=== PATIENT | female | born 1970 | race Caucasian/White ===

== ENCOUNTER 2019-08-06 18:53 | Emergency (ER) | payer OTHER ==
--- NOTE | 2019-08-06 20:01 | ER ---
Nurse's Notes [facility] Name: Ailin Dickson Age: 49 yrs Sex: Female : 1970 Arrival Date: 08/06/2019 Time: 18:55 Bed 10 Private MD: Diagnosis: Fall due to bumping against object;Pain in right leg-hamstring pull Presentation: 08/06 19:13 Presenting complaint: Patient states: I slipped on a freshly waxed floor on the fourth la1 floor and hyperextended my right leg and hit my left knee. Transition of care: patient was not received from another setting of care. Onset of symptoms was August 06, 2019. Risk Assessment: Do you want to hurt yourself or someone else? Patient reports no desire to harm self or others. Initial Sepsis Screen: Does the patient meet any 2 criteria? No. Patient's initial sepsis screen is negative. Does the patient have a suspected source of infection? No. Patient's initial sepsis screen is negative. Care prior to arrival: None. 19:13 Method Of Arrival: Wheelchair la1 19:13 Acuity: MADDI 4 la1 Triage Assessment: 20:11 General: Appears in no apparent distress. Behavior is calm, cooperative. ak1 Musculoskeletal: pt left with steady gait. Historical: - Allergies: 19:14 No Known Allergies; la1 - PMHx: 19:14 None; la1 - Immunization history:: Adult Immunizations up to date. - Social history:: Smoking status: Patient/guardian denies using tobacco. - Ebola Screening: : No symptoms or risks identified at this time. - Family history:: not pertinent. Screenin:12 Abuse screen: Denies threats or abuse. Denies injuries from another. Nutritional ak1 screening: No deficits noted. Tuberculosis screening: No symptoms or risk factors identified. Fall Risk None identified. Vital Signs: 19:14 BP 110 / 84; Pulse 81; Resp 16; Temp 97.5; Pulse Ox 100% on R/A; Weight 111.13 kg; la1 Height 5 ft. 6 in. (167.64 cm); 19:14 Body Mass Index 39.54 (111.13 kg, 167.64 cm) la1 ED Course: 18:55 Patient arrived in ED. as 19:14 Triage completed. la1 19:14 Arm band placed on right wrist. la1 19:34 Jean-Paul Reyes MD is Attending Physician. vijay 20:11 Shirley Joseph, RN is Primary Nurse. ak1 20:12 Patient has correct armband on for positive identification. ak1 20:12 No provider procedures requiring assistance completed. Patient did not have IV access ak1 during this emergency room visit. Administered Medications: No medications were administered Outcome: 20:00 Discharge ordered by . vijay 20:12 Discharged to home ambulatory. ak1 20:12 Condition: stable 20:12 Discharge instructions given to patient, Instructed on discharge instructions, follow up and referral plans. Demonstrated understanding of instructions, follow-up care. 20:13 Patient left the ED. ak1 Signatures: Jean-Paul Reyes MD MD cha Martinez, Amelia as Attema, Lee, RN RN la1 Shirley Joseph, MIREILLE RN ak1
--- NOTE | 2019-08-06 20:01 | EDPHYS ---
Physician Documentation [facility] Name: Ailin Dickson Age: 49 yrs Sex: Female : 1970 Arrival Date: 08/06/2019 Time: 18:55 Bed 10 Private MD: ED Physician Jean-Paul Reyes HPI: 08/06 19:56 This 49 yrs old Female presents to ER via Wheelchair with complaints of Fall vijay Injury, Leg Pain. 19:56 Details of fall: The patient fell from an upright position, while walking. Onset: The vijay symptoms/episode began/occurred just prior to arrival, today. Associated injuries: The patient sustained right hamstring, decreased range of motion, painful injury. Severity of symptoms: At their worst the symptoms were moderate, in the emergency department the symptoms are unchanged. The patient has not experienced similar symptoms in the past. Historical: - Allergies: 19:14 No Known Allergies; la1 - PMHx: 19:14 None; la1 - Immunization history:: Adult Immunizations up to date. - Social history:: Smoking status: Patient/guardian denies using tobacco. - Ebola Screening: : No symptoms or risks identified at this time. - Family history:: not pertinent. ROS: 19:56 Constitutional: Negative for fever, chills, and weight loss, Eyes: Negative for injury, vijay pain, redness, and discharge, ENT: Negative for injury, pain, and discharge, Neck: Negative for injury, pain, and swelling, Cardiovascular: Negative for chest pain, palpitations, and edema, Respiratory: Negative for shortness of breath, cough, wheezing, and pleuritic chest pain, Abdomen/GI: Negative for abdominal pain, nausea, vomiting, diarrhea, and constipation, Back: Negative for injury and pain, : Negative for injury, bleeding, discharge, and swelling, Skin: Negative for injury, rash, and discoloration, Neuro: Negative for headache, weakness, numbness, tingling, and seizure, Psych: Negative for depression, anxiety, suicide ideation, homicidal ideation, and hallucinations, Allergy/Immunology: Negative for hives, rash, and allergies, Endocrine: Negative for neck swelling, polydipsia, polyuria, polyphagia, and marked weight changes, Hematologic/Lymphatic: Negative for swollen nodes, abnormal bleeding, and unusual bruising. 19:56 MS/extremity: Positive for decreased range of motion, pain, of the left hamstring. Exam: 19:56 Constitutional: This is a well developed, well nourished patient who is awake, alert, vijay and in no acute distress. Head/Face: Normocephalic, atraumatic. Eyes: Pupils equal round and reactive to light, extra-ocular motions intact. Lids and lashes normal. Conjunctiva and sclera are non-icteric and not injected. Cornea within normal limits. Periorbital areas with no swelling, redness, or edema. ENT: Nares patent. No nasal discharge, no septal abnormalities noted. Tympanic membranes are normal and external auditory canals are clear. Oropharynx with no redness, swelling, or masses, exudates, or evidence of obstruction, uvula midline. Mucous membranes moist. Neck: Trachea midline, no thyromegaly or masses palpated, and no cervical lymphadenopathy. Supple, full range of motion without nuchal rigidity, or vertebral point tenderness. No Meningismus. Chest/axilla: Normal chest wall appearance and motion. Nontender with no deformity. No lesions are appreciated. Cardiovascular: Regular rate and rhythm with a normal S1 and S2. No gallops, murmurs, or rubs. Normal PMI, no JVD. No pulse deficits. Respiratory: Lungs have equal breath sounds bilaterally, clear to auscultation and percussion. No rales, rhonchi or wheezes noted. No increased work of breathing, no retractions or nasal flaring. Abdomen/GI: Soft, non-tender, with normal bowel sounds. No distension or tympany. No guarding or rebound. No evidence of tenderness throughout. Back: No spinal tenderness. No costovertebral tenderness. Full range of motion. Skin: Warm, dry with normal turgor. Normal color with no rashes, no lesions, and no evidence of cellulitis. Neuro: Awake and alert, GCS 15, oriented to person, place, time, and situation. Cranial nerves II-XII grossly intact. Motor strength 5/5 in all extremities. Sensory grossly intact. Cerebellar exam normal. Normal gait. Psych: Awake, alert, with orientation to person, place and time. Behavior, mood, and affect are within normal limits. 19:56 Musculoskeletal/extremity: Extremities: noted in the right hamstring: decreased ROM, pain, tenderness. Vital Signs: 19:14 BP 110 / 84; Pulse 81; Resp 16; Temp 97.5; Pulse Ox 100% on R/A; Weight 111.13 kg; la1 Height 5 ft. 6 in. (167.64 cm); 19:14 Body Mass Index 39.54 (111.13 kg, 167.64 cm) la1 MDM: 19:34 Patient medically screened. [facility] 19:59 Data reviewed: vital signs, nurses notes. [facility] Administered Medications: No medications were administered Disposition: 08/06/19 20:00 Discharged to Home. Impression: Fall due to bumping against object, Pain in right leg - hamstring pull. - Condition is Stable. - Discharge Instructions: Musculoskeletal Pain, RICE for Routine Care of Injuries, RICE for Routine Care of Injuries, [id number], Fall Prevention in the Home, [id number]-[id number], Heat Therapy, Heat Therapy, [id number]. - Medication Reconciliation Form, Thank You Letter, Antibiotic Education, Prescription Opioid Use form. - Follow up: Emergency Department; When: 2 - 3 days; Reason: Recheck today's complaints, Continuance of care, Re-evaluation by your physician. - Problem is new. - Symptoms have improved. Signatures: Jean-Paul Reyes MD MD cha Attema, Lee RN RN la1 Shirley Joseph RN RN ak1 Corrections: (The following items were deleted from the chart) 20:13 20:00 08/06/2019 20:00 Discharged to Home. Impression: Fall due to bumping against ak1 object; Pain in right leg - hamstring pull. Condition is Stable. Forms are Medication Reconciliation Form, Thank You Letter, Antibiotic Education, Prescription Opioid Use. Follow up: Emergency Department; When: 2 - 3 days; Reason: Recheck today's complaints, Continuance of care, Re-evaluation by your physician. Problem is new. Symptoms have improved. [facility]
[2019-08-06 21:48] VITALS: BP 110/84; TEMP 97.5; O2SAT 100
== END 2019-08-06 20:13 | disposition home or self-care (01) ==
LOC: ER 18:53
DX: M79.604 Pain in right leg (principal); W18.00XA Striking against unspecified object with subsequent fall, initial encounter; Y93.89 Activity, other specified; Y92.9 Unspecified place or not applicable; Y99.9 Unspecified external cause status
CPT/HCPCS: 99281

== ENCOUNTER 2020-02-21 08:20 | Emergency (ER) | payer OTHER, SELFPAY ==
--- NOTE | 2020-02-21 08:44 | EDPHYS ---
Physician Documentation [facility] Name: Ailin Dickson Age: 49 yrs Sex: Female : 1970 Arrival Date: 02/21/2020 Time: 08:23 Bed 13 Private MD: ED Physician Scotty Marcelino HPI: 02/20 08:35 This 49 yrs old Female presents to ER via Unassigned with complaints of Back ps1 Pain. 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 Large ps1 patient and now having lower back pain localized to right lower back and sacrum. Did not fall or injure back traumatically. Pain rated as moderate to severe with movement. No vertebral point tenderness, FND, urinary complaints, or anesthesia. . Historical: - Allergies: 08:44 No Known Allergies; jb4 - Immunization history:: Adult Immunizations up to date. - Social history:: Smoking status: Patient denies any tobacco usage or history of. ROS: 08:35 Constitutional: Negative for fever, chills, and weight loss, Eyes: Negative for injury, ps1 pain, redness, and discharge, ENT: Negative for injury, pain, and discharge, Cardiovascular: Negative for chest pain, palpitations, and edema, Respiratory: Negative for shortness of breath, cough, wheezing, and pleuritic chest pain, Abdomen/GI: Negative for abdominal pain, nausea, vomiting, diarrhea, and constipation, MS/Extremity: Negative for injury and deformity, Skin: Negative for injury, rash, and discoloration, Neuro: Negative for headache, weakness, numbness, tingling, and seizure. 08:35 Back: Positive for pain with movement. Exam: 08:35 Constitutional: This is a well developed, well nourished patient who is awake, alert, ps1 and in no acute distress. Head/Face: Normocephalic, atraumatic. Eyes: Pupils equal round and reactive to light, extra-ocular motions intact. Lids and lashes normal. Conjunctiva and sclera are non-icteric and not injected. 08:35 Chest/axilla: Inspection: normal. 08:35 Cardiovascular: Rate: normal. 08:35 Respiratory: the patient does not display signs of respiratory distress, Respirations: normal. 08:35 Back: pain, that is moderate, of the sacrum, right mid back and right low back, muscle spasm, is appreciated in the right mid back and right low back. Vital Signs: 08:37 BP 110 / 74; Pulse 96; Resp 16; Temp 97.9(O); Pulse Ox 99% ; Weight 113.4 kg; Height 5 jb4 ft. 6 in. (167.64 cm); Pain 6/10; 08:37 Body Mass Index 40.35 (113.40 kg, 167.64 cm) jb4 Procedures: 08:35 Performed Osteopathic Manipulation. Patient examined in prone and seated position. ps1 Styles screen performed. Paraspinal spasm and right sacroiliac pain. No vertebral point tenderness. HVLA performed to SI joint and mid thoracic area. Improved ROM. Still has expected pain. Improved paraspinal spasm and alignment. . MDM: 08:35 Data reviewed: vital signs, nurses notes. Counseling: I had a detailed discussion with ps1 the patient and/or guardian regarding: the historical points, exam findings, and any diagnostic results supporting the discharge/admit diagnosis, to return to the emergency department if symptoms worsen or persist or if there are any questions or concerns that arise at home. 08:43 Patient medically screened. ps1 Administered Medications: No medications were administered Disposition: 02/21/20 08:43 Discharged to Home. Impression: Muscle spasm of back. - Condition is Stable. - Discharge Instructions: Muscle Cramps and Spasms. - Prescriptions for Robaxin 500 mg Oral Tablet - take 2 tablet by ORAL route every 6 hours As needed; 40 tablet. - Work release form, Medication Reconciliation Form, Thank You Letter, Antibiotic Education, Prescription Opioid Use form. - Follow up: Emergency Department; When: As needed; Reason: Trouble breathing, Worsening of condition, weakness in leg, urinary complaints, incontinence. . - Problem is new. - Symptoms have improved. Signatures: An Casas RN RN ss Augustin Cavazos RN RN jb4 Scotty Marcelino MD MD ps1 Corrections: (The following items were deleted from the chart) 08:55 08:43 02/21/2020 08:43 Discharged to Home. Impression: Muscle spasm of back. Condition ss is Stable. Forms are Medication Reconciliation Form, Thank You Letter, Antibiotic Education, Prescription Opioid Use. Follow up: Emergency Department; When: As needed; Reason: Trouble breathing, Worsening of condition, weakness in leg, urinary complaints, incontinence. . Problem is new. Symptoms have improved. ps1
--- NOTE | 2020-02-21 08:44 | ER ---
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 Coronavirus screen: Proceed with normal triage. Patient denies a cough. Patient denies shortness of breath or difficulty breathing. Patient denies measured and/or subjective temperature greater than 100.4F prior to today's visit. Patient denies travel on a cruise ship or to a country the [facility] currently lists as an affected area. Patient denies contact with known and/or suspected case of COVID-19. Ebola Screen: Patient denies exposure to infectious person. Patient denies travel to an Ebola-affected area in the 21 days before illness onset. Initial Sepsis Screen: Does the patient meet any 2 criteria? No. Patient's initial sepsis screen is negative. Does the patient have a suspected source of infection? No. Patient's initial sepsis screen is negative. Risk Assessment: Do you want to hurt yourself or someone else? Patient reports no desire to harm self or others. Onset of symptoms was February 21, 2020. 08:37 Acuity: MADDI 4 jb4 08:37 Method Of Arrival: Ambulatory jb4 Historical: - Allergies: 08:44 No Known Allergies; jb4 - Immunization history:: Adult Immunizations up to date. - Social history:: Smoking status: Patient denies any tobacco usage or history of. Screenin:49 Abuse screen: Denies threats or abuse. Denies injuries from another. Nutritional ss screening: No deficits noted. Tuberculosis screening: Never had TB. Fall Risk None identified. Assessment: 08:30 General: Appears uncomfortable, Behavior is calm, cooperative, Denies fever, feeling ss ill, fatigue, chills. Pain: Complains of pain in back and right low back and right mid back and sacrum Pain currently is 7 out of 10 on a pain scale. Quality of pain is described as aching, tender, Is continuous. Neuro: Level of Consciousness is awake, alert, obeys commands, Oriented to person, place, time, situation. Cardiovascular: Capillary refill < 3 seconds is brisk in bilateral fingers. Respiratory: Airway is patent Respiratory effort is even, unlabored, Respiratory pattern is regular, symmetrical. GI: No signs and/or symptoms were reported involving the gastrointestinal system. EENT: Oral mucosa is moist. Derm: Skin is intact, is healthy with good turgor, Skin is pink, warm \T\ dry. normal. Musculoskeletal: Circulation, motion, and sensation intact. Range of motion: intact in all extremities. Vital Signs: 08:37 BP 110 / 74; Pulse 96; Resp 16; Temp 97.9(O); Pulse Ox 99% ; Weight 113.4 kg; Height 5 jb4 ft. 6 in. (167.64 cm); Pain 6/10; 08:37 Body Mass Index 40.35 (113.40 kg, 167.64 cm) jb4 ED Course: 08:23 Patient arrived in ED. am2 08:24 Scotty Marcelino MD is Attending Physician. ps1 08:25 Nadya Boone RN is Primary Nurse. ph 08:42 Triage completed. jb4 08:44 Arm band placed on right wrist. jb4 08:49 Patient has correct armband on for positive identification. Bed in low position. Call light in reach. 08:53 No provider procedures requiring assistance completed. Patient did not have IV access ph during this emergency room visit. Administered Medications: No medications were administered Outcome: 08:43 Discharge ordered by . ps1 08:53 Discharged to home ambulatory. ph 08:53 Condition: good 08:53 Discharge instructions given to patient, Instructed on discharge instructions, follow up and referral plans. medication usage, Demonstrated understanding of instructions, follow-up care, medications, Prescriptions given X 1. 08:55 Patient left the ED. Signatures: An Casas RN RN Nadya Boone RN RN Augustin Cavazos RN RN 4 Arlen Rosario am2 Scotty Marcelino MD MD ps1
[2020-02-21 09:00] VITALS: BP 110/74; TEMP 97.9; O2SAT 99
== END 2020-02-21 08:55 | disposition home or self-care (01) ==
LOC: ER 08:20
PROC: 7W0 Osteopathic, Anatomical Regions, Treatment (ICD-10-PCS; principal; 2020-02-21)
PROC: 7W02X3Z Osteopathic Treatment of Thoracic Region using High Velocity-Low Amplitude Forces (ICD-10-PCS; 2020-02-21)
DX: M62.830 Muscle spasm of back (principal)
CPT/HCPCS: 99282

== ENCOUNTER 2020-05-12 03:52 | Emergency (ER) | payer OTHER ==
[2020-05-12] MEDS ORDERED: ACETAMINOPHEN 500 MG TAB ONE (04:45)
[2020-05-12] MEDS ORDERED: dexAMETHasone 4 MG TAB ONE (04:45)
--- NOTE | 2020-05-12 05:32 | ER ---
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 Pt wh states feeling feverish at beginning of the shift and rechecked temp now at 102. Pt also C/O cough, a little SOB and body aches that all started tonight. Coronavirus screen: Surgical mask placed on patient. Patient moved to private room, placed in contact and droplet isolation with eye protection until further assessment. Patient reports a cough. Patient reports shortness of breath or difficulty breathing. Patient reports a measured and/or subjective temperature greater than 100.4F. Patient denies travel on a cruise ship or to a country the [facility] currently lists as an affected area. Patient reports contact with known and/or suspected case of COVID-19. Ebola Screen: Patient negative for fever greater than or equal to 101.5 degrees Fahrenheit, and additional compatible Ebola Virus Disease symptoms Patient denies exposure to infectious person. Initial Sepsis Screen: Does the patient meet any 2 criteria? Temp <36.0*C (96.8*F)) or > 38.3*C (100.9*F). HR > 90 bpm. Does the patient have a suspected source of infection? Yes: Productive cough/pneumonia If YES to both, name of provider notified: Jhon Low MD. Risk Assessment: Do you want to hurt yourself or someone else? Patient reports no desire to harm self or others. Onset of symptoms was May 12, 2020. 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 - Social history:: Smoking status: Patient reports the use of cigarette tobacco products, Patient uses [employer], Patient/guardian denies using. - Family history:: not pertinent. - Hospitalizations: : No recent hospitalization is reported. Screenin:45 Abuse screen: Denies threats or abuse. Denies injuries from another. Nutritional screening: No deficits noted. Tuberculosis screening: No symptoms or risk factors identified. Fall Risk None identified. Assessment: 04:15 Reassessment: Pt flagging for Sepsis, MD notified. 04:20 General: Appears in no apparent distress. Behavior is calm, cooperative, appropriate wh for age. Pain: Denies pain. Neuro: Level of Consciousness is awake, alert, obeys commands, Oriented to person, place, time, situation, Appropriate for age. Cardiovascular: Heart tones S1 S2. Respiratory: Reports shortness of breath cough that is Airway is patent Respiratory effort is even, unlabored, Respiratory pattern is regular, symmetrical, Breath sounds are clear bilaterally. GI: Abdomen is flat, non-distended. : No signs and/or symptoms were reported regarding the genitourinary system. EENT: Throat is pink. Derm: Skin is intact, is healthy with good turgor, Skin is pink, warm \T\ dry. normal. Musculoskeletal: Circulation, motion, and sensation intact. 05:48 Reassessment: Patient appears in no apparent distress at this time. No changes from previously documented assessment. Patient and/or family updated on plan of care and expected duration. Pain level reassessed. Patient is alert, oriented x 3, equal unlabored respirations, skin warm/dry/pink. Patient states feeling better. Patient states symptoms have improved. Vital Signs: 04:05 BP 131 / 95; Pulse 98; Resp 18; Temp 102; Pulse Ox 99% ; Weight 116.12 kg; Height 5 ft. 6 in. (167.64 cm); 04:47 BP 122 / 79; Pulse 98; Resp 18; Pulse Ox 98% on R/A; 05:48 BP 109 / 82; Pulse 94; Resp 18; Temp 99; Pulse Ox 98% on R/A; 04:05 Body Mass Index 41.32 (116.12 kg, 167.64 cm) ED Course: 04:01 Patient arrived in ED. ag3 04:01 Lucero Ham is Primary Nurse. 04:02 Jhon Low MD is Attending Physician. rn 04:45 Triage completed. 04:47 Arm band placed on right wrist. 04:47 Patient has correct armband on for positive identification. Bed in low position. Call light in reach. Side rails up X 1. Pulse ox on. NIBP on. 04:53 CXR XRAY In Process Unspecified. EDMS 05:49 No provider procedures requiring assistance completed. Patient did not have IV access during this emergency room visit. Administered Medications: 04:41 Drug: Tylenol 1000 mg Route: PO; 05:49 Follow up: Response: No adverse reaction; Temperature is decreased 04:41 Drug: Decadron 10 mg Route: PO; 05:49 Follow up: Response: No adverse reaction Outcome: 05:32 Discharge ordered by . rn 05:49 Discharged to home ambulatory. 05:49 Condition: stable 05:49 Discharge instructions given to patient, Instructed on discharge instructions, follow up and referral plans. POC Demonstrated understanding of instructions, follow-up care, POC 05:50 Patient left the ED. Signatures: Dispatcher [employer] EDMS Jhon Low MD MD rn [place], Lucero Siri Carmen ag3
--- NOTE | 2020-05-12 05:33 | EDPHYS ---
Physician Documentation [facility] Name: Ailin Dickson Age: 49 yrs Sex: Female : 1970 Arrival Date: 05/12/2020 Time: 04:01 Bed 8 Private MD: ED Physician Jhon Low HPI: 05/12 04:35 This 49 yrs old Female presents to ER via Unassigned with complaints of Fever.rn 04:35 The patient reports fever, that was measured at 102 degrees Fahrenheit. Onset: The rn symptoms/episode began/occurred this morning. Modifying factors: The patient has had contact with sick at the hospital. Associated signs and symptoms: Pertinent positives: headache, myalgias. Severity of symptoms: At their worst the symptoms were mild in the emergency department the symptoms are unchanged. The patient has not experienced similar symptoms in the past. 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 + vapes, no chronic medical problems. . 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 - Social history:: Smoking status: Patient reports the use of cigarette tobacco products, Patient uses [employer], Patient/guardian denies using. - Family history:: not pertinent. - Hospitalizations: : No recent hospitalization is reported. ROS: 04:35 Constitutional: + fever Eyes: Negative for injury, pain, redness, and discharge, ENT: rn Negative for injury, pain, and discharge, Neck: Negative for injury, pain, and swelling, Cardiovascular: Negative for chest pain, palpitations, and edema, Respiratory: Negative for shortness of breath, cough, wheezing, and pleuritic chest pain, Abdomen/GI: Negative for abdominal pain, nausea, vomiting, diarrhea, and constipation, MS/Extremity: Negative for injury and deformity, Skin: Negative for injury, rash, and discoloration, Neuro: Negative for numbness, tingling, and seizure. Exam: 04:35 Constitutional: This is a well developed, well nourished patient who is awake, alert, rn and in no acute distress. Head/Face: Normocephalic, atraumatic. Eyes: Conjunctiva wnl. Periorbital areas with no swelling, redness, or edema. Neck: Trachea midline, no masses palpated, and no cervical lymphadenopathy. Supple, full range of motion without nuchal rigidity. No Meningismus. Cardiovascular: Tachycardic, regular. No pulse deficits. Respiratory: Speaking full sentences. No increased work of breathing, no retractions or nasal flaring. Abdomen/GI: soft, non-tender Skin: Warm, dry MS/ Extremity: Pulses equal, no cyanosis. Neuro: Awake and alert, GCS 15 Vital Signs: 04:05 BP 131 / 95; Pulse 98; Resp 18; Temp 102; Pulse Ox 99% ; Weight 116.12 kg; Height 5 ft. wh 6 in. (167.64 cm); 04:47 BP 122 / 79; Pulse 98; Resp 18; Pulse Ox 98% on R/A; wh 05:48 BP 109 / 82; Pulse 94; Resp 18; Temp 99; Pulse Ox 98% on R/A; wh 04:05 Body Mass Index 41.32 (116.12 kg, 167.64 cm) MDM: 04:02 Patient medically screened. rn 05:30 Differential diagnosis: viral Infection, bacterial infection, URI. Data reviewed: vital rn signs, nurses notes, lab test result(s), radiologic studies, plain films, and as a result, I will discharge patient. Test interpretation: by ED physician or midlevel provider: plain radiologic studies, CXR neg for acute infiltrate. Counseling: I had a detailed discussion with the patient and/or guardian regarding: the historical points, exam findings, and any diagnostic results supporting the discharge/admit diagnosis, lab results, radiology results, the need for outpatient follow up, to return to the emergency department if symptoms worsen or persist or if there are any questions or concerns that arise at home. Special discussion: I discussed with the patient/guardian in detail that at this point there is no indication for admission to the hospital. It is understood, however, that if the symptoms persist or worsen the patient needs to return immediately for re-evaluation. 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 . 05/12 04:07 Order name: Flu; Complete Time: 05:10 ss 05/12 04:07 Order name: Strep; Complete Time: 05:10 ss 05/12 04:07 Order name: CXR XRAY 05/12 04:07 Order name: COVID-19 05/12 05:08 Order name: Throat Culture EDNV 05/12 04:07 Order name: Document PUI#; Complete Time: 04:41 ss 05/12 04:07 Order name: Droplet/Contact Precautions; Complete Time: 04:41 ss 05/12 04:07 Order name: Labs collected and sent; Complete Time: 04:41 ss 05/12 04:07 Order name: Notify Health Dept [phone]/ ; Complete Time: 04:41 ss 05/12 04:07 Order name: O2 Per Protocol; Complete Time: 04:42 ss Administered Medications: 04:41 Drug: Tylenol 1000 mg Route: PO; 05:49 Follow up: Response: No adverse reaction; Temperature is decreased 04:41 Drug: Decadron 10 mg Route: PO; 05:49 Follow up: Response: No adverse reaction Disposition: 05/12/20 05:32 Discharged to Home. Impression: Fever, unspecified, Viral Syndrome. - Condition is Stable. - Discharge Instructions: Fever, Adult, COVID-19. - Medication Reconciliation Form, Thank You Letter, Antibiotic Education, Prescription Opioid Use form. - Follow up: Private Physician; When: As needed; Reason: Recheck today's complaints, Re-evaluation by your physician. - Problem is new. - Symptoms are unchanged. Signatures: Dispatcher [employer] Jhon Sequeira MD MD rn Smirch, Shelby, RN RN ss Habalo, Winsy Corrections: (The following items were deleted from the chart) 05:50 05:32 05/12/2020 05:32 Discharged to Home. Impression: Fever, unspecified; Viral wh Syndrome. Condition is Stable. Forms are Medication Reconciliation Form, Thank You Letter, Antibiotic Education, Prescription Opioid Use. Follow up: Private Physician; When: As needed; Reason: Recheck today's complaints, Re-evaluation by your physician. Problem is new. Symptoms are unchanged. rn
[2020-05-12 06:08] VITALS: TEMP 102
[2020-05-12 07:13] VITALS: BP 122/79; O2SAT 98
--- NOTE | 2020-05-12 12:15 | RAD REPORT ---
EXAM DESCRIPTION: XR Chest, 1 View CLINICAL HISTORY: The patient is 49 years old and is Female; PUI;Cough TECHNIQUE: Frontal view of the chest. COMPARISON: No relevant prior studies available. FINDINGS: LUNGS: There are slightly low lung volumes. No consolidation. PLEURAL SPACE: Unremarkable. No pneumothorax. HEART: Unremarkable. No cardiomegaly. MEDIASTINUM: Unremarkable. BONES/JOINTS: Unremarkable. IMPRESSION: No acute cardiopulmonary process. Electronically signed by: Lexie Aldana MD 05/12/2020 5:19 AM CDT Due to temporary technical issues with the PACS/Fluency reporting system, reports are being signed by the in house radiologist without review as a courtesy to ensure prompt reporting. The interpreting r adiologist is fully responsible for the content of the report.
== END 2020-05-12 05:50 | disposition home or self-care (01) ==
LOC: ER 03:52
DX: U07.1 COVID-19 (principal); B34.9 Viral infection, unspecified; F17.290 Nicotine dependence, other tobacco product, uncomplicated
CPT/HCPCS: 87070; 87081; 87804 ×2; 71045; 99283; U0002; J8540

== ENCOUNTER 2020-08-20 19:38 | Emergency (ER) | payer OTHER ==
--- OUTSIDE RECORDS SUMMARY | 2020-08-20 19:39 | XMS REPORT ---
:1970 Author Organization [employer] Care Team Providers Name Role Phone Marco Antonio Lopez Provider Role Unavailable Allergies, Adverse Reactions, Alerts Substance Reaction Event Type N.K.D.A. Info Not Available Non Drug Allergy Problems Problem Type Condition Code Onset Dates Condition Statu s Assessment Elevated LFTs R79.89 Active Assessment Type 2 diabetes mellitus with E11.65 Active hyperglycemia, without long-term current use of insulin Assessment Mixed hyperlipidemia E78.2 Active Problem Type 2 diabetes mellitus with E11.65 Active hyperglycemia, without long-term current use of insulin Problem Current moderate episode of major F32.1 Active depressive disorder without prior episode Problem Mixed hyperlipidemia E78.2 Active Problem Body mass index (BMI) 40.0-44.9, Z68.41 Active adult Problem Nicotine dependence, uncomplicated, F17.200 Active unspecified nicotine product type Problem Morbid (severe) obesity due to E66.01 Active excess calories Assessment Nicotine dependence, uncomplicated, F17.200 Active unspecified nicotine product type Assessment Elevated BP without diagnosis of R03.0 Active hypertension Assessment History of 2019 novel coronavirus Z86.19 Active disease (COVID-19) Assessment Body mass index (BMI) 40.0-44.9, Z68.41 Active adult Assessment Current moderate episode of major F32.1 Active depressive disorder without prior episode Assessment Morbid (severe) obesity due to E66.01 Active excess calories Assessment Equivocal immunity to COVID-19 Z78.9 Active virus Medications Medication Code Code Instructions Start End Status Dosage System Date Date Atorvastatin ND 00618926844 10 MG Orally Jul 15, Active 1 tablet Calcium Once a day 2019 Xigduo XR ND 08865476274 5-1000 MG Orally Jul 15, Oct 12, Active 1 tablet Once a day 2019 2019 Zoloft ND 62752184830 50 MG Orally Jul 15, Active Take 1 /2 Once a day 2019 tab QD x 1 week then take 1 tab QD Results No Known Results Summary Purpose [employer] Submission
--- OUTSIDE RECORDS SUMMARY | 2020-08-20 19:39 | XMS REPORT ---
:1970 Author Organization [facility] Address [address] [place] [address] Care Team Providers Name Role Phone Marco Antonio Lopez Unavailable [phone] PROBLEMS Type Condition ICD9-CM MWV61-UE Onset Condition SNOMED Code Notes Code Code Dates Status Problem Type 2 diabetes E11.65 Active 47605665 mellitus with hyperglycemia, without long-term current use of insulin Problem Mixed E78.2 Active 064619874 hyperlipidemia Problem Body mass index Z68.41 Active 885024448 (BMI) 40.0-44.9, adult Problem Morbid (severe) E66.01 Active 65444725716692 obesity due to excess calories Problem Nicotine F17.200 Active 42434283 dependence, uncomplicated, unspecified nicotine product type Problem Current moderate F32.1 Active 28694364 episode of major depressive disorder without prior episode ALLERGIES No Known Allergies ENCOUNTERS from 1970 to 2020-08-12 Encounter Location Date Provider Diagnosis [facility] [address], Marco Antonio John Type [address], [place] [address] hyperglycemia, without long-term curre nt use of insulin E11. 65 ; Current moderat e episode of donte r depressive diso rder without prior e pisode F32.1 ; Mixed hyperlipidemia E78.2 ; Elevated LFTs R 79.89 ; Equivocal immun ity to COVID-19 virus Z78.9 ; History of 2019 novel coronavirus dis ease (COVID-19) Z86. 19 ; Elevated BP wit hout diagnosis of hypertension R0 3.0 ; Morbid (severe) obesity due to excess c alories E66.01 ; Body m ass index (BMI) 40. 0-44.9, adult Z68.41 an d Nicotine depend ence, uncomplicated, unspecified garret otine product type F1 7.200 IMMUNIZATIONS Vaccine Route Administration Date Status PNEUMAVAX 23 IM Intramuscular Jun 24, 2020 Administered Hepatitis A (adult) Unknown April 07, 2016 Administered Afluria Unknown Sep 12, 2019 Administered Adacel (Tdap) Unknown Jun 08, 2016 Administered SOCIAL HISTORY Tobacco Use: Social History Observation Description Date Details (start date - stop date) Never Smoker Sex Assigned At : Social History Observation Description Sex Assigned At Unknown PHQ9 Question Answer Notes Little interest or pleasure in doing things Nearly every day Feeling down, depressed, or hopeless Nearly every day Trouble falling or staying asleep or sleeping too much More than half the days Feeling tired or having little energy Nearly every day Poor appetite or overeating More than half the days Feeling bad about yourself, or that you are a failure, Sever al days or have let yourself or your family down Trouble concentrating on things, such as reading the Not at all newspaper or watching television Moving or speaking so slowly that other people could Not at all have noticed; or the opposite, being so fidgety or restless that you have been moving around a lot more than usual Total Score 14 Interpretation Moderate Depression Thoughts that you would be better off or of Not at all hurting yourself in some way Alcohol Screen Question Answer Notes Did you have a drink containing alcohol in the past Yes year? Points 1 Interpretation Negative How often did you have a drink containing alcohol in Monthly or less (1 point) the past year? Tobacco Use/Smoking Question Answer Notes Are you a never smoker REASON FOR REFERRAL No Information VITAL SIGNS Height 67 in Aug, Weight 266 lbs Aug, Temperature 97.9 degrees Fahrenheit Aug, BMI 41.66 kg/m2 Aug, Blood pressure systolic 130 mm Hg Aug, Blood pressure diastolic 74 mm Hg Aug, MEDICATIONS Medication SIG (Take, Route, Frequency, Start Date End Date Status Duration) Atorvastatin Calcium 10 MG 1 tablet Orally Once a day for Active 30 day(s) Zoloft 100 MG 1 tablet Orally Once a day for Active 30 day(s) Xigduo XR 5-1000 MG 1 tablet Orally Once a day for Active 30 day(s) PROCEDURES No Information RESULTS No Results REASON FOR VISIT 4 wk f/u MEDICAL (GENERAL) HISTORY Type Description Date Surgical History Appendectomy 2006 Surgical History Colectomy-gall stones 2009 Goals Section No Information Health Concerns No Information MEDICAL EQUIPMENT No Information MENTAL STATUS No Information FUNCTIONAL STATUS No Information ASSESSMENTS Encounter Date Diagnosis Notes Aug, Mixed hyperlipidemia (ICD-10 - E78.2) Aug, Morbid (severe) obesity due to excess ca lories (ICD-10 - E66.01) Aug, Current moderate episode of major depres sive disorder without prior episode (ICD-10 - F32.1) Aug, Elevated BP without diagnosis of hyperte nsion (ICD-10 - R03.0) Aug, Nicotine dependence, uncomplicated, unsp ecified nicotine product type (ICD-10 - F17.200) Aug, Elevated LFTs (ICD-10 - R79.89) Aug, Body mass index (BMI) 40.0-44.9, adult ( ICD-10 - Z68.41) Aug, Type 2 diabetes mellitus with hyperglyce myrna, without long-term current use of insulin (ICD-10 - E11.65) Aug, History of 2019 novel coronavirus diseas e (COVID-19) (ICD-10 - Z86.19) Aug, Equivocal immunity to COVID-19 virus (IC D-10 - Z78.9) PLAN OF TREATMENT Medication Medication Name Sig Start Date Stop Date Atorvastatin Calcium 10 MG 1 tablet Orally Once a day for 30 day(s) Xigduo XR 5-1000 MG 1 tablet Orally Once a day for 30 day(s) Zoloft 100 MG 1 tablet Orally Once a day for 30 day(s) Treatment Notes Assessment Notes Clinical Notes Type 2 diabetes mellitus with NEW Dx. Education given. Roseline nue hyperglycemia, without long-term Xigdueo Xr 03/1000 mg QD and titrate current use of insulin as tolerated. Samples given. Side effect discussed. Diabetes EducationDiabetes is a disorder that disrupts the way your body uses glucose (sugar). It is a chronic medication condition that requires regular monitoring and treatment throughout your life. Treatment includes: lifestyle modification, self-care measures, and medication. Fortunately, these treatments can keep the blood sugar levels close to normal and minimize the risk of developing complications. The primary blood test to measure the progress of diabetes is the Hemoglobin A1c. Normal levels is less than 7.0 but less than 6.5 is considered excellent control. Fasting blood sugars should be in the range of 80-120 while random blood sugars should range below 200 especially after meals. Carbohydrate (sugar) intake for diabetics should be below 45 grams per meal and 15 grams per snack. Diabetic preventive care is vital to prevent complications, so it is important to have yearly diabetic eye and foot exams with specialists. If your diabetes is not controlled, then contact your doctor to further address.Medication may need to be adjusted and/or added. Current moderate episode of major Actively listented. Suppor t given. depressive disorder without prior Discussed treatment option s. episode Medication + Counseling/Therapy. Infomation provided for psychologist for therapy options, encouraged to call to make an appt. increase Zoloft 100 mg and titrate as tolerated. Instructions and side effects discussed. Close f/u in 4 week., -- Depression Education: Depression is a brain disease that makes you sad, but it is different than normal sadness. Depressed people feel down most of the time for at least 2 weeks. They also have at least one of these 2 symptoms: 1. They no longer enjoy or care about doing the things they used to like to do. 2. They feel sad, down, hopeless, or cranky most of the day, almost every day. It can also make you: lose or gain weight; sleep too much or too little; fell tired or like you have no energy; feel guilty or like you are worth nothing; forget things or feel confused; and think about or suicide. Medication and/or seeing a counselor (such as a psychiatrist, psychologist, nurse or aids social worker) may be necessary to treat depression. Both treatments take time to work. If you ever feel like you might hurt yourself or some else, then call your doctor or call 911 or go to the ER. Mixed hyperlipidemia Reduced to Lipitor 10-->5 mg mg and titrate as tolerated. Side effect discussed. Add vitamin D and co-Q10. Then titrate as tolerated. Hyperlipidemia Education: Hyperlipidemia refers to increased levels of lipids(fats) in the blood, including cholesterol and triglycerides. This can significantly increase your risk of developing coronary artery disease and peripheral artery disease. This can cause chest pain, heart attack, stroke, and fatigue. Treatment is recommended to decrease your risk. Treatment includes: lifestyle modification, low salt/low fat diet, exercise, tobacco cessation, low alcohol intake and sometimes medication. Blood tests (TC,TG, HDL, LDL) are utilized to determine treatment regimens. TC(Total cholesterol) should be below 200. TG(Total Triglycerides) should be below 150. HDL(Good cholesterol) should be above 40. LDL(Bad Cholesterol) should be below 130(if you have one risk factor) or less than 100( if you have more than one risk factor or have DM/CAD/PVD). Compliance with medication and treatment is vital. If you have questions, talk to your doctor. Elevated LFTs Discussed DDX. Education given. Asymptomatic. Elevated BP without diagnosis of DASH Diet discussed. Instru cted to hypertension measure BP at home and bring in log to f/u appt. Instructions and logs given. Education given. Morbid (severe) obesity due to Counseling given. Education g alan. excess calories Utilized the 5-A''s approach to increase patient motivation and behavioral change. ASK: Patient expressed desire/readiness to change and premission was obtained to discuss. ASSESS: BMI class discussed. In addition, patient''s barrier to weight loss and identified drivers and complications. ADVISE: Discussed benefits of modest weight loss and long-term strategy as well. Educated on risks and complications of obesity on health. Treatment options were discussed including but not limited to non-surgical (medications, gym, diet/exercise) and surgical options. AGREE: Realistic weight-loss goal discussed. Behavioral goals done. Patient agreed with treatment plan. ASSIST: Provided education and resources. Plan made to address drivers and barriers. Close follow-up arranged. START: Walking daily, reducing soda and increased hydration with water of at least 64 ounces. Body mass index (BMI) 40.0-44.9, Patient planning on having gastric adult sleeve. Nicotine dependence, Strongly encourged on cessation. uncomplicated, unspecified Education given. Counseling given . nicotine product type Pick a quit date. , Education, counseling done at this visit, offered web sites and medicine to help. We did discussed not only the CAD risk also the risk for multiples cancers, peripheral neuropathy, etc. www.quit[facility] gives you tip[s and tricks, quit smoking chelist, download my quit giovana and read quit smoking benefits too. More than 3 minutes were spent with patient. Will follow-up as well. Treatment Notes Test Name Order Date Lipid Panel With LDL/HDL Ratio 2020-08-12 Microalbumin/Creat Ratio, Random Ur 2020-08-12 Hemoglobin A1c 2020-08-12 Comp. Metabolic Panel (14) (CMP) 2020-08-12 CBC With Differential/Platelet 2020-08-12 Next Appt Details as scheduled in 10/2020 Reason: Provider Name:Marco Antonio Lopez, 2020-10-13 0 8:40:00 AM, [address], [place], [address], Insurance Providers Payer Name Payer Address Payer Insured Patient Coverage Cover age End Phone Name Relationship to Start Date Conrado e Insured [employer] [address] [phone] Moises Dickson self [address] [phone]
--- OUTSIDE RECORDS SUMMARY | 2020-08-20 19:39 | XMS REPORT ---
:1970 Author Organization [facility] Address [address] [place] [address] Care Team Providers Name Role Phone Marco Antonio Lopez Unavailable [phone] PROBLEMS Type Condition ICD9-CM NYQ58-SA Onset Condition SNOMED Code Notes Code Code Dates Status Problem Type 2 diabetes E11.65 Active 45157977 mellitus with hyperglycemia, without long-term current use of insulin Problem Mixed E78.2 Active 704932018 hyperlipidemia Problem Body mass index Z68.41 Active 724584531 (BMI) 40.0-44.9, adult Problem Morbid (severe) E66.01 Active 21219369259507 obesity due to excess calories Problem Nicotine F17.200 Active 29508483 dependence, uncomplicated, unspecified nicotine product type Problem Current moderate F32.1 Active 31895373 episode of major depressive disorder without prior episode ALLERGIES No Known Allergies ENCOUNTERS from 1970 to 2020-08-13 Encounter Location Date Provider Diagnosis [facility] [address], [place] [address] IMMUNIZATIONS Vaccine Route Administration Date Status PNEUMAVAX [...] REASON FOR REFERRAL No Information VITAL SIGNS No information MEDICATIONS Medication SIG (Take, Route, Frequency, Start Date End Date Status Duration) Atorvastatin Calcium 10 MG 1 tablet Orally Once a day for Active 30 day(s) Zoloft 100 MG 1 tablet Orally Once a day for Active 30 day(s) Xigduo XR 5-1000 MG 1 tablet Orally Once a day for Active 30 day(s) PROCEDURES No Information RESULTS No Results REASON FOR VISIT Rx DM supply. atorvastatin s/e MEDICAL (GENERAL) HISTORY Type Description Date Surgical History Appendectomy 2006 Surgical History Colectomy-gall stones 2010 Goals Section No Information Health Concerns No Information MEDICAL EQUIPMENT No Information MENTAL STATUS No Information FUNCTIONAL STATUS No Information ASSESSMENTS No Information PLAN OF TREATMENT Medication Medication Name Sig Start Date Stop Date Atorvastatin Calcium 10 MG 1 tablet Orally Once a day for 30 day(s) Xigduo XR 5-1000 MG 1 tablet Orally Once a day for 30 day(s) Zoloft 100 MG 1 tablet Orally Once a day for 30 day(s) Next Appt Details Provider Name:Marco Antonio Lopez, 2020-10-13 0 8:40:00 AM, [address], [place], [address], Insurance Providers Payer Name Payer Address Payer Insured Patient Coverage Cover age End Phone Name Relationship to Start Date Conrado e Insured [employer] [address] [phone] Moises Dickson self [address] [phone]
--- OUTSIDE RECORDS SUMMARY | 2020-08-20 19:39 | XMS REPORT ---
:1970 Author Organization [employer] Care Team Providers Name Role Phone LopezMarco Antonio Provider Role Unavailable Allergies No Known Allergies Problems Problem Type Condition Code Onset Dates Condition Statu s Problem Type 2 diabetes mellitus with E11.65 Active hyperglycemia, without long-term current use of insulin Problem Current moderate episode of major F32.1 Active depressive disorder without prior episode Problem Mixed hyperlipidemia E78.2 Active Problem Body mass index (BMI) 40.0-44.9, Z68.41 Active adult Problem Nicotine dependence, uncomplicated, F17.200 Active unspecified nicotine product type Problem Morbid (severe) obesity due to E66.01 Active excess calories Medications No Known Medications Results No Known Results Summary Purpose eClinicalWorks Submission
--- OUTSIDE RECORDS SUMMARY | 2020-08-20 19:39 | XMS REPORT | Continuity of Care Document ---
:1970 Author Organization [facility] t Address [address] [place] [address] Care Team Providers Name Role Phone Unavailable Unavailable Unavailable Problems This patient has no known problems. Allergies, Adverse Reactions, Alerts This patient has no known allergies or adverse reactions. Medications Ordered Filled Start Stop Current Ordering Indication Dosage Frequency Signature Comments Components Source Medication Medication Date Date Medication? Clinician (SIG) Name Name Atorvastati Atorvastati Yes Marco Antonio [address] [facility] Calcium 07-15 [facility] - [facility]: [facility] Zoloft Zoloft Yes Marco Antonio Take 1/[address] [facility] 08 [facility] tab QD x 1 [facility] - 00:[facility]: week then [facility] 00 take 1 tab l [facility] Xigduo XR Xigduo XR 2019- Yes Marco Antonio [address] [facility] 07[facility]15 [facility] - [facility]: [facility] Immunizations Ordered Filled Immunization Date Status Comments Sourc e Immunization Name Name PNEUMAVAX 23 PNEUMAVAX 23 2020-06-[address] [facility] [facility] - 00[facility]00 [facility] Procedures This patient has no known procedures. Encounters Start End Encounter Admission Attending Care Care Encounter Source Date/Time Date/Time Type Type Clinicians Facility Department ID 2020-08-12 2020-08-[address] [facility] [id number] [facility] 2020-08-08 2020-08-[address] [facility] [id number] [facility] Clinics 2020-07-15 2020-07-15 [facility] [id number] 08[facility]30[facility] 08:30:[address] [facility] [employer] [facility] 2020-07-10 2020-07-10 [facility] [id number] 08:52:00 08:52:[address] [facility] 2020-06-24 2020-06-24 [facility] [id number] 15:30[facility]00 15:30:00 [facility] ent Clinics Results This patient has no known results.
--- OUTSIDE RECORDS SUMMARY | 2020-08-20 19:39 | XMS REPORT ---
:1970 Author Organization [employer] Care Team Providers Name Role Phone John Marco Antonio Provider Role Unavailable Allergies, Adverse Reactions, Alerts Substance Reaction Event Type N.K.D.A. Info Not Available Non Drug Allergy Problems Problem Type Condition Code Onset Dates Condition Statu s Assessment Morbid (severe) obesity due to E66.01 Active excess calories Assessment Need for pneumococcal vaccination Z23 Active Assessment Elevated BP without diagnosis of R03.0 Active hypertension Assessment Nicotine dependence, uncomplicated, F17.200 Active unspecified nicotine product type Assessment Body mass index (BMI) 40.0-44.9, Z68.41 Active adult Problem Body mass index (BMI) 40.0-44.9, Z68.41 Active adult Problem Nicotine dependence, uncomplicated, F17.200 Active unspecified nicotine product type Problem Morbid (severe) obesity due to E66.01 Active excess calories Assessment Screening mammogram, encounter for Z12.31 Active Assessment History of 2019 novel coronavirus Z86.19 Active disease (COVID-19) Assessment Encounter for wellness examination Z00.00 Active in adult Medications No Known Medications Results No Known Results Immunizations Vaccine Administration Date PNEUMAVAX Jun 24, 2020 Summary Purpose eClinicalWorks Submission
--- NOTE | 2020-08-20 20:48 | EDPHYS ---
Physician Documentation [facility] Name: Ailin Dickson Age: 50 yrs Sex: Female : 1970 Arrival Date: 08/20/2020 Time: 19:39 Bed 25 Private MD: ED Physician Lul Mendoza HPI: 08/20 20:25 This 50 yrs old Female presents to ER via Ambulatory with complaints of cp Laceration To Finger. 20:25 The patient has a laceration related to: cooking, from a knife, occurred at home, The cp injury was accidental. 20:25 The laceration(s) is(are) located on the medial side of right little finger. Onset: The cp symptoms/episode began/occurred just prior to arrival. Associated signs and symptoms: Pertinent positives: heavy bleeding, Pertinent negatives: deformity, suspected foreign body. 20:25 Patient reports tetanus UTD. cp Historical: - Allergies: 19:49 No Known Allergies; sg - PMHx: 19:55 None; sg - PSHx: 19:49 Cholecystectomy; Appendectomy; ; sg - Immunization history:: Last tetanus immunization: November 07, 2014. - Social history:: Smoking status: Patient denies any tobacco usage or history of. ROS: 20:30 Skin: Positive for avulsion, laceration(s), of the right little finger. cp 20:30 Constitutional: Negative for fever. cp 20:30 MS/extremity: Negative for decreased range of motion, deformity, paresthesias. 20:30 All other systems are negative. Exam: 20:35 Constitutional: The patient appears in no acute distress, alert, awake, well developed, cp well nourished. 20:35 Head/Face: Normocephalic, atraumatic. cp 20:35 Cardiovascular: Rate: normal. 20:35 Respiratory: the patient does not display signs of respiratory distress, Respirations: normal. 20:35 Musculoskeletal/extremity: Extremities: noted in the right small finger: skin avulsion, ROM: full active range of motion, in the right small finger, Perfusion: the extremity is normally perfused throughout, Sensation intact. Tendon exam: specific tendon testing normal through active and passive range of motion no signs of nail damage of right small finger, moderate bleeding from wound. Vital Signs: 19:49 BP 118 / 79; Pulse 76; Resp 18; Temp 97.7; Pulse Ox 100% on R/A; sg MDM: 20:09 Patient medically screened. cp 20:20 Differential diagnosis: superficial laceration, tendon injury, vascular injury, skin cp avulsion, open fracture. 20:45 Data reviewed: vital signs, nurses notes. cp 20:45 Counseling: I had a detailed discussion with the patient and/or guardian regarding: the cp historical points, exam findings, and any diagnostic results supporting the discharge/admit diagnosis, the need for outpatient follow up, a family practitioner, to return to the emergency department if symptoms worsen or persist or if there are any questions or concerns that arise at home. Response to treatment: the patient's symptoms have markedly improved after treatment, Wound cleaned. Surgiseal and pressure dressing applied to control bleeding. Will discharge to home for continued monitoring. 08/20 20:20 Order name: Wound Care: please clean and dress wound with surgiseal, pressure dressing; cp Complete Time: 21:02 Administered Medications: No medications were administered Disposition: 21:10 Chart complete. cp Disposition: 08/20/20 20:47 Discharged to Home. Impression: Laceration without foreign body of right little finger without damage to nail. - Condition is Stable. - Discharge Instructions: Nonsutured Laceration Care. - Prescriptions for Keflex 500 mg Oral Capsule - take 1 capsule by ORAL route every 8 hours for 10 days; 30 capsule. - Medication Reconciliation Form, Thank You Letter, Antibiotic Education, Prescription Opioid Use form. - Follow up: Private Physician; When: 48 Hours; Reason: Wound Recheck. - Problem is new. - Symptoms have improved. Signatures: Julián Lomeli RN RN sg Jean-Paul Velarde PA PA cp Corrections: (The following items were deleted from the chart) 21:07 20:47 08/20/2020 20:47 Discharged to Home. Impression: Laceration without foreign body sg of right little finger without damage to nail. Condition is Stable. Forms are Medication Reconciliation Form, Thank You Letter, Antibiotic Education, Prescription Opioid Use. Follow up: Private Physician; When: 48 Hours; Reason: Wound Recheck. Problem is new. Symptoms have improved. cp
--- NOTE | 2020-08-20 20:48 | ER ---
Nurse's Notes [facility] Name: Ailin Dickson Age: 50 yrs Sex: Female : 1970 Arrival Date: 08/20/2020 Time: 19:39 Bed 25 Private MD: Diagnosis: Laceration without foreign body of right little finger without damage to nail Presentation: 08/20 19:49 Chief complaint: Patient states: Laceration to the Left pinky finger sustained by a sg knife while cutting. Coronavirus screen: Client denies travel out of the [place] in the last 14 days. At this time, the client does not indicate any symptoms associated with coronavirus-19. Ebola Screen: Patient negative for fever greater than or equal to 101.5 degrees Fahrenheit, and additional compatible Ebola Virus Disease symptoms Patient denies exposure to infectious person. Patient denies travel to an Ebola-affected area in the 21 days before illness onset. No symptoms or risks identified at this time. Initial Sepsis Screen: Does the patient meet any 2 criteria? No. Patient's initial sepsis screen is negative. Does the patient have a suspected source of infection? No. Patient's initial sepsis screen is negative. Risk Assessment: Do you want to hurt yourself or someone else? Patient reports no desire to harm self or others. Onset of symptoms was August 20, 2020. Care prior to arrival: None. Mechanism of Injury: Laceration sustained at home, while cooking, from knife, Injury was accidental. Transition of care: patient was not received from another setting of care. 19:49 Acuity: MADDI 4 sg 19:49 Method Of Arrival: Ambulatory sg Historical: - Allergies: 19:49 No Known Allergies; sg - PMHx: 19:55 None; sg - PSHx: 19:49 Cholecystectomy; Appendectomy; ; sg - Immunization history:: Last tetanus immunization: November 07, 2014. - Social history:: Smoking status: Patient denies any tobacco usage or history of. Screenin:00 Abuse screen: Denies threats or abuse. Denies injuries from another. Nutritional sg screening: No deficits noted. Tuberculosis screening: No symptoms or risk factors identified. Never had TB. Fall Risk None identified. Assessment: 19:49 General: Appears in no apparent distress. well groomed, well developed, well nourished, sg Behavior is calm, cooperative, appropriate for age. Pain: Complains of pain in left hand Quality of pain is described as throbbing. Neuro: Level of Consciousness is awake, alert, obeys commands, Oriented to person, place, time, situation, Gait is steady, Speech is normal, Facial symmetry appears normal. Cardiovascular: Patient's skin is warm and dry. Respiratory: Airway is patent Respiratory effort is even, unlabored, Respiratory pattern is regular, symmetrical. GI: No signs and/or symptoms were reported involving the gastrointestinal system. : No signs and/or symptoms were reported regarding the genitourinary system. EENT: No signs and/or symptoms were reported regarding the EENT system. Derm: Skin is pink, warm \T\ dry. Musculoskeletal: Circulation, motion, and sensation intact. Range of motion: intact in all extremities. Injury Description: Avulsion sustained to dorsal aspect of middle phalanx of left little finger and palmar aspect of middle phalanx of left little finger. Vital Signs: 19:49 BP 118 / 79; Pulse 76; Resp 18; Temp 97.7; Pulse Ox 100% on R/A; sg ED Course: 18:15 Dressings: Kerlix X 1; right little finger non-adherent dressing x 1 right little sg finger SURGICELL X1. Wound care: to avulsion located on dorsal aspect of middle phalanx of right little finger and palmar aspect of middle phalanx of right little finger was cleaned with with NS, CHLOROHEXIDINE, Patient tolerated well. 19:39 Patient arrived in ED. cl3 19:48 Julián Lomeli, MIREILLE is Primary Nurse. sg 19:53 Jean-Paul Velarde PA is PHCP. cp 19:53 Lul Mendoza MD is Attending Physician. cp 19:56 Triage completed. sg 19:56 Arm band placed on. sg 20:00 Patient has correct armband on for positive identification. Bed in low position. Call sg light in reach. Side rails up X2. Pulse ox on. NIBP on. 20:00 Warm blanket given. Head of bed elevated. sg 21:00 No provider procedures requiring assistance completed. Patient did not have IV access sg during this emergency room visit. Administered Medications: No medications were administered Outcome: 20:47 Discharge ordered by . cp 21:00 Discharged to home ambulatory, with family. sg 21:00 Condition: good 21:00 Discharge instructions given to patient, Instructed on discharge instructions, follow up and referral plans. medication usage, safety practices, wound care, Demonstrated understanding of instructions, follow-up care, wound care, Prescriptions given X 1. 21:07 Patient left the ED. sg Signatures: Julián Lomeli, RN RN sg Jean-Paul Velarde PA PA cp Lewis, Charde cl3 Corrections: (The following items were deleted from the chart) 08/21 03:08 08/20 21:00 BP 120 / 77; Pulse 72bpm; Resp 18bpm; Pulse Ox 100% RA; sg sg
== END 2020-08-20 21:07 | disposition home or self-care (01) ==
LOC: ER 19:38
DX: S61.216A Laceration without foreign body of right little finger without damage to nail, initial encounter (principal); W26.0XXA Contact with knife, initial encounter; Y93.G3 Activity, cooking and baking; Y92.009 Unspecified place in unspecified non-institutional (private) residence as the place of occurrence of the external cause
CPT/HCPCS: 99283

== ENCOUNTER 2020-10-31 01:21 | Emergency (ER) | payer OTHER ==
--- OUTSIDE RECORDS SUMMARY | 2020-10-31 01:24 | XMS REPORT | Clinical Summary ---
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 after 10/31/2019 Results SARS-CoV2/RT-PCR ([facility]) (05/12/2020 8:01 AM CDT) SARS-COV2/RT-PCR Positive (AA) Not Detected, [facility] Negative [facility] SARS-COV-2 [facility] PERFORMING LAB [facility] Specimen Other - Nasopharyngeal wall structure (b sonia structure) Narrative Performed At Results are for the detection of SARS-CoV-2 [facility] RNA. The SARS-CoV-2 RNA is generally detectable in nasopharyngeal swab specimens during the acute phase of infection. Positive results are indicative of active infection with SARS-CoV-2 and the patient is presumed to be contagious. Laboratory test results should always be considered in the clinical correlation with patient history and other epidemiological and diagnostic information that is necessary to determine patient infection status. Patient management decisions should follow current CDC guidelines. Positive results do not rule out bacterial infection or co-infection with other viruses. The agent detected may not be the definite cause of disease. The limit of detection for this assay is 800 copies/mL. This SARS CoV-2 test is a real-time RT-PCR test intended for the qualitative detection of nucleic acid from SARS-CoV-2 in a nasopharyngeal swab specimen collected from individuals suspected of COVID-19 by their healthcare provider. This test has not been Food and Drug Administration (FDA) cleared or approved. This is a modified version of an approved Emergency Use Authorization (EUA) and is in the process of review by the FDA. Once authorized by the FDA, the issued EUA will be effective until the declaration that circumstances exist justifying the authorization of the emergency use of in vitro diagnostic tests for detection and/or diagnosis of COVID-19 is terminated under Section 564(b)(2) of the Act or the EUA is revoked under Section 564(g) of the Act. Fact Sheet for Healthcare Providers: https://www.[employer]/sites/default/files/pr oduct/documents/Fact_Sheet_HC_Providers_Lyra_ SARS-CoV-2.pdf Fact Sheet for Healthcare Patients: https://www.[employer]/sites/default/files/pr oduct/documents/Fact_Sheet_Patients_Lyra_SARS -CoV-2.pdf Performing Laboratory: [place] [address] Performing Organization Address City/State/Zipcode Phone Number [address] [address] CENTER after 10/31/2019 Insurance Payer Benefit Plan / Subscriber ID Effective Dates Phone Addre ss Type Group CIGNA - MGD CIGNA [id number] 2018-Present HMO/POS CARE HMO/POS/OPEN ACCESS
--- OUTSIDE RECORDS SUMMARY | 2020-10-31 01:24 | XMS REPORT | Continuity of Care Document ---
:1970 Author Organization [facility] t Address [address] [place] [address] Care Team Providers Name Role Phone Lisbeth STEVENS, ALPA, M Attending Clinician Unavailable Ngozi Tamez MD Attending Clinician Payers Payer Name Policy Type Policy Number Effective Date Expiration Date Asha haley CIGNA - MGD [id number] 2018 [facility] CARECIGNA 00:00:00 - Medical HMO/POS/OPEN Center [id number] 2019-Presen tHMO/POS Problems This patient has no known problems. Allergies, Adverse Reactions, Alerts This patient has no known allergies or adverse reactions. Social History Social Habit Start Date Stop Date Quantity Comments Source Sex Assigned At [facility] Medications Ordered Filled Start Stop Current Ordering Indication Dosage Frequency Signature Comments Components Source Medication Medication Date Date Medication? Clinician (SIG) Name Name Atorvastati Atorvastati Yes Marco Antonio [address] [facility] Calcium n Calcium 07-15 [facility] - [facility]: [facility] Zoloft Zoloft Yes Marco Antonio Take 1/[address] 07-15 [facility] tab QD x 1 [facility] - 00:[facility]: week then [facility] 00 take 1 tab l [facility]D [facility] Xigduo XR Xigduo XR 2020- No Marco Antonio [address] [facility] 9-08 12-06 [facility] Immunizations Ordered Filled Immunization Date Status Comments Sour e Immunization Name Name PNEUMAVAX 23 PNEUMAVAX 23 2020-06-24 Completed [facility]ck es - 00:00:00 [facility] Procedures Procedure Date / Time Performed Performing Clinician Sourc e SARS-COV2/RT-PCR ([facility] 2020-05-12 08:01:00 [facility] Encounters Start End Encounter Admission Attending Care Care Encounter Source Date/Time Date/Time Type Type Clinicians Facility Department ID 2020-10-22 2020-10-22 Outpatient [facility] [id number] [facility] 2020-10-22 2020-10-22 Outpatient [facility] [id number] [facility] 2020-10-13 2020-10-13 Outpatient [facility] [id number] [facility] 2020-10-13 2020-10-13 Outpatient [facility] [id number] [facility] 2020-10-09 2020-10-09 Office BRODY Tamez [id number] 08:04:19 09:04:19 Visit Samer Gamil AMBULATOR [id number] 2020-10-08 2020-10-08 Outpatient [facility] [id number] [facility] 2020-08-12 2020-08-12 Outpatient [facility] [id number] [facility] 2020-08-08 2020-08-08 Outpatient [facility] [id number] [facility] 2020-07-15 2020-07-15 Outpatient Tay[facility] Herring [id number] 08:30:00 08:30:00 [facility] 2020-07-10 2020-07-10 Outpatient Tayler Herring [id number] 08:52:00 08:52:00 [facility] 2020-06-24 2020-06-24 Outpatient Tayler Herring [id number] 15:30:00 15:30:00 [facility] Results Test Description Test Time Test Comments Results Result Comments Source SARS-CoV2/RT-PCR ([facility]) 2020-05-12 19:10:00 Test Item Value Reference Range Interpretation Comme nts SARS-COV2/RT-PCR (test code = Positive Not Detected, Negative A A 97646-7) SARS-COV-2 PERFORMING LAB [facility] (test code = 56638-4) SHREYA (test code = SHREYA) Results are for the detection of SARS-CoV-2 RNA. The SARS-CoV-2 RNA is generally detectable [...] of the Act. Fact Sheet for Healthcare Providers:https://www.[employer]/sites/default/files/pro duct/documents/Fact_Sheet_HC _Ezmwbxqnu_Tbbu_RCZZ-JwS-5.p df Fact Sheet for Healthcare Patients:https://www.[employer]/sites/default/files/prod uct/documents/Fact_Sheet_Pat gpedk_Cyzv_HFOY-CnE-5.pdf Performing Laboratory:[facility] [place] [address] Lab Interpretation (test code Abnormal = 22831-9) [facility])2020-05-12 19:10:00 Test Item Value Reference Range Interpretation Comments SARS-COV2/RT-PCR (test code = Positive Not Detected, Negative A A [id number]) SARS-COV-2 PERFORMING LAB [facility] (test code = 2829570) Results are for the detection of SARS-CoV-2 RNA. The SARS-CoV-2 RNA is generally detectable [...] do not rule out bacterial infection or co- infection with other viruses. The agent detected may not be the definite cause of disease.The limit of detection for this assay is 800 copies/mL.This SARS CoV- 2 test is a real-time RT-PCR test intended for the qualitative detection of nucleic acid from SARS-CoV-2 in a nasopharyngeal swab specimen collected from individuals suspected of COVID-19 by their healthcare provider.This test has not been Food and Drug [...] is revoked under Section 564(g) of the Act.Fact Sheet for Healthcare Providers:https://www.[employer]/sites/default/files/product/d ocuments/Vehy_Htigj_MB_Dkmhxvuvt_Tcbe_LQJU-QyG-5.pdfFact Sheet for Healthcare Patients:https://www.[employer]/sites/default/files/product/documents/Fact_Sheet_Patients_Lyra_SARS-CoV -2.pdfPerforming Laboratory:[facility] [place] [address]
[2020-10-31] MEDS ORDERED: ACETAMINOPHEN 500 MG TAB ONE (02:01)
--- NOTE | 2020-10-31 03:15 | ER ---
Nurse's Notes [facility] Name: Ailin Dickson Age: 50 yrs Sex: Female : 1970 Arrival Date: 10/31/2020 Time: : Bed 5 Private MD: Diagnosis: Fever, unspecified-Post COVID Vaccination Presentation: 10/31 01:25 Chief complaint: Patient states: Recently received the COVID 19 vaccine, reports having sg body aches, fever and chills. states feels worse than when diagnosed postive with COVID, no other symptoms reported for triage at this time. Coronavirus screen: chills, fever, muscle pain, Client presents with at least one sign or symptom that may indicate coronavirus-19. Standard/surgical mask placed on the client. Provider contacted for isolation considerations. Staff notified of need for isolation. Ebola Screen: Patient negative for fever greater than or equal to 101.5 degrees Fahrenheit, and additional compatible Ebola Virus Disease symptoms Patient denies exposure to infectious person. Patient denies travel to an Ebola-affected area in the 21 days before illness onset. No symptoms or risks identified at this time. Risk Assessment: Do you want to hurt yourself or someone else? Patient reports no desire to harm self or others. Onset of symptoms was October 31, 2020. Care prior to arrival: None. Transition of care: patient was not received from another setting of care. 01:25 Acuity: MADDI 3 sg 01:25 Method Of Arrival: Ambulatory sg 01:30 Note Vaccine administered Tuesday10/29/2020 at 1730, reports fever onset 10/30/2020. sg 01:33 Initial Sepsis Screen: Does the patient meet any 2 criteria? HR > 90 bpm. Does the patient have a suspected source of infection? Yes: Other: fever. AMMONIA DISTILLER: 01:35 LMP 08/2020 Historical: - Allergies: 01:27 No Known Allergies; sg - PMHx: 01:37 None; sg - PSHx: 01:27 Cholecystectomy; Appendectomy; ; sg - Immunization history:: Adult Immunizations up to date. - Social history:: Smoking status: Patient denies any tobacco usage or history of. - Coronavirus screen:: The patient has NOT traveled to [place] in the past 14 days. Screenin:34 Abuse screen: Denies threats or abuse. Denies injuries from another. Nutritional screening: No deficits noted. Tuberculosis screening: No symptoms or risk factors identified. Fall Risk None identified. Assessment: 01:36 General: Appears in no apparent distress. Behavior is calm, cooperative, appropriate wh for age. Pain: Denies pain. Neuro: Level of Consciousness is awake, alert, obeys commands, Oriented to person, place, time, situation, Appropriate for age. Neuro: Reports general malaise and body aches. Cardiovascular: Capillary refill < 3 seconds. Respiratory: Airway is patent Respiratory effort is even, unlabored, Respiratory pattern is regular, symmetrical. GI: Abdomen is non-distended. : No signs and/or symptoms were reported regarding the genitourinary system. EENT: No signs and/or symptoms were reported regarding the EENT system. Derm: Skin is intact, is healthy with good turgor, Skin is pink, warm \T\ dry. normal. Musculoskeletal: Circulation, motion, and sensation intact. 03:00 Reassessment: Patient appears in no apparent distress at this time. No changes from previously documented assessment. Patient and/or family updated on plan of care and expected duration. Pain level reassessed. Patient is alert, oriented x 3, equal unlabored respirations, skin warm/dry/pink. Vital Signs: 01:33 BP 128 / 77; Pulse 99; Resp 18; Temp 100.4; wh 01:36 Weight 113.4 kg; Height 5 ft. 6 in. (167.64 cm); wh 03:00 BP 118 / 81; Pulse 95; Resp 18; Temp 99.1; Pulse Ox 99% on R/A; wh 01:36 Body Mass Index 40.35 (113.40 kg, 167.64 cm) ED Course: 01:23 Patient arrived in ED. cl3 01:26 Lul Mendoza MD is Attending Physician. mh7 01:26 Triage completed. sg 01:27 Arm band placed on. sg 01:33 Lucero Ham is Primary Nurse. wh 01:37 Patient has correct armband on for positive identification. Placed in gown. Bed in low wh position. Call light in reach. Side rails up X 1. Pulse ox on. NIBP on. 03:32 No provider procedures requiring assistance completed. Patient did not have IV access wh during this emergency room visit. Administered Medications: 01:52 Drug: Tylenol 1000 mg Route: PO; 03:33 Follow up: Response: No adverse reaction; Temperature is decreased Outcome: 03:15 Discharge ordered by mh7 03:32 Discharged to home ambulatory. 03:32 Condition: stable 03:32 Discharge instructions given to patient, Instructed on discharge instructions, follow up and referral plans. POC Demonstrated understanding of instructions, follow-up care, POC 03:33 Patient left the ED. Signatures: Julián Lomeli RN RN sg Habalo, Winsy Christiana Hein cl3 Lul Mendoza MD MD mh7
--- NOTE | 2020-10-31 03:16 | EDPHYS ---
Physician Documentation [facility] Name: Ailin Dickson Age: 50 yrs Sex: Female : 1970 Arrival Date: 10/31/2020 Time: :23 Bed 5 Private MD: ED Physician Lul Mendoza HPI: 10/31 01:42 This 50 yrs old Female presents to ER via Ambulatory with complaints of mh7 Fever, Chills. 01:42 The patient reports fever, that was measured at 101.6 degrees Fahrenheit. Onset: The mh7 symptoms/episode began/occurred yesterday. Modifying factors: Recent medications: Other Covid vaccine. Associated signs and symptoms: Pertinent positives: Pertinent negatives: abdominal pain, altered mental status, arthralgias, backache, chest pain, cough, diarrhea, earache, nausea, night sweats, runny nose, sinus congestion, sinus drainage, skin rash, shortness of breath, sore throat, swelling, vomiting. 01:44 Associated signs and symptoms: Pertinent positives: chills, myalgias. Severity of mh7 symptoms: At their worst the symptoms were moderate yesterday, in the emergency department the symptoms are unchanged. 01:50 Patient received Covid vaccination 2 days ago then started having intermittent fever, mh7 body aches approximately 12 hours later.. TOP SCREW: 01:35 LMP 08/2020 wh Historical: - Allergies: 01:27 No Known Allergies; sg - PMHx: 01:37 None; sg - PSHx: 01:27 Cholecystectomy; Appendectomy; ; sg - Immunization history:: Adult Immunizations up to date. - Social history:: Smoking status: Patient denies any tobacco usage or history of. - Coronavirus screen:: The patient has NOT traveled to [place] in the past 14 days. ROS: 01:44 Eyes: Negative for injury, pain, redness, and discharge, ENT: Negative for injury, mh7 pain, and discharge, Neck: Negative for injury, pain, and swelling, Cardiovascular: Negative for chest pain, palpitations, and edema, Respiratory: Negative for shortness of breath, cough, wheezing, and pleuritic chest pain, Abdomen/GI: Negative for abdominal pain, nausea, vomiting, diarrhea, and constipation, Back: Negative for injury and pain, : Negative for injury, bleeding, discharge, and swelling, MS/Extremity: Negative for injury and deformity, Skin: Negative for injury, rash, and discoloration, Neuro: Negative for headache, weakness, numbness, tingling, and seizure, Psych: Negative for depression, anxiety, suicide ideation, homicidal ideation, and hallucinations, Allergy/Immunology: Negative for hives, rash, and allergies, Endocrine: Negative for neck swelling, polydipsia, polyuria, polyphagia, and marked weight changes, Hematologic/Lymphatic: Negative for swollen nodes, abnormal bleeding, and unusual bruising. Exam: 01:44 Constitutional: This is a well developed, well nourished patient who is awake, alert, mh7 and in no acute distress. Head/Face: Normocephalic, atraumatic. Eyes: Pupils equal round and reactive to light, extra-ocular motions intact. Lids and lashes normal. Conjunctiva and sclera are non-icteric and not injected. Cornea within normal limits. Periorbital areas with no swelling, redness, or edema. Neck: Trachea midline, no thyromegaly or masses palpated, and no cervical lymphadenopathy. Supple, full range of motion without nuchal rigidity, or vertebral point tenderness. No Meningismus. Chest/axilla: Normal chest wall appearance and motion. Nontender with no deformity. No lesions are appreciated. Cardiovascular: Regular rate and rhythm with a normal S1 and S2. No gallops, murmurs, or rubs. Normal PMI, no JVD. No pulse deficits. Respiratory: Lungs have equal breath sounds bilaterally, clear to auscultation and percussion. No rales, rhonchi or wheezes noted. No increased work of breathing, no retractions or nasal flaring. Abdomen/GI: Soft, non-tender, with normal bowel sounds. No distension or tympany. No guarding or rebound. No evidence of tenderness throughout. Back: No spinal tenderness. No costovertebral tenderness. Full range of motion. Skin: Warm, dry with normal turgor. Normal color with no rashes, no lesions, and no evidence of cellulitis. MS/ Extremity: Pulses equal, no cyanosis. Neurovascular intact. Full, normal range of motion. Neuro: Awake and alert, GCS 15, oriented to person, place, time, and situation. Cranial nerves II-XII grossly intact. Motor strength 5/5 in all extremities. Sensory grossly intact. Cerebellar exam normal. Normal gait. Psych: Awake, alert, with orientation to person, place and time. Behavior, mood, and affect are within normal limits. Vital Signs: 01:33 BP 128 / 77; Pulse 99; Resp 18; Temp 100.4; 01:36 Weight 113.4 kg; Height 5 ft. 6 in. (167.64 cm); 03:00 BP 118 / 81; Pulse 95; Resp 18; Temp 99.1; Pulse Ox 99% on R/A; 01:36 Body Mass Index 40.35 (113.40 kg, 167.64 cm) MDM: 03:12 Differential diagnosis: viral Infection, bacterial infection, Post vaccination [facility] reaction. Data reviewed: vital signs, nurses notes, lab test result(s), Flu: negative COVID-Negative. Counseling: I had a detailed discussion with the patient and/or guardian regarding: the historical points, exam findings, and any diagnostic results supporting the discharge/admit diagnosis, lab results, the need for outpatient follow up, to return to the emergency department if symptoms worsen or persist or if there are any questions or concerns that arise at home. Response to treatment: the patient's symptoms have markedly improved after treatment. 03:15 Patient medically screened. [facility] 10/31 01:49 Order name: Flu; Complete Time: 02:52 10/31 03:07 Order name: SARS-COV-2 RT PCR; Complete Time: 03:11 EDDE Administered Medications: 01:52 Drug: Tylenol 1000 mg Route: PO; 03:33 Follow up: Response: No adverse reaction; Temperature is decreased Disposition: 10/31/20 03:15 Discharged to Home. Impression: Fever, unspecified - Post COVID Vaccination. - Condition is Stable. - Discharge Instructions: Fever, Adult, [id number]. - Medication Reconciliation Form, Thank You Letter, Antibiotic Education, Prescription Opioid Use form. - Follow up: Private Physician; When: 1 - 2 days; Reason: Worsening of condition, Recheck today's complaints, Continuance of care, Re-evaluation by your physician. - Problem is new. - Symptoms have improved. Signatures: Dispatcher [employer] EDMS Julián Lomeli RN RN sg Habalo, Winsy Lul Mendoza MD MD [facility] Corrections: (The following items were deleted from the chart) 02:19 01:41 CORONAVIRUS+MR.LAB.BRZ ordered. EDMS EDMS 03:33 03:15 10/31/2020 03:15 Discharged to Home. Impression: Fever, unspecified - Post COVID wh Vaccination. Condition is Stable. Forms are Medication Reconciliation Form, Thank You Letter, Antibiotic Education, Prescription Opioid Use. Follow up: Private Physician; When: 1 - 2 days; Reason: Worsening of condition, Recheck today's complaints, Continuance of care, Re-evaluation by your physician. Problem is new. Symptoms have improved. mh7
[2020-10-31 04:07] VITALS: BP 118/81; TEMP 99.1; O2SAT 99
== END 2020-10-31 03:33 | disposition home or self-care (01) ==
LOC: ER 01:21
DX: R50.83 Postvaccination fever (principal); T50.Z95A Adverse effect of other vaccines and biological substances, initial encounter; Z20.828 Contact with and (suspected) exposure to other viral communicable diseases
CPT/HCPCS: 87804 ×2; 99283; U0003

== ENCOUNTER 2021-09-02 07:36 | Day surgery (SDC) | payer OTHER ==
[2021-09-02 08:10] LABS: Specific Gravity 1.015 (1.005-1.030)
[2021-09-02] MEDS ORDERED: Ringers Lactate 1,000 ML IV ONE (08:49)
[2021-09-02] MEDS ORDERED: NALOXONE 0.4 MG/ML VIAL ONE (08:58)
[2021-09-02] MEDS ORDERED: MIDAZOLAM HCL 2 MG/2 ML INJ ONE (08:58)
[2021-09-02] MEDS ORDERED: FENTANYL CITR 100 MCG/2 ML ONE (08:59)
[2021-09-02 09:50] VITALS: BMI 37.8
--- NOTE | 2021-09-02 10:04 | RAD REPORT ---
EXAM DESCRIPTION: US - Liver Biopsy Procedure - 09/02/2021 9:38 am CLINICAL HISTORY: N COMPARISON: No comparisons FINDINGS: Preoperative diagnosis: Liver masses. Post operative diagnosis: Same. Conscious Sedation: 4 milligram Versed, 50 microgram fentanyl Fluoroscopy time: None Contrast used: None Estimated blood loss: Minimal Specimens:2 x 18 gauge core samples The right upper abdomen was prepped and draped in the usual sterile fashion. 1% lidocaine was infiltr ated into the subcutaneous tissues for local anesthesia. Real time ultrasound scanning of the liver d emonstrated the suspicious liver masses in the right hepatic lobe. Under ultrasound guidance, using a 18-gauge, 2 cm throw core biopsy gun, 2 specimens were obtained of this lesion and sent to pathology for evaluation. There were no complications. IMPRESSION: Technically successful ultrasound-guided core biopsy of a suspicious mass in the right h epatic lobe. No immediate complications.
[2021-09-02 13:52] VITALS: BP 106/59; TEMP 97.6; O2SAT 100
== END 2021-09-02 12:40 | disposition home or self-care (01) ==
LOC: DS 07:36
PROVIDERS: ATTEND Internal Medicine Medical Oncology
DX: C78.7 Secondary malignant neoplasm of liver and intrahepatic bile duct (principal)
CPT/HCPCS: 81025; 88307; 47000; J2250; J3010; J7120; J2310

== ENCOUNTER 2021-09-21 08:28 | Day surgery (SDC) | payer OTHER ==
[2021-09-21 08:43] LABS: Absolute Lymphocytes (CBC) 2.1 K/uL (0.7-4.9); Basophils % 0.7 % (0-1.3); Hematocrit 31.9 % (36.0-45.0); Lymphocytes % 19.5 % (15.3-44.8); MPV 6.5 fL (7.6-11.3); RBC Red Blood Cell Count 4.17 M/uL (3.86-4.86)
[2021-09-21] MEDS ORDERED: CEFAZOLIN/NS 1gm 1 GM/50 ML BAG ONE (09:06)
[2021-09-21] MEDS ORDERED: NA CHLORIDE 0.9% 1,000 ML ONE ×2 (09:06→11:46)
[2021-09-21] MEDS ORDERED: NS 0.9% VIAL 20 ML ONE (10:09)
[2021-09-21] MEDS ORDERED: CELECOXIB 100 MG CAPSULE ONE (10:16)
[2021-09-21] MEDS ORDERED: ACETAMINOPHEN 500 MG TAB ONE (10:17)
[2021-09-21] MEDS ORDERED: propofoL 200 MG/20 ML VIAL IV ONE (10:20)
[2021-09-21] MEDS ORDERED: KETOROLAC 30 MG/ML INJ ONE (10:20)
[2021-09-21] MEDS ORDERED: MIDAZOLAM HCL 2 MG/2 ML INJ ONE (10:20)
[2021-09-21] MEDS ORDERED: FENTANYL CITR 100 MCG/2 ML ONE (10:20)
[2021-09-21] MEDS ORDERED: ONDANSETRON 4 MG/2 ML VIAL ONE (10:20)
[2021-09-21] MEDS ORDERED: dexAMETHasone 10 MG/ML VIAL ONE (10:20)
[2021-09-21] MEDS ORDERED: LIDOCAINE 1% MPF 30 ML VIAL ONE (10:21)
[2021-09-21] MEDS: LIDOCAINE 1% MPF 30 ML VIAL ONE ×2 (10:25→10:56)
[2021-09-21] MEDS: HEPARIN 5000 UNIT/ML 1 ML VIAL ONE ×4 (10:28→11:13)
[2021-09-21] MEDS ORDERED: Mastisol Adhesive Liq ONE (11:15)
--- NOTE | 2021-09-21 11:59 | RAD REPORT ---
EXAM DESCRIPTION: RAD - Chest Single View - 09/21/2021 11:52 am CLINICAL HISTORY: S/P PORT A CATH PLACEMENT COMPARISON: Chest Single View dated 05/12/2020; CHEST PA AND LAT 2 VIEW dated 05/27/2012; CHEST SINGLE VIEW dated 08/18/2010 FINDINGS: Lines: Right IJ approach Port-A-Cath with tip overlying the distal right brachiocephalic v ein. Lungs: No evidence of edema or pneumonia. Pleural: No significant pleural effusions or pneumothorax. Cardiac: The heart size is within normal limits. Bones: No acute fractures. Other: IMPRESSION: Interval placement of a right IJ approach Port-A-Cath. No pneumothorax or acute findings identified.
--- NOTE | 2021-09-21 12:22 | OP ---
Date of Procedure: 09/21/2021 Surgeon: Tee Bojorquez MD [employer] Merchandising Associate: None. Preoperative Diagnosis: Rectal cancer. Postoperative Diagnosis: Rectal cancer. Procedure: Placement of right IJ Port-A-Cath and interpretation of intraoperative fluoroscopy. Estimated Blood Loss: Minimal. Specimen: None. Findings: Normal anatomy. Anesthesia: General. Complications: None. Disposition: The patient tolerated the procedure in stable condition and taken to Recovery in good g eneral condition. Procedure In Detail: The patient was brought to the OR and placed in supine position. General anest hesia begun. The patient was prepped and draped in the usual sterile fashion. Lidocaine 1% with bic arb was infiltrated locally. An 18-gauge needle was used to access the right IJ vein. Guidewire was passed. Position was confirmed with fluoroscopy and then a 3 cm counter incision was made on the [facility] anterior chest with pocket created and then tunneling device was used to tunnel the catheter betw een the 2 wounds and Seldinger technique used. Tip of the catheter placed in the SVC under fluorosco py. Catheter flushed with heparin and packed with heparin with good blood flow and attached to the P ort-A-Cath device. Port-A-Cath device attached to the subcutaneous tissue with 3-0 Vicryl. Port-A-C ath device flushed with heparin and packed with heparin with good blood flow and then 3-0 chromic use d to approximate the subcutaneous tissue and close the skin. Sterile dressing applied. The patient was awakened and taken to Recovery in good general condition. Chest x-ray has been ordered. If nega tive, the patient will be discharged to home. Disposition: Home. Condition: Stable. Discharge Instructions: Resume home medications and diet. Activity as tolerated. No heavy lifting. Remove outer dressing in 2 days. Shower. Keep wound clean and dry. Keep Steri-Strips on at all t imes. Follow up in cancer center later this week. Follow up in my office in 2 weeks. Call for appo intment sooner. /MODL Voice ID: [id number] Report ID: [id number]
[2021-09-21] MEDS ORDERED: CODEINE 30MG/APAP 300MG TAB ONE (12:23)
[2021-09-21 13:03] VITALS: BP 98/50; TEMP 97.5; O2SAT 96
--- NOTE | 2021-09-22 10:15 | RAD REPORT ---
EXAM DESCRIPTION: RAD - Fluoroscopy <1 Hour - 09/21/2021 11:22 am CLINICAL HISTORY: PORT A CATH PLACEMENT COMPARISON: No comparisons FINDINGS/IMPRESSION: Five intraoperative fluoroscopic images submitted demonstrating placement of a Port-A-Cath. The tip is difficult to visualize on the last image due to motion. It likely overlies th e SVC. Fluoro time: 0.3 minute
== END 2021-09-21 13:01 | disposition home or self-care (01) ==
LOC: OR 08:28
PROVIDERS: ATTEND Surgery
PROC: 05HM33Z Insertion of Infusion Device into Right Internal Jugular Vein, Percutaneous Approach (ICD-10-PCS; principal; 2021-09-21 10:45)
DX: C20 Malignant neoplasm of rectum (principal); Z20.822 Contact with and (suspected) exposure to COVID-19
CPT/HCPCS: 85025; 36415; 84703; 82947 ×2; 71045; 76000; 36561; U0003; J2704; J1644 ×2; J2250; J3010; J1100; J0690; J7030 ×2; J2405; C1788

== ENCOUNTER 2021-09-23 12:18 | Emergency (ER) | payer OTHER ==
--- OUTSIDE RECORDS SUMMARY | 2021-09-23 12:23 | XMS REPORT | Continuity of Care Document ---
:1970 Author Organization [facility] t Address [address] [place] [address] [address] [place] [address] Care Team Providers Name Role Phone NGOZI TAMEZ Attending Clinician Unavailable NGOZI TAMEZ Attending Clinician Unavailable Ngozi Tamez MD Attending Clinician Kiley PALENCIA Attending Clinician KILEY Attending Clinician Unavailable NGOZI TAMEZ Admitting Clinician Unavailable Payers Payer Name Policy Type Policy Number Effective Date Expiration Date Asha haley NAOMIE [id number] 2018 00:00:00 HMO/POS/OPEN ACCESS OPEN ACCESS [id number] HMO/POS/EPO/PPO - AETNA [facility] OPEN [id number] ACCESS - CIGNA CVCP-AETNA [id number] AETNA [facility] [id number] 2020 00:00:00 ACCESS Problems This patient has no known problems. Allergies, Adverse Reactions, Alerts Allergy Allergy Status Severity Reaction(s) Onset Inactive Treating Comm ents Source Name Type Date Date Clinician NO KNOWN Allergy Active [facility] ALLERGIE S Social History Social Habit Start Date Stop Date Quantity Comments Source History [facility] ge Alcohol Frequency of Medi cine History [facility] ge Alcohol Std Drinks of Med icine History [facility] ge Alcohol Binge of Medicine Exposure to Yes [facility] Kyler e SARS-CoV-2 (event) of Med icine Alcohol intake 2021-08-17 2021-08-17 Current drinker [facility] 00:00:00 00:00:00 of alcohol of Medicine (finding) Alcohol Comment 2020-10-09 2020-10-[address] [facility] [employer] 00:00:00 00:00:00 of Medicine Tobacco use and 2020-10-09 2020-10-[address] [facility] [employer] exposure 00:00:00 00:00:00 of Medicine Sex Assigned At 1970 [address] [facility] 00:00:00 00:00:00 of Medicine Smoking Status Start Date Stop Date Source Never smoker [facility] o f Medicine Medications Ordered Filled Start Stop Current Ordering Indication Dosage Frequency Signature Comments Components Source Medication Medication Date Date Medication? Clinician (SIG) Name Name Vitamin D, 2020-11 Yes 1{capsu Take 1 [facility] 0-11 le} capsule by Julien moses, 1.25 15:23: mouth of MG (06878 06 every 7 Medicin UT) CAPS days. e pantoprazol 2020- Yes 20mg Take 1 [place] song e 07-30 Tablet by Momeyer (PROTONIX) 00:00: 05:59 mouth of 20 MG 00 :00 daily for Medicin tablet 90 days. e Take everyday for 3 months pantoprazol 2020- Yes 20mg Take 1 [place] song e 07-30 Tablet by Momeyer (PROTONIX) 00:00: 05:59 mouth of 20 MG 00 :00 daily for Medicin tablet 90 days. e Take everyday for 3 months pantoprazol 2020- Yes 20mg Take 1 [place] song e 07-30 Tablet by Momeyer (PROTONIX) 00:00: 05:59 mouth of 20 MG 00 :00 daily for Medicin tablet 90 days. e Take everyday for 3 months tramadol 2020- Yes 1{tbl} Take 1 [facility] (ULTRAM) 50 07-30 Tablet by Co claudette MG tablet 00:00: 04:59 mouth of 00 :00 every 8 Medicin hours as e needed for Pain for up to 7 days. Take after surgery as needed for pain ondansetron 2020- Yes 4mg Take 1 [place] song (ZOFRAN-ODT 07-30 Tablet by Co llege ) 4 mg 00:00: 04:59 mouth of disintegrat 00 :00 every 8 Medic in ing tablet hours as e needed for Nausea for up to 7 days. Take after surgery as needed for nausea tramadol 2020- Yes 1{tbl} Take 1 [facility] (ULTRAM) 50 07-30 Tablet by Co llege MG tablet 00:00: 04:59 mouth of 00 :00 every 8 Medicin hours as e needed for Pain for up to 7 days. Take after surgery as needed for pain ondansetron 2020- Yes 4mg Take 1 [place] song (ZOFRAN-ODT 07-30 Tablet by Co llege ) 4 mg 00:00: 04:59 mouth of disintegrat 00 :00 every 8 Medic in ing tablet hours as e needed for Nausea for up to 7 days. Take after surgery as needed for nausea aprepitant 2020- Yes 40mg Take 1 [facility] (EMEND) 40 07-30 capsule by Co llege MG capsule 00:00: 04:59 mouth once of 00 :00 for 1 Medicin dose. Take e 2 hours before surgery Scopolamine 2020- Yes 1{patch Place [address] [facility] 1 MG/3DAYS 07-30 } Patch onto Co llege [id number] 00:00: 04:59 the skin of 00 :00 once for 1 Medicin dose. e Apply behind ear. Remove after 3 days- take as needed for nausea aprepitant 2020- Yes 40mg Take 1 [facility] (EMEND) 40 07-30 capsule by Co llege MG capsule 00:00: 04:59 mouth once of 00 :00 for 1 Medicin dose. Take e 2 hours before surgery Scopolamine 2020- Yes 1{patch Place 1 [facility] 1 MG/3DAYS 07-30 } Patch onto Co llege PT72 00:00: 04:59 the skin of 00 :00 once for 1 Medicin dose. e Apply behind ear. Remove after 3 days- take as needed for nausea Vitamin D, Yes [id number] TAKE 1 [facility] 6-03 CAPSULE BY Co claudette moses, 1.25 00:00: MOUTH of MG (75484 00 EVERY 7 Medicin UT) CAPS DAYS e Vitamin D, Yes [id number] TAKE [address] [facility] Ergocalcife 6-03 CAPSULE BY Co claudette moses, 1.25 00:00: MOUTH of MG (47755 00 EVERY 7 Medicin UT) CAPS DAYS e Vitamin D, Yes [id number] TAKE [address] [facility] Ergocalcife 6-03 CAPSULE BY Co llege rol, 1.25 00:00: MOUTH of MG (69161 00 EVERY 7 Medicin UT) CAPS DAYS e Vitamin D, 2020- No [id number] TAKE 1 [facility] Ergocalcife 6-03 10-11 CAPSULE BY Alfonso moses, 1.25 00:00: 00:00 MOUTH of MG (09508 00 :00 EVERY 7 Medicin UT) CAPS DAYS e atorvastati 2019-11 Yes 1{tbl} Take 1 [facility] (LIPITOR) 1-10 Tablet by Col lege 10 MG 00:00: mouth of tablet 00 daily. Medicin e XIGDUO XR 2019-11 Yes 1{tbl} Take 1 [facility] 5-1000 MG 1-10 Tablet by Colle ge TB24 00:00: mouth of 00 daily. Medicin e atorvastati 2019-11 Yes 1{tbl} Take 1 [facility] (LIPITOR) 1-10 Tablet by Col lege 10 MG 00:00: mouth of tablet 00 daily. Medicin e XIGDUO XR 2019-11 Yes 1{tbl} Take 1 [facility] 5-1000 MG 1-10 Tablet by Colle ge TB24 00:00: mouth of 00 daily. Medicin e atorvastati 2019-11 Yes 1{tbl} Take 1 [facility] (LIPITOR) 1-10 Tablet by Col lege 10 MG 00:00: mouth of tablet 00 daily. Medicin e XIGDUO XR 2019-11 Yes 1{tbl} Take 1 [facility] 5-1000 MG 1-10 Tablet by Colle ge TB24 00:00: mouth of 00 daily. Medicin e atorvastati 2019-11 Yes 1{tbl} Take 1 [facility] (LIPITOR) 1-10 Tablet by Col lege 10 MG 00:00: mouth of tablet 00 daily. Medicin e XIGDUO XR 2019-11 Yes 1{tbl} Take 1 [facility] 5-1000 MG 1-10 Tablet by Colle ge TB24 00:00: mouth of 00 daily. Medicin e atorvastati 2019-11 Yes 1{tbl} Take 1 [facility] (LIPITOR) 1-10 Tablet by Col lege 10 MG 00:00: mouth of tablet 00 daily. Medicin e XIGDUO XR 2019-11 Yes 1{tbl} Take 1 [facility] 5-1000 MG 1-10 Tablet by Colle ge TB24 00:00: mouth of 00 daily. Medicin e sertraline 2019-11 Yes 1{tbl} Take 1 [place] song (ZOLOFT) 1-09 Tablet by Colleg e 100 MG 00:00: mouth of tablet 00 daily. Medicin e sertraline 2019-11 Yes 1{tbl} Take 1 [place] song (ZOLOFT) 1-09 Tablet by Colleg e 100 MG 00:00: mouth of tablet 00 daily. Medicin e sertraline 2019-11 Yes 1{tbl} Take 1 [place] song (ZOLOFT) 1-09 Tablet by Colleg e 100 MG 00:00: mouth of tablet 00 daily. Medicin e sertraline 2019-11 Yes 1{tbl} Take 1 [place] song (ZOLOFT) 1-09 Tablet by Colleg e 100 MG 00:00: mouth of tablet 00 daily. Medicin e sertraline 2019-11 Yes 1{tbl} Take 1 [place] song (ZOLOFT) 1-09 Tablet by Colleg e 100 MG 00:00: mouth of tablet 00 daily. Medicin e Continuous 2019-11 Yes 1{strip 1 Strip [facility] Blood Gluc 0-12 } See Admin Eze ege Sensor 00:00: Instructio of (FREESTYLE 00 ns. Medicin CAROL 2 e SENSOR SYSTM) MISC Continuous 2019-11 Yes 1{strip 1 Strip [facility] Blood Gluc 0-12 } See Admin Eze ege Sensor 00:00: Instructio of (FREESTYLE 00 ns. Medicin CAROL 2 e SENSOR SYSTM) MISC Continuous 2019-11- No 1{strip [address] [facility] Blood Gluc 07-30 } See Admin Col lege Sensor 00:00: 00:00 Instructio of (FREESTYLE 00 :00 ns. Medicin CAROL 2 e SENSOR SYSTM) [facility] [place] 2019-11- No 1{strip [address] [facility] Blood Gluc 07-30 } See Admin Col lege Sensor 00:00: 00:00 Instructio of (FREESTYLE 00 :00 ns. Medicin CAROL 2 e SENSOR SYSTM) [facility] [place] Atorvastati Atorvastati Yes Marco Antonio [address] [facility] Calcium n Calcium 07-15 Lopez [facility] - 00:00: [facility] 00 [facility] Zoloft Zoloft Yes Marco Antonio Take 1/[address] 07-15 Lopez tab QD x 1 [facility] - 00:00: week then Memoria 00 take 1 tab l QD [facility] Xigduo XR Xigduo XR 2019- Marco Antonio [address] [facility] [facility] 908 12- Lopez [facility] - 00:00: 00:00 [facility] 00 :[facility] Immunizations Ordered Filled Immunization Date Status Comments [facility] e Immunization Name Name PNEUMAVAX 23 PNEUMAVAX 23 2020-06-[address] Joanna es - 00:00:00 [facility] Vital Signs Vital Name Observation Time Observation Value Comments Source HEIGHT 2021-08-04 06:30:00 167.6 cm WEIGHT 2021-08-04 06:30:00 114.76 kg HEIGHT 2021-08-03 08:40:00 167 cm WEIGHT 2021-08-03 08:40:00 102 kg Systolic blood 2021-08-17 20:11:00 115 mm[Hg] [facility] pressure Medicine Diastolic blood 2021-08-17 20:11:00 75 mm[Hg] [facility] pressure Medicine Heart rate 2021-08-17 20:11:00 65 /min [facility] Body temperature 2021-08-17 20:11:00 36.83 [facility] Body height 2021-08-17 20:11:00 167.6 cm [facility] Body weight 2021-08-17 20:11:[address] [facility] C ollege of Medicine BMI 2021-08-17 20:11:00 38.58 kg/m2 [facility] C ollege of Medicine HEIGHT 2021-08-04 06:30:00 167.6 cm WEIGHT 2021-08-04 06:30:00 114.76 kg HEIGHT 2021-08-03 08:40:00 167 cm WEIGHT 2021-08-03 08:40:00 102 kg Systolic blood 2021 17:49:00 116 mm[Hg] [facility] of pressure Medicine Diastolic blood 2021 17:49:00 79 mm[Hg] [facility] Medicine Heart rate 2021 17:49:00 82 /min [facility] ollege of [facility] Body temperature 2021 17:49:00 36.56 [facility] Body height 2021 17:49:[address] [facility] C ollege of Medicine Body weight 2021 17:49:00 114.76 kg [facility] ollege of Medicine BMI 2021 17:49:00 40.84 kg/m2 [facility] ollege of Medicine Systolic blood 2020-10-09 14:14:00 117 mm[Hg] [facility] pressure Medicine Diastolic blood 2020-10-09 14:14:00 77 mm[Hg] [facility] Medicine Heart rate 2020-10-09 14:14:00 98 /min [facility] ollege of Medicine Body temperature 2020-10-09 14:14:00 36.83 [facility] Body height 2020-10-09 14:14:[address] [facility] C ollege of Medicine Body weight 2020-10-09 14:14:[address] [facility] C ollege of Medicine BMI 2020-10-09 14:14:00 38.64 kg/m2 [facility] C ollege of Medicine Systolic blood 2020-10-09 14:14:00 117 mm[Hg] [facility] of pressure Medicine Diastolic blood 2020-10-09 14:14:00 77 mm[Hg] [facility] pressure Medicine Heart rate 2020-10-09 14:14:00 98 /min [facility] Body temperature 2020-10-09 14:14:00 36.83 [facility] Body height 2020-10-09 14:14:00 167.6 cm [facility] Body weight 2020-10-09 14:14:00 108.591 kg [facility] BMI 2020-10-09 14:14:00 38.64 kg/m2 [facility] Procedures This patient has no known procedures. Plan of Care Planned Activity Planned Date Details Comments Source Future Scheduled 2021-08-17 BMI FOLLOW UP PLAN [facility] Test 15:15:29 [code = BMI FOLLOW UP of Med icine PLAN] Future Scheduled 2021-08-17 Screening for malignant [facility] Test 15:13:47 neoplasm of colon of Medicin e (procedure) [code = 916001686] Future Scheduled 2021-08-17 Screening for malignant [facility] Test 15:13:47 neoplasm of breast of Medici ne (procedure) [code = 713182311] Future Scheduled 2021-08-17 TETANUS SHOT (ADULT) [facility] Test 15:13:47 [code = TETANUS SHOT of Medi cine (ADULT)] Future Scheduled 2021-08-17 Hepatitis C screening [facility] Test 15:13:47 (procedure) [code = of Medic ine 552131859] Future Scheduled 2021-08-17 Human immunodeficiency [facility] Test 15:13:47 virus screening of Medicine (procedure) [code = 938506727] Future Scheduled 2021-08-17 Screening for malignant [facility] Test 15:13:47 neoplasm of cervix of Medici ne (procedure) [code = 839522614] Future Scheduled 2021-08-17 FLU VACCINE > 6 MONTHS B [facility] Test 15:13:47 [code = FLU VACCINE > 6 of M edicine MONTHS] Future Scheduled 2021-08-17 ZOSTER VACCINE (1 of 2) [facility] Test 15:13:47 [code = ZOSTER VACCINE of Me dicine (1 of 2)] Future Scheduled 2021 BMI FOLLOW UP PLAN [facility] Test 12:51:47 [code = BMI FOLLOW UP of Med icine PLAN] Future Scheduled 2021 BMI FOLLOW UP PLAN [employer] Test 12:51:47 [code = BMI FOLLOW UP of Med icine PLAN] Future Scheduled 2021 Screening for malignant [facility] [employer] Test 12:49:38 neoplasm of colon of Medicin e (procedure) [code = 556660007] Future Scheduled 2021 Screening for malignant [facility] [employer] Test 12:49:38 neoplasm of breast of Medici ne (procedure) [code = 290625302] Future Scheduled 2021 TETANUS SHOT (ADULT) [place] [facility] [employer] Test 12:49:38 [code = TETANUS SHOT of Medi cine (ADULT)] Future Scheduled 2021 Hepatitis C screening [facility] [employer] Test 12:49:38 (procedure) [code = of Medic ine 181998775] Future Scheduled 2021 Human immunodeficiency [facility] [employer] Test 12:49:38 virus screening of Medicine (procedure) [code = 915317524] Future Scheduled 2021 Screening for malignant [facility] [employer] Test 12:49:38 neoplasm of cervix of Medici ne (procedure) [code = 159783186] Future Scheduled 2021 FLU VACCINE > 6 MONTHS [facility] [employer] Test 12:49:38 [code = FLU VACCINE > 6 of M edicine MONTHS] Future Scheduled 2021 ZOSTER VACCINE (1 of 2) [employer] Test 12:49:38 [code = ZOSTER VACCINE of Me dicine (1 of 2)] Future Scheduled 2021 Screening for malignant [facility] [employer] Test 12:49:38 neoplasm of colon of Medicin e (procedure) [code = 471210866] Future Scheduled 2021 Screening for malignant [facility] Test 12:49:38 neoplasm of breast of Medici ne (procedure) [code = 071980752] Future Scheduled 2021 TETANUS SHOT (ADULT) [place] [facility] [employer] Test 12:49:38 [code = TETANUS SHOT of Medi cine (ADULT)] Future Scheduled 2021 Hepatitis C screening [facility] [employer] Test 12:49:38 (procedure) [code = of Medic ine 003595903] Future Scheduled 2021 Human immunodeficiency [facility] [employer] Test 12:49:38 virus screening of Medicine (procedure) [code = 677158181] Future Scheduled 2021 Screening for malignant [facility] Test 12:49:38 neoplasm of cervix of Medici ne (procedure) [code = 596212948] Future Scheduled 2021 FLU VACCINE > 6 MONTHS [facility] [employer] Test 12:49:38 [code = FLU VACCINE > 6 of M edicine MONTHS] Future Scheduled 2021 ZOSTER VACCINE (1 of 2) [employer] Test 12:49:38 [code = ZOSTER VACCINE of Me dicine (1 of 2)] Future Scheduled 2021-07-17 Screening for malignant [facility] Test 10:50:40 neoplasm of colon of Medicin e (procedure) [code = 079792774] Future Scheduled 2021-07-17 Screening for malignant [facility] Test 10:50:40 neoplasm of breast of Medici ne (procedure) [code = 281636053] Future Scheduled 2021-07-17 TETANUS SHOT (ADULT) [place] [facility] [employer] Test 10:50:40 [code = TETANUS SHOT of Medi cine (ADULT)] Future Scheduled 2021-07-17 Hepatitis C screening [employer] [facility] [employer] Test 10:50:40 (procedure) [code = of Medic ine 151588664] Future Scheduled 2021-07-17 [facility] 10:50:40 virus screening of Medicine (procedure) [code = 850714896] Future Scheduled 2021-07-17 Screening for malignant [facility] Test 10:50:40 neoplasm of cervix of Medici ne (procedure) [code = 996654421] Future Scheduled 2021-07-17 FLU VACCINE > 6 MONTHS [facility] [employer] Test 10:50:40 [code = FLU VACCINE > 6 of M edicine MONTHS] Future Scheduled 2021-07-17 BMI FOLLOW UP PLAN [employer] Test 10:50:40 [code = BMI FOLLOW UP of Med icine PLAN] Future Scheduled PT INSTR GIVEN - Ordered: [facility] Test TOBACCO [code = NOCPT] 10/09/2020 of Me dicine Future Scheduled MAMMOGRAM ANNUAL [code [facility] = MAMMOGRAM ANNUAL] of Medic ine Future Scheduled TETANUS SHOT (ADULT) [place] [facility] Test [code = TETANUS SHOT of Medi cine (ADULT)] Future Scheduled HEPATITIS C SCREENING [employer] Test [code = HEPATITIS C of Medic ine SCREENING] Future Scheduled HIV SCREENING [code = [employer] Test HIV SCREENING] of Medicine Future Scheduled CERVICAL CANCER [facility] Test SCREENING 3 YEAR FOLLOW of M edicine UP [code = CERVICAL CANCER SCREENING 3 YEAR FOLLOW UP] Future Scheduled FLU VACCINE > 6 MONTHS [facility] Test [code = FLU VACCINE > 6 of M edicine MONTHS] Encounters Start End Encounter Admission Attending Care Care Encounter Source Date/Time Date/Time Type Type Clinicians Facility Department ID 2021-08-16 Inpatient [facility] Surgery [id number] [facility] 06:30:09 SAMER 2021-09-14 2021-09-14 [id number] 2021-09-09 2021-09-09 [facility] [id number] 2021-09-02 2021-09-02 [facility] [id number] [facility] 2021-09-01 2021-09-01 [facility] [id number] [facility] 2021-08-28 2021-08-28 [facility] [id number] [facility] 2021-08-20 2021-08-20 [facility] [id number] 2021-08-17 2021-08-17 Office JOI [facility] [id number] [facility] 14:47:06 15:14:31 Visit SAMER AMBULATOR [id number] College Y [id number] [facility] 805 e 2021-08-10 2021-08-10 [facility] [id number] [facility] 2021-08-10 2021-08-10 [facility] [id number] [facility] 2021-08-03 2021-08-03 Outpatient [facility] [id number] [facility] 00:00:00 00:00:00 2021-07-31 2021-07-31 [facility] [id number] [facility] 2021 2021 Outpatient [facility] [id number] [place] [address] 00:00:00 23:59:00 Tierrag e of Medicin e 2021 2021 Office BRODY Tamez [id number] [place] [address] 12:34:26 13:04:26 Visit Samer Gamil AMBULATOR [id number] College Y [id number] of [id number] [facility] 805 e 2021 2021 Outpatient [facility] [id number] [facility] 00:00:00 00:00:00 2021 2021 Outpatient [facility] [id number] [facility] 00:00:00 00:00:00 2021 2021 Outpatient [facility] [id number] [facility] 00:00:00 00:00:00 2021-07-17 2021-07-17 Office BRODY Webb [id number] [place] [address] 11:00:00 12:00:00 Visit Jolene AMBULATOR 350.1.13.21 College Y 0.2.7.2.686 of [id number] [facility] 810 e 2021-05-01 2021-05-01 [facility] [id number] [facility] 2021-04-13 2021-04-13 [facility] [id number] [facility] 2021-03-27 2021-03-27 Out[facility] [id number] [facility] 2021-03-04 2021-03-04 Outpatient KILEY Ghulam [facility] [id number] [facility] 09:27:48 09:43:02 JOLENE Colleg e of Medicin e 2021-02-16 2021-02-16 Outpatient KILEY [facility] [id number] [facility] 09:30:25 09:54:09 JOLENE Colleg e of Medicin e 2021-02-04 2021-02-04 Outpatient KILEY [facility] [id number] [facility] 14:40:19 14:57:28 JOLENE Colleg e of Medicin e 2021-01-27 2021-01-27 Outpatient [facility] [id number] [facility] St 00:00[facility]00 00[facility]00[facility]00 [facility] 2021-01-27 2021-01-27 Out[facility] [id number] [facility] 2021-01-24 2021-01-24 [facility] [id number] [facility] 2021-01-09 2021-01-09 [facility] [id number] [facility] 2021-01-07 2021-01-07 Outpatient KILEY [facility] [id number] [facility] 09:28:50 09:55:15 JOLENE Colleg e of Medicin e 2020-12-10 2020-12-10 Outpatient KILEY [facility] [id number] [facility] 14:28:59 14:55:01 JOLENE Colleg e of Medicin e 2020-11-13 2020-11-13 Outpatient [facility] [id number] [facility] 2020-10-22 2020-10-22 [facility] [id number] [facility] 2020-10-22 2020-10-22 [facility] [id number] [facility] 2020-10-13 2020-10-13 [facility] [id number] [facility] 2020-10-13 2020-10-13 [facility] [id number] [facility] 2020-10-09 2020-10-09 Office Joi, [place] [id number] [facility] 08:04:19 09:04:19 Visit Samer Gamil AMBULATOR [id number] College Y [id number] [facility] 800 e 2020-10-09 2020-10-09 Office Joi, [facility] [id number] 08:04:19 09:04:19 Visit Samer Gamil AMBULATOR 350.1.13.21 Y [id number] 2020-10-08 2020-10-08 [facility] [id number] [facility] 2020-08-12 2020-08-12 [facility] [id number] [facility] 2020-08-08 2020-08-08 [facility] [id number] [facility] 2020-07-15 2020-07-15 [facility] [id number] 08:30:00 08:30:00 [facility] Outpat[facility] ent Clinics 2020-07-10 2020-07-10 [id number] [facility] [address] 08:52:00 08:52:00 [facility] 2020-06-24 2020-06-24 Outpatient Tayler Lestert [id number] 15:30:00 15:30:00 [facility] Results Test Test Test Results Result Source Description Time Comments Comments TISSUE EXAM 2021-08- Surgical Pathology Report 04 Case: [id number] 17:14:04 Authorizing Provider: Alyssa Tamez MD Collected: 08/04/2021 08:32 AM Ordering Location: [facility] Received: 08/04/2021 10:02 AM SERVICES Pathologist: Lana Hui MD Specimen: Stomach, PARTIAL GASTRECTOMY STOMACH, PARTIAL GASTRECTOMY: - A PORTION OF GASTRIC BODY WITH NO SPECIFIC PATHOLOGIC CHANGES Signing Pathologist Direct Phone Line: [phone] signed by Lana Hui MD on 08/10/2021 at 5:14 PMMorbid obesity, Body mass index 40.0-44.9, adult, Low back pain, HyperlipidemiaStomachReceived in formalin labeled the patient's name, accession number and " partial gastrectomy" is a 22.5 x 4.0 x 2.5 cm unoriented portion of stomach with a 22.5 cm linear staple line. The serosa is abbott-pink, smooth and hyperemic. The specimen is opened to reveal a abbott-pink, focally erythematous mucosa that displays normal rugal folds. No discrete lesions are identified. Safety Security Officer sections are submitted in A1-A2.SARINA Ochoa, HT (ASCP) POCT-GLUCOSE METER 2021-08-05 08:05:23 Test Item Value Reference Range Interpretation Comme nts POC-GLUCOSE METER (BEAKER) 106 mg/dL 70-110 : TESTED AT [facility] [address] [facility] (test code = 1538) MORGAN Sosa, [id number]: Sock Lining Stitcher/Techni bryan ID = [id number] for JESSICA SALDANA Rc POCT-GLUCOSE [id number] 21:44:33 Test Item Value Reference Range Interpretation Comments POC-GLUCOSE METER 113 mg/dL 70-110 H : [facility] (BE[facility]ER[facility] (test code = [facility], 1538) [id number]: Sock Lining Stitcher/Techni bryan ID = [id number] for SHAHLA MCPHERSON POCT-GLUCOSE [id number] 16:59:35 Test Item Value Reference Range Interpretation Comments POC-GLUCOSE METER 151 mg/dL 70-110 H : TESTED A T [facility] 67[address] (BEAKER) (test code = [facility], 1538) [id number]: Sock Lining Stitcher/Techni bryan ID = [id number] for An toine, Peggy POCT-GLUCOSE [id number] 13:26:55 Test Item Value Reference Range Interpretation Comments POC-GLUCOSE METER 169 mg/dL 70-110 H : TESTED A T [facility] [address] (BEAKER) (test code = [facility], 1538) [id number]: Sock Lining Stitcher/Techni bryan ID = [id number] for An toine, Peggy POCT-GLUCOSE [id number] 12:17:26 Test Item Value Reference Range Interpretation Comments POC-GLUCOSE METER 161 mg/dL 70-110 H : TESTED A T [facility] [address] (BEAKER) (test code = [facility], 1538) [id number]: Sock Lining Stitcher/Techni bryan ID = [id number] for SUNG MARIE URINALYSIS W/ REFLEX URINE [id number] 08:05:03 Test Item Value Reference Range Interpretation Comments COLOR (BEAKER) (test code = 470) Yellow CLARITY (BEAKER) (test code = 469) Clear SPECIFIC GRAVITY UA (BEAKER) (test 1.022 1.001-1.035 code = 468) PH UA (BEAKER) (test code = 467) 5.5 5.0-8.0 PROTEIN UA (BEAKER) (test code = Negative Negative 464) GLUCOSE UA (BEAKER) (test code = Negative Negative 365) KETONES UA (BEAKER) (test code = 10 mg/dL Negative A 371) BILIRUBIN UA (BEAKER) (test code = Negative Negative 462) BLOOD UA (BEAKER) (test code = 461) Trace Negative A NITRITE UA (BEAKER) (test code = Negative Negative 465) LEUKOCYTE ESTERASE UA (BEAKER) Negative Negative (test code = 466) UROBILINOGEN UA (BEAKER) (test code 0.2 mg/dL 0.2-1.0 = 463) RBC UA (BEAKER) (test code = 519) < /HPF WBC UA (BEAKER) (test code = 520) 1 /HPF BACTERIA (BEAKER) (test code = 517) Rare MUCUS (BEAKER) (test code = 1574) Rare SQUAMOUS EPITHELIAL (BEAKER) (test 2 /HPF code = 516) CRYSTALS, URINE (BEAKER) (test code Rare = 1521) SOURCE(BEAKER) (test code = 2795) Sock Lining Stitcher ID - [auto]Sock Lining Stitcher ID - techSARS-COV2/RT-PCR ([facility]) 2021 23:45:05 Test Item Value Reference Range Interpretation Comments SARS-COV2/RT-PCR (test code = Negative Negative [id number]) Negative result for this test determines that SARS-CoV-2 RNA was not present in the specimen above the Limit of Detection (LOD). However, Negative results do not preclude SARS-CoV-2 infection and should not be used as the sole basis for treatment or patient management decisions. Negative results must be combined with clinical observations, patient history, and epidemiological information. A false negative result may occur if a specimen is improperly collected, transported, or handled. A false negative result should be considered if patient's recent exposures or clinical presentation indicate that COVID-19 (SARS-CoV-2) is likely and diagnostic tests for other causes of illness are negative. Re-testing should be considered in cases of suspected false negatives.The limit of detection for this assay is 100 copies/mL.This SARS-CoV-2 test is a real-time RT_PCR test intended for the qualitative detection of [...] is revoked under Section 564(g) of the Act.Testing was performedusing the Parks SARS-CoV-2 assay.Fact Sheet for Healthcare Providers:https://www.[employer].homedeco2u/kaylee/RT SARS-CoV-2 HCP Fact Sheet 51- 757516.pdfFact Sheet for Healthcare Patients:https://www.[employer].homedeco2u/kaylee/RT SARS-CoV-2 Patient Fact Sheet EN 51-380811U7.jkxDCMKHZHYWZ8144-12-40 12:32:40 Test Item Value Reference Range Interpretation Comments CREATININE (BEAKER) 0.61 mg/dL 0.57-1.25 (test code = 358) EGFR (BEAKER) (test 104 mL/min/1.73 ESTIM ATED GFR IS code = 1092) sq m NOT ACCURATE CREATININE CLEARANCE IN PREDICTING GLOMERULAR FILTRATION RATE . ESTIMATED GFR I S NOT APPLICABLE FOR DIALYSIS PATIEN TS. Sock Lining Stitcher ID - TYLOR [id number] 12:32:40 Test Item Value Reference Range Interpretation Comments GLUCOSE RANDOM (BEAKER) (test code 147 mg/dL 70-105 H = 652) Sock Lining Stitcher ID - TYLOR [id number] 12:32:39 Test Item Value Reference Range Interpretation Comments BLOOD UREA NITROGEN (BEAKER) (test 11 mg/dL 7-21 code = 354) Sock Lining Stitcher ID - TYLOR [id number] 12:32:39 Test Item Value Reference Range Interpretation Comments SODIUM (BEAKER) (test code = 381) 142 meq/L 136-145 POTASSIUM (BEAKER) (test code = 4.0 meq/L 3.5-5.1 379) CHLORIDE (BEAKER) (test code = 382) 106 meq/L 98-107 CO2 (BEAKER) (test code = 355) 27 meq/L 22-29 Sock Lining Stitcher ID - TYLOR [id number] 12:13:22 Test Item Value Reference Range Interpretation Comments HEMOGLOBIN (BEAKER) (test code = 11.8 GM/DL 11.2-15.7 410) Sock Lining Stitcher ID - [id number]-COV2/RT-PCR ([facility])2020-05-12 19:10:00 Test Item Value Reference Range Interpretation Comments SARS-COV2/RT-PCR (test code = Positive Not Detected, Negative A A [id number]) SARS-COV-2 PERFORMING LAB [facility] (test code = 9995292) Results are for the detection of SARS-CoV-2 [...] 564(g) of the Act.Fact Sheet for Healthcare Providers:https://www.quidel.com/sites/default/files/product/d ocuments/Jgtm_Kbetu_SA_Hasnznjjo_Vzlk_PBWV-DaF-8.pdfFact Sheet for Healthcare Patients:https://www.[employer] idel.com/sites/default/files/product/documents/Fact_Sheet_Patients_Lyra_SARS-CoV -2.pdfPerforming Laboratory:[facility] [place] [address]
[2021-09-23] MEDS ORDERED: ONDANSETRON 4 MG/2 ML VIAL ONE ×2 (12:55→15:22)
[2021-09-23] MEDS ORDERED: MORPHINE 4 MG/ML SYR ONE ×2 (12:55→15:22)
[2021-09-23 13:03] LABS: Absolute Lymphocytes (CBC) 2.8 K/uL (0.7-4.9); Basophils % 0.7 % (0-1.3); Hematocrit 36.3 % (36.0-45.0); Lymphocytes % 21.2 % (15.3-44.8); MPV 6.3 fL (7.6-11.3); RBC Red Blood Cell Count 4.73 M/uL (3.86-4.86)
[2021-09-23 13:19] LABS: ALT/SGPT 38 U/L (12-78); AST/SGOT 29 U/L (15-37); Albumin 2.9 g/dL (3.4-5.0); Alkaline Phosphatase 90 U/L (45-117); BUN Blood Urea Nitrogen 9 mg/dL (7-18); Bicarbonate 29 mmol/L (21-32); Bilirubin Direct 0.2 mg/dL (0-0.2); Bilirubin Total 0.6 mg/dL (0.2-1.0); Glucose Level 102 mg/dL (74-106); Lipase 66 U/L (73-393); Potassium 3.6 mmol/L (3.5-5.1); Protein, Total 8.6 g/dL (6.4-8.2); Sodium Level 141 mmol/L (136-145)
--- NOTE | 2021-09-23 15:54 | RAD REPORT ---
EXAM DESCRIPTION: CT - Abdomen Pelvis W Contrast - 09/23/2021 3:42 pm CLINICAL HISTORY: ABD PAIN COMPARISON: Abdomen Pelvis W Contrast dated 08/27/2021, generalized abdominal pain with history of liver cancer, appendectomy, cholecystectomy and gastric bypass TECHNIQUE: Biphasic, helical CT imaging of the abdomen and pelvis was performed following 100 ml non -ionic IV contrast. No oral contrast administered. All CT scans are performed using dose optimization technique as appropriate and may include automated exposure control or mA/KV adjustment according to patient size. FINDINGS: No suspicious findings in the lung bases. Liver is abnormal. Prior imaging showed an approximately 4 x 4 centimeter mass in the upper central r ight lobe segment IV/ II 8 region. That mass is substantially enlarged over short interval now measur ing 6.0 cm AP x 7.2 cm TR. Satellite lesion along the right lateral margin measures 2.1 cm in diamete r compared to 1.6 cm August 27. Additional subcapsular right lobe masses are seen laterally. These are new or enlarged. No portal vein abnormality. No hemorrhage within many of the metastatic or prim jesusita liver lesions. Spleen and pancreas show no significant finding. Gallbladder is absent. Biliary tree within normal li mits. Symmetric renal function is seen with no hydronephrosis or suspicious renal mass. No pyelonephritis o r acute parenchymal process. No bladder abnormalities. No adrenal abnormalities. Uterus and ovaries s how no suspicious findings. No dilated bowel loops or bowel wall thickening. Gastric surgical changes are present with no acute c omponent. No free air, free fluid or inflammatory stranding. No hernia, mass or bulky lymphadenopath y. No omental thickening. No suspicious bony findings. IMPRESSION: No bowel obstruction, free air or surgically emergent finding identifiable. Since the short interval August 27 study there has been substantial progression in the size of the p rimary liver mass and adjacent satellite lesions.
[2021-09-23] MEDS ORDERED: NA CHLORIDE 0.9% 1,000 ML ONE (16:10)
--- NOTE | 2021-09-23 16:15 | ER ---
Nurse's Notes [facility] Name: Ailin Dickson Age: 51 yrs Sex: Female : 1970 Arrival Date: 09/23/2021 Time: 12:23 Bed 20 Private MD: Marco Antonio Lopez Diagnosis: Malignant neoplasm of colon, unspecified-With metastases to liver Presentation: 09/23 12:23 Chief complaint: Patient states: cramping started last night. but this morning it is tw2 worse in my intestines. i am nauseous. +D. Stage 4 adenocarcinoma of the colon. recent port placed, not accessed yet. Coronavirus screen: At this time, the client does not indicate any symptoms associated with coronavirus-19. Ebola Screen: Patient denies travel to an Ebola-affected area in the 21 days before illness onset. Initial Sepsis Screen: Does the patient meet any 2 criteria? No. Patient's initial sepsis screen is negative. Does the patient have a suspected source of infection? No. Patient's initial sepsis screen is negative. Risk Assessment: Do you want to hurt yourself or someone else? Patient reports no desire to harm self or others. Onset of symptoms was September 23, 2021. 12:23 Method Of Arrival: Ambulatory tw2 12:23 Acuity: MADDI 3 tw2 Triage Assessment: 12:26 General: Appears uncomfortable, Behavior is calm, cooperative, appropriate for age. tw2 Pain: Complains of pain in abdomen. GI: Reports diarrhea, nausea. 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 - Social history:: Smoking status: Reported history of juuling and/or vaping. Patient uses alcohol, occasionally. - Family history:: not pertinent. - Hospitalizations: : No recent hospitalization is reported. Screenin:30 Abuse screen: Denies threats or abuse. Nutritional screening: No deficits noted. tw2 Tuberculosis screening: No symptoms or risk factors identified. Fall Risk None identified. Assessment: 15:28 Reassessment: Pt C/O ABD pain. Notified ERP. See MAR for orders. ld1 15:33 Reassessment: Notified ERP of low BP. See MAR for orders. ld1 Vital Signs: 12:23 BP 111 / 72; Pulse 85; Resp 17; Temp 99.4(TE); Pulse Ox 99% on R/A; Weight 99.79 kg tw2 (R); Pain 5/10; 13:00 BP 113 / 72; Pulse 80; Resp 18; Temp 99.4; Pulse Ox 95% on R/A; sl2 13:15 BP 103 / 74; Pulse 80; Resp 18; Pulse Ox 96% on R/A; sl2 15:28 BP 93 / 58; Pulse 81; Resp 18; Pulse Ox 96% on R/A; ld1 16:00 BP 102 / 64; Pulse 80; Resp 18; Temp 98.9; Pulse Ox 100% on R/A; sl2 17:00 BP 110 / 63; Pulse 88; Resp 18; Temp 98.8; Pulse Ox 99% ; sl2 ED Course: 12:23 Patient arrived in ED. am2 12:23 Marco Antonio Lopez DO is Private Physician. am2 12:24 [facility]-C [facility] kb 12:24 Jhon Low MD is Attending Physician. kb 12:25 Triage completed. tw2 12:26 Arm band placed on. tw2 12:27 Warm blanket given. tw2 12:31 Bed in low position. Call light in reach. Adult w/ patient. tw2 12:54 Nancy Child, MIREILLE is Primary Nurse. sl2 13:55 No provider procedures requiring assistance completed. Inserted saline lock: 20 gauge sl2 in left antecubital area, using aseptic technique. Blood collected. 15:42 CT Abd/Pelvis - PO and IV Contrast In Process Unspecified. EDMS 17:33 IV discontinued, intact, bleeding controlled, No redness/swelling at site. Pressure sl2 dressing applied. Administered Medications: 13:04 Drug: Zofran (Ondansetron) 4 mg Route: IVP; Site: left antecubital; kd3 17:00 Follow up: Response: No adverse reaction sl2 13:04 Drug: morphine 4 mg Route: IVP; Site: left antecubital; kd3 17:00 Follow up: Response: No adverse reaction sl2 15:28 Drug: Zofran (Ondansetron) 4 mg Route: IVP; Site: left antecubital; ld1 15:28 Follow up: Response: No adverse reaction ld1 15:28 Drug: morphine 4 mg Route: IVP; Site: left antecubital; ld1 15:28 Follow up: Response: No adverse reaction ld1 16:13 Drug: NS 0.9% 1000 ml Route: IV; Rate: 1000 ml; Site: left antecubital; ld1 17:30 Follow up: IV Status: Completed infusion; IV Intake: 1000ml sl2 17:42 Follow up: Response: No adverse reaction sl2 Intake: 17:30 IV: 1000ml; Total: 1000ml. sl2 Outcome: 16:14 Discharge ordered by . rn 17:32 Discharged to home with family. sl2 17:32 Condition: stable 17:32 Discharge instructions given to patient, family, Instructed on discharge instructions, follow up and referral plans. Demonstrated understanding of instructions, follow-up care. 17:40 Patient left the ED. sl2 Signatures: Dispatcher [employer] EDMS Wendy Stewart, PLASTIC STRAIGHTENING ROLL OPERATOR-C PLASTIC STRAIGHTENING ROLL OPERATOR-Ckb Jhon Low MD MD rn Wise, Tara, RN RN tw2 Arlen Rosario amDilma Mayers RN RN ld1 Nancy Child RN RN sl2 Maribel Salazar RN RN kd3 Corrections: (The following items were deleted from the chart) 12:30 12:23 Chief complaint: Patient states: cramping started last night. but this morning it tw2 is worse in my intestines. i am nauseous. +D. Stage 4 tw2
--- NOTE | 2021-09-23 16:15 | EDPHYS ---
Physician Documentation [facility] Name: Ailin Dickson Age: 51 yrs Sex: Female : 1970 Arrival Date: 09/23/2021 Time: 12:23 Bed 20 Private MD: Marco Antonio Lopez ED Physician Jhon Low HPI: 09/23 12:46 This 51 yrs old Female presents to ER via Ambulatory with complaints of rn Abdominal Pain. 12:46 The patient presents with abdominal pain in the upper abdomen. Onset: The rn symptoms/episode began/occurred yesterday. The symptoms do not radiate. Associated signs and symptoms: Pertinent positives: anorexia, nausea, Pertinent negatives: blood in stools, fever, shortness of breath. The symptoms are described as crampy, intermittent. Modifying factors: The symptoms are alleviated by nothing, the symptoms are aggravated by nothing. Severity of pain: At its worst the pain was moderate in the emergency department the pain is unchanged. The patient has not experienced similar symptoms in the past. The patient has been recently seen by a physician:. SocialPatient with recent diagnosis of colon cancer with metastases to the liver. Sees Dr. Dr. Patino is initiating chemotherapy but has not started yet. Last night began with upper abdominal pain. With nausea. Pain is intermittent and comes every 30 to 45 minutes. No fever/cough/shortness of breath. States has bowel movements every few days but when does is loose but no blood.. 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 - Social history:: Smoking status: Reported history of juuling and/or vaping. Patient uses alcohol, occasionally. - Family history:: not pertinent. - Hospitalizations: : No recent hospitalization is reported. ROS: 12:46 Constitutional: Negative for fever, chills, and weight loss, Eyes: Negative for injury, rn pain, redness, and discharge, Cardiovascular: Negative for chest pain, palpitations, and edema, Respiratory: Negative for shortness of breath, cough, wheezing, and pleuritic chest pain, Abdomen/GI: Negative for vomiting Back: Negative for injury and pain, MS/Extremity: Negative for injury and deformity, Skin: Negative for injury, rash, and discoloration, Neuro: Negative for headache, weakness, numbness, tingling, and seizure. 12:46 All other systems are negative. Exam: 12:46 Constitutional: This is a well developed, well nourished patient who is awake, alert, rn and in no acute distress. Head/Face: Normocephalic, atraumatic. Eyes: Periorbital areas with no swelling, redness, or edema. Cardiovascular: Regular rate and rhythm. No pulse deficits. Respiratory: No increased work of breathing, no retractions or nasal flaring. Abdomen/GI: Soft, mild epigastric and periumbilical tenderness. No rebound. No distention. Skin: Warm, dry MS/ Extremity: Pulses equal, no cyanosis. Neuro: Awake and alert, GCS 15 Vital Signs: 12:23 BP 111 / 72; Pulse 85; Resp 17; Temp 99.4(TE); Pulse Ox 99% on R/A; Weight 99.79 kg tw2 (R); Pain 5/10; 13:00 BP 113 / 72; Pulse 80; Resp 18; Temp 99.4; Pulse Ox 95% on R/A; sl2 13:15 BP 103 / 74; Pulse 80; Resp 18; Pulse Ox 96% on R/A; sl2 15:28 BP 93 / 58; Pulse 81; Resp 18; Pulse Ox 96% on R/A; ld1 16:00 BP 102 / 64; Pulse 80; Resp 18; Temp 98.9; Pulse Ox 100% on R/A; sl2 17:00 BP 110 / 63; Pulse 88; Resp 18; Temp 98.8; Pulse Ox 99% ; sl2 MDM: 12:28 Patient medically screened. kb 16:09 Differential diagnosis: bowel obstruction, non-specific abd pain, pancreatitis, rn worsening cancer, lymphadenopathy, enteritis. Data reviewed: vital signs, nurses notes, lab test result(s), radiologic studies, CT scan, and as a result, I will discharge patient. Counseling: I had a detailed discussion with the patient and/or guardian regarding: the historical points, exam findings, and any diagnostic results supporting the discharge/admit diagnosis, lab results, radiology results, the need for outpatient follow up, to return to the emergency department if symptoms worsen or persist or if there are any questions or concerns that arise at home. Response to treatment: the patient's symptoms have markedly improved after treatment, and as a result, I will discharge patient. Special discussion: I discussed with the patient/guardian in detail that at this point there is no indication for admission to the hospital. It is understood, however, that if the symptoms persist or worsen the patient needs to return immediately for re-evaluation. Based on the history and exam findings, there is no indication for further emergent testing or inpatient evaluation. I discussed with the patient/guardian the need to see the medicare contact specialist/oncologist for further evaluation of the symptoms. ED course: CT without any acute findings. Actually shows progression of known masses and lymphadenopathy even from 3 weeks ago. Patient just had her port placed for chemo and has chemo scheduled this week. She is going to talk to her oncologist as soon as she is discharged today. Pain controlled and feels much better.. 09/23 12:38 Order name: Basic Metabolic Panel; Complete Time: 13:32 rn 09/23 12:38 Order name: CBC with Diff; Complete Time: 13:32 rn 09/23 12:38 Order name: Hepatic Function; Complete Time: 13:32 rn 09/23 12:38 Order name: Lipase; Complete Time: 13:32 rn 09/23 12:38 Order name: CT Abd/Pelvis - PO and IV Contrast; Complete Time: 15:57 rn 09/23 12:38 Order name: IV Saline Lock; Complete Time: 13:04 rn 09/23 12:38 Order name: Labs collected and sent; Complete Time: 13:04 rn Administered Medications: 13:04 Drug: Zofran (Ondansetron) 4 mg Route: IVP; Site: left antecubital; kd3 17:00 Follow up: Response: No adverse reaction sl2 13:04 Drug: morphine 4 mg Route: IVP; Site: left antecubital; kd3 17:00 Follow up: Response: No adverse reaction sl2 15:28 Drug: Zofran (Ondansetron) 4 mg Route: IVP; Site: left antecubital; ld1 15:28 Follow up: Response: No adverse reaction ld1 15:28 Drug: morphine 4 mg Route: IVP; Site: left antecubital; ld1 15:28 Follow up: Response: No adverse reaction ld1 16:13 Drug: NS 0.9% 1000 ml Route: IV; Rate: 1000 ml; Site: left antecubital; ld1 17:30 Follow up: IV Status: Completed infusion; IV Intake: 1000ml sl2 17:42 Follow up: Response: No adverse reaction sl2 Disposition Summary: 09/23/21 16:14 Discharge Ordered Location: Home rn Problem: an ongoing problem rn Symptoms: have worsened rn Condition: Stable rn Diagnosis - Malignant neoplasm of colon, unspecified - With metastases to liver rn Followup: rn - With: Private Physician - When: 1 - 2 days - Reason: Recheck today's complaints, Re-evaluation by your physician Discharge Instructions: - Discharge Summary Sheet rn - Chemotherapy rn - Colorectal Cancer rn Forms: - Medication Reconciliation Form rn - Thank You Letter rn - Antibiotic internal security manager - Prescription Opioid Use rn Signatures: Dispatcher [employer] EDWendy Choudhary, SOCIAL MEDIA MARKETING ANALYST-C SOCIAL MEDIA MARKETING ANALYST-Ckb Jhon Low MD MD rn Wise, Tara, RN RN tw2 Dilma Prince RN RN ld1 Maribel Salazar RN RN kd3 Nancy Child RN sl2
[2021-09-23 18:35] VITALS: BP 110/63; TEMP 98.8; O2SAT 99
== END 2021-09-23 17:40 | disposition home or self-care (01) ==
LOC: ER 12:18
DX: C18.9 Malignant neoplasm of colon, unspecified (principal); C78.7 Secondary malignant neoplasm of liver and intrahepatic bile duct; E11.9 Type 2 diabetes mellitus without complications
CPT/HCPCS: 85025; 80048; 36415; 80076; 83690; 74177; Q9967; J7030; J2405 ×2

== ENCOUNTER 2021-09-24 17:09 | Emergency (ER) | payer OTHER ==
--- OUTSIDE RECORDS SUMMARY | 2021-09-24 17:13 | XMS REPORT | Continuity of Care Document ---
:1970 Author Organization [facility] t Address [address] Jean Baptiste. [address] [place] [address] Care Team Providers Name Role Phone NGOZI TAMEZ Attending Clinician Unavailable LEFDESIREE Attending Clinician Unavailable NGOZI TAMEZ Attending Clinician Unavailable Ngozi Tamez MD Attending Clinician Kiley PALENCIA Attending Clinician KILEY Attending Clinician Unavailable NGOZI TAMEZ Admitting Clinician Unavailable Payers Payer Name Policy Type Policy Number Effective Date Expiration Date Asha haley NAOMIE [id number] 2018 00:00:00 HMO/POS/OPEN ACCESS OPEN ACCESS [id number] HMO/POS/EPO/PPO - AETNA NETWORK OPEN [id number] ACCESS - CIGNA CVCP-AETNA [id number] AETNA [facility] [id number] 2020 00:00:00 ACCESS Problems This patient has no known problems. Allergies, Adverse Reactions, Alerts Allergy Allergy Status Severity Reaction(s) Onset Inactive Treating Comm ents Source Name Type Date Date Clinician NO KNOWN Allergy Active [facility] Social History Social Habit Start Date Stop Date Quantity Comments Source History [facility] ge Alcohol Frequency of Medi cine History [facility] ge Alcohol Std Drinks of Med icine History [facility] ge Alcohol Binge of Medicine Exposure to Yes [facility] Kyler e SARS-CoV-2 (event) of Med icine Alcohol intake 2021-08-17 2021-08-17 Current drinker [facility] 00:00:00 00:00:00 of alcohol of Medicine (finding) Alcohol Comment 2020-10-09 2020-10-09 social [facility] [employer] 00:00:00 00:00:00 of Medicine Tobacco use and 2020-10-09 2020-10-09 Never used [facility] [employer] exposure 00:00:00 00:00:00 of Medicine Sex Ass[birth year] At [birth year] [facility] [employer] 00:00:00 00:00:00 of Medicine Smoking Status Start Date Stop Date Source Never smoker [facility] f Medicine Medications Ordered Filled Start Stop Current Ordering Indication Dosage Frequency Signature Comments Components Source Medication Medication Date Date Medication? Clinician (SIG) Name Name Vitamin D, 2020-11 Yes 1{capsu Take 1 [facility] 0-11 le} capsule by Julien moses, 1.25 15:23: mouth of MG (03059 06 every 7 Medicin UT) CAPS days. e pantoprazol 2020- Yes 20mg Take 1 [place] [facility] e 07-30 Tablet by [facility] (PROTONIX) 00:00: 05:59 mouth of 20 MG 00 :00 daily for Medicin tablet 90 days. e Take everyday for 3 months pantoprazol 2020- Yes 20mg Take 1 [place] [facility] e 07-30 Tablet by [facility] (PROTONIX) 00:00: 05:59 mouth of 20 MG 00 :00 daily for Medicin tablet 90 days. e Take everyday for 3 months pantoprazol 2020- Yes 20mg Take 1 [place] [facility] e 07-30 Tablet by [facility] (PROTONIX) 00:00: 05:59 mouth of 20 MG 00 :00 daily for Medicin tablet 90 days. e Take everyday for 3 months tramadol 2020- Yes 1{tbl} Take 1 [facility] (ULTRAM) 50 07-30 10- Tablet by Co claudette MG tablet 00:00: 04:59 mouth of 00 :00 every 8 Medicin hours as e needed for Pain for up to 7 days. Take after surgery as needed for pain ondansetron 2020- Yes 4mg Take 1 [place] [facility] (ZOFRAN-ODT 07-30 Tablet by Co llege [...] pain ondansetron 2020- Yes 4mg Take 1 [place] [facility] (ZOFRAN-ODT 07-30 Tablet by Co llege [...] as needed for nausea Vitamin D, Yes [id number] TAKE 1 [facility] 6-03 CAPSULE BY Co claudette moses, 1.25 00:00: MOUTH of MG (58724 00 EVERY 7 Medicin UT) CAPS DAYS e Vitamin D, Yes [id number] TAKE 1 [facility] Ergocalcife 6-03 CAPSULE BY Co michelee rol, 1.25 00:00: MOUTH of MG (41439 00 EVERY 7 Medicin UT) CAPS DAYS e Vitamin D, Yes [id number] TAKE 1 [facility] Ergocalcife 6-03 CAPSULE BY Co llege rol, 1.25 00:00: MOUTH of MG (97558 00 EVERY 7 Medicin UT) CAPS DAYS e Vitamin D, 2020- No [id number] TAKE 1 [facility] 6-03 10-11 CAPSULE BY Alfonso moses, 1.25 00:00: 00:00 MOUTH of MG (25736 00 :00 EVERY 7 Medicin UT) CAPS [...] e sertraline 2019-11 Yes 1{tbl} Take 1 [place] [facility] (ZOLOFT) 1-09 Tablet by Colleg e 100 MG 00:00: mouth of tablet 00 daily. Medicin e sertraline 2019-11 Yes 1{tbl} Take 1 [place] [facility] (ZOLOFT) 1-09 Tablet by Colleg e 100 MG 00:00: mouth of tablet 00 daily. Medicin e sertraline 2019-11 Yes 1{tbl} Take 1 [place] [facility] (ZOLOFT) 1-09 Tablet by Colleg e 100 MG 00:00: mouth of tablet 00 daily. Medicin e sertraline 2019-11 Yes 1{tbl} Take 1 [place] [facility] (ZOLOFT) 1-09 Tablet by Colleg e 100 MG 00:00: mouth of tablet 00 daily. Medicin e sertraline 2019-11 Yes 1{tbl} Take 1 [place] [facility] (ZOLOFT) 1-09 Tablet by Colleg e 100 MG 00:00: mouth of tablet 00 daily. Medicin e Continuous 2019-11 Yes 1{strip 1 Strip [facility] Blood Gluc 0-12 } See Admin Eze ege Sensor 00:00: Instructio of (FREESTYLE 00 ns. Medicin CAROL 2 e SENSOR SYSTM) MIS Continuous 2019-11 Yes 1{strip 1 Strip [facility] Blood Gluc 0-12 } See Admin Eze ege Sensor 00:00: Instructio of (FREESTYLE 00 ns. Medicin CAROL 2 e SENSOR SYSTM) MISC Continuous 2019-11- No 1{strip 1 Strip [facility] Blood Gluc 07-30 } See Admin Col lege Sensor 00:00: 00:00 Instructio of (FREESTYLE 00 :00 ns. Medicin CAROL 2 e SENSOR SYSTM) [facility] [place] 2019-11- No 1{strip 1 Strip [facility] Blood Gluc 07-30 } See Admin Col lege Sensor 00:00: 00:00 Instructio of (FREESTYLE 00 :00 ns. Medicin CAROL 2 e SENSOR SYSTM) [facility] Atorvastati Atorvastati Yes Marco Antonio [address] [facility] Calcium n Calcium 07-15 [facility] - 00:00: [facility] 00 [facility] Zoloft Zoloft Yes Marco Antonio Take 1/[address] [facility] 07-15 Lopez tab QD x 1 [facility] - 00:00: week then Memoria 00 take 1 tab l QD [facility] Xigduo XR Xigduo XR 2019- Marco Antonio [address] [facility] [facility] - 12- Lopez [facility] - 00:00: 00:00 [facility] 00 :00 [facility] Immunizations Ordered Filled Immunization Date Status Comments [facility] e Immunization Name Name PNEUMAVAX 23 PNEUMAVAX 23 2020-06-[address] [facility] es - 00:00:00 [facility] Vital Signs Vital Name Observation Time Observation Value Comments Source HEIGHT 2021-08-04 06:30:00 167.6 cm WEIGHT 2021-08-04 06:30:00 114.76 kg HEIGHT 2021-08-03 08:40:00 167 cm WEIGHT 2021-08-03 08:40:00 102 kg Systolic blood 2021-08-17 20:11:00 115 mm[Hg] [facility] pressure Medicine Diastolic blood 2021-08-17 20:11:00 75 mm[Hg] [facility] pressure Medicine Heart rate 2021-08-17 20:11:00 65 /min [facility] Body temperature 2021-08-17 20:11:00 36.83 [facility] Body height 2021-08-17 20:11:00 167.6 cm [facility] Body weight 2021-08-17 20:11:00 108.41 kg [facility] BMI 2021-08-17 20:11:00 38.58 kg/m2 [facility] HEIGHT 2021-08-04 06:30:00 167.6 cm WEIGHT 2021-08-04 06:30:00 114.76 kg HEIGHT 2021-08-03 08:40:00 167 cm WEIGHT 2021-08-03 08:40:00 102 kg Systolic blood 2021 17:49:00 116 mm[Hg] [facility] pressure Medicine Diastolic blood 2021 17:49:00 79 mm[Hg] [facility] Medicine Heart rate 2021 17:49:00 82 /min [facility] ollege of [facility] Body temperature 2021 17:49:00 36.56 [facility] Body height 2021 17:49:00 167.6 cm [facility] Body weight 2021 17:49:00 114.76 kg [facility] BMI 2021 17:49:00 40.84 kg/m2 [facility] ollege of Medicine Systolic blood 2020-10-09 14:14:00 117 mm[Hg] [facility] pressure Medicine Diastolic blood 2020-10-09 14:14:00 77 mm[Hg] [facility] Medicine Heart rate 2020-10-09 14:14:00 98 /min [facility] ollege of Medicine Body temperature 2020-10-09 14:14:00 36.83 [facility] Body height 2020-10-09 14:14:00 167.6 cm [facility] Body weight 2020-10-09 14:14:00 108.591 kg [facility] BMI 2020-10-09 14:14:00 38.64 kg/m2 [facility] Systolic blood 2020-10-09 14:14:00 117 mm[Hg] [facility] pressure Medicine Diastolic blood 2020-10-09 14:14:00 77 mm[Hg] [facility] pressure Medicine Heart rate 2020-10-09 14:14:00 98 /min [facility] Body temperature 2020-10-09 14:14:00 36.83 [facility] Body height 2020-10-09 14:14:00 167.6 cm [facility] Body weight 2020-10-09 14:14:00 108.591 kg [facility] BMI 2020-10-09 14:14:00 38.64 kg/m2 [facility] Procedures This patient has no known procedures. Plan of Care Planned Activity Planned Date Details Comments Source Future Scheduled 2021-08-17 BMI FOLLOW UP PLAN [facility] Test 15:15:29 [code = BMI FOLLOW UP of Med icine PLAN] Future Scheduled 2021-08-17 Screening for malignant [facility] Test 15:13:47 neoplasm of colon of Medicin e (procedure) [code = 013631797] Future Scheduled 2021-08-17 Screening for malignant [facility] Test 15:13:47 neoplasm of breast of Medici ne (procedure) [code = 057350642] Future Scheduled 2021-08-17 TETANUS SHOT (ADULT) [facility] Test 15:13:47 [code = TETANUS SHOT of Medi cine (ADULT)] Future Scheduled 2021-08-17 Hepatitis C screening [facility] Test 15:13:47 (procedure) [code = of Medic ine 617371000] Future Scheduled 2021-08-17 Human immunodeficiency B [facility] Test 15:13:47 virus screening of Medicine (procedure) [code = 299979119] Future Scheduled 2021-08-17 Screening for malignant [facility] Test 15:13:47 neoplasm of cervix of Medici ne (procedure) [code = 639076788] Future Scheduled 2021-08-17 FLU VACCINE > 6 MONTHS B [facility] Test 15:13:47 [code = FLU VACCINE > 6 of M edicine MONTHS] Future Scheduled 2021-08-17 ZOSTER VACCINE (1 of 2) [facility] Test 15:13:47 [code = ZOSTER VACCINE of Me dicine (1 of 2)] Future Scheduled 2021 BMI FOLLOW UP PLAN [facility] Test 12:51:47 [code = BMI FOLLOW UP of Med icine PLAN] Future Scheduled 2021 BMI FOLLOW UP PLAN [employer] Test 12:51:47 [code = BMI FOLLOW UP of Med icine PLAN] Future Scheduled 2021 Screening for malignant [facility] [employer] Test 12:49:38 neoplasm of colon of Medicin e (procedure) [code = 561428463] Future Scheduled 2021 Screening for malignant [facility] Test 12:49:38 neoplasm of breast of Medici ne (procedure) [code = 761181970] Future Scheduled 2021 TETANUS SHOT (ADULT) [place] [facility] Test 12:49:38 [code = TETANUS SHOT of Medi cine (ADULT)] Future Scheduled 2021 Hepatitis C screening [employer] [facility] [employer] Test 12:49:38 (procedure) [code = of Medic ine 956912576] Future Scheduled 2021 Human immunodeficiency [facility] [employer] Test 12:49:38 virus screening of Medicine (procedure) [code = 007269595] Future Scheduled 2021 Screening for malignant [facility] [employer] Test 12:49:38 neoplasm of cervix of Medici ne (procedure) [code = 860660693] Future Scheduled 2021 FLU VACCINE > 6 MONTHS [facility] [employer] Test 12:49:38 [code = FLU VACCINE > 6 of M edicine MONTHS] Future Scheduled 2021 ZOSTER VACCINE (1 of 2) [employer] Test 12:49:38 [code = ZOSTER VACCINE of Me dicine (1 of 2)] Future Scheduled 2021 Screening for malignant [facility] [employer] Test 12:49:38 neoplasm of colon of Medicin e (procedure) [code = 945511669] Future Scheduled 2021 Screening for malignant [employer] Test 12:49:38 neoplasm of breast of Medici ne (procedure) [code = 924285485] Future Scheduled 2021 TETANUS SHOT (ADULT) [place] [facility] [employer] Test 12:49:38 [code = TETANUS SHOT of Medi cine (ADULT)] Future Scheduled 2021 Hepatitis C screening [employer] [facility] [employer] Test 12:49:38 (procedure) [code = of Medic ine 998599265] Future Scheduled 2021 Human immunodeficiency [facility] [employer] Test 12:49:38 virus screening of Medicine (procedure) [code = 130403486] Future Scheduled 2021 Screening for malignant [facility] [employer] Test 12:49:38 neoplasm of cervix of Medici ne (procedure) [code = 447475539] Future Scheduled 2021 FLU VACCINE > 6 MONTHS [facility] [employer] Test 12:49:38 [code = FLU VACCINE > 6 of M edicine MONTHS] Future Scheduled 2021 ZOSTER VACCINE (1 of 2) [facility] [employer] Test 12:49:38 [code = ZOSTER VACCINE of Me dicine (1 of 2)] Future Scheduled 2021-07-17 Screening for malignant [facility] [employer] Test 10:50:40 neoplasm of colon of Medicin e (procedure) [code = 748883123] Future Scheduled 2021-07-17 Screening for malignant [facility] [employer] Test 10:50:40 neoplasm of breast of Medici ne (procedure) [code = 402377407] Future Scheduled 2021-07-17 TETANUS SHOT (ADULT) [place] [facility] [employer] Test 10:50:40 [code = TETANUS SHOT of Medi cine (ADULT)] Future Scheduled 2021-07-17 Hepatitis C screening [employer] Test 10:50:40 (procedure) [code = of Medic ine 119137401] Future Scheduled 2021-07-17 Human immunodeficiency [facility] Test 10:50:40 virus screening of Medicine (procedure) [code = 267249735] Future Scheduled 2021-07-17 Screening for malignant [facility] [employer] Test 10:50:40 neoplasm of cervix of Medici ne (procedure) [code = 063779431] Future Scheduled 2021-07-17 FLU VACCINE > 6 MONTHS [facility] [employer] Test 10:50:40 [code = FLU VACCINE > 6 of M edicine MONTHS] Future Scheduled 2021-07-17 BMI FOLLOW UP PLAN [employer] Test 10:50:40 [code = BMI FOLLOW UP of Med icine PLAN] Future Scheduled PT INSTR GIVEN - Ordered: [facility] [employer] Test TOBACCO [code = NOCPT] 10/09/2020 of Me dicine Future Scheduled MAMMOGRAM ANNUAL [code [facility] = MAMMOGRAM ANNUAL] of Medic ine Future Scheduled TETANUS SHOT (ADULT) [place] [facility] [employer] Test [code = TETANUS SHOT of Medi cine (ADULT)] Future Scheduled HEPATITIS C SCREENING [employer] Test [code = HEPATITIS C of Medic ine SCREENING] Future Scheduled HIV SCREENING [code = [employer] [facility] [employer] [facility] HIV SCREENING] of Medicine Future Sched[facility] 3 YE[facility] FOLLOW of M edicine UP [code = CERVICAL CANCER SCREENING 3 YEAR FOLLOW UP] Future Scheduled FLU VACCINE > 6 MONTHS [facility] [employer] Test [code = FLU VACCINE > 6 of M edicine MONTHS] Encounters Start End Encounter Admission Attending Care Care Encounter Source Date/Time Date/Time Type Type Clinicians Facility Department ID 2021-08-16 Inpatient [facility] Surgery [id number] [facility] 06:30:09 SAMER 2021-09-23 2021-09-23 [facility] [id number] [place] 00:00:00 00:00:00 MAVIS [address] 2021-09-23 2021-09-23 [facility] [id number] [address] [place] [address] 00:00:00 00:00:00 MAVIS [address] 2021-09-14 2021-09-14 ambulatory [facility] [id number] 2021-09-09 2021-09-09 ambulatory [facility] [id number] [facility] 2021-09-02 2021-09-02 Outpatient [facility] [id number] [facility] 2021-09-01 2021-09-01 Outpatient [facility] [id number] [facility] 2021-08-28 2021-08-28 Outpatient [facility] [id number] [facility] 2021-08-20 2021-08-20 Outpatient [facility] [id number] [facility] 2021-08-17 2021-08-17 Office BRODY TAMEZ [id number] [facility] 14:47:06 15:14:31 Visit SAMER AMBULATOR 350.1.13.21 College Y 0.2.7.2.686 of [id number] [facility] sang 805 e 2021-08-10 2021-08-10 Outpatient [facility] [id number] [facility]00 [facility] 2021-08-10 2021-08-10 Outpatient [facility] [id number] [facility] 00[facility]00 [facility] 2021-08-03 2021-08-03 Outpatient [facility] [id number] [facility] 00:00:00 00:00:00 2021-07-31 2021-07-31 Outpatient [facility] [id number] [facility] 00[facility]00 [facility] 2021 2021 Outpatient [facility] [id number] [facility] 00:00:00 23:59:00 Kyler roman of Medicin e 2021 2021 Office BRODY Tamez [id number] [facility] 12:34:26 13:04:26 Visit Samer Gamil AMBULATOR 350.1.13.21 College Y 0.2.7.2.686 of [id number] [facility] sang 805 e 2021 2021 Outpatient [facility] [id number] [facility] 00:00:00 00:00:00 2021 2021 Outpatient [facility] [id number] [facility] 00:00:00 00:00:00 2021 2021 Outpatient [facility] [id number] [facility] 00:00:00 00:00:00 2021-07-17 2021-07-17 Office BRODY Webb [id number] [place] [address] 11:00:00 12:00:00 Visit Jolene AMBULATOR 350.1.13.21 College Y 0.2.7.2.686 of [id number] [facility] sang 810 e 2021-05-01 2021-05-01 Outpatient [facility] [id number] [facility] 2021-04-13 2021-04-13 Out[facility] [id number] [facility] 2021-03-27 2021-03-27 [facility] [id number] [facility] 2021-03-04 2021-03-04 Outpatient KILEY, [facility] [id number] [facility] 09:27:48 09:43:02 JOLENE Colleg e of Medicin e 2021-02-16 2021-02-16 Outpatient XUAN [facility] [id number] [facility] 09:30:25 09:54:09 JOLENE Colleg e of Medicin e 2021-02-04 2021-02-04 Outpatient XUAN [facility] [id number] [facility] 14:40:19 14:57:28 JOLENE Colleg e of Medicin e 2021-01-27 2021-01-27 Outpatient [facility] [id number] [facility] 00[facility]00[facility] 00[facility]00[facility]00 [facility] 2021-01-27 2021-01-27 Out[facility] [id number] [facility] 2021-01-24 2021-01-24 Outpatient [facility] [id number] [facility] 2021-01-09 2021-01-09 Out[facility] [id number] [facility] 2021-01-07 2021-01-07 Outpatient KILEY [facility] [id number] [facility] 09:28:50 09:55:15 JOLENE Colleg e of Medicin e 2020-12-10 2020-12-10 Outpatient KILEY [facility] [id number] [facility] 14:28:59 14:55:01 JOLENE roman of Medicin e 2020-11-13 2020-11-13 Outpatient [facility] [id number] [facility] 2020-10-22 2020-10-22 Outpatient [facility] [id number] [facility] 2020-10-22 2020-10-22 Outpatient [facility] [id number] [facility] 2020-10-13 2020-10-13 Outpatient [facility] [id number] [facility] 2020-10-13 2020-10-13 Outpatient [facility] [id number] [facility] 2020-10-09 2020-10-09 Office [facility] [id number] [facility] 08:04:19 09:04:19 Visit Samer Gamil AMBULATOR 350.1.13.21 College Y 0.2.7.2.686 of [id number] [facility] sang 800 e 2020-10-09 2020-10-09 Office Mattar, [facility] [id number] 08:04:19 09:04:19 Visit Samer Gamil AMBULATOR 350.1.13.21 Y 0.2.7.2.686 [id number] 2020-10-08 2020-10-08 Outpatient [facility] [id number] [facility] 2020-08-12 2020-08-12 Outpatient [facility] [id number] [facility] 2020-08-08 2020-08-08 Outpatient [facility] [id number] [facility] 00[facility]00 [facility] 2020-07-15 2020-07-15 [place] [facility] [id number] 08:30:00 08:30:00 [facility] 2020-07-10 2020-07-10 [place] [facility] [facility] [id number] 08:52:00 08:52:00 [facility] 2020-06-24 2020-06-24 [place] [facility] [id number] 15:30:00 15:30:00 [facility] Results Test Test Test Results Result Source Description Time Comments Comments TISSUE EXAM 2021-08- Surgical Pathology Report 04 Case: [id number] 17:14:04 Authorizing Provider: Alyssa Tamez MD Collected: 08/04/2021 08:32 AM Ordering Location: [facility] PERIOPERATIVE Received: 08/04/2021 10:02 AM SERVICES Pathologist: Lana Hui MD Specimen: Stomach, PARTIAL GASTRECTOMY STOMACH, PARTIAL GASTRECTOMY: - A PORTION OF GASTRIC BODY WITH NO SPECIFIC PATHOLOGIC CHANGES Signing Pathologist Direct Phone Line: [phone] signed by Lana Hui MD on 08/10/2021 [...] rugal folds. No discrete lesions are identified. Bleach Boiler Packer sections are submitted in A1-A2.SARINA Ochoa, HT ([facility]) POCT-GLUCOSE METER 2021-08-05 08:05:23 Test Item Value Reference Range Interpretation Comme nts POC-GLUCOSE METER (BEAKER) 106 mg/dL 70-110 : [facility] (test code = 1538) [facility] X, [address]68: Vest Baster/Techni bryan ID = [id number] for JESSICA SALDANA A POCT-GLUCOSE [id number] 21:44:33 Test Item Value Reference Range Interpretation Comments POC-GLUCOSE METER 113 mg/dL 70-110 H : [facility] (BEAKER) (test code = [facility], 1538) 57183: Vest Baster/Techni bryan ID = [id number] for SHAHLA MCPHERSON POCT-GLUCOSE [id number] 16:59:35 Test Item Value Reference Range Interpretation Comments POC-GLUCOSE METER 151 mg/dL 70-110 H : [facility] (BEAKER[facility] (test code = [facility], 153) 11285: Vest Baster/Techni bryan ID = [id number] for An toine, Peggy POCT-GLUCOSE [id number] 13:26:55 Test Item Value Reference Range Interpretation Comments POC-GLUCOSE METER 169 mg/dL 70-110 H : [facility] (BEAKER) (test code = [facility], 153) 85162: Vest Baster/Techni bryan ID = [id number] for An toine, Peggy POCT-GLUCOSE [id number] 12:17:26 Test Item Value Reference Range Interpretation Comments POC-GLUCOSE METER 161 mg/dL 70-110 H : [facility] (BEAKER) (test code = [facility], 153) 48283: Vest Baster/Techni bryan ID = [id number] for SUNG MARIE URINALYSIS W/ REFLEX URINE [id number] 08:05:03 Test Item Value Reference Range Interpretation [...] = 1521) SOURCE(BEAKER) (test code = 2795) Vest Baster ID - [auto]Vest Baster ID - [email or web address]/RT-PCR ([facility]) 2021 23:45:05 Test Item Value Reference Range Interpretation Comments SARS-COV2/RT-PCR (test code = Negative Negative [id number]) Negative result for this test determines that [...] the Parks SARS-CoV-2 assay.Fact Sheet for Healthcare Providers:https://www.ScaleBase.parks/kaylee/RT SARS-CoV-2 HCP Fact Sheet 51- 705416.pdfFact Sheet for Healthcare Patients:https://www.ScaleBase.Identify/kaylee/RT SARS-CoV-2 Patient Fact Sheet EN [id number].[id number] 12:32:40 Test Item Value Reference Range Interpretation Comments CREATININE (BEAKER) 0.61 mg/dL 0.57-1.25 (test code = 358) EGFR (BEAKER) (test 104 mL/min/1.73 ESTIM ATED GFR IS code = 1092) sq m NOT ACCURATE CREATININE CLEARANCE IN PREDICTING GLOMERULAR FILTRATION RATE . ESTIMATED GFR I S NOT APPLICABLE FOR DIALYSIS PATIEN TS. Vest Baster ID - TYLOR [id number] 12:32:40 Test Item Value Reference Range Interpretation Comments GLUCOSE RANDOM (BEAKER) (test code 147 mg/dL 70-105 H = 652) Vest Baster ID - TYLOR [id number] 12:32:39 Test Item Value Reference Range Interpretation Comments BLOOD UREA NITROGEN (BEAKER) (test 11 mg/dL 7-21 code = 354) Vest Baster ID - TYLOR [id number] 12:32:39 Test Item Value Reference Range Interpretation Comments SODIUM (BEAKER) (test code = 381) 142 meq/L 136-145 POTASSIUM (BEAKER) (test code = 4.0 meq/L 3.5-5.1 379) CHLORIDE (BEAKER) (test code = 382) 106 meq/L 98-107 CO2 (BEAKER) (test code = 355) 27 meq/L 22-29 Vest Baster ID - DOMINICOBDULIA [id number] 12:13:22 Test Item Value Reference Range Interpretation Comments HEMOGLOBIN (OSIEL) (test code = 11.8 GM/DL 11.2-15.7 410) Vest Baster ID - [id number]-PCR ([facility])2020-05-12 19:10:00 Test Item Value Reference Range Interpretation Comments SARS-COV2/RT-PCR (test code = Positive Not Detected, Negative A A [id number]) SARS-COV-[address] [facility] (test code = 7293277) Results are for the detection of SARS-CoV-2 [...] 564(g) of the Act.Fact Sheet for Healthcare Providers:https://www.[employer].com/sites/default/files/product/d ocuments/Wuuj_Qjloc_NW_Vtslwnnfe_Agnn_CSAX-UgY-2.pdfFact Sheet for Healthcare Patients:https://www.[employer].com/sites/default/files/product/documents/Fact_Sheet_Patients_Lyra_SARS-CoV -2.pdfPerforming Laboratory:[facility] [place] [address]
--- NOTE | 2021-09-24 18:10 | RAD REPORT ---
EXAM DESCRIPTION: RAD - Chest Single View - 09/24/2021 6:00 pm CLINICAL HISTORY: FEVER COMPARISON: <Comparisons> FINDINGS: Lines: Right IJ approach Port-A-Cath with tip overlying the right distal brachiocephalic v ein versus proximal SVC. Lungs: No evidence of edema or pneumonia. Pleural: No significant pleural effusions or pneumothorax. Cardiac: The heart size is within normal limits. Bones: No acute fractures. Other: IMPRESSION: No acute cardiopulmonary disease.
[2021-09-24 18:18] LABS: Absolute Lymphocytes (CBC) 2.3 K/uL (0.7-4.9); Basophils % 1.1 % (0-1.3); Hematocrit 31.9 % (36.0-45.0); Lymphocytes % 19.8 % (15.3-44.8); MPV 6.6 fL (7.6-11.3); RBC Red Blood Cell Count 4.22 M/uL (3.86-4.86)
[2021-09-24 18:23] LABS: ALT/SGPT 47 U/L (12-78); AST/SGOT 44 U/L (15-37); Albumin 2.5 g/dL (3.4-5.0); Alkaline Phosphatase 112 U/L (45-117); BUN Blood Urea Nitrogen 8 mg/dL (7-18); Bicarbonate 29 mmol/L (21-32); Bilirubin Direct 0.2 mg/dL (0-0.2); Bilirubin Total 0.7 mg/dL (0.2-1.0); Glucose Level 105 mg/dL (74-106); Lipase 75 U/L (73-393); Potassium 3.4 mmol/L (3.5-5.1); Protein, Total 7.9 g/dL (6.4-8.2); Sodium Level 141 mmol/L (136-145); Troponin (Emerg Dept Use Only) < 0.02 ng/mL (0.0-0.045)
[2021-09-24 18:36] LABS: Protime INR 1.21
[2021-09-24 18:55] LABS: SARS-COV-2 RT PCR NEGATIVE (NEGATIVE)
[2021-09-24 18:59] LABS: Urine Blood 3+ (Negative); Urine Glucose Negative (Negative); Urine Protein Negative (Negative); Urine Specific Gravity 1.015 (1.005-1.030)
[2021-09-24 19:23] LABS: Urine Bacteria <20 /HPF (<20); Urine RBC <5 /HPF (NONE SEEN)
[2021-09-24] MEDS ORDERED: POTASSIUM 25 MEQ EFFERV TAB ONE (20:30)
[2021-09-24] MEDS ORDERED: levoFLOXacin 500 MG TAB ONE (20:30)
[2021-09-24] MEDS ORDERED: POTASSIUM CL SA 10 MEQ TAB PO ONE (20:34)
[2021-09-24] MEDS ORDERED: MORPHINE 4 MG/ML SYR ONE (20:41)
[2021-09-24] MEDS ORDERED: ONDANSETRON 4 MG/2 ML VIAL ONE (20:42)
--- NOTE | 2021-09-24 20:54 | ER ---
Nurse's Notes [facility] Name: Ailin Dickson Age: 51 yrs Sex: Female : 1970 Arrival Date: 09/24/2021 Time: 17:10 Bed 7 Private MD: Diagnosis: Malignant neoplasm of colon, unspecified;Other specified fever Presentation: 09/24 17:14 Chief complaint: Patient states: Fever that began this morning. Pt had a port o cath ss placed on Tuesday and her doctor wants to make sure that it is not infected or that she has sepsis. Recently diagnosed with Cancer and starts chemo soon. Coronavirus screen: Client denies travel out of the [place] in the last 14 days. Ebola Screen: Patient denies exposure to infectious person. Patient denies travel to an Ebola-affected area in the 21 days before illness onset. Initial Sepsis Screen: Does the patient meet any 2 criteria? No. Patient's initial sepsis screen is negative. Does the patient have a suspected source of infection? No. Patient's initial sepsis screen is negative. Risk Assessment: Do you want to hurt yourself or someone else? Patient reports no desire to harm self or others. Onset of symptoms was September 24, 2021. 17:14 Method Of Arrival: Ambulatory ss 17:14 Acuity: MADDI 3 ss Historical: - Allergies: 17:15 No Known Allergies; ss - PMHx: 17:15 diabetes mellitus; Stage 4, adenocarcinoma of colon; ss - PSHx: 17:15 Appendectomy; section; Cholecystectomy; gastric sleeve; ss - Immunization history:: Client reports receiving the 2nd dose of the Covid vaccine. - Social history:: Smoking status: Patient denies any tobacco usage or history of. Screenin:07 Abuse screen: Denies threats or abuse. Nutritional screening: No deficits noted. ll3 Tuberculosis screening: No symptoms or risk factors identified. Fall Risk No fall in past 12 months (0 pts). IV access (20 points). Gait- Normal/Bed Rest/Wheelchair (0 pts) Mental Status- Oriented to own ability (0 pts). Assessment: 19:07 General: Appears in no apparent distress. uncomfortable, Behavior is calm, cooperative, ll3 Reports fever for 12-24 hours. Pain: Denies pain. Neuro: Level of Consciousness is awake, alert, obeys commands, Oriented to person, place, time, situation, Gait is steady, Speech is normal, Facial symmetry appears normal. Cardiovascular: Patient's skin is warm and dry. Respiratory: Airway is patent Trachea midline Respiratory effort is even, unlabored, Respiratory pattern is regular, symmetrical. GI: Abdomen is round. : Urine is clear. Derm: Skin is pink, warm \T\ dry. Musculoskeletal: No deficits noted. Vital Signs: 17:14 BP 108 / 75; Pulse 55; Resp 16; Temp 97.8(TE); Pulse Ox 97% on R/A; Weight 99.79 kg; ss Height 5 ft. 6 in. (167.64 cm); Pain 0/10; 19:15 BP 106 / 53; Pulse 87; Resp 28; Pulse Ox 98% ; ll3 20:50 BP 115 / 74; Pulse 85; Resp 18; Temp 97.8(O); Pulse Ox 98% on R/A; df1 17:14 Body Mass Index 35.51 (99.79 kg, 167.64 cm) ED Course: 17:10 Patient arrived in ED. as 17:15 Triage completed. ss 17:15 Gus Reynolds, MIREILLE is Primary Nurse. jl7 17:15 Arm band placed on right wrist. ss 17:16 Jean-Paul Velarde PA is PHCP. cp 17:16 Edid Isaac MD is Attending Physician. cp 18:00 Inserted saline lock: 22 gauge in right forearm, using aseptic technique. Blood ll3 collected. 18:01 Chest Single View XRAY In Process Unspecified. EDMS 18:07 Kiera Phelps, MIREILLE is Primary Nurse. ll3 18:07 COVID-19/FLU A+B Sent. ll3 18:07 Basic Metabolic Panel Sent. ll3 18:07 Blood Culture Adult (2) Sent. ll3 18:07 CBC with Diff Sent. ll3 18:07 LFT's Sent. ll3 18:07 Lactate Sent. ll3 18:07 Lipase Sent. ll3 19:01 Urine Culture Sent. ll3 19:07 Patient has correct armband on for positive identification. Placed in gown. Bed in low ll3 position. Call light in reach. 21:07 No provider procedures requiring assistance completed. IV discontinued, intact, ld1 bleeding controlled, No redness/swelling at site. Administered Medications: 20:34 CANCELLED (Physician Discretion): Potassium Effervescent Tablet 50 mEq PO once; cp dissolve in 4 ounces of water or juice 20:49 Drug: LevaQUIN (levofloxacin) 500 mg Route: PO; df1 20:49 Drug: Zofran (Ondansetron) 4 mg Route: IVP; Site: right antecubital; df1 20:49 Drug: Potassium Chloride Liquid 40 mEq Route: PO; df1 20:49 Not Given (Patient Refused): morphine 4 mg IVP once; RASS on ADMIN: Combtv4, Very df1 Agttd3, Agttd2, Rstlss1, AlertClm0, Drwsy-1, Lt Sdtn-2, Mod Sdtn-3, Dp Sdtn-4, UnArsble-5 Point of Care Testing: Urine : 19:07 hCG Reading: Negative; Control Reading: Negative; ll3 Outcome: 20:54 Discharge ordered by MD. cp 21:07 Discharged to home ambulatory. ld1 21:07 Condition: stable 21:07 Discharge instructions given to patient, Instructed on discharge instructions, follow up and referral plans. Demonstrated understanding of instructions, follow-up care. 21:08 Patient left the ED. ld1 Signatures: Dispatcher [employer] Camila Thakur Shelby, RN RN Jean-Paul Kramer, SARINA PA cp Gus Reynolds RN RN jl7 Dilma Prince RN RN ld1 Rachel Triana df1 Kiera Phelps RN RN ll3 Corrections: (The following items were deleted from the chart) 19:12 19:07 Inserted saline lock: 22 gauge in right forearm, using aseptic technique. Blood ll3 collected. ll3
--- NOTE | 2021-09-24 20:54 | EDPHYS ---
Physician Documentation [facility] Name: Aiiln Dickson Age: 51 yrs Sex: Female : 1970 Arrival Date: 09/24/2021 Time: 17:10 Bed 7 Private MD: ED Physician Eddi Isaac HPI: 09/24 17:38 This 51 yrs old Female presents to ER via Ambulatory with complaints of Fever, r/o cp sepsis. 17:38 The patient reports fever, that was measured at 101.6 degrees Fahrenheit. cp 17:38 Onset: The symptoms/episode began/occurred this morning. cp 17:38 Associated signs and symptoms: Pertinent positives: abdominal pain, Pertinent cp negatives: cough, diarrhea, headache, shortness of breath, vomiting. 17:38 Patient reports taking tylenol 500 mg today at around 1600 for fever. Patient recently cp diagnosed with stage 4 colon cancer and is scheduled to start chemo next week. Oncologist is DR Hallman and patient reports having subclavian port placed by DR Bojorquez this past Tuesday. Historical: - Allergies: 17:15 No Known Allergies; ss - PMHx: 17:15 diabetes mellitus; Stage 4, adenocarcinoma of colon; ss - PSHx: 17:15 Appendectomy; section; Cholecystectomy; gastric sleeve; ss - Immunization history:: Client reports receiving the 2nd dose of the Covid vaccine. - Social history:: Smoking status: Patient denies any tobacco usage or history of. ROS: 18:00 Constitutional: Positive for fever, Negative for body aches, chills, poor PO intake. cp 18:00 Eyes: Negative for injury, pain, redness, and discharge. cp 18:00 ENT: Negative for ear pain, sore throat, difficulty swallowing, difficulty handling secretions. 18:00 Cardiovascular: Negative for chest pain, edema, palpitations. 18:00 Respiratory: Negative for cough, shortness of breath, wheezing. 18:00 Abdomen/GI: Positive for abdominal pain, nausea, Negative for vomiting, diarrhea, constipation. 18:00 Back: Negative for pain at rest, pain with movement. 18:00 : Negative for urinary symptoms. 18:00 Skin: Negative for cellulitis, rash. 18:00 Neuro: Negative for altered mental status, headache, syncope, weakness. 18:00 All other systems are negative. Exam: 18:05 Constitutional: The patient appears in no acute distress, alert, awake, non-toxic, well cp developed, well nourished. 18:05 Head/Face: Normocephalic, atraumatic. cp 18:05 Eyes: Periorbital structures: appear normal, Conjunctiva: normal, no exudate, no injection, Sclera: no appreciated abnormality, Lids and lashes: appear normal, bilaterally. 18:05 ENT: External ear(s): are unremarkable, Nose: is normal, Mouth: Lips: moist, Oral mucosa: pink and intact, moist, Posterior pharynx: Airway: no evidence of obstruction, patent, erythema, is not appreciated, exudate, is not appreciated. 18:05 Neck: ROM/movement: is normal, is supple, without pain, no range of motions limitations, no meningismus. 18:05 Chest/axilla: Inspection: normal, Palpation: crepitus, is not appreciated, tenderness, that is moderate, of the anterior aspect of right upper chest. 18:05 Cardiovascular: Rate: bradycardic, Rhythm: regular, Edema: is not appreciated, JVD: is not appreciated. 18:05 Respiratory: the patient does not display signs of respiratory distress, Respirations: normal, no use of accessory muscles, no retractions, labored breathing, is not present, Breath sounds: are clear throughout, no decreased breath sounds, no stridor, no wheezing. 18:05 Abdomen/GI: Inspection: abdomen appears normal, Bowel sounds: active, all quadrants, Palpation: soft, in all quadrants, mild abdominal tenderness, in all quadrants, rebound tenderness, is not appreciated, involuntary guarding, is not appreciated. 18:05 Back: CVA tenderness, is absent. 18:05 Skin: cellulitis, is not appreciated, no rash present. 18:05 Neuro: Orientation: to person, place \T\ time. Mentation: is normal, Motor: moves all fours, strength is normal, Sensation: is normal. 18:53 ECG was reviewed by the Attending Physician. cp Vital Signs: 17:14 BP 108 / 75; Pulse 55; Resp 16; Temp 97.8(TE); Pulse Ox 97% on R/A; Weight 99.79 kg; ss Height 5 ft. 6 in. (167.64 cm); Pain 0/10; 19:15 BP 106 / 53; Pulse 87; Resp 28; Pulse Ox 98% ; ll3 20:50 BP 115 / 74; Pulse 85; Resp 18; Temp 97.8(O); Pulse Ox 98% on R/A; df1 17:14 Body Mass Index 35.51 (99.79 kg, 167.64 cm) ss MDM: 17:26 Patient medically screened. cp 18:00 Differential diagnosis: viral Infection, bacterial infection, pneumonia UTI, cp meningitis, sepsis. 20:13 Data reviewed: vital signs, nurses notes, lab test result(s), EKG, radiologic studies, cp plain films. Physician consultation: Rosita Sierra MD was called at 20:14, was contacted at 20:14, regarding consult, patient's condition, wants patient started on Levaquin 500 mg daily for 7 days and f/u next week as scheduled. Continue OTC tylenol as directed for fever. 09/24 17:31 Order name: Urine Culture cp 09/24 17:31 Order name: Basic Metabolic Panel cp 09/24 17:31 Order name: Blood Culture Adult (2) cp 09/24 17:31 Order name: CBC with Diff cp 09/24 17:31 Order name: LFT's cp 09/24 17:31 Order name: Lactate cp 09/24 17:31 Order name: Lipase cp 09/24 17:31 Order name: Procalcitonin; Complete Time: 18:47 cp 09/24 17:31 Order name: Protime (+inr); Complete Time: 18:47 cp 09/24 17:31 Order name: Ptt, Activated; Complete Time: 18:47 cp 09/24 17:31 Order name: Troponin (emerg Dept Use Only); Complete Time: 18:47 cp 09/24 17:31 Order name: Urine Microscopic Only; Complete Time: 19:54 cp 09/24 17:31 Order name: Urine Dipstick-Ancillary (obtain specimen); Complete Time: 19:01 cp 09/24 17:31 Order name: Chest Single View XRAY; Complete Time: 18:47 cp 09/24 17:31 Order name: Urine Culture EDMS 09/24 17:31 Order name: Basic Metabolic Panel; Complete Time: 18:47 EDMS 09/24 18:47 Interpretation: Normal except: K 3.4; CRE 0.53. 09/24 17:31 Order name: Blood Culture EDMS 09/24 17:31 Order name: CBC with Automated Diff; Complete Time: 18:47 EDMS 09/24 18:47 Interpretation: Normal except: WBC 11.70; HGB 10.3; HCT 31.9; MCV 75.6; MCH 24.3; PLT cp 646; RDW 15.4; MPV 6.6; NEUT A 8.3. 09/24 17:32 Order name: Liver (Hepatic) Function; Complete Time: 18:47 EDMS 09/24 18:48 Interpretation: Normal except: AST 44; ALB 2.5; GLOB 5.4; A/G 0.5. 09/24 17:32 Order name: Lactate; Complete Time: 18:47 EDMS 09/24 17:32 Order name: Lipase; Complete Time: 18:47 EDMS 09/24 18:06 Order name: COVID-19/FLU A+B; Complete Time: 19:02 EDSD 09/24 18:59 Order name: Urine Dipstick-Ancillary; Complete Time: 19:02 EDMS 09/24 19:02 Interpretation: Normal except: UBLD 3+; UESTR Trace. 09/24 17:31 Order name: Urine Test (obtain specimen); Complete Time: 19:01 09/24 17:31 Order name: Accucheck; Complete Time: 18:00 09/24 17:31 Order name: Cardiac monitoring; Complete Time: 19:06 09/24 17:31 Order name: EKG - Nurse/Tech; Complete Time: 19:01 09/24 17:31 Order name: IV Saline Lock - Large Bore; Complete Time: 18:00 cp 09/24 17:31 Order name: Labs collected and sent; Complete Time: 18:00 09/24 17:31 Order name: O2 Per Protocol; Complete Time: 18:00 09/24 17:31 Order name: O2 Sat Monitoring; Complete Time: 18:00 09/24 20:01 Order name: Vital Signs: please recheck to include temp; Complete Time: 20:50 cp EC:53 Rate is 79 beats/min. Rhythm is regular. SC interval is normal. QRS interval is normal. cp QT interval is normal. T waves are Inverted in lead aVR. Interpreted by me. Reviewed by me. Administered Medications: 20:34 CANCELLED (Physician Discretion): Potassium Effervescent Tablet 50 mEq PO once; cp dissolve in 4 ounces of water or juice 20:49 Drug: LevaQUIN (levofloxacin) 500 mg Route: PO; df1 20:49 Drug: Zofran (Ondansetron) 4 mg Route: IVP; Site: right antecubital; df1 20:49 Drug: Potassium Chloride Liquid 40 mEq Route: PO; df1 20:49 Not Given (Patient Refused): morphine 4 mg IVP once; RASS on ADMIN: Combtv4, Very df1 Agttd3, Agttd2, Rstlss1, AlertClm0, Drwsy-1, Lt Sdtn-2, Mod Sdtn-3, Dp Sdtn-4, UnArsble-5 Point of Care Testing: Urine : 19:07 hCG Reading: Negative; Control Reading: Negative; ll3 Disposition: 09/25 07:16 Co-signature as Attending Physician, Eddi Isaac MD I agree with the assessment and kdr plan of care. Disposition Summary: 09/24/21 20:54 Discharge Ordered Location: Home cp Problem: new cp Symptoms: have improved cp Condition: Stable cp Diagnosis - Malignant neoplasm of colon, unspecified cp - Other specified fever cp Followup: cp - With: Private Physician - When: 2 - 3 days - Reason: Recheck today's complaints Discharge Instructions: - Discharge Summary Sheet cp - Fever, Adult cp Forms: - Medication Reconciliation Form cp - Thank You Letter cp - Antibiotic Education cp - Prescription Opioid Use cp Signatures: Dispatcher [employer] EDMS Eddi Isaac MD MD [facility] An Casas RN RN ss Jean-Paul Velarde PA PA cp Rachel Triana df1 Corrections: (The following items were deleted from the chart) 09/24 18:04 17:32 Influenza Screen (A \T\ B)+BA.LAB.BRZ ordered. EDMS EDMS 18:06 17:32 CORONAVIRUS+MR.LAB.BRZ ordered. EDMS EDMS 20:34 19:55 Potassium Effervescent Tablet 50 mEq PO once; dissolve in 4 ounces of water or cp juice ordered. cp 09/25 20:14 09/24 17:38 Patient reports taking tylenol 500 mg today at around 1600 for fever. cp Patient recently diagnosed with stage 4 colon cancer and is scheduled to start chemo next week. Oncologist is DR Hallman. cp
[2021-09-24 22:09] VITALS: TEMP 97.8
[2021-09-24 22:10] VITALS: O2SAT 98
[2021-09-24 22:16] VITALS: BP 115/74
--- NOTE | 2021-09-25 13:19 | EKG ---
Test Date: 2021-09-24 Test Time: 18:51:00 [employer] Drawer Hand: TRACI MEASUREMENT RESULTS: Intervals: Rate: 79 AL: 156 QRSD: 92 QT: 376 QTc: 431 [place]: P: 15 AL: 156 QRS: -16 T: 17 INTERPRETIVE STATEMENTS: Normal sinus rhythm Normal ECG Compared to ECG 08/18/2010 14:49:49 No significant changes Electronically Signed On 09-25-21 13:16:24 SUPPLY AIDE by Joe Wilkins
== END 2021-09-24 21:08 | disposition home or self-care (01) ==
LOC: ER 17:09
DX: C18.9 Malignant neoplasm of colon, unspecified (principal); E11.9 Type 2 diabetes mellitus without complications; Z20.822 Contact with and (suspected) exposure to COVID-19
CPT/HCPCS: 93005; 87040 ×2; 87088; 85025; 87086; 80048; 36415; 85610; 80076; 83605; 85730; 87077; 87186; 84484; 83690; 84145; 0240U; 71045; 96374; 99284; J2405; 81003; 81015

== ENCOUNTER 2021-11-02 17:11 | Inpatient (IN) | payer OTHER ==
--- OUTSIDE RECORDS SUMMARY | 2021-11-02 17:22 | XMS REPORT | Continuity of Care Document ---
:1970 Author Organization [facility] t Address [address] [place] [address] [address] [place] [address] Care Team Providers Name Role Phone NGOZI TAMEZ Attending Clinician Unavailable JORGE Attending Clinician Unavailable NGOZI TAMEZ Attending Clinician Unavailable Ngozi Tamez MD Attending Clinician Kiley PALENCIA Attending Clinician KILEY Attending Clinician Unavailable NGOZI TAMEZ Admitting Clinician Unavailable Payers Payer Name Policy Type Policy Number Effective Date Expiration Date Asha haley [employer] [id number] 2018 00:00:00 HMO/POS/OPEN ACCESS OPEN ACCESS [id number] HMO/POS/EPO/PPO - AETNA NETWORK OPEN [id number] ACCESS - CIGNA CVCP-AETNA [id number] AETNA [facility] [id number] 2020 00:00:00 ACCESS Problems This patient has no known problems. Allergies, Adverse Reactions, Alerts Allergy Allergy Status Severity Reaction(s) Onset Inactive Treating Comm ents Source Name Type Date Date Clinician NO KNOWN Allergy Active [facility] S Social History Social Habit Start Date Stop Date Quantity Comments Source History [facility] ge Alcohol Frequency of Medi cine History [facility] ge Alcohol Std Drinks of Med [facility] Binge of Medicine Exposure to Yes [facility] Kyler e SARS-CoV-2 (event) of Med icine Alcohol intake 2021-08-17 2021-08-17 Current drinker [facility] 00:00:00 00:00:00 of alcohol of Medicine (finding) Alcohol Comment 2020-10-09 2020-10-09 social [facility] 00:00:00 00:00:00 of Medicine Tobacco use and 2020-10-09 2020-10-09 Never used [facility] exposure 00:00:00 00:00:00 of Medicine Sex [birth year] At [birth year] [facility] 00:00:00 00:00:00 of Medicine Smoking Status Start Date Stop Date Source Never smoker [facility] o f Medicine Medications Ordered Filled Start Stop Current Ordering Indication Dosage Frequency Signature Comments Components Source Medication Medication Date Date Medication? Clinician (SIG) Name Name Vitamin D, 2020-11 Yes 1{capsu Take 1 [facility] 0-11 le} capsule by Co claudette moses, 1.25 15:23: mouth of MG (54040 06 every 7 Medicin [place]) CAPS days. e pantoprazol 2020- No 20mg Take 1 [place] [facility] e 07-30 Tablet by [facility] (PROTONIX) 00:00: 05:59 mouth of 20 MG 00 :00 daily for Medicin tablet 90 days. e Take everyday for 3 months pantoprazol 2020- No 20mg Take 1 [place] [facility] e 07-30 Tablet by [facility] (PROTONIX) 00:00: 05:59 mouth of 20 MG 00 :00 daily for Medicin tablet 90 days. e Take everyday for 3 months pantoprazol 2020- No 20mg Take 1 [place] [facility] e 07-30- Tablet by [facility] (PROTONIX) 00:00: 05:59 mouth of 20 MG 00 :00 daily for Medicin tablet 90 days. e Take everyday for 3 months tramadol 2020- No 1{tbl} Take 1 [facility] (ULTRAM) 50 07-30 10- Tablet by Co claudette MG tablet 00:00: 04:59 mouth of 00 :00 every 8 Medicin hours as e needed for Pain for up to 7 days. Take after surgery as needed for pain ondansetron 2020- No 4mg Take 1 [place] [facility] (ZOFRAN-ODT 07-30 Tablet by Co llege ) 4 mg 00:00: 04:59 mouth of disintegrat 00 :00 every 8 Medic in ing tablet hours as e needed for Nausea for up to 7 days. Take after surgery as needed for nausea tramadol 2020- No 1{tbl} Take 1 [facility] (ULTRAM) 50 07-30 Tablet by Co llege MG tablet 00:00: 04:59 mouth of 00 :00 every 8 Medicin hours as e needed for Pain for up to 7 days. Take after surgery as needed for pain ondansetron 2020- No 4mg Take 1 [place] [facility] (ZOFRAN-ODT 07-30 Tablet by Co llege ) 4 mg 00:00: 04:59 mouth of disintegrat 00 :00 every 8 Medic in ing tablet hours as e needed for Nausea for up to 7 days. Take after surgery as needed for nausea aprepitant 2020- No 40mg Take 1 [facility] (EMEND) 40 07-30 capsule by Co llege MG capsule 00:00: 04:59 mouth once of 00 :00 for 1 Medicin dose. Take e 2 hours before surgery Scopolamine 2020- No 1{patch Place 1 [facility] 1 MG/3DAYS 07-30 } Patch onto Co llege [id number] 00:00: 04:59 the skin of 00 :00 once for 1 Medicin dose. e Apply behind ear. Remove after 3 days- take as needed for nausea aprepitant 2020- No 40mg Take 1 [facility] (EMEND) 40 07-30 capsule by Co llege MG capsule 00:00: 04:59 mouth once of 00 :00 for 1 Medicin dose. Take e 2 hours before surgery Scopolamine 2020- No 1{patch Place 1 [facility] 1 MG/3DAYS 07-30 } Patch onto Co llege [id number] 00:00: 04:59 the skin of 00 :00 once for 1 Medicin dose. e Apply behind ear. Remove after 3 days- take as needed for nausea Vitamin D, Yes [id number] TAKE 1 [facility] 6-03 CAPSULE BY Co claudette moses, 1.25 00:00: MOUTH of MG (43009 00 EVERY 7 Medicin UT) CAPS DAYS e Vitamin D, Yes [id number] TAKE 1 [facility] 6-03 CAPSULE BY Co claudette moses, 1.25 00:00: MOUTH of MG (09815 00 EVERY 7 Medicin [place]) CAPS DAYS e Vitamin D, Yes [id number] TAKE 1 [facility] 6-03 CAPSULE BY Co claudette moses, 1.25 00:00: MOUTH of MG (70174 EVERY 7 Medicin [place]) CAPS DAYS e Vitamin D, 2020- No [id number] TAKE 1 [facility] Ergocalcife 6-03 10-11 CAPSULE BY Alfonso moses, 1.25 00:00: 00:00 MOUTH of MG (23982 00 :00 EVERY 7 Medicin [place]) CAPS DAYS e XIGDUO XR 2019-11 Yes 1{tbl} Take [...] e sertraline 2019-11 Yes 1{tbl} Take 1 [place] [facility] (ZOLOFT) 1-09 Tablet by Colleg e 100 MG 00:00: mouth of tablet 00 daily. Medicin e sertraline 2019-11 Yes 1{tbl} Take 1 [place] [facility] (ZOLOFT) 1-09 Tablet by Colleg e 100 MG 00:00: mouth of tablet 00 daily. Medicin e sertraline 2019-11 Yes 1{tbl} Take 1 [place] [facility] (ZOLOFT) 1-09 Tablet by Colleg e 100 MG 00:00: mouth of tablet 00 daily. Medicin e sertraline 2019-11 Yes 1{tbl} Take 1 [place] [facility] (ZOLOFT) 1-09 Tablet by Colleg e 100 MG 00:00: mouth of tablet 00 daily. Medicin e sertraline 2019-11 Yes 1{tbl} Take 1 [place] [facility] (ZOLOFT) 1-09 Tablet by Colleg e [...] ns. Medicin CAROL 2 e SENSOR SYSTM[place] [facility] [place] 2019-11- No 1{strip 1 Strip [facility] Blood Gluc 07-30 } See Admin Col lege Sensor 00:00: 00:00 Instructio of (FREESTYLE 00 :00 ns. Medicin CAROL 2 e SENSOR SYSTM) [facility] [place] 2019-11- No 1{strip 1 Strip [facility] Blood Gluc 07-30 } See Admin Col lege Sensor 00:00: 00:00 Instructio of (FREESTYLE 00 :00 ns. Medicin CAROL 2 e SENSOR SYSTM) [facility] [place] Atorvastati Atorvastati Yes Marco Antonio [address] [facility] Calcium n Calcium 07-15 [facility] - 00:[facility]: [facility] l [facility]pat[facility] Clinics Zoloft Zoloft Yes Marco Antonio Take 1/[address] [facility] [facility] 07-15 [facility] tab QD x 1 [facility] - 00:[facility]: week then [facility] 00 take 1 [facility] Xigduo XR Xigduo XR 2019- No Marco Antonio [address] [facility] [facility] 07-15 12- [facility] - 00[facility]00 [facility] 00 [facility] l [facility]pat[facility] ent Clinics Immunizations Ordered Filled Immunization Date Status Comments [facility] e Immunization Name Name PNEUMAVAX 23 PNEUMAVAX 23 2020-06-[address] [facility] - 00:00:00 [facility] Vital Signs Vital Name Observation Time Observation Value Comments Source HEIGHT 2021-08-04 06:30:00 167.6 cm WEIGHT 2021-08-04 06:30:00 114.76 kg HEIGHT 2021-08-03 08:40:00 167 cm WEIGHT 2021-08-03 08:40:00 102 kg Systolic blood 2021-08-17 20:11:00 115 mm[Hg] [facility] pressure Medicine Diastolic blood 2021-08-17 20:11:00 75 mm[Hg] [facility] pressure Medicine Heart rate 2021-08-17 20:11:00 65 /min [facility] Body temperature 2021-08-17 20:11:[address] [facility] Body height 2021-08-17 20:11:00 167.6 cm [facility] Body weight 2021-08-17 20:11:00 108.41 kg [facility] BMI 2021-08-17 20:11:00 38.58 kg/m2 [facility] HEIGHT 2021-08-04 06:30:00 167.6 cm WEIGHT 2021-08-04 06:30:00 114.76 kg HEIGHT 2021-08-03 08:40:00 167 cm WEIGHT 2021-08-03 08:40:00 102 kg Systolic blood 2021 17:49:00 116 mm[Hg] [facility] pressure Medicine Diastolic blood 2021 17:49:00 79 mm[Hg] [facility] Medicine Heart rate 2021 17:49:00 82 /min [facility] Body temperature 2021 17:49:[address] [facility] Body height 2021 17:49:00 167.6 cm [facility] Body weight 2021 17:49:00 114.76 kg [facility] BMI 2021 17:49:00 40.84 kg/m2 [facility] Systolic blood 2020-10-09 14:14:00 117 mm[Hg] [facility] pressure Medicine Diastolic blood 2020-10-09 14:14:00 77 mm[Hg] [facility] Medicine Heart rate 2020-10-09 14:14:00 98 /min [facility] Body temperature 2020-10-09 14:14:[address] [facility] Body height 2020-10-09 14:14:00 167.6 cm [facility] Body weight 2020-10-09 14:14:00 108.591 kg [facility] BMI 2020-10-09 14:14:00 38.64 kg/m2 [facility] Systolic blood 2020-10-09 14:14:00 117 mm[Hg] [facility] of pressure Medicine Diastolic blood 2020-10-09 14:14:00 77 mm[Hg] [facility] Heart rate 2020-10-09 14:14:00 98 /min [facility] Body temperature 2020-10-09 14:14:[address] [facility] Body height 2020-10-09 14:14:[address] [facility] Body weight 2020-10-09 14:14:[address] [facility] BMI 2020-10-09 14:14:00 38.64 kg/m2 [facility] Procedures This patient has no known procedures. Plan of Care Planned Activity Planned Date Details Comments Source Future Scheduled 2021-08-17 BMI FOLLOW UP PLAN [facility] Test 15:15:29 [code = BMI FOLLOW UP of Med icine PLAN] Future Scheduled 2021-08-17 Screening for malignant [facility] Test 15:13:47 neoplasm of colon of Medicin e (procedure) [code = 898744949] Future Scheduled 2021-08-17 Screening for malignant [facility] Test 15:13:47 neoplasm of breast of Medici ne (procedure) [code = 834243609] Future Scheduled 2021-08-17 TETANUS SHOT (ADULT) [facility] Test 15:13:47 [code = TETANUS SHOT of Medi cine (ADULT)] Future Scheduled 2021-08-17 Hepatitis C screening [facility] Test 15:13:47 (procedure) [code = of Medic ine 183855335] Future Scheduled 2021-08-17 Human immunodeficiency [facility] Test 15:13:47 virus screening of Medicine (procedure) [code = 986314678] Future Scheduled 2021-08-17 Screening for malignant [facility] Test 15:13:47 neoplasm of cervix of Medici ne (procedure) [code = 874233070] Future Scheduled 2021-08-17 FLU VACCINE > 6 MONTHS [facility] Test 15:13:47 [code = FLU VACCINE > 6 of M edicine MONTHS] Future Scheduled 2021-08-17 ZOSTER VACCINE (1 of 2) [facility] Test 15:13:47 [code = ZOSTER VACCINE of Me dicine (1 of 2)] Future Scheduled 2021 BMI FOLLOW UP PLAN [facility] Test 12:51:47 [code = BMI FOLLOW UP of Med icine PLAN] Future Scheduled 2021 BMI FOLLOW UP PLAN [employer] Test 12:51:47 [code = BMI FOLLOW UP of Med icine PLAN] Future Scheduled 2021 Screening for malignant [employer] Test 12:49:38 neoplasm of colon of Medicin e (procedure) [code = 199320612] Future Scheduled 2021 Screening for malignant [facility] [employer] Test 12:49:38 neoplasm of breast of Medici ne (procedure) [code = 116756711] Future Scheduled 2021 TETANUS SHOT (ADULT) [facility] [employer] Test 12:49:38 [code = TETANUS SHOT of Medi cine (ADULT)] Future Scheduled 2021 Hepatitis C screening [employer] Test 12:49:38 (procedure) [code = of Medic ine 982890992] Future Scheduled 2021 Human immunodeficiency [facility] [employer] Test 12:49:38 virus screening of Medicine (procedure) [code = 995537635] Future Scheduled 2021 Screening for malignant [facility] Test 12:49:38 neoplasm of cervix of Medici ne (procedure) [code = 246408597] Future Scheduled 2021 FLU VACCINE > 6 MONTHS [facility] [employer] Test 12:49:38 [code = FLU VACCINE > 6 of M edicine MONTHS] Future Scheduled 2021 ZOSTER VACCINE (1 of 2) [facility] Test 12:49:38 [code = ZOSTER VACCINE of Me dicine (1 of 2)] Future Scheduled 2021 Screening for malignant [facility] Test 12:49:38 neoplasm of colon of Medicin e (procedure) [code = 484146283] Future Scheduled 2021 Screening for malignant [facility] Test 12:49:38 neoplasm of breast of Medici ne (procedure) [code = 667378499] Future Scheduled 2021 TETANUS SHOT (ADULT) [employer] [facility] [employer] Test 12:49:38 [code = TETANUS SHOT of Medi cine (ADULT)] Future Scheduled 2021 Hepatitis C screening [employer] Test 12:49:38 (procedure) [code = of Medic ine 146154587] Future Scheduled 2021 Human immunodeficiency [facility] [employer] Test 12:49:38 virus screening of Medicine (procedure) [code = 325792140] Future Scheduled 2021 Screening for malignant [facility] Test 12:49:38 neoplasm of cervix of Medici ne (procedure) [code = 604463070] Future Scheduled 2021 FLU VACCINE > 6 MONTHS [facility] [employer] Test 12:49:38 [code = FLU VACCINE > 6 of M edicine MONTHS] Future Scheduled 2021 ZOSTER VACCINE (1 of 2) [facility] Test 12:49:38 [code = ZOSTER VACCINE of Me dicine (1 of 2)] Future Scheduled 2021-07-17 Screening for malignant [employer] Test 10:50:40 neoplasm of colon of Medicin e (procedure) [code = 628762632] Future Scheduled 2021-07-17 Screening for malignant [employer] Test 10:50:40 neoplasm of breast of Medici ne (procedure) [code = 495344185] Future Scheduled 2021-07-17 TETANUS SHOT (ADULT) [facility] [facility] [employer] Test 10:50:40 [code = TETANUS SHOT of Medi cine (ADULT)] Future Scheduled 2021-07-17 Hepatitis C screening [employer] Test 10:50:40 (procedure) [code = of Medic ine 188907507] Future Scheduled 2021-07-17 Human immunodeficiency [facility] Test 10:50:40 virus screening of Medicine (procedure) [code = 866943561] Future Scheduled 2021-07-17 Screening for malignant [facility] Test 10:50:40 neoplasm of cervix of Medici ne (procedure) [code = 724660605] Future Scheduled 2021-07-17 FLU VACCINE > 6 MONTHS [facility] [employer] Test 10:50:40 [code = FLU VACCINE > 6 of M edicine MONTHS] Future Scheduled 2021-07-17 BMI FOLLOW UP PLAN [employer] Test 10:50:40 [code = BMI FOLLOW UP of Med icine PLAN] Future Scheduled PT INSTR GIVEN - Ordered: [facility] Test TOBACCO [code = NOCPT] 10/09/2020 of Me dicine Future Scheduled MAMMOGRAM ANNUAL [code [facility] Test = MAMMOGRAM ANNUAL] of Medic ine Future Scheduled TETANUS SHOT (ADULT) [employer] [facility] [employer] Test [code = TETANUS SHOT of Medi cine (ADULT)] Future Scheduled HEPATITIS C SCREENING [employer] Test [code = HEPATITIS C of Medic ine SCREENING] Future Scheduled HIV SCREENING [code = [employer] Test HIV SCREENING] of Medicine Future Scheduled CERVICAL CANCER [facility] Alfonso ledezma Test SCREENING 3 YEAR FOLLOW of M edicine UP [code = CERVICAL CANCER SCREENING 3 YEAR FOLLOW UP] Future Scheduled FLU VACCINE > 6 MONTHS [facility] Test [code = FLU VACCINE > 6 of M edicine MONTHS] Encounters Start End Encounter Admission Attending Care Care Encounter Source Date/Time Date/Time Type Type Clinicians Facility Department ID 2021-08-[address] [facility] Surgery [id number] [facility] 06:30:09 SAMER 2021-09-23 2021-09-23 [facility] [id number] [place] 00:00:00 00:00:00 MAV[facility] [address] 2021-09-23 2021-09-23 [facility] [id number] [address] [place] [address] 00:00:00 00:00:00 MAVIS [address] 2021-09-14 2021-09-14 ambulatory [facility] [id number] [facility] 2021-09-09 2021-09-09 ambulatory [facility] [id number] [facility] 2021-09-02 2021-09-02 Out[facility] [id number] [facility] 2021-09-01 2021-09-01 Out[facility] [id number] [facility] 2021-08-28 2021-08-28 Out[facility] [id number] [facility] 2021-08-20 2021-08-20 Out[facility] [id number] [facility] 2021-08-17 2021-08-17 Office BRODY TAMEZ [id number] [place] [address] 14:47:06 15:14:31 Visit SAMER AMBULATOR 350.1.13.21 College Y 0.2.7.2.686 of [id number] [facility] sang 805 e 2021-08-10 2021-08-10 Outpatient [facility] [id number] [facility]00 [facility] 2021-08-10 2021-08-10 Outpatient [facility] [id number] [facility] 00[facility]00 [facility] 2021-08-03 2021-08-03 Outpatient [facility] [id number] [facility] 00:00:00 00:00:00 2021-07-31 2021-07-31 Outpatient [facility] [id number] [facility] 00[facility]00 [facility] Clin[facility] 2021 2021 Outpatient [facility] [id number] [facility] 00:00:00 23:59:00 Miguel Medicin e 2021 2021 Office BRODY Tamez [id number] [facility] 12:34:26 13:04:26 Visit Samer Gamil AMBULATOR 350.1.13.21 College Y 0.2.7.2.686 of [id number] [facility] sang 805 e 2021 2021 Outpatient [facility] [id number] [facility] 00:00:00 00:00:00 2021 2021 Outpatient [facility] [id number] [facility] 00:00:00 00:00:00 2021 2021 Outpatient [facility] [id number] [facility] 00:00:00 00:00:00 2021-07-17 2021-07-17 Office BRODY Cao [id number] [facility] 11:00:00 12:00:00 Visit Jolene AMBULATOR 350.1.13.21 College Y 0.2.7.2.686 of [id number] [facility] sang 810 e 2021-05-01 2021-05-01 Outpatient [facility] [id number] [facility] 2021-04-13 2021-04-13 Outpatient [facility] [id number] [facility] 2021-03-27 2021-03-27 Outpatient [facility] [id number] [facility] 2021-03-04 2021-03-04 Outpatient XUAN, [facility] [id number] [facility] 09:27:48 09:43:02 JOLENE [facility] of Medicin e 2021-02-16 2021-02-16 Outpatient XUAN, [facility] [id number] [facility] 09:30:25 09:54:09 JOLENE [facility] Medicin e 2021-02-04 2021-02-04 Outpatient XUAN, [facility] [id number] [facility] 14:40:19 14:57:28 JOLENE Colleg [facility] Medicin e 2021-01-27 2021-01-27 Outpatient [facility] [id number] [facility] 2021-01-27 2021-01-27 Out[facility] [id number] [facility] 2021-01-24 2021-01-24 Outpatient [facility] [id number] [facility] 2021-01-09 2021-01-09 Outpatient [facility] [id number] [facility] 2021-01-07 2021-01-07 Outpatient XUAN, [facility] [id number] [facility] 09:28:50 09:55:15 JOLENE [facility] Medicin e 2020-12-10 2020-12-10 Outpatient BRODY CAO [facility] [id number] [facility] 14:28:59 14:55:01 JOLENE roman of Medicin e 2020-11-13 2020-11-13 Outpatient [facility] [id number] [facility] 2020-10-22 2020-10-22 Outpatient [facility] [id number] [facility] 2020-10-22 2020-10-22 Outpatient [facility] [id number] [facility] 2020-10-13 2020-10-13 Outpatient [facility] [id number] [facility] 2020-10-13 2020-10-13 Outpatient [facility] [id number] [facility] 2020-10-09 2020-10-09 Office Mattar, [facility] [id number] 08:04:19 09:04:19 Visit Samer Gamil AMBULATOR 350.1.13.21 Y 0.2.7.2.686 [id number] 2020-10-09 2020-10-09 Office Rudolphtar, [facility] [id number] [place] [address] 08:04:19 09:04:19 Visit Samer Gamil AMBULATOR 350.1.13.21 College Y 0.2.7.2.686 of [id number] Medi sang 800 e 2020-10-08 2020-10-08 Outpatient [facility] [id number] [facility] 2020-08-12 2020-08-12 Outpatient [facility] [id number] [facility] 2020-08-08 2020-08-08 Outpatient [facility] [id number] [facility] 00[facility]:00 [facility] 2020-07-15 2020-07-15 Outpatient Tayler Lestert [id number] 08:30:00 08:30:00 [facility] 2020-07-10 2020-07-10 [place] [facility] [id number] 08:52:00 08:52:00 [facility] 2020-06-24 2020-06-24 [place] [facility] [id number] 15:30:00 15:30:00 [employer] [facility] [employer] [facility] Results Test Test Test Results Result Source Description Time Comments Comments TISSUE EXAM 2021-08- Surgical Pathology Report 04 Case: [id number] 17:14:04 Authorizing Provider: Alyssa Tamez MD Collected: 08/04/2021 08:32 AM Ordering Location: [facility] PERI[facility] Received: 08/04/2021 10:02 AM SERVICES Pathologist: Lana Hui MD Specimen: Stomach, PARTIAL GASTRECTOMY STOMACH, PARTIAL GASTRECTOMY: - A PORTION OF GASTRIC BODY WITH NO SPECIFIC PATHOLOGIC CHANGES Signing Pathologist Direct Phone Line: [phone] signed by Lana Hui MD on 08/10/2021 [...] rugal folds. No discrete lesions are identified. Steel Grinder sections are submitted in A1-A2.SARINA Ochoa, HT ([facility]) POCT-GLUCOSE METER 2021-08-05 08:05:23 Test Item Value Reference Range Interpretation Comme nts POC-GLUCOSE METER (BEAKER) 106 mg/dL 70-110 : [facility] [address] [facility] (test code = 1538) [facility] X, [address]: Restaurant Cashier/Techni bryan ID = [id number] for JESSICA SALDANA POCT-GLUCOSE [id number] 21:44:33 Test Item Value Reference Range Interpretation Comments POC-GLUCOSE METER 113 mg/dL 70-110 H : TESTED A T [facility] [address] (BEAKER) (test code = [facility], 1538) [address]: Restaurant Cashier/Techni bryan ID = [id number] for SHAHLA MCPHERSON POCT-GLUCOSE [id number] 16:59:35 Test Item Value Reference Range Interpretation Comments POC-GLUCOSE METER 151 mg/dL 70-110 H : TESTED A T [facility] (BEAKER) (test code = [facility], 153) [address]: Restaurant Cashier/Techni bryan ID = [id number] for An toine, Peggy POCT-GLUCOSE [id number] 13:26:55 Test Item Value Reference Range Interpretation Comments POC-GLUCOSE METER 169 mg/dL 70-110 H : [facility] (BEAKER) (test code = [facility], 153) [id number]: Restaurant Cashier/Techni bryan ID = [id number] for An toine, Peggy POCT-GLUCOSE [id number] 12:17:26 Test Item Value Reference Range Interpretation Comments POC-GLUCOSE METER 161 mg/dL 70-110 H : TESTED A T [facility] (BEAKER) (test code = [facility], 153) [id number]: Restaurant Cashier/Techni bryan ID = [id number] for SUNG MARIE URINALYSIS W/ REFLEX URINE [id number] 08:05:03 Test Item Value Reference Range Interpretation [...] = 1521) SOURCE(BEAKER) (test code = 2795) Restaurant Cashier ID - [auto]Restaurant Cashier ID - techSARS-COV2/RT-PCR ([facility]) 2021 23:45:05 Test Item Value Reference Range Interpretation Comments SARS-COV2/RT-PCR (test code = Negative Negative 7261060) Negative result for this test determines that [...] the Parks SARS-CoV-2 assay.Fact Sheet for Healthcare Providers:https://www.Wireless Tech.parks/kaylee/RT SARS-CoV-2 HCP Fact Sheet 51- 799117.pdfFact Sheet for Healthcare Patients:https://www.Wireless [employer].Juice[employer]/kaylee/RT SARS-CoV-2 Patient Fact Sheet EN 51-353524A7.kjpKAXWUXILTO2781-91-10 12:32:40 Test Item Value Reference Range Interpretation Comments CREATININE (BEAKER) 0.61 mg/dL 0.57-1.25 (test code = 358) EGFR (BEAKER) (test 104 mL/min/1.73 ESTIM ATED GFR IS code = 1092) sq m NOT ACCURATE CREATININE CLEARANCE IN PREDICTING GLOMERULAR FILTRATION RATE . ESTIMATED GFR I S NOT APPLICABLE FOR DIALYSIS PATIEN TS. Restaurant Cashier ID - DOMINICOBDULIA [id number] 12:32:40 Test Item Value Reference Range Interpretation Comments GLUCOSE RANDOM (BEAKER) (test code 147 mg/dL 70-105 H = 652) Restaurant Cashier ID - TYLOR [id number] 12:32:39 Test Item Value Reference Range Interpretation Comments BLOOD UREA NITROGEN (BEAKER) (test 11 mg/dL 7-21 code = 354) Restaurant Cashier ID - DOMINICOBDULIA [id number] 12:32:39 Test Item Value Reference Range Interpretation Comments SODIUM (BEAKER) (test code = 381) 142 meq/L 136-145 POTASSIUM (BEAKER) (test code = 4.0 meq/L 3.5-5.1 379) CHLORIDE (BEAKER) (test code = 382) 106 meq/L 98-107 CO2 (BEAKER) (test code = 355) 27 meq/L 22-29 Restaurant Cashier ID - TYLOR [id number] 12:13:22 Test Item Value Reference Range Interpretation Comments HEMOGLOBIN (OSIEL) (test code = 11.8 GM/DL 11.2-15.7 410) Restaurant Cashier ID - [id number]-COV2/RT-PCR ([facility])2020-05-12 19:10:00 Test Item Value Reference Range Interpretation Comments SARS-COV2/RT-PCR (test code = Positive Not Detected, Negative A A [id number]) SARS-COV-2 PERFORMING LAB [facility] (test code = 4120118) Results are for the detection of SARS-CoV-2 [...] 564(g) of the Act.Fact Sheet for Healthcare Providers:https://www.Adeptence.Resort Gems/sites/default/files/product/d ocuments/Rylo_Ipofk_RH_Qfoxytnag_Iszy_PPJY-QlG-3.pdfFact Sheet for Healthcare Patients:https://www.Tastemade.[employer]/sites/default/files/product/documents/Fact_Sheet_Patients_Lyra_SARS-CoV -2.pdfPerforming Laboratory:[facility] [place] [address]
--- NOTE | 2021-11-02 18:35 | EDPHYS ---
Physician Documentation [facility] – [place], [place] Name: Ailin Dickson Age: 51 yrs Sex: Female : 1970 Arrival Date: 11/02/2021 Time: 17:21 Bed 2 Private MD: ED Physician Jean-Paul Reyes HPI: 11/02 18:21 This 51 yrs old Unknown Female presents to ER via Unassigned with complaints of DVT. vijay 18:21 The patient or guardian complains of decreased range of motion, pain. The symptoms are vijay located on the right jaw. Onset: The symptoms/episode began/occurred 3 day(s) ago. Context: The problem was sustained at home, The neck injury/problem resulted from from unknown cause. Associated signs and symptoms: The patient has no apparent associated signs or symptoms. The pain does not radiate. 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 - Social history:: Smoking status: Patient denies any tobacco usage or history of. - Family history:: not pertinent. ROS: 18:23 Constitutional: Negative for fever, chills, and weight loss, Eyes: Negative for injury, vijay pain, redness, and discharge, Cardiovascular: Negative for chest pain, palpitations, and edema, Respiratory: Negative for shortness of breath, cough, wheezing, and pleuritic chest pain, Abdomen/GI: Negative for abdominal pain, nausea, vomiting, diarrhea, and constipation, Back: Negative for injury and pain, : Negative for injury, bleeding, discharge, and swelling, MS/Extremity: Negative for injury and deformity, Skin: Negative for injury, rash, and discoloration, Neuro: Negative for headache, weakness, numbness, tingling, and seizure, Psych: Negative for depression, anxiety, suicide ideation, homicidal ideation, and hallucinations, Allergy/Immunology: Negative for hives, rash, and allergies, Endocrine: Negative for neck swelling, polydipsia, polyuria, polyphagia, and marked weight changes. 18:23 ENT: Positive for 18:23 Neck: Positive for pain with movement, pain at rest, swelling, tenderness, of the right supraclavicular area, right clavicle and anterior aspect of right upper chest. Exam: 18:23 Constitutional: This is a well developed, well nourished patient who is awake, alert, vijay and in no acute distress. Head/Face: Normocephalic, atraumatic. Eyes: Pupils equal round and reactive to light, extra-ocular motions intact. Lids and lashes normal. Conjunctiva and sclera are non-icteric and not injected. Cornea within normal limits. Periorbital areas with no swelling, redness, or edema. ENT: Nares patent. No nasal discharge, no septal abnormalities noted. Tympanic membranes are normal and external auditory canals are clear. Oropharynx with no redness, swelling, or masses, exudates, or evidence of obstruction, uvula midline. Mucous membranes moist. Chest/axilla: Normal chest wall appearance and motion. Nontender with no deformity. No lesions are appreciated. Cardiovascular: Regular rate and rhythm with a normal S1 and S2. No gallops, murmurs, or rubs. Normal PMI, no JVD. No pulse deficits. Respiratory: Lungs have equal breath sounds bilaterally, clear to auscultation and percussion. No rales, rhonchi or wheezes noted. No increased work of breathing, no retractions or nasal flaring. Abdomen/GI: Soft, non-tender, with normal bowel sounds. No distension or tympany. No guarding or rebound. No evidence of tenderness throughout. Back: No spinal tenderness. No costovertebral tenderness. Full range of motion. Skin: Warm, dry with normal turgor. Normal color with no rashes, no lesions, and no evidence of cellulitis. MS/ Extremity: Pulses equal, no cyanosis. Neurovascular intact. Full, normal range of motion. Neuro: Awake and alert, GCS 15, oriented to person, place, time, and situation. Cranial nerves II-XII grossly intact. Motor strength 5/5 in all extremities. Sensory grossly intact. Cerebellar exam normal. Normal gait. 18:23 Neck: External neck: swelling, that is moderate, of the right sternocleidomastoid. Vital Signs: 19:56 BP 113 / 80; Pulse 98; Resp 18 S; Pulse Ox 100% on R/A; Weight 92.99 kg (R); Height 5 ae4 ft. 6 in. (167.64 cm) (R); 20:45 BP 109 / 69; Pulse 79; Resp 16; Pulse Ox 98% on R/A; ae4 20:50 Temp 97.9(O); ae4 21:03 BP 113 / 77; Pulse 88; Resp 18; Pulse Ox 97% on R/A; ae4 19:56 Body Mass Index 33.09 (92.99 kg, 167.64 cm) ae4 MDM: 18:11 Patient medically screened. vijay 19:43 Differential diagnosis: contusion, abrasion, Neck Contusion Osteoarthritis. Data vijay reviewed: vital signs, nurses notes, lab test result(s), EKG, radiologic studies, plain films. Data interpreted: Pulse oximetry: is not applicable for this patient encounter. on room air is 99 %. Test interpretation: by ED physician or midlevel provider: ECG, plain radiologic studies. Counseling: I had a detailed discussion with the patient and/or guardian regarding: the historical points, exam findings, and any diagnostic results supporting the discharge/admit diagnosis, lab results, radiology results, the need for further work-up and treatment in the hospital. 11/02 18:15 Order name: Basic Metabolic Panel [facility] 11/02 18:15 Order name: CBC with Diff [facility] 11/02 18:15 Order name: LFT's [facility] 11/02 18:15 Order name: Magnesium [facility] 11/02 18:15 Order name: NT PRO-BNP [facility] 11/02 18:15 Order name: PT-INR; Complete Time: 19:40 [facility] 11/02 18:15 Order name: Troponin (emerg Dept Use Only) [facility] 11/02 18:15 Order name: XRAY Chest (1 view); Complete Time: 19:40 [facility] 11/02 18:15 Order name: Ptt, Activated; Complete Time: 19:40 [facility] 11/02 18:15 Order name: Basic Metabolic Panel [facility] 11/02 18:15 Order name: CBC with Automated Diff; Complete Time: 19:40 [facility] 11/02 18:20 Order name: SARS-COV-2 RT PCR (Document "Date of Onset" if Symptomatic) [facility] 11/02 18:20 Order name: SARS-COV-2 RT PCR [facility] 11/02 18:15 Order name: EKG; Complete Time: 18:15 [facility] 11/02 18:15 Order name: Cardiac monitoring; Complete Time: 21:05 [facility] 11/02 18:15 Order name: EKG - Nurse/Tech; Complete Time: 21:05 [facility] 11/02 18:15 Order name: IV Saline Lock; Complete Time: 20:09 [facility] 11/02 18:15 Order name: Labs collected and sent; Complete Time: 20:09 [facility] 11/02 18:15 Order name: O2 Per Protocol; Complete Time: 20:09 [facility] 11/02 18:15 Order name: O2 Sat Monitoring; Complete Time: 20:09 [facility] 11/02 19:19 Order name: CONS Physician Consult [facility] Administered Medications: 19:55 Drug: NS 0.9% 1000 ml Route: IV; Rate: 125 ml/hr; Site: left antecubital; ae4 20:44 Follow up: IV Status: Infusion continued upon admission ae4 20:02 Drug: Zofran (Ondansetron) 4 mg Route: IVP; Site: left antecubital; ae4 20:43 Follow up: Response: No change in condition ae4 20:04 Drug: morphine 2 mg Route: IVP; Site: left antecubital; ae4 20:43 Follow up: Response: No adverse reaction; Pain is decreased ae4 20:16 Drug: Lovenox (enoxaparin) 1 mg/kg Route: Sub-Q; Site: left lower abdomen; ae4 20:44 Follow up: Response: No adverse reaction ae4 20:19 Not Given (Physician Discretion; Changed formm): Potassium Effervescent Tablet 25 mEq ae4 PO once; dissolve in 4 ounces of water or juice 20:25 Drug: Potassium Chloride 20 mEq Route: PO; ae4 20:45 Follow up: Response: No adverse reaction ae4 21:03 Drug: Pepcid (famotidine) 20 mg Route: IVP; Site: left antecubital; ae4 21:03 Follow up: Response: No adverse reaction ae4 Disposition Summary: 11/02/21 18:34 Hospitalization Ordered Hospitalization Status: Observation vijay Provider: Alejandro Elias cha Location: Telemetry/MedSurg (observation) vijay Condition: Stable vijay Problem: new vijay Symptoms: have improved vijay Bed/Room Type: Standard vijay Room Assignment: 218(11/02/21 20:38) cg Diagnosis - Acute embolism and thrombosis of unspecified internal jugular vein - port-a- cath, vijay stage 4 colon cancer - Hypokalemia vijay Forms: - Medication Reconciliation Form vijay - SBAR form vijay Signatures: Dispatcher [employer] EDJean-Paul Wilkinson MD MD cha Page, Corey, PA PA cp Garcia, Cindy, RN RN cg Edi Flowers RN RN ae4 Arjun Valentine PA PA ej Corrections: (The following items were deleted from the chart) 20:38 18:34 vijay cg
[2021-11-02 18:45] LABS: Hematocrit 37.5 % (36.0-45.0); Lymphocytes % 36.6 % (15.3-44.8); MPV 6.8 fL (7.6-11.3); RBC Red Blood Cell Count 4.81 M/uL (3.86-4.86)
[2021-11-02 18:51] LABS: Protime INR 1.08
[2021-11-02 19:08] LABS: Albumin 3.6 g/dL (3.4-5.0); BUN Blood Urea Nitrogen 8 mg/dL (7-18); Glucose Level 95 mg/dL (74-106); Potassium 3.1 mmol/L (3.5-5.1); Sodium Level 138 mmol/L (136-145)
--- NOTE | 2021-11-02 19:23 | RAD REPORT ---
EXAM DESCRIPTION: RAD - Chest Single View - 11/02/2021 7:14 pm CLINICAL HISTORY: COUGH Chest pain. COMPARISON: Chest Single View dated 09/24/2021; Chest Single View dated 09/21/2021; Chest Single Vie w dated 05/12/2020; CHEST PA AND LAT 2 VIEW dated 05/27/2012; 3D SCR MAYELIN BILAT W/CAD dated 08/18/2021; A bdomen Pelvis W Contrast dated 08/27/2021; Abdomen WWo Cont dated 08/27/2021; Liver Biopsy Procedur e dated 09/02/2021; 3D DIAG UNI F/U dated 09/07/2021; Thorax W/ Con dated 09/08/2021 FINDINGS: Portable technique limits examination quality. The lungs are grossly clear. The heart is normal in size. No displaced fractures.Right-sided port cat heter has tip superior vena cava.
[2021-11-02 19:51] LABS: ALT/SGPT 50 U/L (12-78); AST/SGOT 40 U/L (15-37); Alkaline Phosphatase 106 U/L (45-117); Bicarbonate 28 mmol/L (21-32); Bilirubin Direct 0.2 mg/dL (0-0.2); Bilirubin Total 0.6 mg/dL (0.2-1.0); NT PRO-BNP 38 pg/mL (<125); Protein, Total 8.1 g/dL (6.4-8.2); Troponin (Emerg Dept Use Only) < 0.02 ng/mL (0.0-0.045)
[2021-11-02] MEDS ORDERED: MORPHINE 2 MG/ML SYR ONE (19:56)
[2021-11-02] MEDS ORDERED: ONDANSETRON 4 MG/2 ML VIAL ONE (19:56)
[2021-11-02] MEDS ORDERED: NA CHLORIDE 0.9% 1,000 ML ONE (19:57)
[2021-11-02] MEDS ORDERED: POTASSIUM 25 MEQ EFFERV TAB ONE (19:57)
--- NOTE | 2021-11-02 20:02 | P.HP ---
Certification for Inpatient Patient admitted to: Inpatient With expected LOS: <2 Midnights Patient will require the following post-hospital care: None Practitioner: I am a practitioner with admitting privileges, knowledge of patient current condition, hospital course, and medical plan of care. Services: Services provided to patient in accordance with Admission requirements found in Title 42 Section 412.3 of the Code of Federal Regulations <Arjun Valentine - Last Filed: 11/02/21 19:57> Patient History Date of Service: 11/02/21 Primary Care Provider: John Reason for admission: DVT History of Present Illness: Ms. Dickson is a 51 yo F with stage IV colon cancer who presents with 4/10 pain and erythema on the right side of her neck since . Otherwise she feels at her baseline. Went to appointment today for radiation and ultrasound showed thrombus involving the right internal jugular vein and right venous catheter. Given full dose lovenox in the ED. US IMPRESSION: There is thrombosis involving the right internal jugular vein and right venous catheter. CXR IMPRESSION: The lungs are grossly clear. The heart is normal in size. No displaced fractures.Right-sided port catheter has tip superior vena cava. - Past Medical/Surgical History -: gastric bypass 07/2021 -: good -: appy -: C section -: portacath placement - Family History Family History: Reviewed- Non-Contributory - Social History Smoking Status: Current every day smoker Alcohol use: No CD- Drugs: No Caffeine use: Yes Place of Residence: Home <Velvet Valentinean S - Last Filed: 11/02/21 19:57> Date of Service: 11/02/21 <Alejandro Elias - Last Filed: 11/04/21 10:46> Allergies No Known Allergies Allergy (Verified 09/21/21 10:32) Home Medications: NK [No Home Meds] 11/03/21 Review of Systems 10-point ROS is otherwise unremarkable General: Unremarkable Eyes: Unremarkable ENT: Unremarkable Respiratory: Unremarkable Cardiovascular: Unremarkable Gastrointestinal: Nausea Genitourinary: Unremarkable Musculoskeletal: Neck Pain Integumentary: As per HPI Neurological: Unremarkable Lymphatics: Unremarkable <Velvet Valentineshaheed Barry - Last Filed: 11/02/21 19:57> Physical Examination - Physical Exam General: Alert, In no apparent distress HEENT: Atraumatic, PERRLA, Mucous membr. moist/pink, EOMI, Sclerae nonicteric Neck: Supple, 2+ carotid pulse no bruit, No LAD, Without JVD or thyroid abnormality Respiratory: Clear to auscultation bilaterally, Normal air movement Cardiovascular: Regular rate/rhythm, Normal S1 S2 Gastrointestinal: Normal bowel sounds, No tenderness Musculoskeletal: No tenderness Integumentary: Erythema Neurological: Normal speech, Normal strength at 5/5 x4 extr, Normal tone, Normal affect Lymphatics: No axilla or inguinal lymphadenopathy - Studies Laboratory Data (last 24 hrs) 11/02/21 18:25: PT 12.4, INR 1.08, APTT 32.2 11/02/21 18:25: WBC 5.60, Hgb 12.1, Hct 37.5, Plt Count 243 11/02/21 18:25: Sodium 138, Potassium 3.1 L, BUN 8, Creatinine 0.57, Glucose 95, Magnesium 2.0, Total Bilirubin 0.6, AST 40 H, ALT 50, Alkaline Phosphatase 106 <Arjun Valentine - Last Filed: 11/02/21 19:57> Assessment and Plan - Problems (Diagnosis) (1) Colon cancer metastasized to liver Current Visit: Yes Status: Chronic (2) History of gastric bypass Current Visit: Yes Status: Chronic (3) Port-A-Cath in place Current Visit: Yes Status: Chronic (4) DVT (deep venous thrombosis) Current Visit: Yes Status: Acute Qualifiers: DVT location: non-extremity vein Chronicity: acute Qualified Code(s): I82.90 - Acute embolism and thrombosis of unspecified vein (5) UTI (urinary tract infection) Current Visit: Yes Status: Acute Qualifiers: Urinary tract infection type: site unspecified Hematuria presence: with hematuria Qualified Code(s): N39.0 - Urinary tract infection, site not specified; R31.9 - Hematuria, unspecified - Plan surgery consulted, oncology consulted continue full dose lovenox continue IV ceftriaxone, urine culture pending continue potassium replacement continue home medications blood glucose monitoring ACHS continue antiemetics as needed Discharge Plan: Home Plan to discharge in: 48 Hours - Advance Directives Does patient have a Living Will: No Does patient have a Durable POA for Healthcare: No - Code Status/Comfort Care Code Status Assessed: Yes (full code ) Critical Care: No Time Spent Managing Pts Care (In Minutes): 70 <Arjun Valentine - Last Filed: 11/02/21 19:57> - Problems (Diagnosis) (1) Deep vein thrombosis, upper right extremity Current Visit: Yes Status: Acute (2) Internal jugular vein thrombosis Current Visit: Yes Status: Acute (3) Colon cancer metastasized to liver Current Visit: Yes Status: Chronic (4) History of gastric bypass Current Visit: Yes Status: Chronic (5) Port-A-Cath in place Current Visit: Yes Status: Chronic <Alejandro Elias - Last Filed: 11/04/21 10:46> Date of Service: 11/02/21 Subjective Agree with HPI as mentioned above Review of Systems 10-point ROS is otherwise unremarkable Physical Examination - Vital Signs Reviewed - Physical Exam General: Alert, In no apparent distress, Oriented x3 Respiratory: Clear to auscultation bilaterally, Normal air movement Cardiovascular: Regular rate/rhythm, Normal S1 S2, No murmurs Gastrointestinal: Normal bowel sounds, Soft and benign, Non-distended, No tenderness Musculoskeletal: No clubbing, No swelling, No tenderness Neurological: Normal strength at 5/5 x4 extr, Sensation intact, Cranial nerves 3-12 intact Assessment & Plan - Problems (Diagnosis) (1) Deep vein thrombosis, upper right extremity Current Visit: Yes Status: Acute (2) Internal jugular vein thrombosis Current Visit: Yes Status: Acute (3) Colon cancer metastasized to liver Current Visit: Yes Status: Chronic (4) History of gastric bypass Current Visit: Yes Status: Chronic (5) Port-A-Cath in place Current Visit: Yes Status: Chronic - Plan Agree with plan of care as mentioned below: 1. Continue with anti coagulation 2. NPO after midnight 3. Remove Port-A-Cath in a.m. 4. IV hydration 5. Pain control 6. GI and DVT prophylaxis <Alejandro Elias - Last Filed: 11/04/21 10:46>
[2021-11-02] MEDS ORDERED: ENOXAPARIN 100 MG/ML SYR SQ ONE (20:14)
[2021-11-02] MEDS ORDERED: POTASSIUM CL SA 10 MEQ TAB PO ONE ×2 (20:16→21:46)
[2021-11-02] MEDS ORDERED: FAMOTIDINE 20 MG/2 ML VIAL IV ONE (21:00)
--- NOTE | 2021-11-02 21:24 | ER ---
Nurse's Notes [facility] Name: Ailin Dickson Age: 51 yrs Sex: Female : 1970 Arrival Date: 11/02/2021 Time: 17:21 Bed 2 Private MD: Diagnosis: Acute embolism and thrombosis of unspecified internal jugular [id number]-[id number]- cath, stage 4 colon cancer;Hypokalemia Presentation: 11/02 20:21 Chief complaint: Patient states: Patient had radiation therapy treatment today, ae4 mentioned she has soreness to the right side of her neck. Patient states she was diagnosed with a thrombus on her right internal jugular, and vena cava as well. Coronavirus screen: Vaccine status: Patient reports receiving the 2nd dose of the covid vaccine. Date November 21, 2020. Ebola Screen: Patient denies travel to an Ebola-affected area in the 21 days before illness onset. No symptoms or risks identified at this time. Initial Sepsis Screen: Does the patient meet any 2 criteria? No. Patient's initial sepsis screen is negative. Does the patient have a suspected source of infection? No. Patient's initial sepsis screen is negative. Risk Assessment: Do you want to hurt yourself or someone else? Patient reports no desire to harm self or others. Onset of symptoms was October 26, 2021. 20:21 Acuity: MADDI 2 ae4 20:21 Method Of Arrival: Ambulatory ae4 Triage Assessment: 20:27 General: Appears in no apparent distress. comfortable, obese, Behavior is calm, ae4 cooperative. Pain: Complains of pain in right sternocleidomastoid. EENT: No signs and/or symptoms were reported regarding the EENT system. Neuro: Level of Consciousness is awake, alert, obeys commands, Oriented to person, place, time, situation, Appropriate for age. Cardiovascular: Patient's skin is warm and dry. Respiratory: Airway is patent Respiratory effort is even, unlabored, Respiratory pattern is regular, symmetrical. GI: Abdomen is round obese. : No signs and/or symptoms were reported regarding the genitourinary system. Derm: Skin is pale. Musculoskeletal: No signs and/or symptoms reported regarding the musculoskeletal system. 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 - Social history:: Smoking status: Patient denies any tobacco usage or history of. - Family history:: not pertinent. Screenin:29 Abuse screen: Denies threats or abuse. Nutritional screening: No deficits noted. ae4 Tuberculosis screening: No symptoms or risk factors identified. Fall Risk None identified. Assessment: 20:47 Reassessment: Called #[phone] to give report. Receiving nurse states she is in a patient ae4 room, and will call back. 21:04 Reassessment: Called [phone], to give report to receiving nurse. Facilities Engineering Manager asks if ae4 nurse can call back. 21:22 Reassessment: Report given via telephone to MIREILLE Hernandez. ae4 Vital Signs: 19:56 BP 113 / 80; Pulse 98; Resp 18 S; Pulse Ox 100% on R/A; Weight 92.99 kg (R); Height 5 ae4 ft. 6 in. (167.64 cm) (R); 20:45 BP 109 / 69; Pulse 79; Resp 16; Pulse Ox 98% on R/A; ae4 20:50 Temp 97.9(O); ae4 21:03 BP 113 / 77; Pulse 88; Resp 18; Pulse Ox 97% on R/A; ae4 19:56 Body Mass Index 33.09 (92.99 kg, 167.64 cm) ae4 ED Course: 17:21 Patient arrived in ED. ds1 18:10 Jean-Paul Reyes MD is Attending Physician. vijay 18:27 Alejandro Elias MD is Hospitalizing Provider. vijay 19:14 XRAY Chest (1 view) In Process Unspecified. EDMS 20:00 Subhash Khan is Primary Nurse. al4 20:10 Inserted saline lock: 20 gauge in left antecubital area, using aseptic technique. al4 ,using aseptic technique. inserted by MIREILLE Blount. 20:27 Triage completed. ae4 20:29 Bed in low position. Call light in reach. Side rails up X 1. cafeteria monitor on. Pulse ae4 ox on. NIBP on. Warm blanket given. 20:30 Arm band placed on right wrist. EKG completed in triage. Results shown to . ae4 21:05 SARS-COV-2 RT PCR (Document "Date of Onset" if Symptomatic) Sent. ae4 21:15 No provider procedures requiring assistance completed. Patient admitted, IV remains in ae4 place. Administered Medications: 19:55 Drug: NS 0.9% 1000 ml Route: IV; Rate: 125 ml/hr; Site: left antecubital; ae4 20:44 Follow up: IV Status: Infusion continued upon admission ae4 20:02 Drug: Zofran (Ondansetron) 4 mg Route: IVP; Site: left antecubital; ae4 20:43 Follow up: Response: No change in condition ae4 20:04 Drug: morphine 2 mg Route: IVP; Site: left antecubital; ae4 20:43 Follow up: Response: No adverse reaction; Pain is decreased ae4 20:16 Drug: Lovenox (enoxaparin) 1 mg/kg Route: Sub-Q; Site: left lower abdomen; ae4 20:44 Follow up: Response: No adverse reaction ae4 20:19 Not Given (Physician Discretion; Changed formm): Potassium Effervescent Tablet 25 mEq ae4 PO once; dissolve in 4 ounces of water or juice 20:25 Drug: Potassium Chloride 20 mEq Route: PO; ae4 20:45 Follow up: Response: No adverse reaction ae4 21:03 Drug: Pepcid (famotidine) 20 mg Route: IVP; Site: left antecubital; ae4 21:03 Follow up: Response: No adverse reaction ae4 Outcome: 18:34 Decision to Hospitalize by Provider. vijay 21:16 Admitted to Med/surg accompanied by tech, via wheelchair, room 218, Report called to ae4 MIREILLE Hernandez 21:16 Condition: stable 21:23 Patient left the ED. ae4 Signatures: Dispatcher [employer] Jean-Paul Rosario MD MD cha Sanford, Demi ds1 Edi Flowers RN RN ae4 Subhash Khan4
[2021-11-02 21:46] VITALS: BMI 33.2
[2021-11-02] MEDS ORDERED: ACETAMINOPHEN 500 MG TAB PO PRN (21:46)
[2021-11-02] MEDS ORDERED: ONDANSETRON 4 MG/2 ML VIAL IV PRN (21:46)
[2021-11-02] MEDS: CEFTRIAXONE 1,000 MG in NA CHLORIDE 0.9% 50 ML IVPB SCH (22:22)
[2021-11-02 23:31] LABS: Urine Appearance CLOUDY (Clear); Urine Blood TRACE (Negative); Urine Color DK YELLOW (Yellow); Urine Glucose NEGATIVE (Negative); Urine Protein NEGATIVE (Negative); Urine pH 6.5 (5.0-7.0)
[2021-11-03 00:18] LABS: Urine Bilirubin NEGATIVE (Negative); Urine Microscopic Reflex ORDER UMIC
[2021-11-03 00:24] LABS: Urine Bacteria 20-50 /HPF (<20); Urine RBC <5 /HPF (NONE SEEN)
[2021-11-03 00:25] LABS: Urine Mucus HEAVY /HPF (NONE SEEN)
[2021-11-03] MEDS: MORPHINE 2 MG/ML SYR IV PRN ×3 (00:30→19:53)
[2021-11-03 04:13] LABS: Absolute Lymphocytes (CBC) 2.6 K/uL (0.7-4.9); Hematocrit 32.2 % (36.0-45.0); Lymphocytes % 45.9 % (15.3-44.8); MPV 7.3 fL (7.6-11.3); RBC Red Blood Cell Count 4.13 M/uL (3.86-4.86)
[2021-11-03 04:29] LABS: ALT/SGPT 40 U/L (12-78); AST/SGOT 30 U/L (15-37); Albumin 2.6 g/dL (3.4-5.0); Alkaline Phosphatase 84 U/L (45-117); BUN Blood Urea Nitrogen 7 mg/dL (7-18); Bicarbonate 28 mmol/L (21-32); Bilirubin Total 0.4 mg/dL (0.2-1.0); Glucose Level 116 mg/dL (74-106); Magnesium 2.2 mg/dL (1.8-2.4); Phosphorus 3.1 mg/dL (2.5-4.9); Potassium 3.4 mmol/L (3.5-5.1); Protein, Total 6.5 g/dL (6.4-8.2); Sodium Level 140 mmol/L (136-145)
[2021-11-03] MEDS ORDERED: CEFTRIAXONE 1000 MG/VIAL ONE (07:54)
[2021-11-03] MEDS ORDERED: NA CHLORIDE 0.9% 0 ML ONE (07:56)
[2021-11-03] MEDS: CEFTRIAXONE 1,000 MG in NA CHLORIDE 0.9% 50 ML IVPB SCH (08:48)
[2021-11-03] MEDS: PROMETHAZINE INJ 25 MG/ML AMP IV PRN ×2 (08:49→19:53)
[2021-11-03] MEDS: ENOXAPARIN 100 MG/ML SYR SQ SCH ×2 (08:49→19:53)
[2021-11-03] MEDS ORDERED: POTASSIUM CL SA 10 MEQ TAB PO ONE ×2 (09:00→14:53)
[2021-11-03] MEDS ORDERED: MAGNES/ALUMIN/SIMET 30ML UCUP PO ONE (13:31)
[2021-11-04] MEDS: MORPHINE 2 MG/ML SYR IV PRN (06:23)
[2021-11-04] MEDS: PROMETHAZINE INJ 25 MG/ML AMP IV PRN (06:23)
[2021-11-04 06:32] LABS: Absolute Lymphocytes (CBC) 1.9 K/uL (0.7-4.9); Hematocrit 33.1 % (36.0-45.0); Lymphocytes % 40.5 % (15.3-44.8); MPV 6.7 fL (7.6-11.3); RBC Red Blood Cell Count 4.23 M/uL (3.86-4.86)
[2021-11-04 06:45] LABS: BUN Blood Urea Nitrogen 5 mg/dL (7-18); Bicarbonate 26 mmol/L (21-32); Glucose Level 104 mg/dL (74-106); Magnesium 2.2 mg/dL (1.8-2.4); Potassium 3.7 mmol/L (3.5-5.1); Sodium Level 142 mmol/L (136-145)
[2021-11-04 07:51] LABS: Anisocytosis 2+; Blood Morphology Comment NOTED (NOT SEEN); Platelet Estimate ADEQ; White Blood Cell Scan OK (OK)
[2021-11-04] MEDS ORDERED: NA CHLORIDE 0.9% 1,000 ML ONE (08:15)
[2021-11-04] MEDS: CEFTRIAXONE 1,000 MG in NA CHLORIDE 0.9% 50 ML IVPB SCH (09:00)
[2021-11-04] MEDS ORDERED: POTASSIUM CL SA 10 MEQ TAB PO ONE (09:00)
[2021-11-04] MEDS ORDERED: propofoL 200 MG/20 ML VIAL IV ONE (09:29)
[2021-11-04] MEDS ORDERED: LIDOCAINE 2% MPF 5 ML VIAL ONE (09:29)
[2021-11-04] MEDS ORDERED: MIDAZOLAM HCL 2 MG/2 ML INJ ONE (09:29)
--- NOTE | 2021-11-04 10:03 | P.OP ---
Machine Sign Writer: Braxton AMIN Preoperative diagnosis: DVT RIJ Portacath Postoperative diagnosis: same Primary procedure: Removal Right Chest Portacath Anesthesia: MAC Estimated blood loss: min Specimen: Portacath for ID only Findings: as above Complications: None Transferred to: Recovery Room Condition: Good
[2021-11-04] MEDS ORDERED: CODEINE 30MG/APAP 300MG TAB PO PRN (10:10)
--- NOTE | 2021-11-04 10:23 | PREOPCON ---
Date of Consultation: 11/02/2021 Reason For Consultation: The patient needs the Port-A-Cath removed. History Of Present Illness: The patient is a 51-year-old female with stage IV colorectal carcinoma i n whom I placed a Port-A-Cath about 6 weeks ago and by last week she started having pain and redness on the right side of her neck. She came to the ER and workup revealed a thrombosis of the right inter nal jugular vein and the right venous catheter. She was anticoagulated and I was consulted. Discuss ed the case in detail with Dr. Khan and we agreed that the port should be removed and she shoul d have another one placed in [place] by an interventional radiologist to make sure that the clot is n ot disturbed during placement. The patient is awake and alert. No fever or chills. No sore throat, runny nose, cough, headaches, or dizziness. No chest pain. Review of Systems: Otherwise unremarkable. Past Medical History: Stage IV colorectal carcinoma. Past Surgical History: Gastric bypass, cholecystectomy, appendectomy, , Port-A-Cath placeme nt. Allergies: NONE. Social History: The patient does smoke and has been counseled. Does not drink alcohol. Family History: Noncontributory. Physical Examination: Vital Signs: Vitals are stable. She is afebrile. General: She is awake, alert, and oriented x3. Head and neck: Cranial nerves 2 through 12 are grossly within normal limits. No neck masses. No JV D. Throat clear. Neck is supple. Chest: Clear. Heart: S1, S2. Abdomen: Soft. Extremities: Neurovascularly intact. The right neck region is tender on palpation. There is no war mth on the port site. Laboratory Data: Reviewed. INR is 1.08. Chemistry reviewed. Assessment: A 51-year-old female with stage IV colorectal carcinoma and deep venous thrombosis in th e right internal jugular vein. Recommendations: We will go ahead and remove the Port-A-Cath. The patient understands the risks, be nefits, and alternatives and agrees to procedure. The patient will be referred to the interventional radiologist in [place] for placement of a new one. /MODL Voice ID: [id number] Report ID: [id number]
[2021-11-04 10:25] VITALS: O2SAT 98
--- NOTE | 2021-11-04 10:44 | P.PN ---
Subjective Date of Service: 11/03/21 Patient denies any new complaints. Spoke with General surgery and Oncology. Remove Port-A-Cath in a.m.. Review of Systems 10-point ROS is otherwise unremarkable Physical Examination - Vital Signs Temperature: 97.1 F Blood Pressure: 94/64 Pulse: 66 Respirations: 16 Pulse Ox (%): 96 - Physical Exam General: Alert, In no apparent distress, Oriented x3 HEENT: Atraumatic, PERRLA, EOMI Neck: Supple, JVD not distended Respiratory: Clear to auscultation bilaterally, Normal air movement Cardiovascular: Regular rate/rhythm, Normal S1 S2, No murmurs Gastrointestinal: Normal bowel sounds, Soft and benign, Non-distended, No tenderness Musculoskeletal: No clubbing, No swelling, No tenderness Integumentary: No rashes Neurological: Normal strength at 5/5 x4 extr, Sensation intact, Cranial nerves 3-12 intact - Studies Medications List Reviewed: Yes Assessment & Plan - Problems (Diagnosis) (1) Deep vein thrombosis, upper right extremity Current Visit: Yes Status: Acute (2) Internal jugular vein thrombosis Current Visit: Yes Status: Acute (3) Colon cancer metastasized to liver Current Visit: Yes Status: Chronic (4) History of gastric bypass Current Visit: Yes Status: Chronic (5) Port-A-Cath in place Current Visit: Yes Status: Chronic - Plan Plan: 1. Continue with anti coagulation 2. NPO after midnight 3. Remove Port-A-Cath in a.m. 4. IV hydration 5. Pain control 6. GI and DVT prophylaxis Discharge Plan: Home Plan to discharge in: Greater than 2 days - Advance Directives Does patient have a Living Will: No Does patient have a Durable POA for Healthcare: No
--- NOTE | 2021-11-04 10:49 | P.PN ---
Date of Service: 11/04/21 Subjective Patient doing well. Resume anti coagulation this evening. Review of Systems 10-point ROS is otherwise unremarkable Physical Examination - Vital Signs Reviewed - Physical Exam General: Alert, In no apparent distress, Oriented x3 Respiratory: Clear to auscultation bilaterally, Normal air movement Cardiovascular: Regular rate/rhythm, Normal S1 S2, No murmurs Gastrointestinal: Normal bowel sounds, Soft and benign, Non-distended, No tenderness Musculoskeletal: No clubbing, No swelling, No tenderness Neurological: Normal strength at 5/5 x4 extr, Sensation intact, Cranial nerves 3-12 intact Assessment & Plan - Problems (Diagnosis) (1) Deep vein thrombosis, upper right extremity Current Visit: Yes Status: Acute (2) Internal jugular vein thrombosis Current Visit: Yes Status: Acute (3) Colon cancer metastasized to liver Current Visit: Yes Status: Chronic (4) History of gastric bypass Current Visit: Yes Status: Chronic (5) Port-A-Cath in place Current Visit: Yes Status: Chronic - Plan Continue with plan of care as mentioned below: 1. Continue with anti coagulation 2. Resume anti coagulation tonight 3. Status post Port-A-Cath removal 4. IV hydration 5. Pain control 6. GI and DVT prophylaxis Discharge Plan: Home Plan to discharge in: Greater than 2 days - Advance Directives Does patient have a Living Will: No Does patient have a Durable POA for Healthcare: No
--- NOTE | 2021-11-04 10:56 | OP ---
Date of Procedure: 11/04/2021 Surgeon: Tee Bojorquez MD Photography Editor: Braxton Sorto, surgical garment inspector. Preoperative Diagnosis: Deep vein thrombosis, right IJ Port-A-Cath. Postoperative Diagnosis: Deep vein thrombosis, right IJ Port-A-Cath. Procedure: Removal of right chest Port-A-Cath. Estimated Blood Loss: Minimal. Specimens: Port-A-Cath device for identification Findings: As above. Anesthesia: MAC. Complications: None. Disposition: The patient tolerated the procedure in stable condition and taken to Recovery in good g eneral condition. Procedure In Detail: The patient was brought to the OR and placed in supine position. MAC anesthesi a was begun. The patient was prepped and draped in the usual sterile fashion. Marcaine 0.5% infiltr ated locally. A 15 blade was used to make a 2 cm incision over the previous incision on the Port-A-C ath device. Subcutaneous tissue was divided. Port-A-Cath device identified and freed from surroundi ng tissue with sharp and blunt dissection removed and sent to the pathology for identification. Woun d irrigated. Bleeding controlled with cautery. A 3-0 chromic used to approximate the subcutaneous tissue and close the skin. Sterile dressing applied. The patient was awakened and taken to Recovery in good general condition. /MODL Voice ID: [id number] Report ID: [id number]
--- NOTE | 2021-11-04 16:14 | P.DS ---
Discharge Date: 11/04/21 Primary Care Provider: John Disposition: ROUTINE DISCHARGE Discharge Condition: GOOD Reason for Admission: DVT - Problems (1) Deep vein thrombosis, upper right extremity Current Visit: Yes Status: Acute (2) Internal jugular vein thrombosis Current Visit: Yes Status: Acute (3) Colon cancer metastasized to liver Current Visit: Yes Status: Chronic (4) History of gastric bypass Current Visit: Yes Status: Chronic (5) Port-A-Cath in place Current Visit: Yes Status: Chronic Brief History of Present Illness: Ms. Dickson is a 51 yo F with stage IV colon cancer who presents with 4/10 pain and erythema on the right side of her neck since . Otherwise she feels at her baseline. Went to appointment today for radiation and ultrasound showed thrombus involving the right internal jugular vein and right venous catheter. Given full dose lovenox in the ED. Hospital Course: Patient had the Port-A-Cath removed. Patient will be discharged on Lovenox per Oncology. At this time, patient is stable for discharge home. Vital Signs/Physical Exam: Temp Pulse Resp BP Pulse Ox 98.2 F 71 18 110/74 97 11/04/21 12:00 11/04/21 12:00 11/04/21 12:00 11/04/21 12:00 11/04/21 12:00 General: Alert, In no apparent distress, Oriented x3 Laboratory Data at Discharge: WBC 4.70 K/uL (4.3-10.9) D 11/04/21 06:10 Hgb 10.7 g/dL (12.0-15.0) L 11/04/21 06:10 Hct 33.1 % (36.0-45.0) L 11/04/21 06:10 Plt Count 208 K/uL (152-406) 11/04/21 06:10 PT 12.4 SECONDS (9.5-12.5) 11/02/21 18:25 INR 1.08 11/02/21 18:25 APTT 32.2 SECONDS (24.3-36.9) 11/02/21 18:25 Sodium 142 mmol/L (136-145) 11/04/21 06:10 Potassium 3.7 mmol/L (3.5-5.1) 11/04/21 06:10 BUN 5 mg/dL (7-18) L 11/04/21 06:10 Creatinine 0.42 mg/dL (0.55-1.3) L 11/04/21 06:10 Glucose 104 mg/dL (74-106) 11/04/21 06:10 Phosphorus 3.1 mg/dL (2.5-4.9) 11/03/21 03:30 Magnesium 2.2 mg/dL (1.8-2.4) 11/04/21 06:10 Total Bilirubin 0.4 mg/dL (0.2-1.0) 11/03/21 03:30 AST 30 U/L (15-37) 11/03/21 03:30 ALT 40 U/L (12-78) 11/03/21 03:30 Alkaline Phosphatase 84 U/L (45-117) 11/03/21 03:30 Home Medications: Enoxaparin Sodium [Lovenox 100 MG INJ*] 90 mg SQ Q12HR #60 syr 11/04/21 New Medications: Enoxaparin Sodium [Lovenox 100 MG INJ*] 90 mg SQ Q12HR #60 syr Physician Discharge Instructions: OK TO DC IV AND DC HOME FOLLOW-UP WITH PRIMARY CARE PROVIDER IN 1-2 WEEKS FOLLOW-UP WITH Oncology IN 1-2 WEEKS RETURN TO THE ER IF symptoms worsen CALL or TEXT DR. JIMENEZ AT [phone] IF ANY QUESTIONS REGARDING HOSPITAL STAY. PLEASE CALL THE FLOOR AT [phone] IF ANY MEDICATION OR NURSING QUESTIONS. Diet: Regular Activity: Fall precautions Followup: Marco Antonio Lopez, [Primary Care Provider] -
[2021-11-04 17:44] VITALS: BP 118/75; TEMP 98
[2021-11-04] MEDS ORDERED: ENOXAPARIN 100 MG/ML SYR SQ ONE (18:00)
== END 2021-11-04 18:05 | disposition home or self-care (01) | DRG 315 ==
LOC: ER 17:11 → ERHOLD 19:41 → 2ND 20:43
PROVIDERS: ADMIT Hospitalist; ATTEND Hospitalist
PROC: 0JPV3WZ Removal of Totally Implantable Vascular Access Device from Upper Extremity Subcutaneous Tissue and Fascia, Percutaneous Approach (ICD-10-PCS; principal; 2021-11-04 09:30)
DX: T82.868A Thrombosis due to vascular prosthetic devices, implants and grafts, initial encounter (principal); I82.C11 Acute embolism and thrombosis of right internal jugular vein; C18.9 Malignant neoplasm of colon, unspecified; C78.7 Secondary malignant neoplasm of liver and intrahepatic bile duct; Z20.822 Contact with and (suspected) exposure to COVID-19; Z98.84 Bariatric surgery status
CPT/HCPCS: 36415; 71045; 77336; 77387; 77412; 80048; 80053; 80076; 81003; 81015; 82947; 83735; 83880; 84100; 84132; 84484; 85025; 85610; 85730; 87086; 87088; 88300; 93005; 93971; 96361; 96372; 96374; 96375; 99285; J1650; J2250; J2270; J2405; J2550; J2704; J7030; U0003

== ENCOUNTER 2021-11-16 13:57 | Emergency (ER) | payer BC ==
--- OUTSIDE RECORDS SUMMARY | 2021-11-16 14:01 | XMS REPORT | Continuity of Care Document ---
:1970 Author Organization [facility] t Address [address] Jean Baptiste. [address] [place] [address] Care Team Providers Name Role Phone NGOZI TAMEZ Attending Clinician Unavailable NIR HOOKS Attending Clinician Unavailable NGOZI TAMEZ Attending Clinician Unavailable JORGE Attending Clinician Unavailable Ngozi Tamez MD Attending Clinician Kiley PALENCIA Attending Clinician KILEY Attending Clinician Unavailable NGOZI TAMEZ Admitting Clinician Unavailable Payers Payer Name Policy Type Policy Number Effective Date Expiration Date Asha haley [employer]IG[employer] [id number] 2018 00:00:00 HMO/POS/OPEN ACCESS OPEN ACCESS [id number] HMO/POS/EPO/PPO - AETNA NETWORK OPEN [id number] ACCESS - CIGNA CVCP-AETNA [id number] AETNA [facility] [id number] 2020 00:00:00 ACCESS Problems This patient has no known problems. Allergies, Adverse Reactions, Alerts Allergy Allergy Status Severity Reaction(s) Onset Inactive Treating Comm ents Source Name Type Date Date Clinician NO KNOWN Allergy Active [facility] Social History Social Habit Start Date Stop Date Quantity Comments Source History [facility] Alcohol Frequency of Medi cine History [facility] Alcohol Std Drinks of Med icine History [facility] Alcohol Binge of Medicine Exposure to Yes [facility] [place] e SARS-CoV-2 (event) of Med icine Alcohol intake 2021-08-17 2021-08-17 Current drinker [facility] 00:00:00 00:00:00 of alcohol of Medicine (finding) Alcohol Comment 2020-10-09 2020-10-[address] [facility] llege 00:00:00 00:00:00 of Medicine Tobacco use and 2020-10-09 2020-10-[address] [facility] exposure 00:00:00 00:00:00 of Medicine Sex Assigned At [address] [facility] 00:00:00 00:00:00 of Medicine Smoking Status Start Date Stop Date Source Never smoker [facility] o f Medicine Medications Ordered Filled Start Stop Current Ordering Indication Dosage Frequency Signature Comments Components Source Medication Medication Date Date Medication? Clinician (SIG) Name Name Vitamin D, 2020-11 Yes 1{capsu Take 1 [facility] 0-11 le} capsule by Co llwanda rol, 1.25 15:23: mouth of MG (10469 06 every 7 Medicin [place]) CAPS days. e pantoprazol 2020- No 20mg Take 1 [place] song e 07-30 Tablet by Laurie (PROTONIX) 00:00: 05:59 mouth of 20 MG 00 :00 daily for Medicin tablet 90 days. e Take everyday for 3 months pantoprazol 2020- No 20mg Take 1 [place] song e 07-30 Tablet by Laurie (PROTONIX) 00:00: 05:59 mouth of 20 MG 00 :00 daily for Medicin tablet 90 days. e Take everyday for 3 months pantoprazol 2020- No 20mg Take 1 [place] song e 07-30 Tablet by Laurie (PROTONIX) 00:00: 05:59 mouth of 20 MG [...] pain ondansetron 2020- No 4mg Take 1 [place] song (ZOFRAN-ODT 07-30 Tablet by Co llege [...] after surgery as needed for pain ondansetron No 4mg Take 1 [place] song (ZOFRAN-ODT 07-30 Tablet by Co llege [...] days- take as needed for nausea aprepitant No 40mg Take 1 [facility] or (EMEND) 40 07-30 capsule by Co llege MG capsule 00:00: 04:59 mouth once of 00 :00 for 1 Medicin dose. Take e 2 hours before surgery Scopolamine 2020- No 1{patch Place [address] [facility] 1 MG/3DAYS 07-30 } Patch onto Co llege [id number] 00:00: 04:59 the skin of 00 :00 once for 1 Medicin dose. e Apply behind ear. Remove after 3 days- take as needed for nausea Vitamin D, Yes [id number] TAKE 1 [facility] 6-03 CAPSULE BY Co michelee aurelia, 1.25 00:00: MOUTH of MG (93259 00 EVERY 7 Medicin [place]) CAPS DAYS e Vitamin D, Yes [id number] TAKE 1 [facility] 6-03 CAPSULE BY Co llege rol, 1.25 00:00: MOUTH of MG (29244 00 EVERY 7 Medicin [place]) CAPS DAYS e Vitamin D, Yes [id number] TAKE [address] [facility] Ergocalcife 6-03 CAPSULE BY Co llege rol, 1.25 00:00: MOUTH of MG (86587 00 EVERY 7 Medicin [place]) CAPS DAYS e Vitamin D, 2020- No [id number] TAKE [address] [facility] Ergocalcife 6-03 10-11 CAPSULE BY Alfonso moses, 1.25 00:00: 00:00 MOUTH of MG (49326 00 :00 EVERY 7 Medicin [place]) CAPS [...] e sertraline 2019-11 Yes 1{tbl} Take 1 [place] song (ZOLOFT) 1-09 Tablet by Colleg e 100 MG 00:00: mouth of tablet 00 daily. Medicin e sertraline 2019-11 Yes 1{tbl} Take 1 [place] song (ZOLOFT) 1-09 Tablet by Colleg e 100 MG 00:00: mouth of tablet 00 daily. Medicin e sertraline 2019-11 Yes 1{tbl} Take 1 [place] song (ZOLOFT) 1-09 Tablet by Colleg e 100 MG 00:00: mouth of tablet 00 daily. Medicin e sertraline 2019-11 Yes 1{tbl} Take 1 [place] song (ZOLOFT) 1-09 Tablet by Colleg e 100 MG 00:00: mouth of tablet 00 daily. Medicin e sertraline 2019-11 Yes 1{tbl} Take 1 [place] song (ZOLOFT) 1-09 Tablet by Colleg e [...] ns. Medicin CAROL 2 e SENSOR SYSTM) [facility] Continuous 2019-11- No 1{strip [address] [facility] Blood Gluc 0-12 07-30 } See Admin Col lege Sensor 00:00: 00:00 Instructio of (FREESTYLE 00 :00 ns. Medicin CAROL 2 e SENSOR SYSTM) [facility] Continuous 2019-11- No 1{strip [address] [facility] Blood Gluc 0-12 07-30 } See Admin Col lege Sensor 00:00: 00:00 Instructio of (FREESTYLE 00 :00 ns. Medicin CAROL 2 e SENSOR SYSTM) [facility] Atorvastati Atorvastati Yes Marco Antonio [address] [facility] [facility] Calcium n Calcium 9 [facility] - 00:00: [facility] 00 l [facility] Zoloft Zoloft Yes Marco Antonio Take 1/[address] 9[facility]08 Lopez tab QD x 1 [facility] - 00:00: week then Memoria 00 take 1 tab l QD [facility] Xigduo XR Xigduo XR 2020- No Marco Antonio [address] 9-08 12-06 [facility] - 00:00: 00:00 [facility] 00 :00 l [facility] Immunizations Ordered Filled Immunization Date Status Comments [facility] e Immunization Name Name PNEUMAVAX 23 PNEUMAVAX 23 2020-06-[address] Joanna es - 00:00:00 [facility] Vital Signs Vital Name Observation Time Observation Value Comments Source HEIGHT 2021-08-04 06:30:00 167.6 cm WEIGHT 2021-08-04 06:30:00 114.76 kg HEIGHT 2021-08-03 08:40:00 167 cm WEIGHT 2021-08-03 08:40:00 102 kg Systolic blood 2021-08-17 20:11:00 115 mm[Hg] [facility] of pressure Medicine Diastolic blood 2021-08-17 20:11:00 75 mm[Hg] [facility] pressure Medicine Heart rate 2021-08-17 20:11:00 65 /min [facility] Body temperature 2021-08-17 20:11:00 36.83 [facility] Body height 2021-08-17 20:11:[address] [facility] C ollege of Medicine Body weight 2021-08-17 20:11:[address] [facility] C ollege of Medicine BMI 2021-08-17 20:11:00 38.58 kg/m2 [facility] C ollege of Medicine HEIGHT 2021-08-04 06:30:00 167.6 cm WEIGHT 2021-08-04 06:30:00 114.76 kg HEIGHT 2021-08-03 08:40:00 167 cm WEIGHT 2021-08-03 08:40:00 102 kg Systolic blood 2021 17:49:00 116 mm[Hg] [facility] pressure Medicine Diastolic blood 2021 17:49:00 79 mm[Hg] [facility] of pressure Medicine Heart rate 2021 17:49:00 82 /min [facility] ollege of Medicine Body temperature 2021 17:49:00 36.56 [facility] Body height 2021 17:49:[address] [facility] C ollege of Medicine Body weight 2021 17:49:00 114.76 kg [facility] ollege of Medicine BMI 2021 17:49:00 40.84 kg/m2 [facility] ollege of Medicine Systolic blood 2020-10-09 14:14:00 117 mm[Hg] [facility] of pressure Medicine Diastolic blood 2020-10-09 14:14:00 77 mm[Hg] [facility] pressure Medicine Heart rate 2020-10-09 14:14:00 98 /min [facility] C ol[facility] of Medicine Body temperature 2020-10-09 14:14:00 36.83 [facility] Body height 2020-10-09 14:14:[address] [facility] C ol[facility] of Medicine Body weight 2020-10-09 14:14:[address] [facility] C ol[facility] of Medicine BMI 2020-10-09 14:14:00 38.64 kg/m2 [facility] C ol[facility] of Medicine Systolic blood 2020-10-09 14:14:00 117 mm[Hg] [facility] pressure Medicine Diastolic blood 2020-10-09 14:14:00 77 mm[Hg] [facility] pressure Medicine Heart rate 2020-10-09 14:14:00 98 /min [facility] Body temperature 2020-10-09 14:14:00 36.83 [facility] Body height 2020-10-09 14:14:00 167.6 cm [facility] Body weight 2020-10-09 14:14:00 108.591 kg [facility] BMI 2020-10-09 14:14:00 38.64 kg/m2 [facility] Procedures This patient has no known procedures. Plan of Care Planned Activity Planned Date Details Comments Source Future Scheduled 2021-08-17 BMI FOLLOW UP PLAN [facility] Test 15:15:29 [code = BMI FOLLOW UP of Med icine PLAN] Future Scheduled 2021-08-17 Screening for malignant [facility] Test 15:13:47 neoplasm of colon of Medicin e (procedure) [code = 853929408] Future Scheduled 2021-08-17 Screening for malignant [facility] Test 15:13:47 neoplasm of breast of Medici ne (procedure) [code = 249053316] Future Scheduled 2021-08-17 TETANUS SHOT (ADULT) [facility] Test 15:13:47 [code = TETANUS SHOT of Medi cine (ADULT)] Future Scheduled 2021-08-17 Hepatitis C screening [facility] Test 15:13:47 (procedure) [code = of Medic ine 463593714] Future Scheduled 2021-08-17 Human immunodeficiency [facility] Test 15:13:47 virus screening of Medicine (procedure) [code = 279973323] Future Scheduled 2021-08-17 Screening for malignant [facility] Test 15:13:47 neoplasm of cervix of Medici ne (procedure) [code = 042762687] Future Scheduled 2021-08-17 FLU VACCINE > 6 MONTHS [facility] Test 15:13:47 [code = FLU VACCINE > 6 of M edicine MONTHS] Future Scheduled 2021-08-17 ZOSTER VACCINE (1 of 2) [facility] Test 15:13:47 [code = ZOSTER VACCINE of Me dicine (1 of 2)] Future Scheduled 2021 BMI FOLLOW UP PLAN [employer] Test 12:51:47 [code = BMI FOLLOW UP of Med icine PLAN] Future Scheduled 2021 BMI FOLLOW UP PLAN [employer] Test 12:51:47 [code = BMI FOLLOW UP of Med icine PLAN] Future Scheduled 2021 Screening for malignant [facility] Test 12:49:38 neoplasm of colon of Medicin e (procedure) [code = 198120153] Future Scheduled 2021 Screening for malignant [facility] Test 12:49:38 neoplasm of breast of Medici ne (procedure) [code = 386613457] Future Scheduled 2021 TETANUS SHOT (ADULT) [place] [facility] [employer] Test 12:49:38 [code = TETANUS SHOT of Medi cine (ADULT)] Future Scheduled 2021 Hepatitis C screening [employer] Test 12:49:38 (procedure) [code = of Medic ine 317977981] Future Scheduled 2021 Human immunodeficiency [employer] Test 12:49:38 virus screening of Medicine (procedure) [code = 662472048] Future Scheduled 2021 Screening for malignant [facility] Test 12:49:38 neoplasm of cervix of Medici ne (procedure) [code = 073103457] Future Scheduled 2021 FLU VACCINE > 6 MONTHS [employer] Test 12:49:38 [code = FLU VACCINE > 6 of M edicine MONTHS] Future Scheduled 2021 ZOSTER VACCINE (1 of 2) [employer] Test 12:49:38 [code = ZOSTER VACCINE of Id dicine (1 of 2)] Future Scheduled 2021 Screening for malignant [employer] Test 12:49:38 neoplasm of colon of Medicin e (procedure) [code = 764261794] Future Scheduled 2021 Screening for malignant [employer] Test 12:49:38 neoplasm of breast of Medici ne (procedure) [code = 396102707] Future Scheduled 2021 TETANUS SHOT (ADULT) [place] [facility] [employer] Test 12:49:38 [code = TETANUS SHOT of Medi cine (ADULT)] Future Scheduled 2021 Hepatitis C screening [employer] Test 12:49:38 (procedure) [code = of Medic ine 481111104] Future Scheduled 2021 Human immunodeficiency [employer] Test 12:49:38 virus screening of Medicine (procedure) [code = 785996354] Future Scheduled 2021 Screening for malignant [facility] Test 12:49:38 neoplasm of cervix of Medici ne (procedure) [code = 856799104] Future Scheduled 2021 FLU VACCINE > 6 MONTHS [employer] Test 12:49:38 [code = FLU VACCINE > 6 of M edicine MONTHS] Future Scheduled 2021 ZOSTER VACCINE (1 of 2) [employer] Test 12:49:38 [code = ZOSTER VACCINE of Me dicine (1 of 2)] Future Scheduled 2021-07-17 Screening for malignant [facility] Test 10:50:40 neoplasm of colon of Medicin e (procedure) [code = 875059362] Future Scheduled 2021-07-17 Screening for malignant [facility] Test 10:50:40 neoplasm of breast of Medici ne (procedure) [code = 134210957] Future Scheduled 2021-07-17 TETANUS SHOT (ADULT) [place] [facility] [employer] Test 10:50:40 [code = TETANUS SHOT of Medi cine (ADULT)] Future Scheduled 2021-07-17 Hepatitis C screening [employer] Test 10:50:40 (procedure) [code = of Medic ine 038191165] Future Scheduled 2021-07-17 Human immunodeficiency [employer] Test 10:50:40 virus screening of Medicine (procedure) [code = 943700544] Future Scheduled 2021-07-17 Screening for malignant [employer] Test 10:50:40 neoplasm of cervix of Medici ne (procedure) [code = 258010364] Future Scheduled 2021-07-17 FLU VACCINE > 6 MONTHS [employer] Test 10:50:40 [code = FLU VACCINE > 6 of M edicine MONTHS] Future Scheduled 2021-07-17 BMI FOLLOW UP PLAN [employer] Test 10:50:40 [code = BMI FOLLOW UP of Med icine PLAN] Future Scheduled PT INSTR GIVEN - Ordered: [employer] Test TOBACCO [code = NOCPT] 10/09/2020 of Me dicine Future Scheduled MAMMOGRAM ANNUAL [code [employer] Test = MAMMOGRAM ANNUAL] of Medic ine Future Scheduled TETANUS SHOT (ADULT) [place] [facility] [employer] Test [code = TETANUS SHOT of Medi cine (ADULT)] Future Scheduled HEPATITIS C SCREENING [employer] Test [code = HEPATITIS C of Medic ine SCREENING] Future Scheduled HIV SCREENING [code = [employer] [facility] HIV SCREENING] of Medicine Future Scheduled CERVICAL CANCER [facility] Alfonso frankelge Test SCREENING 3 YEAR FOLLOW of M edicine UP [code = CERVICAL CANCER SCREENING 3 YEAR FOLLOW UP] Future Scheduled FLU VACCINE > 6 MONTHS [employer] Test [code = FLU VACCINE > 6 of M edicine MONTHS] Encounters Start End Encounter Admission Attending Care Care Encounter Source Date/Time Date/Time Type Type Clinicians Facility Department ID 2021-08-16 Inpatient JOI, [facility] Surgery [id number] [facility] 06:30:09 SAMER 2021-11-12 2021-11-12 Outpatient SAMUEL HOOKS MED [id number] [facility] 11:20:00 23:59:00 DAPHNEY 2021-11-05 2021-11-05 Outpatient BRODY TAMEZ BCGhulam [id number] [facility] 13:26:47 13:40:13 SAMER [facility] Medicin e 2021-09-23 2021-09-23 Outpatient [place] [id number] [address] [place] [address] 00:00:00 00:00:00 MAVIS [address] 2021-09-23 2021-09-23 Outpatient [place] [id number] [place] [address] 00:00:00 00:00:00 MAVIS [address] 2021-09-14 2021-09-14 [id number] 2021-09-09 2021-09-09 [id number] 2021-09-02 2021-09-02 [id number] 2021-09-01 2021-09-01 [facility] [id number] 00[facility] 2021-08-28 2021-08-28 [facility] [id number] [facility] 00:00:00 00[facility]00[facility] 2021-08-20 2021-08-20 [facility] [id number] [facility] 00[facility]00:00 00:00:00 [facility] 2021-08-17 2021-08-17 Office BRODY TAMEZ [id number] [place] [address] 14:47:06 15:14:31 Visit SAMER AMBULATOR 350.1.13.21 College Y 0.2.7.2.686 of [id number] Medi sang 805 e 2021-08-10 2021-08-10 [id number] 2021-08-10 2021-08-10 [facility] [id number] [facility] 00:00:00 00[facility]00[facility]00 [facility] 2021-08-03 2021-08-03 Outpatient [facility] [id number] [facility] 00:00:00 00:00:00 2021-07-31 2021-07-31 Outpatient [facility] [id number] [facility] 00:00:00 00:00:00 [facility] 2021 2021 Outpatient [facility] [id number] [address] [place] [address] 00:00:00 23:59:00 Matthias e 2021 2021 Office BRODY Tamez [id number] [facility] 12:34:26 13:04:26 Visit Samer Gamil AMBULATOR 350.1.13.21 College Y 0.2.7.2.686 of [id number] Medi sang 805 e 2021 2021 Outpatient [facility] [id number] [facility] 00:00:00 00:00:00 2021 2021 Outpatient [facility] [id number] [facility] 00:00:00 00:00:00 2021 2021 Outpatient [facility] [id number] [facility] 00:00:00 00:00:00 2021-07-17 2021-07-17 Office Efrenricardo [facility] [id number] [facility] 11:00:00 12:00:00 Visit Jolene AMBULATOR 350.1.13.21 College Y 0.2.7.2.686 [id number] [facility] 810 e 2021-05-01 2021-05-01 Out[facility] [id number] [facility] 2021-04-13 2021-04-13 [facility] [id number] [facility] 2021-03-27 2021-03-27 [facility] [id number] [facility] 2021-03-04 2021-03-04 Outpatient XUANTIGRE [facility] [id number] [facility] 09:27:48 09:43:02 JOLENE [facility]in e 2021-02-16 2021-02-16 Outpatient XUAN [facility] [id number] [facility] 09:30:25 09:54:09 JOLEEN [facility] [employer]in e 2021-02-04 2021-02-04 Outpatient [facility]UAN [facility] [id number] [facility] 14:40:19 14:57:28 JOLENE [facility] [employer] [facility] [employer] 2021-01-27 2021-01-27 Outpatient [facility] [id number] [facility] 2021-01-27 2021-01-27 [facility] [id number] [facility] 2021-01-24 2021-01-24 [facility] [id number] [facility] 2021-01-09 2021-01-09 [facility] [id number] [facility] 2021-01-07 2021-01-07 Outpatient KILEY CARLGhulam [facility] [id number] [facility] 09:28:50 09:55:15 JOLENE [facility]in e 2020-12-10 2020-12-10 Outpatient KILEY [facility] [id number] [facility] 14:28:59 14:55:01 JOLENE [employer]in e 2020-11-13 2020-11-13 Outpatient [facility] [id number] [facility] 2020-10-22 2020-10-22 Out[facility] [id number] [facility] 2020-10-22 2020-10-22 Out[facility] [id number] [facility] 2020-10-13 2020-10-13 Out[facility] [id number] [facility] 2020-10-13 2020-10-13 Out[facility] [id number] [facility] 2020-10-09 2020-10-09 Office Joi, [facility] [id number] [facility] 08:04:19 09:04:19 Visit Samer Gamil AMBULATOR 350.1.13.21 College Y 0.2.7.2.686 of [id number] Medi sang 800 e 2020-10-09 2020-10-09 Office Rudoplhbhavnar, [facility] [id number] 08:04:19 09:04:19 Visit Samer Gamil AMBULATOR 350.1.13.21 Y 0.2.7.2.686 [id number] 2020-10-08 2020-10-08 Outpatient [facility] [id number] [facility]00 [facility] 2020-08-12 2020-08-12 Outpatient [facility] [id number] [facility]00 [facility]es - [facility] Outpat[facility] Clinics 2020-08-08 2020-08-08 [facility] [id number] 00[facility]00:00 kes - [facility] Outpati ent Clinics 2020-07-15 2020-07-15 [facility] [id number] 08:30:00 08:30:00 IMASTE Cont[facility] 2020-07-10 2020-07-10 [facility] [id number] 08:52:00 08:52:00 t IMASTE Contor[facility] 2020-06-24 2020-06-24 [facility] [id number] 15:30:00 15:30:00 IMASTE [facility] Results Test Test Test Results Result Source Description Time Comments Comments TISSUE EXAM 2021-08- Surgical Pathology Report 04 Case: [id number] 17:14:04 Authorizing Provider: Alyssa Tamez MD Collected: 08/04/2021 08:32 AM Ordering Location: [facility] PERIOPERATIVE Received: 08/04/2021 10:02 AM SERVICES Pathologist: Lana Hui MD Specimen: Stomach, PARTIAL GASTRECTOMY STOMACH, PARTIAL GASTRECTOMY: - A PORTION OF GASTRIC BODY WITH NO SPECIFIC PATHOLOGIC CHANGES Signing Pathologist Direct Phone Line: [phone] signed by Lana Hui MD on 08/10/2021 [...] rugal folds. No discrete lesions are identified. Php Wordpress Developer sections are submitted in [email or web address].SARINA Ochoa, (ASC) POCT-GLUCOSE METER 2021-08-05 08:05:23 Test Item Value Reference Range Interpretation Comme nts POC-GLUCOSE METER (BEAKER) 106 mg/dL 70-110 : [facility] [address] [facility] (test code = 1538) [facility] X, [address]: Graphics Production Specialist/Techni bryan ID = [id number] for JESSICA SALDANA A POCT-GLUCOSE [id number] 21:44:33 Test Item Value Reference Range Interpretation Comments POC-GLUCOSE METER 113 mg/dL 70-110 H : TESTED A T [facility] [address] ([facility] (test code = [facility], 153) [address]: Graphics Production Specialist/Techni bryan ID = [id number] for SHAHLA MCPHERSON POCT-GLUCOSE [id number] 16:59:35 Test Item Value Reference Range Interpretation Comments POC-GLUCOSE METER 151 mg/dL 70-110 H : TESTED A T [facility] (BEAKER) (test code = [facility], 153) [id number]: Graphics Production Specialist/Techni bryna ID = [id number] for An toine, Peggy POCT-GLUCOSE [id number] 13:26:55 Test Item Value Reference Range Interpretation Comments POC-GLUCOSE METER 169 mg/dL 70-110 H : TESTED A T [facility] (BEAKER) (test code = [facility], 153) [address]: Graphics Production Specialist/Techni bryan ID = [id number] for An toine, Peggy POCT-GLUCOSE [id number] 12:17:26 Test Item Value Reference Range Interpretation Comments POC-GLUCOSE METER 161 mg/dL 70-110 H : TESTED A T [facility] (BEAKER) (test code = [facility], 153) [address]: Graphics Production Specialist/Techni bryan ID = [id number] for SUNG MRAIE URINALYSIS W/ REFLEX URINE [id number] 08:05:03 Test Item Value Reference Range Interpretation [...] = 1521) SOURCE(BEAKER) (test code = 2795) Graphics Production Specialist ID - [auto]Graphics Production Specialist ID - techSARS-COV2/RT-PCR ([facility]) 2021 23:45:05 Test Item Value Reference Range Interpretation Comments SARS-COV2/RT-PCR (test code = Negative Negative 8898331) Negative result for this test determines that [...] the Parks SARS-CoV-2 assay.Fact Sheet for Healthcare Providers:https://www.ScreenTag.ServiceTrade/kaylee/RT SARS-CoV-2 HCP Fact Sheet 51- 177521.pdfFact Sheet for Healthcare Patients:https://www.ScreenTag.parks/kaylee/RT SARS-CoV-2 Patient Fact Sheet EN 51-169533D2.[id number] 12:32:40 Test Item Value Reference Range Interpretation Comments CREATININE (BEAKER) 0.61 mg/dL 0.57-1.25 (test code = 358) EGFR (BEAKER) (test 104 mL/min/1.73 ESTIM ATED GFR IS code = 1092) sq m NOT ACCURATE CREATININE CLEARANCE IN PREDICTING GLOMERULAR FILTRATION RATE . ESTIMATED GFR I S NOT APPLICABLE FOR DIALYSIS PATIEN TS. Graphics Production Specialist ID - TYLOR [id number] 12:32:40 Test Item Value Reference Range Interpretation Comments GLUCOSE RANDOM (BEAKER) (test code 147 mg/dL 70-105 H = 652) Graphics Production Specialist ID - TYLOR [id number] 12:32:39 Test Item Value Reference Range Interpretation Comments BLOOD UREA NITROGEN (BEAKER) (test 11 mg/dL 7-21 code = 354) Graphics Production Specialist ID - TYLOR [id number] 12:32:39 Test Item Value Reference Range Interpretation Comments SODIUM (BEAKER) (test code = 381) 142 meq/L 136-145 POTASSIUM (BEAKER) (test code = 4.0 meq/L 3.5-5.1 379) CHLORIDE (BEAKER) (test code = 382) 106 meq/L 98-107 CO2 (BEAKER) (test code = 355) 27 meq/L 22-29 Graphics Production Specialist ID - TYLOR [id number] 12:13:22 Test Item Value Reference Range Interpretation Comments HEMOGLOBIN (BEAKER) (test code = 11.8 GM/DL 11.2-15.7 410) Graphics Production Specialist ID - [id number]-PCR ([facility])2020-05-12 19:10:00 Test Item Value Reference Range Interpretation Comments SARS-COV2/RT-PCR (test code = Positive Not Detected, Negative A A [id number]) SARS-COV-2 PERFORMING LAB [facility] (test code = 0784588) Results are for the detection of SARS-CoV-2 [...] 564(g) of the Act.Fact Sheet for Healthcare Providers:https://www.Board a Boat.Gear4music.com/sites/default/files/product/d ocuments/Lqsp_Zqyus_ZI_Twgsuezis_Fpmz_FMTN-PsZ-1.pdfFact Sheet for Healthcare Patients:https://www.WinBuyer.Gear4music.com/sites/default/files/product/documents/Fact_Sheet_Patients_Lyra_SARS-CoV -2.pdfPerforming Laboratory:[facility] [place] [address]
[2021-11-16 15:09] LABS: Absolute Lymphocytes (CBC) 1.2 K/uL (0.7-4.9); Hematocrit 34.2 % (36.0-45.0); Lymphocytes % 24.6 % (15.3-44.8); MPV 6.6 fL (7.6-11.3)
[2021-11-16 15:23] LABS: BUN Blood Urea Nitrogen 8 mg/dL (7-18); Bicarbonate 29 mmol/L (21-32); Glucose Level 115 mg/dL (74-106); Potassium 3.1 mmol/L (3.5-5.1); Sodium Level 138 mmol/L (136-145)
[2021-11-16 15:23] LABS: SARS-COV-2 RT PCR NEGATIVE (NEGATIVE)
--- NOTE | 2021-11-16 15:54 | ER ---
Nurse's Notes [facility] Name: Ailin Dickson Age: 51 yrs Sex: Female : 1970 Arrival Date: 11/16/2021 Time: 14:00 Bed 19 Private MD: Diagnosis: Fever, unspecified Presentation: 11/16 14:06 Chief complaint: Patient states: Runny nose, fatigue, weakness for 3 days. Fever today, ll1 sent in by [facility] for eval. Coronavirus screen: Vaccine status: Patient reports receiving the 2nd dose of the covid vaccine. Client denies travel out of the [place] in the last 14 days. chills, diarrhea, fatigue, fever, nausea, runny nose, Client presents with at least one sign or symptom that may indicate coronavirus-19. Standard/surgical mask placed on the client. Ebola Screen: Patient denies travel to an Ebola-affected area in the 21 days before illness onset. Initial Sepsis Screen: Does the patient meet any 2 criteria? HR > 90 bpm. No. Patient's initial sepsis screen is negative. Does the patient have a suspected source of infection? Yes: Productive cough/pneumonia. Risk Assessment: Do you want to hurt yourself or someone else? Patient reports no desire to harm self or others. Onset of symptoms was November 14, 2021. 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 - Social history:: Smoking status: Reported history of juuling and/or vaping. - Family history:: not pertinent. - Hospitalizations: : No recent hospitalization is reported. Screenin:34 Abuse screen: Denies threats or abuse. Denies injuries from another. Nutritional mejia screening: No deficits noted. Tuberculosis screening: No symptoms or risk factors identified. Fall Risk None identified. Assessment: 14:34 General: Appears in no apparent distress. Behavior is cooperative, crying. Pain: Denies mejia pain. Cardiovascular: Reports fatigue. Vital Signs: 14:06 BP 135 / 90; Pulse 96; Resp 17; Temp 100.1; Pulse Ox 100% ; Weight 94.35 kg; Height 5 ll1 ft. 6 in. (167.64 cm); Pain 4/10; 15:02 BP 108 / 78; Pulse 88; Resp 18; Pulse Ox 99% on R/A; mejia 14:06 Body Mass Index 33.57 (94.35 kg, 167.64 cm) ll1 ED Course: 14:00 Patient arrived in ED. ds1 14:08 Triage completed. ll1 14:09 Arm band placed on. ll1 14:14 Jhon Low MD is Attending Physician. rn 14:34 Patient has correct armband on for positive identification. Bed in low position. mejia 14:34 No provider procedures requiring assistance completed. mejia 14:59 COVID-19/FLU A+B (Document "Date of Onset" if Symptomatic) Sent. mejia 14:59 Blood Culture Adult (2) Sent. mejia 14:59 Basic Metabolic Panel Sent. mejia 14:59 CBC with Diff Sent. mejia 15:00 Inserted saline lock: 20 gauge in right antecubital area, using aseptic technique. mejia 16:10 IV discontinued, intact, Pressure dressing applied. mejia Administered Medications: No medications were administered Outcome: 15:53 Discharge ordered by . rn 16:09 Discharged to home mejia 16:09 Condition: good 16:09 Discharge instructions given to patient. 16:28 Patient left the ED. mejia Signatures: Catherine Nguyen ds1 Jhon Low MD MD rn Lewis, Lynsay, RN RN 1 Marium Raines RN RN ha
--- NOTE | 2021-11-16 15:54 | EDPHYS ---
Physician Documentation [facility] Name: Ailin Dickson Age: 51 yrs Sex: Female : 1970 Arrival Date: 11/16/2021 Time: 14:00 Bed 19 Private MD: ED Physician Jhon Low HPI: 11/16 14:53 This 51 yrs old Unknown Female presents to ER via Ambulatory with complaints of Runny rn Nose, Fever. 14:53 The patient or guardian reports flu symptoms, low-grade fever, Rhinorrhea. Onset: The rn symptoms/episode began/occurred 2 day(s) ago. Severity of symptoms: At their worst the symptoms were mild, in the emergency department the symptoms are unchanged. Modifying factors: The symptoms are alleviated by nothing, the symptoms are aggravated by nothing. Associated signs and symptoms: Pertinent positives: fever, rhinorrhea, Pertinent negatives: chest pain, vomiting. The patient has not experienced similar symptoms in the past. The patient has been recently seen by a physician:. Patient reports low-grade fever and rhinorrhea. Last chemo 2 weeks ago. No shortness of breath. No new GI symptoms out of the ordinary for her. Just finished her last radiation treatment for colon cancer. Sent from [facility] for COVID testing. Does not feel terrible. 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 - Social history:: Smoking status: Reported history of juuling and/or vaping. - Family history:: not pertinent. - Hospitalizations: : No recent hospitalization is reported. ROS: 14:53 Constitutional: Positive for fever Eyes: Negative for injury, pain, redness, and rn hospice, ENT: Positive for rhinorrhea Neck: Negative for injury, pain, and swelling, Cardiovascular: Negative for chest pain, palpitations, and edema, Respiratory: Negative for shortness of breath, cough, wheezing, and pleuritic chest pain, Abdomen/GI: Positive for nausea, negative for new abdominal pain MS/Extremity: Negative for injury and deformity, Skin: Negative for injury, rash, and discoloration, Neuro: Negative for headache, numbness, tingling, and seizure. Exam: 14:53 Constitutional: This is a well developed, well nourished patient who is awake, alert, rn and in no acute distress. Head/Face: Normocephalic, atraumatic. Eyes: Periorbital areas with no swelling, redness, or edema. ENT: No stridor Cardiovascular: Regular rate and rhythm. No pulse deficits. Respiratory: Speaking full sentences, unlabored. No increased work of breathing, no retractions or nasal flaring. Skin: Warm, dry MS/ Extremity: Pulses equal, no cyanosis. Neuro: Awake and alert, GCS 15 Vital Signs: 14:06 BP 135 / 90; Pulse 96; Resp 17; Temp 100.1; Pulse Ox 100% ; Weight 94.35 kg; Height 5 ll1 ft. 6 in. (167.64 cm); Pain 4/10; 15:02 BP 108 / 78; Pulse 88; Resp 18; Pulse Ox 99% on R/A; mejia 14:06 Body Mass Index 33.57 (94.35 kg, 167.64 cm) ll1 MDM: 14:14 Patient medically screened. rn 15:52 Differential Diagnosis: Bronchitis Influenza Upper Respiratory Infection Viral rn Syndrome. Data reviewed: vital signs, nurses notes, lab test result(s), and as a result, I will discharge patient. Counseling: I had a detailed discussion with the patient and/or guardian regarding: the historical points, exam findings, and any diagnostic results supporting the discharge/admit diagnosis, lab results, the need for outpatient follow up, to return to the emergency department if symptoms worsen or persist or if there are any questions or concerns that arise at home. Special discussion: I discussed with the patient/guardian in detail that at this point there is no indication for admission to the hospital. It is understood, however, that if the symptoms persist or worsen the patient needs to return immediately for re-evaluation. 15:52 ED course: Patient not neutropenic, normal WBC, negative procalcitonin, normal renal rn function, blood culture sent, will discharge home with return precautions and recommend retesting for COVID. Site of recent port placement without signs of infection or tenderness out of proportion for recent surgery. 11/16 14:20 Order name: CBC with Diff rn 11/16 14:20 Order name: Basic Metabolic Panel; Complete Time: 15:27 rn 11/16 14:20 Order name: IV Start; Complete Time: 14:59 rn 11/16 14:20 Order name: Procalcitonin; Complete Time: 15:37 rn 11/16 14:20 Order name: Blood Culture Adult (2) rn 11/16 14:20 Order name: COVID-19/FLU A+B (Document "Date of Onset" if Symptomatic); Complete Time: rn 15:27 Administered Medications: No medications were administered Disposition Summary: 11/16/21 15:53 Discharge Ordered Location: Home rn Problem: new rn Symptoms: have improved rn Condition: Stable rn Diagnosis - Fever, unspecified rn Followup: rn - With: Private Physician - When: As needed - Reason: Recheck today's complaints, Re-evaluation by your physician Discharge Instructions: - Discharge Summary Sheet rn - Fever, Adult rn Forms: - Medication Reconciliation Form rn - Thank You Letter rn - Antibiotic district attorney - Prescription Opioid Use rn Signatures: Dispatcher [employer] EDJhon Sequeira MD MD rn Lewis, Lynsay RN RN ll1 Corrections: (The following items were deleted from the chart) 14:55 14:53 Patient reports low-grade fever and rhinorrhea. Last chemo 2 weeks ago. No rn shortness of breath. No new GI symptoms out of the ordinary for her. Just finished her last radiation treatment for colon cancer. Sent from cancer center for COVID testing. rn
[2021-11-16 17:17] VITALS: TEMP 100.1
[2021-11-16 17:22] VITALS: BP 108/78; O2SAT 99
[2021-11-16 22:06] LABS: Anisocytosis 2+; Blood Morphology Comment NOTED (NOT SEEN); Platelet Estimate ADEQ
== END 2021-11-16 16:28 | disposition home or self-care (01) ==
LOC: ER 13:57
DX: R50.9 Fever, unspecified (principal); C18.9 Malignant neoplasm of colon, unspecified; E11.9 Type 2 diabetes mellitus without complications; Z20.822 Contact with and (suspected) exposure to COVID-19
CPT/HCPCS: 87040 ×2; 85025; 80048; 36415; 84145; 0240U; 99283

== ENCOUNTER 2022-01-23 18:44 | Inpatient (IN) | payer BC ==
--- OUTSIDE RECORDS SUMMARY | 2022-01-23 19:14 | XMS REPORT | Continuity of Care Document ---
:1970 Author Organization [facility] t Address [address] Jean Baptiste. [address] [place] [address] Care Team Providers Name Role Phone THALIA LOPEZ Primary Care Physician Unavailable Ghulam Lopez Attending Clinician Unavailable NGOZI TAMEZ Attending Clinician Unavailable SANDY Attending Clinician Unavailable SANDY Attending Clinician Unavailable NIR HOOKS Attending Clinician Unavailable NGOZI TAMEZ Attending Clinician Unavailable JORGE Attending Clinician Unavailable Ngozi Tamez MD Attending Clinician Kiley PALENCIA Attending Clinician KILEY Attending Clinician Unavailable NGOZI TAMEZ Admitting Clinician Unavailable Payers Payer Name Policy Type Policy Number Effective Date Expiration Date S tera CIGNA [id number] 2018 00:00:00 HMO/POS/OPEN ACCESS BCBS PPO POS EPO [id number] 2021 00:00:00 CHOICE OUT OF STATE BCBS [id number] - PPO - BCBS OPEN ACCESS [id number] HMO/POS/EPO/PPO - AETNA NETWORK OPEN [id number] ACCESS - CIGNA CVCP-AETNA [id number] AETNA SELECT [id number] 2020 00:00:00 ACCESS Problems Condition Condition Condition Status Onset Resolution Last Treating Co mments Source Name Details Category Date Date Treatment Clinician Date Rectal Rectal Disease Active [facility] cancer cancer 2-22 College (HCCode) (HCCode) 00:00: of 00 Medicin e Allergies, Adverse Reactions, Alerts Allergy Allergy Status Severity Reaction(s) Onset Inactive Treating Comm ents Source Name Type Date Date Clinician NO KNOWN Allergy Active [facility] Social History Social Habit Start Date Stop Date Quantity Comments Source History [facility] ge Alcohol Frequency of Medi cine History [facility] ge Alcohol Std Drinks of Med icine History [facility] Alcohol Binge of Medicine Exposure to Yes [facility] e SARS-CoV-2 (event) of Med icine Alcohol intake 2021-12-28 2021-12-28 Current drinker [facility] 00:00:00 00:00:00 of alcohol of Medicine (finding) Alcohol Comment 2020-10-09 2020-10-09 social [facility]lege 00:00:00 00:00:00 of Medicine Tobacco use and 2020-10-09 2020-10-09 Smokeless tobacco [facility] [place] exposure 00:00:00 00:00:00 non-user of Medicine Sex Ass[birth year] At [birth year] [facility] 00:00:00 00:00:00 of Medicine Smoking Status Start Date Stop Date Source Never smoked tobacco [facility] Eze ege of Medicine Medications Ordered Filled Start Stop Current Ordering Indication Dosage Frequency Signature Comments Components Source Medication Medication Date Date Medication? Clinician (SIG) Name Name sertraline Yes 100mg Take 100 [facility] (ZOLOFT) 2-21 mg by College 100 MG 14:49: mouth of tablet 33 daily. Medicin Last dose e 07/2021 gabapentin Yes 300mg Take 300 [facility] (NEURONTIN) 2-21 mg by College 300 MG 14:46: mouth 3 of capsule 23 times Medicin daily. e Apixaban Yes 2.5mg Take 2.5 [facility] (ELIQUIS) 2-21 mg by College 2.5 MG TABS 14:46: mouth two o f 23 times Medicin daily. e prochlorper 2020-11 Yes 10mg Take 1 [facility] azine 2-30 Tablet by [place] (COMPAZINE) 00:00: mouth of 10 MG 00 every 6 Medicin tablet hours as e needed for Nausea for up to 30 doses. Vitamin D, 2020-11 Yes 1{capsu Take 1 [facility] Ergocalcife 0-11 le} capsule by Co claudette rol, 1.25 15:23: mouth of MG (82018 06 every 7 Medicin [place]) CAPS days. e pantoprazol 2020- No 20mg Take 1 [place] song e 07-30 Tablet by [place] (PROTONIX) 00:00: 05:59 mouth of 20 MG 00 :00 daily for Medicin tablet 90 days. e Take everyday for 3 months pantoprazol 2020- No 20mg Take 1 [place] song e 07-30 Tablet by [place] (PROTONIX) 00:00: 05:59 mouth of 20 MG 00 :00 daily for Medicin tablet 90 days. e Take everyday for 3 months pantoprazol 2020- No 20mg Take 1 [place] song e 07-30 Tablet by [place] (PROTONIX) 00:00: 05:59 mouth of 20 MG [...] pain ondansetron 2020- No 4mg Take 1 [place] song (ZOFRAN-ODT 07-30 Tablet by Co llege [...] pain ondansetron 2020- No 4mg Take 1 [place] song (ZOFRAN-ODT 07-30 Tablet by Co llege [...] as needed for nausea Vitamin D, Yes [id number] TAKE 1 [facility] Ergocalcife 6-03 CAPSULE BY Co llege rol, 1.25 00:00: MOUTH of MG (42071 00 EVERY 7 Medicin [place]) CAPS DAYS e Vitamin D, Yes [id number] TAKE 1 [facility] Ergocalcife 6-03 CAPSULE BY Co llege rol, 1.25 00:00: MOUTH of MG (91395 00 EVERY 7 Medicin [place]) CAPS DAYS e Vitamin D, Yes [id number] TAKE 1 [facility] Ergocalcife 6-03 CAPSULE BY Julien moses, 1.25 00:00: MOUTH of MG (77013 00 EVERY 7 Medicin [place]) CAPS DAYS e Vitamin D, 2020-0 2020- No [id number] TAKE 1 [facility] Ergocalcife 6-03 10-11 CAPSULE BY Alfonso moses, 1.25 00:00: 00:00 MOUTH of MG (68038 00 :00 EVERY 7 Medicin [place]) CAPS [...] e sertraline 2019-11 Yes 1{tbl} Take 1 [place] song (ZOLOFT) 1-09 Tablet by Colleg e 100 MG 00:00: mouth of tablet 00 daily. Medicin e sertraline 2019-11 Yes 1{tbl} Take 1 [place] song (ZOLOFT) 1-09 Tablet by Colleg e 100 MG 00:00: mouth of tablet 00 daily. Medicin e sertraline 2019-11 Yes 1{tbl} Take 1 [place] song (ZOLOFT) 1-09 Tablet by Colleg e 100 MG 00:00: mouth of tablet 00 daily. Medicin e sertraline 2019-11 Yes 1{tbl} Take 1 [place] song (ZOLOFT) 1-09 Tablet by Colleg e 100 MG 00:00: mouth of tablet 00 daily. Medicin e sertraline 2019-11 Yes 1{tbl} Take 1 [place] sogn (ZOLOFT) 1-09 Tablet by Colleg e 100 MG 00:00: mouth of tablet 00 daily. Medicin e Continuous 2019-11 Yes 1{strip 1 Strip [facility] Blood Gluc 0-12 } See Admin Eze ege Sensor 00:00: Instructio of (FREESTYLE 00 ns. Medicin CAROL 2 e SENSOR SYSTM) [facility] [place] 2019-11 Yes 1{strip 1 Strip [facility] Blood Gluc 0-12 } See Admin Eze ege Sensor 00:00: Instructio of (FREESTYLE 00 ns. Medicin CAROL 2 e SENSOR SYSTM) [facility] [place] 2019-11- No 1{strip 1 Strip [facility] Blood Gluc 0-12 23 } See Admin Col lege Sensor 00:00: 00:00 Instructio of (FREESTYLE 00 :00 ns. Medicin CAROL 2 e SENSOR SYSTM) [facility] [place] 2019-11- No 1{strip 1 Strip [facility] Blood Gluc 0-12 -23 } See Admin Col lege Sensor 00:00: 00:00 Instructio of (FREESTYLE 00 :00 ns. Medicin CAROL 2 e SENSOR SYSTM) [facility] Atorvastati Atorvastati 2020-0 Yes Marco Antonio [address] [facility] Calcium n Calcium 07-15 Lopez [facility] - [facility]: [facility] Zoloft Zoloft Yes Marco Antonio Take 1/[address] [facility] [facility] 07-15 Lopez tab QD x 1 [facility] 00:[facility] week then [facility] 00 take 1 tab l QD Outpati ent Clinics Xigduo XR Xigduo XR 2019-0 2020- No Marco Antonio [address] [facility] 07-15 12-06 [facility] Immunizations Ordered Filled Immunization Date Status Comments Sour e Immunization Name Name PNEUMAVAX 23 PNEUMAVAX 23 2020-06-[address] [facility] [facility] - 00:00:00 [facility] Vital Signs Vital Name Observation Time Observation Value Comments Source HEIGHT 2021-08-04 06:30:00 167.6 cm WEIGHT 2021-08-04 06:30:00 114.76 kg HEIGHT 2021-08-03 08:40:00 167 cm WEIGHT 2021-08-03 08:40:00 102 kg Systolic blood 2021-12-28 20:37:00 118 mm[Hg] [facility] Medicine Diastolic blood 2021-12-28 20:37:00 73 mm[Hg] [facility] Heart rate 2021-12-28 20:37:00 90 /min [facility] Body temperature 2021-12-28 20:37:00 36.89 [facility] Body height 2021-12-28 20:37:00 167.6 cm [facility] Body weight 2021-12-28 20:37:00 85.367 kg [facility] BMI 2021-12-28 20:37:00 30.38 kg/m2 [facility] Systolic blood 2021-08-17 20:11:00 115 mm[Hg] [facility] Medicine Diastolic blood 2021-08-17 20:11:00 75 mm[Hg] [facility] Heart rate 2021-08-17 20:11:00 65 /min [facility] Body temperature 2021-08-17 20:11:00 36.83 [facility] Body height 2021-08-17 20:11:00 167.6 cm [facility] C ollege of Medicine Body weight 2021-08-17 20:11:00 108.41 kg [facility] C [facility]lege of Medicine BMI 2021-08-17 20:11:00 38.58 kg/m2 [facility] C ollege of Medicine HEIGHT 2021-08-04 06:30:00 167.6 cm WEIGHT 2021-08-04 06:30:00 114.76 kg HEIGHT 2021-08-03 08:40:00 167 cm WEIGHT 2021-08-03 08:40:00 102 kg Systolic blood 2021 17:49:00 116 mm[Hg] [facility] pressure Medicine Diastolic blood 2021 17:49:00 79 mm[Hg] [facility] pressure Medicine Heart rate 2021 17:49:00 82 /min [facility] ollege of [facility] Body temperature 2021 17:49:00 36.56 [facility] Body height 2021 17:49:00 167.6 cm [facility] C [facility] of Medicine Body weight 2021 17:49:00 114.76 kg [facility] ollege of Medicine BMI 2021 17:49:00 40.84 kg/m2 [facility] ollege of Medicine Systolic blood 2020-10-09 14:14:00 117 mm[Hg] [facility] Diastolic blood 2020-10-09 14:14:00 77 mm[Hg] [facility] Medicine Heart rate 2020-10-09 14:14:00 98 /min [facility] ollege of Medicine Body temperature 2020-10-09 14:14:00 36.83 [facility] Body height 2020-10-09 14:14:00 167.6 cm [facility] C [facility] of [facility] Body weight 2020-10-09 14:14:00 108.591 kg [facility] of [facility] BMI 2020-10-09 14:14:00 38.64 kg/m2 [facility] ollege of Medicine Systolic blood 2020-10-09 14:14:00 117 mm[Hg] [employer] [facility] pressure Medicine Diastolic blood 2020-10-09 14:14:00 77 mm[Hg] [facility] pressure Medicine Heart rate 2020-10-09 14:14:00 98 /min [facility] Body temperature 2020-10-09 14:14:00 36.83 [facility] Body height 2020-10-09 14:14:00 167.6 cm [facility] Body weight 2020-10-09 14:14:00 108.591 kg [facility] BMI 2020-10-09 14:14:00 38.64 kg/m2 [facility] Procedures This patient has no known procedures. Plan of Care Planned Activity Planned Date Details Comments Source Future Scheduled 2022-02-15 CT CHEST W ABD/PELVIS Expected: [facility] Test 00:00:00 WO/W [code = 69707] 02/15/2022, of Medic ine Expires: 12/28/2022 Future Scheduled 2021-12-29 Screening for malignant [facility] Test 07:17:16 neoplasm of colon of Medicin e (procedure) [code = 298117865] Future Scheduled 2021-12-29 Screening for malignant [facility] Test 07:17:16 neoplasm of breast of Medici ne (procedure) [code = 892357647] Future Scheduled 2021-12-29 Hepatitis C screening [facility] Test 07:17:16 (procedure) [code = of Medic ine 459788336] Future Scheduled 2021-12-29 Human immunodeficiency B [facility] Test 07:17:16 virus screening of Medicine (procedure) [code = 710920563] Future Scheduled 2021-12-29 Screening for malignant [facility] Test 07:17:16 neoplasm of cervix of Medici ne (procedure) [code = 554303043] Future Scheduled 2021-12-29 COVID-19 Vaccine (3 - Ba [facility] Test 07:17:16 Booster for Moderna of Medic ine series) [code = COVID-19 Vaccine (3 - Booster for Moderna series)] Future Scheduled 2021-12-29 FLU VACCINE > 6 MONTHS B [facility] Test 07:17:16 [code = FLU VACCINE > 6 of M edicine MONTHS] Future Scheduled 2021-12-29 ZOSTER VACCINE (1 of 2) [facility] Test 07:17:16 [code = ZOSTER VACCINE of Me dicine (1 of 2)] Future Scheduled 2021-12-29 BMI FOLLOW UP PLAN [facility] Test 07:17:16 [code = BMI FOLLOW UP of Med icine PLAN] Future Scheduled 2021-12-29 TETANUS SHOT (ADULT) [place] [facility] Test 07:17:16 [code = TETANUS SHOT of Medi cine (ADULT)] Future Scheduled 2021-12-28 WILD 1 [code = NOCPT] Ordered: [facility] Test 16:04:25 12/28/2021 of Medicine Future Scheduled 2021-12-28 TEMPUS XT TISSUE NGS Ordered: [facility] College Test 15:52:56 [code = 65102560] 12/28/2021 of Medicin e Future Scheduled 2021-08-17 BMI FOLLOW UP PLAN [facility] r College Test 15:15:29 [code = BMI FOLLOW UP of Med icine PLAN] Future Scheduled 2021-08-17 Screening for malignant [facility] Test 15:13:47 neoplasm of colon of Medicin e (procedure) [code = 073076581] Future Scheduled 2021-08-17 Screening for malignant [facility] Test 15:13:47 neoplasm of breast of Medici ne (procedure) [code = 279906869] Future Scheduled 2021-08-17 TETANUS SHOT (ADULT) [place] [facility] Test 15:13:47 [code = TETANUS SHOT of Medi cine (ADULT)] Future Scheduled 2021-08-17 Hepatitis C screening [facility] Test 15:13:47 (procedure) [code = of Medic ine 170437712] Future Scheduled 2021-08-17 [facility] 15:13:47 virus screening of Medicine (procedure) [code = 548869632] Future Scheduled 2021-08-17 Screening for malignant [facility] Test 15:13:47 neoplasm of cervix of Medici ne (procedure) [code = 129813995] Future Scheduled 2021-08-17 FLU VACCINE > 6 MONTHS [facility] 15:13:47 [code = FLU VACCINE > 6 of M edicine MONTHS] Future Scheduled 2021-08-17 ZOSTER VACCINE (1 of 2) [facility] Test 15:13:47 [code = ZOSTER VACCINE of Me dicine (1 of 2)] Future Scheduled 2021 BMI FOLLOW UP PLAN [facility] [employer] Test 12:51:47 [code = BMI FOLLOW UP of Med icine PLAN] Future Scheduled 2021 BMI FOLLOW UP PLAN [facility] [facility] [employer] Test 12:51:47 [code = BMI FOLLOW UP of Med icine PLAN] Future Scheduled 2021 Screening for malignant [facility] Test 12:49:38 neoplasm of colon of Medicin e (procedure) [code = 148210531] Future Scheduled 2021 Screening for malignant [facility] [employer] Test 12:49:38 neoplasm of breast of Medici ne (procedure) [code = 705997986] Future Scheduled 2021 TETANUS SHOT (ADULT) [place] [facility] Test 12:49:38 [code = TETANUS SHOT of Medi cine (ADULT)] Future Scheduled 2021 Hepatitis C screening [facility] Test 12:49:38 (procedure) [code = of Medic ine 801408194] Future Scheduled 2021 Human immunodeficiency [facility] Test 12:49:38 virus screening of Medicine (procedure) [code = 645810273] Future Scheduled 2021 Screening for malignant [facility] [employer] Test 12:49:38 neoplasm of cervix of Medici ne (procedure) [code = 053537675] Future Scheduled 2021 FLU VACCINE > 6 MONTHS [facility] Test 12:49:38 [code = FLU VACCINE > 6 of M edicine MONTHS] Future Scheduled 2021 ZOSTER VACCINE (1 of 2) [facility] [employer] Test 12:49:38 [code = ZOSTER VACCINE of Tx dicine (1 of 2)] Future Scheduled 2021 Screening for malignant [facility] [employer] Test 12:49:38 neoplasm of colon of Medicin e (procedure) [code = 887337172] Future Scheduled 2021 Screening for malignant [facility] [employer] Test 12:49:38 neoplasm of breast of Medici ne (procedure) [code = 260339215] Future Scheduled 2021 TETANUS SHOT (ADULT) [place] [facility] Test 12:49:38 [code = TETANUS SHOT of Medi cine (ADULT)] Future Scheduled 2021 Hepatitis C screening [facility] Test 12:49:38 (procedure) [code = of Medic ine 903273935] Future Scheduled 2021 Human immunodeficiency [facility] Test 12:49:38 virus screening of Medicine (procedure) [code = 388303025] Future Scheduled 2021 Screening for malignant [facility] Test 12:49:38 neoplasm of cervix of Medici ne (procedure) [code = 846999346] Future Scheduled 2021 FLU VACCINE > 6 MONTHS [facility] Test 12:49:38 [code = FLU VACCINE > 6 of M edicine MONTHS] Future Scheduled 2021 ZOSTER VACCINE (1 of 2) [facility] Test 12:49:38 [code = ZOSTER VACCINE of Me dicine (1 of 2)] Future Scheduled 2021-07-17 Screening for malignant [facility] Test 10:50:40 neoplasm of colon of Medicin e (procedure) [code = 740160342] Future Scheduled 2021-07-17 Screening for malignant [facility] [employer] Test 10:50:40 neoplasm of breast of Medici ne (procedure) [code = 817449343] Future Scheduled 2021-07-17 TETANUS SHOT (ADULT) [place] [facility] Test 10:50:40 [code = TETANUS SHOT of Medi cine (ADULT)] Future Scheduled 2021-07-17 Hepatitis C screening Ba [facility] Test 10:50:40 (procedure) [code = of Medic ine 324903943] Future Scheduled 2021-07-17 [facility] 10:50:40 virus screening of Medicine (procedure) [code = 157913938] Future Scheduled 2021-07-17 Screening for malignant [facility] Test 10:50:40 neoplasm of cervix of Medici ne (procedure) [code = 588285245] Future Scheduled 2021-07-17 FLU VACCINE > 6 [...] dicine Future Scheduled MAMMOGRAM ANNUAL [facility] = MAM[facility]GRAM ANNUAL] of Medic ine Future Scheduled TETANUS SHOT (ADULT) [place] [facility] Test [code = TETANUS SHOT of Medi cine (ADULT)] Future Scheduled HEPATITIS C SCREENING [facility] [code = HEPATITIS C of Medic ine SCREENING] Future Scheduled HIV SCREENING [code = [facility] HIV SCREENING] of Medicine Future Scheduled CERVICAL CANCER [facility] ollege Test SCREENING 3 YEAR FOLLOW of M edicine UP [code = CERVICAL CANCER SCREENING 3 YEAR FOLLOW UP] Future Scheduled FLU VACCINE > 6 MONTHS [facility] Test [code = FLU VACCINE > 6 of M edicine MONTHS] Encounters Start End Encounter Admission Attending Care Care Encounter Source Date/Time Date/Time Type Type Clinicians Facility Department ID 2022-01-04 Outpatient Lopez, [facility] 2021-12-08 Outpatient Lopez, [place] [id number] [facility] 09:05:02 Marco [facility] 2021-12-02 Outpatient Lopez, [facility] 14:36:55 Marco [facility] 2021-12-02 Outpatient Lopez, [facility] 14:07:52 Marco Antonio 23497 [facility] 2021-12-02 Outpatient Lopez, [facility] 14:03:52 Marco Antonio 35711 [facility] 2021-12-02 Outpatient Lopez, [place] [id number] 13:55:47 Marco Antonio 73737 [facility] 2021-12-02 Outpatient Lopez, [place] [id number] 13:53:17 Marco Antonio 09058 [facility] 2021-12-02 Outpatient Lopez, [place] [id number] 13:11:18 Marco Antonio 67845 [facility] 2021-12-02 Outpatient Lopez, [facility] 12:40:47 Marco Antonio 56317 [facility] 2021-12-02 Outpatient Lopez, [facility] [id number] 12:36:13 Marco Antonio 59388 [facility] 2021-12-02 Out[facility] Lopez, [facility] [id number] 12:10:36 Marco Antonio 00608 [facility] 2021-12-02 Out[facility] Lopez, [facility] [id number] 11:38:47 Marco Antonio 57316 [facility] 2021-12-02 Outpatient Lopez, [facility] 11:21:02 Marco [facility] 2021-08-16 Inpatient [facility] Surgery [id number] [facility] 06:30:09 ALYSSA 2022-02-16 2022-02-16 Outpatient ANDREI DELGADO [facility] [id number] [facility] 00:00:00 00:00:00 TANNAZ 2022-02-16 2022-02-16 Outpatient ANDREI DELGADO [facility] [id number] [facility] 00:00:00 00:00:00 TANNAZ 2021-12-28 2021-12-28 Office SANDY [facility] [id number] [facility] 14:16:03 15:50:38 Visit SKYLAR HandleyNair 350.1.13.21 Co llege 0.2.7.2.686 [id number] [facility] sang 504 e 2021-12-09 2021-12-09 [id number] 2021-11-12 2021-11-12 Outpatient SAMUEL HOOKS MED [id number] [facility] 11:20:00 23:59:00 DAPHNEY 2021-11-05 2021-11-05 Outpatient BRODY TAMEZ [facility] [id number] [facility] 13:26:47 13:40:13 ALYSSA roman of Medicin e 2021-09-23 2021-09-23 Outpatient JORGE [facility] [id number] [place] 00:00:00 00:00:00 MAVIS [address] 2021-09-23 2021-09-23 Outpatient JORGE [facility] [id number] [place] 00:00:00 00:00:00 MAVIS [address] 2021-09-14 2021-09-14 ambulatory [facility] [id number] [facility] 2021-09-09 2021-09-09 ambulatory [facility] [id number] [facility] 2021-09-02 2021-09-02 Outpatient [facility] [id number] [facility] 2021-09-01 2021-09-01 Outpatient [facility] [id number] [facility] 2021-08-28 2021-08-28 Outpatient [facility] [id number] [facility] 2021-08-20 2021-08-20 Outpatient [facility] [id number] [facility] 2021-08-17 2021-08-17 Office CARL TAMEZ [id number] [facility] 14:47:06 15:14:31 Visit SAMER AMBULATOR 350.1.13.21 College Y 0.2.7.2.686 of [id number] [facility] sang 805 e 2021-08-10 2021-08-10 Outpatient [facility] [id number] [facility] 2021-08-10 2021-08-10 Outpatient [facility] [id number] [facility] 2021-08-03 2021-08-03 Outpatient EL [facility] [id number] [facility] 00:00:00 00:00:00 2021-07-31 2021-07-31 Outpatient [facility] [id number] [facility] 2021 2021 Outpatient [facility] [id number] [facility] 00:00:00 23:59:00 Migeul Medicin e 2021 2021 Office Joi [facility] [id number] [facility] 12:34:26 13:04:26 Visit Samer Gamil AMBULATOR 350.1.13.21 College Y 0.2.7.2.686 of [id number] [facility] 805 e 2021 2021 Outpatient [facility] [id number] [facility] 00:00:00 00:00:00 2021 2021 Outpatient EL [facility] [id number] [facility] 00:00:00 00:00:00 2021 2021 Outpatient EL [facility] [id number] [facility] 00:00:00 00:00:00 2021-07-17 2021-07-17 Office Kiley [facility] [id number] [place] [address] 11:00:00 12:00:00 Visit Jolene AMBULATOR 350.1.13.21 College Y 0.2.7.2.686 of [id number] [facility] sang 810 e 2021-05-01 2021-05-01 Outpatient [facility] [id number] [facility] 2021-04-13 2021-04-13 Outpatient [facility] [id number] [facility] 2021-03-27 2021-03-27 Outpatient [facility] [id number] [facility] 2021-03-04 2021-03-04 Outpatient GREDITH, [facility] [id number] [facility] 09:27:48 09:43:02 JOLENE Colleg e of Medicin e 2021-02-16 2021-02-16 Outpatient GREDITH, [facility] [id number] [facility] 09:30:25 09:54:09 JOLENE Colleg e of Medicin e 2021-02-04 2021-02-04 Outpatient GREDITH, [facility] [id number] [facility] 14:40:19 14:57:28 JOLENE Colleg e of Medicin e 2021-01-27 2021-01-27 Outpatient [facility] [id number] [facility] 2021-01-27 2021-01-27 Outpatient [facility] [id number] [facility] 2021-01-24 2021-01-24 [facility] [id number] [facility]00 [facility] ent Clinics 2021-01-09 2021-01-09 [facility] [id number] [facility] 2021-01-07 2021-01-07 Outpatient XUANTIGRE, [facility] [id number] [facility] 09:28:50 09:55:15 [facility] [employer] 2020-12-10 2020-12-10 Outpatient GRASIATIGRE, [facility] [id number] [facility] 14:28:59 14:55:01 [facility] [employer] 2020-11-13 2020-11-13 Outpatient [facility] [id number] [facility] 2020-10-22 2020-10-22 Outpatient [facility] [id number] [facility] 2020-10-22 2020-10-22 [facility] [id number] [facility] 2020-10-13 2020-10-13 [facility] [id number] [facility] 2020-10-13 2020-10-13 [facility] [id number] [facility] 2020-10-09 2020-10-09 Office Mattar, BCM [id number] 08:04:19 09:04:19 Visit Samer Gamil AMBULATOR [id number] Y [id number] [facility] 2020-10-09 2020-10-09 Office Mattar, BCM [id number] [place] [address] 08:04:19 09:04:19 Visit Samer Gamil AMBULATOR [id number] College Y 0.2.7.2.686 of [id number] [facility] 800 e 2020-10-08 2020-10-08 [facility] [id number] [facility] 2020-08-12 2020-08-12 [facility] [id number] [facility] 2020-08-08 2020-08-08 [facility] [id number] [facility] 2020-07-15 2020-07-15 [facility] [id number] [address] 08:30:00 08:30:00 [facility] Medicine l Medicine Outpati ent Clinics 2020-07-10 2020-07-10 [facility] [id number] 08:52:00 08:52:00 t [facility] Medicine Outpati ent Clinics 2020-06-24 2020-06-24 Outpatient Tayler Herring [id number] [facility] 15:30[facility] 15:30:00 [facility] Results Test Test Test Results Result Source Description Time Comments Comments TISSUE EXAM 2021-08- Surgical Pathology Report 04 Case: [id number] 17:14:04 Authorizing Provider: Alyssa Tamez MD Collected: 08/04/2021 08:32 AM Ordering Location: [facility] Received: 08/04/2021 10:02 AM SERVICES Pathologist: Lana Hui MD Specimen: Stomach, PARTIAL GASTRECTOMY STOMACH, PARTIAL GASTRECTOMY: - A PORTION OF GASTRIC BODY WITH NO SPECIFIC PATHOLOGIC CHANGES Signing Pathologist Direct Phone Line: [phone] signed by Lana Hui MD on 08/10/2021 [...] rugal folds. No discrete lesions are identified. Guidance And Control System Engineer sections are submitted in A1-A2.SARINA Ochoa, ([facility]) POCT-GLUCOSE METER 2021-08-05 08:05:23 Test Item Value Reference Range Interpretation Comme nts POC-GLUCOSE METER ([address]) 106 mg/dL 70-110 : TESTED AT [facility] [facility] (test code = 1538) [facility] X, [address]: Spark Plug Tester/Techni bryan ID = [id number] for JESSICA SALDANA POCT-GLUCOSE [id number] 21:44:33 Test Item Value Reference Range Interpretation Comments POC-GLUCOSE METER 113 mg/dL 70-110 H : TESTED A T [facility] [address] ([address]) (test code = [place], 1538) [address]: Spark Plug Tester/Techni bryan ID = [id number] for SHAHLA MCPHERSON POCT-GLUCOSE [id number] 16:59:35 Test Item Value Reference Range Interpretation Comments POC-GLUCOSE METER 151 mg/dL 70-110 H : TESTED A T [facility] (BEAKER) (test code = [facility], 1538) [address]: Spark Plug Tester/Techni bryan ID = [id number] for An toRenay chrisasha POCT-GLUCOSE [id number] 13:26:55 Test Item Value Reference Range Interpretation Comments POC-GLUCOSE METER 169 mg/dL 70-110 H : TESTED A T [facility] [address] (BEAKER) (test code = [facility], 1538) [address]: Spark Plug Tester/Techni bryan ID = [id number] for An Renay rushasha POCT-GLUCOSE [id number] 12:17:26 Test Item Value Reference Range Interpretation Comments POC-GLUCOSE METER 161 mg/dL 70-110 H : TESTED A T [facility] [address] (BEAKER) (test code = [facility], 1538) [address]: Spark Plug Tester/Techni bryan ID = [id number] for FRANK SUNG PATIENCE URINALYSIS W/ REFLEX URINE [id number] 08:05:03 Test Item Value Reference Range Interpretation [...] = 1521) SOURCE(BEAKER) (test code = 2795) Spark Plug Tester ID - [auto]Spark Plug Tester ID - techSARS-COV2/RT-PCR ([facility]) 2021 23:45:05 Test Item Value Reference Range Interpretation Comments SARS-COV2/RT-PCR (test code = Negative Negative [id number]) Negative result for this test determines that [...] the Parks SARS-CoV-2 assay.Fact Sheet for Healthcare Providers:https://www.Integration Management.localbacon/kaylee/RT SARS-CoV-2 HCP Fact Sheet 51- 422981.pdfFact Sheet for Healthcare Patients:https://www.Integration Management.parks/kaylee/RT SARS-CoV-2 Patient Fact Sheet EN 51-128827Z2.pxmHXFKLUHCMF4339-42-06 12:32:40 Test Item Value Reference Range Interpretation Comments CREATININE (BEAKER) 0.61 mg/dL 0.57-1.25 (test code = 358) EGFR (BEAKER) (test 104 mL/min/1.73 ESTIM ATED GFR IS code = 1092) sq m NOT ACCURATE CREATININE CLEARANCE IN PREDICTING GLOMERULAR FILTRATION RATE . ESTIMATED GFR I S NOT APPLICABLE FOR DIALYSIS PATIEN TS. Spark Plug Tester ID - DOMINICOBDULIA [id number] 12:32:40 Test Item Value Reference Range Interpretation Comments GLUCOSE RANDOM (BEAKER) (test code 147 mg/dL 70-105 H = 652) Spark Plug Tester ID - DOMINICOBDULIA [id number] 12:32:39 Test Item Value Reference Range Interpretation Comments BLOOD UREA NITROGEN (BEAKER) (test 11 mg/dL 7-21 code = 354) Spark Plug Tester ID - TYLOR [id number] 12:32:39 Test Item Value Reference Range Interpretation Comments SODIUM (BEAKER) (test code = 381) 142 meq/L 136-145 POTASSIUM (BEAKER) (test code = 4.0 meq/L 3.5-5.1 379) CHLORIDE (BEAKER) (test code = 382) 106 meq/L 98-107 CO2 (BEAKER) (test code = 355) 27 meq/L 22-29 Spark Plug Tester ID - TYLOR [id number] 12:13:22 Test Item Value Reference Range Interpretation Comments HEMOGLOBIN (BEAKER) (test code = 11.8 GM/DL 11.2-15.7 410) Spark Plug Tester ID - [id number]-COV2/RT-PCR ([facility])2020-05-12 19:10:00 Test Item Value Reference Range Interpretation Comments SARS-COV2/RT-PCR (test code = Positive Not Detected, Negative A A [id number]) SARS-COV-2 PERFORMING LAB [facility] (test code = 8838509) Results are for the detection of SARS-CoV-2 [...] 564(g) of the Act.Fact Sheet for Healthcare Providers:https://www.quNeos Corporation.BigTwist/sites/default/files/product/d ocuments/Hgqk_Lszew_OO_Xcsgnjbib_Dxxg_IGHJ-FqB-7.pdfFact Sheet for Healthcare Patients:https://www.Miappi idel.com/sites/default/files/product/documents/Fact_Sheet_Patients_Lyra_SARS-CoV -2.pdfPerforming Laboratory:[facility] [place] [address]
--- NOTE | 2022-01-23 20:08 | RAD REPORT ---
EXAM DESCRIPTION: US - Extrem Venous W Compress Pratik - 01/23/2022 7:57 pm CLINICAL HISTORY: SWELLING COMPARISON: No comparisons TECHNIQUE: Real-time sonographic evaluation of the lower extremity deep venous systems was performed using color Doppler, grayscale, and compression. FINDINGS: Bilateral lower extremities. Normal compressibility, flow augmentation, phasic flow and spontaneous flow is identified in both the left and right lower extremity deep venous systems. No intraluminal filling defects seen. IMPRESSION: No DVT in either lower extremity.
[2022-01-23] MEDS ORDERED: MORPHINE 4 MG/ML SYR ONE (21:32)
[2022-01-23] MEDS ORDERED: ONDANSETRON 4 MG/2 ML VIAL ONE (21:32)
[2022-01-23 21:51] LABS: Absolute Lymphocytes (CBC) 1.8 K/uL (0.7-4.9); Hematocrit 32.5 % (36.0-45.0); Lymphocytes % 4.1 % (15.3-44.8); MPV 7.2 fL (7.6-11.3); RBC Red Blood Cell Count 3.75 M/uL (3.86-4.86)
[2022-01-23 22:07] LABS: ALT/SGPT 41 U/L (12-78); AST/SGOT 39 U/L (15-37); Albumin 2.9 g/dL (3.4-5.0); Alkaline Phosphatase 138 U/L (45-117); BUN Blood Urea Nitrogen 10 mg/dL (7-18); Bicarbonate 31 mmol/L (21-32); Bilirubin Total 0.7 mg/dL (0.2-1.0); Glucose Level 81 mg/dL (74-106); Lipase 81 U/L (73-393); Protein, Total 6.7 g/dL (6.4-8.2); Sodium Level 141 mmol/L (136-145)
[2022-01-23 22:10] LABS: Potassium 2.4 mmol/L (3.5-5.1)
--- NOTE | 2022-01-23 22:32 | RAD REPORT ---
EXAM DESCRIPTION: CTAbdomen Pelvis W Contrast - 01/23/2022 10:18 pm CLINICAL HISTORY: ABD PAIN COMPARISON: Abdomen Pelvis W Contrast dated 09/23/2021; Abdomen Pelvis W Contrast dated 08/27/20 21; UPPER EXTREMITY VENOUS BILAT dated 12/17/2021; Chest Abdomen Pelvis W Cont dated 12/16/2021 TECHNIQUE: CT of the abdomen and pelvis was performed. All CT scans are performed using dose optimization technique as appropriate and may include automated exposure control or mA/KV adjustment according to patient size. FINDINGS: Lower chest: No acute abnormality. Small hiatal hernia. Port-A-Cath tip in the right atriu m. Liver: Liver masses are not significantly changed in size. Largest is in the dome measuring approxima tely 6.7 cm, previously 7.3 cm. The lesion in segment 4 of the liver measuring 2.6 cm has increased i n size previously measuring 2.3 cm. Biliary: Cholecystectomy. Stomach: Partial gastrectomy. Duodenum: No significant focal abnormality. Pancreas: No significant abnormality. Spleen: No significant abnormality. Adrenal: No suspicious lesions. Kidney/ureter: No hydronephrosis. No renal calculi. Retroperitoneum: No retroperitoneal adenopathy. Vascular: No aneurysm. Bowel: No significant focal abnormality. Peritoneum: Perirectal lymph nodes have slightly decreased in size. Example, one measures 12 millimet ers, previously 15 millimeters . Fat containing left inguinal hernia. Bladder: Grossly unremarkable. Reproductive: No adnexal masses. Bones: No acute fracture. Other: n/a IMPRESSION: No acute intra-abdominal or pelvic finding. Known metastatic disease including multiple liver lesions and perirectal lymph nodes. Mixed response noted with some lesions increasing and others decreased in size.
[2022-01-23 22:38] LABS: Blood Morphology Comment NOT SEEN (NOT SEEN); Platelet Estimate ADEQ
[2022-01-23] MEDS ORDERED: NA CHLORIDE 0.9% 500 ML ONE (22:39)
[2022-01-23] MEDS ORDERED: KCL 20 MEQ/100 mL IVPB 100 ML IV ONE (22:39)
[2022-01-23 22:47] LABS: Urine Blood Negative (Negative); Urine Glucose Negative (Negative); Urine Protein Negative (Negative); Urine Specific Gravity <=1.005 (1.005-1.030)
[2022-01-23 23:17] LABS: Urine Bacteria <20 /HPF (<20); Urine RBC NONE SEEN /HPF (NONE SEEN)
--- NOTE | 2022-01-23 23:43 | ER ---
Nurse's Notes [facility] Name: Ailin Dickson Age: 51 yrs Sex: Female : 1970 Arrival Date: 01/23/2022 Time: 18:45 Bed 20 Private MD: Marco Antonio Lopez Diagnosis: Hypokalemia;Leukocytosis Presentation: 01/23 20:03 Chief complaint: Patient states: ABD pain 5/10 began today at 1600 today. BG swelling ld1 to Lower extremities. Coronavirus screen: At this time, the client does not indicate any symptoms associated with coronavirus-19. Ebola Screen: No symptoms or risks identified at this time. Initial Sepsis Screen: Does the patient meet any 2 criteria? No. Patient's initial sepsis screen is negative. Does the patient have a suspected source of infection? No. Patient's initial sepsis screen is negative. Risk Assessment: Do you want to hurt yourself or someone else? Patient reports no desire to harm self or others. Onset of symptoms was January 23, 2022. 20:03 Method Of Arrival: Ambulatory ld1 20:03 Acuity: MADDI 3 ld1 Triage Assessment: 20:04 General: Appears in no apparent distress. uncomfortable, Behavior is calm, cooperative, ld1 appropriate for age. Pain: Complains of pain in abdomen Pain does not radiate. Pain currently is 5 out of 10 on a pain scale. Quality of pain is described as throbbing, Pain began suddenly, Is continuous. Neuro: Level of Consciousness is awake, alert, obeys commands, Oriented to person, place, time, situation. Cardiovascular: Capillary refill < 3 seconds Patient's skin is warm and dry. Respiratory: Airway is patent Respiratory effort is even, unlabored. GI: Abdomen is round non-distended, Reports lower abdominal pain, upper abdominal pain. 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 - Social history:: Smoking status: Patient denies any tobacco usage or history of. Patient uses alcohol, occasionally. Screenin:34 Abuse screen: Denies threats or abuse. Nutritional screening: No deficits noted. ss7 Tuberculosis screening: No symptoms or risk factors identified. Fall Risk IV access (20 points). Assessment: 21:19 Reassessment: Pt pulled from lobby to attempt int. 3 unsuccessful attempts prior to ss7 myself. 2 unsuccessful attempt per me with 22G Diffusics. Will continue to monitor pt. SS. 21:32 General: Appears uncomfortable, Behavior is calm, cooperative, appropriate for age. ss7 Pain: Complains of pain in abdomen and umbilical area. Neuro: No deficits noted. Cardiovascular: Heart tones S1 S2. Cardiovascular: Edema is 1+ to left ankle, left foot, left toes, right ankle, right foot and right toes. Respiratory: Breath sounds are clear bilaterally. GI: Bowel sounds present X 4 quads. Abd is soft Abdomen is tender to palpation in umbilical area, right lower quadrant and left lower quadrant. : No deficits noted. EENT: No deficits noted. Derm: No deficits noted. Musculoskeletal:. 22:20 Reassessment: Patient is alert, oriented x 3, equal unlabored respirations, skin bb warm/dry/pink. IV site intact, no erythema or edema noted. Patient states feeling better. 23:04 Reassessment: phlebotomy at bedside for lab draw. bb 01/24 00:17 Reassessment: Patient is alert, oriented x 3, equal unlabored respirations, skin bb warm/dry/pink. pt able to ambulate with steady gait to bathroom. IV site intact, patent, with fluids infusing, pt instructed on need for admission. 02:00 Reassessment: pt sleeping, eyes closed, resp unlabored, IV site intact, patent, with bb fluids infusing. Vital Signs: 01/23 20:03 BP 108 / 81; Pulse 70; Resp 18; Temp 98.1; Pulse Ox 100% on R/A; Weight 83.91 kg; ld1 Height 5 ft. 6 in. (167.64 cm); Pain 5/10; 21:20 BP 117 / 62; Pulse 63; Resp 18; Pulse Ox 100% on R/A; ss7 01/24 00:10 BP 110 / 76; Pulse 60; Resp 16; Pulse Ox 100% on R/A; bb 01:00 BP 105 / 68; Pulse 71; Resp 16 S; Temp 98(O); Pulse Ox 98% on R/A; bb 01/23 20:03 Body Mass Index 29.86 (83.91 kg, 167.64 cm) ld1 ED Course: 01/23 18:45 Patient arrived in ED. as 18:45 Marco Antonio Lopez DO is Private Physician. as 18:54 Sylvester Ritter NP is PHCP. pm1 18:54 Valentino Salas DO is Attending Physician. pm1 19:57 Extrem Venous W Compression Bg US In Process Unspecified. EDMS 20:04 Triage completed. ld1 20:04 Arm band placed on right wrist. ld1 21:21 Trudi Aponte, RN is Primary Nurse. ss7 21:34 Patient has correct armband on for positive identification. Placed in gown. Bed in low ss7 position. Call light in reach. 21:34 No provider procedures requiring assistance completed. ss7 21:46 CBC with Diff Sent. ss7 21:46 CMP Sent. ss7 21:46 Lipase Sent. ss7 22:18 CT Abd/Pelvis - IV Contrast Only In Process Unspecified. EDMS 22:49 Jigna Sue, MIREILLE is Primary Nurse. bb 23:41 Prince Fonseca MD is Hospitalizing Provider. pm1 01/24 00:18 Patient admitted, IV remains in place. bb 00:29 Prince Low MD is Hospitalizing Provider. la1 07:03 PHCP role handed off by Sylvester Ritter NP bb Administered Medications: 01/23 21:46 Drug: morphine 4 mg Route: IVP; Site: right antecubital; ss7 21:46 Drug: Zofran (Ondansetron) 4 mg Route: IVP; Site: right antecubital; ss7 22:40 Drug: Cefepime 2 grams Route: IVPB; Rate: 200 ml/hr; Infused Over: 30 mins; Site: right bb antecubital; 23:15 Follow up: IV Status: Completed infusion; IV Intake: 100ml bb 22:49 Drug: Potassium Chloride 20 mEq Route: IV; Rate: calculated rate; Site: right bb antecubital; 01/24 04:05 Follow up: IV Status: Completed infusion; IV Intake: 100ml ; potassium was paused for bb administration of antibiotics 01/23 23:45 Drug: vancoMYCIN 1 grams Route: IVPB; Infused Over: 2 hrs; Site: right antecubital; bb 01/24 03:03 Follow up: IV Status: Completed infusion; IV Intake: 250ml bb 00:16 Drug: Potassium Effervescent Tablet 50 mEq Route: PO; bb 02:08 Follow up: Response: No adverse reaction bb Intake: 01/23 23:15 IV: 100ml; Total: 100ml. bb 01/24 03:03 IV: 250ml; Total: 350ml. bb 04:05 IV: 100ml; Total: 450ml. bb Outcome: 01/23 23:42 Decision to Hospitalize by Provider. pm1 01/24 00:18 Condition: stable bb Instructed on the need for admit. 02:00 Admitted to ER Hold. Please see [facility] for further documentation. bb 07:00 Patient left the ED. sv1 16:34 Patient left the ED. cb5 Signatures: Dispatcher [employer] EDCamila Green Brenda, RN RN bb Eric Manjarrez, PROJECT ARCHITECT-C PROJECT ARCHITECT-Cla1 Sylvester Ritter, MOLD CONSTRUCTION SUPERVISOR MOLD CONSTRUCTION SUPERVISOR pm1 Dilma Prince RN RN ld1 Julián Silveira RN RN sv1 Soila Singleton RN RN cb5 Trudi Aponte RN RN ss7
--- NOTE | 2022-01-23 23:43 | EDPHYS ---
Physician Documentation [facility] Name: Ailin Dickson Age: 51 yrs Sex: Female : 1970 Arrival Date: 01/23/2022 Time: 18:45 Bed 20 Private MD: [facility] ED Physician Valentino Salas HPI: 01/23 19:09 This 51 yrs old Female presents to ER via Unassigned with complaints of Abdominal Pain, pm1 Leg Swelling, Feet Swelling, Nausea. 19:09 The patient presents with abdominal pain Mid-abdomen area. Onset: The symptoms/episode pm1 began/occurred today. The symptoms do not radiate. Associated signs and symptoms: Pertinent positives: nausea, Pertinent negatives: constipation, dysuria, fever, vomiting. The symptoms are described as crampy. Modifying factors: The symptoms are alleviated by Improvement with BM today. Patient reports loose small bowel movement and a large loose bowel movement. Loose bowel movements and diarrhea are typical for her with chemotherapy for colon cancer. Severity of pain: in the emergency department the pain has improved mildly. The patient has experienced similar episodes in the past, a few times, Patient reports she does not typically have chronic pain with her colon cancer. The patient has not recently seen a physician. Bilateral lower extremity swelling onset yesterday. She attributes to reported increased PO intake of salty substances, primarily pickles. 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 - Social history:: Smoking status: Patient denies any tobacco usage or history of. Patient uses alcohol, occasionally. ROS: 19:09 Constitutional: Negative for fever, chills, and weight loss, Respiratory: Negative for pm1 shortness of breath, cough, wheezing, and pleuritic chest pain. 19:09 Back: Negative for injury and pain, MS/Extremity: Negative for injury and deformity, Skin: Negative for injury, rash, and discoloration, Neuro: Negative for headache, weakness, numbness, tingling, and seizure. 19:09 Cardiovascular: Positive for edema, bilateral lower extremity. 19:09 Abdomen/GI: Positive for abdominal pain, nausea, Negative for vomiting, diarrhea, constipation. 19:09 All other systems are negative. Exam: 19:09 Constitutional: This is a well developed, well nourished patient who is awake, alert, pm1 and in no acute distress. Head/Face: Normocephalic, atraumatic. 19:09 Back: No spinal tenderness. No costovertebral tenderness. Full range of motion. Skin: Warm, dry with normal turgor. Normal color with no rashes, no lesions, and no evidence of cellulitis. MS/ Extremity: Pulses equal, no cyanosis. Neurovascular intact. Full, normal range of motion. 19:09 Cardiovascular: Exam negative for acute changes, Rate: normal, Rhythm: regular, Pulses: no pulse deficits are appreciated, Edema: 2+ edema to level of left ankle and right ankle. 19:09 Respiratory: Exam negative for acute changes, respiratory distress, shortness of breath. 19:09 Abdomen/GI: Palpation: soft, in all quadrants, mild abdominal tenderness, in the umbilical area. 19:09 Neuro: Exam negative for acute changes, Orientation: is normal, Mentation: is normal, Motor: moves all fours. Vital Signs: 20:03 BP 108 / 81; Pulse 70; Resp 18; Temp 98.1; Pulse Ox 100% on R/A; Weight 83.91 kg; ld1 Height 5 ft. 6 in. (167.64 cm); Pain 5/10; 21:20 BP 117 / 62; Pulse 63; Resp 18; Pulse Ox 100% on R/A; ss7 01/24 00:10 BP 110 / 76; Pulse 60; Resp 16; Pulse Ox 100% on R/A; bb 01:00 BP 105 / 68; Pulse 71; Resp 16 S; Temp 98(O); Pulse Ox 98% on R/A; bb 01/23 20:03 Body Mass Index 29.86 (83.91 kg, 167.64 cm) ld1 MDM: 01/23 19:15 Patient medically screened. pm1 23:24 Counseling: I had a detailed discussion with the patient and/or guardian regarding: lab pm1 results, radiology results, Will consult with her oncologist. 23:24 Physician consultation:. ED course: No answer. Left message for Dr. Khan. pm1 23:35 ED course: Discussed leukocytosis with patient. Elevation is possibly Neupogen pm1 injection she received on Tuesday. Discussed with attending, no current infective source, lactate and procalcitonin negative, and patient afebrile. No antibiotics recommended at the moment. 23:38 Physician consultation: Eric TORRES was contacted at 23:38, regarding admission, pm1 patient's condition, and will see patient in ED, would like medications started, Cefepime and Vancomycin. 23:59 Data reviewed: vital signs. Data interpreted: Pulse oximetry: on room air is 100 %. pm1 Interpretation: normal. 01/23 19:09 Order name: CBC with Diff; Complete Time: 22:40 pm1 01/23 19:09 Order name: CMP; Complete Time: 23:59 pm1 01/23 19:09 Order name: Lipase; Complete Time: 23:59 pm1 01/23 21:54 Order name: Manual Differential; Complete Time: 22:40 EDMS 01/23 22:10 Order name: Blood Culture Adult (2) pm1 01/23 22:11 Order name: Procalcitonin; Complete Time: 23:15 pm1 01/23 22:11 Order name: Lactate; Complete Time: 23:34 pm1 01/23 22:47 Order name: Urine Dipstick-Ancillary; Complete Time: 23:15 EDMS 01/23 22:47 Order name: Urine Microscopic Only [facility] 01/23 22:48 Order name: Urine Microscopic Only; Complete Time: 23:34 EDMS 01/23 22:50 Order name: Urine --Ancillary (enter results) 9 01/23 22:55 Order name: Test Serum, [place]; Complete Time: 23:59 EDMS 01/23 23:34 Order name: Magnesium pm1 01/23 19:09 Order name: CT Abd/Pelvis - IV Contrast Only; Complete Time: 22:40 pm1 01/23 19:09 Order name: Extrem Venous W Compression Pratik US; Complete Time: 20:36 pm1 01/23 23:43 Order name: Magnesium; Complete Time: 23:59 EDMS 01/24 05:03 Order name: CBC with Automated Diff EDMS 01/24 05:51 Order name: Comprehensive Metabolic Panel EDMS 01/24 05:51 Order name: Magnesium EDMS 01/24 07:09 Order name: COVID-19 SARS RT PCR (Document "Date of Onset" if Symptomatic) lp1 01/24 08:22 Order name: SARS-COV-2 RT PCR EDVA 01/24 09:32 Order name: RAD EDVA 01/23 19:09 Order name: IV Saline Lock; Complete Time: 21:46 pm1 01/23 19:09 Order name: Labs collected and sent; Complete Time: 21:46 pm1 01/23 23:47 Order name: EKG; Complete Time: 23:48 pm1 01/23 23:47 Order name: EKG - Nurse/Tech; Complete Time: 01:43 pm1 Administered Medications: 21:46 Drug: morphine 4 mg Route: IVP; Site: right antecubital; ss7 21:46 Drug: Zofran (Ondansetron) 4 mg Route: IVP; Site: right antecubital; ss7 22:40 Drug: Cefepime 2 grams Route: IVPB; Rate: 200 ml/hr; Infused Over: 30 mins; Site: right bb antecubital; 23:15 Follow up: IV Status: Completed infusion; IV Intake: 100ml bb 22:49 Drug: Potassium Chloride 20 mEq Route: IV; Rate: calculated rate; Site: right bb antecubital; 01/24 04:05 Follow up: IV Status: Completed infusion; IV Intake: 100ml ; potassium was paused for bb administration of antibiotics 01/23 23:45 Drug: vancoMYCIN 1 grams Route: IVPB; Infused Over: 2 hrs; Site: right antecubital; bb 01/24 03:03 Follow up: IV Status: Completed infusion; IV Intake: 250ml bb 00:16 Drug: Potassium Effervescent Tablet 50 mEq Route: PO; bb 02:08 Follow up: Response: No adverse reaction bb Disposition: 01/25 02:08 Co-signature as Attending Physician, Valentino Salas DO I agree with the assessment and ms3 plan of care. Disposition Summary: 01/23/22 23:42 Hospitalization Ordered Hospitalization Status: Inpatient Admission pm1 Condition: Stable pm1 Problem: new pm1 Symptoms: have improved pm1 Bed/Room Type: Standard pm1 Provider: Prince Low(01/24/22 00:29) la1 Location: Telemetry/MedSurg (Inpatient)(01/24/22 15:11) dw Room Assignment: 409(01/24/22 15:11) dw Diagnosis - Hypokalemia pm1 - Leukocytosis pm1 Forms: - Medication Reconciliation Form pm1 - SBAR form pm1 Signatures: Dispatcher [employer] EDMS Steph Mario RN RN Jigna Moscoso, RN RN bb Eric Manjarrez, PROP MAKER-C PROP MAKER-Capo1 Mecca Sorenson RN RN cg Sylvester Ritter, JUANITA PROFILER HAND pm1 Valentino Salas DO DO ms3 Dilma Prince RN RN ld1 Trudi Aponte RN RN ss7 Corrections: (The following items were deleted from the chart) 01/23 22:54 22:51 Urine --Ancillary ordered. EDVA EDMS 23:42 23:36 Magnesium ordered. EDVA EDMS 01/24 00:29 01/23 23:42 Jose Fonsecae pm1 la1 01/24 03:10 01/23 23:42 Telemetry/MedSurg (Inpatient) pm1 cg 01/24 03:10 01/23 23:42 pm1 01/24 15:11 03:10 [facility] ER HOLD cg 15:11 03:10 ERHOLD- cg dw
[2022-01-23 23:48] LABS: Magnesium 1.8 mg/dL (1.8-2.4)
[2022-01-23] MEDS ORDERED: CEFEPIME 2 GM VIAL ONE (23:49)
[2022-01-23] MEDS ORDERED: NA CHLORIDE 0.9% 100 ML IV ONE (23:49)
[2022-01-24] MEDS ORDERED: POTASSIUM 25 MEQ EFFERV TAB ONE (00:09)
--- NOTE | 2022-01-24 00:48 | P.HP ---
Certification for Inpatient Patient admitted to: Inpatient With expected LOS: >2 Midnights Patient will require the following post-hospital care: None Practitioner: I am a practitioner with admitting privileges, knowledge of patient current condition, hospital course, and medical plan of care. Services: Services provided to patient in accordance with Admission requirements found in Title 42 Section 412.3 of the Code of Federal Regulations Patient History Date of Service: 01/24/22 History of Present Illness: 51-year-old female with history of stage IV colon cancer with mets to liver on chemotherapy, diabetes mellitus type 2diet controlled, hyperlipidemia presents the emergency department for abdominal pain, lower extremity swelling. Patient gets chemo every other week last chemo finished on January 20, patient also received Neupogen injection on the as well. Patient was evaluated here in the emergency department found to have significant inge kocytosis with a white blood cell count of 43.6 10% bandemia and a potassium of 2.4. Procalcitonin 0.15 lactic acid 1.2 urinalysis negative for infection chest x-ray unremarkable CT of the abdomen and pelvis demonstrated known metastatic disease including multiple liver lesions and perirectal lymph nodes, mixed response noted with some lesions increasing other decreasing in size. 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 Will need to admit for further evaluation and management. Allergies No Known Allergies Allergy (Verified 09/21/21 10:32) Home Medications: Enoxaparin Sodium [Lovenox 100 MG INJ*] 90 mg SQ Q12HR #60 syr 11/04/21 - Past Medical/Surgical History Diabetic: Yes -: stage 4 adenocarcinoma mets to colon and to liver -: Hyperlipidemia -: Diabetes mellitus type 2diet controlled -: IJ blood clot on anticoagulation -: gastric bypass 07/2021 -: good -: appy -: C section -: portacath placement Psychosocial/ Personal History: Lives at home with family - Family History Family History: Reviewed- Non-Contributory - Social History Smoking Status: Never smoker Alcohol use: No CD- Drugs: No Caffeine use: Yes Place of Residence: Home Review of Systems 10-point ROS is otherwise unremarkable General: Malaise Gastrointestinal: Nausea, Abdominal Pain, Diarrhea Physical Examination - Physical Exam General: Alert, In no apparent distress, Oriented x3 HEENT: Atraumatic, PERRLA, Mucous membr. moist/pink, EOMI, Sclerae nonicteric Neck: Supple, 2+ carotid pulse no bruit, No LAD, Without JVD or thyroid abnormality Respiratory: Clear to auscultation bilaterally, Normal air movement Cardiovascular: Regular rate/rhythm, Normal S1 S2 Gastrointestinal: Normal bowel sounds, No tenderness Musculoskeletal: No tenderness Integumentary: No rashes Neurological: Normal speech, Normal strength at 5/5 x4 extr, Normal tone, Normal affect - Studies Laboratory Data (last 24 hrs) 01/23/22 23:34: Magnesium Cancelled 01/23/22 21:40: Sodium 141, Potassium 2.4 L*, BUN 10, Creatinine 0.39 L, Glucose 81, Magnesium 1.8, Total Bilirubin 0.7, AST 39 H, ALT 41, Alkaline Phosphatase 138 H, Lipase 81 01/23/22 21:40: WBC 43.60 H*, Hgb 10.8 L, Hct 32.5 L, Plt Count 268 Assessment and Plan - Plan Assessment: Hypokalemia Leukocytosis/bandemia Diarrhea Stage IV colon cancer with mets to the liver IJ blood clot on anticoagulation Diabetes mellitus type 2diet controlled Hyperlipidemia Plan: Hypokalemia: Replaced in the ER, protocol in place. Leukocytosis/bandemia: White blood cell count 46 10% bands, no source of infection identified on reports patient does have a Port-A-Cath in place to the right anterior chest wall as well as has been having diarrhea. Patient did also receive Neupogen injection on the 16 of this month. ED provider attempted to reach out to oncology but they were unavailable this evening will cover with broad-spectrum antibiotics for time being. If oncology believes this is related Neupogen and not infectious process can likely discontinue antibiotics. C. difficile studies ordered as well given diarrhea and very high white blood cell count. 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 Patient does not appear to be septic at this time blood cultures were obtained. Diarrhea: Stool studies ordered. Stage IV colon cancer with mets to the liver: Stable continue outpatient therapy with oncology/chemo. IJ blood clot on anticoagulation: Continue Eliquis 5 mg p.o. twice daily Diabetes mellitus type 2diet controlled: Monitor blood sugar with daily labs if elevated will provide with a [facility] Accu-Chek and sliding scale insulin. Hyperlipidemia: Obtain and continue home meds DVT PPX: Continue Eliquis 5 mg p.o. twice daily Code status: Full Discharge Plan: Home Plan to discharge in: 48 Hours - Advance Directives Does patient have a Living Will: No Does patient have a Durable POA for Healthcare: No - Code Status/Comfort Care Code Status Assessed: Yes (Full code) Critical Care: No Time Spent Managing Pts Care (In Minutes): 55
[2022-01-24] MEDS ORDERED: NA CHLORIDE 0.9% 250 ML ONE (01:20)
[2022-01-24] MEDS ORDERED: VANCOMYCIN 1 GM/VIAL ONE (01:20)
[2022-01-24] MEDS ORDERED: HYDROCODONE/APAP 5/325 MG TAB PO PRN (02:35)
[2022-01-24] MEDS ORDERED: ONDANSETRON 4 MG/2 ML VIAL IV PRN (02:35)
[2022-01-24 05:02] LABS: Absolute Lymphocytes (CBC) 1.4 K/uL (0.7-4.9); Hematocrit 29.3 % (36.0-45.0); Lymphocytes % 3.3 % (15.3-44.8); MPV 7.6 fL (7.6-11.3); RBC Red Blood Cell Count 3.35 M/uL (3.86-4.86)
[2022-01-24 05:31] LABS: ALT/SGPT 32 U/L (12-78); AST/SGOT 31 U/L (15-37); Albumin 2.4 g/dL (3.4-5.0); Alkaline Phosphatase 124 U/L (45-117); BUN Blood Urea Nitrogen 6 mg/dL (7-18); Bicarbonate 33 mmol/L (21-32); Bilirubin Total 0.7 mg/dL (0.2-1.0); Glucose Level 80 mg/dL (74-106); Magnesium 1.7 mg/dL (1.8-2.4); Protein, Total 5.6 g/dL (6.4-8.2); Sodium Level 143 mmol/L (136-145)
[2022-01-24 05:51] LABS: Potassium 2.8 mmol/L (3.5-5.1)
[2022-01-24 06:12] VITALS: BMI 29.7
[2022-01-24] MEDS ORDERED: MAGNESIUM SULFATE 1 gm IVPB 1 GM/100 ML BAG IV ONE ×2 (06:20→06:28)
[2022-01-24] MEDS ORDERED: KCL 20 MEQ/100 mL IVPB 100 ML IV ONE (06:40)
[2022-01-24] MEDS: KCL 20 MEQ/100 mL IVPB 20 MEQ/100 ML BAG IV SCH ×6 (07:00→23:35)
[2022-01-24 07:23] VITALS: O2SAT 98
[2022-01-24] MEDS ORDERED: METRONIDAZOLE 500mg IVPB 500 MG/100 ML BAG IV SCH (09:00)
[2022-01-24] MEDS ORDERED: CEFEPIME 1 GM in NA CHLORIDE 0.9% 100 ML IV SCH (09:00)
[2022-01-24] MEDS: APIXABAN 5 MG TABLET PO SCH ×2 (09:00→21:01)
[2022-01-24] MEDS ORDERED: POTASSIUM CL SA 10 MEQ TAB PO ONE (09:15)
[2022-01-24] MEDS ORDERED: METRONIDAZOLE 500mg IVPB 500 MG/100 ML BAG IV ONE (09:29)
[2022-01-24] MEDS ORDERED: NA CHLORIDE 0.9% 100 ML IV ONE (09:29)
[2022-01-24] MEDS ORDERED: CEFEPIME 1 GM/VIAL ONE (09:29)
[2022-01-24] MEDS ORDERED: APIXABAN 5 MG TABLET ONE (09:30)
--- NOTE | 2022-01-24 09:32 | RAD REPORT ---
EXAM DESCRIPTION: RAD - Chest Single View - 01/24/2022 8:46 am CLINICAL HISTORY: r/o occult infection, shortness of breath COMPARISON: Portable 11/02/2021 TECHNIQUE: AP portable chest image was obtained 01/24/2022 8:46 am . FINDINGS: No focal pneumonia seen. No acute lung parenchymal process identified. The interstitial pa ttern is similar to comparison. Trachea remains midline. Since prior imaging the right jugular Port-A-Cath has been replaced with a l eft-sided Port-A-Cath. Tip of the Port-A-Cath is at the distal SVC. Heart and vasculature are normal. No measurable pleural effusion and no pneumothorax. No acute bony abnormality seen. No acute aortic findings suspected. IMPRESSION: No acute cardiopulmonary process.
[2022-01-24] MEDS ORDERED: NA CHLORIDE 0.9% 1,000 ML ONE (10:19)
[2022-01-24] MEDS ORDERED: HYDROCODONE/APAP 5/325 MG TAB ONE (14:34)
[2022-01-24] MEDS: GABAPENTIN 300 MG CAP PO PRN (21:04)
[2022-01-24 23:33] LABS: Urine Appearance CLEAR (Clear); Urine Bilirubin NEGATIVE (Negative); Urine Blood NEGATIVE (Negative); Urine Color YELLOW (Yellow); Urine Glucose NEGATIVE (Negative); Urine Protein NEGATIVE (Negative); Urine Urobilinogen 0.2 mg/dL (0.2-1.0); Urine pH 7.5 (5.0-7.0)
[2022-01-24 23:54] LABS: Urine Microscopic Reflex NO UMIC
[2022-01-25 05:10] VITALS: TEMP 97.4
[2022-01-25 07:40] LABS: Hematocrit 27.1 % (36.0-45.0); MPV 7.4 fL (7.6-11.3); RBC Red Blood Cell Count 3.07 M/uL (3.86-4.86)
[2022-01-25 07:58] LABS: ALT/SGPT 28 U/L (12-78); AST/SGOT 26 U/L (15-37); Albumin 2.3 g/dL (3.4-5.0); Alkaline Phosphatase 135 U/L (45-117); BUN Blood Urea Nitrogen 4 mg/dL (7-18); Bicarbonate 34 mmol/L (21-32); Bilirubin Total 0.4 mg/dL (0.2-1.0); Glucose Level 91 mg/dL (74-106); Magnesium 2.1 mg/dL (1.8-2.4); Potassium 3.4 mmol/L (3.5-5.1); Protein, Total 5.4 g/dL (6.4-8.2); Sodium Level 143 mmol/L (136-145)
[2022-01-25] MEDS ORDERED: NA CHLORIDE 0.9% 500 ML IV ONE (08:10)
[2022-01-25] MEDS ORDERED: POTASSIUM CL SA 10 MEQ TAB PO ONE (08:10)
--- NOTE | 2022-01-25 08:22 | EKG ---
Test Date: 2022-01-24 Test Time: 01:31:09 Building Attendant: GIULIANA MEASUREMENT RESULTS: Intervals: Rate: 70 IN: 148 QRSD: 92 QT: 430 QTc: 464 [place]: P: 23 IN: 148 QRS: -9 T: 17 INTERPRETIVE STATEMENTS: Normal sinus rhythm Low voltage QRS Cannot rule out Anterior infarct, age undetermined Abnormal ECG Compared to ECG 11/02/2021 20:23:04 Low QRS voltage now present ST (T wave) deviation no longer present Possible ischemia no longer present Prolonged QT interval no longer present Myocardial infarct finding still present Electronically Signed On 01-25-22 08:19:51 CDT by Joe Wilkins
[2022-01-25] MEDS: GABAPENTIN 300 MG CAP PO PRN (08:33)
[2022-01-25] MEDS: APIXABAN 5 MG TABLET PO SCH (08:33)
[2022-01-25 08:46] VITALS: BP 99/63
--- NOTE | 2022-01-25 17:56 | P.DS ---
Admission Date: 01/24/22 Discharge Date: 01/25/22 Disposition: ROUTINE DISCHARGE Discharge Condition: GOOD Reason for Admission: abdominal pain, diarrhea, leukocytosis Procedures: Problem List Leukocytosis/bandemia likely secondary to recent steroid and neupogen use Hypokalemia secondary to GI loss - diarrhea Stage IV colon cancer with mets to the liver IJ blood clot on anticoagulation Diabetes mellitus type 2diet controlled Hyperlipidemia Brief History of Present Illness: 51-year-old female with history of stage IV colon cancer with mets to liver on chemotherapy, diabetes mellitus type 2diet controlled, hyperlipidemia presents the emergency department for abdominal pain, lower extremity swelling. Patient gets chemo every other week last chemo finished on January 20, patient also received Neupogen injection on the as well. Patient was evaluated here in the emergency department found to have significant leukocytosis with a white blood cell count of 43.6 10% bandemia and a potassium of 2.4. Procalcitonin 0.15 lactic acid 1.2 urinalysis negative for infection chest x-ray unremarkable CT of the abdomen and pelvis demonstrated known metastatic disease including multiple liver lesions and perirectal lymph nodes, mixed response noted with some lesions increasing other decreasing in size. 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 Will need to admit for further evaluation and management. Hospital Course: Patient was treated with empiric antibiotics, IV fluid hydration, and electrolyte replacement. Chest x-ray and CT abd/pelvis did not reveal any acute infectious etiology. Antibiotics were discontinued on 01/24 She had quick resolution of her symptoms. No vomiting, non diarrhea. Her symptoms were similar to what she feels/gets after she receives chemo. The leukocytosis was attributed to the neupogen and steroids she received with/after chemo a few days ago. Her leukocytosis improved from 45k to 25k. Remained afebrile. Discharged home to follow up with PCP within 1 week Follow up with Heme/Onc as scheduled. To have repeat blood work in the next ~1-2 weeks. Prescribed 15meq daily potassium, which can be titrated after the next set of bloodwork. Patient instructed on return precautions. Vital Signs/Physical Exam: Temp Pulse Resp BP Pulse Ox 97.4 F 60 18 99/63 100 01/25/22 08:00 01/25/22 08:00 01/25/22 08:00 01/25/22 08:00 01/25/22 08:00 General: Alert, In no apparent distress, Oriented x3 HEENT: Mucous membr. moist/pink, Sclerae nonicteric Respiratory: Clear to auscultation bilaterally, Normal air movement Cardiovascular: Regular rate/rhythm, Edema (trace b/l to knees) Gastrointestinal: Soft and benign, Non-distended, Tenderness (mild) Musculoskeletal: No tenderness Integumentary: No significant lesion, No tenderness/swelling Neurological: Normal speech, Normal affect Laboratory Data at Discharge: WBC 25.80 K/uL (4.3-10.9) H* D 01/25/22 07:03 Hgb 9.0 g/dL (12.0-15.0) L 01/25/22 07:03 Hct 27.1 % (36.0-45.0) L 01/25/22 07:03 Plt Count 167 K/uL (152-406) D 01/25/22 07:03 Sodium 143 mmol/L (136-145) 01/25/22 07:03 Potassium 3.4 mmol/L (3.5-5.1) L 01/25/22 07:03 BUN 4 mg/dL (7-18) L 01/25/22 07:03 Creatinine 0.25 mg/dL (0.55-1.3) L 01/25/22 07:03 Glucose 91 mg/dL (74-106) 01/25/22 07:03 Magnesium 2.1 mg/dL (1.8-2.4) 01/25/22 07:03 Total Bilirubin 0.4 mg/dL (0.2-1.0) 01/25/22 07:03 AST 26 U/L (15-37) 01/25/22 07:03 ALT 28 U/L (12-78) 01/25/22 07:03 Alkaline Phosphatase 135 U/L (45-117) H 01/25/22 07:03 Lipase 81 U/L (73-393) 01/23/22 21:40 Home Medications: Apixaban [Eliquis] 1 tab PO BID 01/24/22 Gabapentin 1 tab PO TID 01/24/22 Hydrocodone 5/APAP 325 [[place] 5/325*] 1 tab PO Q4H 01/24/22 Potassium Chloride [Klor-Con M15] 15 meq PO DAILY 14 Days #14 tab.er.prt 01/25/22 New Medications: Potassium Chloride [Klor-Con M15] 15 meq PO DAILY 14 Days #14 tab.er.prt Physician Discharge Instructions: Patient was treated with empiric antibiotics, IV fluid hydration, and electrolyte replacement. Chest x-ray and CT abd/pelvis did not reveal any acute infectious etiology. Antibiotics were discontinued on 01/24 She had quick resolution of her symptoms. No vomiting, non diarrhea. Her symptoms were similar to what she feels/gets after she receives chemo. The leukocytosis was attributed to the neupogen and steroids she received with/after chemo a few days ago. Her leukocytosis improved from 45k to 25k. Remained afebrile. Discharged home to follow up with PCP within 1 week Follow up with Heme/Onc as scheduled. To have repeat blood work in the next ~1-2 weeks. Prescribed 15meq daily potassium, which can be titrated after the next set of bloodwork. Patient instructed on return precautions. Followup: Marco Antonio Lopez, [Primary Care Provider] - 1 Week (call to schedule an appointment ) Time spent managing pt's care (in minutes): 45
== END 2022-01-25 09:45 | disposition home or self-care (01) | DRG 815 ==
LOC: ER 18:44 → ERHOLD 01-24 00:31 → 4TH 01-24 16:13
PROVIDERS: ADMIT Hospitalist; ATTEND Hospitalist
DX: D72.829 Elevated white blood cell count, unspecified (principal); C18.9 Malignant neoplasm of colon, unspecified; K52.1 Toxic gastroenteritis and colitis; C78.7 Secondary malignant neoplasm of liver and intrahepatic bile duct; I74.8 Embolism and thrombosis of other arteries; E87.6 Hypokalemia; E78.5 Hyperlipidemia, unspecified; E11.9 Type 2 diabetes mellitus without complications; D72.825 Bandemia; T38.0X5A Adverse effect of glucocorticoids and synthetic analogues, initial encounter; T45.8X5A Adverse effect of other primarily systemic and hematological agents, initial encounter; T45.1X5A Adverse effect of antineoplastic and immunosuppressive drugs, initial encounter; Z90.49 Acquired absence of other specified parts of digestive tract; Z98.84 Bariatric surgery status; Z79.01 Long term (current) use of anticoagulants; Z79.899 Other long term (current) drug therapy; Z20.822 Contact with and (suspected) exposure to COVID-19
CPT/HCPCS: 36415; 71045; 74177; 80053; 81003; 81015; 83605; 83690; 83735; 84132; 84145; 84703; 85025; 87040; 93005; 93970; 96365; 96366; 96367; 96375; 99285; J0692; J2405; J3370; J3475; J3480; J7030; J7040; J7050; Q9967; U0003

== ENCOUNTER 2022-03-03 15:35 | Observation (INO) | payer BC ==
--- OUTSIDE RECORDS SUMMARY | 2022-03-03 15:38 | XMS REPORT | Continuity of Care Document ---
:[address] [facility] t Address [address] [place] [address] Care Team Providers Name Role Phone THALIA LOPEZ Primary Care Physician Unavailable Ghulam Lopez Attending Clinician Unavailable NGOZI TAMEZ Attending Clinician Unavailable BILLIE ALVES Attending Clinician Unavailable SANDY Attending Clinician Unavailable SANDY Attending Clinician Unavailable NIR HOOKS Attending Clinician Unavailable NGOZI TAMEZ Attending Clinician Unavailable JORGE Attending Clinician Unavailable Ngozi Tamez MD Attending Clinician Kiley PALENCIA Attending Clinician KILEY Attending Clinician Unavailable NGOZI TAMEZ Admitting Clinician Unavailable Payers Payer Name Policy Type Policy Number Effective Date Expiration Date S tera CIGNA [id number] 2018 00:00:00 HMO/POS/OPEN ACCESS BCBS PPO POS EPO [id number] 2021 00:00:00 CHOICE OUT OF STATE BCBS [id number] - PPO - BCBS OPEN ACCESS [id number] HMO/POS/EPO/PPO - AETNA NETWORK OPEN [id number] ACCESS - CIGNA CVCP-AETNA [id number] AETNA [facility] [id number] 2020 00:00:00 ACCESS Problems Condition Condition Condition Status Onset Resolution Last Treating Co mments Source Name Details Category Date Date Treatment Clinician Date Rectal Rectal Disease Active [facility] cancer cancer 2-22 College (HCCode) (HCCode) 00:00: of 00 Medicin e Allergies, Adverse Reactions, Alerts Allergy Allergy Status Severity Reaction(s) Onset Inactive Treating Comm ents Source Name Type Date Date Clinician NO KNOWN Allergy Active [facility] Social History Social Habit Start Date Stop Date Quantity Comments Source History [facility] ge Alcohol Frequency of Medi cine History [facility] ge Alcohol Std Drinks of Med icine History [facility] Alcohol Binge of Medicine Exposure to Yes [facility] e SARS-CoV-2 (event) of Med icine Alcohol intake 2021-12-28 2021-12-28 Current drinker [facility] 00:00:00 00:00:00 of alcohol of Medicine (finding) Alcohol Comment 2020-10-09 2020-10-09 social [facility] 00:00:00 00:00:00 of Medicine Tobacco use and 2020-10-09 2020-10-09 Smokeless tobacco Ba or [place] exposure 00:00:00 00:00:00 non-user of Medicine Sex [birth year] At [birth year] [facility] 00:00:00 00:00:00 of Medicine Smoking Status Start Date Stop Date Source Never smoked tobacco [facility] Eze ege of Medicine Medications Ordered Filled [...] 1 [facility] or azine 2-30 Tablet by [place] (COMPAZINE) 00:00: mouth of 10 MG 00 every 6 Medicin tablet hours as e needed for Nausea for up to 30 doses. Vitamin D, 2020-11 Yes 1{capsu Take 1 [facility] Ergocalc[facility] 0-11 le} capsule by Co claudette rol, 1.25 15:23: mouth of MG (12655 06 every 7 Medicin [place]) CAPS days. e pantoprazol 2020- No 20mg Take 1 [place] e 07-30 Tablet by [place] (PROTONIX) 00:00: 05:59 mouth of 20 MG 00 :00 daily for Medicin tablet 90 days. e Take everyday for 3 months pantoprazol 2020- No 20mg Take 1 [place] [facility] e 07-30 Tablet by [place] (PROTONIX) 00:00: 05:59 mouth of 20 MG 00 :00 daily for Medicin tablet 90 days. e Take everyday for 3 months pantoprazol 2020- No 20mg Take 1 [place] [facility] e 07-30 Tablet by [place] (PROTONIX) 00:00: 05:59 mouth of 20 MG [...] pain ondansetron 2020- No 4mg Take 1 [facility] (ZOFRAN-ODT 07-30 Tablet by Co llege [...] pain ondansetron 2020- No 4mg Take 1 [facility] (ZOFRAN-ODT 07-30 Tablet by Co llege [...] as needed for nausea Vitamin D, Yes [id number] TAKE 1 [facility] Ergocalc[facility] 6-03 CAPSULE BY Co llege aurelia, 1.25 00:00: MOUTH of MG (78454 00 EVERY 7 Medicin [place]) CAPS DAYS e Vitamin D, Yes [id number] TAKE 1 [facility] Ergocalcife 6-03 CAPSULE BY Co llege rol, 1.25 00:00: MOUTH of MG (50295 00 EVERY 7 Medicin [place]) CAPS DAYS e Vitamin D, Yes [id number] TAKE 1 [facility] Ergocalcife 6-03 CAPSULE BY Julien moses, 1.25 00:00: MOUTH of MG (26754 00 EVERY 7 Medicin [place]) CAPS DAYS e Vitamin D, 2020- No [id number] TAKE 1 [facility] Ergocalcife 6-03 10-11 CAPSULE BY Alfonso moses, 1.25 00:00: 00:00 MOUTH of MG (22030 00 :00 EVERY 7 Medicin [place]) CAPS [...] e sertraline 2019-11 Yes 1{tbl} Take 1 [facility] (ZOLOFT) 1-09 Tablet by Colleg e 100 MG 00:00: mouth of tablet 00 daily. Medicin e sertraline 2019-11 Yes 1{tbl} Take 1 [facility] (ZOLOFT) 1-09 Tablet by Colleg e 100 MG 00:00: mouth of tablet 00 daily. Medicin e sertraline 2019-11 Yes 1{tbl} Take 1 [facility] (ZOLOFT) 1-09 Tablet by Colleg e 100 MG 00:00: mouth of tablet 00 daily. Medicin e sertraline 2019-11 Yes 1{tbl} Take 1 [facility] (ZOLOFT) 1-09 Tablet by Colleg e 100 MG 00:00: mouth of tablet 00 daily. Medicin e sertraline 2019-11 Yes 1{tbl} Take 1 [facility] (ZOLOFT) 1-09 Tablet by Colleg e 100 MG 00:00: mouth of tablet 00 daily. Medicin e Continuous 2019-11 Yes 1{strip 1 Strip [facility] Blood Gluc 0-12 } See Admin Eze ege Sensor 00:00: Instructio of (FREESTYLE 00 ns. Medicin CAROL 2 e SENSOR SYSTM) [facility] Continuous 2019-11 Yes 1{strip 1 Strip [facility] Blood Gluc 0-12 } See Admin Eze ege Sensor 00:00: Instructio of (FREESTYLE 00 ns. Medicin CAROL 2 e SENSOR SYSTM) [facility] Continuous 2019-11- No 1{strip 1 Strip [facility] Blood Gluc 0-12 -23 } See Admin Col lege Sensor 00:00: 00:00 Instructio of (FREESTYLE 00 :00 ns. Medicin CAROL 2 e SENSOR SYSTM) [facility] Continuous 2019-11- No 1{strip 1 Strip [facility] Blood Gluc 0-12 -23 } See Admin Col lege Sensor 00:00: 00:00 Instructio of (FREESTYLE 00 :00 ns. Medicin CAROL 2 e SENSOR SYSTM) [facility] Atorvastati Atorvastati Yes Marco Antonio [address] [facility] [facility] Calcium n Calcium 07-15 [facility] Zoloft Zoloft Yes Marco Antonio Take 1/[address] 07-15 Lopez tab QD x 1 [facility] 00:[facility]: week then [facility] 00 [facility] Xigduo XR Xigduo XR 2020- No Marco Antonio [address] [facility] 07-15 12- Lopez [facility] - 00[facility] Clinics Immunizations Ordered Filled Immunization Date Status Comments Sour e Immunization Name Name PNEUMAVAX 23 PNEUMAVAX 23 2020-06-[address] [facility] - 00:00:00 [facility] Vital Signs Vital Name Observation Time Observation Value Comments Source HEIGHT 2021-08-04 06:30:00 167.6 cm WEIGHT 2021-08-04 06:30:00 114.76 kg HEIGHT 2021-08-03 08:40:00 167 cm WEIGHT 2021-08-03 08:40:00 102 kg Systolic blood 2021-12-28 20:37:00 118 mm[Hg] [facility] Medicine Diastolic blood 2021-12-28 20:37:00 73 mm[Hg] [facility] Medicine Heart rate 2021-12-28 20:37:00 90 /min [facility] Body temperature 2021-12-28 20:37:00 36.89 [facility] Body height 2021-12-28 20:37:00 167.6 cm [facility] Body weight 2021-12-28 20:37:00 85.367 kg [facility] BMI 2021-12-28 20:37:00 30.38 kg/m2 [facility] Systolic blood 2021-08-17 20:11:00 115 mm[Hg] [facility] Medicine Diastolic blood 2021-08-17 20:11:00 75 mm[Hg] [facility] Medicine Heart rate 2021-08-17 20:11:00 65 /min [facility] Body temperature 2021-08-17 20:11:00 36.83 [facility] Body height 2021-08-17 20:11:00 167.6 cm [facility] C ollege of Medicine Body weight 2021-08-17 20:11:00 108.41 kg [facility] C ollege of Medicine BMI 2021-08-17 20:11:00 38.58 kg/m2 [facility] C ollege of Medicine HEIGHT 2021-08-04 06:30:00 167.6 cm WEIGHT 2021-08-04 06:30:00 114.76 kg HEIGHT 2021-08-03 08:40:00 167 cm WEIGHT 2021-08-03 08:40:00 102 kg Systolic blood 2021 17:49:00 116 mm[Hg] [facility] pressure Medicine Diastolic blood 2021 17:49:00 79 mm[Hg] [facility] of pressure Medicine Heart rate 2021 17:49:00 82 /min [facility] ollege of [facility] Body temperature 2021 17:49:00 36.56 [facility] Body height 2021 17:49:00 167.6 cm [facility] C ollege of Medicine Body weight 2021 17:49:00 114.76 kg [facility] ollege of Medicine BMI 2021 17:49:00 40.84 kg/m2 [facility] ollege of Medicine Systolic blood 2020-10-09 14:14:00 117 mm[Hg] [facility] pressure Medicine Diastolic blood 2020-10-09 14:14:00 77 mm[Hg] [facility] pressure Medicine Heart rate 2020-10-09 14:14:00 98 /min [facility] ollege of Medicine Body temperature 2020-10-09 14:14:00 36.83 [facility] Body height 2020-10-09 14:14:00 167.6 cm [facility] C ollege of Medicine Body weight 2020-10-09 14:14:00 108.591 kg [facility] C ollege of Medicine BMI 2020-10-09 14:14:00 38.64 kg/m2 [facility] C ollege of Medicine Systolic blood 2020-10-09 14:14:00 117 mm[Hg] [facility] pressure Medicine Diastolic blood 2020-10-09 14:14:00 77 mm[Hg] [facility] pressure Medicine Heart rate 2020-10-09 14:14:00 98 /min [facility] Body temperature 2020-10-09 14:14:00 36.83 [facility] Body height 2020-10-09 14:14:00 167.6 cm [facility] Body weight 2020-10-09 14:14:00 108.591 kg [facility] BMI 2020-10-09 14:14:00 38.64 kg/m2 [facility] Procedures This patient has no known procedures. Plan of Care Planned Activity Planned Date Details Comments Source Future Scheduled 2022-02-15 CT CHEST W ABD/PELVIS Expected: [facility] Test 00:00:00 WO/W [code = 45468] 02/15/2022, of Medic ine Expires: 12/28/2022 Future Scheduled 2021-12-29 Screening for malignant [facility] Test 07:17:16 neoplasm of colon of Medicin e (procedure) [code = 955391636] Future Scheduled 2021-12-29 Screening for malignant [facility] Test 07:17:16 neoplasm of breast of Medici ne (procedure) [code = 760865797] Future Scheduled 2021-12-29 Hepatitis C screening [facility] Test 07:17:16 (procedure) [code = of Medic ine 044699482] Future Scheduled 2021-12-29 Human immunodeficiency [facility] College Test 07:17:16 virus screening of Medicine (procedure) [code = 792691868] Future Scheduled 2021-12-29 Screening for malignant [facility] Test 07:17:16 neoplasm of cervix of Medici ne (procedure) [code = 082670505] Future Scheduled 2021-12-29 COVID-19 Vaccine (3 - [facility] Test 07:17:16 Booster for Moderna of Medic ine series) [code = COVID-19 Vaccine (3 - Booster for Moderna series)] Future Scheduled 2021-12-29 FLU VACCINE > 6 MONTHS [facility] [employer] [facility] 07:17:16 [code = FLU VACCINE > 6 of M edicine MONTHS] Future Scheduled 2021-12-29 ZOSTER VACCINE (1 of 2) [facility] Test 07:17:16 [code = ZOSTER VACCINE of Me dicine (1 of 2)] Future Scheduled 2021-12-29 BMI FOLLOW UP PLAN [employer] Test 07:17:16 [code = BMI FOLLOW UP of Med icine PLAN] Future Scheduled 2021-12-29 TETANUS SHOT (ADULT) [facility] [employer] Test 07:17:16 [code = TETANUS SHOT of Medi cine (ADULT)] Future Scheduled 2021-12-28 WILD 1 [code = NOCPT] Ordered: [facility] [employer] Test 16:04:25 12/28/2021 of Medicine Future Scheduled 2021-12-28 TEMPUS XT TISSUE NGS Ordered: [facility] [employer] Test 15:52:56 [code = 25489311] 12/28/2021 of Medicin e Future Scheduled 2021-08-17 BMI FOLLOW UP PLAN [facility] [employer] [facility] 15:15:29 [code = BMI FOLLOW UP of Med icine PLAN] Future Scheduled 2021-08-17 Screening for malignant [facility] Test 15:13:47 neoplasm of colon of Medicin e (procedure) [code = 480709906] Future Scheduled 2021-08-17 Screening for malignant [facility] [employer] Test 15:13:47 neoplasm of breast of Medici ne (procedure) [code = 828684443] Future Scheduled 2021-08-17 TETANUS SHOT (ADULT) [facility] [employer] [facility] 15:13:47 [code = TETANUS SHOT of Medi cine (ADULT)] Future Scheduled 2021-08-17 Hepatitis C screening [facility] or [facility] Test 15:13:47 (procedure) [code = of Medic ine 400018039] Future Scheduled 2021-08-17 [facility] 15:13:47 virus screening of Medicine (procedure) [code = 393783712] Future Scheduled 2021-08-17 Screening for malignant [facility] Test 15:13:47 neoplasm of cervix of Medici ne (procedure) [code = 179996699] Future Scheduled 2021-08-17 FLU VACCINE > 6 MONTHS [facility] [employer] [facility] 15:13:47 [code = FLU VACCINE > 6 of M edicine MONTHS] Future Scheduled 2021-08-17 ZOSTER VACCINE (1 of 2) [facility] [employer] Test 15:13:47 [code = ZOSTER VACCINE of Me dicine (1 of 2)] Future Scheduled 2021 BMI FOLLOW UP PLAN [employer] [facility] 12:51:47 [code = BMI FOLLOW UP of Med icine PLAN] Future Scheduled 2021 BMI FOLLOW UP PLAN [employer] [facility] 12:51:47 [code = BMI FOLLOW UP of Med icine PLAN] Future Scheduled 2021 Screening for malignant [facility] [employer] Test 12:49:38 neoplasm of colon of Medicin e (procedure) [code = 644567724] Future Scheduled 2021 Screening for malignant [facility] [employer] Test 12:49:38 neoplasm of breast of Medici ne (procedure) [code = 052070480] Future Scheduled 2021 TETANUS SHOT (ADULT) [facility] [employer] Test 12:49:38 [code = TETANUS SHOT of Medi cine (ADULT)] Future Scheduled 2021 Hepatitis C screening [facility] [employer] [facility] 12:49:38 (procedure) [code = of Medic ine 637148211] Future Scheduled 2021 Human immunodeficiency [facility] [employer] [facility] 12:49:38 virus screening of Medicine (procedure) [code = 082245541] Future Scheduled 2021 Screening for malignant [facility] [employer] Test 12:49:38 neoplasm of cervix of Medici ne (procedure) [code = 846349779] Future Scheduled 2021 FLU VACCINE > 6 [...] colon of Medicin e (procedure) [code = 345300536] Future Scheduled 2021 Screening for malignant [facility] [employer] Test 12:49:38 neoplasm of breast of Medici ne (procedure) [code = 655260844] Future Scheduled 2021 TETANUS SHOT (ADULT) [facility] [employer] [facility] 12:49:38 [code = TETANUS SHOT of Medi cine (ADULT)] Future Scheduled 2021 Hepatitis C screening [facility] [employer] [facility] 12:49:38 (procedure) [code = of Medic ine 375279033] Future Scheduled 2021 Human immunodeficiency [facility] [employer] [facility] 12:49:38 virus screening of Medicine (procedure) [code = 155729251] Future Scheduled 2021 Screening for malignant [facility] [employer] Test 12:49:38 neoplasm of cervix of Medici ne (procedure) [code = 204900375] Future Scheduled 2021 FLU VACCINE > 6 MONTHS [facility] [employer] [facility] 12:49:38 [code = FLU VACCINE > 6 of M edicine MONTHS] Future Scheduled 2021 ZOSTER VACCINE (1 of 2) [facility] Test 12:49:38 [code = ZOSTER VACCINE of Me dicine (1 of 2)] Future Scheduled 2021-07-17 Screening for malignant [facility] [employer] Test 10:50:40 neoplasm of colon of Medicin e (procedure) [code = 291848854] Future Scheduled 2021-07-17 Screening for malignant [facility] Test 10:50:40 neoplasm of breast of Medici ne (procedure) [code = 229233807] Future Scheduled 2021-07-17 TETANUS SHOT (ADULT) [facility] [employer] Test 10:50:40 [code = TETANUS SHOT of Medi cine (ADULT)] Future Scheduled 2021-07-17 Hepatitis C screening [facility] College Test 10:50:40 (procedure) [code = of Medic ine 758940107] Future Scheduled 2021-07-17 Human immunodeficiency [facility] [employer] Test 10:50:40 virus screening of Medicine (procedure) [code = 210250861] Future Scheduled 2021-07-17 Screening for malignant [facility] [employer] Test 10:50:40 neoplasm of cervix of Medici ne (procedure) [code = 214646544] Future Scheduled 2021-07-17 FLU VACCINE > 6 MONTHS [facility] [employer] [facility] 10:50:40 [code = FLU VACCINE > 6 of M edicine MONTHS] Future Scheduled 2021-07-17 BMI FOLLOW UP PLAN [employer] [facility] 10:50:40 [code = BMI FOLLOW UP of Med icine PLAN] Future Scheduled PT INSTR GIVEN - Ordered: [facility] Test TOBACCO [code = NOCPT] 10/09/2020 of Me dicine Future Scheduled MAMMOGRAM ANNUAL [code [facility] [employer] Test = MAMMOGRAM ANNUAL] of Medic ine Future Scheduled TETANUS SHOT (ADULT) [facility] [employer] [facility] [code = TETANUS SHOT of Medi cine (ADULT)] Future Scheduled HEPATITIS C SCREENING [facility] [employer] [facility] [code = HEPATITIS C of Medic ine SCREENING] Future Scheduled HIV SCREENING [code = Ba [facility] College Test HIV SCREENING] of Medicine Future Scheduled CERVICAL CANCER [facility] ollege Test SCREENING 3 YEAR FOLLOW of M edicine UP [code = CERVICAL CANCER SCREENING 3 YEAR FOLLOW UP] Future Scheduled FLU VACCINE > 6 MONTHS [facility] [employer] [facility] [code = FLU VACCINE > 6 of M edicine MONTHS] Encounters Start End Encounter Admission Attending Care Care Encounter Source Date/Time Date/Time Type Type Clinicians Facility Department ID 2022-01-26 Outpatient Lopez, [place] [id number] [facility] 15:07:00 [facility] 2022-01-04 Outpatient Lopez, [place] [id number] [facility] 15:09:02 Marco [facility] 2021-12-08 Outpatient Lopez, [place] [id number] 09:05:02 Marco [facility] 2021-12-02 Outpatient Lopez, [place] [id number] 14:36:55 Marco [facility] 2021-12-02 Outpatient Lopez, [facility] 14:07:52 Marco Antonio 66700 [facility] 2021-12-02 Outpatient Lopez, [place] [id number] [facility] [address] 14:03:52 Marco Antonio 24220 [facility] 2021-12-02 Outpatient Lopez, [place] [id number] [address] 13:55:47 Marco Antonio 18285 [facility] 2021-12-02 Outpatient Lopez, [place] [id number] 13:53:17 Marco Antonio 10383 [facility] 2021-12-02 Outpatient Lopez, [place] [id number] 13:11:18 Marco Antonio 16991 [facility] 2021-12-02 Outpatient Lopez, [facility] [id number] 12:40:47 Marco Antonio 55212 [facility] 2021-12-02 Outpatient Lopez, [facility] [id number] 12:36:13 Marco Antonio 38979 [facility] 2021-12-02 Outpatient Lopez, [facility] [id number] 12:10:36 Marco Antonio 34115 [facility] 2021-12-02 Outpatient Lopez, [facility] [id number] 11:38:47 Marco Antonio 13251 [facility] 2021-12-02 [facility] 2021-08-16 Inpatient MATTAR, [facility] Surgery [id number] [facility] 06:30:09 SAMER 2022-04-07 2022-04-07 Outpatient EL [facility] [id number] [facility] 00:00:00 00:00:00 2022-03-08 2022-03-08 Outpatient EL [facility] [id number] [facility] 00:00:00 00:00:00 2022-02-26 2022-02-26 Outpatient EL ALVES, [facility] [id number] [facility] 12:02:22 23:59:00 [facility] 2022-02-26 2022-02-26 Outpatient EL [facility] [id number] [facility] 08:03:32 08:03:32 2022-02-26 2022-02-26 Outpatient EL ALVES, [facility] [id number] [facility] 00:00:00 00:00:00 [facility] 2022-02-26 2022-02-26 [facility] [id number] [facility] 2022-02-17 2022-02-17 Outpatient EL [facility] [id number] [facility] 07:49:49 07:49:49 2022-02-16 2022-02-16 Outpatient ANGEL GUZMÁN [facility] [id number] SLE 00:00:00 23:59:00 SKYLAR 2022-02-16 2022-02-16 Outpatient ANGEL GUZMÁN [facility] [id number] [facility] 00:00:00 00:00:00 [facility] 2021-12-28 2021-12-28 [facility] [id number] [facility] 14:16:03 15:50:38 Visit [facility] Enma [id number] Co llege 0.2.7.2.686 of [id number] Medi sang 504 e 2021-12-09 2021-12-09 ambulatory [facility] [id number] [facility] 2021-11-12 2021-11-12 Outpatient SAMUEL HOOKS MED [id number] SAMUEL 11:20:00 23:59:00 DAPHNEY 2021-11-05 2021-11-05 Outpatient BRODY TAMEZ [facility] [id number] [facility] 13:26:47 13:40:13 ALYSSA roman of Medicin e 2021-09-23 2021-09-23 Outpatient [facility] [id number] [place] [address] 00:00:00 00:00:00 MAVIS [address] 2021-09-23 2021-09-23 Outpatient [facility] [id number] [address] [place] [address] 00:00:00 00:00:00 MAVIS [address] 2021-09-14 2021-09-14 ambulatory [facility] [id number] [facility] 2021-09-09 2021-09-09 ambulatory [facility] [id number] [facility] 2021-09-02 2021-09-02 Outpatient [facility] [id number] [facility] 2021-09-01 2021-09-01 [facility] [id number] 2021-08-28 2021[facility]08-28 [facility] [id number] [facility] 2021-08-20 2021-08-20 Outpatient [facility] [id number] [facility] 2021-08-17 2021-08-17 Office ABBY, [facility] [id number] [place] [address] 14:47:06 15:14:31 Visit SAMER AMBULATOR [id number] College Y 0.2.7.2.686 of [id number] [facility] sang 805 e 2021-08-10 2021-08-10 Outpatient [facility] [id number] [facility] 2021-08-10 2021-08-10 Outpatient [facility] [id number] [facility] 2021-08-03 2021-08-03 Outpatient [facility] SLE [id number] SLE 00:00:00 00:00:00 2021-07-31 2021-07-31 Outpatient [facility] [id number] [facility] 2021 2021 Outpatient [facility] [id number] [facility] 00:00:00 23:59:00 Colleg e of Medicin e 2021 2021 Office BRODY Tamez [id number] [facility] 12:34:26 13:04:26 Visit Samer Gamil AMBULATOR [id number] College Y 0.2.7.2.686 of [id number] [facility] 805 e 2021 2021 Outpatient [facility] [id number] [facility] 00:00:00 00:00:00 2021 2021 Outpatient EL [facility] [id number] [facility] 00:00:00 00:00:00 2021 2021 Outpatient EL [facility] [id number] SLE 00:00:00 00:00:00 2021-07-17 2021-07-17 Office Kiley, CARL [id number] [facility] 11:00:00 12:00:00 Visit Jolene AMBULATOR 350.1.13.21 College Y [id number] of [id number] [facility] 810 e 2021-05-01 2021-05-01 Outpatient [facility] [id number] [facility] 2021-04-13 2021-04-13 [facility] [id number] [facility] 2021-03-27 2021-03-27 Out[facility] [id number] [facility] 2021-03-04 2021-03-04 Outpatient BRODY CAO Ghulam [id number] [facility] 09:27:48 09:43:02 JOLENE [employer] 2021-02-16 2021-02-16 Outpatient BRODY CAO [id number] [facility] 09:30:25 09:54:09 [employer]OLENE [employer] 2021-02-04 2021-02-04 Outpatient BRODY CAO [id number] [facility] 14:40:19 14:57:28 [employer]OLENE [employer] 2021-01-27 2021-01-27 Outpatient [facility] [id number] [facility] 2021-01-27 2021-01-27 [facility] [id number] [facility] 2021-01-24 2021-01-24 [facility] [id number] [facility] 2021-01-09 2021-01-09 [facility] [id number] [facility] 2021-01-07 2021-01-07 Outpatient BRODY CAO [facility] [id number] [facility] 09:28:50 09:55:15 [employer]OLENE [employer] 2020-12-10 2020-12-10 Outpatient BRODY CAO [facility] [id number] [facility] 14:28:59 14:55:01 JOLENE [employer] 2020-11-13 2020-11-13 [facility] [id number] [facility] 2020-10-22 2020-10-22 [facility] [id number] [facility] 2020-10-22 2020-10-22 [facility] [id number] [facility] 2020-10-13 2020-10-13 [facility] [id number] [facility] 2020-10-13 2020-10-13 [facility] [id number] [facility] 2020-10-09 2020-10-09 Office BRODY Tamez [id number] [facility] 08:04:19 09:04:19 Visit Samer Gamil AMBULATOR 350.1.13.21 College Y 0.2.7.2.686 of [id number] [facility] 800 e 2020-10-09 2020-10-09 Office BRODY Tamez [id number] 08:04:19 09:04:19 Visit Alyssa Melvin AMBULATOR 350.1.13.21 Y [id number] 2020-10-08 2020-10-08 Outpatient [facility] [id number] [facility] 2020-08-12 2020-08-12 Outpatient [facility] [id number] [facility] 2020-08-08 2020-08-08 Outpatient [facility] [id number] [facility]00 [facility] Clinics 2020-07-15 2020-07-15 [facility] [id number] [facility] 08:30:00 08:30:00 [facility] 2020-07-10 2020-07-10 [facility] [id number] [facility] 08:52:00 08:52:00 [facility] 2020-06-24 2020-06-24 [facility] [id number] 15:30:00 15:30:00 [facility] ent Clinics Results Test Test Test Results Result Source Description Time Comments Comments TISSUE EXAM 2021-08- Surgical Pathology Report 04 Case: [id number] 17:14:04 Authorizing Provider: Alyssa Tamez MD Collected: 08/04/2021 08:32 AM Ordering Location: [facility] Received: 08/04/2021 10:02 AM SERVICES Pathologist: Lana Hui MD Specimen: Stomach, PARTIAL GASTRECTOMY STOMACH, PARTIAL GASTRECTOMY: - A PORTION OF GASTRIC BODY WITH NO SPECIFIC PATHOLOGIC CHANGES Signing Pathologist Direct Phone Line: [phone] signed by Lana Hui MD on 08/10/2021 [...] rugal folds. No discrete lesions are identified. [employer] sections are submitted in A1-A2.SARINA Ochoa, ([facility]) POCT-GLUCOSE METER 2021-08-05 08:05:23 Test Item Value Reference Range Interpretation Comme nts POC-GLUCOSE METER (BEAKER) 106 mg/dL 70-110 : TESTED AT [address] (test code = 1538) [facility], [address]: Threader Operator/Techni bryan ID = [id number] for SHANA, LATCATARINAI A POCT-GLUCOSE [id number] 21:44:33 Test Item Value Reference Range Interpretation Comments POC-GLUCOSE METER 113 mg/dL 70-110 H : TESTED A [facility] [facility] (test code = [facility], 153) [address]: Threader Operator/Techni bryan ID = [id number] for DA MARTELL LÓPEZA POCT-GLUCOSE [id number] 16:59:35 Test Item Value Reference Range Interpretation Comments POC-GLUCOSE METER 151 mg/dL 70-110 H : [facility] ([facility]ER[facility] (test code = [facility], 1538) [address]: Threader Operator/Techni bryan ID = [id number] for An toine, Peggy POCT-GLUCOSE [id number] 13:26:55 Test Item Value Reference Range Interpretation Comments POC-GLUCOSE METER 169 mg/dL 70-110 H : [facility] (test code = [facility], 153) [address]: Threader Operator/Techni bryan ID = [id number] for An toine, Peggy POCT-GLUCOSE [id number] 12:17:26 Test Item Value Reference Range Interpretation Comments POC-GLUCOSE METER 161 mg/dL 70-110 H : TESTED A T [facility] 67[address] (BEAKER) (test code = [place], 1538) [address]: Threader Operator/Techni bryan ID = [id number] for SUNG MARIE URINALYSIS W/ REFLEX URINE [id number] 08:05:03 Test Item Value Reference Range Interpretation [...] = 1521) SOURCE(BEAKER) (test code = 2795) Threader Operator ID - [auto]Threader Operator ID - techSARS-COV2/RT-PCR ([facility]) 2021 23:45:05 Test Item Value Reference Range Interpretation Comments SARS-COV2/RT-PCR (test code = Negative Negative 0299111) Negative result for this test determines that [...] the Parks SARS-CoV-2 assay.Fact Sheet for Healthcare Providers:https://www.molecular.parks/kaylee/RT SARS-CoV-2 HCP Fact Sheet 51- 916159.pdfFact Sheet for Healthcare Patients:https://www.molecular.parks/kaylee/RT SARS-CoV-2 Patient Fact Sheet EN 51-691431K4.yekTWTGNIWIXD9436-30-79 12:32:40 Test Item Value Reference Range Interpretation Comments CREATININE (OSIEL) 0.61 mg/dL 0.57-1.25 (test code = 358) EGFR (BEAKER) (test 104 mL/min/1.73 ESTIM ATED GFR IS code = 1092) sq m NOT ACCURATE CREATININE CLEARANCE IN PREDICTING GLOMERULAR FILTRATION RATE . ESTIMATED GFR I S NOT APPLICABLE FOR DIALYSIS PATIEN TS. Threader Operator ID - PIAYA [id number] 12:32:40 Test Item Value Reference Range Interpretation Comments GLUCOSE RANDOM (BEAKER) (test code 147 mg/dL 70-105 H = 652) Threader Operator ID - TYLOR [id number] 12:32:39 Test Item Value Reference Range Interpretation Comments BLOOD UREA NITROGEN (BEAKER) (test 11 mg/dL 7-21 code = 354) Threader Operator ID - TYLOR [id number] 12:32:39 Test Item Value Reference Range Interpretation Comments SODIUM (BEAKER) (test code = 381) 142 meq/L 136-145 POTASSIUM (BEAKER) (test code = 4.0 meq/L 3.5-5.1 379) CHLORIDE (BEAKER) (test code = 382) 106 meq/L 98-107 CO2 (BEAKER) (test code = 355) 27 meq/L 22-29 Threader Operator ID - TYLOR [id number] 12:13:22 Test Item Value Reference Range Interpretation Comments HEMOGLOBIN (BEAKER) (test code = 11.8 GM/DL 11.2-15.7 410) Threader Operator ID - [id number]-COV2/RT-PCR ([facility])2020-05-12 19:10:00 Test Item Value Reference Range Interpretation Comments SARS-COV2/RT-PCR (test code = Positive Not Detected, Negative A A [id number]) SARS-COV-[address] [facility] (test code = 3153589) Results are for the detection of SARS-CoV-2 [...] 564(g) of the Act.Fact Sheet for Healthcare Providers:https://www.[employer]sites/default/files/product/d ocuments/Uwds_Dccvq_MM_Wfbaoyysy_Mcjz_BWPN-GiG-8.pdfFact Sheet for Healthcare Patients:https://www.[employer]sites/default/files/product/documents/Fact_Sheet_Patients_Lyra_SARS-CoV -2.pdfPerforming Laboratory:[facility] [place] [address]
[2022-03-03] MEDS ORDERED: POTASSIUM 25 MEQ EFFERV TAB ONE ×3 (18:27→21:34)
[2022-03-03] MEDS ORDERED: KCL 20 MEQ/100 mL IVPB 0 ML IV ONE (18:27)
[2022-03-03] MEDS ORDERED: NA CHLORIDE 0.9% 250 ML ONE (18:28)
[2022-03-03 19:09] LABS: Absolute Lymphocytes (CBC) 1.6 K/uL (0.7-4.9); Hematocrit 31.7 % (36.0-45.0); Lymphocytes % 6.2 % (15.3-44.8); MPV 7.3 fL (7.6-11.3); RBC Red Blood Cell Count 3.43 M/uL (3.86-4.86)
[2022-03-03 19:27] LABS: BUN Blood Urea Nitrogen 14 mg/dL (7-18); Bicarbonate 34 mmol/L (21-32); Glomerular Filtration Rate > 90 mL/min (=/>90); Glucose Level 90 mg/dL (74-106); Sodium Level 141 mmol/L (136-145)
[2022-03-03 19:30] LABS: Potassium 2.2 mmol/L (3.5-5.1)
[2022-03-03 19:48] LABS: Platelet Estimate ADEQ; Toxic Granulation 2+
[2022-03-03 19:49] LABS: Blood Morphology Comment NOT SEEN (NOT SEEN)
[2022-03-03 20:01] LABS: Bilirubin Direct 0.3 mg/dL (0-0.2); Bilirubin Total 1.2 mg/dL (0.2-1.0); Magnesium 1.7 mg/dL (1.8-2.4); Phosphorus 3.6 mg/dL (2.5-4.9); Protein, Total 6.1 g/dL (6.4-8.2); Troponin High Sensitivity 6.4 pg/mL (<58.9)
--- NOTE | 2022-03-03 20:12 | RAD REPORT ---
EXAM DESCRIPTION: RAD - Chest Single View - 03/03/2022 8:01 pm CLINICAL HISTORY: COUGH COMPARISON: Chest Single View dated 01/24/2022; Chest Single View dated 11/02/2021; Chest Single View dated 09/24/2021; Chest Single View dated 09/21/2021 FINDINGS: Lines: Left IJ approach Port-A-Cath. Lungs: No evidence of edema or pneumonia. Pleural: No significant pleural effusions or pneumothorax. Cardiac: The heart size is within normal limits. Bones: No acute fractures. Other: IMPRESSION: No acute cardiopulmonary disease.
--- NOTE | 2022-03-03 20:16 | ER ---
Nurse's Notes [facility] Name: Ailin Dickson Age: 51 yrs Sex: Female : 1970 Arrival Date: 03/03/2022 Time: 15:41 Bed 6 Private MD: Diagnosis: Hypokalemia;Hypomagnesemia;Weakness;Elevated white blood cell count;Anemia, unspecified Presentation: 03/03 16:02 Chief complaint: Patient states: Bllod drawn today showed K 2.4, sent in by oncologist. ll1 Coronavirus screen: Vaccine status: Patient reports receiving the 2nd dose of the covid vaccine. Client denies travel out of the [place] in the last 14 days. At this time, the client does not indicate any symptoms associated with coronavirus-19. Ebola Screen: Patient denies travel to an Ebola-affected area in the 21 days before illness onset. Initial Sepsis Screen: Does the patient meet any 2 criteria? No. Patient's initial sepsis screen is negative. Does the patient have a suspected source of infection? No. Patient's initial sepsis screen is negative. Risk Assessment: Do you want to hurt yourself or someone else? Patient reports no desire to harm self or others. Onset of symptoms was March 01, 2022. 16:02 Method Of Arrival: Ambulatory ll1 16:02 Acuity: MADDI 3 ll1 Triage Assessment: 16:04 General: Appears uncomfortable, Behavior is cooperative, appropriate for age. Pain: ll1 Complains of pain in abdomen Quality of pain is described as aching. GI: Reports lower abdominal pain, upper abdominal pain, diarrhea, nausea. Historical: - Allergies: 16:03 No Known Allergies; ll1 - PMHx: 16:03 blood clots IJ, vena cava; diabetes mellitus; Stage 4, adenocarcinoma of colon; ll1 - PSHx: 16:03 Appendectomy; section; Cholecystectomy; gastric sleeve; ll1 - Immunization history:: Client reports receiving the 2nd dose of the Covid vaccine. - Social history:: Smoking status: Reported history of juuling and/or vaping. Screenin:05 Abuse screen: Denies threats or abuse. Nutritional screening: No deficits noted. vg1 Tuberculosis screening: No symptoms or risk factors identified. Fall Risk No fall in past 12 months (0 pts). No secondary diagnosis (0 pts). IV access (20 points). Ambulatory Aid- Crutches/Cane/Walker (15 pts). Gait- Weak (10 pts.). Mental Status- Oriented to own ability (0 pts). Total Martinez Fall Scale indicates High Risk Score (45 or more points). Fall prevention measures have been instituted. Side Rails Up X 2 Placed Close to Nursing Station As available patient and family educated on Fall Prevention Program and Strategies. Assessment: 17:05 General: Appears uncomfortable, Behavior is calm, cooperative. Pain: Complains of pain vg1 in generalize body Pain currently is 3 out of 10 on a pain scale. Neuro: Level of Consciousness is awake, alert, obeys commands, Oriented to person, place, time, situation. Cardiovascular: Patient's skin is warm and dry. Respiratory: Airway is patent Respiratory effort is even, unlabored. GI: No signs and/or symptoms were reported involving the gastrointestinal system. : No signs and/or symptoms were reported regarding the genitourinary system. EENT: No signs and/or symptoms were reported regarding the EENT system. Derm: Skin is intact, Skin is pink, warm \\T\\ dry. Musculoskeletal: Circulation, motion, and sensation intact. 21:00 Reassessment: Eric GRANT stated patient can go upstairs with pending lab order. al4 21:52 Reassessment: JUANITA Tatum - gave permission for patient to take Imodium from home. al4 21:52 Reassessment: drug guide does not say that magnesium and potassium can run at the same al4 time, so the magnesium is being held at this time. 21:53 General: Appears in no apparent distress. comfortable, Behavior is calm, cooperative. al4 Neuro: Level of Consciousness is awake, alert, obeys commands, Oriented to person, place, time, situation. Cardiovascular: Patient's skin is warm and dry. Respiratory: Airway is patent Respiratory effort is even, unlabored. GI: Reports diarrhea. Musculoskeletal: Circulation, motion, and sensation intact. 23:40 Reassessment: JUANITA Tatum - aware of pausing the NS with KCL to give the NS bolus and the al4 magnesium. After the NS bolus and magnesium infusion is complete, the NS with KCL will be restarted. 23:40 Reassessment: Patient appears in no apparent distress at this time. Patient denies pain al4 at this time. 03/04 00:49 Reassessment: Patient appears in no apparent distress at this time. Patient and/or al4 family updated on plan of care and expected duration. Pain level reassessed. 00:55 Reassessment: NS with KCL 20 meq at 125 ml/hr restarted. al4 02:10 Reassessment: Patient appears in no apparent distress at this time. patient ambulating al4 to restroom.. Vital Signs: 03/03 16:02 BP 108 / 75; Pulse 71; Resp 16; Temp 97.9; Pulse Ox 98% ; Weight 73.94 kg; Height 5 ft. ll1 6 in. (167.64 cm); Pain 5/10; 21:00 BP 91 / 81; Pulse 74; Resp 19; Pulse Ox 95% ; al4 22:30 BP 86 / 59; Pulse 84; Resp 12; Pulse Ox 96% ; Pain 0/10; al4 23:30 BP 95 / 65; Pulse 73; Resp 15; Pulse Ox 97% ; Pain 0/10; al4 03/04 00:30 BP 103 / 67; Pulse 67; Resp 14; Pulse Ox 96% ; Pain 0/10; al4 02:25 BP 120 / 68; Pulse 67; Resp 16 S; Pulse Ox 98% on R/A; al4 03/03 16:02 Body Mass Index 26.31 (73.94 kg, 167.64 cm) 1 ED Course: 03/03 15:41 Patient arrived in ED. ds1 15:52 Eddi Isaac MD is Attending Physician. kdr 16:03 Triage completed. ll1 16:04 Arm band placed on. ll1 17:04 Cici Sorenson, MIREILLE is Primary Nurse. vg1 17:05 Patient has correct armband on for positive identification. Bed in low position. Call vg1 light in reach. Side rails up X2. 18:46 COVID-19 SARS RT PCR (Document "Date of Onset" if Symptomatic) Sent. vg1 18:54 Initial lab(s) drawn, by me, sent to lab. Accessed Port-a-Cath. using accessed w/ # 20 vg1 Miller needle, ,sterile technique, per hospital protocol. Clean \\T\\ dry. Dressing intact. Good blood return. Flushes easily. 19:17 Attending Physician role handed off by Eddi Isaac MD [facility] 19:17 Jean-Paul Reyes MD is Attending Physician. [facility] 20:03 XRAY Chest (1 view) In Process Unspecified. EDMS 20:14 Prince Low MD is Hospitalizing Provider. [facility] 03/04 00:25 No provider procedures requiring assistance completed. Patient admitted, IV remains in al4 place. Administered Medications: 03/03 18:54 Drug: Potassium Effervescent Tablet 50 mEq Route: PO; vg1 18:54 Drug: Potassium Chloride 20 mEq Route: IV; Rate: calculated rate; Site: Port-a-cath; vg1 21:52 Drug: NS 0.9% with KCl 20 mEq/L 1000 ml Route: IV; Rate: 125 ml/hr; Site: Port-a-cath; al4 21:52 Drug: Potassium Chloride 20 mEq Route: IV; Rate: per protocol; Site: Port-a-cath; al4 23:38 Follow up: Response: No adverse reaction; IV Status: Completed infusion al4 22:15 Not Given (Patient Refused): Potassium Effervescent Tablet 50 mEq PO once; dissolve in al4 4 ounces of water or juice 22:31 Drug: Pepcid (famotidine) 20 mg Route: IVP; Site: Port-a-cath; al4 23:00 Follow up: Response: No adverse reaction al4 23:46 Drug: Magnesium Sulfate 1 grams Route: IVPB; Infused Over: 1 hrs; Site: Port-a-cath; al4 03/04 00:55 Follow up: Response: No adverse reaction; IV Status: Completed infusion mi4 03/03 23:46 Drug: NS 0.9% 1000 ml Route: IV; Rate: 1 bolus; Site: Port-a-cath; al4 03/04 00:55 Follow up: Response: No adverse reaction; IV Status: Completed infusion; IV Intake: al4 1000ml Intake: 00:55 IV: 1000ml; Total: 1000ml. al4 Outcome: 03/03 20:16 Decision to Hospitalize by Provider. [facility] 03/04 00:25 Admitted to Med/surg room 203, Report called to MIREILLE Salvador al4 Condition: stable Discharge instructions given to patient, Instructed on the need for admit, Demonstrated understanding of instructions. 02:26 Patient left the ED. al4 Signatures: Dispatcher Medst EDJean-Paul Wilkinson MD MD cha Rittger, Kevin, MD MD kdr Sanford, Demi ds1 Cici Sorenson RN RN vg1 Janiya Hein RN RN ll1 Subhash Khan al4 Corrections: (The following items were deleted from the chart) 03/03 18:57 17:05 Fall Risk No fall in past 12 months (0 pts). No secondary diagnosis (0 pts). IV vg1 access (20 points). Ambulatory Aid- Crutches/Cane/Walker (15 pts). Gait- Weak (10 pts.). Mental Status- Oriented to own ability (0 pts). Total Martinez Fall Scale indicates High Risk Score (45 or more points). Fall prevention measures have been instituted. Side Rails Up X 2 Placed Close to Nursing Station vg1 03/04 00:56 00:55 Reassessment: NS with KCL restarted al4 al4 : 02:10 Reassessment: Patient appears in no apparent distress at this time. al4 al4 : 02:00 BP 83 / 57; Pulse 67bpm; Resp 16bpm; Spontaneous; Pulse Ox 97% RA; al4 al4
--- NOTE | 2022-03-03 20:16 | EDPHYS ---
Physician Documentation [facility] Name: Ailin Dickson Age: 51 yrs Sex: Female : 1970 Arrival Date: 03/03/2022 Time: 15:41 Bed 6 Private MD: Jean-Paul Bacon HPI: 03/03 19:12 This 51 yrs old Female presents to ER via Ambulatory with complaints of Abnormal Lab kdr Results. 19:12 Patient was sent by her oncologist after she had 2 successive blood draws indicating a kdr potassium less than 2.5. Patient is generally feeling poorly but otherwise is not in any acute distress. She has had 2 rounds of chemo. The initial round was tolerated fairly well but the second round few days ago has left her feeling very shaky and weak.. Onset: The symptoms/episode began/occurred gradually, 3 day(s) ago. Severity of symptoms: At their worst the symptoms were mild moderate. The patient has not experienced similar symptoms in the past. The patient has been recently seen by a physician:. Historical: - Allergies: 16:03 No Known Allergies; ll1 - PMHx: 16:03 blood clots IJ, vena cava; diabetes mellitus; Stage 4, adenocarcinoma of colon; ll1 - PSHx: 16:03 Appendectomy; section; Cholecystectomy; gastric sleeve; ll1 - Immunization history:: Client reports receiving the 2nd dose of the Covid vaccine. - Social history:: Smoking status: Reported history of juuling and/or vaping. ROS: 19:12 Constitutional: Negative for fever, chills, and weight loss, Eyes: Negative for injury, kdr pain, redness, and discharge, Neck: Negative for injury, pain, and swelling, Cardiovascular: Negative for chest pain, palpitations, and edema, Respiratory: Negative for shortness of breath, cough, wheezing, and pleuritic chest pain, Abdomen/GI: Negative for abdominal pain, nausea, vomiting, diarrhea, and constipation, Back: Negative for injury and pain, MS/Extremity: Negative for injury and deformity, Skin: Negative for injury, rash, and discoloration, Psych: Negative for depression, anxiety, suicide ideation, homicidal ideation, and hallucinations, Allergy/Immunology: Negative for hives, rash, and allergies, Endocrine: Negative for neck swelling, polydipsia, polyuria, polyphagia, and marked weight changes, Hematologic/Lymphatic: Negative for swollen nodes, abnormal bleeding, and unusual bruising. 19:12 Neuro: Positive for weakness, Negative for altered mental status, dizziness. Exam: 17:48 ECG was reviewed by the Attending Physician. [facility] Vital Signs: 16:02 BP 108 / 75; Pulse 71; Resp 16; Temp 97.9; Pulse Ox 98% ; Weight 73.94 kg; Height 5 ft. ll1 6 in. (167.64 cm); Pain 5/10; 21:00 BP 91 / 81; Pulse 74; Resp 19; Pulse Ox 95% ; al4 22:30 BP 86 / 59; Pulse 84; Resp 12; Pulse Ox 96% ; Pain 0/10; al4 23:30 BP 95 / 65; Pulse 73; Resp 15; Pulse Ox 97% ; Pain 0/10; al4 03/04 00:30 BP 103 / 67; Pulse 67; Resp 14; Pulse Ox 96% ; Pain 0/10; al4 02:25 BP 120 / 68; Pulse 67; Resp 16 S; Pulse Ox 98% on R/A; al4 03/03 16:02 Body Mass Index 26.31 (73.94 kg, 167.64 cm) ll1 MDM: 03/03 19:17 [facility] 20[facility]17 Data reviewed: vital signs, nurses notes, lab test result(s), EKG. Data interpreted: [facility] nutrition associate: rate is 71 beats/min, rhythm is regular, Pulse oximetry: on room air is 98 %. Test interpretation: by ED physician or midlevel provider: ECG. Counseling: I had a detailed discussion with the patient and/or guardian regarding: the historical points, exam findings, and any diagnostic results supporting the discharge/admit diagnosis, lab results, the need for further work-up and treatment in the hospital. 03/03 17:11 Order name: CBC with Diff; Complete Time: 19:56 kdr 03/03 17:11 Order name: Chem 7; Complete Time: 19:56 kdr 03/03 18:30 Order name: COVID-19 SARS RT PCR (Document "Date of Onset" if Symptomatic); Complete vg1 Time: 19:56 03/03 19:18 Order name: LFT's; Complete Time: 20:47 vijay 03/03 19:18 Order name: Magnesium; Complete Time: 20:47 vijay 03/03 19:18 Order name: NT PRO-BNP; Complete Time: 20:47 [facility] 03/03 19:18 Order name: PT-INR [facility] 03/03 19:18 Order name: Troponin HS; Complete Time: 20:47 [facility] 03/03 19:18 Order name: XRAY Chest (1 view); Complete Time: 20:47 [facility] 03/03 19:18 Order name: Phosphorus; Complete Time: 20:47 [facility] 03/03 19:49 Order name: Manual Differential; Complete Time: 19:56 EDMS 03/03 19:18 Order name: EKG; Complete Time: 19:19 [facility] 03/03 19:18 Order name: Cardiac monitoring; Complete Time: 00:02 [facility] 03/03 19:18 Order name: EKG - Nurse/Tech; Complete Time: 19:28 [facility] 03/03 19:18 Order name: IV Saline Lock; Complete Time: 20:12 [facility] 03/03 19:18 Order name: Labs collected and sent [facility] 03/03 19:18 Order name: O2 Per Protocol; Complete Time: 19:19 [facility] 03/03 19:18 Order name: O2 Sat Monitoring; Complete Time: 19:19 [facility] EC:48 Rate is 57 beats/min. Rhythm is regular, Sinus bradycardia with No ectopy. QRS [place] is kdr Normal. MS interval is normal. QRS interval is normal. QT interval is normal. Clinical impression: NSR w/ Non-specific ST/T Changes and Sinus bradycardia. Administered Medications: 18:54 Drug: Potassium Effervescent Tablet 50 mEq Route: PO; vg1 18:54 Drug: Potassium Chloride 20 mEq Route: IV; Rate: calculated rate; Site: [facility]; vg1 21:52 Drug: NS 0.9% with KCl 20 mEq/L 1000 ml Route: IV; Rate: 125 ml/hr; Site: Port-a-c[facility]; al4 21:52 Drug: Potassium Chloride 20 mEq Route: IV; Rate: per protocol; Site: Port-a-c[facility]; al4 23:38 Follow up: Response: No adverse reaction; IV Status: Completed infusion al4 22:15 Not Given (Patient Refused): Potassium Effervescent Tablet 50 mEq PO once; dissolve in al4 4 ounces of water or juice 22:31 Drug: Pepcid (famotidine) 20 mg Route: IVP; Site: Port-a-cath; al4 23:00 Follow up: Response: No adverse reaction al4 23:46 Drug: Magnesium Sulfate 1 grams Route: IVPB; Infused Over: 1 hrs; Site: Port-a-cath; al4 03/04 00:55 Follow up: Response: No adverse reaction; IV Status: Completed infusion al4 03/03 23:46 Drug: NS 0.9% 1000 ml Route: IV; Rate: 1 bolus; Site: Port-a-cath; al4 03/04 00:55 Follow up: Response: No adverse reaction; IV Status: Completed infusion; IV Intake: al4 1000ml Disposition Summary: 03/03/22 20:16 Hospitalization Ordered Hospitalization Status: Observation vijay Provider: Prince Low cha Location: Telemetry/MedSurg (observation) vijay Condition: Fair vijay Problem: new vijay Symptoms: have improved vijay Bed/Room Type: Standard vijay Room Assignment: 203(03/03/22 21:19) eb1 Diagnosis - Hypokalemia vijay - Hypomagnesemia vijay - Weakness vijay - Elevated white blood cell count vijay - Anemia, unspecified vijay Forms: - Medication Reconciliation Form vijay - SBAR form vijay Signatures: Dispatcher [employer] EDMS Jean-Paul Reyes MD MD cha Rittger, Kevin, MD MD kdr Attema, Lee, ACOUSTICAL LOGGING ENGINEER-C ACOUSTICAL LOGGING ENGINEER-Cla1 Juanis Vasquez RN RN eb1 Cici Sorenson RN RN vg1 Janiya Hein, RN RN ll1 Subhash Khan4 Corrections: (The following items were deleted from the chart) 03/03 19:28 17:22 BASIC METABOLIC PANEL+C.LAB.BRZ ordered. EDMS EDMS 21:19 20:16 vijay eb1
[2022-03-03] MEDS ORDERED: KCL 20 MEQ/100 mL IVPB 100 ML IV ONE ×2 (20:19→21:35)
[2022-03-03] MEDS ORDERED: NS KCL 20MEQ 0 ML IV ONE (20:19)
[2022-03-03] MEDS ORDERED: FAMOTIDINE 20 MG/2 ML VIAL IV ONE ×2 (20:20→21:35)
[2022-03-03] MEDS ORDERED: MAGNESIUM SULFATE 1 gm IVPB 0 GM/0 ML BAG IV ONE (20:20)
[2022-03-03] MEDS ORDERED: MAGNESIUM SULFATE 1 gm IVPB 1 GM/100 ML BAG IV ONE (21:35)
[2022-03-03] MEDS ORDERED: NS KCL 20MEQ 1,000 ML IV ONE (21:35)
--- NOTE | 2022-03-03 22:23 | P.HP ---
Certification for Inpatient Patient admitted to: Observation With expected LOS: <2 Midnights Patient will require the following post-hospital care: None Practitioner: I am a practitioner with admitting privileges, knowledge of patient current condition, hospital course, and medical plan of care. Services: Services provided to patient in accordance with Admission requirements found in Title 42 Section 412.3 of the Code of Federal Regulations Patient History Date of Service: 03/03/22 Reason for admission: Hypokalemia History of Present Illness: 51-year-old female with history of stage IV colon cancer with mets to the liver and brain on chemotherapy, diabetes mellitus type 2diet controlled, hyperlipidemia presents the emergency department for abnormal labs, diarrhea. Patient is on chemotherapy she reports that she has chronic due to diarrhea related to this her labs were significant for marked hypokalemia with a potassium of 2.2, hypomagnesemia leukocytosis, bandemia which is likely related to her Neupogen from oncology. Given marked hypokalemia ED provider wishes to admit for further evaluation and management. Allergies No Known Allergies Allergy (Verified 09/21/21 10:32) Home Medications: Apixaban [Eliquis] 1 tab PO BID 01/24/22 Gabapentin 1 tab PO TID 01/24/22 Hydrocodone 5/APAP 325 [[place] 5/325*] 1 tab PO Q4H 01/24/22 Potassium Chloride [Klor-Con M15] 15 meq PO DAILY 14 Days #14 tab.er.prt 01/25/22 - Past Medical/Surgical History Diabetic: Yes -: stage 4 adenocarcinoma mets to colon and to liver/brain -: Hyperlipidemia -: Diabetes mellitus type 2diet controlled -: IJ blood clot on anticoagulation -: gastric sleeve 07/2021 -: good -: appy -: C section -: portacath placement Psychosocial/ Personal History: Lives at home with family - Social History Smoking Status: Never smoker Alcohol use: No CD- Drugs: No Caffeine use: Yes Place of Residence: Home Review of Systems 10-point ROS is otherwise unremarkable Gastrointestinal: Nausea, Diarrhea Physical Examination - Physical Exam General: Alert, In no apparent distress, Oriented x3 HEENT: Atraumatic, PERRLA, Mucous membr. moist/pink, EOMI, Sclerae nonicteric Neck: Supple, 2+ carotid pulse no bruit, No LAD, Without JVD or thyroid abnormality Respiratory: Clear to auscultation bilaterally, Normal air movement Cardiovascular: Regular rate/rhythm, Normal S1 S2 Gastrointestinal: Normal bowel sounds, No tenderness Musculoskeletal: No tenderness Integumentary: No rashes Neurological: Normal gait, Normal speech, Normal strength at 5/5 x4 extr, Normal tone, Normal affect Lymphatics: No axilla or inguinal lymphadenopathy - Studies Laboratory Data (last 24 hrs) 03/03/22 18:45: Phosphorus 3.6, Magnesium 1.7 L, Total Bilirubin 1.2 H, AST 54 H, ALT 63, Alkaline Phosphatase 135 H 03/03/22 18:45: Sodium 141, Potassium 2.2 L*, BUN 14, Creatinine 0.32 L, Glucose 90 03/03/22 18:45: WBC 26.3 H*, Hgb 10.8 L, Hct 31.7 L, Plt Count 168 03/03/22 17:21: Sodium Cancelled, Potassium Cancelled, BUN Cancelled, Creatinine Cancelled, Glucose Cancelled Assessment and Plan - Plan Assessment: Severe hypokalemia Hypomagnesemia Diarrhea likely related to chemotherapy Leukocytosis/bandemia Stage IV colon cancer with metastasis to liver, brain on chemo History of IJ blood clot on chronic anticoagulation Diabetes mellitus type 2diet controlled Hyperlipidemia Plan: Severe hypokalemia: Started on potassium containing IV fluids, protocol in place we will recheck potassium this evening and follow protocol. Likely related to GI loss, diarrhea from chemotherapy. Hypomagnesemia: Continue as above, protocol in place received treatment in the ER. Diarrhea likely related to chemotherapy: Continue home dose of Imodium Leukocytosis/bandemia: Likely related to Neupogen, no fever chills or other signs of infection patient with similar episodes with high white blood cell count/bandemia without infection present related to Neupogen. Stage IV colon cancer with metastasis to liver, brain on chemo: Continue outpatient therapy History of IJ blood clot on chronic anticoagulation: Continue Eliquis Diabetes mellitus type 2diet controlled: ADA diet Hyperlipidemia: Continue home meds DVT PPX: Continue Eliquis Code status:full code Discharge Plan: Home Plan to discharge in: 24 Hours - Advance Directives Does patient have a Living Will: No Does patient have a Durable POA for Healthcare: No - Code Status/Comfort Care Code Status Assessed: Yes (Full code) Critical Care: No Time Spent Managing Pts Care (In Minutes): 55
[2022-03-03] MEDS ORDERED: NA CHLORIDE 0.9% 1,000 ML ONE (23:44)
[2022-03-04 02:35] VITALS: BMI 26.3
[2022-03-04] MEDS ORDERED: ONDANSETRON 4 MG/2 ML VIAL IV PRN (02:59)
[2022-03-04] MEDS: HYDROCODONE/APAP 7.5/325 MG TAB PO PRN ×2 (03:18→22:02)
[2022-03-04 04:20] LABS: Absolute Lymphocytes (CBC) 1.4 K/uL (0.7-4.9); Lymphocytes % 4.1 % (15.3-44.8); MPV 7.4 fL (7.6-11.3); RBC Red Blood Cell Count 2.89 M/uL (3.86-4.86)
[2022-03-04 05:04] LABS: ALT/SGPT 52 U/L (12-78); AST/SGOT 47 U/L (15-37); Albumin 2.6 g/dL (3.4-5.0); Alkaline Phosphatase 120 U/L (45-117); BUN Blood Urea Nitrogen 9 mg/dL (7-18); Bicarbonate 33 mmol/L (21-32); Bilirubin Total 0.9 mg/dL (0.2-1.0); Glomerular Filtration Rate > 90 mL/min (=/>90); Glucose Level 91 mg/dL (74-106); Protein, Total 5.5 g/dL (6.4-8.2); Sodium Level 144 mmol/L (136-145)
[2022-03-04 05:07] LABS: Potassium 2.6 mmol/L (3.5-5.1)
[2022-03-04 05:32] LABS: Anisocytosis 1+; Blood Morphology Comment NOTED (NOT SEEN); Platelet Estimate ADEQ
[2022-03-04 05:46] LABS: Urine Appearance Clear (Clear); Urine Bilirubin Negative (Negative); Urine Blood Negative (Negative); Urine Color Yellow (Yellow); Urine Glucose Negative (Negative); Urine Protein Negative (Negative); Urine Urobilinogen 0.2 mg/dL (0.2-1.0)
[2022-03-04 05:50] LABS: Urine Microscopic Reflex ORDER UMIC
[2022-03-04 05:53] LABS: Urine RBC <5 /HPF (NONE SEEN)
[2022-03-04 05:54] LABS: Urine Bacteria <20 /HPF (<20)
--- NOTE | 2022-03-04 06:00 | P.PN ---
Date of Service: 03/04/22 Subjective: overall feels about the same as last night potassium unchanged continues with loose stool, decreased appetite reports intermittent palpitations chronically, no change recently ROS: 10 point ROS as noted above, otherwise negative Physical exam GEN: Alert, oriented, fatigued appearing HEENT: Normal conjunctiva, sclera anicteric CV: Regular rate and rhythm, no edema Pulm: Non-labored respirations on room air ABD: Soft, nondistended Neuro: Normal speech, normal affect Problem List Severe hypokalemia Hypomagnesemia Diarrhea likely related to chemotherapy Leukocytosis/bandemia Stage IV colon cancer with metastasis to liver, brain on chemo 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
[2022-03-04] MEDS: KCL 20 MEQ/100 mL IVPB 20 MEQ/100 ML BAG IV SCH ×5 (06:09→18:09)
[2022-03-04] MEDS: APIXABAN 5 MG TABLET PO SCH ×2 (08:16→20:30)
[2022-03-04] MEDS: NS KCL 20MEQ 20 MEQ/1,000 ML BAG IV SCH ×2 (08:17→22:59)
[2022-03-04] MEDS: LOPERAMIDE HCL 2 MG CAPSULE PO PRN ×3 (10:35→23:42)
[2022-03-04] MEDS ORDERED: POTASSIUM CL SA 10 MEQ TAB PO ONE (17:59)
[2022-03-05 01:33] VITALS: O2SAT 100
[2022-03-05] MEDS: NS KCL 20MEQ 20 MEQ/1,000 ML BAG IV SCH ×2 (02:00→10:17)
[2022-03-05 06:10] LABS: Absolute Lymphocytes (CBC) 1.4 K/uL (0.7-4.9); Hematocrit 25.1 % (36.0-45.0); Lymphocytes % 5.9 % (15.3-44.8); MPV 7.7 fL (7.6-11.3); RBC Red Blood Cell Count 2.63 M/uL (3.86-4.86)
[2022-03-05 06:30] LABS: ALT/SGPT 39 U/L (12-78); AST/SGOT 29 U/L (15-37); Albumin 2.4 g/dL (3.4-5.0); Alkaline Phosphatase 111 U/L (45-117); BUN Blood Urea Nitrogen 5 mg/dL (7-18); Bicarbonate 33 mmol/L (21-32); Glomerular Filtration Rate > 90 mL/min (=/>90); Glucose Level 79 mg/dL (74-106); Magnesium 1.6 mg/dL (1.8-2.4); Potassium 3.5 mmol/L (3.5-5.1); Sodium Level 143 mmol/L (136-145)
--- NOTE | 2022-03-05 07:48 | EKG ---
Test Date: 2022-03-03 Test Time: 17:13:27 Calculating Machine Mechanic: KATIE MEASUREMENT RESULTS: Intervals: Rate: 57 [place]: 138 QRSD: 88 QT: 418 QTc: 406 [place]: P: 30 [place]: 138 QRS: -8 T: 42 INTERPRETIVE STATEMENTS: Sinus bradycardia Low voltage QRS Cannot rule out Anterior infarct, age undetermined Abnormal ECG Compared to ECG 01/24/2022 01:31:09 Sinus rhythm no longer present Myocardial infarct finding still present Electronically Signed On 03-05-22 07:42:51 CDT by Joe Wilkins
[2022-03-05 08:33] LABS: Anisocytosis 1+; Platelet Estimate DECR; Platelets, Giant SLIGHT
[2022-03-05 08:35] LABS: Blood Morphology Comment NOTED (NOT SEEN)
[2022-03-05 08:52] LABS: White Blood Cell Scan OK (OK)
[2022-03-05] MEDS ORDERED: Magnesium Sulfate 2gm IVPB 2 G/50 ML BAG IV ONE (09:00)
[2022-03-05] MEDS ORDERED: POTASSIUM CL SA 10 MEQ TAB PO SCH (09:00)
--- NOTE | 2022-03-05 09:35 | P.CNS ---
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 Allergies No Known Allergies Allergy (Verified 09/21/21 10:32) Home Medications: Apixaban [Eliquis] 1 tab PO BID 01/24/22 Gabapentin 300 tab PO TID 01/24/22 Hydrocodone 5/APAP 325 [[place] 5/325*] 1 tab PO Q4H 01/24/22 Hyoscyamine Sulfate [Levsin TAB*] 0.125 mg PO Q6H 03/04/22 Prochlorperazine Maleate 10 mg PO Q6H PRN 03/04/22 dexAMETHasone [Dexamethasone] 4 mg PO BID 03/04/22 Cholestyramine/Asp [Questran Light] 4 gm PO DAILY 30 Days #30 packet 03/05/22 Potassium Oral Tab [Klor-Con 10 mEq Tab*] 2 tab PO DAILY 7 Days #14 tab 03/05/22 - Past Medical/Surgical History Diabetic: Yes -: stage 4 adenocarcinoma mets to colon and to liver/brain -: Hyperlipidemia -: Diabetes mellitus type 2diet controlled -: IJ blood clot on anticoagulation -: gastric sleeve 07/2021 -: good -: appy -: C section -: portacath placement Psychosocial/ Personal History: Lives at home with family - Social History Alcohol use: No CD- Drugs: No Caffeine use: Yes Place of Residence: Home Review of Systems General: Unremarkable Eyes: Unremarkable ENT: Unremarkable Respiratory: Unremarkable Cardiovascular: Unremarkable Gastrointestinal: Nausea, Diarrhea Genitourinary: Unremarkable Musculoskeletal: Unremarkable Integumentary: Unremarkable Neurological: Unremarkable Lymphatics: Unremarkable Physical Examination Temp Pulse Resp BP Pulse Ox 97.4 F 67 15 106/70 99 03/05/22 08:00 03/05/22 08:00 03/05/22 08:00 03/05/22 08:00 03/05/22 08:00 General: In no apparent distress HEENT: Atraumatic, Normocephalic Neck: Supple, JVD not distended Respiratory: Clear to auscultation bilaterally, Other (Symmetric chest expansion) Cardiovascular: No rubs, No murmurs Gastrointestinal: Soft and benign, No guarding Musculoskeletal: No clubbing Integumentary: No warmth Neurological: Normal speech, Normal tone Urinary: Other (No bladder distention) External genitalia: Deferred Rectal: Deferred Conclusions/Impression: # Hypokalemia 2/2 upper/lower GI losses + poor dietary K intake Random urine K sl. elevated but likely inadeq sample. No clear e/o renal K wasting Serum K improved to 3.5 Recommended to check ABG to determine acid-base status & whether to replace K further but pt refused Encourage po food intake as able # Elevated serum bicarb Pt refused ABG Advised on liberal po fluid intake # HypoMg 2/2 upper/lower GI losses + poor dietary K intake Monitor/replete Mg prn # Metastatic colon cancer On oxaliplatin-based chemotx Per Oncology # Acute/chronic diarrhea likely 2/2 chemotx Optimize imodium dosing up to 16 mg/d if needed Questran po q lunchtime if imodium not enough Creon po daily if imodium + questran not enough Flagyl po bid x 2 wks, if imodium + questran + creon not enough, for ? sibo [place] po fluid intake # Leukocytosis Likely from Fulphila Monitor cbc # Hx of IJV DVT On eliquis # DM2 Mngt per primary team # Dispo Dc today or tomorrow
[2022-03-05] MEDS: APIXABAN 5 MG TABLET PO SCH (10:17)
[2022-03-05 12:45] VITALS: BP 98/67; TEMP 97.7
[2022-03-05] MEDS: LOPERAMIDE HCL 2 MG CAPSULE PO PRN (14:12)
[2022-03-05] MEDS: HYDROCODONE/APAP 7.5/325 MG TAB PO PRN (14:12)
[2022-03-05] MEDS ORDERED: HEPARIN 500 UNIT/5 ML SYR IV PRN (15:25)
--- NOTE | 2022-03-05 20:17 | P.DS ---
Admission Date: 03/03/22 Discharge Date: 03/05/22 Disposition: ROUTINE DISCHARGE Discharge Condition: GOOD Reason for Admission: Hypokalemia Consultations: Nephrology - Dr. Cowart Procedures: Problem List Severe hypokalemia secondary to GI loss Hypomagnesemia Diarrhea related to chemotherapy Leukocytosis/bandemia secondary to neupogen Stage IV colon cancer with metastasis to liver & brain on chemo History of IJ blood clot on chronic anticoagulation Diabetes mellitus type 2diet controlled Hyperlipidemia Brief History of Present Illness: 51yo F, PMH: stage IV colon cancer with mets to the liver and brain on chemotherapy, diabetes mellitus type 2diet controlled, hyperlipidemia presents the emergency department for abnormal labs, diarrhea. Patient reports this has been chronic secondary to diarrhea. She was noted to have potassium in 2s earlier in week and prescribed potassium packets. She was only able to keep down half, and threw up the rest. Repeat potassium remained low and she was advised to present to the ED. In the ED, she was noted to have K: 2.2, M.7. Hospital Course: Patient was found to be hypokalemic with mild hypomagnesemia. Urine studies were obtained and may be having some very mild urine potassium wasting. Nephrology was consulted. Recommended obtained ABG to further delineate patient's acid/base status, however patient declined. Patient's bicarb was elevated on BMP, and concern if patient was alkalotic, she may overcorrect / become hyperkalemic if her alkalosis resolved. On discussion with patient, she reported no significant change with diarrhea than typical as long as she took her imodium. Patient reported feeling better and wanting to be discharged. She has an event she needs to be at tomorrow. Patient's magnesium and potassium improved with replacement. She was discharged with 20meq daily KCL, and to recheck labs Tuesday. For her diarrhea, she was prescribed a trial of Questran once daily. Recommended to take several hours separate from other medications. Follow up with PCP next week Follow up with Heme/Onc as scheduled. Vital Signs/Physical Exam: Temp Pulse Resp BP Pulse Ox 97.7 F 77 18 98/67 100 03/05/22 12:00 03/05/22 12:00 03/05/22 12:00 03/05/22 12:00 03/05/22 12:00 Physical exam GEN: Alert, oriented, NAD HEENT: Normal conjunctiva, sclera anicteric CV: Regular rate and rhythm, no edema Pulm: Non-labored respirations on room air ABD: Soft, nondistended Neuro: Normal speech, normal affect Laboratory Data at Discharge: WBC 22.9 K/uL (4.3-10.9) H* D 03/05/22 05:50 Hgb 8.3 g/dL (12.0-15.0) L 03/05/22 05:50 Hct 25.1 % (36.0-45.0) L 03/05/22 05:50 Plt Count 93 K/uL (152-406) L* D 03/05/22 05:50 PT Cancelled 03/03/22 19:18 INR Cancelled 03/03/22 19:18 Sodium 143 mmol/L (136-145) 03/05/22 05:50 Potassium 3.5 mmol/L (3.5-5.1) 03/05/22 05:50 BUN 5 mg/dL (7-18) L 03/05/22 05:50 Creatinine 0.19 mg/dL (0.55-1.3) L 03/05/22 05:50 Glucose 79 mg/dL (74-106) 03/05/22 05:50 Phosphorus 3.6 mg/dL (2.5-4.9) 03/03/22 18:45 Magnesium 1.6 mg/dL (1.8-2.4) L 03/05/22 05:50 Total Bilirubin 1.0 mg/dL (0.2-1.0) 03/05/22 05:50 AST 29 U/L (15-37) 03/05/22 05:50 ALT 39 U/L (12-78) 03/05/22 05:50 Alkaline Phosphatase 111 U/L (45-117) 03/05/22 05:50 Home Medications: Apixaban [Eliquis] 1 tab PO BID 01/24/22 Gabapentin 300 tab PO TID 01/24/22 Hydrocodone 5/APAP 325 [[place] 5/325*] 1 tab PO Q4H 01/24/22 Hyoscyamine Sulfate [Levsin TAB*] 0.125 mg PO Q6H 03/04/22 Prochlorperazine Maleate 10 mg PO Q6H PRN 03/04/22 dexAMETHasone [Dexamethasone] 4 mg PO BID 03/04/22 Cholestyramine/Asp [Questran Light] 4 gm PO DAILY 30 Days #30 packet 03/05/22 Potassium Oral Tab [Klor-Con 10 mEq Tab*] 2 tab PO DAILY 7 Days #14 tab 03/05/22 New Medications: Potassium Oral Tab [Klor-Con 10 mEq Tab*] 2 tab PO DAILY 7 Days #14 tab Cholestyramine/Asp [Questran Light] 4 gm PO DAILY 30 Days #30 packet Followup: Marco Antonio Lopez, [Primary Care Provider] - (Call to schedule appointment) Time spent managing pt's care (in minutes): 45
== END 2022-03-05 15:40 | disposition home or self-care (01) ==
LOC: ER 15:35 → ERHOLD 21:04 → 2ND 23:27
PROVIDERS: ADMIT Hospitalist; ATTEND Hospitalist
DX: E87.6 Hypokalemia (principal); C18.9 Malignant neoplasm of colon, unspecified; C78.7 Secondary malignant neoplasm of liver and intrahepatic bile duct; C79.31 Secondary malignant neoplasm of brain; E83.42 Hypomagnesemia; K52.1 Toxic gastroenteritis and colitis; T45.1X5A Adverse effect of antineoplastic and immunosuppressive drugs, initial encounter; D72.825 Bandemia; E11.9 Type 2 diabetes mellitus without complications; E78.5 Hyperlipidemia, unspecified; D64.9 Anemia, unspecified; Z86.718 Personal history of other venous thrombosis and embolism; Z79.01 Long term (current) use of anticoagulants; Z98.84 Bariatric surgery status; Z90.49 Acquired absence of other specified parts of digestive tract; Z20.822 Contact with and (suspected) exposure to COVID-19
CPT/HCPCS: 96365; 96367; 93005; 87088; 85025 ×3; 87086; 80048; 36415 ×2; 83735 ×3; 84100; 84132 ×3; 84300; 80076; 82570; 84484; 80053 ×2; 83880; 83930; 83935; 84156; 71045; 96375; 99285; 96366; U0003; J3480 ×11; J3475 ×2; J1642; J7050; J7030; J3490; G0378 ×4; 81003; 81015

== ENCOUNTER 2022-03-09 22:31 | Inpatient (IN) | payer BC ==
--- OUTSIDE RECORDS SUMMARY | 2022-03-09 22:35 | XMS REPORT | Continuity of Care Document ---
:1970 Author Organization [facility] t Address [address] [place] [address] Care Team Providers Name Role Phone THALIA [...] Effective Date Expiration Date S tera [employer]IGNA [id number] 2018 00:00:00 HMO/POS/OPEN ACCESS BCBS PPO POS EPO [id number] 2021 00:00:00 CHOICE OUT OF STATE BCBS [id number] - PPO - BCBS OPEN ACCESS [id number] HMO/POS/EPO/PPO - AETNA NETWORK OPEN [id number] ACCESS - CIGNA CVCP-AETNA [id number] AETNA [facility] [id number] 2020 00:00:00 ACCESS Problems Condition Condition Condition Status Onset Resolution Last Treating Co mments Source Name Details Category Date Date Treatment Clinician Date Rectal Rectal Disease Active [facility] cancer cancer 2-22 College (HCCode) (HCCode) 00:00: of 00 Medicin e Allergies, Adverse Reactions, Alerts Allergy Allergy Status Severity Reaction(s) Onset Inactive Treating Comm ents Source Name Type Date Date Clinician NO KNOWN Allergy Active [facility] Social History Social Habit Start Date Stop Date Quantity Comments Source History [facility] ge Alcohol Frequency of Medi cine History [facility] ge Alcohol Std Drinks of Med icine History [facility] Alcohol Binge of Medicine Exposure to Yes [facility] e SARS-CoV-2 (event) of Med icine Alcohol intake 2021-12-28 2021-12-28 Current drinker [facility] 00:00:00 00:00:00 of alcohol of Medicine (finding) Alcohol Comment 2020-10-09 2020-10-09 social [facility] llege 00:00:00 00:00:00 of Medicine Tobacco use and 2020-10-09 2020-10-09 Smokeless tobacco [facility] exposure 00:00:00 00:00:00 non-user of Medicine Sex Ass[birth year] At [birth year] [facility] llege 00:00:00 00:00:00 of Medicine Smoking Status Start Date Stop Date Source Never smoked tobacco [facility] Eze ege of Medicine Medications Ordered [...] 1 Bayl or azine 2-30 Tablet by [facility] (COMPAZINE) 00:00: mouth of 10 MG 00 every 6 Medicin tablet hours as e needed for Nausea for up to 30 doses. Vitamin D, 2020-11 Yes 1{capsu Take 1 [facility] Ergocalcife 0-11 le} capsule by Co claudette rol, 1.25 15:23: mouth of MG (34729 06 every 7 Medicin UT) CAPS days. e pantoprazol 2020- No 20mg Take 1 Maries song e 07-30 Tablet by [facility] (PROTONIX) 00:00: 05:59 mouth of 20 MG 00 :00 daily for Medicin tablet 90 days. e Take everyday for 3 months pantoprazol 2020- No 20mg Take 1 [facility]ies song e 07-30 Tablet by [facility] (PROTONIX) 00:00: 05:59 mouth of 20 MG 00 :00 daily for Medicin tablet 90 days. e Take everyday for 3 months pantoprazol 2020- No 20mg Take 1 Maries song e 07-30 Tablet by [facility] (PROTONIX) 00:00: 05:59 mouth of 20 MG [...] pain ondansetron 2020- No 4mg Take 1 Maries song (ZOFRAN-ODT 07-30 Tablet by Co llege [...] pain ondansetron 2020- No 4mg Take 1 Maries song (ZOFRAN-ODT 07-30 Tablet by Co llege [...] as needed for nausea Vitamin D, Yes [id number] TAKE 1 [facility] Ergocalc[facility] 6-03 CAPSULE BY Co llmercedese aurelia, 1.25 00:00: MOUTH of MG (38512 00 EVERY 7 Medicin UT) CAPS DAYS e Vitamin D, Yes [id number] TAKE 1 [facility] Ergocalcife 6-03 CAPSULE BY Co llege rol, 1.25 00:00: MOUTH of MG (65402 00 EVERY 7 Medicin UT) CAPS DAYS e Vitamin D, Yes [id number] TAKE 1 [facility] Ergocalcife 6-03 CAPSULE BY Julien moses, 1.25 00:00: MOUTH of MG (36377 00 EVERY 7 Medicin UT) CAPS DAYS e Vitamin D, 0 2020- No [id number] TAKE 1 [facility] Ergocalcife 6-03 10-11 CAPSULE BY Alfonso moses, 1.25 00:00: 00:00 MOUTH of MG (13265 00 :00 EVERY 7 Medicin UT) CAPS [...] e sertraline 2019-11 Yes 1{tbl} Take 1 [facility]ies song (ZOLOFT) 1-09 Tablet by Colleg e 100 MG 00:00: mouth of tablet 00 daily. Medicin e sertraline 2019-11 Yes 1{tbl} Take 1 [facility]ies song (ZOLOFT) 1-09 Tablet by Colleg e 100 MG 00:00: mouth of tablet 00 daily. Medicin e sertraline 2019-11 Yes 1{tbl} Take 1 [facility]ies song (ZOLOFT) 1-09 Tablet by Colleg e 100 MG 00:00: mouth of tablet 00 daily. Medicin e sertraline 2019-11 Yes 1{tbl} Take 1 [facility]ies song (ZOLOFT) 1-09 Tablet by Colleg e 100 MG 00:00: mouth of tablet 00 daily. Medicin e sertraline 2019-11 Yes 1{tbl} Take 1 Maries song (ZOLOFT) 1-09 Tablet by Colleg e 100 MG 00:00: mouth of tablet 00 daily. Medicin e Continuous 2019-11 Yes 1{strip 1 Strip [facility] Blood Gluc 0-12 } See Admin Eze ege Sensor 00:00: Instructio of (FREESTYLE 00 ns. Medicin CAROL 2 e SENSOR SYSTM) [facility] Continuous 2019-11 Yes 1{strip 1 Strip B aylor Blood Gluc 0-12 } See Admin Eze ege Sensor 00:00: Instructio of (FREESTYLE 00 ns. Medicin CAROL 2 e SENSOR SYSTM) [facility] Continuous 2019-11- No 1{strip 1 Strip [facility] Blood Gluc 0-12 -23 } See Admin Col lege Sensor 00:00: 00:00 Instructio of (FREESTYLE 00 :00 ns. Medicin CAROL 2 e SENSOR SYSTM) [facility] Continuous 2019-11- No 1{strip 1 Strip [facility] Blood Gluc 0-12 -23 } See Admin Col lege Sensor 00:00: 00:00 Instructio of (FREESTYLE 00 :00 ns. Medicin CAROL 2 e SENSOR SYSTM) [facility] Atorvastati Atorvastati Yes Marco Antonio [address] [facility] Calcium n Calcium 07-15 Lopez [facility] - 00:[facility]: [facility] Zoloft Zoloft Yes Marco Antonio Take 1/[address] 07-15 Lopez tab QD x 1 [facility] - 00:[facility]: week then [facility] 00 [facility] Xigduo XR Xigduo XR 2020- No Marco Antonio [address] [facility] 07-15 12 Lopez [facility] Immunizations Ordered Filled Immunization Date Status Comments Sour e Immunization Name Name PNEUMAVAX 23 PNEUMAVAX 23 2020-06-[address] [facility] - 00:00:00 [facility] Vital Signs Vital Name Observation Time Observation Value Comments Source HEIGHT 2021-08-04 06:30:00 167.6 cm WEIGHT 2021-08-04 06:30:00 114.76 kg HEIGHT 2021-08-03 08:40:00 167 cm WEIGHT 2021-08-03 08:40:00 102 kg Systolic blood 2021-12-28 20:37:00 118 mm[Hg] [facility] pressure Medicine Diastolic blood 2021-12-28 20:37:00 73 mm[Hg] [facility] Medicine Heart rate 2021-12-28 20:37:00 90 /min [facility] Body temperature 2021-12-28 20:37:00 36.89 [facility] Body height 2021-12-28 20:37:00 167.6 cm [facility] Body weight 2021-12-28 20:37:00 85.367 kg [facility] BMI 2021-12-28 20:37:00 30.38 kg/m2 [facility] Systolic blood 2021-08-17 20:11:00 115 mm[Hg] [facility] Medicine Diastolic blood 2021-08-17 20:11:00 75 mm[Hg] [facility] Medicine Heart rate 2021-08-17 20:11:00 65 /min [facility] Body temperature 2021-08-17 20:11:00 36.83 [facility] Body height 2021-08-17 20:11:00 167.6 cm [facility] C ollege of Medicine Body weight 2021-08-17 20:11:00 108.41 kg [facility] C ollege of Medicine BMI 2021-08-17 20:11:00 38.58 kg/m2 [facility] C ollege of Medicine HEIGHT 2021-08-04 06:30:00 167.6 cm WEIGHT 2021-08-04 06:30:00 114.76 kg HEIGHT 2021-08-03 08:40:00 167 cm WEIGHT 2021-08-03 08:40:00 102 kg Systolic blood 2021 17:49:00 116 mm[Hg] [facility] pressure Medicine Diastolic blood 2021 17:49:00 79 mm[Hg] [facility] pressure Medicine Heart rate 2021 17:49:00 82 /min [facility] ollege of [facility] Body temperature 2021 17:49:00 36.56 [facility] Body height 2021 17:49:00 167.6 cm [facility] C ollege of Medicine Body weight 2021 17:49:[address] [facility] ollege of Medicine BMI 2021 17:49:00 40.84 kg/m2 [facility] ollege of Medicine Systolic blood 2020-10-09 14:14:00 117 mm[Hg] [facility] pressure Medicine Diastolic blood 2020-10-09 14:14:00 77 mm[Hg] [facility] pressure Medicine Heart rate 2020-10-09 14:14:00 98 /min [facility] ollege of Medicine Body temperature 2020-10-09 14:14:00 36.83 [facility] Body height 2020-10-09 14:14:00 167.6 cm [facility] C ollege of Medicine Body weight 2020-10-09 14:14:00 108.591 kg [facility] C ollege of Medicine BMI 2020-10-09 14:14:00 38.64 kg/m2 [facility] C ollege of Medicine Systolic blood 2020-10-09 14:14:00 117 mm[Hg] [facility] pressure Medicine Diastolic blood 2020-10-09 14:14:00 77 mm[Hg] [facility] pressure Medicine Heart rate 2020-10-09 14:14:00 98 /min [facility] Body temperature 2020-10-09 14:14:00 36.83 [facility] Body height 2020-10-09 14:14:00 167.6 cm [facility] Body weight 2020-10-09 14:14:00 108.591 kg [facility] BMI 2020-10-09 14:14:00 38.64 kg/m2 [facility] Procedures This patient has no known procedures. Plan of Care Planned Activity Planned Date Details Comments Source Future Scheduled 2022-02-15 CT CHEST W ABD/PELVIS Expected: [facility] Test 00:00:00 WO/W [code = 62294] 02/15/2022, of Medic ine Expires: 12/28/2022 Future Scheduled 2021-12-29 Screening for malignant [facility] Test 07:17:16 neoplasm of colon of Medicin e (procedure) [code = 006990634] Future Scheduled 2021-12-29 Screening for malignant [facility] Test 07:17:16 neoplasm of breast of Medici ne (procedure) [code = 078520943] Future Scheduled 2021-12-29 Hepatitis C screening [facility] Test 07:17:16 (procedure) [code = of Medic ine 239208635] Future Scheduled 2021-12-29 Human immunodeficiency [facility] Test 07:17:16 virus screening of Medicine (procedure) [code = 577759848] Future Scheduled 2021-12-29 Screening for malignant [facility] Test 07:17:16 neoplasm of cervix of Medici ne (procedure) [code = 121368861] Future Scheduled 2021-12-29 COVID-19 Vaccine (3 - [facility] [employer] Test 07:17:16 Booster for Moderna of Medic ine series) [code = COVID-19 Vaccine (3 - Booster for Moderna series)] Future Scheduled 2021-12-29 FLU VACCINE > 6 MONTHS [facility] Test 07:17:16 [code = FLU VACCINE > 6 of M edicine MONTHS] Future Scheduled 2021-12-29 ZOSTER VACCINE (1 of 2) [facility] Test 07:17:16 [code = ZOSTER VACCINE of Me dicine (1 of 2)] Future Scheduled 2021-12-29 BMI FOLLOW UP PLAN [employer] Test 07:17:16 [code = BMI FOLLOW UP of Med icine PLAN] Future Scheduled 2021-12-29 TETANUS SHOT (ADULT) [facility] [employer] Test 07:17:16 [code = TETANUS SHOT of Medi cine (ADULT)] Future Scheduled 2021-12-28 WILD 1 [code = NOCPT] Ordered: [facility] [employer] Test 16:04:25 12/28/2021 of Medicine Future Scheduled 2021-12-28 TEMPUS XT TISSUE NGS Ordered: [facility] [employer] Test 15:52:56 [code = 89247206] 12/28/2021 of Medicin e Future Scheduled 2021-08-17 BMI FOLLOW UP PLAN [employer] Test 15:15:29 [code = BMI FOLLOW UP of Med icine PLAN] Future Scheduled 2021-08-17 Screening for malignant [facility] Test 15:13:47 neoplasm of colon of Medicin e (procedure) [code = 000340490] Future Scheduled 2021-08-17 Screening for malignant [facility] Test 15:13:47 neoplasm of breast of Medici ne (procedure) [code = 482602669] Future Scheduled 2021-08-17 TETANUS SHOT (ADULT) [employer] [employer] [facility] 15:13:47 [code = TETANUS SHOT of Medi cine (ADULT)] Future Scheduled 2021-08-17 Hepatitis C screening [facility] or [facility] Test 15:13:47 (procedure) [code = of Medic ine 453778379] Future Scheduled 2021-08-17 [facility] Test 15:13:47 virus screening of Medicine (procedure) [code = 337839298] Future Scheduled 2021-08-17 Screening for malignant [facility] Test 15:13:47 neoplasm of cervix of Medici ne (procedure) [code = 334019437] Future Scheduled 2021-08-17 FLU VACCINE > 6 MONTHS [facility] Test 15:13:47 [code = FLU VACCINE > 6 of M edicine MONTHS] Future Scheduled 2021-08-17 ZOSTER VACCINE (1 of 2) [facility] Test 15:13:47 [code = ZOSTER [...] colon of Medicin e (procedure) [code = 593157279] Future Scheduled 2021 Screening for malignant [facility] Test 12:49:38 neoplasm of breast of Medici ne (procedure) [code = 645953437] Future Scheduled 2021 TETANUS SHOT (ADULT) [employer] [facility] 12:49:38 [code = TETANUS SHOT of Medi cine (ADULT)] Future Scheduled 2021 Hepatitis C screening [facility] [employer] [facility] 12:49:38 (procedure) [code = of Medic ine 005646640] Future Scheduled 2021 Human immunodeficiency [facility] [employer] Test 12:49:38 virus screening of Medicine (procedure) [code = 636431921] Future Scheduled 2021 Screening for malignant [facility] [employer] Test 12:49:38 neoplasm of cervix of Medici ne (procedure) [code = 979208480] Future Scheduled 2021 FLU VACCINE > 6 MONTHS [facility] [employer] Test 12:49:38 [code = FLU VACCINE > 6 of M edicine MONTHS] Future Scheduled 2021 ZOSTER VACCINE (1 of 2) [employer] Test 12:49:38 [code = ZOSTER VACCINE of Me dicine (1 of 2)] Future Scheduled 2021 Screening for malignant [facility] Test 12:49:38 neoplasm of colon of Medicin e (procedure) [code = 449991508] Future Scheduled 2021 Screening for malignant [facility] Test 12:49:38 neoplasm of breast of Medici ne (procedure) [code = 529883556] Future Scheduled 2021 TETANUS SHOT (ADULT) [employer] [facility] 12:49:38 [code = TETANUS SHOT of Medi cine (ADULT)] Future Scheduled 2021 Hepatitis C screening [employer] [facility] [employer] [facility] 12:49:38 (procedure) [code = of Medic ine 384873045] Future Scheduled 2021 Human immunodeficiency [facility] [employer] Test 12:49:38 virus screening of Medicine (procedure) [code = 623718320] Future Scheduled 2021 Screening for malignant [facility] Test 12:49:38 neoplasm of cervix of Medici ne (procedure) [code = 861862097] Future Scheduled 2021 FLU VACCINE > 6 MONTHS [facility] [employer] [facility] 12:49:38 [code = FLU VACCINE > 6 of M edicine MONTHS] Future Scheduled 2021 ZOSTER VACCINE (1 of 2) [facility] Test 12:49:38 [code = ZOSTER VACCINE of Me dicine (1 of 2)] Future Scheduled 2021-07-17 Screening for malignant [facility] Test 10:50:40 neoplasm of colon of Medicin e (procedure) [code = 946408108] Future Scheduled 2021-07-17 Screening for malignant [facility] Test 10:50:40 neoplasm of breast of Medici ne (procedure) [code = 733599582] Future Scheduled 2021-07-17 TETANUS SHOT (ADULT) [employer] [employer] Test 10:50:40 [code = TETANUS SHOT of Medi cine (ADULT)] Future Scheduled 2021-07-17 Hepatitis C screening [facility] Test 10:50:40 (procedure) [code = of Medic ine 572445252] Future Scheduled 2021-07-17 Human immunodeficiency [facility] [employer] Test 10:50:40 virus screening of Medicine (procedure) [code = 532256913] Future Scheduled 2021-07-17 Screening for malignant [facility] Test 10:50:40 neoplasm of cervix of Medici ne (procedure) [code = 764850943] Future Scheduled 2021-07-17 FLU VACCINE > 6 MONTHS [facility] [employer] Test 10:50:40 [code = FLU VACCINE > 6 of M edicine MONTHS] Future Scheduled 2021-07-17 BMI FOLLOW UP PLAN [employer] [facility] 10:50:40 [code = BMI FOLLOW UP of Med icine PLAN] Future Scheduled PT INSTR GIVEN - Ordered: [facility] Test TOBACCO [code = NOCPT] 10/09/2020 of Me dicine Future Scheduled MAMMOGRAM ANNUAL [code [facility] Test = MAMMOGRAM ANNUAL] of Medic ine Future Scheduled TETANUS SHOT (ADULT) [employer] [facility] [code = TETANUS SHOT of Medi cine (ADULT)] Future Scheduled HEPATITIS C SCREENING [employer] [facility] [employer] [facility] [code = HEPATITIS C of Medic ine SCREENING] Future Scheduled HIV SCREENING [code = [facility] [employer] [facility] HIV SCREENING] of Medicine Future Scheduled CERVICAL CANCER [facility] ollege Test SCREENING 3 YEAR FOLLOW of M edicine UP [code = CERVICAL CANCER SCREENING 3 YEAR FOLLOW UP] Future Scheduled FLU VACCINE > 6 MONTHS [facility] [employer] [facility] [code = FLU VACCINE > 6 of M edicine MONTHS] Encounters Start End Encounter Admission Attending Care Care Encounter Source Date/Time Date/Time Type Type Clinicians Facility Department ID 2022-01-26 Outpatient [place], [place] [id number] [facility] 15:07:00 [facility] 2022-01-04 Outpatient Lopez, [place] [id number] 15:09:02 Marco [facility] 2021-12-08 Outpatient Lopez, [place] [id number] 09:05:02 Marco [facility] 2021-12-02 Outpatient Lopez, [facility] 14[facility]36:55 [facility] 2021-12-02 Outpatient Lopez, [facility] 14:07:52 Marco Antonio 44236 [facility] 2021-12-02 Outpatient Lopez, [place] [id number] 14:03:52 Marco Antonio 11903 [facility] 2021-12-02 Outpatient Lopez, [place] [id number] 13:55:47 Marco Antonio 81525 [facility] 2021-12-02 Outpatient Lopez, [place] [id number] 13:53:17 Marco Antonio 17051 [facility] 2021-12-02 Outpatient Lopez, [place] [id number] 13:11:18 Marco Antonio 90109 [facility] 2021-12-02 [facility] [id number] 12:40:47 Marco Antonio 78544 [facility] 2021-12-02 [facility] [id number] 12:36:13 Marco Antonio 18275 [facility] 2021-12-02 [facility] [id number] 12:10:36 Marco Antonio 37071 [facility] 2021-12-02 [facility] [id number] 11:38:47 Marco Antonio 84626 [facility] 2021-12-02 [facility] [id number] 11:21:02 Marco [facility] 2021-08-16 Inpatient MATTAR, [facility] Surgery [id number] [facility] 06:30:09 SAMER 2022-04-07 2022-04-07 Outpatient EL [facility] [id number] [facility] 00:00:00 00:00:00 2022-03-11 2022-03-11 Outpatient EL ALVES, [facility] [id number] [facility] 00:00:00 00:00:00 [facility] 2022-03-08 2022-03-08 Outpatient EL [facility] [id number] [facility] 06:59:19 06:59:19 2022-02-26 2022-02-26 Outpatient EL ALVES, [facility] [id number] [facility] 12:02:22 23:59:00 [facility] 2022-02-26 2022-02-26 Outpatient EL [facility] [id number] [facility] 08:03:32 08:03:32 2022-02-26 2022-02-26 Outpatient EL ALVES, [facility] [id number] [facility] 00:00:00 00:00:00 [facility] 2022-02-26 2022-02-26 [facility] [id number] 2022-02-17 2022-02-[address] [facility] [id number] SLE 07:49:49 07:49:49 2022-02-16 2022-02-16 Outpatient ANDREI DELGADO [facility] [id number] [facility] 00:00:00 23:59:00 [facility] 2022-02-16 2022-02-16 Outpatient ANDREI DELGADO [facility] [id number] [facility] 00:00:00 00:00:00 [facility] 2021-12-28 2021-12-28 Office SANDY [facility] [id number] [facility] 14:16:03 15:50:38 Visit SKYLAR Hannar 350.1.13.21 Co llege 0.2.7.2.686 of [id number] Medi sang 504 e 2021-12-09 2021-12-09 ambulatory [facility] [id number] [facility] St 00:00:00 00:00:00 [facility] 2021-11-12 2021-11-12 Outpatient SAMUEL HOOKS MED [id number] [facility] 11:20:00 23:59:00 DAPHNEY 2021-11-05 2021-11-05 Outpatient BRODY TAMEZ [facility] [id number] [facility] 13:26:47 13:40:13 ALYSSA roman of Medicin e 2021-09-23 2021-09-23 Outpatient [facility] [id number] [place] 00:00:00 00:00:00 MAVIS [address] 2021-09-23 2021-09-23 Outpatient [facility] [id number] [place] 00:00:00 00:00:00 MAVIS [address] 2021-09-14 2021-09-14 ambulatory [facility] [id number] [facility] 2021-09-09 2021-09-09 ambulatory [facility] [id number] [facility] 2021-09-02 2021-09-02 [facility] [id number] 2021-09-01 2021-09-01 [facility] [id number] 2021-08-28 2021-08-28 [facility] [id number] 2021-08-20 2021-08-20 [facility] [id number] 2021-08-17 2021-08-17 Office BRODY TAMEZ [id number] [place] [address] 14:47:06 15:14:31 Visit SAMER AMBULATOR 350.1.13.21 College Y 0.2.7.2.686 of [id number] Medi sang 805 e 2021-08-10 2021-08-10 [id number] 2021-08-10 2021-08-10 [facility] [id number] 2021-08-03 2021-08-03 Outpatient SLE [facility] [id number] [facility] 00:00:00 00:00:00 2021-07-31 2021-07-31 [id number] 2021 2021 Outpatient [facility] [id number] [facility] 00:00:00 23:59:00 Colleg e of Medicin e 2021 2021 Office BRODY Tamez [id number] [place] [address] 12:34:26 13:04:26 Visit Samer Gamil AMBULATOR 350.1.13.21 College Y 0.2.7.2.686 of [id number] [facility] 805 e [address] [facility] [id number] [facility] 00:00:00 00:00:[address] [facility] [id number] SLE 00:00:00 00:00:[address] [facility] [id number] SLE 00:00:00 00:00:00 2021-07-17 2021-07-17 Office BRODY Cao [id number] [place] [address] 11:00:00 12:00:00 Visit Jolene AMBULATOR 350.1.13.21 College Y 0.2.7.2.686 of [id number] [facility] sang 810 e 2021-05-01 2021-05-01 Outpatient [facility] [id number] [facility] 2021-04-13 2021-04-13 Outpatient [facility] [id number] [facility] 2021-03-27 2021-03-27 Outpatient [facility] [id number] [facility] 2021-03-04 2021-03-04 Outpatient BRODY CAO [id number] [facility] 09:27:48 09:43:02 JOLENE Colleg e of Medicin e 2021-02-16 2021-02-16 Outpatient BRODY CAO [id number] [facility] 09:30:25 09:54:09 JOLENE Colleg [employer] of Medicin e 2021-02-04 2021-02-04 Outpatient BRODY CAO [id number] [facility] 14:40:19 14:57:28 JOLENE Colleg e of Medicin e 2021-01-27 2021-01-27 Outpatient [facility] [id number] [facility] 2021-01-27 2021-01-27 Outpatient [facility] [id number] [facility] 2021-01-24 2021-01-24 [facility] [id number] 2021-01-09 2021-01-09 Outpatient [facility] [id number] [facility] 2021-01-07 2021-01-07 Outpatient BRODY CAO [id number] [facility] 09:28:50 09:55:15 [employer] [employer] 2020-12-10 2020-12-10 Outpatient BRODY CAO [facility] [id number] [facility] 14:28:59 14:55:01 [employer] 2020-11-13 2020-11-13 [facility] [id number] 2020-10-22 2020-10-22 Outpatient [facility] [id number] [facility] 2020-10-22 2020-10-22 Outpatient [facility] [id number] [facility] 2020-10-13 2020-10-13 Outpatient [facility] [id number] [facility] 2020-10-13 2020-10-13 Outpatient [facility] [id number] [facility] 2020-10-09 2020-10-09 Office BRODY Tamez [id number] 08:04:19 09:04:19 Visit Samebrenda Gamil AMBULATOR [id number] Y [id number] 2020-10-09 2020-10-09 Office BRODY Tamez [id number] [facility] 08:04:19 09:04:19 Visit Samebrenda Mengil AMBULATOR [id number] College Y [id number] of [id number] [facility] 800 e 2020-10-08 2020-10-08 Outpatient [facility] [id number] [facility] 2020-08-12 2020-08-12 Outpatient [facility] [id number] [facility] 2020-08-08 2020-08-08 [facility] [id number] 2020-07-15 2020-07-15 [facility] [id number] [facility] 08:30:00 08:30:00 [facility] [employer] [place] [facility] 2020-07-10 2020-07-10 [facility] [id number] 08:52:00 08:52:00 [facility] [employer] [place] [employer] [employer] [facility] 2020-06-24 2020-06-24 [facility] [id number] 15:30:00 15:30:00 [facility] [place] [place] [employer] [employer] [facility] Results Test Test Test Results Result Source Description Time Comments Comments TISSUE EXAM 2021-08- Surgical Pathology Report 04 Case: [id number] 17:14:04 Authorizing Provider: Alyssa Tamez MD Collected: 08/04/2021 08:32 AM Ordering Location: [facility] Received: 08/04/2021 10:02 AM SERVICES Pathologist: Lana Hui MD Specimen: Stomach, PARTIAL GASTRECTOMY STOMACH, PARTIAL GASTRECTOMY: - A PORTION OF GASTRIC BODY WITH NO SPECIFIC PATHOLOGIC CHANGES Signing Pathologist Direct Phone Line: [phone] signed by Lana Hui MD on 08/10/2021 [...] rugal folds. No discrete lesions are identified. Live Ammunition Inspector sections are submitted in [id number].SARINA Ochoa, ([facility]) POCT-GLUCOSE METER 2021-08-05 08:05:23 Test Item Value Reference Range Interpretation Comme [facility] POC-GLUCOSE METER (Karma Snap) 106 mg/dL 70-110 : TESTED AT [facility] [address] [facility] (test code = 1538) [facility], [address]: Undercutter Operator/Techni bryan ID = [id number] for JESSICA SALDANA A POCT-GLUCOSE [id number] 21:44:33 Test Item Value Reference Range Interpretation Comments POC-GLUCOSE METER 113 mg/dL 70-110 H : [facility] (test code = [facility], 1538) [address]: Undercutter Operator/Techni bryan ID = [id number] for DA MARTELL LÓPEZA POCT-GLUCOSE [id number] 16:59:35 Test Item Value Reference Range Interpretation Comments POC-GLUCOSE METER 151 mg/dL 70-110 H : TESTED A T [facility] ([facility]) (test code = [facility], 1538) [address]: Undercutter Operator/Techni bryan ID = [id number] for An Siri rusha POCT-GLUCOSE [id number] 13:26:55 Test Item Value Reference Range Interpretation Comments POC-GLUCOSE METER 169 mg/dL 70-110 H : TESTED A T [facility] [address] ([facility]) (test code = [facility], 1538) [address]: Undercutter Operator/Techni bryan ID = [id number] for An Peggy rush POCT-GLUCOSE [id number] 12:17:26 Test Item Value Reference Range Interpretation Comments POC-GLUCOSE METER 161 mg/dL 70-110 H : TESTED A T [facility] (BEAKER) (test code = OSMAN Anthony [facility], 1538) [address]: Undercutter Operator/Techni bryan ID = [id number] for FRANK SUNG PATIENCE URINALYSIS W/ REFLEX URINE [id number] 08:05:03 Test Item Value Reference Range Interpretation [...] = 1521) SOURCE(BEAKER) (test code = 2795) Undercutter Operator ID - [auto]Undercutter Operator ID - techSARS-COV2/RT-PCR ([facility]) 2021 23:45:05 Test Item Value Reference Range Interpretation Comments SARS-COV2/RT-PCR (test code = Negative Negative 9247034) Negative result for this test determines that [...] Healthcare Providers:https://www.molecular.parks/kaylee/RT SARS-CoV-2 HCP Fact Sheet 51- 882471.pdfFact Sheet for Healthcare Patients:https://www.molecular.parks/kaylee/RT SARS-CoV-2 Patient Fact Sheet EN 51-486363E9.jumTATVPXEEFZ1254-70-65 12:32:40 Test Item Value Reference Range Interpretation Comments CREATININE (OSIEL) 0.61 mg/dL 0.57-1.25 (test code = 358) EGFR (OSIEL) (test 104 mL/min/1.73 ESTIM ATED GFR IS code = 1092) sq m NOT ACCURATE CREATININE CLEARANCE IN PREDICTING GLOMERULAR FILTRATION RATE . ESTIMATED GFR I S NOT APPLICABLE FOR DIALYSIS PATIEN TS. Undercutter Operator ID - TYLOR [id number] 12:32:40 Test Item Value Reference Range Interpretation Comments GLUCOSE RANDOM (BEAKER) (test code 147 mg/dL 70-105 H = 652) Undercutter Operator ID - TYLOR [id number] 12:32:39 Test Item Value Reference Range Interpretation Comments BLOOD UREA NITROGEN (BEAKER) (test 11 mg/dL 7-21 code = 354) Undercutter Operator ID - TYLOR [id number] 12:32:39 Test Item Value Reference Range Interpretation Comments SODIUM (BEAKER) (test code = 381) 142 meq/L 136-145 POTASSIUM (BEAKER) (test code = 4.0 meq/L 3.5-5.1 379) CHLORIDE (BEAKER) (test code = 382) 106 meq/L 98-107 CO2 (BEAKER) (test code = 355) 27 meq/L 22-29 Undercutter Operator ID - TYLOR [id number] 12:13:22 Test Item Value Reference Range Interpretation Comments HEMOGLOBIN (BEAKER) (test code = 11.8 GM/DL 11.2-15.7 410) Undercutter Operator ID - [id number]-COV2/RT-PCR ([facility])2020-05-12 19:10:00 Test Item Value Reference Range Interpretation Comments SARS-COV2/RT-PCR (test code = Positive Not Detected, Negative A A [id number]) SARS-COV-2 PERFORMING LAB [facility] (test code = 5620509) Results are for the detection of SARS-CoV-2 [...] 564(g) of the Act.Fact Sheet for Healthcare Providers:https://www.quSkyline Financial.com/sites/default/files/product/d ocuments/Bfsm_Xvofv_CG_Iarksdtnb_Bvic_DFEO-QmI-1.pdfFact Sheet for Healthcare Patients:https://www.BidThatProject.com/sites/default/files/product/documents/Fact_Sheet_Patients_Lyra_SARS-CoV -2.pdfPerforming Laboratory:[facility] [place] [address]
[2022-03-09] MEDS ORDERED: NA CHLORIDE 0.9% 1,000 ML ONE (22:56)
[2022-03-09] MEDS ORDERED: PANTOPRAZOLE 40 MG INJ ONE ×2 (23:32→23:37)
[2022-03-09] MEDS ORDERED: NA CHLORIDE 0.9% 250 ML ONE (23:33)
[2022-03-09] MEDS ORDERED: METRONIDAZOLE 500mg IVPB 500 MG/100 ML BAG IV ONE (23:33)
[2022-03-09] MEDS ORDERED: Levofloxacin500mg IV 500 MG/100 ML BAG IV ONE (23:33)
[2022-03-09 23:40] LABS: Protime INR 2.09
[2022-03-09 23:47] LABS: Absolute Lymphocytes (CBC) 0.2 K/uL (0.7-4.9); Hematocrit 26.1 % (36.0-45.0); Lymphocytes % 75.8 % (15.3-44.8); MPV 8.9 fL (7.6-11.3); RBC Red Blood Cell Count 2.78 M/uL (3.86-4.86)
[2022-03-09 23:53] LABS: Albumin 2.3 g/dL (3.4-5.0); Bilirubin Direct 0.4 mg/dL (0-0.2); Bilirubin Total 0.9 mg/dL (0.2-1.0); Protein, Total 5.7 g/dL (6.4-8.2); Troponin High Sensitivity 19.7 pg/mL (<58.9)
[2022-03-09 23:55] LABS: Potassium 2.8 mmol/L (3.5-5.1)
[2022-03-09 23:56] LABS: Magnesium 1.1 mg/dL (1.8-2.4)
[2022-03-10] MEDS ORDERED: DIPHENHYDRAMINE 50 MG/ML VIAL ONE (00:04)
[2022-03-10] MEDS ORDERED: ACETAMINOPHEN 325 MG TABLET ONE (00:04)
[2022-03-10] MEDS ORDERED: NOREPINEPHRINE 4mg/D5W 250mL 4 MG/250 ML BAG IV ONE ×2 (00:09→05:05)
[2022-03-10 00:51] LABS: SARS-COV-2 RT PCR NEGATIVE (NEGATIVE)
[2022-03-10 01:31] LABS: Blood Morphology Comment NOTED (NOT SEEN); Platelet Estimate DECR; Teardrop Cell 1+
[2022-03-10] MEDS ORDERED: VANCOMYCIN 1 GM/VIAL ONE (01:40)
[2022-03-10] MEDS ORDERED: Magnesium Sulfate 2gm IVPB 2 G/50 ML BAG IV ONE (01:40)
[2022-03-10] MEDS ORDERED: NA CHLORIDE 0.9% 500 ML ONE ×2 (01:42→05:05)
[2022-03-10] MEDS ORDERED: CEFEPIME 1 GM/VIAL ONE (02:08)
[2022-03-10] MEDS ORDERED: NA CHLORIDE 0.9% 100 ML IV ONE (02:08)
[2022-03-10] MEDS ORDERED: KCL 20 MEQ/100 mL IVPB 100 ML IV ONE (02:09)
--- NOTE | 2022-03-10 03:35 | EDPHYS ---
Physician Documentation [facility] Name: Ailin Dickson Age: 51 yrs Sex: Female : 1970 Arrival Date: 03/09/2022 Time: 22:33 Bed 7 Private MD: CHELSEA Physician Jean-Paul Reyes HPI: 03/09 23:08 This 51 yrs old Female presents to ER via Stretcher with complaints of abd vijay pain , syncope colon cancer, pale and on chemo. 23:08 The patient presents with abdominal pain in the upper abdomen, in the lower abdomen. vijay Onset: The symptoms/episode began/occurred 3 day(s) ago. The patient presents to the emergency department with rectal bleeding. Onset: The symptoms/episode began/occurred just prior to arrival. Abdominal pain: described as constant, crampy, located in the right upper quadrant, left upper quadrant, right lower quadrant and left lower quadrant. Modifying factors: The symptoms are alleviated by nothing, remaining still, the symptoms are aggravated by movement, pressure. stage 4 cancer, colon to liver and brain. The patient has experienced syncope, became unresponsive, collapsed. Onset: The symptoms/episode began/occurred 3 day(s) ago. Duration: The patient has had multiple episodes. 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 - Social history:: Smoking status: Reported history of juuling and/or vaping. - Family history:: not pertinent. ROS: 23:08 Neck: Negative for injury, pain, and swelling. vijay 23:08 Constitutional: Positive for fatigue, malaise. 23:08 Eyes: Positive for sunken appearance. 23:08 Cardiovascular: Positive for palpitations. 23:08 Respiratory: Positive for dyspnea on exertion, shortness of breath. 23:08 Abdomen/GI: Positive for abdominal pain, of the right upper quadrant, left upper quadrant, right lower quadrant and left lower quadrant. 23:08 Skin: Positive for diaphoresis, pallor. Exam: 23:12 Head/Face: Normocephalic, atraumatic. ENT: Nares patent. No nasal discharge, no vijay septal abnormalities noted. Tympanic membranes are normal and external auditory canals are clear. Oropharynx with no redness, swelling, or masses, exudates, or evidence of obstruction, uvula midline. Mucous membranes moist. Neck: Trachea midline, no thyromegaly or masses palpated, and no cervical lymphadenopathy. Supple, full range of motion without nuchal rigidity, or vertebral point tenderness. No Meningismus. Chest/axilla: Normal chest wall appearance and motion. Nontender with no deformity. No lesions are appreciated. Respiratory: Lungs have equal breath sounds bilaterally, clear to auscultation and percussion. No rales, rhonchi or wheezes noted. No increased work of breathing, no retractions or nasal flaring. Back: No spinal tenderness. No costovertebral tenderness. Full range of motion. MS/ Extremity: Pulses equal, no cyanosis. Neurovascular intact. Full, normal range of motion. 23:12 Cardiovascular: Rate: tachycardic, actual rate is 126 bpm, Rhythm: regular, Pulses: Pulses are 4+ in bilateral radial, brachial, femoral, popliteal, posterior tibial and and dorsalis pedis arteries.. Heart sounds: normal, normal S1and S2, no S3 or S4, no murmur, no rub, no gallop, Edema: is not appreciated, JVD: is not appreciated. 23:13 Abdomen/GI: Rectal exam: rectal tone normal, Stool: refused test normal, abbott, vijay guaiac positive, soft, melena, hemorrhoid(s), are not appreciated, swelling, is not appreciated, tenderness, that is mild, Liver: no appreciated palpable abnormalities, Hernia: not appreciated. Vital Signs: 22:49 BP 63 / 50; Pulse 126; Resp 18; Temp 97.7(O); Pulse Ox 100% on R/A; Weight 73.94 kg ll3 (R); Height 5 ft. 6 in. (167.64 cm) (R); 23:45 BP 55 / 44; Pulse 121; Resp 26; Pulse Ox 100% on R/A; ld1 05/04 00:17 BP 77 / 56; Pulse 105; Resp 28; Pulse Ox 100% on R/A; ld1 00:30 BP 79 / 68; Pulse 111; Resp 31; Pulse Ox 100% on R/A; ld1 00:50 BP 65 / 40; Pulse 81; Resp 26; Pulse Ox 100% on R/A; ld1 01:03 BP 83 / 72; Pulse 102; Resp 28; Pulse Ox 100% on R/A; ld1 01:27 BP 64 / 33; Pulse 113; Resp 30; Pulse Ox 100% on R/A; ld1 01:38 BP 86 / 68; Pulse 111; Resp 29; Pulse Ox 100% on R/A; ld1 02:00 BP 44 / 35; Pulse 107 MON; Resp 30 S; Pulse Ox 100% on R/A; as6 02:21 BP 94 / 63; Pulse 109 MON; Resp 29 S; Pulse Ox 100% on R/A; as6 02:26 BP 66 / 54; Pulse 107 MON; Resp 29 S; Pulse Ox 100% on R/A; as6 02:27 BP 66 / 54; as6 02:38 BP 84 / 64; Pulse 108 MON; Resp 29 S; Pulse Ox 100% on R/A; as6 03:14 BP 92 / 78; Pulse 117 MON; Resp 28 S; Pulse Ox 100% on R/A; as6 03:25 BP 89 / 74; Pulse 111 MON; Resp 27 S; Pulse Ox 99% on R/A; as6 03:47 BP 88 / 72; Pulse 110 MON; Resp 30 S; Pulse Ox 99% on R/A; as6 04:10 BP 89 / 63; Pulse 109 MON; Resp 20 S; Pulse Ox 99% on R/A; as6 04:40 BP 99 / 75; Pulse 106 MON; Resp 24 S; Pulse Ox 100% on R/A; as6 05:00 BP 98 / 67; Pulse 101 MON; Resp 24 S; Pulse Ox 100% on R/A; as6 05:27 BP 97 / 77; Pulse 99; Resp 24 S; Pulse Ox 100% on R/A; as6 / 22:49 Body Mass Index 26.31 (73.94 kg, 167.64 cm) ll3 Procedures: 04:41 Central Line: the site was prepped with Betadine, in sterile fashion, a triple lumen vijay catheter was inserted, in the right in 3 attempts. placement was verified, by blood return, the site was dressed with using sterile technique, the patient tolerated the procedure, well. MDM: 03/09 22:44 Patient medically screened. [facility] 23:15 Differential Diagnosis sepsis. Differential Diagnosis: cardiac arrhythmia, GI bleed, vijay sepsis, vasovagal episode. Differential diagnosis: gastritis, diverticulitis, bowel obstruction, cholecystitis, diverticulitis, gastritis, GI Bleed, Irritable bowel syndrome, Mesenteric ischemia or infarction, non-specific abd pain, pancreatitis, Peptic Ulcer Disease, Pyelonephritis, urinary tract infection. Data reviewed: vital signs, nurses notes, EMS record, lab test result(s), EKG, radiologic studies, CT scan, plain films. Data interpreted: cardiac monitor technician: rate is 126 beats/min, rhythm is regular. Test interpretation: by ED physician or midlevel provider: ECG, plain radiologic studies. Counseling: I had a detailed discussion with the patient and/or guardian regarding: the historical points, exam findings, and any diagnostic results supporting the discharge/admit diagnosis, lab results, radiology results. 03/09 22:57 Order name: Type And Screen ll3 03/09 23:02 Order name: Basic Metabolic Panel; Complete Time: 00:14 [facility] 03/09 23:02 Order name: CBC with Diff; Complete Time: 03:19 [facility] 03/09 23:02 Order name: LFT's; Complete Time: 00:14 [facility] 03/09 23:02 Order name: Magnesium; Complete Time: 00:14 [facility] 03/09 23:02 Order name: NT PRO-BNP; Complete Time: 00:14 [facility] 03/09 23:02 Order name: PT-INR; Complete Time: 23:46 [facility] 03/09 23:02 Order name: Troponin HS; Complete Time: 00:14 [facility] 03/09 23:02 Order name: Lipase; Complete Time: 00:14 [facility] 03/09 23:05 Order name: Lactate; Complete Time: 00:14 [facility] 03/09 23:02 Order name: XRAY Chest (1 view) [facility] 03/09 23:04 Order name: CT Abd/Pelvis - IV Contrast Only [facility] 03/09 23:13 Order name: COVID-19/FLU A+B (Document "Date of Onset" if Symptomatic); Complete Time: mw2 03:19 03/09 23:14 Order name: Fresh Frozen Plasma [facility] 03/09 23:14 Order name: Packed RBC Leukored [facility] 03/09 23:15 Order name: CT Head Brain wo Cont [facility] 03/09 23:54 Order name: Manual Differential; Complete Time: 03:19 [facility] 03/10 03:26 Order name: Blood Culture Adult (2) [facility] 03/10 03:26 Order name: Fibrinogen [facility] 03/10 05:40 Order name: Lactate Sepsis 2 HR Follow-up [facility] 03/09 23:02 Order name: EKG; Complete Time: 23:03 [facility] 03/09 23:02 Order name: Cardiac monitoring; Complete Time: 23:23 [facility] 03/09 23:02 Order name: EKG - Nurse/Tech; Complete Time: 23:55 [facility] 03/09 23:02 Order name: IV Saline Lock; Complete Time: 23:23 [facility] 03/09 23:02 Order name: Labs collected and sent; Complete Time: 23:23 [facility] 03/09 23:02 Order name: O2 Per Protocol; Complete Time: 23:23 [facility] 03/09 23:02 Order name: O2 Sat Monitoring; Complete Time: 23:23 [facility] 03/09 23:02 Order name: IV Saline Lock - Large Bore; Complete Time: 23:23 [facility] 03/09 23:02 Order name: Misc. Order: access port; Complete Time: 23:23 [facility] 03/10 04:41 Order name: Central Line Kit; Complete Time: 04:54 [facility] Administered Medications: 23:05 Drug: NS 0.9% 1000 ml Route: IV; Rate: 1 bolus; Site: right antecubital; [facility] 03/10 06:03 Follow up: Response: No adverse reaction; IV Status: Completed infusion; IV Intake: as6 1000ml 03/09 23:23 Drug: NS 0.9% 1000 ml Route: IV; Rate: 1 bolus; Site: right antecubital; [facility] 03/10 06:02 Follow up: Response: No adverse reaction; IV Status: Completed infusion; IV Intake: as6 1000ml 03/09 23:52 Drug: levofloxacin 500 mg Volume: 100 ml; Route: IVPB; Infused Over: 60 mins; Site: ld1 right antecubital; 03/10 01:12 Follow up: Response: No adverse reaction; IV Status: Completed infusion; IV Intake: ld1 100ml 03/09 23:52 Drug: Flagyl (metroNIDAZOLE) 500 mg Volume: 100 ml; Route: IVPB; Rate: 200 ml/hr; ld1 Infused Over: 30 mins; Site: right antecubital; 03/10 01:12 Follow up: Response: No adverse reaction; IV Status: Completed infusion; IV Intake: ld1 100ml 03/09 23:53 Drug: ProTONIX (pantoprazole) 80 mg Route: IVP; Site: right antecubital; ld1 03/10 06:01 Follow up: Response: No adverse reaction as6 03/09 23:53 Drug: ProTONIX (pantoprazole) 8 mg/hr Route: IV; Rate: 25 ml/hr; Site: right ld1 antecubital; 03/10 06:02 Follow up: IV Status: Infusion continued upon admission as6 00:15 Drug: Levophed (norepinephrine) 5 mcg/min Route: IV; Rate: calculated rate; Site: ld1 Port-a-cath; 02:27 Follow up: BP 66 / 54; Rate change 17 mcg/min as6 06:03 Follow up: IV Status: Infusion continued upon admission as6 01:45 Drug: vancoMYCIN 1 grams Route: IVPB; Infused Over: 2 hrs; Site: right antecubital; ll3 06:04 Follow up: Response: No adverse reaction; IV Status: Completed infusion; IV Intake: as6 500ml 01:59 Drug: Magnesium Sulfate 2 grams Route: IVPB; Infused Over: 2 hrs; Site: right vc1 antecubital; 06:04 Follow up: Response: No adverse reaction; IV Status: Completed infusion; IV Intake: as6 100ml 03:51 Drug: Zofran (Ondansetron) 4 mg Route: IVP; Site: right antecubital; as6 06:05 Follow up: Response: No adverse reaction as6 03:52 Drug: fentaNYL (PF) 25 mcg Route: IVP; Site: right antecubital; as6 06:05 Follow up: Response: No adverse reaction; RASS: Alert and Calm (0) as6 04:00 Drug: Neupogen 480 mcg Route: Sub-Q; Site: left upper arm; as6 06:05 Follow up: Response: No adverse reaction as6 04:08 Drug: fentaNYL (PF) 25 mcg Route: IVP; Site: right antecubital; as6 06:08 Follow up: Response: No adverse reaction; RASS: Alert and Calm (0) as6 04:19 Drug: NS 0.9% 1000 ml Route: IV; Rate: 1 bolus; Site: right antecubital; ld1 06:06 Follow up: Response: No adverse reaction; IV Status: Completed infusion; IV Intake: as6 1000ml 04:34 Drug: fentaNYL (PF) 25 mcg Route: IVP; Site: right antecubital; as6 06:08 Follow up: Response: No adverse reaction; RASS: Alert and Calm (0) as6 04:54 Drug: Sodium Bicarbonate 1 amp Route: IVP; Site: right femoral; as6 06:06 Follow up: Response: No adverse reaction as6 04:54 Drug: D5W 1000 ml, Sodium Bicarbonate 150 mEq Route: IV; Rate: 100 calculated rate; as6 Site: right femoral; 06:07 Follow up: IV Status: Infusion continued upon admission as6 04:57 CANCELLED (Duplicate Order): NS 0.9% 1000 ml IV at 1 bolus Per protocol; 1000 mL bolus vc1 05:08 Drug: Potassium Chloride 20 mEq Route: IV; Rate: per protocol; Site: right femoral; as6 06:03 Follow up: IV Status: Infusion continued upon admission as6 05:11 Drug: fentaNYL (PF) 25 mcg Route: IVP; Site: right antecubital; as6 06:09 Follow up: Response: No adverse reaction; RASS: Alert and Calm (0) as6 05:14 Drug: NS 0.9% 1000 ml Route: IV; Rate: 1 bolus; Site: right femoral; as6 06:09 Follow up: IV Status: Infusion continued upon admission as6 05:15 Drug: NS 0.9% 500 ml Route: IV; Rate: bolus; Site: right femoral; as6 06:09 Follow up: Response: No adverse reaction; IV Status: Completed infusion; IV Intake: as6 500ml 05:18 Drug: Cefepime 1 grams Route: IVPB; Rate: 200 ml/hr; Infused Over: 30 mins; Site: right as6 antecubital; 06:04 Follow up: Response: No adverse reaction; IV Status: Completed infusion; IV Intake: as6 100ml Disposition Summary: 03/10/22 03:35 Hospitalization Ordered Hospitalization Status: Inpatient Admission vijay Provider: Alejandro Elias cha Location: Intensive Care Unit vijay Condition: Serious vijay Problem: new vijay Symptoms: have improved vijay Bed/Room Type: Standard [facility] Room Assignment: 6-(03/10/22 03:53) cg Diagnosis - Abdominal pain, Generalized vijay - Other and unspecified intestinal obstruction - mid to distal, developing SBO vijay - Hypotension, unspecified vijay - Hypokalemia vijay - Diarrhea, unspecified vijay - Anemia, unspecified vijay - Hypomagnesemia vijay - residential (current) use of anticoagulants vijay - Neutropenia, unspecified vijay - Thrombocytopenia, unspecified vijay Forms: - Medication Reconciliation Form vijay - SBAR form vijay Signatures: Dispatcher [employer] EDMS Jean-Paul Reyes MD MD cha Mickail, Joel, PA PA jmm Garcia, Cindy, RN RN cg Dilma Prince RN RN ld1 Rishabh Reyes RN RN as6 Kiera Phelps RN RN ll3 Amy Domingo RN RN vc1 Corrections: (The following items were deleted from the chart) 03/09 23:13 23:05 ABO/RH typing ordered. EDMS EDMS 23:13 23:05 Antibody Screen ordered. EDMS EDMS 23:17 23:03 LACTATE+C.LAB.BRZ ordered. EDMS EDMS 03/10 02:47 03/09 23:02 Blood Transfusion Consent ordered. vijay vijay 03/10 03:53 03:35 vijay cg 04:57 04:40 NS 0.9% 1000 ml IV at 1 bolus Per protocol; 1000 mL bolus ordered. vijay vc1
--- NOTE | 2022-03-10 03:35 | ER ---
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 Coronavirus screen: Vaccine status: Patient reports receiving the 2nd dose of the covid vaccine. diarrhea, vomiting. Ebola Screen: No symptoms or risks identified at this time. Risk Assessment: Do you want to hurt yourself or someone else? Patient reports no desire to harm self or others. Onset of symptoms was March 09, 2022. Care prior to arrival: Medication(s) given: Tylenol, 1000 mg, zofran 4 mg, 200 ml of LR IV initiated. 22 GA, in the right antecubital area, Glucose check: 324. Activity prior to arrival: incontinence, vomiting. 22:34 Method Of Arrival: Stretcher ll3 22:34 Acuity: MADDI 3 ll3 22:57 Initial Sepsis Screen: Does the patient meet any 2 criteria? RR > 20 per min. Mean ll3 Arterial Pressure (MAP) < 65. HR > 90 bpm. Yes Does the patient have a suspected source of infection? No. Patient's initial sepsis screen is negative. Triage Assessment: 22:43 General: Appears uncomfortable, Behavior is calm, cooperative. Pain: Complains of pain ll3 in ALL over. Neuro: Level of Consciousness is awake, alert, obeys commands, Oriented to person, place, time, situation, Reports a syncopal episode weakness. Cardiovascular: Patient's skin is warm and dry. Respiratory: Respiratory effort is even, unlabored, Respiratory pattern is regular, symmetrical. GI: Reports diarrhea, nausea, vomiting. Derm: Skin is diaphoretic, Skin is dusky. 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 - Social history:: Smoking status: Reported history of juuling and/or vaping. - Family history:: not pertinent. Screenin:53 Abuse screen: Denies threats or abuse. Nutritional screening: No deficits noted. ll3 Tuberculosis screening: No symptoms or risk factors identified. Fall Risk Fall in past 12 months (25 points). No secondary diagnosis (0 pts). IV access (20 points). Ambulatory Aid- None/Bed Rest/Nurse Assist (0 pts). Gait- Weak (10 pts.). Mental Status- Oriented to own ability (0 pts). Total Martinez Fall Scale indicates High Risk Score (45 or more points). Fall prevention measures have been instituted. Side Rails Up X 2 Placed Close to Nursing Station Family Present and informed to notify staff if the need to leave the bedside As available patient and family educated on Fall Prevention Program and Strategies. Assessment: 23:55 General: Appears in no apparent distress. uncomfortable, Behavior is cooperative, ld1 drowsy. Pain: Complains of pain in abdomen Pain currently is 9 out of 10 on a pain scale. Quality of pain is described as sharp, shooting, Is continuous. Neuro: Level of Consciousness is awake, obeys commands, Oriented to person, place, time, situation. Cardiovascular: Capillary refill < 3 seconds Patient's skin is warm and dry. Rhythm is sinus tachycardia. Respiratory: Airway is patent Respiratory effort is even, labored. GI: Abdomen is flat, non-distended, Reports lower abdominal pain, upper abdominal pain, nausea. : No signs and/or symptoms were reported regarding the genitourinary system. EENT: No signs and/or symptoms were reported regarding the EENT system. Derm: No signs and/or symptoms reported regarding the dermatologic system. Musculoskeletal: No signs and/or symptoms reported regarding the musculoskeletal system. 03/10 00:01 Reassessment: Critical results Potassium 2.8, Mg 1.1, Lactate 8.2, MD notified. vc1 00:15 Reassessment: Levophed initiated due to BP 55/44. ld1 01:03 Reassessment: No changes from previously documented assessment. Pt reporting abdominal ld1 pain. Patient states symptoms have not improved. 01:26 Reassessment: Called report to Jocelyn RAILROAD MECHANIC. Waiting on orders to take patient upstairs.ld1 02:21 General: Appears ill, slender, Behavior is drowsy, flat, quiet. Neuro: Level of as6 Consciousness is obeys commands, lethargic. Cardiovascular: Rhythm is sinus tachycardia. Respiratory: Respiratory effort is even, unlabored, Respiratory pattern is regular, symmetrical. 05:20 Reassessment: No changes from previously documented assessment. Derm: Skin is pale. as6 Vital Signs: 03/09 22:49 BP 63 / 50; Pulse 126; Resp 18; Temp 97.7(O); Pulse Ox 100% on R/A; Weight 73.94 kg ll3 (R); Height 5 ft. 6 in. (167.64 cm) (R); 23:45 BP 55 / 44; Pulse 121; Resp 26; Pulse Ox 100% on R/A; ld1 05/04 00:17 BP 77 / 56; Pulse 105; Resp 28; Pulse Ox 100% on R/A; ld1 00:30 BP 79 / 68; Pulse 111; Resp 31; Pulse Ox 100% on R/A; ld1 00:50 BP 65 / 40; Pulse 81; Resp 26; Pulse Ox 100% on R/A; ld1 01:03 BP 83 / 72; Pulse 102; Resp 28; Pulse Ox 100% on R/A; ld1 01:27 BP 64 / 33; Pulse 113; Resp 30; Pulse Ox 100% on R/A; ld1 01:38 BP 86 / 68; Pulse 111; Resp 29; Pulse Ox 100% on R/A; ld1 02:00 BP 44 / 35; Pulse 107 MON; Resp 30 S; Pulse Ox 100% on R/A; as6 02:21 BP 94 / 63; Pulse 109 MON; Resp 29 S; Pulse Ox 100% on R/A; as6 02:26 BP 66 / 54; Pulse 107 MON; Resp 29 S; Pulse Ox 100% on R/A; as6 02:27 BP 66 / 54; as6 02:38 BP 84 / 64; Pulse 108 MON; Resp 29 S; Pulse Ox 100% on R/A; as6 03:14 BP 92 / 78; Pulse 117 MON; Resp 28 S; Pulse Ox 100% on R/A; as6 03:25 BP 89 / 74; Pulse 111 MON; Resp 27 S; Pulse Ox 99% on R/A; as6 03:47 BP 88 / 72; Pulse 110 MON; Resp 30 S; Pulse Ox 99% on R/A; as6 04:10 BP 89 / 63; Pulse 109 MON; Resp 20 S; Pulse Ox 99% on R/A; as6 04:40 BP 99 / 75; Pulse 106 MON; Resp 24 S; Pulse Ox 100% on R/A; as6 05:00 BP 98 / 67; Pulse 101 MON; Resp 24 S; Pulse Ox 100% on R/A; as6 05:27 BP 97 / 77; Pulse 99; Resp 24 S; Pulse Ox 100% on R/A; as6 03/09 22:49 Body Mass Index 26.31 (73.94 kg, 167.64 cm) ll3 ED Course: 03/09 22:33 Patient arrived in ED. mw2 22:34 Kiera Phelps, MIREILLE is Primary Nurse. ll3 22:43 Triage completed. ll3 22:43 Arm band placed on Patient placed in an exam room, on a stretcher, on director search, ll3 on pulse oximetry. 22:44 Jean-Paul Reyes MD is Attending Physician. [facility] 22:53 Patient has correct armband on for positive identification. Bed in low position. Call ll3 light in reach. Side rails up X 1. Pulse ox on. NIBP on. 23:23 XRAY Chest (1 view) In Process Unspecified. EDMS 23:52 COVID-19/FLU A+B (Document "Date of Onset" if Symptomatic) Sent. ld1 23:55 Accessed Port-a-Cath. using accessed w/ # 20 Miller needle, ,sterile technique, per [facility] protocol. Clean \\T\\ dry. Dressing intact. Dressing loose. Good blood return. Flushes easily. 03/10 01:18 CT Abd/Pelvis - IV Contrast Only In Process Unspecified. EDMS 01:20 CT Head Brain wo Cont In Process Unspecified. EDMS 03:29 Alejandro Elias MD is Hospitalizing Provider. [facility] 04:50 Assisted provider with central line placement. Set up central line tray. Triple lumen as6 line placed in right femoral. Line placed by Jean-Paul Reyes MD Placement verified by blood return, Dressed with Tegaderm, Blood was collected. Patient tolerated well. 06:11 Patient admitted, IV remains in place. as6 Administered Medications: 03/09 23:05 Drug: NS 0.9% 1000 ml Route: IV; Rate: 1 bolus; Site: right antecubital; 3 03/10 06:03 Follow up: Response: No adverse reaction; IV Status: Completed infusion; IV Intake: as6 1000ml 03/09 23:23 Drug: NS 0.9% 1000 ml Route: IV; Rate: 1 bolus; Site: right antecubital; 3 03/10 06:02 Follow up: Response: No adverse reaction; IV Status: Completed infusion; IV Intake: as6 1000ml 03/09 23:52 Drug: levofloxacin 500 mg Volume: 100 ml; Route: IVPB; Infused Over: 60 mins; Site: ld1 right antecubital; 03/10 01:12 Follow up: Response: No adverse reaction; IV Status: Completed infusion; IV Intake: ld1 100ml 03/09 23:52 Drug: Flagyl (metroNIDAZOLE) 500 mg Volume: 100 ml; Route: IVPB; Rate: 200 ml/hr; ld1 Infused Over: 30 mins; Site: right antecubital; 03/10 01:12 Follow up: Response: No adverse reaction; IV Status: Completed infusion; IV Intake: ld1 100ml 03/09 23:53 Drug: ProTONIX (pantoprazole) 80 mg Route: IVP; Site: right antecubital; ld1 03/10 06:01 Follow up: Response: No adverse reaction as6 03/09 23:53 Drug: ProTONIX (pantoprazole) 8 mg/hr Route: IV; Rate: 25 ml/hr; Site: right ld1 antecubital; 03/10 06:02 Follow up: IV Status: Infusion continued upon admission as6 00:15 Drug: Levophed (norepinephrine) 5 mcg/min Route: IV; Rate: calculated rate; Site: ld1 Port-a-cath; 02:27 Follow up: BP 66 / 54; Rate change 17 mcg/min as6 06:03 Follow up: IV Status: Infusion continued upon admission as6 01:45 Drug: vancoMYCIN 1 grams Route: IVPB; Infused Over: 2 hrs; Site: right antecubital; ll3 06:04 Follow up: Response: No adverse reaction; IV Status: Completed infusion; IV Intake: as6 500ml 01:59 Drug: Magnesium Sulfate 2 grams Route: IVPB; Infused Over: 2 hrs; Site: right vc1 antecubital; 06:04 Follow up: Response: No adverse reaction; IV Status: Completed infusion; IV Intake: as6 100ml 03:51 Drug: Zofran (Ondansetron) 4 mg Route: IVP; Site: right antecubital; as6 06:05 Follow up: Response: No adverse reaction as6 03:52 Drug: fentaNYL (PF) 25 mcg Route: IVP; Site: right antecubital; as6 06:05 Follow up: Response: No adverse reaction; RASS: Alert and Calm (0) as6 04:00 Drug: Neupogen 480 mcg Route: Sub-Q; Site: left upper arm; as6 06:05 Follow up: Response: No adverse reaction as6 04:08 Drug: fentaNYL (PF) 25 mcg Route: IVP; Site: right antecubital; as6 06:08 Follow up: Response: No adverse reaction; RASS: Alert and Calm (0) as6 04:19 Drug: NS 0.9% 1000 ml Route: IV; Rate: 1 bolus; Site: right antecubital; ld1 06:06 Follow up: Response: No adverse reaction; IV Status: Completed infusion; IV Intake: as6 1000ml 04:34 Drug: fentaNYL (PF) 25 mcg Route: IVP; Site: right antecubital; as6 06:08 Follow up: Response: No adverse reaction; RASS: Alert and Calm (0) as6 04:54 Drug: Sodium Bicarbonate 1 amp Route: IVP; Site: right femoral; as6 06:06 Follow up: Response: No adverse reaction as6 04:54 Drug: D5W 1000 ml, Sodium Bicarbonate 150 mEq Route: IV; Rate: 100 calculated rate; as6 Site: right femoral; 06:07 Follow up: IV Status: Infusion continued upon admission as6 04:57 CANCELLED (Duplicate Order): NS 0.9% 1000 ml IV at 1 bolus Per protocol; 1000 mL bolus vc1 05:08 Drug: Potassium Chloride 20 mEq Route: IV; Rate: per protocol; Site: right femoral; as6 06:03 Follow up: IV Status: Infusion continued upon admission as6 05:11 Drug: fentaNYL (PF) 25 mcg Route: IVP; Site: right antecubital; as6 06:09 Follow up: Response: No adverse reaction; RASS: Alert and Calm (0) as6 05:14 Drug: NS 0.9% 1000 ml Route: IV; Rate: 1 bolus; Site: right femoral; as6 06:09 Follow up: IV Status: Infusion continued upon admission as6 05:15 Drug: NS 0.9% 500 ml Route: IV; Rate: bolus; Site: right femoral; as6 06:09 Follow up: Response: No adverse reaction; IV Status: Completed infusion; IV Intake: as6 500ml 05:18 Drug: Cefepime 1 grams Route: IVPB; Rate: 200 ml/hr; Infused Over: 30 mins; Site: right as6 antecubital; 06:04 Follow up: Response: No adverse reaction; IV Status: Completed infusion; IV Intake: as6 100ml Intake: 01:12 IV: 100ml; Total: 100ml. ld1 01:12 IV: 100ml; Total: 200ml. ld1 06:02 IV: 1000ml; Total: 1200ml. as6 06:03 IV: 1000ml; Total: 2200ml. as6 06:04 IV: 100ml; Total: 2300ml. as6 06:04 IV: 100ml; Total: 2400ml. as6 06:04 IV: 500ml; Total: 2900ml. as6 06:06 IV: 1000ml; Total: 3900ml. as6 06:09 IV: 500ml; Total: 4400ml. as6 Outcome: 03:35 Decision to Hospitalize by Provider. vijay 06:10 Admitted to ICU accompanied by nurse, accompanied by farhat, via stretcher, room 6, on as6 monitor, with chart, Report called to Jocelyn KENDRICK 06:10 Condition: stable 06:10 Instructed on the need for admit. 06:11 Patient left the ED. as6 Signatures: Dispatcher [employer] Jean-Paul Rosario MD MD cha Westbrook, MyKena mw2 Dilma Prince, RN RN ld1 Rishabh Reyes, RN RN as6 Kiera Phelps, RN RN ll3 Amy Domingo, RN RN vc1
[2022-03-10] MEDS ORDERED: FENTANYL CITR 100 MCG/2 ML ONE (03:49)
[2022-03-10] MEDS ORDERED: ONDANSETRON 4 MG/2 ML VIAL ONE (03:50)
[2022-03-10] MEDS ORDERED: TBO-FILGRASTIM 480 MCG/0.8 ML SYR SQ ONE (04:03)
[2022-03-10] MEDS ORDERED: D5 0.9 NS 1,000 ML IV ONE (04:21)
[2022-03-10] MEDS ORDERED: SODIUM BICARB 50 MEQ/50ML VIAL ONE (04:21)
[2022-03-10] MEDS ORDERED: NA CHLORIDE 0.9% 1,000 ML ONE ×2 (04:21→05:05)
[2022-03-10] MEDS ORDERED: D5W 1,000 ML IV ONE (04:27)
--- NOTE | 2022-03-10 04:57 | P.HP ---
Certification for Inpatient Patient admitted to: Inpatient With expected LOS: >2 Midnights <Nancy Flores - Last Filed: 03/10/22 04:51> Patient History Date of Service: 03/10/22 Reason for admission: Neutropenia, Abd Pain, N/V/D History of Present Illness: Patient is a 51 y/o F with stage 4 colon cancer with metastasis to liver and brain on chemotherapy who presented to the ED via EMS with episodes of n/v/d, abdominal pain, and syncope. She was found to be severely hypotensive, anemic, neutropenic, thrombocytopenic, hypokalemic, hypomagnesmic. Given several liters of fluid, PRBCs, FFP, and started on levophed drip. Started on triple antibiotic coverage for septic shock and given neupogen. Will admit patient to the ICU for further management. Home medications list reviewed: Yes - Past Medical/Surgical History Diabetic: Yes -: stage 4 adenocarcinoma mets to colon and to liver/brain -: Hyperlipidemia -: Diabetes mellitus type 2diet controlled -: IJ blood clot on anticoagulation -: gastric sleeve 07/2021 -: good -: appy -: C section -: portacath placement Psychosocial/ Personal History: Lives at home with family - Family History Family History: Reviewed- Non-Contributory - Social History Smoking Status: Current some day smoker (juuls/vapes) Alcohol use: No CD- Drugs: No Caffeine use: Yes Place of Residence: Home <MarkNancy - Last Filed: 03/10/22 04:51> Date of Service: 03/10/22 <Alejandro Elias - Last Filed: 03/10/22 09:32> Allergies No Known Allergies Allergy (Verified 09/21/21 10:32) Home Medications: Apixaban [Eliquis] 1 tab PO BID 01/24/22 Gabapentin 300 tab PO TID 01/24/22 Hydrocodone 5/APAP 325 [[place] 5/325*] 1 tab PO Q4H 01/24/22 Hyoscyamine Sulfate [Levsin TAB*] 0.125 mg PO Q6H 03/04/22 Prochlorperazine Maleate 10 mg PO Q6H PRN 03/04/22 dexAMETHasone [Dexamethasone] 4 mg PO BID 03/04/22 Cholestyramine/Asp [Questran Light] 4 gm PO DAILY 30 Days #30 packet 03/05/22 Potassium Oral Tab [Klor-Con 10 mEq Tab*] 2 tab PO DAILY 7 Days #14 tab 03/05/22 Review of Systems General: Weakness Gastrointestinal: Nausea, Vomiting, Abdominal Pain, Diarrhea Integumentary: Jaundice Neurological: Weakness <Nancy Flores - Last Filed: 03/10/22 04:51> Physical Examination - Physical Exam General: Alert, Oriented x3, Mild distress HEENT: Atraumatic, Scleral icterus Neck: 2+ carotid pulse no bruit Respiratory: Diminished Cardiovascular: No edema, Normal pulses Gastrointestinal: Normal bowel sounds, Non-distended, Tenderness Musculoskeletal: No swelling, No erythema, No warmth Integumentary: No rashes Neurological: Normal speech, Sensation intact - Studies Laboratory Data (last 24 hrs) 03/09/22 23:17: PT 23.3 H, INR 2.09 03/09/22 23:17: WBC 0.3 L* D, Hgb 8.9 L, Hct 26.1 L, Plt Count 25 L* D 03/09/22 23:17: Sodium 132 L, Potassium 2.8 L*, BUN 21 H, Creatinine 1.49 H D, Glucose 256 H, Magnesium 1.1 L* D, Total Bilirubin 0.9, AST 17, ALT 28, Alkaline Phosphatase 96, Lipase 11 L <Nancy Flores - Last Filed: 03/10/22 04:51> - Studies Laboratory Data (last 24 hrs) 03/09/22 23:17: PT 23.3 H, INR 2.09 03/09/22 23:17: WBC 0.3 L* D, Hgb 8.9 L, Hct 26.1 L, Plt Count 25 L* D 03/09/22 23:17: Sodium 132 L, Potassium 2.8 L*, BUN 21 H, Creatinine 1.49 H D, Glucose 256 H, Magnesium 1.1 L* D, Total Bilirubin 0.9, AST 17, ALT 28, Alkaline Phosphatase 96, Lipase 11 L <Alejandro Elias - Last Filed: 03/10/22 09:32> Assessment and Plan - Problems (Diagnosis) (1) Neutropenia Current Visit: Yes Status: Chronic Qualifiers: Neutropenia type: secondary to cancer chemotherapy Qualified Code(s): D70.1 - Agranulocytosis secondary to cancer chemotherapy; T45.1X5A - Adverse effect of antineoplastic and immunosuppressive drugs, initial encounter (2) Hypokalemia Current Visit: Yes Status: Chronic (3) Hypomagnesemia Current Visit: Yes Status: Chronic (4) Thrombocytopenia Current Visit: Yes Status: Chronic (5) SBO (small bowel obstruction) Current Visit: Yes Status: Acute (6) Hypotension Current Visit: Yes Status: Acute Qualifiers: Hypotension type: hypotension due to hypovolemia Qualified Code(s): I95.89 - Other hypotension; E86.1 - Hypovolemia (7) Bandemia Current Visit: Yes Status: Chronic (8) Colon cancer metastasized to liver Current Visit: Yes Status: Chronic (9) History of gastric bypass Current Visit: No Status: Chronic (10) Port-A-Cath in place Current Visit: Yes Status: Chronic - Plan Stage IV Colon cancer with metastasis to liver and brain on chemotherapy -admit to ICU for further management -given PRBC and FFP in the ED -patient very hypotensive secondary to hypovolemia, requiring levophed. central line placed in ED. -cont bicarb drip -septic shock: IVF, triple antibiotic coverage, blood cultures drawn -severely neutropenic secondary to chemotherapy. neupogen given in the ED. draksharam consulted -severe hypomagnesmia and hypokalemia secondary to GI losses. replete per protocol -fentanyl PRN pain as BP tolerates -CT showed developing SBO. General surgery notified and agrees to consult. No NG tube at this time. -cont home dose imodium PRN diarrhea and zofran PRN nausea -SCDs for VTE ppx Discharge Plan: Home Plan to discharge in: Greater than 2 days - Advance Directives Does patient have a Living Will: No Does patient have a Durable POA for Healthcare: No - Code Status/Comfort Care Code Status Assessed: Yes (Full) Critical Care: Yes Time Spent Managing Pts Care (In Minutes): 70 <Nancy Flores - Last Filed: 03/10/22 04:51> Date of Service: 03/10/22 Subjective: HPI as mentioned above Physical Examination: Vitals: Afebrile vital signs are stable Physical exam: Cardiovascular: Within normal limits. Lungs: Within normal limits Abdomen: Within normal limits Neuro: Awake, alert, oriented to person place and time Assessment: 1. Septic shock 2. Neutropenia Plan: 1. Continue with current plan of care as mentioned above <Alejandro Elias - Last Filed: 03/10/22 09:32>
[2022-03-10] MEDS ORDERED: Levofloxacin500mg IV 500 MG/100 ML BAG IV SCH (06:01)
[2022-03-10] MEDS ORDERED: VANCOMYCIN 1 GM in NA CHLORIDE 0.9% 250 ML IVPB SCH (06:01)
[2022-03-10] MEDS ORDERED: NA CHLORIDE 0.9% 1,000 ML IV SCH (06:01)
[2022-03-10] MEDS ORDERED: HYDROCORTISONE SUC 100 MG INJ IV ONE (06:09)
[2022-03-10] MEDS ORDERED: HYDROCORTISONE SUC 100 MG INJ ONE (06:16)
[2022-03-10] MEDS: FENTANYL CITR 100 MCG/2 ML IV PRN ×2 (06:21→10:40)
[2022-03-10] MEDS ORDERED: VANCOMYCIN 0.75 GM in NA CHLORIDE 0.9% 150 ML IVPB ONE (07:00)
[2022-03-10] MEDS ORDERED: D5W 1,000 ML with NA BICARB 8.4% 150 MEQ IV SCH ×2 (07:00)
[2022-03-10 07:27] LABS: HDL Cholesterol 55 mg/dL (40-60)
[2022-03-10] MEDS: ONDANSETRON 4 MG/2 ML VIAL IV PRN ×4 (07:30→21:19)
[2022-03-10 07:42] LABS: LDL, Direct 12 mg/dL (100-129)
[2022-03-10] MEDS ORDERED: FENTANYL CITR 100 MCG/2 ML IV ONE ×2 (07:44→09:12)
[2022-03-10] MEDS: D5W 1,000 ML with NA BICARB 8.4% 150 MEQ IV SCH ×4 (07:48→09:43)
[2022-03-10] MEDS ORDERED: MAGNESIUM 50% 3 GM in NA CHLORIDE 0.9% 100 ML IV ONE ×2 (08:00→09:00)
[2022-03-10] MEDS ORDERED: TBO-FILGRASTIM 300 MCG/0.5 ML SYR SQ SCH (09:00)
[2022-03-10] MEDS ORDERED: PROMETHAZINE INJ 25 MG/ML AMP IV PRN (09:10)
[2022-03-10] MEDS: NOREPINEPHRINE 8 MG in Dextrose 5%-Water 500 ML IV SCH ×2 (09:33→21:51)
--- NOTE | 2022-03-10 09:38 | P.PN ---
Subjective Date of Service: 03/10/22 Chief Complaint: Neutropenia, Abd Pain, N/V/D Patient hemodynamically is improving. Severely acidotic. ABG not performed. Lactic acid elevated. Bicarb drip almost completed. Repeat labs. Work on try to get Levophed off. Neupogen given. If white count not elevated will repeat. Consult hematology/oncology. Surgery consulted for enteritis/small bowel obstruction. Review of Systems 10-point ROS is otherwise unremarkable Physical Examination - Vital Signs Temperature: 97.3 F Blood Pressure: 101/75 Pulse: 117 Respirations: 16 Pulse Ox (%): 98 - Physical Exam General: Alert, In no apparent distress, Oriented x3 Respiratory: Clear to auscultation bilaterally, Normal air movement Cardiovascular: Regular rate/rhythm, Normal S1 S2, No murmurs Gastrointestinal: Normal bowel sounds, Soft and benign, Non-distended, Tenderness Musculoskeletal: No clubbing, No swelling, No tenderness Neurological: Sensation intact, Cranial nerves 3-12 intact Lymphatics: No axilla or inguinal lymphadenopathy - Studies Laboratory Data (last 24 hrs) 03/09/22 23:17: PT 23.3 H, INR 2.09 03/09/22 23:17: WBC 0.3 L* D, Hgb 8.9 L, Hct 26.1 L, Plt Count 25 L* D 03/09/22 23:17: Sodium 132 L, Potassium 2.8 L*, BUN 21 H, Creatinine 1.49 H D, Glucose 256 H, Magnesium 1.1 L* D, Total Bilirubin 0.9, AST 17, ALT 28, Alkaline Phosphatase 96, Lipase 11 L Medications List Reviewed: Yes Assessment & Plan - Problems (Diagnosis) (1) Septic shock Current Visit: Yes Status: Acute (2) SBO (small bowel obstruction) Current Visit: Yes Status: Acute (3) Colon cancer metastasized to liver Current Visit: Yes Status: Chronic (4) Neutropenia Current Visit: Yes Status: Acute (5) Thrombocytopenia Current Visit: Yes Status: Acute - Plan Plan: 1. Aggressive IV hydration 2. Bicarb drip 3. Monitor lactate 4. IV antibiotic therapy 5. Blood cultures pending 6. Repeat abdominal x-ray 7. Monitor labs 8. GI DVT prophylaxis Discharge Plan: Home Plan to discharge in: Greater than 2 days - Advance Directives Does patient have a Living Will: No Does patient have a Durable POA for Healthcare: No - Code Status/Comfort Care Code Status Assessed: Yes Code Status: Full Code Critical Care: No Time Spent Managing PTS Care (In Minutes): 40 Sepsis Focused Assessment - Focused Assessment Complete? Sepsis Focused Assessment Completed?: Yes - Sepsis Screen Result Severe Sepsis: Positive Septic Shock: Positive - Evaluation Current stage of sepsis: Septic shock - Vital Signs Reviewed: Yes Temperature: 97.3 F Heart rate: 117 Blood Pressure: 101/75 Respiratory Rate: 16 O2 Sat by Pulse Oximetry: 98 - Examination Date exam was performed: 03/10/22 Time exam was performed: 10:00 Heart: Regular rate/rhythm Lungs: Clear bilaterally Peripheral pulses: 2+ Slightly diminished Peripheral pulse location: Radial Capillary refill: <2 Seconds Skin examination: Normal turgor
[2022-03-10] MEDS: METRONIDAZOLE 500mg IVPB 500 MG/100 ML BAG IV SCH ×2 (09:46→17:17)
[2022-03-10] MEDS: HYDROCORTISONE SUC 100 MG INJ IV SCH ×2 (09:46→17:17)
[2022-03-10 10:00] LABS: Urine Appearance Clear (Clear); Urine Bilirubin Negative (Negative); Urine Blood Negative (Negative); Urine Color Yellow (Yellow); Urine Glucose 1+ (Negative); Urine Protein Negative (Negative); Urine Specific Gravity 1.015 (1.005-1.030); Urine Urobilinogen 0.2 mg/dL (0.2-1.0)
[2022-03-10 10:01] LABS: Urine Microscopic Reflex NO UMIC
--- NOTE | 2022-03-10 10:47 | RAD REPORT ---
EXAM DESCRIPTION: RAD - Chest Single View - 03/09/2022 11:22 pm CLINICAL HISTORY: COUGH TECHNIQUE: Frontal view of the chest. COMPARISON: XR Chest dated 05/12/2020 FINDINGS: Lungs: Unremarkable. No consolidation.Pleural space: Unremarkable. No pneumothorax .Heart: Unremarkable. No cardiomegaly.Mediastinum: Unremarkable.Bones/joints: Multilevel spon dylosis. No acute fracture.Tubes, lines and devices: Left chest wall Mediport catheter. IMPRESSION: No acute disease. Electronically signed by: Ramesh Gallego MD 03/09/2022 11:34 PM CDT Due to temporary technical issues with the PACS/Fluency reporting system, reports are being signed by the in house radiologist without review as a courtesy to ensure prompt reporting. The interpreting r adiologist is fully responsible for the content of the report.
--- NOTE | 2022-03-10 10:48 | RAD REPORT ---
EXAM DESCRIPTION: CT - Head Brain Wo Cont - 03/10/2022 6:47 am CLINICAL HISTORY: Brain metastases, monitor COMPARISON: None available TECHNIQUE: Axial CT of the head obtained from the skull apex to the skull base without contrast. Thi s exam was performed according to our departmental dose-optimization program, which includes automate d exposure control, adjustment of the mA and/or kV according to patient size and/or use of iterative reconstruction technique. FINDINGS: No acute intracranial hemorrhage identified. No mass, mass effect, shift of the midline, a bnormal extra-axial fluid collection or CT evidence of acute ischemic change identified. The ventricu lar system is unremarkable. No acute abnormalities of the supratentorial white matter, basal gangli a, cerebellum, or brainstem. The visualized paranasal sinuses and the mastoid air cells are relatively well aerated. No skull fr acture identified. Visualized orbits and globes are unremarkable. IMPRESSION: 1. No acute intracranial abnormality identified. Electronically signed by: Srikanth Marin 03/10/2022 1:58 AM CDT Due to temporary technical issues with the PACS/Fluency reporting system, reports are being signed by the in house radiologist without review as a courtesy to ensure prompt reporting. The interpreting r adiologist is fully responsible for the content of the report.
--- NOTE | 2022-03-10 10:50 | RAD REPORT ---
EXAM DESCRIPTION: CT - Abdomen Pelvis W Contrast - 03/10/2022 6:49 am CLINICAL HISTORY: The patient is 51 years old and is Female; Colon cancer, stage IV, monitor TECHNIQUE: Axial computed tomography images of the abdomen and pelvis with intravenous contrast. S agittal and coronal reformatted images were created and reviewed. This CT exam was performed using one or more of the following dose reduction techniques: automated exposure control, adjustment of t he mA and/or kV according to patient size, and/or use of iterative reconstruction technique. COMPARISON: CT of the abdomen and pelvis January 23, 2022 FINDINGS: LUNG BASES: Unremarkable. No mass. No consolidation.ABDOMEN: LIVER: Innumerabl e heterogeneous masses are present throughout the liver the overall appearance is grossly similar to prior exam. The largest is near the dome of the liver measuring grossly 6.4 cm, similar to prior. G ALLBLADDER AND BILE DUCTS: Surgical clips are present in the right upper quadrant, consistent with previous cholecystectomy. PANCREAS: No ductal dilation. No mass. SPLEEN: Unremarkable. AD RENALS: Unremarkable. No mass. KIDNEYS AND URETERS: Unremarkable. The kidneys enhance symmetr ically. No obstructing renal or ureteral calculus is seen. No hydronephrosis or hydroureter. No perin ephric fluid or stranding. STOMACH AND BOWEL: Postsurgical change of the stomach is present. The proximal small bowel is decompressed. The majority the small bowel is dilated and fluid-filled. Mucos al thickening with surrounding inflammatory stranding involving the distal/terminal ileum is present. The colon is decompressed.PELVIS: APPENDIX: The appendix is surgically absent. BLADDER: Th e bladder is moderately distended. REPRODUCTIVE: Unremarkable as visualized.ABDOMEN and PELVIS: INTRAPERITONEAL SPACE: Trace free fluid is present within the pelvis which is likely physiologic. Small amount of free fluid is seen tracking down the right paracolic gutter and into the pelvis. No free air. BONES/JOINTS: No lytic or blastic lesions are seen. Minimal degenerative change of the spine is present. SOFT TISSUES: The soft tissues are normal. VASCULATURE: Unremarkable. No abdominal aortic aneurysm. LYMPH NODES: Unremarkable. No enlarged lymph nodes. IMPRESSION: 1. Findings consistent with an extensive mid to distal enteritis with associated devel oping small bowelobstruction. The distal small bowel is extremely inflamed with adjacent edema in the mesentery. 2. Redemonstration of the multiple hepatic masses, grossly similar to prior exam. Electronically signed by: Lexie Aldana MD 03/10/2022 1:40 AM CDT Due to temporary technical issues with the PACS/Fluency reporting system, reports are being signed by the in house radiologist without review as a courtesy to ensure prompt reporting. The interpreting r adiologist is fully responsible for the content of the report.
[2022-03-10 11:28] LABS: Absolute Lymphocytes (CBC) 0.2 K/uL (0.7-4.9); Hematocrit 27.1 % (36.0-45.0); Lymphocytes % 50.7 % (15.3-44.8); MPV 8.3 fL (7.6-11.3); RBC Red Blood Cell Count 2.93 M/uL (3.86-4.86)
[2022-03-10 11:50] LABS: Albumin 1.8 g/dL (3.4-5.0); Bilirubin Total 0.8 mg/dL (0.2-1.0); Magnesium 1.9 mg/dL (1.8-2.4); Potassium 3.4 mmol/L (3.5-5.1); Protein, Total 4.9 g/dL (6.4-8.2)
[2022-03-10] MEDS: MORPHINE 4 MG/ML SYR IV PRN ×3 (11:53→20:27)
[2022-03-10] MEDS: PROMETHAZINE INJ 25 MG/ML AMP IV PRN ×3 (11:53→19:50)
[2022-03-10] MEDS: CEFEPIME 2 GM in NA CHLORIDE 0.9% 100 ML IV SCH (11:59)
[2022-03-10] MEDS: NA CHLORIDE 0.9% 1,000 ML IV SCH ×2 (12:32→21:05)
--- NOTE | 2022-03-10 12:42 | P.CNS ---
Date of Consult: 03/10/22 PC: I was asked to see this 51-year-old female in regards to a possible small bowel obstruction. HPC: This patient, has stage IV metastatic colon cancer. Presented to the emergency room with weakness, nausea and vomiting. PSHx: Gastric sleeve, Anita cystectomy, appendectomy, placement of a Port-A-Cath PMHx: Hyperlipidemia, diabetes type 2 Social Hx: No known allergies Sys R: Unavailable at this time O/E: Awake alert stable vitals but on Levophed HEENT: Not clinically jaundiced Chest: Chest movement equal bilaterally Abd: Abdomen is soft, not distended, no guarding [place]: Intact Data: Neutropenia, CT scan suggests possible enteritis but SBO cannot be ruled out confirm stage IV colon cancer Impression: Partial SBO Plan: Continue current plan, she does not require surgical intervention at this time and is obviously a poor surgical candidate. Patient does not want an NG tube placed nor do I think what is indicated at this current time.
--- NOTE | 2022-03-10 12:52 | EKG ---
Test Date: 2022-03-09 Test Time: 23:53:17 Facility Manager: SUE MEASUREMENT RESULTS: Intervals: Rate: 113 MD: 132 QRSD: 82 QT: 352 QTc: 482 [place]: P: 40 MD: 132 QRS: -17 T: 26 INTERPRETIVE STATEMENTS: Sinus tachycardia Possible Left atrial enlargement Nonspecific ST and T wave abnormality Abnormal ECG Compared to ECG 03/03/2022 17:13:27 ST (T wave) deviation now present Sinus bradycardia no longer present Myocardial infarct finding no longer present Electronically Signed On 03-10-22 12:51:55 CDT by Joe Wilkins
--- NOTE | 2022-03-10 12:52 | P.CNS ---
Date of Consult: 03/10/22 Reason for Consult: Septic shock Chief Complaint: Neutropenia, Abd Pain, N/V/D History of Present Illness: Patient is 51 years of age stage IV colon cancer with metastases to the liver and brain undergoing chemotherapy been complaining of nausea vomiting diarrhea abdominal pain severely hypotensive and cytopenic [place] alert responsive cooperative on Levophed Also has some diarrhea Allergies No Known Allergies Allergy (Verified 09/21/21 10:32) Home Medications: Apixaban [Eliquis] 1 tab PO BID 01/24/22 Gabapentin 300 tab PO TID 01/24/22 Hydrocodone 5/APAP 325 [[place] 5/325*] 1 tab PO Q4H 01/24/22 Hyoscyamine Sulfate [Levsin TAB*] 0.125 mg PO Q6H 03/04/22 Prochlorperazine Maleate 10 mg PO Q6H PRN 03/04/22 dexAMETHasone [Dexamethasone] 4 mg PO BID 03/04/22 Cholestyramine/Asp [Questran Light] 4 gm PO DAILY 30 Days #30 packet 03/05/22 Potassium Oral Tab [Klor-Con 10 mEq Tab*] 2 tab PO DAILY 7 Days #14 tab 03/05/22 - Past Medical/Surgical History Diabetic: Yes -: stage 4 adenocarcinoma mets to colon and to liver/brain -: Hyperlipidemia -: Diabetes mellitus type 2diet controlled -: IJ blood clot on anticoagulation -: gastric sleeve 07/2021 -: good -: appy -: C section -: portacath placement Psychosocial/ Personal History: Lives at home with family - Social History Alcohol use: No CD- Drugs: No Caffeine use: Yes Place of Residence: Home Review of Systems General: Weakness Gastrointestinal: Vomiting, Abdominal Pain Physical Examination Temp Pulse Resp BP Pulse Ox 99.8 F 117 H 16 102/62 98 03/10/22 12:00 03/10/22 12:15 03/10/22 12:23 03/10/22 12:15 03/10/22 12:23 General: Alert, Oriented x3, Mild distress HEENT: Atraumatic Neck: Supple Respiratory: Clear to auscultation bilaterally Cardiovascular: Edema Gastrointestinal: Normal bowel sounds, Tenderness Musculoskeletal: No clubbing, No swelling Laboratory Data (last 24 hrs) 03/09/22 23:17: PT 23.3 H, INR 2.09 03/09/22 23:17: WBC 0.3 L* D, Hgb 8.9 L, Hct 26.1 L, Plt Count 25 L* D 03/09/22 23:17: Sodium 132 L, Potassium 2.8 L*, BUN 21 H, Creatinine 1.49 H D, Glucose 256 H, Magnesium 1.1 L* D, Total Bilirubin 0.9, AST 17, ALT 28, Alkaline Phosphatase 96, Lipase 11 L - Problems (1) Septic shock Current Visit: Yes Status: Acute Plan: Patient is 51 years of age admitted with septic shock on chemotherapy for metastatic colon cancer pancytopenic electrolyte imbalance chest x-ray is clear and is on cefepime and levofloxacin and vancomycin awaiting blood cultures to modify treatment patient is also on Flagyl alert responsive cooperative planing of abdominal discomfort and diarrhea
[2022-03-10] MEDS: KCL 20 MEQ/100 mL IVPB 20 MEQ/100 ML BAG IV SCH ×2 (13:29→15:05)
[2022-03-10 13:33] LABS: Anisocytosis 1+; Blood Morphology Comment NOTED (NOT SEEN); Hypochromasia 1+; Platelet Estimate DECR; White Blood Cell Scan OK (OK)
[2022-03-10] MEDS ORDERED: NA CHLORIDE 0.9% 1,000 ML IV ONE (15:02)
[2022-03-10] MEDS ORDERED: ALBUMIN HUMAN 25% 100 ML IV ONE (15:10)
[2022-03-10] MEDS ORDERED: PANTOPRAZOLE 40 MG INJ IVP ONE (15:25)
[2022-03-10] MEDS ORDERED: SODIUM CHLORIDE 0.9% 10ML INJ IV PRN (15:25)
[2022-03-10] MEDS ORDERED: NA CHLORIDE 0.9% 250 ML ONE (15:51)
[2022-03-10 17:43] LABS: MPV 7.9 fL (7.6-11.3)
[2022-03-10] MEDS ORDERED: Levofloxacin 750mg IV 750 MG/150 ML BAG IV SCH (21:00)
[2022-03-10] MEDS: PANTOPRAZOLE 40 MG INJ IVP SCH (21:19)
[2022-03-10] MEDS ORDERED: KCL 20 MEQ/100 mL IVPB 20 MEQ/100 ML BAG IV SCH (23:45)
[2022-03-11] MEDS ORDERED: Levofloxacin 250mg IV 250 MG/50 ML BAG IV SCH
[2022-03-11] MEDS: CEFEPIME 2 GM in NA CHLORIDE 0.9% 100 ML IV SCH ×2 (00:02→12:16)
[2022-03-11] MEDS: NS KCL 20MEQ 20 MEQ/1,000 ML BAG IV SCH ×3 (00:50→15:37)
[2022-03-11] MEDS: METRONIDAZOLE 500mg IVPB 500 MG/100 ML BAG IV SCH ×3 (00:52→17:08)
[2022-03-11] MEDS: HYDROCORTISONE SUC 100 MG INJ IV SCH ×3 (00:53→17:07)
[2022-03-11] MEDS: PROMETHAZINE INJ 25 MG/ML AMP IV PRN ×4 (00:53→17:07)
[2022-03-11] MEDS: MORPHINE 4 MG/ML SYR IV PRN (03:23)
[2022-03-11 06:11] LABS: Absolute Lymphocytes (CBC) 0.2 K/uL (0.7-4.9); Hematocrit 26.6 % (36.0-45.0); Lymphocytes % 18.7 % (15.3-44.8); MPV 8.6 fL (7.6-11.3); RBC Red Blood Cell Count 2.89 M/uL (3.86-4.86)
[2022-03-11 06:25] LABS: ALT/SGPT 18 U/L (12-78); AST/SGOT 10 U/L (15-37); Albumin 2.1 g/dL (3.4-5.0); Alkaline Phosphatase 71 U/L (45-117); BUN Blood Urea Nitrogen 14 mg/dL (7-18); Bicarbonate 24 mmol/L (21-32); Bilirubin Total 1.8 mg/dL (0.2-1.0); Glomerular Filtration Rate > 90 mL/min (=/>90); Glucose Level 153 mg/dL (74-106); Phosphorus 1.6 mg/dL (2.5-4.9); Potassium 3.1 mmol/L (3.5-5.1); Protein, Total 5.3 g/dL (6.4-8.2); Sodium Level 133 mmol/L (136-145)
[2022-03-11] MEDS ORDERED: VANCOMYCIN 1.25 GM in NA CHLORIDE 0.9% 250 ML IVPB SCH (07:00)
[2022-03-11 07:34] LABS: NT PRO-BNP 2122 pg/mL (<125)
[2022-03-11 07:43] LABS: Anisocytosis 1+; Blood Morphology Comment NOTED (NOT SEEN); Platelet Estimate DECR
[2022-03-11 07:44] LABS: ACANTHOCYTE 1+; Hypochromasia 1+; Macrocytosis 1+; Poikilocytosis 1+
[2022-03-11] MEDS: PANTOPRAZOLE 40 MG INJ IVP SCH ×2 (07:47→20:48)
[2022-03-11] MEDS: FENTANYL CITR 100 MCG/2 ML IV PRN ×3 (07:49→20:48)
--- NOTE | 2022-03-11 08:19 | P.PN ---
Subjective Date of Service: 03/11/22 Chief Complaint: Septic shock Patient is improving Levophed is now on 8 mics still has some abdominal tenderness nausea vomiting Review of Systems General: Weakness Gastrointestinal: Nausea, Abdominal Pain Physical Examination - Vital Signs Temperature: 97.8 F Blood Pressure: 105/77 Pulse: 130 Respirations: 20 Pulse Ox (%): 100 - Physical Exam General: Alert, Moderate distress Respiratory: Clear to auscultation bilaterally Cardiovascular: No edema Gastrointestinal: Tenderness (Mild generalized tenderness) - Studies Medications List Reviewed: Yes Assessment And Plan - Current Problems (Diagnosis) (1) Septic shock Current Visit: Yes Status: Acute Plan: Patient has enteritis complaining of nausea still on Levophed blood cultures so far negative DC levofloxacin continue with cefepime and vancomycin hypokalemic pancytopenic s/p platelet transfusion patient has a partial small bowel obstruction n.p.o. actually consider PPN add empiric antifungal therapy
[2022-03-11] MEDS ORDERED: POTASSIUM PHOS IN 0.9 % NACL 15 MMOL/250 ML BAG IV ONE (08:59)
[2022-03-11] MEDS ORDERED: TBO-FILGRASTIM 300 MCG/0.5 ML SYR SQ SCH ×2 (09:00)
[2022-03-11] MEDS ORDERED: TBO-FILGRASTIM 480 MCG/0.8 ML SYR SQ SCH (09:00)
[2022-03-11] MEDS ORDERED: KCL 20 MEQ/100 mL IVPB 20 MEQ/100 ML BAG IV SCH (09:00)
[2022-03-11] MEDS: VANCOMYCIN 1.25 GM in NA CHLORIDE 0.9% 250 ML IVPB SCH (09:00)
[2022-03-11] MEDS: KCL 20 MEQ/100 mL IVPB 20 MEQ/100 ML BAG IV SCH ×2 (09:30→11:36)
[2022-03-11] MEDS ORDERED: NA CHLORIDE 0.9% 1,000 ML IV ONE (09:30)
[2022-03-11] MEDS: FLUCONAZOLE 400 MG IVPB 400 MG/200 ML BAG IV SCH (09:57)
[2022-03-11] MEDS: ONDANSETRON 4 MG/2 ML VIAL IV PRN ×2 (10:18→20:28)
[2022-03-11] MEDS ORDERED: PROMETHAZINE INJ 25 MG/ML AMP IV ONE (12:51)
[2022-03-11 12:53] LABS: Hematocrit 25.3 % (36.0-45.0); MPV 8.3 fL (7.6-11.3); RBC Red Blood Cell Count 2.72 M/uL (3.86-4.86)
[2022-03-11 13:32] LABS: Anisocytosis 1+; Blood Morphology Comment NOTED (NOT SEEN); Platelet Estimate DECR
--- NOTE | 2022-03-11 13:53 | P.CNS ---
Date of Consult: 03/11/22 Chief Complaint: Septic shock History of Present Illness: The patient is a 51-year-old female with a past medical history of hyperlipidemia, diabetes type 2, gastric sleeve procedure performed on 07/2021, and newly diagnosed stage IV colon cancer with metastasis to the liver and brain . Patient states that she was diagnosed in September of last year and is currently receiving chemotherapy with no radiation. She last received chemo last Tuesday. She presented to the emergency department secondary to episodes of nausea, vomiting, diarrhea diarrhea, severe abdominal pain, and syncope. In the ED she was found to be severely hypotensive, pancytopenic, hypokalemic, and hypomagnesemic. She was given several liters of fluid, packed red blood cells, fresh frozen plasma, and started on Levophed drip. She is currently still on Levophed drip however it is being titrated down. She is currently receiving Neupogen daily until ANC is greater than 1000. Current ANC is 567, has slowly been improving since admission. Patient has moderate infectious risk based off current absolute neutrophil count. Empiric antibiotics/antifungals include: Vancomycin, Flagyl, cefepime, and fluconazole. Pending cultures include blood and fungal blood cultures. Chest x-ray showed no acute findings, CT abdomen pelvis had many chronic findings as well as enteritis with concern for to bowel developing small bowel obstruction. Head CT was obtained secondary to patient's altered mental status and hypotension, showed no acute findings. Patient currently reports nausea, vomiting, diarrhea. She denies shortness of breath or chest pain. Allergies No Known Allergies Allergy (Verified 09/21/21 10:32) Home Medications: Apixaban [Eliquis] 1 tab PO BID 01/24/22 Gabapentin 300 tab PO TID 01/24/22 Hydrocodone 5/APAP 325 [[place] 5/325*] 1 tab PO Q4H 01/24/22 Hyoscyamine Sulfate [Levsin TAB*] 0.125 mg PO Q6H 03/04/22 Prochlorperazine Maleate 10 mg PO Q6H PRN 03/04/22 dexAMETHasone [Dexamethasone] 4 mg PO BID 03/04/22 Cholestyramine/Asp [Questran Light] 4 gm PO DAILY 30 Days #30 packet 03/05/22 Potassium Oral Tab [Klor-Con 10 mEq Tab*] 2 tab PO DAILY 7 Days #14 tab 03/05/22 - Past Medical/Surgical History Diabetic: Yes -: stage 4 adenocarcinoma mets to colon and to liver/brain -: Hyperlipidemia -: Diabetes mellitus type 2diet controlled -: IJ blood clot on anticoagulation -: gastric sleeve 07/2021 -: good -: appy -: C section -: portacath placement Psychosocial/ Personal History: Lives at home with family - Social History Alcohol use: No CD- Drugs: No Caffeine use: Yes Place of Residence: Home Review of Systems 10-point ROS is otherwise unremarkable Physical Examination Temp Pulse Resp BP Pulse Ox 97.4 F 134 H 27 H 104/72 100 03/11/22 12:00 03/11/22 12:30 03/11/22 12:30 03/11/22 12:30 03/11/22 12:30 General: Mild distress HEENT: Atraumatic Neck: Supple Respiratory: Clear to auscultation bilaterally, Normal air movement Cardiovascular: Regular rate/rhythm Gastrointestinal: Other (Diffuse tenderness, distention) Musculoskeletal: No clubbing, No swelling Integumentary: No rashes, No breakdown, No significant lesion Conclusions/Impression: Antibiotics: Vancomycin: 5/5current Metronidazole: 5/4current Cefepime: 5/4current Antifungals: Fluconazole: 5/5current Assessment/plan Neutropenia in stage IV colon cancer patient Current ANC 567, as such she has moderate infectious risk. Empiric antibiotic coverage includes: Vancomycin, metronidazole, cefepime. Patient also started on empiric fluconazole. Bacterial and fungal blood cultures are pending Patient currently receiving Neupogen, continue daily until ANC is greater than 1000. Oncology team following patient. Enteritis with developing small bowel obstruction [place] patient stage IV colon cancer, continue to monitor closely. Pancytopenia Patient currently receiving Neupogen, continue to monitor closely. Hypotension Central line placed in ED on admission Currently on Levophed, however dose titrated down Plan of care discussed with Dr. Apodaca and pharmacy Thank you for consultation
[2022-03-11] MEDS: MORPHINE 2 MG/ML SYR IV PRN (17:07)
[2022-03-11] MEDS: AA 5%/D20W/ELECTROLYTES-TPN 2,000 ML IV SCH (17:08)
[2022-03-11] MEDS ORDERED: D50W 25 GM/50 ML SYRINGE IV PRN (17:09)
[2022-03-11] MEDS ORDERED: GLUCAGON 1 MG/VIAL IM PRN (17:09)
[2022-03-11] MEDS ORDERED: D10W 125 ML IV PRN (17:35)
[2022-03-11] MEDS: INSULIN -REGULAR HUMAN 50 UNIT/0.5 ML ML SQ SCH (18:00)
[2022-03-11] MEDS ORDERED: Levofloxacin500mg IV 500 MG/100 ML BAG IV SCH (21:00)
[2022-03-12] MEDS: CEFEPIME 2 GM in NA CHLORIDE 0.9% 100 ML IV SCH ×2 (00:48→11:50)
[2022-03-12] MEDS: INSULIN -REGULAR HUMAN 50 UNIT/0.5 ML ML SQ SCH ×4 (00:48→18:00)
[2022-03-12] MEDS: PROMETHAZINE INJ 25 MG/ML AMP IV PRN ×2 (01:03→13:20)
[2022-03-12] MEDS: MORPHINE 2 MG/ML SYR IV PRN ×4 (01:13→19:15)
[2022-03-12] MEDS: HYDROCORTISONE SUC 100 MG INJ IV SCH ×3 (01:14→17:23)
[2022-03-12] MEDS: METRONIDAZOLE 500mg IVPB 500 MG/100 ML BAG IV SCH ×4 (01:14→19:53)
[2022-03-12 05:21] LABS: Absolute Lymphocytes (CBC) 0.1 K/uL (0.7-4.9); Lymphocytes % 6.4 % (15.3-44.8); MPV 8.7 fL (7.6-11.3); RBC Red Blood Cell Count 2.67 M/uL (3.86-4.86)
[2022-03-12 05:40] LABS: Albumin 1.7 g/dL (3.4-5.0); Bilirubin Total 1.6 mg/dL (0.2-1.0); Magnesium 2.3 mg/dL (1.8-2.4); Potassium 3.6 mmol/L (3.5-5.1); Protein, Total 5.3 g/dL (6.4-8.2)
[2022-03-12 05:44] LABS: Phosphorus 0.7 mg/dL (2.5-4.9)
[2022-03-12] MEDS: NS KCL 20MEQ 20 MEQ/1,000 ML BAG IV SCH (05:45)
[2022-03-12] MEDS ORDERED: POTASSIUM PHOS 30 MM in NA CHLORIDE 0.9% 500 ML IV ONE (06:37)
--- NOTE | 2022-03-12 07:19 | ECHO ---
HEIGHT: 5 ft 6 in WEIGHT: 190 lb 8 oz DATE OF STUDY: 03/11/[address]: Alejandro Elias MD 2-DIMENSIONAL: YES M.MODE: YES DOPPLER: YES COLOR FLOW: YES TDS: NO PORTABLE: YES DEFINITY: NO BUBBLE STUDY: NO DIAGNOSIS: SHOCK CARDIAC HISTORY: CATHERIZATION: NO SURGERY: NO PROSTHETIC VALVE: NO PACEMAKER: NO MEASUREMENTS (cm) DIASTOLIC (NORMALS) SYSTOLIC (NORMALS) IVSd 1.0 (0.6-1.2) LA Diam 2.1 (1.9-4.0) LVEF 69% LVIDd 4.3 (3.5-5.7) LVIDs 2.7 (2.0-3.5) %FS 38% LVPWd 1.2 (0.6-1.2) Ao Diam 2.9 (2.0-3.7) 2 DIMENSIONAL ASSESSMENT: RIGHT ATRIUM: NORMAL LEFT ATRIUM: NORMAL RIGHT VENTRICLE: NORMAL LEFT VENTRICLE: HYPERDYNAMIC TRICUSPID VALVE: NORMAL MITRAL VALVE: NORMAL PULMONIC VALVE: NORMAL AORTIC VALVE: NORMAL PERICARDIAL EFFUSION: TRACE AORTIC ROOT: NORMAL LEFT VENTRICULAR WALL MOTION: NORMAL DOPPLER/COLOR FLOW: MILD TRICUSPID REGURGITATION. COMMENTS: HYPERDYNAMIC LEFT VENTRICULAR WITH EJECTION FRACTION >60%. MILD TRICUSPID REGURGITATION. TECHNOLOGIST: Darryl LANCE
[2022-03-12] MEDS: ONDANSETRON 4 MG/2 ML VIAL IV PRN (08:16)
[2022-03-12 08:37] LABS: Potassium 3.3 mmol/L (3.5-5.1)
--- NOTE | 2022-03-12 08:37 | P.PN ---
Date of Service: 03/11/22 Subjective Patient hemodynamically is improving. Still acidotic. ABG not performed. Lactic acid elevated. Bicarb drip almost completed. Repeat labs. Work on try to get Levophed off. Neupogen given. If white count not elevated will repeat. Consulted hematology/oncology. Surgery consulted for enteritis/small bowel obstruction-no intervention. Review of Systems 10-point ROS is otherwise unremarkable Physical Examination - Vital Signs reviewed - Physical Exam General: Alert, In no apparent distress, Oriented x3 Respiratory: Clear to auscultation bilaterally, Normal air movement Cardiovascular: Regular rate/rhythm, Normal S1 S2, No murmurs Gastrointestinal: Normal bowel sounds, Soft and benign, Non-distended, Tenderness Musculoskeletal: No clubbing, No swelling, No tenderness Neurological: Sensation intact, Cranial nerves 3-12 intact Assessment & Plan - Problems (Diagnosis) (1) Septic shock Current Visit: Yes Status: Acute (2) SBO (small bowel obstruction) Current Visit: Yes Status: Acute (3) Colon cancer metastasized to liver Current Visit: Yes Status: Chronic (4) Neutropenia Current Visit: Yes Status: Acute (5) Thrombocytopenia Current Visit: Yes Status: Acute - Plan Cont with POC as below: 1. Aggressive IV hydration 2. Bicarb drip; continue; switch to NS 3. Monitor lactate; still elevated 4. IV antibiotic therapy; continue 5. Blood cultures unremarkable 6. Repeat abdominal x-ray; if continued obstruction then NGT 7. Monitor labs 8. GI DVT prophylaxis Discharge Plan: Home Plan to discharge in: Greater than 2 days - Advance Directives Does patient have a Living Will: No Does patient have a Durable POA for Healthcare: No - Code Status/Comfort Care Code Status Assessed: Yes Code Status: Full Code Critical Care: No Time Spent Managing PTS Care (In Minutes): 40
[2022-03-12 08:38] LABS: Phosphorus 0.6 mg/dL (2.5-4.9)
[2022-03-12] MEDS: FLUCONAZOLE 400 MG IVPB 400 MG/200 ML BAG IV SCH (09:28)
[2022-03-12] MEDS: VANCOMYCIN 1.25 GM in NA CHLORIDE 0.9% 250 ML IVPB SCH (09:29)
[2022-03-12] MEDS: PANTOPRAZOLE 40 MG INJ IVP SCH ×2 (09:32→20:20)
[2022-03-12] MEDS: VANCOMYCIN 1.5 GM in NA CHLORIDE 0.9% 500 ML IVPB SCH ×2 (10:39→21:38)
--- NOTE | 2022-03-12 11:09 | P.PN ---
Subjective Date of Service: 03/12/22 Chief Complaint: Septic shock Patient seen and examined at bedside, altered mental status at bedside. Still having some nausea. Last bowel movement was last night. Review of Systems 10-point ROS is otherwise unremarkable Physical Examination - Vital Signs Temperature: 97.4 F Blood Pressure: 117/84 Pulse: 125 Respirations: 26 Pulse Ox (%): 98 - Studies Medications List Reviewed: Yes Assessment And Plan - Plan Physical Exam: General: AMS-slight HEENT: Atraumatic Neck: Supple Respiratory: Clear to auscultation bilaterally, Normal air movement Cardiovascular: Regular rate/rhythm Gastrointestinal: Other (Diffuse tenderness, distention) Musculoskeletal: No clubbing, No swelling Integumentary: No rashes, No breakdown, No significant lesion Conclusions/Impression: Antibiotics: Vancomycin: 5/5current Metronidazole: 5/4current Cefepime: 5/4current Antifungals: Fluconazole: 5/5current Assessment/plan Neutropenia in stage IV colon cancer patient Current ANC 2000. Recommend continuing empiric coverage for an additional 24 hours, can then start de-escalating. Empiric antibiotic coverage includes: Vancomycin, metronidazole, cefepime. Patient also started on empiric fluconazole. Blood culture showed no growth at 24 hours Blood fungal cultures pending Was receiving new Neupogen, discontinued today as ANC is greater than 1000. Oncology team following patient. Enteritis with developing small bowel obstruction [place]ela of stage IV colon cancer, continue to monitor closely. Pancytopenia Continue to monitor Hypotension Central line placed in ED on admission Currently on Levophed, however dose titrated down Plan of care discussed with Dr. Apodaca and pharmacy Thank you for consultation
--- NOTE | 2022-03-12 12:34 | P.PN ---
Date of Service: 03/11/22 (Oncology) Patient seen and examined on 03/11/2022. Late note entry due to log in issues. patient known to me since her diagnosis of metastatic colorectal adenocarcinoma. She has been on chemotherapy with FOLFOXIRI. Currently admitted with fatigue, diarrhea, N/v, enteritis, SBO causing to hypovolemic shock with significant neutropenia. when seen today, patient seemed drowsy due to medications but arousable and verbal to simple questions. ANC gradually improving on granix. Plan: Hypovolemic shock management as per ICU team 2. Severe neutropenia secondary to chemotherapy: s/s expect to improve once ANC recuperates. c/w granix 480mcg s/c daily until ANC > 1000. c/w bernard spectrum antibiotics, ID recommendations f/u blood cultures. f/u C- diff status 3. Enteritis/ SBO/ severe hypokalemia: Plan as per above. Replete potassium as per protocol f/u with Surgery recommendations. 4. Anemia: Multifactorial including myelosuppressive effect of recent chemo. Transfuse prbc if Hb < 8gm Monitor for any bleeding 5. Thrombocytopenia: Multifactorial as well including ongoing shock status, consumptive coagulopathy and also myelosuppressive effect of chemotherapy. Expect to recuperate once acute event resolves Adequate fibrinogen. Monitor for bleeding/ oozing/ bruising. Transfuse Single donor platelets if Plt count < 20K or if bleeding. Monitor PT/PTT status periodically. 6. Metastatic colon cancer: Chemo will be on hold until her s/s improve and she recuperates. Due to the severity of the enteritis, I am concerned about her tolerance to chemotherapy. Will evaluate once discharge and discuss other alternatives/ reduce dose etc. She also follows with [facility] GI [facility] as well. 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 Once discharged either f/u in [place] for the same or with Dr Posey, Radiation Oncology in [place]. I had a discussion at length with patient, her father and her family (2 sisters) about her poor prognosis with regard to the metastatic disease.
[2022-03-12] MEDS ORDERED: LORazepam 2 MG/ML VIAL IV ONE (13:29)
--- NOTE | 2022-03-12 13:54 | RAD REPORT ---
EXAM DESCRIPTION: CT - Head Brain Wo Cont - 03/12/2022 1:48 pm CLINICAL HISTORY: Alteration of awareness/confusion COMPARISON: March 10, 2022 TECHNIQUE: Computed axial tomography of the head was obtained. IV contrast was not requested. All CT scans are performed using dose optimization technique as appropriate and may include automated exposure control or mA/KV adjustment according to patient size. FINDINGS: An intracranial bleed is not seen . The ventricles are normal in caliber. No extra-axial fluid collection is noted. No significant hypodense areas within the brain Fluid within the sinuses/ mastoids is not seen. IMPRESSION: No acute intracranial abnormality is seen. If patient's symptoms persist MRI of the bra in would be recommended.
--- NOTE | 2022-03-12 14:00 | RAD REPORT ---
EXAM DESCRIPTION: CT - Chest For Pe Angio - 03/12/2022 1:48 pm CLINICAL HISTORY: Chest pain/tachycardia/arrhythmia COMPARISON: None. TECHNIQUE: Dynamically enhanced axial 3 mm thick images of the chest were obtained during administra tion of <100> mL Isovue 370 IV contrast. Coronal and oblique reconstruction images were generated and reviewed. Exam utilizes a protocol for optimal evaluation of pulmonary arterial tree. Maximum intensity projections 3D imaging was utilized All CT scans are performed using dose optimization technique as appropriate and may include automated exposure control or mA/KV adjustment according to patient size. FINDINGS: A pulmonary embolus is not seen. A thoracic aortic aneurysm is not noted. Small right pleural effusion. A pericardial effusion is not seen. Mild right and minimal left lower lobe opacities Marked dilatation of the entire esophagus which is fluid-filled IMPRESSION: Negative for a pulmonary embolism. Marked dilatation of the entire esophagus which is fluid-filled. Mild right and minimal left lower lobe opacities may indicate aspiration pneumonia
--- NOTE | 2022-03-12 14:16 | RAD REPORT ---
EXAM DESCRIPTION: CT - Abdomen Pelvis W Contrast - 03/12/2022 1:48 pm CLINICAL HISTORY: Abdominal pain COMPARISON: March 10, 2022 TECHNIQUE: Computed axial tomography of the abdomen pelvis was obtained. 100 cc Isovue-300 was admin istered intravenously. Oral contrast was not requested which limits evaluation of bowel. All CT scans are performed using dose optimization technique as appropriate and may include automated exposure control or mA/KV adjustment according to patient size. FINDINGS: Hepatic lesions are unchanged. Spleen, pancreas, adrenals and kidneys unremarkable. The transverse and left colon is markedly decompressed. The right colon is fluid-filled 3 centimeter segment of wall thickening involves ileum within right lower quadrant. Moderate dilatati on of jejunum and most of the ileum. Postsurgical changes involve stomach. Stomach is fluid-filled. E sophagus is dilated. A Andrade catheter within the bladder. Small amount of ascites IMPRESSION: Stable hepatic lesions Wall thickening involves ileum which is compatible with either inflammation or mass. There is a trans ition point with moderately dilated proximal small bowel which indicates that this is likely causing an obstruction.
[2022-03-12] MEDS ORDERED: LEVALBUTEROL 1.25 MG/3 ML NEB NEB ONE (14:28)
[2022-03-12] MEDS ORDERED: IPRATROPIUM BROM 0.5MG/2.5ML NEB ONE (14:28)
--- NOTE | 2022-03-12 15:26 | RAD REPORT ---
EXAM DESCRIPTION: [facility] Single View03/12/2022 2:35 pm CLINICAL HISTORY: Chest pain COMPARISON: March 09, 2022 FINDINGS: Mild right basilar and minimal left basilar opacities. Upper lobes are clear. Heart is borderline enlarged. Central venous catheter in place
[2022-03-12] MEDS ORDERED: AA 5%/D20W/ELECTROLYTES-TPN 2,000 ML, Lipids 20% 250 ML with MULTIVITAMINS INJ 10 ML IV SCH ×3 (17:00)
[2022-03-12] MEDS: AA 5%/D20W/ELECTROLYTES-TPN 2,000 ML, Lipids 20% 250 ML with MULTIVITAMINS INJ 10 ML IV SCH ×3 (17:23)
--- NOTE | 2022-03-12 18:27 | P.PN ---
Date of Service: 03/12/22 Subjective Patient hallucinating. Still with nausea and vomiting through the evening. We will go ahead and get CT imaging to further evaluate. Patient's blood pressure is stable but remains tachycardic. Review of Systems 10-point ROS is otherwise unremarkable Physical Examination - Vital Signs reviewed - Physical Exam General: Alert, In no apparent distress, Oriented x2; confused and hallucinating Respiratory: Basilar crackles Cardiovascular: Regular rate/rhythm, Normal S1 S2, No murmurs Gastrointestinal: Normal bowel sounds, Soft and benign, Non-distended, abdominal tenderness Musculoskeletal: No clubbing, No swelling, No tenderness Neurological: follows commands and moves all extremities; no focal deficits Assessment & Plan - Problems (Diagnosis) (1) Septic shock Current Visit: Yes Status: Acute (2) SBO (small bowel obstruction) Current Visit: Yes Status: Acute (3) Colon cancer metastasized to liver Current Visit: Yes Status: Chronic (4) Neutropenia Current Visit: Yes Status: Acute (5) Thrombocytopenia Current Visit: Yes Status: Acute - Plan Cont with POC as below: 1. IV hydration 2. Continue with TPN 3. Monitor lactate; still elevated 4. IV antibiotic therapy; continue 5. Blood cultures unremarkable 6. Repeat CT scan pending; NG tube pending 7. Monitor labs 8. GI DVT prophylaxis Discharge Plan: Home Plan to discharge in: Greater than 2 days - Advance Directives Does patient have a Living Will: No Does patient have a Durable POA for Healthcare: No - Code Status/Comfort Care Code Status Assessed: Yes Code Status: Full Code Critical Care: No Time Spent Managing PTS Care (In Minutes): 40
[2022-03-12] MEDS ORDERED: CLINDAMYCIN INJ 600 MG in NA CHLORIDE 0.9% 50 ML IV ONE (18:31)
--- NOTE | 2022-03-12 18:34 | P.PN ---
Date of Service: 03/12/[address] scan shows persistent obstruction. NG tube placed. Greater than 2 L of gastric content obtained. Concern for aspiration pneumonia. Continue with broad-spectrum antibiotic coverage. Continue NG tube to suction. Spoke with Dr. Cornell who was out of town and consulted surgery on-call Dr. Gamboa
[2022-03-12] MEDS: IPRATROPIUM BROM 0.5MG/2.5ML NEB SCH (20:15)
[2022-03-12] MEDS: LEVALBUTEROL 1.25 MG/3 ML NEB NEB SCH (20:15)
[2022-03-12 21:43] LABS: Phosphorus 1.4 mg/dL (2.5-4.9); Potassium 3.2 mmol/L (3.5-5.1)
[2022-03-12] MEDS ORDERED: POTASSIUM PHOS IN 0.9 % NACL 15 MMOL/250 ML BAG IV ONE (22:00)
--- NOTE | 2022-03-12 22:15 | CON ---
Date of Consultation: 03/12/2022 Brief History Of Present Illness: The patient is a 51-year-old female with past medical history of h yperlipidemia, diabetes, gastric sleeve procedure performed on 07/27/2021, newly diagnosed stage IV c olon cancer with metastatic lesions to the liver and brain. She was diagnosed in September and received multiple rounds of chemotherapy and got her last treatment on Tuesday. She had pro gressive metastases and was not an operative candidate. She came into the hospital with progressive nausea, vomiting, weakness, and fatigue. She was seen by Dr. Cornell from a surgical standpoint, who is following her and is currently unavailable as such I am cross covering temporarily until Dr. Ora scott will return. The patient had some hemodynamic instability with hypotension, pancytopenia, hypoka lemia, hypomagnesemia. She was transfused FFP, given pressors including Levophed, and ultimately cam e into the hospital with concerns for bowel obstruction. The patient is currently sedated and nonver bal, nonresponsive due to sedation at this time. So therefore, information is obtained from the [facility] and from the patient's family who is present at the bedside. Past Medical History: Significant for stage IV colonic adenocarcinoma with metastases to liver and b rain, hyperlipidemia, diabetes, blood clot in the internal jugular vein. Past Surgical History: Includes a gastric sleeve in 07/28, laparoscopic cholecystectomy, appendectom y, , and a Port-A-Cath placement. Social History: She lives at home. She denies smoking, alcohol, or recreational drug use by angie keller. Review of Systems: A 10-point review of systems unable to obtain. Physical Examination: Vital Signs: At the time of my examination, her BMI is 30.7. Her vital signs were a temperature of 98.3, heart rate was 125, blood pressure 153/84, SpO2 of 91% on nasal cannula oxygen. General: She was sedated, asleep, minimally arousable, profoundly lethargic. HEENT: She is otherwise normocephalic. Her sclerae were anicteric. Her mucous membranes are moist. Her oropharynx is clear. Neck: Supple without JVD. Chest: Expansion and excursion. Cardiovascular: Tachycardic. Abdomen: Focused examination of the abdomen, she was distended, soft, nontender on examination. Dec reased tympany. Well-healed surgical scars were evident. Laboratory Data: She had a laboratory exam, which revealed a white blood cell count of 2.2, hemoglob in is 8.7/hematocrit of 25.0, platelet count was 23. Her neutrophils were 92%. Her sodium was 134, potassium 3.3, chloride 105, carbon dioxide 21, BUN 21, creatinine 0.75, glucose was 237. Her magnes ium was 2.3. Her phosphorus is 0.6. Calcium was 8.4. Her lactic acid was 6.8 on 03/10, is currentl y 3.8, is trending down. Vancomycin trough was 2. She had a CT scan performed of the abdomen and pe lvis on 03/12/2022, which showed stable hepatic metastatic lesions, wall thickening involving the ile um, which is compatible with either noninflammatory mass, transition point, moderately dilated proxim al small bowel, which indicates this is likely causing an obstruction. The right colon was fluid-benedict led the transverse and left colon remarkably decompressed. She had a CT angio chest also performed, which is negative for pulmonary embolus, marked dilatation of the entire esophagus fluid-filled, bridget ed right and minimal left lower lobe opacities, indicating aspiration pneumonia. She had a head CT p erformed on 03/12 as well, officially read as no acute abnormality seen. Assessment And Plan: This is a 51-year-old female who comes in with signs and symptoms of an obstruc tive gastrointestinal process either distal ileum or possibly colonic in origin. 1.IV fluid hydration. 2.Antibiotic coverage. 3.Serial abdominal exams. 4.NG tube decompression. 5.I have recommended nonoperative management of this patient as she has evidence of metastatic colon cancer and as such would not likely benefit from surgical intervention. I have asked the patient's family to discuss her wishes with respect to level of care and interest in surgical intervention. Tico loera, I recommend continued supportive management at this time. Thank you for this interesting consult. STACY/WEI Voice ID: [id number] Report ID: [id number]
[2022-03-13] MEDS: FENTANYL CITR 100 MCG/2 ML IV PRN (00:13)
[2022-03-13] MEDS: CEFEPIME 2 GM in NA CHLORIDE 0.9% 100 ML IV SCH ×3 (00:14→23:53)
[2022-03-13] MEDS: HYDROCORTISONE SUC 100 MG INJ IV SCH ×3 (00:51→16:02)
[2022-03-13] MEDS ORDERED: KCL 20 MEQ/100 mL IVPB 20 MEQ/100 ML BAG IV SCH (01:00)
[2022-03-13] MEDS ORDERED: CLINDAMYCIN INJ 600 MG in NA CHLORIDE 0.9% 50 ML IV SCH (01:00)
[2022-03-13] MEDS: IPRATROPIUM BROM 0.5MG/2.5ML NEB SCH ×4 (01:40→19:45)
[2022-03-13] MEDS: LEVALBUTEROL 1.25 MG/3 ML NEB NEB SCH ×4 (01:40→19:45)
[2022-03-13] MEDS: METRONIDAZOLE 500mg IVPB 500 MG/100 ML BAG IV SCH ×4 (02:06→19:44)
[2022-03-13 05:56] LABS: Protime INR 1.44
[2022-03-13 05:58] LABS: Albumin 1.5 g/dL (3.4-5.0); Alkaline Phosphatase 61 U/L (45-117); BUN Blood Urea Nitrogen 23 mg/dL (7-18); Bicarbonate 21 mmol/L (21-32); Bilirubin Total 1.1 mg/dL (0.2-1.0); Glomerular Filtration Rate > 90 mL/min (=/>90); Glucose Level 216 mg/dL (74-106); Phosphorus 1.5 mg/dL (2.5-4.9); Sodium Level 138 mmol/L (136-145)
[2022-03-13 05:59] LABS: ALT/SGPT < 10 U/L (12-78); AST/SGOT 14 U/L (15-37); Potassium 3.7 mmol/L (3.5-5.1)
[2022-03-13 06:04] LABS: MPV 10.3 fL (7.6-11.3); RBC Red Blood Cell Count 2.13 M/uL (3.86-4.86)
[2022-03-13 06:14] LABS: Hematocrit 20.2 % (36.0-45.0)
[2022-03-13] MEDS: INSULIN -REGULAR HUMAN 50 UNIT/0.5 ML ML SQ SCH ×4 (06:43→18:00)
[2022-03-13] MEDS ORDERED: POTASSIUM PHOS IN 0.9 % NACL 15 MMOL/250 ML BAG IV ONE (07:30)
--- NOTE | 2022-03-13 07:36 | RAD REPORT ---
EXAM DESCRIPTION: RAD - Chest Single View - 03/13/2022 6:36 am CLINICAL HISTORY: pneumonia COMPARISON: Chest Single View dated 03/12/2022; Chest Single View dated 03/09/2022; Chest Single View da issac 03/03/2022; Chest Single View dated 01/24/2022; Chest For Pe Angio dated 03/12/2022 FINDINGS: Lines: NG tube tip overlies the proximal stomach. Port-A-Cath in similar position with tip overlying the superior cavoatrial junction. Lungs: Low lung volumes with right basilar opacities that are similar Pleural: No significant pleural effusions or pneumothorax. Cardiac: The heart size is within normal limits. Bones: No acute fractures. Other: IMPRESSION: Low lung volumes with similar right basilar opacities that could reflect pneumonia.
[2022-03-13 08:03] LABS: Platelet Estimate DECR; Toxic Granulation NOTED
[2022-03-13 08:04] LABS: Anisocytosis 1+; Blood Morphology Comment NOTED (NOT SEEN); Dohle Bodies PRESENT
[2022-03-13] MEDS: PANTOPRAZOLE 40 MG INJ IVP SCH ×2 (08:08→20:15)
[2022-03-13] MEDS: FLUCONAZOLE 400 MG IVPB 400 MG/200 ML BAG IV SCH (10:29)
[2022-03-13] MEDS: VANCOMYCIN 1.5 GM in NA CHLORIDE 0.9% 500 ML IVPB SCH ×2 (10:30→21:47)
--- NOTE | 2022-03-13 11:24 | P.PN ---
Subjective Date of Service: 03/13/22 Chief Complaint: Neutropenia, Abd Pain, N/V/D Subjective: Improving (Patient is more altert, she had several soft BMs, feels much better.) Physical Examination - Vital Signs Temperature: 98.7 F Blood Pressure: 108/72 Pulse: 111 Respirations: 25 Pulse Ox (%): 96 - Physical Exam General: Alert, In no apparent distress, Cooperative Respiratory: Clear to auscultation bilaterally Cardiovascular: Other (tachycardia) Gastrointestinal: Other (soft, mild global TTP, mild distention, improved from prior exam) Neurological: Normal speech - Studies Medications List Reviewed: Yes Assessment And Plan - Current Problems (Diagnosis) (1) Bowel obstruction Current Visit: Yes Status: Acute Plan: - Keep NGT for today - will perform serial exams today and if additional bowel function will consider clamp trial if NGT output is low in AM - continue medical management
[2022-03-13 11:45] LABS: C.diff Antigen/Toxin Ag pos : Tox pos (NEG : NEG)
[2022-03-13] MEDS ORDERED: NA CHLORIDE 0.9% 250 ML ONE (12:48)
--- NOTE | 2022-03-13 16:40 | P.PN ---
Date of Service: 03/13/22 Subjective Patient improved; anemic and will transfuse 2u. Continue with vancomycin po. Review of Systems 10-point ROS is otherwise unremarkable Physical Examination - Vital Signs reviewed - Physical Exam General: Alert, In no apparent distress, Oriented x2; mentation improved Respiratory: Basilar crackles Cardiovascular: Regular rate/rhythm, Normal S1 S2, No murmurs Gastrointestinal: Normal bowel sounds, Soft and benign, Non-distended, abdominal tenderness Musculoskeletal: No clubbing, No swelling, No tenderness Neurological: follows commands and moves all extremities; no focal deficits Assessment & Plan - Problems (Diagnosis) (1) Septic shock Current Visit: Yes Status: Acute (2) SBO (small bowel obstruction) Current Visit: Yes Status: Acute (3) Colon cancer metastasized to liver & brain Current Visit: Yes Status: Chronic (4) Neutropenia Current Visit: Yes Status: Acute (5) Thrombocytopenia Current Visit: Yes Status: Acute (6) Anemia, ABL Current Visit: Yes Status: Acute (7) C. diff colitis Current Visit: Yes Status: Acute - Plan Cont with POC as below: 1. Continue with oral and IV antibiotics 2. Continue with TPN 3. Monitor lactate; still elevated 4. NGT 5. Blood cultures unremarkable 6. Repeat CT scan reviewed; repeat CXR 7. Monitor labs 8. GI DVT prophylaxis Discharge Plan: Home Plan to discharge in: Greater than 2 days - Advance Directives Does patient have a Living Will: No Does patient have a Durable POA for Healthcare: No - Code Status/Comfort Care Code Status Assessed: Yes Code Status: Full Code Critical Care: Yes Time Spent Managing PTS Care (In Minutes): 40
[2022-03-13] MEDS: ONDANSETRON 4 MG/2 ML VIAL IV PRN (16:47)
[2022-03-13] MEDS: MORPHINE 2 MG/ML SYR IV PRN (16:47)
[2022-03-13] MEDS: AA 5%/D20W/ELECTROLYTES-TPN 2,000 ML IV SCH (16:49)
[2022-03-13] MEDS: VANCOMYCIN ORAL SOLN 250 MG/5 ML OSYR PO SCH (16:49)
[2022-03-13] MEDS ORDERED: METRONIDAZOLE 500mg IVPB 500 MG/100 ML BAG IV SCH (20:00)
[2022-03-13 20:21] LABS: Hematocrit 21.9 % (36.0-45.0)
[2022-03-14] MEDS: INSULIN -REGULAR HUMAN 50 UNIT/0.5 ML ML SQ SCH ×4 (00:27→18:00)
[2022-03-14] MEDS: HYDROCORTISONE SUC 100 MG INJ IV SCH ×3 (00:28→18:13)
[2022-03-14] MEDS: VANCOMYCIN ORAL SOLN 250 MG/5 ML OSYR PO SCH ×3 (00:28→17:00)
[2022-03-14] MEDS: MORPHINE 2 MG/ML SYR IV PRN ×3 (00:45→21:08)
[2022-03-14] MEDS: METRONIDAZOLE 500mg IVPB 500 MG/100 ML BAG IV SCH ×4 (01:34→19:40)
[2022-03-14] MEDS: IPRATROPIUM BROM 0.5MG/2.5ML NEB SCH ×4 (01:40→19:50)
[2022-03-14] MEDS: LEVALBUTEROL 1.25 MG/3 ML NEB NEB SCH ×4 (01:40→19:50)
[2022-03-14 04:55] LABS: Absolute Lymphocytes (CBC) 0.4 K/uL (0.7-4.9); Hematocrit 21.5 % (36.0-45.0); Lymphocytes % 6.6 % (15.3-44.8); RBC Red Blood Cell Count 2.29 M/uL (3.86-4.86)
[2022-03-14 05:16] LABS: AST/SGOT 14 U/L (15-37); Albumin 1.5 g/dL (3.4-5.0); Alkaline Phosphatase 70 U/L (45-117); BUN Blood Urea Nitrogen 32 mg/dL (7-18); Bicarbonate 22 mmol/L (21-32); Bilirubin Total 0.7 mg/dL (0.2-1.0); Glomerular Filtration Rate > 90 mL/min (=/>90); Glucose Level 243 mg/dL (74-106); Magnesium 2.1 mg/dL (1.8-2.4); Phosphorus 2.2 mg/dL (2.5-4.9); Potassium 3.4 mmol/L (3.5-5.1); Sodium Level 139 mmol/L (136-145)
[2022-03-14 05:19] LABS: ALT/SGPT < 10 U/L (12-78)
[2022-03-14] MEDS ORDERED: POTASSIUM PHOS IN 0.9 % NACL 15 MMOL/250 ML BAG IV ONE (06:15)
[2022-03-14] MEDS: FLUCONAZOLE 400 MG IVPB 400 MG/200 ML BAG IV SCH (07:50)
[2022-03-14] MEDS: PANTOPRAZOLE 40 MG INJ IVP SCH ×2 (07:50→20:18)
--- NOTE | 2022-03-14 08:28 | RAD REPORT ---
EXAM DESCRIPTION: [facility] Single View03/14/2022 6:43 am CLINICAL HISTORY: Chest pain COMPARISON: March 13 FINDINGS: No significant change in the bibasilar pulmonary opacities right greater than left. Heart is normal size. Central venous line place
[2022-03-14] MEDS ORDERED: KCL 20 MEQ/100 mL IVPB 20 MEQ/100 ML BAG IV SCH (09:30)
[2022-03-14] MEDS ORDERED: NA CHLORIDE 0.9% 100 ML ONE (09:54)
[2022-03-14] MEDS: VANCOMYCIN 1.5 GM in NA CHLORIDE 0.9% 500 ML IVPB SCH ×2 (10:44→22:08)
[2022-03-14] MEDS: CEFEPIME 2 GM in NA CHLORIDE 0.9% 100 ML IV SCH ×2 (11:20→23:15)
--- NOTE | 2022-03-14 12:29 | P.PN ---
Subjective Date of Service: 03/13/22 Chief Complaint: Neutropenia, Abd Pain, N/V/D Subjective: Improving (Patient had several loose BMs, no nausea, emesis, pain improved.) Physical Examination - Vital Signs Temperature: 97.2 F Blood Pressure: 104/67 Pulse: 88 Respirations: 21 Pulse Ox (%): 99 - Physical Exam General: Alert, In no apparent distress, Cooperative HEENT: Other (NGT in place) Respiratory: Clear to auscultation bilaterally, Normal air movement Gastrointestinal: Other (soft, mild TTP, ND, no peritonitis.) - Studies Medications List Reviewed: Yes Assessment And Plan - Current Problems (Diagnosis) (1) Bowel obstruction Current Visit: Yes Status: Acute Plan: - Keep NGT for today - will perform serial exams today and if additional bowel function will consider clamp trial if NGT output is low in AM - continue medical management
--- NOTE | 2022-03-14 12:30 | P.PN ---
Subjective Date of Service: 03/14/22 Chief Complaint: Neutropenia, Abd Pain, N/V/D Subjective: Improving (more bowel movements, pain almost resolved,) Physical Examination - Vital Signs Temperature: 97.2 F Blood Pressure: 104/67 Pulse: 88 Respirations: 21 Pulse Ox (%): 99 - Physical Exam General: Alert, In no apparent distress, Cooperative HEENT: Other (NGT in place) Respiratory: Diminished Gastrointestinal: Soft and benign, No tenderness, No masses, No rebound, No guarding - Studies Medications List Reviewed: Yes Assessment And Plan - Current Problems (Diagnosis) (1) Bowel obstruction Current Visit: Yes Status: Acute Plan: - will perform serial exams today, clamp trial for 6 hours, if tolerated, will DC and start clears - continue medical management
[2022-03-14] MEDS: AA 5%/D20W/ELECTROLYTES-TPN 2,000 ML IV SCH (18:11)
[2022-03-14 19:51] LABS: MPV 9.6 fL (7.6-11.3)
--- NOTE | 2022-03-14 20:05 | P.PN ---
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 She has a history of stage IV colon cancer with metastasis to the liver and brain. Patient has been having chemotherapy. Patient presented to the emergency room with severe anemia and a small bowel obstruction. Patient's work-up revealed C. difficile colitis. Small bowel obstruction has improved. NG tube when initially was placed had 2 L of GI content removed. Patient is clinically doing better and she is moving her bowels although she is having some diarrhea. Overall, patient is doing much better. Hallucinations have resolved as well. Aspiration pneumonia is clearing up. Patient clinical symptoms continue to improve. No more vomiting. Still having some loose stools. Hemodynamics have improved. Off of Levophed for 3 days now. Continue with antibiotic coverage. Awaiting to start physical therapy once NG tube is removed. Patient will also need to start a diet prior to discharge. Review of Systems 10-point ROS is otherwise unremarkable Physical Examination - Vital Signs reviewed - Physical Exam General: Alert, In no apparent distress, Oriented x2; mentation improved HEENT: NGT in place Respiratory: Basilar crackles Cardiovascular: Regular rate/rhythm, Normal S1 S2, No murmurs Gastrointestinal: Normal bowel sounds, Soft and benign, Non-distended, minimal tenderness Musculoskeletal: No clubbing, No swelling, No tenderness Neurological: follows commands and moves all extremities; no focal deficits Assessment & Plan - Problems (Diagnosis) (1) Septic shock Current Visit: Yes Status: Acute (2) SBO (small bowel obstruction) Current Visit: Yes Status: Acute (3) Colon cancer metastasized to liver & brain Current Visit: Yes Status: Chronic (4) Neutropenia Current Visit: Yes Status: Acute (5) Thrombocytopenia Current Visit: Yes Status: Acute (6) Anemia Current Visit: Yes Status: Acute (7) C. diff colitis Current Visit: Yes Status: Acute - Plan Cont with POC as below: 1. Continue with oral and IV antibiotics 2. Continue with TPN 3. Monitor labs 4. NGT; management per general surgery 5. Blood cultures unremarkable 6. Repeat chest x-ray 7. Start physical therapy and plan to clamp NG tube in the morning if okay with surgery 8. GI DVT prophylaxis Discharge Plan: Home Plan to discharge in: Greater than 2 days - Advance Directives Does patient have a Living Will: No Does patient have a Durable POA for Healthcare: No - Code Status/Comfort Care Code Status Assessed: Yes Code Status: Full Code Critical Care: No Time Spent Managing PTS Care (In Minutes): 30
[2022-03-14] MEDS: GUAIFENESIN 600 MG SA TAB PO PRN (20:18)
[2022-03-14] MEDS: KCL 20 MEQ/100 mL IVPB 20 MEQ/100 ML BAG IV SCH ×2 (21:14→22:18)
[2022-03-15] MEDS: VANCOMYCIN ORAL SOLN 250 MG/5 ML OSYR PO SCH ×4 (00:21→20:46)
[2022-03-15] MEDS: KCL 20 MEQ/100 mL IVPB 20 MEQ/100 ML BAG IV SCH ×2 (00:22→22:44)
[2022-03-15] MEDS: INSULIN -REGULAR HUMAN 50 UNIT/0.5 ML ML SQ SCH ×4 (00:46→17:25)
[2022-03-15] MEDS: LEVALBUTEROL 1.25 MG/3 ML NEB NEB SCH ×4 (01:25→20:42)
[2022-03-15] MEDS: IPRATROPIUM BROM 0.5MG/2.5ML NEB SCH ×4 (01:25→20:42)
[2022-03-15] MEDS: HYDROCORTISONE SUC 100 MG INJ IV SCH ×3 (01:48→16:55)
[2022-03-15] MEDS: METRONIDAZOLE 500mg IVPB 500 MG/100 ML BAG IV SCH ×3 (01:49→13:20)
[2022-03-15] MEDS: MORPHINE 2 MG/ML SYR IV PRN ×5 (03:28→20:39)
[2022-03-15 04:52] LABS: Absolute Lymphocytes (CBC) 0.4 K/uL (0.7-4.9); Lymphocytes % 7.9 % (15.3-44.8); MPV 9.3 fL (7.6-11.3); RBC Red Blood Cell Count 2.21 M/uL (3.86-4.86)
[2022-03-15 05:02] LABS: Hematocrit 20.9 % (36.0-45.0)
[2022-03-15 05:13] LABS: ALT/SGPT 13 U/L (12-78); AST/SGOT 10 U/L (15-37); Albumin 1.6 g/dL (3.4-5.0); Alkaline Phosphatase 68 U/L (45-117); BUN Blood Urea Nitrogen 29 mg/dL (7-18); Bicarbonate 22 mmol/L (21-32); Bilirubin Total 0.5 mg/dL (0.2-1.0); Glomerular Filtration Rate > 90 mL/min (=/>90); Glucose Level 278 mg/dL (74-106); Magnesium 1.8 mg/dL (1.8-2.4); NT PRO-BNP 2616 pg/mL (<125); Phosphorus 2.3 mg/dL (2.5-4.9); Potassium 3.1 mmol/L (3.5-5.1); Protein, Total 4.7 g/dL (6.4-8.2); Sodium Level 142 mmol/L (136-145)
[2022-03-15] MEDS ORDERED: POTASSIUM PHOS IN 0.9 % NACL 15 MMOL/250 ML BAG IV ONE (06:00)
[2022-03-15] MEDS: GUAIFENESIN 600 MG SA TAB PO PRN ×2 (08:28→17:05)
[2022-03-15] MEDS: PANTOPRAZOLE 40 MG INJ IVP SCH (08:29)
--- NOTE | 2022-03-15 08:50 | P.PN ---
Subjective Date of Service: 03/15/22 Chief Complaint: Neutropenia, Abd Pain, N/V/D Subjective: No new changes, Improving Physical Examination - Vital Signs Temperature: 97.4 F Blood Pressure: 93/66 Pulse: 70 Respirations: 16 Pulse Ox (%): 98 - Physical Exam General: Alert, Oriented x2 HEENT: Atraumatic, Normocephalic Neck: Supple Respiratory: Normal air movement Cardiovascular: Regular rate/rhythm, Normal S1 S2 Gastrointestinal: Soft and benign Musculoskeletal: No swelling Neurological: Normal speech - Studies Medications List Reviewed: Yes Assessment And Plan - Plan Assessment & Plan - Problems (Diagnosis) (1) Septic shock Current Visit: Yes Status: Acute (2) SBO (small bowel obstruction) Current Visit: Yes Status: Acute (3) Colon cancer metastasized to liver & brain Current Visit: Yes Status: Chronic (4) Neutropenia Current Visit: Yes Status: Acute (5) Thrombocytopenia Current Visit: Yes Status: Acute (6) Anemia Current Visit: Yes Status: Acute (7) C. diff colitis Current Visit: Yes Status: Acute - Plan 1. Continue with oral and IV vanc, cefepime and flagyl. 2. Continue with TPN 3. Monitor labs for repletion as needed. 4. Oral feeds as per surgical service. still has lots of diarrhea. Discharge Plan: Home when clinically stable. Plan to discharge in: Greater than 2 days
[2022-03-15] MEDS ORDERED: NA CHLORIDE 0.9% 500 ML ONE (08:52)
[2022-03-15] MEDS ORDERED: KCL 20 MEQ/100 mL IVPB 20 MEQ/100 ML BAG IV SCH (09:00)
--- NOTE | 2022-03-15 09:01 | P.PN ---
Subjective Date of Service: 03/15/22 Chief Complaint: Neutropenia, Abd Pain, N/V/D Subjective: Improving (multiple BMs, improved pain, tolerated clears c/o anal pain.) Physical Examination - Vital Signs Temperature: 97.4 F Blood Pressure: 93/66 Pulse: 70 Respirations: 16 Pulse Ox (%): 98 - Physical Exam General: Alert, In no apparent distress, Cooperative Respiratory: Clear to auscultation bilaterally Gastrointestinal: Other (soft, mild global TTP only on deep palpation, no rebound, no guarding.) Neurological: Normal speech - Studies Medications List Reviewed: Yes Assessment And Plan - Current Problems (Diagnosis) (1) Bowel obstruction Current Visit: Yes Status: Acute Plan: - will advance to full liquids - anusol for anal hemorroid - continue medical management
[2022-03-15] MEDS: VANCOMYCIN 1.5 GM in NA CHLORIDE 0.9% 500 ML IVPB SCH (09:55)
[2022-03-15] MEDS: FLUCONAZOLE 400 MG IVPB 400 MG/200 ML BAG IV SCH (09:56)
[2022-03-15] MEDS: CEFEPIME 2 GM in NA CHLORIDE 0.9% 100 ML IV SCH (11:28)
[2022-03-15] MEDS ORDERED: NALOXONE 0.4 MG/ML VIAL IV PRN (12:35)
[2022-03-15] MEDS: AA 5%/D20W/ELECTROLYTES-TPN 2,000 ML, Lipids 20% 250 ML with MULTIVITAMINS INJ 10 ML IV SCH ×3 (17:26)
--- NOTE | 2022-03-15 18:17 | P.PN ---
Subjective Date of Service: 03/15/22 Chief Complaint: Neutropenia, Abd Pain, N/V/D Patient seen and examined at bedside, C. diff positive. Review of Systems 10-point ROS is otherwise unremarkable Physical Examination - Vital Signs Temperature: 97.0 F Blood Pressure: 118/78 Pulse: 87 Respirations: 22 Pulse Ox (%): 97 - Studies Laboratory Last Values WBC 0.3 K/uL (4.3-10.9) L* D 03/09/22 23:17 RBC 2.78 M/uL (3.86-4.86) L 03/09/22 23:17 Hgb 8.9 g/dL (12.0-15.0) L 03/09/22 23:17 Hct 26.1 % (36.0-45.0) L 03/09/22 23:17 MCV 93.9 fL (80-100) 03/09/22 23:17 MCH 32.2 pg (27.0-35.0) 03/09/22 23:17 MCHC 34.3 g/dL (32.0-36.0) 03/09/22 23:17 RDW 19.5 % (12.1-15.2) H D 03/09/22 23:17 Plt Count 25 K/uL (152-406) L* D 03/09/22 23:17 MPV 8.9 fL (7.6-11.3) D 03/09/22 23:17 Neutrophils % 8.8 % (41.7-73.7) L 03/09/22 23:17 Lymphocytes % 75.8 % (15.3-44.8) H 03/09/22 23:17 Monocytes % 12.5 % (3.3-12.3) H 03/09/22 23:17 Eosinophils % 2.9 % (0-4.4) 03/09/22 23:17 Basophils % 0.0 % (0-1.3) 03/09/22 23:17 Absolute Neutrophils 0.0 K/uL (1.8-8.0) L 03/09/22 23:17 Segmented Neutrophils 4 % (40-80) L 03/09/22 23:17 Band Neutrophils 2 % (0-1) H 03/09/22 23:17 Absolute Lymphocytes 0.2 K/uL (0.7-4.9) L 03/09/22 23:17 Lymphocytes 81 % (15-42) H 03/09/22 23:17 Monocytes 8 % (0-10) 03/09/22 23:17 Absolute Monocytes 0.0 K/uL (0.1-1.3) L 03/09/22 23:17 Absolute Eosinophils 0.0 K/uL (0-0.5) 03/09/22 23:17 Absolute Basophils 0.0 K/uL (0-0.5) 03/09/22 23:17 Reactive Lymphocytes 5 % 03/09/22 23:17 Platelet Estimate Decr 03/09/22 23:17 Tear Drop Cells 1+ 03/09/22 23:17 Schistocytes Few 03/09/22 23:17 Morphology Comment Noted (NOT SEEN) 03/09/22 23:17 PT 23.3 SECONDS (9.5-12.5) H 03/09/22 23:17 INR 2.09 03/09/22 23:17 Sodium 132 mmol/L (136-145) L 03/09/22 23:17 Potassium 2.8 mmol/L (3.5-5.1) L* 03/09/22 23:17 Chloride 100 mmol/L (98-107) 03/09/22 23:17 Carbon Dioxide 16 mmol/L (21-32) L 03/09/22 23:17 Anion Gap 18.8 mEq/L (5.0-15.0) H 03/09/22 23:17 BUN 21 mg/dL (7-18) H 03/09/22 23:17 Creatinine 1.49 mg/dL (0.55-1.3) H D 03/09/22 23:17 Estimated GFR 37 mL/min (=/>90) L 03/09/22 23:17 Glucose 256 mg/dL (74-106) H 03/09/22 23:17 Lactic Acid 8.2 mmol/L (0.4-2.0) H* 03/09/22 23:17 Calcium 7.6 mg/dL (8.5-10.1) L 03/09/22 23:17 Magnesium 1.1 mg/dL (1.8-2.4) L* D 03/09/22 23:17 Total Bilirubin 0.9 mg/dL (0.2-1.0) 03/09/22 23:17 Direct Bilirubin 0.4 mg/dL (0-0.2) H 03/09/22 23:17 AST 17 U/L (15-37) 03/09/22 23:17 ALT 28 U/L (12-78) 03/09/22 23:17 Alkaline Phosphatase 96 U/L (45-117) 03/09/22 23:17 Troponin I High Sens 19.7 pg/mL (<58.9) 03/09/22 23:17 NT-Pro-B Natriuret Pep 1174 pg/mL (<125) H 03/09/22 23:17 Serum Total Protein 5.7 g/dL (6.4-8.2) L 03/09/22 23:17 Albumin 2.3 g/dL (3.4-5.0) L 03/09/22 23:17 Globulin 3.4 g/dL (2.3-3.5) 03/09/22 23:17 Albumin/Globulin Ratio 0.7 (1.1-1.8) L 03/09/22 23:17 Lipase 11 U/L (73-393) L 03/09/22 23:17 Influenza Type A RNA Negative (NEGATIVE) 03/09/22 23:46 Influenza Type B RNA Negative (NEGATIVE) 03/09/22 23:46 SARS-CoV-2 RNA (RT-PCR) Negative (NEGATIVE) 03/09/22 23:46 ABO/Rh O NEGATIVE 03/09/22 23:17 Solid Phase Ab Screen Negative 03/09/22 23:17 Crossmatch See Detail 03/09/22 23:17 BBK History Checked Cancelled 03/09/22 23:02 Medications List Reviewed: Yes Assessment And Plan - Plan Physical Exam: General: AMS-slight HEENT: Atraumatic Neck: Supple Respiratory: Clear to auscultation bilaterally, Normal air movement Cardiovascular: Regular rate/rhythm Gastrointestinal: Other (Diffuse tenderness, distention) Musculoskeletal: No clubbing, No swelling Integumentary: No rashes, No breakdown, No significant lesion Conclusions/Impression: Antibiotics: oral vancomycin: 03/15-current Vancomycin: Metronidazole: Cefepime: 4current Antifungals: Fluconazole: /5current Assessment/plan Neutropenia in stage IV colon cancer patient resolved, ANC and WBC within normal range. Completed empiric antibiotic coverage with Vancomycin and metronidazole. has one more dose of cefepime. Patient also started on empiric fluconazole. Recommend DC fluconzole. Blood culture showed no growth at 24 hours Blood fungal cultures pending Was receiving new Neupogen, discontinued when ANC was greater than 1000. Oncology team following patient. C . diff -antibiotics DC, one more dose of cefepime left -started on oral vancomycin today, continue for 10 days. Pancytopenia Continue to monitor -has received two units of platelets and one unit of RBCs since admission Plan of care discussed with Dr. Apodaca and pharmacy Thank you for consultation
[2022-03-15] MEDS: FAMOTIDINE 20 MG/2 ML VIAL IV SCH (20:33)
[2022-03-15] MEDS: ZINC OXIDE 20% OINTMENT 60gm TOP SCH (20:44)
[2022-03-15 20:47] LABS: Phosphorus 2.9 mg/dL (2.5-4.9)
[2022-03-15 20:49] LABS: Potassium 2.9 mmol/L (3.5-5.1)
[2022-03-15] MEDS ORDERED: HYDROCORTISONE ACETATE 25MG SUPP PR SCH (21:00)
[2022-03-15] MEDS: HYDROCORTISONE 2.5% RECT CR PR SCH (22:00)
[2022-03-16] MEDS: MORPHINE 2 MG/ML SYR IV PRN ×3 (00:45→11:36)
[2022-03-16] MEDS: KCL 20 MEQ/100 mL IVPB 20 MEQ/100 ML BAG IV SCH ×6 (00:59→21:25)
[2022-03-16] MEDS: INSULIN -REGULAR HUMAN 50 UNIT/0.5 ML ML SQ SCH ×4 (01:07→18:00)
[2022-03-16] MEDS: CEFEPIME 2 GM in NA CHLORIDE 0.9% 100 ML IV SCH (01:07)
[2022-03-16] MEDS: HYDROCORTISONE SUC 100 MG INJ IV SCH ×3 (01:08→18:30)
[2022-03-16] MEDS: FENTANYL CITR 100 MCG/2 ML IV PRN ×3 (02:21→15:20)
[2022-03-16] MEDS: LEVALBUTEROL 1.25 MG/3 ML NEB NEB SCH ×4 (02:49→19:45)
[2022-03-16] MEDS: IPRATROPIUM BROM 0.5MG/2.5ML NEB SCH ×4 (02:49→19:45)
[2022-03-16] MEDS ORDERED: VANCOMYCIN 1.5 GM in NA CHLORIDE 0.9% 500 ML IVPB SCH (05:00)
[2022-03-16 05:10] LABS: Absolute Lymphocytes (CBC) 0.8 K/uL (0.7-4.9); Lymphocytes % 9.7 % (15.3-44.8); MPV 9.8 fL (7.6-11.3); RBC Red Blood Cell Count 2.65 M/uL (3.86-4.86)
[2022-03-16] MEDS: VANCOMYCIN ORAL SOLN 250 MG/5 ML OSYR PO SCH ×4 (09:00→20:55)
[2022-03-16] MEDS: HYDROCORTISONE 2.5% RECT CR PR SCH ×2 (09:00→21:26)
[2022-03-16] MEDS: FLUCONAZOLE 400 MG IVPB 400 MG/200 ML BAG IV SCH (09:00)
[2022-03-16] MEDS: ZINC OXIDE 20% OINTMENT 60gm TOP SCH ×2 (09:00→21:26)
[2022-03-16] MEDS: FAMOTIDINE 20 MG/2 ML VIAL IV SCH ×2 (09:01→20:55)
--- NOTE | 2022-03-16 10:49 | P.PN ---
Subjective Date of Service: 03/16/22 Chief Complaint: Neutropenia, Abd Pain, N/V/D Patient seen and examined at bedside, continues to have severe diarrhea. Electrolyte abnormalities noted on most recent labs. Review of Systems 10-point ROS is otherwise unremarkable Physical Examination - Vital Signs Temperature: 98.9 F Blood Pressure: 121/78 Pulse: 80 Respirations: 17 Pulse Ox (%): 98 - Studies Laboratory Last Values WBC 0.3 K/uL (4.3-10.9) L* D 03/09/22 23:17 RBC 2.78 M/uL (3.86-4.86) L 03/09/22 23:17 Hgb 8.9 g/dL (12.0-15.0) L 03/09/22 23:17 Hct 26.1 % (36.0-45.0) L 03/09/22 23:17 MCV 93.9 fL (80-100) 03/09/22 23:17 MCH 32.2 pg (27.0-35.0) 03/09/22 23:17 MCHC 34.3 g/dL (32.0-36.0) 03/09/22 23:17 RDW 19.5 % (12.1-15.2) H D 03/09/22 23:17 Plt Count 25 K/uL (152-406) L* D 03/09/22 23:17 MPV 8.9 fL (7.6-11.3) D 03/09/22 23:17 Neutrophils % 8.8 % (41.7-73.7) L 03/09/22 23:17 Lymphocytes % 75.8 % (15.3-44.8) H 03/09/22 23:17 Monocytes % 12.5 % (3.3-12.3) H 03/09/22 23:17 Eosinophils % 2.9 % (0-4.4) 03/09/22 23:17 Basophils % 0.0 % (0-1.3) 03/09/22 23:17 Absolute Neutrophils 0.0 K/uL (1.8-8.0) L 03/09/22 23:17 Segmented Neutrophils 4 % (40-80) L 03/09/22 23:17 Band Neutrophils 2 % (0-1) H 03/09/22 23:17 Absolute Lymphocytes 0.2 K/uL (0.7-4.9) L 03/09/22 23:17 Lymphocytes 81 % (15-42) H 03/09/22 23:17 Monocytes 8 % (0-10) 03/09/22 23:17 Absolute Monocytes 0.0 K/uL (0.1-1.3) L 03/09/22 23:17 Absolute Eosinophils 0.0 K/uL (0-0.5) 03/09/22 23:17 Absolute Basophils 0.0 K/uL (0-0.5) 03/09/22 23:17 Reactive Lymphocytes 5 % 03/09/22 23:17 Platelet Estimate Decr 03/09/22 23:17 Tear Drop Cells 1+ 03/09/22 23:17 Schistocytes Few 03/09/22 23:17 Morphology Comment Noted (NOT SEEN) 03/09/22 23:17 PT 23.3 SECONDS (9.5-12.5) H 03/09/22 23:17 INR 2.09 03/09/22 23:17 Sodium 132 mmol/L (136-145) L 03/09/22 23:17 Potassium 2.8 mmol/L (3.5-5.1) L* 03/09/22 23:17 Chloride 100 mmol/L (98-107) 03/09/22 23:17 Carbon Dioxide 16 mmol/L (21-32) L 03/09/22 23:17 Anion Gap 18.8 mEq/L (5.0-15.0) H 03/09/22 23:17 BUN 21 mg/dL (7-18) H 03/09/22 23:17 Creatinine 1.49 mg/dL (0.55-1.3) H D 03/09/22 23:17 Estimated GFR 37 mL/min (=/>90) L 03/09/22 23:17 Glucose 256 mg/dL (74-106) H 03/09/22 23:17 Lactic Acid 8.2 mmol/L (0.4-2.0) H* 03/09/22 23:17 Calcium 7.6 mg/dL (8.5-10.1) L 03/09/22 23:17 Magnesium 1.1 mg/dL (1.8-2.4) L* D 03/09/22 23:17 Total Bilirubin 0.9 mg/dL (0.2-1.0) 03/09/22 23:17 Direct Bilirubin 0.4 mg/dL (0-0.2) H 03/09/22 23:17 AST 17 U/L (15-37) 03/09/22 23:17 ALT 28 U/L (12-78) 03/09/22 23:17 Alkaline Phosphatase 96 U/L (45-117) 03/09/22 23:17 Troponin I High Sens 19.7 pg/mL (<58.9) 03/09/22 23:17 NT-Pro-B Natriuret Pep 1174 pg/mL (<125) H 03/09/22 23:17 Serum Total Protein 5.7 g/dL (6.4-8.2) L 03/09/22 23:17 Albumin 2.3 g/dL (3.4-5.0) L 03/09/22 23:17 Globulin 3.4 g/dL (2.3-3.5) 03/09/22 23:17 Albumin/Globulin Ratio 0.7 (1.1-1.8) L 03/09/22 23:17 Lipase 11 U/L (73-393) L 03/09/22 23:17 Influenza Type A RNA Negative (NEGATIVE) 03/09/22 23:46 Influenza Type B RNA Negative (NEGATIVE) 03/09/22 23:46 SARS-CoV-2 RNA (RT-PCR) Negative (NEGATIVE) 03/09/22 23:46 ABO/Rh O NEGATIVE 03/09/22 23:17 Solid Phase Ab Screen Negative 03/09/22 23:17 Crossmatch See Detail 03/09/22 23:17 BBK History Checked Cancelled 03/09/22 23:02 Medications List Reviewed: Yes Assessment And Plan - Plan Physical Exam: General: Awake alert oriented HEENT: Atraumatic Neck: Supple Respiratory: Clear to auscultation bilaterally, Normal air movement Cardiovascular: Regular rate/rhythm Gastrointestinal: Other (Diffuse tenderness, distention) Musculoskeletal: No clubbing, No swelling Integumentary: No rashes, No breakdown, No significant lesion Conclusions/Impression: Antibiotics: oral vancomycin: 03/15-current Vancomycin: Metronidazole: Cefepime: Antifungals: Fluconazole: 5/5current Assessment/plan Neutropenia in stage IV colon cancer patient resolved, ANC and WBC within normal range. Completed empiric antibiotic coverage with Vancomycin, cefepime, and metronidazole. Patient also started on empiric fluconazole. Recommend DC fluconzole. Blood culture showed no growth at 24 hours Blood fungal cultures pending Was receiving new Neupogen, discontinued when ANC was greater than 1000. Oncology team following patient. C . diff -antibiotics DC. -started on oral vancomycin, continue for 10 days. -Continue fluid and electrolyte replacement as needed Pancytopenia Continue to monitor -has received two units of platelets and one unit of RBCs since admission Plan of care discussed with Dr. Apodaca and pharmacy Thank you for consultation
[2022-03-16] MEDS: ONDANSETRON 4 MG/2 ML VIAL IV PRN ×2 (11:36→15:50)
--- NOTE | 2022-03-16 12:03 | P.PN ---
Subjective Date of Service: 03/16/22 Chief Complaint: Neutropenia, Abd Pain, N/V/D Subjective: No new changes Physical Examination - Vital Signs Temperature: 98.9 F Blood Pressure: 121/78 Pulse: 80 Respirations: 19 Pulse Ox (%): 97 - Physical Exam General: Alert, Mild distress HEENT: Atraumatic, Normocephalic Neck: Supple Respiratory: Normal air movement Cardiovascular: Regular rate/rhythm, Normal S1 S2 Musculoskeletal: No swelling Neurological: Normal speech - Studies Medications List Reviewed: Yes Assessment And Plan - Plan Assessment & Plan - Problems (Diagnosis) (1) Septic shock Current Visit: Yes Status: Acute (2) SBO (small bowel obstruction) Current Visit: Yes Status: Acute (3) Colon cancer metastasized to liver & brain Current Visit: Yes Status: Chronic (4) Neutropenia Current Visit: Yes Status: Acute (5) Thrombocytopenia Current Visit: Yes Status: Acute (6) Anemia Current Visit: Yes Status: Acute (7) C. diff colitis Current Visit: Yes Status: Acute - Plan 1. Continue with oral vanc and complete dose of cefepime today. 2. Continue with TPN. 3. Has low potassium of 2.9 today. we will replete and follow daily labs. 4. Oral feeds as per surgical service. still has lots of diarrhea. lactobacillus dose started for management of C diff diarrhea. 5. Neutropenia resolved. we will follow. Neupogen doses stopped. Discharge Plan: Home when clinically stable. Plan to discharge in: Greater than 2 days
[2022-03-16] MEDS ORDERED: PROMETHAZINE INJ 25 MG/ML AMP IV PRN (16:21)
[2022-03-16] MEDS ORDERED: LORazepam 2 MG/ML VIAL IV ONE ×2 (16:47→20:46)
--- NOTE | 2022-03-16 18:02 | RAD REPORT ---
EXAM DESCRIPTION: CT - Abdomen Pelvis Wo Contrast - 03/16/2022 5:38 pm CLINICAL HISTORY: Abdominal pain. pt with progressive abd distention COMPARISON: Abdomen Pelvis W Contrast dated 03/12/2022 TECHNIQUE: CT imaging of the abdomen and pelvis was performed without contrast. Solid organ, bowel a nd vascular assessment is limited due to lack of IV and oral contrast. All CT scans are performed using dose optimization technique as appropriate and may include automated exposure control or mA/KV adjustment according to patient size. FINDINGS: Linear atelectasis is present in both lower lungs. Low-density hepatic lesions are present of varying size in stable since recent comparative study. Cho lecystectomy clips.The spleen, pancreas, adrenal glands and kidneys are within normal limits. Multiple moderately dilated small bowel loops are present compatible with a moderate grade mechanical small-bowel obstruction. This appears more prominent than on the recent comparative study with trans ition point in the right lower quadrant region suspected. No free air is seen. No abscess. The osseous structures are within normal limits. IMPRESSION: Moderately severe mechanical small-bowel obstruction is present. This appears mildly pro gressive since the comparative study. A limited non-contrast examination was performed as detailed.
[2022-03-16] MEDS ORDERED: PROMETHAZINE INJ 25 MG/ML AMP IV ONE (18:15)
[2022-03-16] MEDS ORDERED: FENTANYL CITR 100 MCG/2 ML IV PRN (18:19)
[2022-03-16] MEDS: AA 5%/D20W/ELECTROLYTES-TPN 2,000 ML IV SCH (18:29)
[2022-03-16] MEDS: LIDOCAINE VISCOUS 2% SOLN 15 ML UDC PO PRN (18:33)
[2022-03-16] MEDS: MORPHINE 4 MG/ML SYR IV PRN (18:57)
[2022-03-16] MEDS: LACTOBACILLUS/ACIDOPHILUS TAB PO SCH (20:55)
[2022-03-17] MEDS: MORPHINE 2 MG/ML SYR IV PRN ×2 (00:25→14:37)
[2022-03-17] MEDS: INSULIN -REGULAR HUMAN 50 UNIT/0.5 ML ML SQ SCH ×4 (00:25→16:45)
[2022-03-17] MEDS: HYDROCORTISONE SUC 100 MG INJ IV SCH ×3 (00:41→17:39)
[2022-03-17] MEDS: KCL 20 MEQ/100 mL IVPB 20 MEQ/100 ML BAG IV SCH ×2 (01:29)
[2022-03-17] MEDS: IPRATROPIUM BROM 0.5MG/2.5ML NEB SCH ×4 (02:00→19:57)
[2022-03-17] MEDS: LEVALBUTEROL 1.25 MG/3 ML NEB NEB SCH ×4 (02:00→19:57)
[2022-03-17] MEDS: MORPHINE 4 MG/ML SYR IV PRN ×3 (03:41→20:52)
[2022-03-17 05:01] LABS: Absolute Lymphocytes (CBC) 0.8 K/uL (0.7-4.9); Hematocrit 25.9 % (36.0-45.0); Lymphocytes % 10.9 % (15.3-44.8); MPV 9.7 fL (7.6-11.3); RBC Red Blood Cell Count 2.76 M/uL (3.86-4.86)
[2022-03-17 05:18] LABS: Magnesium 1.6 mg/dL (1.8-2.4); Phosphorus 3.1 mg/dL (2.5-4.9); Potassium 3.9 mmol/L (3.5-5.1)
[2022-03-17 05:32] LABS: Blood Morphology Comment NOTED (NOT SEEN); Platelet Estimate DECR; Polychromasia SLIGHT
[2022-03-17 06:04] VITALS: O2SAT 98
[2022-03-17] MEDS ORDERED: KCL 20 MEQ/100 mL IVPB 20 MEQ/100 ML BAG IV SCH (07:00)
[2022-03-17] MEDS ORDERED: MAGNESIUM SULFATE 1 gm IVPB 1 GM/100 ML BAG IV ONE (07:00)
[2022-03-17 07:43] VITALS: BMI 30.9
[2022-03-17] MEDS: FAMOTIDINE 20 MG/2 ML VIAL IV SCH ×2 (08:23→21:00)
[2022-03-17] MEDS: LACTOBACILLUS/ACIDOPHILUS TAB PO SCH ×2 (08:23→21:00)
[2022-03-17] MEDS: VANCOMYCIN ORAL SOLN 250 MG/5 ML OSYR PO SCH ×3 (08:25→11:45)
[2022-03-17] MEDS: HYDROCORTISONE 2.5% RECT CR PR SCH ×2 (08:25→22:31)
[2022-03-17] MEDS: ZINC OXIDE 20% OINTMENT 60gm TOP SCH ×2 (08:26→23:33)
[2022-03-17] MEDS ORDERED: METRONIDAZOLE 500mg IVPB 500 MG/100 ML BAG IV SCH (12:00)
--- NOTE | 2022-03-17 14:05 | RAD REPORT ---
EXAM DESCRIPTION: Abdomen 1 View (KUB) 03/17/2022 1:46 AM CDT CLINICAL HISTORY: 51 years, Female, NG Tube COMPARISON: None. FINDINGS: 1 X-ray view of the abdomen (supine) was performed. There is a nasogastric tube in place t ip within the antrum of the stomach. There are not dilated small bowel loops. Minimal amount of air w ithin the left site colon. Visualized bony structures demonstrate minimal degenerative changes lower lumbar spine and bilateral hip joints. IMPRESSION: Nasogastric tube in good position. Electronically signed by: Josué Elise MD 03/17/2022 1:47 AM CDT Due to temporary technical issues with the PACS/Fluency reporting system, reports are being signed by the in house radiologist without review as a courtesy to ensure prompt reporting. The interpreting r adiologist is fully responsible for the content of the report.
[2022-03-17] MEDS: FIDAXOMICIN 200 MG TABLET PO SCH ×2 (16:43→21:00)
--- NOTE | 2022-03-17 17:03 | P.PN ---
Subjective Date of Service: 03/17/22 Chief Complaint: Neutropenia, Abd Pain, N/V/D Subjective: New changes, Worsening Physical Examination - Vital Signs Temperature: 97.5 F Blood Pressure: 120/87 Pulse: 73 Respirations: 16 Pulse Ox (%): 96 - Physical Exam General: Alert HEENT: Atraumatic, Normocephalic Neck: Supple Respiratory: Normal air movement Cardiovascular: Regular rate/rhythm, Normal S1 S2 Gastrointestinal: Distended Musculoskeletal: No swelling Neurological: Normal speech - Studies Medications List Reviewed: Yes Assessment And Plan - Plan Assessment & Plan - Problems (Diagnosis) (1) Septic shock Current Visit: Yes Status: Acute (2) SBO (small bowel obstruction) Current Visit: Yes Status: Acute (3) Colon cancer metastasized to liver & brain Current Visit: Yes Status: Chronic (4) Neutropenia Current Visit: Yes Status: Acute (5) Thrombocytopenia Current Visit: Yes Status: Acute (6) Anemia Current Visit: Yes Status: Acute (7) C. diff colitis Current Visit: Yes Status: Acute Plan: Repeat imaging showed bowel obstruction and patient is NPO. NG was placed to wall suction. Continue conservative management of small bowel obstruction. Continue IV fluids for hydration. Flagyl restarted for management of C. difficile colitis with oral Vanco. Will continue routine surveillance of gastro-intestinal pathology as per surgical services. Will monitor electrolyte profile on daily basis. Discharge Plan: Home when clinically stable.
[2022-03-17] MEDS: AA 5%/D20W/ELECTROLYTES-TPN 2,000 ML, Lipids 20% 250 ML with MULTIVITAMINS INJ 10 ML IV SCH ×3 (17:39)
[2022-03-17] MEDS: LIDOCAINE VISCOUS 2% SOLN 15 ML UDC PO PRN (23:33)
--- NOTE | 2022-03-18 01:39 | PN ---
Subjective: The patient is lying in bed. Diarrhea has subsided quite a bit, but continued to still have watery bowel movement. Objective: Vital Signs: Temperature 97.5, pulse 90, respirations 18, blood pressure 107/78. Lungs: Basal crackles. Heart: S1, S2. Regular. Abdomen: Mildly distended. Bowel sounds present. Extremities: Hyperactive extremity. No edema. Laboratory Data: Shows WBC 7.6, hemoglobin 8.9, platelets 64. Chemistry shows sodium 143, potassium 3.9, chloride 115, bicarb 21, BUN 24, creatinine 0.38, glucose is 227. Blood cultures are negative since 03/10 and 03/11. The patient with history of colon cancer. Neutropenia has improved. Anemia of chronic disease and t hrombocytopenia. C diff colitis. The patient recommended to stop vancomycin and Flagyl, and start t he patient on Dificid 200 mg twice a day for 10 days. Continue supportive care and hydration. We wi ll follow the patient closely. Monitor for signs of infection with WBC and fever trends. NF/MODL Voice ID: [id number] Report ID: [id number]
[2022-03-18] MEDS: HYDROCORTISONE SUC 100 MG INJ IV SCH ×3 (01:40→18:03)
[2022-03-18] MEDS: LEVALBUTEROL 1.25 MG/3 ML NEB NEB SCH ×2 (02:10→08:00)
[2022-03-18] MEDS: IPRATROPIUM BROM 0.5MG/2.5ML NEB SCH ×2 (02:10→08:00)
[2022-03-18] MEDS: MORPHINE 4 MG/ML SYR IV PRN ×6 (02:11→22:33)
[2022-03-18 04:54] LABS: Absolute Lymphocytes (CBC) 0.8 K/uL (0.7-4.9); Hematocrit 25.5 % (36.0-45.0); Lymphocytes % 13.1 % (15.3-44.8); MPV 9.4 fL (7.6-11.3); RBC Red Blood Cell Count 2.72 M/uL (3.86-4.86)
[2022-03-18 05:09] LABS: Potassium 3.4 mmol/L (3.5-5.1)
[2022-03-18] MEDS: INSULIN -REGULAR HUMAN 50 UNIT/0.5 ML ML SQ SCH ×4 (06:20→18:00)
[2022-03-18 07:53] LABS: Magnesium 1.7 mg/dL (1.8-2.4); Phosphorus 3.1 mg/dL (2.5-4.9)
[2022-03-18] MEDS: HYDROCORTISONE 2.5% RECT CR PR SCH ×2 (07:59→20:09)
[2022-03-18] MEDS: LACTOBACILLUS/ACIDOPHILUS TAB PO SCH ×2 (07:59→20:09)
[2022-03-18] MEDS: ZINC OXIDE 20% OINTMENT 60gm TOP SCH ×2 (07:59→20:09)
[2022-03-18] MEDS: ONDANSETRON 4 MG/2 ML VIAL IV PRN (07:59)
[2022-03-18] MEDS: FAMOTIDINE 20 MG/2 ML VIAL IV SCH ×2 (07:59→20:07)
[2022-03-18] MEDS: FIDAXOMICIN 200 MG TABLET PO SCH ×2 (08:12→20:07)
[2022-03-18] MEDS: GUAIFENESIN 600 MG SA TAB PO PRN (08:12)
[2022-03-18] MEDS ORDERED: IPRATROPIUM BROM 0.5MG/2.5ML NEB PRN (08:37)
[2022-03-18] MEDS ORDERED: MAGIC MOUTHWASH 180 ML BTL PO PRN (08:37)
[2022-03-18] MEDS ORDERED: LEVALBUTEROL 1.25 MG/3 ML NEB NEB PRN (08:37)
[2022-03-18] MEDS ORDERED: MAGNESIUM SULFATE 1 gm IVPB 1 GM/100 ML BAG IV ONE (08:38)
[2022-03-18] MEDS ORDERED: POTASSIUM CL 40 MEQ in NA CHLORIDE 0.9% 500 ML IV SCH (10:00)
[2022-03-18] MEDS: LIDOCAINE VISCOUS 2% SOLN 15 ML UDC PO PRN ×2 (10:37→22:07)
--- NOTE | 2022-03-18 13:18 | P.PN ---
Date of Service: 03/18/22 S: Patient feels slightly better today, still complaining of some pain in her mouth. Pain medicine is working for her. O: Abdomen is still less distended, still output from the nasogastric tube. Apparently had 3-4 bowel movements yesterday. A: This patient, while mildly clinically improved, has not made much progress over the last 2 weeks. My fear is that with the nasogastric tube she is being emptied and then when it is discontinued just refilled again. She will most likely require low anterior resection as the ideal operation. Variations of this, including stent colostomy etc. may be required. She has been on chemotherapy, did have C. difficile enteritis, in addition to some malnutrition. The complexity of this case, challenges the abilities of our facility to take care of this patient. I have discussed that with her oncologist, and I have recommend the patient be transferred to a facility with higher level of care. There they can provide GI care, surgical, as well as oncology. She agrees. P: Transfer the patient to a higher level of care has been initiated. I have discussed this with the patient. She understands and agrees.
[2022-03-18] MEDS: MORPHINE 2 MG/ML SYR IV PRN (14:39)
--- NOTE | 2022-03-18 16:13 | P.DS ---
Admission Date: 03/10/22 Discharge Date: 03/18/22 Disposition: TRANSFER TO [facility] Discharge Condition: SERIOUS Reason for Admission: Neutropenia, Abd Pain, N/V/D Brief History of Present Illness: Patient is a 51 y/o F with stage 4 colon cancer with metastasis to liver and brain on chemotherapy who presented to the ED via EMS with episodes of n/v/d, abdominal pain, and syncope. She was found to be severely hypotensive, anemic, neutropenic, thrombocytopenic, hypokalemic, hypomagnesmic. Given several liters of fluid, PRBCs, FFP, and started on levophed drip. Started on triple antibiotic coverage for septic shock and given neupogen. Will admit patient to the ICU for further management. Hospital Course: Was admitted to ICU level of care with severe thrombocytopenia and anemia and severe neutropenia. Empiric antibiotic was started for management of sepsis and Neupogen was started for neutropenia. He was medically treated for neutropenic fever in the setting of use of chemotherapy. She recovered significantly with weaned off of vasopressor support and white cell improved into the normal range. Neutropenic precautions were discontinued and patient was continued on routine care for suspected sepsis. Blood cultures drawn on admission showed no growth in 5 days. She also had small bowel obstruction for which she was decompressed with NG tube suction and this resolved. By the third day of admission she developed diarrhea and C. difficile test came out positive and she was started on oral vancomycin and IV Flagyl for management. She had severe bouts of diarrhea and 3 days after initial diagnosis of C. difficile diarrhea she had another episode of distended abdomen that prompted repeat imaging that revealed recurrence of small bowel obstruction. Surgical service was on board on and so was oncology service. After further review of patient's overall condition there was concern for significant abdominal pathology and patient was asked to be transferred to higher level of care at [facility] for colorectal surgeon evaluation for possible anterior lower bad resection and also for continued of care for metastatic colon cancer. She was started on fidaxomicin by ID specialist for C. difficile management earlier today. In the last 24 suction from NG tube for small bowel obstruction relief has been minimal. Labs are within acceptable limits with mild hypokalemia and hypomagnesemia which are being replete. She is transferred in stable condition with stable vitals to [facility] for higher level of care. Vital Signs/Physical Exam: Temp Pulse Resp BP Pulse Ox 98.3 F 65 18 118/72 98 03/18/22 12:00 03/18/22 15:00 03/18/22 15:09 03/18/22 14:00 03/18/22 15:09 General: Alert, Oriented x3 HEENT: Atraumatic, Normocephalic Neck: Supple Respiratory: Normal air movement Cardiovascular: Regular rate/rhythm, Normal S1 S2 Gastrointestinal: Hypoactive Musculoskeletal: No swelling Neurological: Normal speech, Normal strength at 5/5 x4 extr Laboratory Data at Discharge: WBC 6.2 K/uL (4.3-10.9) D 03/18/22 04:32 Hgb 8.6 g/dL (12.0-15.0) L 03/18/22 04:32 Hct 25.5 % (36.0-45.0) L 03/18/22 04:32 Plt Count 82 K/uL (152-406) L* D 03/18/22 04:32 PT 16.0 SECONDS (9.5-12.5) H 03/13/22 05:18 INR 1.44 03/13/22 05:18 APTT 28.3 SECONDS (24.3-36.9) 03/13/22 05:18 Sodium 141 mmol/L (136-145) 03/18/22 04:32 Potassium Cancelled 03/18/22 23:00 BUN 21 mg/dL (7-18) H 03/18/22 04:32 Creatinine 0.38 mg/dL (0.55-1.3) L 03/18/22 04:32 Glucose 227 mg/dL (74-106) H 03/18/22 04:32 Phosphorus 3.1 mg/dL (2.5-4.9) 03/18/22 04:32 Magnesium 1.7 mg/dL (1.8-2.4) L 03/18/22 04:32 Total Bilirubin Cancelled 03/15/22 06:00 AST Cancelled 03/15/22 06:00 ALT Cancelled 03/15/22 06:00 Alkaline Phosphatase Cancelled 03/15/22 06:00 Triglycerides 89 mg/dL (<150) 03/10/22 07:04 Cholesterol 72 mg/dL (<200) 03/10/22 07:04 LDL Cholesterol Direct 12 mg/dL (100-129) L 03/10/22 07:04 HDL Cholesterol 55 mg/dL (40-60) 03/10/22 07:04 Cholesterol/HDL Ratio 1.31 03/10/22 07:04 Lipase 11 U/L (73-393) L 03/09/22 23:17 Home Medications: Apixaban [Eliquis] 1 tab PO BID 01/24/22 Gabapentin 300 tab PO TID 01/24/22 Hydrocodone 5/APAP 325 [[place] 5/325*] 1 tab PO Q4H 01/24/22 Hyoscyamine Sulfate [Levsin TAB*] 0.125 mg PO Q6H 03/04/22 Prochlorperazine Maleate 10 mg PO Q6H PRN 03/04/22 dexAMETHasone [Dexamethasone] 4 mg PO BID 03/04/22 Cholestyramine/Asp [Questran Light] 4 gm PO DAILY 30 Days #30 packet 03/05/22 Potassium Oral Tab [Klor-Con 10 mEq Tab*] 2 tab PO DAILY 7 Days #14 tab 03/05/22 Activity: Bedrest Followup: Unknown,U [Primary Care Provider] -
[2022-03-18] MEDS ORDERED: CHOLESTYRAMINE/ASP 4 GM/PKT PO SCH (17:00)
[2022-03-18] MEDS: NYSTATIN 500,000 UNIT/5 ML UDC PO SCH ×3 (18:02→20:20)
[2022-03-18] MEDS: AA 5%/D20W/ELECTROLYTES-TPN 2,000 ML IV SCH (18:03)
[2022-03-18 20:25] VITALS: TEMP 98
[2022-03-18 22:21] VITALS: BP 124/75
--- NOTE | 2022-03-22 12:33 | PN ---
Subjective: The patient is lying in bed, feels much better today. Still having burning and discomfo rt in her mouth. No fever. As per staff, her diarrhea has slowed down significantly and had only 1 bowel movement since morning. The patient has been tolerating deficit without any problem. Objective: Vital Signs: Temperature 98, pulse 66, respirations 13, blood pressure 117/77. Lungs: Basal crackles. Heart: S1, S2. Regular. Abdomen: Soft, nontender. Bowel sounds present. Extremities: No edema. HEENT: No signs of thrush noted in the mouth. Laboratory Data: Labs show WBC 6.2, hemoglobin 8.6, platelets are 82. Chemistry shows sodium 141, p otassium 3.4, chloride 109, bicarb 24, BUN 21, creatinine 0.3, glucose 227. Assessment And Plan: Clostridium difficile colitis in a patient with colon cancer and metastasis. W e will recommend to also add cholestyramine and monitor the patient for signs of infection with fever and WBC trends. Continue IV hydration. We will follow the patient closely. NF/MODL Voice ID: [id number] Report ID: [id number]
== END 2022-03-18 23:03 | disposition short-term general hospital (02) | DRG 808 ==
LOC: ER 22:31 → ERHOLD 03-10 04:41 → 3RD-ICU 03-10 05:37
PROVIDERS: ADMIT Hospitalist; ATTEND Internal Medicine Nephrology
PROC: 02HV33Z Insertion of Infusion Device into Superior Vena Cava, Percutaneous Approach (ICD-10-PCS; principal; 2022-03-10)
PROC: 3E04329 Introduction of Other Anti-infective into Central Vein, Percutaneous Approach (ICD-10-PCS; 2022-03-10)
PROC: 3E043XZ Introduction of Vasopressor into Central Vein, Percutaneous Approach (ICD-10-PCS; 2022-03-10)
PROC: 30233R1 Transfusion of Nonautologous Platelets into Peripheral Vein, Percutaneous Approach (ICD-10-PCS; 2022-03-10)
PROC: 30233N1 Transfusion of Nonautologous Red Blood Cells into Peripheral Vein, Percutaneous Approach (ICD-10-PCS; 2022-03-13)
PROC: 30233R1 Transfusion of Nonautologous Platelets into Peripheral Vein, Percutaneous Approach (ICD-10-PCS; 2022-03-14)
PROC: 30233N1 Transfusion of Nonautologous Red Blood Cells into Peripheral Vein, Percutaneous Approach (ICD-10-PCS; 2022-03-15)
DX: D61.810 Antineoplastic chemotherapy induced pancytopenia (principal); A41.9 Sepsis, unspecified organism; R65.21 Severe sepsis with septic shock; R57.1 Hypovolemic shock; G92.8 Other toxic encephalopathy; J69.0 Pneumonitis due to inhalation of food and vomit; C18.9 Malignant neoplasm of colon, unspecified; C79.31 Secondary malignant neoplasm of brain; C78.7 Secondary malignant neoplasm of liver and intrahepatic bile duct; A04.72 Enterocolitis due to Clostridium difficile, not specified as recurrent; E44.0 Moderate protein-calorie malnutrition; K56.600 Partial intestinal obstruction, unspecified as to cause; D70.9 Neutropenia, unspecified; D62 Acute posthemorrhagic anemia; T45.1X5A Adverse effect of antineoplastic and immunosuppressive drugs, initial encounter; D64.81 Anemia due to antineoplastic chemotherapy; D69.59 Other secondary thrombocytopenia; R50.81 Fever presenting with conditions classified elsewhere; D63.8 Anemia in other chronic diseases classified elsewhere; E87.6 Hypokalemia; E83.42 Hypomagnesemia; E78.5 Hyperlipidemia, unspecified; R00.0 Tachycardia, unspecified; E86.1 Hypovolemia; F17.200 Nicotine dependence, unspecified, uncomplicated; Z68.31 Body mass index [BMI] 31.0-31.9, adult; Z98.84 Bariatric surgery status; Z20.822 Contact with and (suspected) exposure to COVID-19
CPT/HCPCS: 0240U; 36415; 36430; 70450; 71045; 71275; 74018; 74176; 74177; 80048; 80053; 80061; 80076; 80202; 81003; 82140; 82947; 83605; 83690; 83735; 83880; 84100; 84132; 84145; 84484; 85014; 85018; 85025; 85049; 85384; 85610; 85730; 86850; 86900; 86901; 86922; 87040; 87324; 87449; 93005; 93306; 94640; 96372; 97162; 97530; 99291; 99292; C9113; J0692; J1447; J1450; J1720; J1815; J2270; J2405; J2550; J3010; J3370; J3475; J3480; J3490; J7030; J7040; J7042; J7050; J7060; J8499; P9016; P9035; P9047; P9100; Q9967; U0003

== ENCOUNTER 2022-03-24 09:42 | Inpatient (IN) | payer BC ==
--- NOTE | 2022-03-24 15:40 | R.PREADM ---
PRE-ADMISSION SCREENING FORM SCREENING DATE AND TIME 03/24/2022 10:16 (CDT) ANTICIPATED REHAB ADMISSION DATE 03/26/2022 REFERRING FACILITY [facility] REFERRAL DATE AND TIME 03/24/2022 10:16 (CDT) ACUTE ADMIT DATE 03/19/2022 Previous Rehabilitation(s): No. 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 Clint Sandoval M.D. MR# [id number] NAME OMERO ESPANA ADDRESS [address] [facility] PH[address] [facility] [id number] DATE OF 1970 AGE 51 SSN# [id number] GENDER female MARITAL STATUS Single (Never ) RACE white ADMIT FROM 02 - [facility] PRE-HOSPITAL LIVING SETTING 01 - Home (private home/apt. board/care, assisted living, half-way, transitional living) HOME TYPE AND DETAILS Type of home: single family house # of levels in the residence: 1 # of steps within the residence: 0 # of steps to enter the residence: 2 PRE-HOSPITAL LIVING WITH Family/Relatives FAMILY SUPPORT Yes PRIMARY FAMILY CONTACT NAME Georgiana Glaser PRIMARY FAMILY CONTACT PHONE PRIMARY FAMILY CONTACT RELATIONSHIP Sister PHONE PRIMARY FAMILY CONTACT ON ADM.? no IS PRIMARY FAMILY CONTACT AUTH. REP.? no 1ST EMERGENCY CONTACT Georgiana Glaser 1ST CONTACT PHONE 1ST CONTACT RELATIONSHIP Sister PHONE 1ST CONTACT ON ADM. no IS 1ST CONTACT AUTH. REP.? no PHONE 2ND CONTACT ON ADM.? 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 No ANOTHER REPUBLICAN RESPONSIBLE? No PRIMARY REHAB/ACUTE DIAGNOSIS: C20 Malignant Neoplasm of Rectum ONSET DATE 03/19/2022 REHAB IMPAIRMENT CATEGORY (CATARINA): 20 Miscellaneous (Misc) does NOT meet 60% rule PRIMARY DIAGNOSIS-RELATED SURGERIES: None COMORBID REHAB/ACUTE DIAGNOSES: - Tier 2 Enterocolitis due to Clostridium difficile (A04.7) INTERVENTIONS: - Pain Monitor and treat with prescribed pain medications Non pharmacological pain management Monitor for headaches - Deep Vein Thrombosis Positioning and Exercise Administer medications and monitor for effectiveness Comfort measures: compression stocking , warm compress LE Elevation Maintain pt PICC line - Malnutrition Continue TPN until diet is advanced - Neuropathy Administer medications and monitor for effectiveness Safety Education - C Diff Isolation precautions Administer IV medications and monitor for effectivness Monitor GI symptoms RISK FOR COMPLICATIONS: - Aspiration Monitor for overt s/s of aspiration - DVT Active and Passive ROM exercises Assist patient with frequent position changes Elevate BLE - Skin Breakdown Encourage ambulation as tolerated Repositioning q 2 hours Use of pillows or foam wedges while in bed - Pain Anticipate the need for pain medication for optimal pain managment Assist patient with frequent position changes at least every 2 hours Administer prescribed pain medication as needed Education patient on relaxation and deep breathing techniques - Stroke Monitor and maintain patient pain level Monitor patient blood pressure - Falls Assess for medication side effects Maintain call light within patient reach for easy access to nursing assistance Provide assistance getting out of bed and with ambulation Provide assistive devices SUMMARY OF ACUTE HOSPITALIZATION: Pt. is a 51 yo white female. On 03/19/2022 she was admitted to [facility] with diagnosis C20 Malignant Neoplasm of Rectum. Her impairment category is Medically Complex Conditions 17 - Neoplasms (17.2). Pre-morbidly, Pt. was independent/mod-I in Locomotion, Balance, and Self-Care; and she had good Safet y Awareness, Endurance, Sphincter Control, Transfers Control, and Balance. Currently, she has deficits of Locomotion, Safety Awareness, Balance, Transfers Control, Sphincter Co ntrol, Endurance, and Self-Care. Pt. is now referred to [facility] for acute in-patient rehabilitation in order to maximize patient's functional independence in activities of daily living, strength, ROM, and mobi lity. Patient has realistic goal of being discharged at assistance level 6-Margarito to reside at Home with Fam hannah/Relatives. PAST MEDICAL HISTORY Enterocolitis due to Clostridium difficile (A04.7) Obseity Sleep Apnea Type 2 Diabetes Hypertension DVT Stage 4 Rectal Cancer PAST SURGICAL HISTORY: Gastric Sleeve Left Sided Port Appendectomy C Section Cholecystectomy MEDICATION ALLERGIES: No Known Drug Allergies (NKDA) ENVIRONMENTAL ALLERGIES: - Substance Allergies None Known - Other Allergies None Known CODE STATUS: Full code WEIGHT/HEIGHT/BMI: WEIGHT 160 lbs HEIGHT 5' 6" BMI 25.8 DIET: - Diet Type Regular - Diet - Solid Texture Regular - Diet - Liquid Texture Regular - Tube Feed N/A SKIN DIAGRAM: Spasm Abdomen pain; level - 3. PICC Line on Right arm; extent - small; stage - NS(Not Stageable). Treatment - Per Physician's Orders . Port on Chest; extent - small; stage - NS(Not Stageable). Treatment - Per Physician's Orders. REVIEW OF SYSTEMS: - Gen Alert and awake Lying in bed No apparent distress Oriented to: person, time, and place - Vital Signs Temperature: 98.5 F SBP/DBP: 97/55 Pulse: 108 Resp: 17 Vital signs stable, afebrile 03/22/2022 - CVS RRR VITAL SIGNS Temperature: 98.5 F SBP/DBP: 97/55 Pulse: 108 Resp: 17 Vital signs stable, afebrile Date 03/22/2022 MEDICATIONS/TREATMENT: Other- See attached MAR (Medication Administration Record). CURRENT SPHINCTER CONTROL: Pre-hospital bladder status: unspecified # of bladder accidents in the last 7 days prior to screenin Pre-hospital bowel status: unspecified # of bowel accidents in the last 7 days prior to screenin Last Bowel Movement Date: 03/24/2022 CURRENT LOCOMOTION STATUS: distance walked 0 feet DETAILED CURRENT FUNCTIONAL STATUS: - Bladder accident frequency: 7-Ind - No accidents in the past 7 days - Bowel accident frequency: 7-Ind - No accidents in the past 7 days - Walking score based on distance walked: 0(N/A) - Wheelchair score based on distance traveled: 0(N/A) QI SCORES: - Self-Care A. Eating 04-Supervision or touching assistance B. Oral hygiene 04-Supervision or touching assistance C. Toileting hygiene 04-Supervision or touching assistance E. Shower/bathe self 04-Supervision or touching assistance F. Upper body dressing 04-Supervision or touching assistance G. Lower body dressing 04-Supervision or touching assistance H. Putting on/taking off footwear 04-Supervision or touching assistance - Mobility A. Roll left and right 88-Not attempted due to medical condition or safety concerns B. Sit to lying 04-Supervision or touching assistance C. Lying to sitting on side of bed 03-Partial/moderate assistance D. Sit to stand 03-Partial/moderate assistance E. Chair/[id number]-[id number] transfer 03-Partial/moderate assistance F. Toilet transfer 03-Partial/moderate assistance G. Car transfer 03-Partial/moderate assistance I. Walk 10 feet 88-Not attempted due to medical condition or safety concerns J. Walk 50 feet with two turns 88-Not attempted due to medical condition or safety concerns K. Walk 150 feet 88-Not attempted due to medical condition or safety concerns L. Walking 10 feet on uneven surfaces 88-Not attempted due to medical condition or safety concerns M. 1 step (curb) 88-Not attempted due to medical condition or safety concerns N. 4 steps 88-Not attempted due to medical condition or safety concerns O. 12 steps 88-Not attempted due to medical condition or safety concerns P. Picking up object 88-Not attempted due to medical condition or safety concerns R. Wheel 50 feet with two turns 88-Not attempted due to medical condition or safety concerns S. Wheel 150 feet 88-Not attempted due to medical condition or safety concerns - Bladder and Bowel Bladder continence 3-Incontinent daily Bowel continence 2-Frequently incontinent - Endurance Poor - Balance Poor - Safety Awareness Fair CURRENT FUNC. DEFICITS: Self-Care, Endurance, Balance, Safety Awareness, and Mobility CURRENT / PREVIOUS ASSISTIVE DEVICES: Straight Cane Wheelchair CURRENT USE ASSISTIVE DEVICES: CPAP HISTORY OF FALLS. HAS THE PATIENT HAD TWO OR MORE FALLS IN THE PAST YEAR OR ANY FALL WITH INJURY IN T HE PAST YEAR?: No PRIOR SURGERY. DID THE PATIENT HAVE MAJOR SURGERY DURING THE 100 DAYS PRIOR TO ADMISSION?: No THERAPY NOTES FROM ACUTE CARE: [id number] hed. SPECIAL NEEDS: - Safety Concerns Skin breakdown, Isolation, Aspiration, and Fall precautions needed due to skin breakdown risk, Poor b alance, Risk of injury, High fall risk, and Infection transmission risk - IV PICC line inserted on unknown TPN started on unknown IVF inserted on unknown - Aspiration Concerns Precautions needed due avoid aspiration related infections - Respiratory Cpap PRECAUTIONS: - Fall Precaution Bed alarm TABS alarm Wheel chair alarm - Aspiration Precaution HOB (head of bed) elevated above 30 degrees while receiving tube feed No straws - DVT Risk due to restricted mobility and age - Bleeding Risk Eliquis - Isolation Precaution Contact precaution - Incontinence Bladder Incontinence Bowel Incontinence - Skin Breakdown Risk due to restricted mobility and age PATIENT NEEDS ACTIVE AND ONGOING THERAPEUTIC INTERVENTION OF MULTIPLE THERAPY DISCIPLINES, INCLUDING: - Dietary and Nutrition Adequate Nutrition. Nutritional Education. Nutritional Supplements. - Occupational Therapy Cognitive Retraining. Patient needs Occupational Therapy for a daily minimum of 1.5 hours at least 5 out of 7 days, to improve Activities of Daily Living, including: Eating, Grooming, Bathing, Dressing, Toileting, Toilet Transfers, Community Reintegration, Higher functional activities, Adaptive Equipme nt, Splinting, Household Tasks, and Other activities as determined. Visual Perceptual Training. - Speech Therapy Cognitive Training. Expressive Language Skills. Memory Strategies. Patient needs Speech Therapy for a daily minimum of 1.5 hours at least 5 out of 7 days, to improve: Swallowing, Cognition, Language Ski lls, and Compensatory Strategies. Receptive Language Skills. Speech Intelligibility Training. - Physical Therapy Patient needs Physical Therapy for a daily minimum of 1.5 hours at least 5 out of 7 days, to improve: Mobility, Strengthening, Transfers, Stretching, ROM, Endurance, Ability to manage stairs, Gait, and Balance. PATIENT NEEDS CLOSE MEDICAL SUPERVISION BY A REHABILITATION PHYSICIAN FOR: Coordination of Treatment Team Medical and Co-Morbidity Management Respiratory/Airway Management Wound Care PATIENT REQUIRES 24X7 REHAB NURSING FOR MEDICAL AND FUNCTIONAL MGT. OF THE FOLLOWING DEFICITS: Disease Management Medication Management Patient requires 24x7 Rehabilitation Nursing for: Pain Issues, Identifying and preventing risk factor s, Monitoring and reporting current medical conditions, Assisting with ambulation and transfer, Guillermina ting with all ADL-s, Teaching patients about disease process and medications, Family teaching, Provid ing safe environment, Bowel and Bladder Issues, Skin Integrity, and Medication Management Patient/Family Education Providing Safe Environment Respiratory/Airway Management Skin Integrity PATIENT REQUIRES INTENSIVE, COORDINATED INTERDISCIPLINARY APPROACH TO REHAB: Arranging Home Equipment/Services Discharge Planning Family Intervention/Training Patient needs Dietary and Nutrition Services for: Adequate Nutrition, Nutritional Supplements, and Nu tritional Education Patient needs Cement Finishing Supervisor and/or Case Management for: Discharge Planning, Arranging Home Equipmen t or Services, and Family Interventions Cement Finishing Supervisor/Case Management PATIENT REHAB POTENTIAL: Flash ESPANA is able and expected to receive 3 hours of individualized therapy daily on at least 5 zohaib ry 7 days Flash ESPANA's prognosis for significant practical improvement within a reasonable period of time appears Good Expected level of measurable improvement will be of a practical value to Flash ESPANA's functional capaci ty or adaptations to impairments Has a viable Discharge Plan Medically appropriate; condition is sufficiently stable to participate in intensive rehab program DISCHARGE PLAN: - Estimated Length of Stay (days) 13. - Consensus on plan Discharge plan has been discussed with primary caregiver. Patient/Family is in agreement with the milton n. Primary caregiver is in agreement with the plan. - Patient/Family Goals Return home independently. - Potential barriers to discharge Any lines must be removed or patient/caregiver needs to be educated on line care. - Planned Living Setting Upon Discharge Home, to live with Family/Relatives. Transitional Living. RECOMMENDED CARE LEVEL: IRF RECOMMENDATION DETAILS: Recommended Admission to Comprehensive Rehabilitation Program to Increase Functional [place] SCREENER'S COMPLETENESS CONFIRMATION: - Screening Confirmation The patient data collection on this preadmission screening form is finished PHYSICIANS REVIEW AND ADMISSION DETERMINATION Admit - Based on my review of the Pre-Admission Screening results, in my medical judgment and experie nce, I concur with the findings and recommend admission to [facility], as this patient requires an IRF level of care. SIGNATURE PANEL: Lockstitch Sleeve Setter - [electronically] signed by Sergio Merrill PT on 03/24/2022 at 14:26 (CDT) Physician Reviewer - [electronically] signed by Dr. Clint Sandoval M.D. on 03/24/2022 at 15:40 (CDT )
--- OUTSIDE RECORDS SUMMARY | 2022-03-25 13:29 | XMS REPORT | Continuity of Care Document ---
:1970 Author Organization [facility] t Address [address] [place] [address] Care Team Providers Name Role Phone THALIA LOPEZ Primary Care Physician Unavailable Ghulam Lopez Attending Clinician Unavailable NGOZI TAMEZ Attending Clinician Unavailable WYATT DAWSON Attending Clinician Unavailable LAURIE SANCHES Attending Clinician Unavailable BILLIE ALVES Attending Clinician Unavailable SANDY Attending Clinician Unavailable SANDY Attending Clinician Unavailable NIR HOOKS Attending Clinician Unavailable NGOZI TAMEZ Attending Clinician Unavailable JORGE Attending Clinician Unavailable Ngozi Tamez MD Attending Clinician Kiley PALENCIA Attending Clinician KILEY Attending Clinician Unavailable NGOZI TAMEZ Admitting Clinician Unavailable Erik SALINAS Admitting Clinician Unavailable Payers Payer Name Policy Type Policy Number Effective Date Expiration Date Asha AKBAR [id number] 2018 00:00:00 HMO/POS/OPEN ACCESS BCBS OS [id number] 2021 00:00:00 POS/PPO/EPO OUT OF STATE BCBS [id number] - PPO - BCBS OPEN ACCESS [id number] HMO/POS/EPO/PPO - AETNA NETWORK OPEN [id number] ACCESS - CIGNA CVCP-AETNA [id number] AETNA [facility] [id number] 2020 00:00:00 ACCESS Problems Condition Condition Condition Status Onset Resolution Last Treating Co mments Source Name Details Category Date Date Treatment Clinician Date Rectal Rectal Disease Active [facility] cancer cancer 2-22 College (HCCode) (HCCode) 00:00: of 00 Medicin e Allergies, Adverse Reactions, Alerts Allergy Allergy Status Severity Reaction(s) Onset Inactive Treating Comm ents Source Name Type Date Date Clinician NO KNOWN Allergy Active [facility] Social History Social Habit Start Date Stop Date Quantity Comments Source History [facility] Alcohol Frequency of Medi cine History [facility] ge Alcohol Std Drinks of Med icine History [facility] Alcohol Binge of Medicine Exposure to Yes [facility] e SARS-CoV-2 (event) of Med icine Alcohol intake 2021-12-28 2021-12-28 Current drinker [facility] 00:00:00 00:00:00 of alcohol of Medicine (finding) Alcohol Comment 2020-10-09 2020-10-09 [facility] 00:00:00 00:00:00 of Medicine Tobacco use and 2020-10-09 2020-10-09 Smokeless tobacco [facility] exposure 00:00:00 00:00:00 non-user of Medicine Sex [birth year] At [birth year] [facility] 00:00:00 00:00:00 of Medicine Smoking Status Start Date Stop Date Source Never smoked tobacco [facility] Eze ege of Medicine Medications Ordered Filled Start Stop Current Ordering Indication Dosage Frequency Signature Comments Components Source Medication Medication Date Date Medication? Clinician (SIG) Name Name sertraline Yes 100mg Take 100 [facility] (ZOLOFT) 2-21 mg by [place] 100 MG 14:49: mouth of tablet 33 daily. Medicin Last dose e 07/2021 gabapentin Yes 300mg Take 300 [facility] (NEURONTIN) 2-21 mg by [place] 300 MG 14:46: mouth 3 of capsule 23 times Medicin daily. e Apixaban Yes 2.5mg Take 2.5 [facility] (ELIQUIS) 2-21 mg by [place] 2.5 MG TABS 14:46: mouth two o f 23 times Medicin daily. e prochlorper 2020-11 Yes 10mg Take 1 [facility] azine 2-30 Tablet by [place] (COMPAZINE) 00:00: mouth of 10 MG 00 every 6 Medicin tablet hours as e needed for Nausea for up to 30 doses. Vitamin D, 2020-11 Yes 1{capsu Take 1 [facility] Ergocalcife 0-11 le} capsule by Julien wilkins rol, 1.25 15:23: mouth of MG (45888 [id number] every 7 Medicin [place]) CAPS days. e pantoprazol 2020- No 20mg Take 1 [facility] e 07-30 Tablet by [place] (PROTONIX) 00:00: 05:59 mouth of 20 MG 00 :00 daily for Medicin tablet 90 days. e Take everyday for 3 months pantoprazol 2020- No 20mg Take 1 [facility] e 07-30 Tablet by [place] (PROTONIX) 00:00: 05:59 mouth of 20 MG 00 :00 daily for Medicin tablet 90 days. e Take everyday for 3 months pantoprazol 2020- No 20mg Take 1 [facility] e 07-30 Tablet by [place] (PROTONIX) 00:00: 05:59 mouth of 20 MG 00 :00 daily for Medicin tablet 90 days. e Take everyday for 3 months tramadol 2020- No 1{tbl} Take 1 [facility] (ULTRAM) 50 07-30 Tablet by Id claudette MG tablet 00:00: 04:59 mouth of 00 :00 every 8 Medicin hours as e needed for Pain for up to 7 days. Take after surgery as needed for pain ondansetron 2020- No 4mg Take 1 [facility] (ZOFRAN-ODT 07-30 Tablet by Memorado llwanda ) 4 mg 00:00: 04:59 mouth of [...] pain ondansetron 2020- No 4mg Take 1 [facility] (ZOFRAN-ODT 07-30 Tablet by Co llege [...] surgery Scopolamine 2020- No 1{patch Place 1 [facility] 1 MG/3DAYS 07-30 } Patch onto [...] as needed for nausea Vitamin D, Yes [id number] TAKE 1 [facility] 6-03 CAPSULE BY Co llege rol, 1.25 00:00: MOUTH of MG (85620 00 EVERY 7 Medicin [place]) CAPS DAYS e Vitamin D, Yes [id number] TAKE 1 [facility] Ergocalcife 6-03 CAPSULE BY Co llege rol, 1.25 00:00: MOUTH of MG (82278 00 EVERY 7 Medicin [place]) CAPS DAYS e Vitamin D, Yes [id number] TAKE 1 [facility] 6-03 CAPSULE BY Julien moses, 1.25 00:00: MOUTH of MG ( EVERY 7 Medicin UT) CAPS DAYS e Vitamin D, 202- No [id number] TAKE 1 [facility] Ergocal[facility] 6-03 10-11 CAPSULE BY Alfonso moses, 1.25 00:00: 00:00 MOUTH of MG ( 00 :00 EVERY 7 Medicin UT) CAPS [...] mouth of 00 daily. Medicin e atorvastati 2020-1 Yes 1{tbl} Take 1 [facility] (LIPITOR) 1-10 Tablet by Col lege 10 MG 00:00: mouth of tablet 00 daily. Medicin e XIGDUO XR 2019-11 Yes 1{tbl} Take 1 [facility] 5-1000 MG 1-10 Tablet by Colle ge TB24 00:00: mouth of 00 daily. Medicin e sertraline 2019-11 Yes 1{tbl} Take 1 [facility] (ZOLOFT) 1-09 Tablet by Colleg e 100 MG 00:00: mouth of tablet 00 daily. Medicin e sertraline 2019-11 Yes 1{tbl} Take 1 [facility] (ZOLOFT) 1-09 Tablet by Colleg e 100 MG 00:00: mouth of tablet 00 daily. Medicin e sertraline 2019-11 Yes 1{tbl} Take 1 [facility] (ZOLOFT) 1-09 Tablet by Colleg e 100 MG 00:00: mouth of tablet 00 daily. Medicin e sertraline 2019-11 Yes 1{tbl} Take 1 [facility] (ZOLOFT) 1-09 Tablet by Colleg e 100 MG 00:00: mouth of tablet 00 daily. Medicin e sertraline 2019-11 Yes 1{tbl} Take 1 [facility] (ZOLOFT) 1-09 Tablet by Colleg e 100 MG 00:00: mouth of tablet 00 daily. Medicin e Continuous 2019-11 Yes 1{strip 1 Strip [facility] Blood Gluc 0-12 } See Admin Eze ege Sensor 00:00: Instructio of (FREESTYLE 00 ns. Medicin CAROL 2 e SENSOR SYSTM) [facility] Continuous 2019-11 Yes 1{strip 1 Strip [facility] Blood Gluc 0-12 } See Admin Eze ege Sensor 00:00: Instructio of (FREESTYLE 00 ns. Medicin CAROL 2 e SENSOR SYSTM) [facility] Continuous 2019-11- No 1{strip 1 Strip [facility] Blood Gluc 0-12 23 } See Admin Col lege Sensor 00:00: 00:00 Instructio of (FREESTYLE 00 :00 ns. Medicin CAROL 2 e SENSOR SYSTM) [facility] Continuous 2019-11- No 1{strip 1 Strip [facility] Blood Gluc 0-12 07-30 } See Admin Col lege Sensor 00:00: 00:00 Instructio of (FREESTYLE 00 :00 ns. Medicin CAROL 2 e SENSOR SYSTM) MISC Atorvastati Atorvastati Yes Marco Antonio 1 tablet Common n Calcium n Calcium 07-15 [facility] Spir it 00:00: - [facility] 00 [facility] Zoloft Zoloft Yes Marco Antonio Take 1/2 Com mon 07-15 Lopez tab QD x 1 Spirit 00:00: week then - [facility] 00 take 1 tab QD [facility] Xigduo XR Xigduo XR 2020- No Marco Natonio 1 tablet Common 07-15 Lopez [facility] 00:00: 00:00 - [facility] 00 :00 [facility] Immunizations Ordered Immunization Filled Immunization Date Status Commen ts Source Name Name PNEUMAVAX 23 PNEUMAVAX 23 2020-06-24 Completed Common Spi rit 00:00:00 - [facility] Vital Signs Vital Name Observation Time Observation Value Comments Source HEIGHT 2021-08-04 06:30:00 167.6 cm WEIGHT 2021-08-04 06:30:00 114.76 kg HEIGHT 2021-08-03 08:40:00 167 cm WEIGHT 2021-08-03 08:40:00 102 kg HEIGHT 2022-03-19 12:06:00 167.6 cm WEIGHT 2022-03-19 12:06:00 72.576 kg HEIGHT 2022-03-19 12:06:00 167.6 cm WEIGHT 2022-03-19 12:06:00 72.576 kg Systolic blood 2021-12-28 20:37:00 118 mm[Hg] [facility] pressure Medicine Diastolic blood 2021-12-28 20:37:00 73 mm[Hg] [facility] of pressure Medicine Heart rate 2021-12-28 20:37:00 90 /min [facility] Body temperature 2021-12-28 20:37:00 36.89 [place] [facility] Body height 2021-12-28 20:37:00 167.6 cm [facility] Body weight 2021-12-28 20:37:00 85.367 kg [facility] BMI 2021-12-28 20:37:00 30.38 kg/m2 [facility] Systolic blood 2021-08-17 20:11:00 115 mm[Hg] [facility] of pressure Medicine Diastolic blood 2021-08-17 20:11:00 75 mm[Hg] [facility] of pressure Medicine Heart rate 2021-08-17 20:11:00 65 /min [facility] Body temperature 2021-08-17 20:11:00 36.83 [place] [facility] Body height 2021-08-17 20:11:00 167.6 cm [facility] Body weight 2021-08-17 20:11:00 108.41 kg [facility] BMI 2021-08-17 20:11:00 38.58 kg/m2 [facility] HEIGHT 2021-08-04 06:30:00 167.6 cm WEIGHT 2021-08-04 06:30:00 114.76 kg HEIGHT 2021-08-03 08:40:00 167 cm WEIGHT 2021-08-03 08:40:00 102 kg Systolic blood 2021 17:49:00 116 mm[Hg] [facility] pressure Medicine Diastolic blood 2021 17:49:00 79 mm[Hg] [facility] pressure Medicine Heart rate 2021 17:49:00 82 /min [facility] Body temperature 2021 17:49:00 36.56 L[place] [facility] Body height 2021 17:49:00 167.6 cm [facility] Body weight 2021 17:49:00 114.76 kg [facility] BMI 2021 17:49:00 40.84 kg/m2 [facility] Systolic blood 2020-10-09 14:14:00 117 mm[Hg] [facility] of pressure Medicine Diastolic blood 2020-10-09 14:14:00 77 mm[Hg] [facility] pressure Medicine Heart rate 2020-10-09 14:14:00 98 /min [facility] Body temperature 2020-10-09 14:14:00 36.83 [place] [facility] Body height 2020-10-09 14:14:[address] [facility] ollege of Medicine Body weight 2020-10-09 14:14:[address] [facility] ollege of Medicine BMI 2020-10-09 14:14:00 38.64 kg/m2 [facility] ollege of Medicine Systolic blood 2020-10-09 14:14:00 117 mm[Hg] [facility] pressure Medicine Diastolic blood 2020-10-09 14:14:00 77 mm[Hg] [facility] pressure Medicine Heart rate 2020-10-09 14:14:00 98 /min [facility] Body temperature 2020-10-09 14:14:00 36.83 [place] [facility] Body height 2020-10-09 14:14:[address] [facility] ollege of Medicine Body weight 2020-10-09 14:14:[address] [facility] ollege of Medicine BMI 2020-10-09 14:14:00 38.64 kg/m2 [facility] Procedures This patient has no known procedures. Plan of Care Planned Activity Planned Date Details Comments Source Future Scheduled 2022-02-15 CT CHEST W ABD/PELVIS Expected: [facility] [employer] [facility] 00:00:00 WO/W [code = 58044] 02/15/2022, of Medic ine Expires: 12/28/2022 Future Scheduled 2021-12-29 Screening for malignant [facility] Test 07:17:16 neoplasm of colon of Medicin e (procedure) [code = 193316091] Future Scheduled 2021-12-29 Screening for malignant [facility] [employer] Test 07:17:16 neoplasm of breast of Medici ne (procedure) [code = 253418968] Future Scheduled 2021-12-29 Hepatitis C screening [facility] [employer] [facility] 07:17:16 (procedure) [code = of Medic ine 128591640] Future Scheduled 2021-12-29 Human immunodeficiency [facility] 07:17:16 virus screening of Medicine (procedure) [code = 334197007] Future Scheduled 2021-12-29 Screening for malignant [facility] Test 07:17:16 neoplasm of cervix of Medici ne (procedure) [code = 059830079] Future Scheduled 2021-12-29 COVID-19 Vaccine (3 - [facility] 07:17:16 Booster for Moderna of Medic ine series) [code = COVID-19 Vaccine (3 - Booster for Moderna series)] Future Scheduled 2021-12-29 FLU VACCINE > 6 MONTHS [facility] [employer] [facility] 07:17:16 [code = FLU VACCINE > 6 of M edicine MONTHS] Future Scheduled 2021-12-29 ZOSTER VACCINE (1 of 2) [facility] Test 07:17:16 [code = ZOSTER VACCINE of Me dicine (1 of 2)] Future Scheduled 2021-12-29 BMI FOLLOW UP PLAN [facility] [employer] [facility] 07:17:16 [code = BMI FOLLOW UP of Med icine PLAN] Future Scheduled 2021-12-29 TETANUS SHOT (ADULT) [facility] [employer] [facility] 07:17:16 [code = TETANUS SHOT of Medi cine (ADULT)] Future Scheduled 2021-12-28 WILD 1 [code = NOCPT] Ordered: [facility] [employer] [facility] 16:04:25 12/28/2021 of Medicine Future Scheduled 2021-12-28 TEMPUS XT TISSUE NGS Ordered: [facility] [employer] Test 15:52:56 [code = 12574240] 12/28/2021 of Medicin e Future Scheduled 2021-08-17 BMI FOLLOW UP PLAN [facility] [employer] [facility] 15:15:29 [code = BMI FOLLOW UP of Med icine PLAN] Future Scheduled 2021-08-17 Screening for malignant [facility] Test 15:13:47 neoplasm of colon of Medicin e (procedure) [code = 974973870] Future Scheduled 2021-08-17 Screening for malignant [facility] [employer] [facility] 15:13:47 neoplasm of breast of Medici ne (procedure) [code = 591469970] Future Scheduled 2021-08-17 TETANUS SHOT (ADULT) [facility] [employer] [facility] 15:13:47 [code = TETANUS SHOT of Medi cine (ADULT)] Future Scheduled 2021-08-17 Hepatitis C screening [facility] [employer] [facility] 15:13:47 (procedure) [code = of Medic ine 400930903] Future Scheduled 2021-08-17 Human immunodeficiency [facility] [employer] [facility] 15:13:47 virus screening of Medicine (procedure) [code = 306658366] Future Scheduled 2021-08-17 Screening for malignant [facility] [employer] Test 15:13:47 neoplasm of cervix of Medici ne (procedure) [code = 197111880] Future Scheduled 2021-08-17 FLU VACCINE > 6 MONTHS [facility] [employer] [facility] 15:13:47 [code = FLU VACCINE > 6 of M edicine MONTHS] Future Scheduled 2021-08-17 ZOSTER VACCINE (1 of 2) [facility] Test 15:13:47 [code = ZOSTER VACCINE of Me dicine (1 of 2)] Future Scheduled 2021 BMI FOLLOW UP PLAN [facility] [employer] [facility] 12:51:47 [code = BMI FOLLOW UP of Med icine PLAN] Future Scheduled 2021 BMI FOLLOW UP PLAN [facility] [employer] [facility] 12:51:47 [code = BMI FOLLOW UP of Med icine PLAN] Future Scheduled 2021 Screening for malignant [facility] Test 12:49:38 neoplasm of colon of Medicin e (procedure) [code = 120395183] Future Scheduled 2021 Screening for malignant [facility] Test 12:49:38 neoplasm of breast of Medici ne (procedure) [code = 338140383] Future Scheduled 2021 TETANUS SHOT (ADULT) [facility] Test 12:49:38 [code = TETANUS SHOT of Medi cine (ADULT)] Future Scheduled 2021 Hepatitis C screening [facility] Test 12:49:38 (procedure) [code = of Medic ine 152409415] Future Scheduled 2021 Human immunodeficiency [facility] Test 12:49:38 virus screening of Medicine (procedure) [code = 492154628] Future Scheduled 2021 Screening for malignant [facility] Test 12:49:38 neoplasm of cervix of Medici ne (procedure) [code = 516326008] Future Scheduled 2021 FLU VACCINE > 6 MONTHS [facility] [employer] [facility] 12:49:38 [code = FLU VACCINE > 6 of M edicine MONTHS] Future Scheduled 2021 ZOSTER VACCINE (1 of 2) [facility] Test 12:49:38 [code = ZOSTER VACCINE of Me dicine (1 of 2)] Future Scheduled 2021 Screening for malignant [facility] Test 12:49:38 neoplasm of colon of Medicin e (procedure) [code = 807717664] Future Scheduled 2021 Screening for malignant [facility] Test 12:49:38 neoplasm of breast of Medici ne (procedure) [code = 793302426] Future Scheduled 2021 TETANUS SHOT (ADULT) [facility] [employer] [facility] 12:49:38 [code = TETANUS SHOT of Medi cine (ADULT)] Future Scheduled 2021 Hepatitis C screening [facility] [employer] [facility] 12:49:38 (procedure) [code = of Medic ine 736379718] Future Scheduled 2021 Human immunodeficiency [facility] [employer] [facility] 12:49:38 virus screening of Medicine (procedure) [code = 680166424] Future Scheduled 2021 Screening for malignant [facility] Test 12:49:38 neoplasm of cervix of Medici ne (procedure) [code = 413741698] Future Scheduled 2021 FLU VACCINE > 6 MONTHS [facility] [employer] [facility] 12:49:38 [code = FLU VACCINE > 6 of M edicine MONTHS] Future Scheduled 2021 ZOSTER VACCINE (1 of 2) [facility] Test 12:49:38 [code = ZOSTER VACCINE of Wy dicine (1 of 2)] Future Scheduled 2021-07-17 Screening for malignant [facility] [employer] [facility] 10:50:40 neoplasm of colon of Medicin e (procedure) [code = 376008845] Future Scheduled 2021-07-17 Screening for malignant [facility] [employer] [facility] 10:50:40 neoplasm of breast of Medici ne (procedure) [code = 043279802] Future Scheduled 2021-07-17 TETANUS SHOT (ADULT) [facility] [employer] [facility] 10:50:40 [code = TETANUS SHOT of Medi cine (ADULT)] Future Scheduled 2021-07-17 Hepatitis C screening [facility] [employer] [facility] 10:50:40 (procedure) [code = of Medic ine 676741958] Future Scheduled 2021-07-17 Human immunodeficiency [facility] [employer] [facility] 10:50:40 virus screening of Medicine (procedure) [code = 261305048] Future Scheduled 2021-07-17 Screening for malignant [facility] [employer] Test 10:50:40 neoplasm of cervix of Medici ne (procedure) [code = 421251659] Future Scheduled 2021-07-17 FLU VACCINE > 6 MONTHS [facility] [employer] [facility] 10:50:40 [code = FLU VACCINE > 6 of M edicine MONTHS] Future Scheduled 2021-07-17 BMI FOLLOW UP PLAN [facility] 10:50:40 [code = BMI FOLLOW UP of Med icine PLAN] Future Scheduled PT INSTR GIVEN - Ordered: [facility] Test TOBACCO [code = NOCPT] 10/09/2020 of Me dicine Future Scheduled MAMMOGRAM ANNUAL [code [facility] Test = MAMMOGRAM ANNUAL] of Medic ine Future Scheduled TETANUS SHOT (ADULT) [facility] Test [code = TETANUS SHOT of Medi cine (ADULT)] Future Scheduled HEPATITIS C SCREENING [facility] [employer] [facility] [code = HEPATITIS C of Medic ine SCREENING] Future Scheduled HIV SCREENING [code = [facility] HIV SCREENING] of Medicine Future Scheduled CERVICAL CANCER [facility] C ollege Test SCREENING 3 YEAR FOLLOW of M edicine UP [code = CERVICAL CANCER SCREENING 3 YEAR FOLLOW UP] Future Scheduled FLU VACCINE > 6 MONTHS [facility] [employer] [facility] [code = FLU VACCINE > 6 of M edicine MONTHS] Encounters Start End Encounter Admission Attending Care Care Encounter Source Date/Time Date/Time Type Type Clinicians Facility Department ID 2022-01-26 Outpatient Lopez, [facility] [id number] Common 15:07:00 [facility] 2022-01-04 [facility] [id number] Common 15:09:02 Marco Antonio [facility] 2021-12-08 Out[facility], [facility] [id number] Common 09:05:02 Marco Antonio [facility] 2021-12-02 Out[facility], [facility] [id number] Common 14:36:55 Marco Antonio [facility] 2021-12-02 Out[facility], [facility] [id number] Common 14:07:52 Marco Antonio 07246 [facility] 2021-12-02 Out[facility], [facility] [id number] Common 14:03:52 Marco Antonio 38424 [facility] 2021-12-02 Out[facility] Lopez, [facility] [id number] Common 13:55:47 Marco Antonio [facility] 2021-12-02 Out[facility] Lopez, [facility] [id number] Common 13:53:17 Marco Antonio 35918 [facility] 2021-12-02 [facility], [facility] [id number] Common 13:11:18 Marco Antonio 58031 [facility] 2021-12-02 [facility] [id number] Common 12:40:47 Marco Antonio 70106 [facility] 2021-12-02 Out[facility], [facility] [id number] Common 12:36:13 Marco Antonio 84361 [facility] 2021-12-02 Out[facility] Lopez, [facility] [id number] Common 12:10:36 Marco Antonio 34148 [facility] 2021-12-02 Out[facility] Lopez, [facility] [id number] Common 11:38:47 Marco Antonio 56999 [facility] 2021-12-02 Out[facility] Lopez, [facility] [id number] Common 11:21:02 Marco Antonio [facility] 2021-08-16 Inpatient MATTAR, [facility] Surgery [id number] [facility] 06:30:09 SAMER 2022-04-07 2022-04-07 Outpatient EL SLE [facility] [id number] SLE 00:00:00 00:00:00 2022-03-19 2022-03-[id number] [facility] 00:14:00 12:12:00 MRINALINI Med 2022-03-11 2022-03-11 Outpatient EL ALVES, [facility] [id number] [facility] 00:00:00 00:00:00 [facility] 2022-03-08 2022-03-08 Outpatient EL SLE SLE [id number] [facility] 06:59:19 06:59:19 2022-02-26 2022-02-26 Outpatient EL ALVES, SLE SLE [id number] [facility] 12:02:22 23:59:00 [facility] 2022-02-26 2022-02-26 Outpatient EL SLE SLE [id number] [facility] 08:03:32 08:03:32 2022-02-26 2022-02-26 Outpatient ANDREI ALVES [facility] [id number] [facility] 00:00:00 00:00:00 HALLIE 2022-02-26 2022-02-26 ambulatory [facility] [id number] Common 00:00:00 00:00:00 [facility] 2022-02-17 2022-02-17 Outpatient ANDREI SLE SLE [id number] [facility] 07:49:49 07:49:49 2022-02-16 2022-02-16 Outpatient ANDREI DELGADO, SLE SLE [id number] SLE 00:00:00 23:59:00 TANNAZ 2022-02-16 2022-02-16 Outpatient ANDREI DELGADO SLE SLE [id number] [facility] 00:00:00 00:00:00 MELLKY 2021-12-28 2021-12-28 Office [facility] [id number] [facility] 14:16:03 15:50:38 Visit SKYLAR Enma [id number] Co llege [id number] of [id number] Medi sang 504 e 2021-12-09 2021-12-09 ambulatory [facility] [id number] Common 00:00:00 00:00:00 [facility] 2021-11-12 2021-11-12 Outpatient SAMUEL [facility] [id number] SAMUEL 11:20:00 23:59:00 DAPHNEY 2021-11-05 2021-11-05 Outpatient BRODY TAMEZ [place] [id number] [facility] 13:26:47 13:40:13 ALYSSA roman of Medicin e 2021-09-23 2021-09-23 [id number] [address] [place] [address] 00:00:00 00:00:00 [facility]IS [facility] 2021-09-23 2021-09-23 [facility] [id number] [address] [place] [address] 00:00:00 00:00:00 [facility]IS [facility] 2021-09-14 2021-09-14 ambulatory [facility] [id number] Common 00:00:00 00:00:00 [facility] 2021-09-09 2021-09-09 ambulatory [facility] [id number] Common 00:00:00 00:00:00 [facility] 2021-09-02 2021-09-02 Outpatient [facility] [id number] Common 00:00:00 00:00:00 [facility] 2021-09-01 2021-09-01 Outpatient [facility] [id number] Common 00:00:00 00:00:00 [facility] 2021-08-28 2021-08-28 Outpatient [facility] [id number] Common 00:00:00 00:00:00 [facility] 2021-08-20 2021-08-20 Outpatient [facility] [id number] Common 00:00:00 00:00:00 [facility] 2021-08-17 2021-08-17 Office MATTAR, CARL 1.2.840.[id number] [place] [address] 14:47:06 15:14:31 Visit SAMER AMBULATOR 350.1.13.21 College Y 0.2.7.2.686 of [id number] Medi sang 805 e 2021-08-10 2021-08-10 Outpatient STLMLC STLMLC [id number] Common 00:00:00 00:00:00 [facility] 2021-08-10 2021-08-10 Outpatient STLMLC STLMLC [id number] Common 00:00:00 00:00:00 [facility] 2021-08-03 2021-08-03 Outpatient EL SLEH SLEH [id number] SLEH 00:00:00 00:00:00 2021-07-31 2021-07-31 Outpatient STLMLC STLMLC [id number] Common 00:00:00 00:00:00 [facility] 2021 2021 Outpatient [facility] [id number] [facility] 00:00:00 23:59:00 [facility] 2021 2021 Office BRODY Tamez 1.2.840.114 [id number] [facility] 12:34:26 13:04:26 Visit Samer Gamil AMBULATOR 350.1.13.21 College Y 0.2.7.2.686 of [id number] [facility] sang 805 e 2021 2021 Outpatient [facility] [id number] SLE 00:00:00 00:00:00 2021 2021 Outpatient EL SLE SLE [id number] SLE 00:00:00 00:00:00 2021 2021 Outpatient EL [facility] [id number] SLE 00:00:00 00:00:00 2021-07-17 2021-07-17 Office BRODY Cao 1.2.840.[id number] [place] [address] 11:00:00 12:00:00 Visit Jolene AMBULATOR 350.1.13.21 College Y 0.2.7.2.686 of [id number] [facility] sang 810 e 2021-05-01 2021-05-01 Outpatient STLMLC STLMLC [id number] Common 00:00:00 00:00:00 [facility] 2021-04-13 2021-04-13 Outpatient STLMLC STLMLC [id number] Common 00:00:00 00:00:00 [facility] 2021-03-27 2021-03-27 Outpatient STLMLC STLMLC [id number] Common 00:00:00 00:00:00 [facility] 2021-03-04 2021-03-04 Outpatient BRODY CAO [id number] [facility] 09:27:48 09:43:02 JOLENE [facility] [employer] [facility] 2021-02-16 2021-02-16 Outpatient BRODY CAO [id number] [facility] 09:30:25 09:54:09 JOLENE [facility] [employer] [facility] 2021-02-04 2021-02-04 Outpatient KILEY Ghulam [facility] [id number] [facility] 14:40:19 14:57:28 JOLENE [facility] [employer] [facility] [employer] 2021-01-27 2021-01-27 Outpatient STLMLC STLMLC [id number] Common 00:00:00 00:00:00 [facility] 2021-01-27 2021-01-27 Outpatient STLMLC STLMLC [id number] Common 00:00:00 00:00:00 [facility] 2021-01-24 2021-01-24 Outpatient STLMLC STLMLC [id number] Common 00:00:00 00:00:00 [facility] 2021-01-09 2021-01-09 Outpatient STLMLC STLMLC [id number] Common 00:00:00 00:00:00 [facility] 2021-01-07 2021-01-07 Outpatient KILEY, [facility] [id number] [facility] 09:28:50 09:55:15 JOLENE Chávez e of Medicin e 2020-12-10 2020-12-10 Outpatient KILEY, [facility] [id number] [facility] 14:28:59 14:55:01 JOLENE Ch[facility] e [facility] Medicin e 2020-11-13 2020-11-13 Outpatient STLMLC STLMLC [id number] Common 00:00:00 00:00:00 [facility] 2020-10-22 2020-10-22 Outpatient STLMLC STLMLC [id number] Common 00:00:00 00:00:00 [facility] 2020-10-22 2020-10-22 Outpatient STLMLC STLMLC [id number] Common 00:00:00 00:00:00 [facility] 2020-10-13 2020-10-13 Outpatient STLMLC STLMLC [id number] Common 00:00:00 00:00:00 [facility] 2020-10-13 2020-10-13 Outpatient STLMLC STLMLC [id number] Common 00:00:00 00:00:00 [facility] 2020-10-09 2020-10-09 Office Joi, BRODY 1.2.840.114 [id number] [facility] 08:04:19 09:04:19 Visit Samer Gamil AMBULATOR 350.1.13.21 College Y 0.2.7.2.686 of [id number] [facility] 800 e 2020-10-09 2020-10-09 Office Rudolphtar, BCM 1.2.840.114 [id number] 08:04:19 09:04:19 Visit Samer Gamil AMBULATOR 350.1.13.21 Y 0.2.7.2.686 [id number] 2020-10-08 2020-10-08 Outpatient STLMLC STLMLC [id number] Common 00:00:00 00:00:00 [facility] 2020-08-12 2020-08-12 Outpatient STLMLC STLMLC [id number] Common 00:00:00 00:00:00 [facility] 2020-08-08 2020-08-08 Outpatient STLMLC STLMLC [id number] Common 00:00:00 00:00:00 [facility] 2020-07-15 2020-07-15 Out[id number] Common 08:30:00 08:30:[address] [place] [address] [facility] 2020-07-10 2020-07-10 Out[facility] [id number] Common 08:52:00 08:52:[address] [place] [address] [facility] 2020-06-24 2020-06-24 [facility] [id number] Common 15:30:00 15:30:[address] [facility] Results Test Description Test Time Test Comments Results Result Comments Source (CELLAVISION MANUAL DIFF) 2022-03-25 07:32:12 Test Item Value Reference Range Interpretation Comme nts NEUTROPHILS - REL (CELLAVISION)(BEAKER) (test code = 2816) 88 % LYMPHOCYTES - REL (CELLAVISION)(BEAKER) (test code = 2817) 9 % MONOCYTES - REL (CELLAVISION)(BEAKER) (test code = 2818) 2 % BASOPHILS - REL (CELLAVISION)(BEAKER) (test code = 2820) 1 % NEUTROPHILS - ABS (CELLAVISION)(BEAKER) (test code = 2830) 5.28 K/u l 1.56-6.13 LYMPHOCYTES - ABS (CELLAVISION)(BEAKER) (test code = 2831) 0.54 K/ul 1.18-3.74 L MONOCYTES - ABS (CELLAVISION)(BEAKER) (test code = 2832) 0.12 K/uL 0.24-0.36 L BASOPHILS - ABS (CELLAVISION)(BEAKER) (test code = 2835) 0.06 K/uL 0.01-0.08 TOTAL COUNTED (BEAKER) (test code = 1351) 100 WBC MORPHOLOGY (BEAKER) (test code = 487) Normal PLT MORPHOLOGY (BEAKER) (test code = 486) Normal POLYCHROMATOPHILLIC RBCS(BEAKER) (test code = 478) 1+ few ARTIFACT (CELLAVISION)(BEAKER) (test code = 3432) Present PLATELET CONCENTRATION (CELLAVISION)(BEAKER) (test code = Decreased 3438) Geneticist ID - Anastasia Montoya comments: Slide comments:CBC W/PLT COUNT & AUTO [id number] 07:32:03 Test Item Value Reference Range Interpretation Comments WHITE BLOOD CELL COUNT (BEAKER) 6.0 K/ L 3.5-10.5 (test code = 775) RED BLOOD CELL COUNT (BEAKER) 2.52 M/ L 3.93-5.22 L (test code = 761) HEMOGLOBIN (BEAKER) (test code = 7.9 GM/DL 11.2-15.7 L 410) HEMATOCRIT (BEAKER) (test code = 23.2 % 34.1-44.9 L 411) MEAN CORPUSCULAR VOLUME (BEAKER) 92.1 fL 79.4-94.8 (test code = 753) MEAN CORPUSCULAR HEMOGLOBIN 31.3 pg 25.6-32.2 (BEAKER) (test code = 751) MEAN CORPUSCULAR HEMOGLOBIN CONC 34.1 GM/DL 32.2-35.5 (BEAKER) (test code = 752) RED CELL DISTRIBUTION WIDTH 19.2 % 11.7-14.4 H (BEAKER) (test code = 412) PLATELET COUNT (BEAKER) (test 120 K/CU MM 150-450 L code = 756) MEAN PLATELET VOLUME (BEAKER) 12.1 fL 9.4-12.3 (test code = 754) NUCLEATED RED BLOOD CELLS 0 /100 WBC 0-0 (BEAKER) (test code = 413) BASIC METABOLIC [id number] 07:08:43 Test Item Value Reference Range Interpretation Comments SODIUM (BEAKER) 140 meq/L 136-145 (test code = 381) POTASSIUM (BEAKER) 3.0 meq/L 3.5-5.1 L (test code = 379) CHLORIDE (BEAKER) 105 meq/L 98-107 (test code = 382) CO2 (BEAKER) (test 26 meq/L 22-29 code = 355) BLOOD UREA NITROGEN 10 mg/dL 7-21 (BEAKER) (test code = 354) CREATININE (BEAKER) 0.36 mg/dL 0.57-1.25 L (test code = 358) GLUCOSE RANDOM 84 mg/dL 70-105 (BEAKER) (test code = 652) CALCIUM (BEAKER) 7.4 mg/dL 8.4-10.2 L (test code = 697) EGFR (BEAKER) (test 192 mL/min/1.73 ESTIM ATED GFR IS code = 1092) sq m NOT ACCURATE CREATININE CLEARANCE IN PREDICTING GLOMERULAR FILTRATION RATE . ESTIMATED GFR I S NOT APPLICABLE FOR DIALYSIS PATIEN TS. Geneticist ID - [id number] 07:04:29 Test Item Value Reference Range Interpretation Comments MAGNESIUM (BEAKER) (test code = 1.6 mg/dL 1.6-2.6 627) Geneticist ID - [id number] 07:04:29 Test Item Value Reference Range Interpretation Comments PHOSPHORUS (BEAKER) (test code = 3.4 mg/dL 2.3-4.7 604) Geneticist ID - BSPOCT-GLUCOSE [id number] 06:40:10 Test Item Value Reference Range Interpretation Comments POC-GLUCOSE METER 78 mg/dL 70-110 : TESTED A T [facility] 6720 (BEAKER) (test code = [place], 1538) [address]: Geneticist/Techni bryan ID = [id number] for JOESPH RAMIREZ POCT-GLUCOSE [id number] 18:56:48 Test Item Value Reference Range Interpretation Comments POC-GLUCOSE METER 122 mg/dL 70-110 H : TESTED A T [facility] 6720 (BEAKER) (test code = [facility] [place] [facility], 153) 535[address]: Geneticist/Techni bryan ID = [id number] for CHELSY SARABIA CBC W/PLT COUNT & AUTO [id number] 14:23:23 Test Item Value Reference Range Interpretation Comments WHITE BLOOD CELL COUNT (BEAKER) 5.0 K/ L 3.5-10.5 (test code = 775) RED BLOOD CELL COUNT (BEAKER) 2.97 M/ L 3.93-5.22 L (test code = 761) HEMOGLOBIN (BEAKER) (test code = 9.0 GM/DL 11.2-15.7 L 410) HEMATOCRIT (BEAKER) (test code = 27.6 % 34.1-44.9 L 411) MEAN CORPUSCULAR VOLUME (BEAKER) 92.9 fL 79.4-94.8 (test code = 753) MEAN CORPUSCULAR HEMOGLOBIN 30.3 pg 25.6-32.2 (BEAKER) (test code = 751) MEAN CORPUSCULAR HEMOGLOBIN CONC 32.6 GM/DL 32.2-35.5 (BEAKER) (test code = 752) RED CELL DISTRIBUTION WIDTH 18.7 % 11.7-14.4 H (BEAKER) (test code = 412) PLATELET COUNT (BEAKER) (test 101 K/CU MM 150-450 L code = 756) MEAN PLATELET VOLUME (BEAKER) 11.8 fL 9.4-12.3 (test code = 754) NUCLEATED RED BLOOD CELLS 0 /100 WBC 0-0 (BEAKER) (test code = 413) NEUTROPHILS RELATIVE PERCENT 70 % (BEAKER) (test code = 429) LYMPHOCYTES RELATIVE PERCENT 22 % (BEAKER) (test code = 430) MONOCYTES RELATIVE PERCENT 7 % (BEAKER) (test code = 431) EOSINOPHILS RELATIVE PERCENT 0 % (BEAKER) (test code = 432) BASOPHILS RELATIVE PERCENT 0 % (BEAKER) (test code = 437) NEUTROPHILS ABSOLUTE COUNT 3.47 K/ L 1.56-6.13 (BEAKER) (test code = 670) LYMPHOCYTES ABSOLUTE COUNT 1.10 K/ L 1.18-3.74 L (BEAKER) (test code = 414) MONOCYTES ABSOLUTE COUNT (BEAKER) 0.34 K/ L 0.24-0.36 (test code = 415) EOSINOPHILS ABSOLUTE COUNT 0.00 K/ L 0.04-0.36 L (BEAKER) (test code = 416) BASOPHILS ABSOLUTE COUNT (BEAKER) 0.01 K/ L 0.01-0.08 (test code = 417) IMMATURE GRANULOCYTES-RELATIVE 1 % 0-1 PERCENT (BEAKER) (test code = 2801) POCT-GLUCOSE [id number] 06:52:44 Test Item Value Reference Range Interpretation Comments POC-GLUCOSE METER 126 mg/dL 70-110 H : TESTED A T [facility] 6720 (BEAKER) (test code = [place], 1538) [address]: Geneticist/Techni bryan ID = [id number] for GR AHAM, MANAS BASIC METABOLIC [id number] 05:25:09 Test Item Value Reference Range Interpretation Comments SODIUM (BEAKER) 139 meq/L 136-145 (test code = 381) POTASSIUM (BEAKER) 3.4 meq/L 3.5-5.1 L (test code = 379) CHLORIDE (BEAKER) 107 meq/L 98-107 (test code = 382) CO2 (BEAKER) (test 27 meq/L 22-29 code = 355) BLOOD UREA NITROGEN 12 mg/dL 7-21 (BEAKER) (test code = 354) CREATININE (BEAKER) 0.36 mg/dL 0.57-1.25 L (test code = 358) GLUCOSE RANDOM 111 mg/dL 70-105 H (BEAKER) (test code = 652) CALCIUM (BEAKER) 7.3 mg/dL 8.4-10.2 L (test code = 697) EGFR (BEAKER) (test 192 mL/min/1.73 ESTIM ATED GFR IS code = 1092) sq m NOT ACCURATE CREATININE CLEARANCE IN PREDICTING GLOMERULAR FILTRATION RATE . ESTIMATED GFR I S NOT APPLICABLE FOR DIALYSIS PATIEN TS. Geneticist ID - DENISHA [id number] 05:14:14 Test Item Value Reference Range Interpretation Comments PHOSPHORUS (BEAKER) (test code = 2.4 mg/dL 2.3-4.7 604) Geneticist ID - DENISHA [id number] 05:14:13 Test Item Value Reference Range Interpretation Comments MAGNESIUM (BEAKER) (test code = 1.6 mg/dL 1.6-2.6 627) Geneticist ID - DENISHA GPOCT-GLUCOSE [id number] 19:15:29 Test Item Value Reference Range Interpretation Comments POC-GLUCOSE METER 143 mg/dL 70-110 H : TESTED A T [facility] 6720 (BEAKER) (test code = [place], 1538) [address]: Geneticist/Techni bryan ID = [id number] for DA VIS, [place]IRA HEMOGLOBIN AND [id number] 17:03:28 Test Item Value Reference Range Interpretation Comments HEMOGLOBIN (BEAKER) (test code = 5.7 GM/DL 11.2-15.7 LL 410) HEMATOCRIT (BEAKER) (test code = 17.5 % 34.1-44.9 L 411) Geneticist ID - [id number] ID - [id number], [id number] 15:14:58 Test Item Value Reference Range Interpretation Comments CALCIUM IONIZED (BEAKER) (test 1.03 mmol/L 1.12-1.27 L code = 698) PH, BLOOD (BEAKER) (test code = 7.49 1810) BASIC METABOLIC [id number] 12:01:58 Test Item Value Reference Range Interpretation Comments SODIUM (BEAKER) 132 meq/L 136-145 L (test code = 381) POTASSIUM (BEAKER) 2.8 meq/L 3.5-5.1 L (test code = 379) CHLORIDE (BEAKER) 100 meq/L 98-107 (test code = 382) CO2 (BEAKER) (test 29 meq/L 22-29 code = 355) BLOOD UREA NITROGEN 16 mg/dL 7-21 (BEAKER) (test code = 354) CREATININE (BEAKER) 0.40 mg/dL 0.57-1.25 L (test code = 358) GLUCOSE RANDOM 142 mg/dL 70-105 H (BEAKER) (test code = 652) CALCIUM (BEAKER) 7.0 mg/dL 8.4-10.2 L (test code = 697) EGFR (BEAKER) (test 170 mL/min/1.73 ESTIM ATED GFR IS code = 1092) sq m NOT ACCURATE CREATININE CLEARANCE IN PREDICTING GLOMERULAR FILTRATION RATE . ESTIMATED GFR I S NOT APPLICABLE FOR DIALYSIS PATIEN TS. Geneticist ID - [id number] 09:33:29 Test Item Value Reference Range Interpretation Comments MAGNESIUM (BEAKER) 2.4 mg/dL 1.6-2.6 Specimen slightly (test code = 627) hemolyzed Geneticist ID - [id number] 09:33:29 Test Item Value Reference Range Interpretation Comments PHOSPHORUS (BEAKER) 4.3 mg/dL 2.3-4.7 Specimen slightly (test code = 604) hemolyzed Geneticist ID - DBPOCT-GLUCOSE [id number] 07:46:36 Test Item Value Reference Range Interpretation Comments POC-GLUCOSE METER 165 mg/dL 70-110 H : TESTED A T [facility] 6720 (BEAKER) (test code = [facility], [facility]) [address]: Geneticist/Techni bryan ID = [id number] for GR AHAM, MANAS POCT-GLUCOSE [id number] 00:17:48 Test Item Value Reference Range Interpretation Comments POC-GLUCOSE METER 141 mg/dL 70-110 H : TESTED A T [facility] 6720 (BEAKER) (test code = [facility], [facility]) 677[address]: Geneticist/Techni bryan ID = [id number] for GR AHAM, MANAS POCT-GLUCOSE [id number] 19:18:48 Test Item Value Reference Range Interpretation Comments POC-GLUCOSE METER 108 mg/dL 70-110 : TESTED A T [facility] 6720 (BEAKER) (test code = [facility], 1538) 068[address]: Geneticist/Techni bryan ID = [id number] for Pi erre, Lashon POCT-GLUCOSE [id number] 12:34:38 Test Item Value Reference Range Interpretation Comments POC-GLUCOSE METER 182 mg/dL 70-110 H : TESTED A T [facility] 6720 (BEAKER) (test code = [facility], [facility]) 77489: Geneticist/Techni bryan ID = [id number] for Pi erre, Lashon POCT-GLUCOSE [id number] 06:27:11 Test Item Value Reference Range Interpretation Comments POC-GLUCOSE METER 125 mg/dL 70-110 H : TESTED A T [facility] 6720 (BEAKER) (test code = [place], 1538) [address]: Geneticist/Techni bryan ID = [id number] for Ruby Ha BASIC METABOLIC [id number] 05:55:46 Test Item Value Reference Range Interpretation Comments SODIUM (BEAKER) 133 meq/L 136-145 L (test code = 381) POTASSIUM (BEAKER) 3.3 meq/L 3.5-5.1 L Specimen slightly (test code = 379) hemolyzed CHLORIDE (BEAKER) 103 meq/L 98-107 (test code = 382) CO2 (BEAKER) (test 23 meq/L 22-29 code = 355) BLOOD UREA NITROGEN 14 mg/dL 7-21 (BEAKER) (test code = 354) CREATININE (BEAKER) 0.41 mg/dL 0.57-1.25 L Specimen slightly (test code = 358) hemolyzed GLUCOSE RANDOM 166 mg/dL 70-105 H (BEAKER) (test code = 652) CALCIUM (BEAKER) 6.6 mg/dL 8.4-10.2 L (test code = 697) EGFR (BEAKER) (test 165 mL/min/1.73 ESTIM ATED GFR IS code = 1092) sq m NOT ACCURATE CREATININE CLEARANCE IN PREDICTING GLOMERULAR FILTRATION RATE . ESTIMATED GFR I S NOT APPLICABLE FOR DIALYSIS PATIEN TS. Geneticist ID - EDSON [id number] 05:54:39 Test Item Value Reference Range Interpretation Comments PHOSPHORUS (BEAKER) 2.5 mg/dL 2.3-4.7 Specimen slightly (test code = 604) hemolyzed Geneticist ID - EDSON [id number] 05:54:38 Test Item Value Reference Range Interpretation Comments MAGNESIUM (BEAKER) 1.8 mg/dL 1.6-2.6 Specimen slightly (test code = 627) hemolyzed Geneticist ID - EDSON WCBC (HEMOGRAM ONLY)2022-03-22 05:34:07 Test Item Value Reference Range Interpretation Comments WHITE BLOOD CELL COUNT (BEAKER) 4.0 K/ L 3.5-10.5 (test code = 775) RED BLOOD CELL COUNT (BEAKER) 2.17 M/ L 3.93-5.22 L (test code = 761) HEMOGLOBIN (BEAKER) (test code = 6.9 GM/DL 11.2-15.7 L 410) HEMATOCRIT (BEAKER) (test code = 21.1 % 34.1-44.9 L 411) MEAN CORPUSCULAR VOLUME (BEAKER) 97.2 fL 79.4-94.8 H (test code = 753) MEAN CORPUSCULAR HEMOGLOBIN 31.8 pg 25.6-32.2 (BEAKER) (test code = 751) MEAN CORPUSCULAR HEMOGLOBIN CONC 32.7 GM/DL 32.2-35.5 (BEAKER) (test code = 752) RED CELL DISTRIBUTION WIDTH 17.8 % 11.7-14.4 H (BEAKER) (test code = 412) PLATELET COUNT (BEAKER) (test code 82 K/CU MM 150-450 L = 756) MEAN PLATELET VOLUME (BEAKER) 11.7 fL 9.4-12.3 (test code = 754) NUCLEATED RED BLOOD CELLS (BEAKER) 1 /100 WBC 0-0 H (test code = 413) POCT-GLUCOSE [id number] 00:23:53 Test Item Value Reference Range Interpretation Comments POC-GLUCOSE METER 110 mg/dL 70-110 : TESTED A T [facility] 6720 (BEAKER) (test code = [facility], 153) 65[address]: Geneticist/Techni bryan ID = [id number] for Ruby Ha LACTIC ACID, [id number] 21:33:54 Test Item Value Reference Range Interpretation Comments LACTATE BLOOD VENOUS 1.39 mmol/L 0.50-2.20 Specime n slightly (2) (BEAKER) (test hemolyzed code = 2872) Geneticist ID - DBPOCT-GLUCOSE [id number] 18:03:59 Test Item Value Reference Range Interpretation Comments POC-GLUCOSE METER 113 mg/dL 70-110 H : TESTED A T [facility] 6720 (BEAKER) (test code = [facility], 153) 88341: Geneticist/Techni bryan ID = [id number] for Xiomara jacey Eileen POCT-GLUCOSE [id number] 12:11:10 Test Item Value Reference Range Interpretation Comments POC-GLUCOSE METER 130 mg/dL 70-110 H : TESTED A T [facility] 6720 (BEAKER) (test code = [facility], 1538) 28182: Geneticist/Techni bryan ID = [id number] for Eileen Unger POCT-GLUCOSE [id number] 06:32:18 Test Item Value Reference Range Interpretation Comments POC-GLUCOSE METER 123 mg/dL 70-110 H : TESTED A T [facility] 6720 (BEAKER) (test code = [facility], 1538) 15331: Geneticist/Techni bryan ID = [id number] for Ruby Ha CARCINOEMBRYONIC ANTIGEN (CEA)2022-03-21 06:19:51 Test Item Value Reference Range Interpretation Comments CARCINOEMBRYONIC ANTIGEN (BEAKER) 2.5 ng/mL 0.0-5.0 (test code = 685) Geneticist ID - DBBASIC METABOLIC [id number] 06:03:11 Test Item Value Reference Range Interpretation Comments SODIUM (BEAKER) 131 meq/L 136-145 L (test code = 381) POTASSIUM (BEAKER) 2.9 meq/L 3.5-5.1 L (test code = 379) CHLORIDE (BEAKER) 97 meq/L 98-107 L (test code = 382) CO2 (BEAKER) (test 27 meq/L 22-29 code = 355) BLOOD UREA NITROGEN 17 mg/dL 7-21 (BEAKER) (test code = 354) CREATININE (BEAKER) 0.44 mg/dL 0.57-1.25 L (test code = 358) GLUCOSE RANDOM 127 mg/dL 70-105 H (BEAKER) (test code = 652) CALCIUM (BEAKER) 6.9 mg/dL 8.4-10.2 L (test code = 697) EGFR (BEAKER) (test 152 mL/min/1.73 ESTIM ATED GFR IS code = 1092) sq m NOT ACCURATE CREATININE CLEARANCE IN PREDICTING GLOMERULAR FILTRATION RATE . ESTIMATED GFR I S NOT APPLICABLE FOR DIALYSIS PATIEN TS. Geneticist ID - [id number] 06:02:43 Test Item Value Reference Range Interpretation Comments PHOSPHORUS (BEAKER) (test code = 2.9 mg/dL 2.3-4.7 604) Geneticist ID - [id number] 06:02:42 Test Item Value Reference Range Interpretation Comments MAGNESIUM (BEAKER) (test code = 1.4 mg/dL 1.6-2.6 L 627) Geneticist ID - [id number] (HEMOGRAM ONLY)2022-03-21 05:47:34 Test Item Value Reference Range Interpretation Comments WHITE BLOOD CELL COUNT (BEAKER) 5.0 K/ L 3.5-10.5 (test code = 775) RED BLOOD CELL COUNT (BEAKER) 2.54 M/ L 3.93-5.22 L (test code = 761) HEMOGLOBIN (BEAKER) (test code = 8.1 GM/DL 11.2-15.7 L 410) HEMATOCRIT (BEAKER) (test code = 24.8 % 34.1-44.9 L 411) MEAN CORPUSCULAR VOLUME (BEAKER) 97.6 fL 79.4-94.8 H (test code = 753) MEAN CORPUSCULAR HEMOGLOBIN 31.9 pg 25.6-32.2 (BEAKER) (test code = 751) MEAN CORPUSCULAR HEMOGLOBIN CONC 32.7 GM/DL 32.2-35.5 (BEAKER) (test code = 752) RED CELL DISTRIBUTION WIDTH 17.8 % 11.7-14.4 H (BEAKER) (test code = 412) PLATELET COUNT (BEAKER) (test 115 K/CU MM 150-450 L code = 756) MEAN PLATELET VOLUME (BEAKER) 11.0 fL 9.4-12.3 (test code = 754) NUCLEATED RED BLOOD CELLS 0 /100 WBC 0-0 (BEAKER) (test code = 413) POCT-GLUCOSE [id number] 00:34:42 Test Item Value Reference Range Interpretation Comments POC-GLUCOSE METER 104 mg/dL 70-110 : TESTED A T [facility] 6720 (BEAKER) (test code = [place], 1538) 49[address]: Geneticist/Techni bryan ID = [id number] for Ruby Ha POCT-GLUCOSE [id number] 17:52:27 Test Item Value Reference Range Interpretation Comments POC-GLUCOSE METER 114 mg/dL 70-110 H : TESTED A T [facility] 6720 (BEAKER) (test code = [facility], 1538) [address]: Geneticist/Techni bryan ID = [id number] for Eileen Unger POCT-GLUCOSE [id number] 12:31:44 Test Item Value Reference Range Interpretation Comments POC-GLUCOSE METER 95 mg/dL 70-110 : Verify w / Lab Draw: (BEAKER) (test code = TESTED AT [facility] 6720 1538) [facility], [address]: Geneticist/Techni bryan ID = [id number] for Eileen Olson POCT-GLUCOSE [id number] 07:51:05 Test Item Value Reference Range Interpretation Comments POC-GLUCOSE METER 96 mg/dL 70-110 : TESTED A T [facility] 6720 (BEAKER) (test code = [facility], 1538) [address]: Geneticist/Techni bryan ID = [id number] for Eileen Olson BASIC METABOLIC [id number] 07:27:52 Test Item Value Reference Range Interpretation Comments SODIUM (BEAKER) 138 meq/L 136-145 (test code = 381) POTASSIUM (BEAKER) 3.6 meq/L 3.5-5.1 (test code = 379) CHLORIDE (BEAKER) 102 meq/L 98-107 (test code = 382) CO2 (BEAKER) (test 30 meq/L 22-29 H code = 355) BLOOD UREA NITROGEN 16 mg/dL 7-21 (BEAKER) (test code = 354) CREATININE (BEAKER) 0.45 mg/dL 0.57-1.25 L (test code = 358) GLUCOSE RANDOM 109 mg/dL 70-105 H (BEAKER) (test code = 652) CALCIUM (BEAKER) 7.6 mg/dL 8.4-10.2 L (test code = 697) EGFR (BEAKER) (test 148 mL/min/1.73 ESTIM ATED GFR IS code = 1092) sq m NOT ACCURATE CREATININE CLEARANCE IN PREDICTING GLOMERULAR FILTRATION RATE . ESTIMATED GFR I S NOT APPLICABLE FOR DIALYSIS PATIEN TS. Geneticist ID - [id number] 07:26:36 Test Item Value Reference Range Interpretation Comments MAGNESIUM (BEAKER) (test code = 1.7 mg/dL 1.6-2.6 627) Geneticist ID - [id number] 07:26:36 Test Item Value Reference Range Interpretation Comments PHOSPHORUS (BEAKER) (test code = 3.0 mg/dL 2.3-4.7 604) Geneticist ID - [id number] (HEMOGRAM ONLY)2022-03-20 06:52:08 Test Item Value Reference Range Interpretation Comments WHITE BLOOD CELL COUNT (BEAKER) 5.0 K/ L 3.5-10.5 (test code = 775) RED BLOOD CELL COUNT (BEAKER) 2.79 M/ L 3.93-5.22 L (test code = 761) HEMOGLOBIN (BEAKER) (test code = 8.8 GM/DL 11.2-15.7 L 410) HEMATOCRIT (BEAKER) (test code = 26.9 % 34.1-44.9 L 411) MEAN CORPUSCULAR VOLUME (BEAKER) 96.4 fL 79.4-94.8 H (test code = 753) MEAN CORPUSCULAR HEMOGLOBIN 31.5 pg 25.6-32.2 (BEAKER) (test code = 751) MEAN CORPUSCULAR HEMOGLOBIN CONC 32.7 GM/DL 32.2-35.5 (BEAKER) (test code = 752) RED CELL DISTRIBUTION WIDTH 18.3 % 11.7-14.4 H (BEAKER) (test code = 412) PLATELET COUNT (BEAKER) (test 118 K/CU MM 150-450 L code = 756) MEAN PLATELET VOLUME (BEAKER) 10.8 fL 9.4-12.3 (test code = 754) NUCLEATED RED BLOOD CELLS 0 /100 WBC 0-0 (BEAKER) (test code = 413) CALCIUM, [id number] 06:51:10 Test Item Value Reference Range Interpretation Comments CALCIUM IONIZED (BEAKER) (test 1.07 mmol/L 1.12-1.27 L code = 698) PH, BLOOD (BEAKER) (test code = 7.47 1810) POCT-GLUCOSE [id number] 22:51:38 Test Item Value Reference Range Interpretation Comments POC-GLUCOSE METER 84 mg/dL 70-110 : TESTED A T [facility] 6720 (BEAKER) (test code = [place], 7498) [address]: Geneticist/Techni bryan ID = [id number] for MANAS SIMMS AM SARS-COV2/RT-PCR ([facility])2022-03-19 21:16:11 Test Item Value Reference Range Interpretation Comments SARS-COV2/RT-PCR (test code = Negative Negative [id number]) Negative result for this test determines that [...] the FDA, the issued EUA will be e ffective until the declaration that circumstances exist justifying the authorization of the emergency use of in vitro diagnostic tests for detection and/or diagnosis of COVID-19 is terminated under Section 564(b)(2) of the Act or the EUA is revoked under Section 564(g) of the Act.Testing was performedusing the Parks SARS-CoV-2 assay.Fact Sheet for Healthcare Providers:https://www.molecular.parks/kaylee/RT SARS-CoV-2 HCP Fact Sheet 51- 416141.pdfFact Sheet for Healthcare Patients:https://www.molecular.parks/kaylee/RT SARS-CoV-2 Patient Fact Sheet EN 51-901085N9.pdfLACTIC ACID, [id number] 15:13:37 Test Item Value Reference Range Interpretation Comments LACTATE BLOOD VENOUS 0.98 mmol/L 0.50-2.20 Specime n slightly (2) (BEAKER) (test hemolyzed code = 2872) Geneticist ID - BS(CELLAVISION MANUAL DIFF)2022-03-19 10:44:14 Test Item Value Reference Range Interpretation Comments NEUTROPHILS - REL 80 % (CELLAVISION)(BEAKER) (test code = 2816) LYMPHOCYTES - REL 10 % (CELLAVISION)(BEAKER) (test code = 2817) MONOCYTES - REL 6 % (CELLAVISION)(BEAKER) (test code = 2818) BANDS - REL (CELLAVISION)(BEAKER) 4 % 0-10 (test code = 2826) NEUTROPHILS - ABS 6.24 K/ul 1.56-6.13 H (CELLAVISION)(BEAKER) (test code = 2830) LYMPHOCYTES - ABS 0.78 K/ul 1.18-3.74 L (CELLAVISION)(BEAKER) (test code = 2831) MONOCYTES - ABS 0.47 K/uL 0.24-0.36 H (CELLAVISION)(BEAKER) (test code = 2832) BANDS - ABS (CELLAVISION)(BEAKER) 0.31 K/uL 0.00-0.80 (test code = 2840) TOTAL COUNTED (BEAKER) (test code 100 = 1351) MANUAL NRBC PER 100 CELLS (BEAKER) 1 /100 WBC 0-0 H (test code = 1353) SMUDGE CELLS (BEAKER) (test code = Present 1371) GIANT PLATELETS (BEAKER) (test Present code = 313) POLYCHROMATOPHILLIC RBCS(BEAKER) 1+ few (test code = 478) ANISOCYTOSIS (BEAKER) (test code = 1+ few 961) MICROCYTES (BEAKER) (test code = 1+ few 965) PLATELET CONCENTRATION Decreased (CELLAVISION)(BEAKER) (test code = 3438) Geneticist ID - José Luis Castillo comments: Slide comments:CBC W/PLT COUNT & AUTO [id number] 10:44:13 Test Item Value Reference Range Interpretation Comments WHITE BLOOD CELL COUNT (BEAKER) 7.8 K/ L 3.5-10.5 (test code = 775) RED BLOOD CELL COUNT (BEAKER) 3.21 M/ L 3.93-5.22 L (test code = 761) HEMOGLOBIN (BEAKER) (test code = 10.0 GM/DL 11.2-15.7 L 410) HEMATOCRIT (BEAKER) (test code = 30.7 % 34.1-44.9 L 411) MEAN CORPUSCULAR VOLUME (BEAKER) 95.6 fL 79.4-94.8 H (test code = 753) MEAN CORPUSCULAR HEMOGLOBIN 31.2 pg 25.6-32.2 (BEAKER) (test code = 751) MEAN CORPUSCULAR HEMOGLOBIN CONC 32.6 GM/DL 32.2-35.5 (BEAKER) (test code = 752) RED CELL DISTRIBUTION WIDTH 18.6 % 11.7-14.4 H (BEAKER) (test code = 412) PLATELET COUNT (BEAKER) (test 103 K/CU MM 150-450 L code = 756) MEAN PLATELET VOLUME (BEAKER) 10.6 fL 9.4-12.3 (test code = 754) NUCLEATED RED BLOOD CELLS 1 /100 WBC 0-0 H (BEAKER) (test code = 413) SCREEN, [id number] 09:22:00 Test Item Value Reference Range Interpretation Comments TEST URINE (BEAKER) (test Negative code = 583) [id number] 08:22:57 Test Item Value Reference Range Interpretation Comments TRIGLYCERIDES (BEAKER) (test code = 170 mg/dL 540) TRIGLYCERIDE REFERENCE RANGELow Risk <150Borderline Risk 150-199High Risk 200-499Very High Risk>=500Operator ID - ALO EPATIC FUNCTION PANEL 2022-03-19 05:15:07 Test Item Value Reference Range Interpretation Comments TOTAL PROTEIN (BEAKER) (test code = 5.7 gm/dL 6.0-8.3 L 770) ALBUMIN (BEAKER) (test code = 1145) 2.6 g/dL 3.5-5.0 L BILIRUBIN TOTAL (BEAKER) (test code 0.7 mg/dL 0.2-1.2 = 377) BILIRUBIN DIRECT (BEAKER) (test 0.3 mg/dL 0.1-0.5 code = 706) ALKALINE PHOSPHATASE (BEAKER) (test 97 U/L 40-150 code = 346) AST (SGOT) (BEAKER) (test code = 48 U/L 5-34 H 353) ALT (SGPT) (BEAKER) (test code = 18 U/L 6-55 347) Geneticist ID - DENISHA [id number] 05:15:06 Test Item Value Reference Range Interpretation Comments MAGNESIUM (BEAKER) (test code = 1.5 mg/dL 1.6-2.6 L 627) Geneticist ID - DENISHA [id number] 05:15:06 Test Item Value Reference Range Interpretation Comments PHOSPHORUS (BEAKER) (test code = 2.9 mg/dL 2.3-4.7 604) Geneticist ID - DENISHA GBASIC METABOLIC [id number] 05:15:05 Test Item Value Reference Range Interpretation Comments SODIUM (BEAKER) 142 meq/L 136-145 (test code = 381) POTASSIUM (BEAKER) 3.2 meq/L 3.5-5.1 L (test code = 379) CHLORIDE (BEAKER) 103 meq/L 98-107 (test code = 382) CO2 (BEAKER) (test 30 meq/L 22-29 H code = 355) BLOOD UREA NITROGEN 16 mg/dL 7-21 (BEAKER) (test code = 354) CREATININE (BEAKER) 0.45 mg/dL 0.57-1.25 L (test code = 358) GLUCOSE RANDOM 96 mg/dL 70-105 (BEAKER) (test code = 652) CALCIUM (BEAKER) 8.3 mg/dL 8.4-10.2 L (test code = 697) EGFR (BEAKER) (test 148 mL/min/1.73 ESTIM ATED GFR IS code = 1092) sq m NOT ACCURATE CREATININE CLEARANCE IN PREDICTING GLOMERULAR FILTRATION RATE . ESTIMATED GFR I S NOT APPLICABLE FOR DIALYSIS PATIEN TS. Geneticist ID - DENISHA GHEPATITIS C [id number] 17:20:09 Test Item Value Reference Range Interpretation Comments HEPATITIS C ANTIBODY (BEAKER) Nonreactive Nonreactive (test code = 367) Geneticist ID - DBHEPATITIS A ANTIBODY, [id number] 17:20:09 Test Item Value Reference Range Interpretation Comments HEPATITIS A IGM ANTIBODY (BEAKER) Nonreactive Nonreactive (test code = 498) Geneticist ID - DBHEPATITIS B CORE ANTIBODY, [id number] 17:20:09 Test Item Value Reference Range Interpretation Comments HEPATITIS B CORE TOTAL ANTIBODY Nonreactive Nonreactive (BEAKER) (test code = 497) Geneticist ID - DBHEPATITIS B SURFACE [id number] 17:20:04 Test Item Value Reference Range Interpretation Comments HEPATITIS B SURFACE ANTIGEN (2) Nonreactive Nonreactive (BEAKER) (test code = 2585) Specimen is considered negative for HBsAg.HEPATITIS B SURFACE [id number] 17:20:04 Test Item Value Reference Range Interpretation Comments HEPATITIS B SURFACE ANTIBODY 408.7 mIU/mL <8.0 H (BEAKER) (test code = 647) Geneticist ID - DBTISSUE [id number] 17:14:04Surgical Pathology Report Case: [id number] Authorizing Provider: Alyssa Tamez MD Collected: 08/04/2021 08:32 AM Ordering Location: [facility] Received: 08/04/2021 10:02 AM SERVICES Pathologist: Lana Hui MD Specimen: Stomach, PARTIAL GASTRECTOMY STOMACH, PARTIAL GASTRECTOMY: - A PORTION OF GASTRIC BODY WITH NO SPECIFIC PATHOLOGIC CHANGES Signing Pathologist Direct Phone Line: [phone] signed by Lana Hiu MD on 08/10/2021 at 5:14 PMMorbid obesity, [...] reveal a abbott-pink, focally erythematous mucosa that displaysnormal rugal folds. No discrete lesions are identified. [facility] sections are submitted in A1 -A2.SARINA Ochoa, HT ([facility])POCT-GLUCOSE [id number] 08:05:23 Test Item Value Reference Range Interpretation Comments POC-GLUCOSE METER 106 mg/dL 70-110 : TESTED A T [facility] 6720 (BEAKER) (test code = [facility], 1538) 75479: Geneticist/Techni bryan ID = [id number] for PIERCE PICKETT NOELLE POCT-GLUCOSE [id number] 21:44:33 Test Item Value Reference Range Interpretation Comments POC-GLUCOSE METER 113 mg/dL 70-110 H : TESTED A T [facility] 6720 (BEAKER) (test code = [facility], 1538) 93449: Geneticist/Techni bryan ID = [id number] for DA MARTELL LÓPEZA POCT-GLUCOSE [id number] 16:59:35 Test Item Value Reference Range Interpretation Comments POC-GLUCOSE METER 151 mg/dL 70-110 H : TESTED A T [facility] 6720 (BEAKER) (test code = [facility], 1538) 34539: Geneticist/Techni bryan ID = [id number] for An toine, Peggy POCT-GLUCOSE [id number] 13:26:55 Test Item Value Reference Range Interpretation Comments POC-GLUCOSE METER 169 mg/dL 70-110 H : TESTED A T [facility] 6720 (BEAKER) (test code = [facility], 1538) 72183: Geneticist/Techni bryan ID = [id number] for An toine, Peggy POCT-GLUCOSE [id number] 12:17:26 Test Item Value Reference Range Interpretation Comments POC-GLUCOSE METER 161 mg/dL 70-110 H : TESTED A T [facility] 6720 (BEAKER) (test code = [facility], 1538) 70017: Geneticist/Techni bryan ID = [id number] for SUNG MARIE URINALYSIS W/ REFLEX URINE [id number] 08:05:03 Test Item Value Reference Range Interpretation [...] = 1521) SOURCE(BEAKER) (test code = 2795) Geneticist ID - [auto]Geneticist ID - techSARS-COV2/RT-PCR ([facility]) 2021 23:45:05 Test Item Value Reference Range Interpretation Comments SARS-COV2/RT-PCR (test code = Negative Negative [id number]) Negative result for this test determines that [...] the Parks SARS-CoV-2 assay.Fact Sheet for Healthcare Providers:https://www.[employer].Photometics/kaylee/RT SARS-CoV-2 HCP Fact Sheet 51- 110915.pdfFact Sheet for Healthcare Patients:https://www.[employer]/kaylee/RT SARS-CoV-2 Patient Fact Sheet EN 51-422599O1.[id number] 12:32:40 Test Item Value Reference Range Interpretation Comments CREATININE (BEAKER) 0.61 mg/dL 0.57-1.25 (test code = 358) EGFR (BEAKER) (test 104 mL/min/1.73 ESTIM ATED GFR IS code = 1092) sq m NOT ACCURATE CREATININE CLEARANCE IN PREDICTING GLOMERULAR FILTRATION RATE . ESTIMATED GFR I S NOT APPLICABLE FOR DIALYSIS PATIEN TS. Geneticist ID - DOMINICOBDULIA [id number] 12:32:40 Test Item Value Reference Range Interpretation Comments GLUCOSE RANDOM (BEAKER) (test code 147 mg/dL 70-105 H = 652) Geneticist ID - DOMINICOBDULIA [id number] 12:32:39 Test Item Value Reference Range Interpretation Comments BLOOD UREA NITROGEN (BEAKER) (test 11 mg/dL 7-21 code = 354) Geneticist ID - DOMINICOBDULIA [id number] 12:32:39 Test Item Value Reference Range Interpretation Comments SODIUM (BEAKER) (test code = 381) 142 meq/L 136-145 POTASSIUM (BEAKER) (test code = 4.0 meq/L 3.5-5.1 379) CHLORIDE (BEAKER) (test code = 382) 106 meq/L 98-107 CO2 (BEAKER) (test code = 355) 27 meq/L 22-29 Geneticist ID - DOMINICOBDULIA [id number] 12:13:22 Test Item Value Reference Range Interpretation Comments HEMOGLOBIN (BEAKER) (test code = 11.8 GM/DL 11.2-15.7 410) Geneticist ID - [id number]-COV2/RT-PCR ([facility])2020-05-12 19:10:00 Test Item Value Reference Range Interpretation Comments SARS-COV2/RT-PCR (test code = Positive Not Detected, Negative A A [id number]) SARS-COV-2 PERFORMING LAB [facility] (test code = 9796332) Results are for the detection of SARS-CoV-2 [...] 564(g) of the Act.Fact Sheet for Healthcare Providers:https://www.Recruit.net.com/sites/default/files/product/d ocuments/Qmwa_Vfhzn_HJ_Qmytbovmt_Jkuh_BOFI-HkV-8.pdfFact Sheet for Healthcare Patients:https://www.Vivo.Colibria/sites/default/files/product/documents/Fact_Sheet_Patients_Lyra_SARS-CoV -2.pdfPerforming Laboratory:[facility] [place] [address]
[2022-03-25] MEDS ORDERED: ACETAMINOPHEN 325 MG TABLET PO PRN (14:20)
[2022-03-25] MEDS ORDERED: HYDROCODONE/APAP 5/325 MG TAB PO PRN ×2 (14:35→14:42)
[2022-03-25] MEDS ORDERED: IPRATROPIUM BROM 0.5MG/2.5ML NEB PRN (14:36)
[2022-03-25] MEDS ORDERED: ALBUTEROL 2.5 MG/3 ML NEB SOL NEB PRN (14:37)
[2022-03-25] MEDS ORDERED: MAGIC MOUTHWASH 180 ML BTL PO PRN (14:39)
[2022-03-25] MEDS ORDERED: ONDANSETRON 4 MG (ODT) TAB PO PRN (14:40)
[2022-03-25] MEDS ORDERED: TRAMADOL HCL 50 MG TAB PO PRN (14:41)
[2022-03-25 16:08] LABS: Urine Appearance Clear (Clear); Urine Bilirubin Negative (Negative); Urine Blood Negative (Negative); Urine Color Yellow (Yellow); Urine Glucose Negative (Negative); Urine Protein Negative (Negative); Urine Urobilinogen 0.2 mg/dL (0.2-1.0); Urine pH 5.5 (5.0-7.0)
[2022-03-25 16:12] LABS: Urine Microscopic Reflex ORDER UMIC
[2022-03-25 16:18] LABS: Urine Bacteria 20-50 /HPF (<20); Urine RBC <5 /HPF (NONE SEEN)
[2022-03-25 16:19] LABS: Urine Amorphous Sediment 2+ /HPF (NONE SEEN); Urine Coarse Granular Casts 0-5 /LPF (NONE SEEN); Urine Mucus 3+ /HPF (NONE SEEN)
[2022-03-25 16:36] VITALS: BMI 30.8
[2022-03-25] MEDS ORDERED: METRONIDAZOLE 500mg IVPB 500 MG/100 ML BAG IV SCH (17:00)
[2022-03-25] MEDS: METRONIDAZOLE 500mg IVPB 500 MG/100 ML BAG IV SCH (17:22)
[2022-03-25] MEDS: GABAPENTIN 300 MG CAP PO SCH (20:09)
[2022-03-25] MEDS: APIXABAN 5 MG TABLET PO SCH (20:09)
[2022-03-25] MEDS: SODIUM CHLORIDE 0.9% 10ML INJ IV SCH (20:09)
[2022-03-25] MEDS: MUPIROCIN 2% OINT 22GM TUBE TOP SCH (20:09)
[2022-03-25] MEDS: FIDAXOMICIN 200 MG TABLET PO SCH (20:09)
[2022-03-25] MEDS ORDERED: NA CHLORIDE 0.9% 250 ML ONE (22:15)
[2022-03-26] MEDS: METRONIDAZOLE 500mg IVPB 500 MG/100 ML BAG IV SCH ×3 (00:07→17:17)
[2022-03-26 05:15] LABS: Hematocrit 22.8 % (36.0-45.0); Lymphocytes % 17.6 % (15.3-44.8); MPV 9.3 fL (7.6-11.3); RBC Red Blood Cell Count 2.51 M/uL (3.86-4.86)
[2022-03-26 05:37] LABS: Albumin 1.5 g/dL (3.4-5.0); Prealbumin 11.7 mg/dL (20-40)
[2022-03-26 05:38] LABS: Magnesium 1.2 mg/dL (1.8-2.4); Potassium 2.7 mmol/L (3.5-5.1)
[2022-03-26] MEDS: POTASSIUM CL SA 10 MEQ TAB PO ONE ×2 (05:43→06:05)
[2022-03-26] MEDS ORDERED: FUROSEMIDE 20 MG TABLET PO ONE ×2 (05:43→07:11)
[2022-03-26] MEDS ORDERED: MAGNESIUM SULFATE 1 gm IVPB 1 GM/100 ML BAG IV ONE (05:45)
[2022-03-26] MEDS ORDERED: POTASSIUM CL SA 10 MEQ TAB PO ONE (07:11)
[2022-03-26] MEDS: MUPIROCIN 2% OINT 22GM TUBE TOP SCH ×2 (07:15→19:44)
[2022-03-26] MEDS: SODIUM CHLORIDE 0.9% 10ML INJ IV SCH ×2 (07:25→19:46)
[2022-03-26] MEDS: MAGNESIUM OXIDE 400 MG TAB PO SCH ×2 (07:46→19:46)
[2022-03-26] MEDS: APIXABAN 5 MG TABLET PO SCH ×2 (07:46→19:45)
[2022-03-26] MEDS: FIDAXOMICIN 200 MG TABLET PO SCH ×2 (07:46→19:48)
[2022-03-26] MEDS: GABAPENTIN 300 MG CAP PO SCH ×3 (07:47→19:45)
[2022-03-26] MEDS ORDERED: POTASSIUM CL 40 MEQ in NA CHLORIDE 0.9% 500 ML IV SCH (08:00)
[2022-03-26] MEDS ORDERED: FUROSEMIDE 20 MG/ 2ML VIAL IV ONE (08:00)
[2022-03-26] MEDS ORDERED: POTASSIUM 25 MEQ EFFERV TAB PO ONE (08:00)
--- NOTE | 2022-03-26 15:58 | R.HP ---
HISTORY AND PHYSICAL FACILITY: [facility] ENCOUNTER DATE AND TIME: 03/26/2022 15:52 (CDT) MR#: [id number] NAME OMERO ESPANA ADDRESS: [address] [place] [address]: [place] [id number] PHONE: DATE OF : 1970 AGE: 51 SSN# [id number] GENDER: Female DEXTERITY Unknown dexterity MARITAL STATUS Single (Never ) RACE White PRE-HOSPITAL LIVING SETTING 01 - Home (private home/apt. board/care, assisted living, longterm, transitional living) PRE-HOSPITAL LIVING WITH Family/Relatives ENCOUNTER PHYSICIAN: Dr. Clint Sandoval M.D. REFERRING DOCTOR: ajmes Belcher DATE OF ADMISSION: 03/25/2022 13:24 (CDT) REFERRING FACILITY [facility] HOME TYPE AND DETAILS: Type of home: single family house # of levels in the residence: 1 # of steps within the residence: 0 # of steps to enter the residence: 2 ONSET DATE: 03/19/2022 PRIMARY DIAGNOSIS-RELATED SURGERIES: None SECONDARY/COMORBID DIAGNOSES (TIERED): - Tier 2 Enterocolitis due to Clostridium difficile (A04.7) HISTORY OF PRESENT ILLNESS (HPI): Pt. is a 51 yo white female. On 03/19/2022 she was admitted to [facility] with diagnosis C20 Malignant Neoplasm of Rectum. Her impairment category is Medically Complex Conditions 17 - Neoplasms (17.2). Pre-morbidly, Pt. was independent/mod-I in Locomotion, Balance, and Self-Care; and she had good Safet y Awareness, Endurance, Sphincter Control, Transfers Control, and Balance. Currently, she has deficits of Locomotion, Safety Awareness, Balance, Transfers Control, Sphincter Co ntrol, Endurance, and Self-Care. Pt. is now referred to [facility] for acute in-patient rehabilitation in order to maximize patient's functional independence in activities of daily living, strength, ROM, and mobi lity. Patient has realistic goal of being discharged at assistance level 6-Margarito to reside at Home with Fam hannah/Relatives. MEDICATION ALLERGIES: No Known Drug Allergies (NKDA) ENVIRONMENTAL ALLERGIES: - Substance Allergies None Known - Other Allergies None Known PAST MEDICAL HISTORY: Enterocolitis due to Clostridium difficile (A04.7) Obseity Sleep Apnea Type 2 Diabetes Hypertension DVT Stage 4 Rectal Cancer PAST SURGICAL HISTORY: Gastric Sleeve Left Sided Port Appendectomy C Section Cholecystectomy SOCIAL HISTORY: - Home Living Family/Relatives REVIEW OF SYSTEMS: - Gen No Chills Fatigue No Fever - Eyes No Double Vision No itchiness - ENMT Difficulty Swallowing - CVS No Chest Discomfort No Chest Pain Fatigue No Weight Gain - Resp No Cough No Shortness of Breath - GI Continent No Abdominal Pain No Constipation No Diarrhea - Continent No Kidney Pain No Painful Urination No Urinary Urgency - MSK No Joint Pain No Muscle Cramps Stiffness - Skin No Itching No Rash No Suspicious Lesions - Neuro Coordination Difficulty No Difficulty with Concentration No Memory Loss No Seizures Weakness - Psych No Anxiety No Depression No HIV Exposure No Persistent Infections No Seasonal Allergies - Endo No Cold/Heat Intolerance No Excessive Hunger No Excessive Thirst No Excessive Urination PHYSICAL EXAM - Gen Alert and awake Lying in bed No apparent distress Oriented to: person, time, and place - Skin No breakdown No abnormalities - Eyes No abnormalities - ENMT No abnormalities - Neck No stiffness - CVS RRR - Chest No abnormalities - Resp Clear to auscultation - Abd + bowel sounds - GI Soft Deferred - No abnormalities - Ext No significant edema - MSK 4+/5 weakness in both lower extremities. - Neuro 4/5 strength bilaterally upper and lower extremities. - Psych No abnormalities VITAL SIGNS Temperature: 97.8 F SBP/DBP: 127/63 Pulse: 67 Resp: 16 NURSING: - Shower allowing shower - PICC Line care per protocol PRECAUTIONS: - Fall Precaution Bed alarm TABS alarm Wheel chair alarm - Aspiration Precaution HOB (head of bed) elevated above 30 degrees while receiving tube feed No straws - DVT Risk due to restricted mobility and age - Bleeding Risk Eliquis - Isolation Precaution Contact precaution - Incontinence Bladder Incontinence Bowel Incontinence - Skin Breakdown Risk due to restricted mobility and age ACTIVITIES OOB only with supervision QI SCORES: - Self-Care A. Eating 04-Supervision or touching assistance B. Oral hygiene 04-Supervision or touching assistance C. Toileting hygiene 04-Supervision or touching assistance E. Shower/bathe self 04-Supervision or touching assistance F. Upper body dressing 04-Supervision or touching assistance G. Lower body dressing 04-Supervision or touching assistance H. Putting on/taking off footwear 04-Supervision or touching assistance - Mobility A. Roll left and right 88-Not attempted due to medical condition or safety concerns B. Sit to lying 04-Supervision or touching assistance C. Lying to sitting on side of bed 03-Partial/moderate assistance D. Sit to stand 03-Partial/moderate assistance E. Chair/qik-ys-frtls transfer 03-Partial/moderate assistance F. Toilet transfer 03-Partial/moderate assistance G. Car transfer 03-Partial/moderate assistance I. Walk 10 feet 88-Not attempted due to medical condition or safety concerns J. Walk 50 feet with two turns 88-Not attempted due to medical condition or safety concerns K. Walk 150 feet 88-Not attempted due to medical condition or safety concerns L. Walking 10 feet on uneven surfaces 88-Not attempted due to medical condition or safety concerns M. 1 step (curb) 88-Not attempted due to medical condition or safety concerns N. 4 steps 88-Not attempted due to medical condition or safety concerns O. 12 steps 88-Not attempted due to medical condition or safety concerns P. Picking up object 88-Not attempted due to medical condition or safety concerns R. Wheel 50 feet with two turns 88-Not attempted due to medical condition or safety concerns S. Wheel 150 feet 88-Not attempted due to medical condition or safety concerns - Bladder and Bowel Bladder continence 3-Incontinent daily Bowel continence 2-Frequently incontinent - Endurance Poor - Balance Poor - Safety Awareness Fair CURRENT FUNC. DEFICITS: Self-Care, Endurance, Balance, Safety Awareness, and Mobility MEDICATIONS: - Other See attached MAR (Medication Administration Record) ASSESSMENT: Pt. is a 51 yo white female.On 03/19/2022 she was admitted to [facility] with diagnos is C20 Malignant Neoplasm of Rectum.Her impairment category is Medically Complex Conditions 17 - Romeo plasms (17.2).Pre-morbidly, Pt. was independent/mod-I in Locomotion, Balance, and Self-Care; and she had good Safety Awareness, Endurance, Sphincter Control, Transfers Control, and Balance.Currently, sh e has deficits of Locomotion, Safety Awareness, Balance, Transfers Control, Sphincter Control, Endura nce, and Self-Care.Pt. is now referred to [facility] for acute in-patient reha bilitation in order to maximize patient's functional independence in activities of daily living, stre ngth, ROM, and mobility.- Rehab Goal Patient has realistic goal of being discharged at assistance level 6-Margarito to reside at Home with Fam hannah/Relatives. - Physical Therapy Gait dysfunction - to improve, our physical therapists will perform initial evaluation of pt's status upon admission and devise an individualized program for Gait Training, and Wheel Chair mobility Inability to transfer - to improve, our physical therapists will perform initial evaluation of pt's s tatus upon admission and devise an individualized program for Bed mobility Need for home safety evaluation - to improve, our physical therapists will perform initial evaluation of pt's status upon admission and devise an individualized program for Home Evaluation Need in caregiver upon discharge - to improve, our physical therapists will perform initial evaluatio n of pt's status upon admission and devise an individualized program for Caregiver Training New precaution - to improve, our physical therapists will perform initial evaluation of pt's status u shelley admission and devise an individualized program for Patient precaution education Edema - to improve, our physical therapists will perform initial evaluation of pt's status upon admi ssion and devise an individualized program for Elevation Training, and Lymphedema Therapy Poor balance - to improve, our physical therapists will perform initial evaluation of pt's status upo n admission and devise an individualized program for Balance Training Poor endurance - to improve, our physical therapists will perform initial evaluation of pt's status u shelley admission and devise an individualized program for Endurance Training Weakness - to improve, our physical therapists will perform initial evaluation of pt's status upon ad mission and devise an individualized program for Aquatic Therapy, Neuromuscular Reeducation, and Stre ngthening Achieving independence - to improve, our physical therapists will perform initial evaluation of pt's status upon admission and devise an individualized program for Community Reintegration Activities - Occupational Therapy ADL deficits - to improve, our occupation therapists will perform initial evaluation of pt's status u shelley admission and devise an individualized program for Bathing, Bed mobility, Community Reintegration , Cooking, Dressing, Eating, Fine Motor Skills, Grooming, Homemaking, Kitchen Mobility, Laundry, Laila ent Education, Safety Awareness, Splinting - Positioning, Transfers(Toilet, Tub, Shower), and Wheel C hair Management Need for senior care assistant - to improve, our occupation therapists will perform initial evaluation of pt's s tatus upon admission and devise an individualized program for Caregiver Training Weakness - to improve, our occupation therapists will perform initial evaluation of pt's status upon admission and devise an individualized program for Aquatic Therapy, Balance, Endurance, UE ROM, and U E strengthening MEDICAL PLAN: - Diet Type Start Regular - Diet - Liquid Texture Start Regular - Tube Feed Start N/A - Incontinence Bladder Incontinence Bowel Incontinence - Bleeding Risk Eliquis - PICC Line care per protocol - DVT Risk due to restricted mobility and age - Skin Breakdown Risk due to restricted mobility and age - Aspiration Precaution HOB (head of bed) elevated above 30 degrees while receiving tube feed No straws - Isolation Precaution Contact precaution - Fall Precaution Bed alarm TABS alarm Wheel chair alarm - Other See attached MAR (Medication Administration Record) - Diet - Solid Texture Regular - Shower shower DISCHARGE PLAN: - Estimated Length of Stay (days) 13. - Consensus on plan Discharge plan has been discussed with primary caregiver. Patient/Family is in agreement with the milton n. Primary caregiver is in agreement with the plan. - Patient/Family Goals Return home independently. - Potential barriers to discharge Any lines must be removed or patient/caregiver needs to be educated on line care. - Planned Living Setting Upon Discharge Home, to live with Family/Relatives. Transitional Living. SIGNATURE PANEL: (CDT)
--- NOTE | 2022-03-26 16:00 | PAPE ---
POST ADMISSION PHYSICIAN EVALUATION PATIENT: [facility] MR# [id number] REFERRING DOCTOR james Belcher EVALUATION DATE AND TIME 03/26/2022 15:58 (CDT) NAME OMERO ESPANA DATE OF 1970 AGE 51 PHONE N# [id number] GENDER female EVALUATING PHYSICIAN Dr. Clint Sandoval M.D. ADMISSION DIAGNOSIS: C20 Malignant Neoplasm of Rectum ONSET DATE 03/19/2022 SECONDARY/COMORBID DIAGNOSES TIERED: - Tier 2 Enterocolitis due to Clostridium difficile (A04.7) POST-ADMISSION FUNCTIONAL/MEDICAL STATUS: - Bladder Same accident frequency: 7-Ind - No accidents in the past 7 days - Bowel Same accident frequency: 7-Ind - No accidents in the past 7 days - Walking Same score based on distance walked: 0(N/A) - Wheelchair Same score based on distance traveled: 0(N/A) STATUS CHANGE EVALUATION: No change in Functional or Medical Status is identified compared with Pre-Admission screening. PATIENT NEEDS CLOSE MEDICAL SUPERVISION BY A REHABILITATION PHYSICIAN FOR: Coordination of Treatment Team Medical and Co-Morbidity Management Respiratory/Airway Management Wound Care PATIENT REQUIRES 24X7 REHAB NURSING FOR MEDICAL AND FUNCTIONAL MGT. OF THE FOLLOWING DEFICITS: Disease Management Medication Management Patient requires 24x7 Rehabilitation Nursing for: Pain Issues, Identifying and preventing risk factor s, Monitoring and reporting current medical conditions, Assisting with ambulation and transfer, Guillermina ting with all ADL-s, Teaching patients about disease process and medications, Family teaching, Provid ing safe environment, Bowel and Bladder Issues, Skin Integrity, and Medication Management Patient/Family Education Providing Safe Environment Respiratory/Airway Management Skin Integrity PATIENT REQUIRES INTENSIVE, COORDINATED INTERDISCIPLINARY APPROACH TO REHAB: Arranging Home Equipment/Services Discharge Planning Family Intervention/Training Patient needs Dietary and Nutrition Services for: Adequate Nutrition, Nutritional Supplements, and Nu tritional Education Patient needs Cone Picker and/or Case Management for: Discharge Planning, Arranging Home Equipmen t or Services, and Family Interventions Cone Picker/Case Management LIST OF IDENTIFIED AND POTENTIAL PROBLEMS: Alteration in air exchange Alteration in leisure activities Aspiration, Actual or Potential Bladder, Incontinence Bowel, Incontinence Falls, Actual or Potential Infection, Actual or Potential Mobility Impaired Pain, Alteration in Comfort Self Care Deficit Skin Integrity, Actual or Potential Urinary Tract Infection (UTI), Actual or Potential RISK FOR COMPLICATIONS - Aspiration Monitor for overt s/s of aspiration. - DVT Active and Passive ROM exercises. Assist patient with frequent position changes. Elevate BLE. - Skin Breakdown Encourage ambulation as tolerated. Repositioning q 2 hours. Use of pillows or foam wedges while in be d. - Pain Anticipate the need for pain medication for optimal pain managment. Assist patient with frequent posi tion changes at least every 2 hours. Administer prescribed pain medication as needed. Education patie nt on relaxation and deep breathing techniques. - Stroke Monitor and maintain patient pain level. Monitor patient blood pressure. - Falls Assess for medication side effects. Maintain call light within patient reach for easy access to nursi ng assistance. Provide assistance getting out of bed and with ambulation. Provide assistive devices. INTERVENTIONS - Pain Monitor and treat with prescribed pain medications. Non pharmacological pain management. Monitor for headaches. - Deep Vein Thrombosis Positioning and Exercise. Administer medications and monitor for effectiveness. Comfort measures: com pression stocking , warm compress. LE Elevation. Maintain pt PICC line. - Malnutrition Continue TPN until diet is advanced. - Neuropathy Administer medications and monitor for effectiveness. Safety. Education. - C Diff Isolation precautions. Administer IV medications and monitor for effectivness. Monitor GI symptoms. PATIENT COULD BE AT RISK FOR COMPLICATIONS FROM ADVERSE MEDICAL CONDITIONS DUE TO HIS/HER COMORBIDITI ES AND THE RIGORS OF THE INTENSIVE REHABILLITATION PROGRAM. METHODS OR INTERVENTIONS TO AVOID COMPLIC ATIONS INCLUDE: - Bleeding Assess lab values and manage abnormalities. Nursing to teach precautions for anti-coagulation therapy . Wound to be assessed every shift. - Infection Clinical staff to assess and manage the signs and symptoms of infection including fever, redness, war mth, etc. - Urinary Tract Infection - Falls Patient will be evaluated for Fall Precautions and will be placed on Fall Precautions as indicated pe r protocol. - Skin Breakdown Nursing will assess skin daily using assessment tool and will place on Skin Breakdown Precautions as indicated per protocol. - Pain Clinical staff may employ non-medication methods such as massage, distraction, decrease stimulus, etc . as needed. Clinical staff will assess patient's pain level every shift per protocol to assess and e nsure pain management effectiveness. Medications will be given and the pain level re-assessed. PRELIMINARY PLAN OF CARE: - Physical Therapy Patient needs Physical Therapy for a daily minimum of 1.5 hours at least 5 out of 7 days, to improve: Mobility, Strengthening, Transfers, Stretching, ROM, Endurance, Ability to manage stairs, Gait, and Balance. - Speech Therapy Patient needs Speech Therapy for a daily minimum of 0.5 hours at least 5 out of 7 days, to improve: S wallowing, Cognition, Language Skills, and Compensatory Strategies. - Rehabilitation Nursing Patient requires 24x7 Rehabilitation Nursing for: Pain Issues, Identifying and preventing risk factor s, Monitoring and reporting current medical conditions, Assisting with ambulation and transfer, Guillermina ting with all ADL-s, Teaching patients about disease process and medications, Family teaching, Provid ing safe environment, Bowel and Bladder Issues, Skin Integrity, and Medication Management. Patient needs Cone Picker and/or Case Management for: Discharge Planning, Arranging Home Equipmen t or Services, and Family Interventions. - Dietary and Nutrition Services Patient needs Dietary and Nutrition Services for: Adequate Nutrition, Nutritional Supplements, and Nu tritional Education. - Occupational Therapy Patient needs Occupational Therapy for a daily minimum of 1.5 hours at least 5 out of 7 days, to impr ove Activities of Daily Living, including: Eating, Grooming, Bathing, Dressing, Toileting, Toilet Tra nsfers, Community Reintegration, Higher functional activities, Adaptive Equipment, Splinting, Househo ld Tasks, and Other activities as determined. QI SCORES: - Self-Care A. Eating 04-Supervision or touching assistance B. Oral hygiene 04-Supervision or touching assistance C. Toileting hygiene 04-Supervision or touching assistance E. Shower/bathe self 04-Supervision or touching assistance F. Upper body dressing 04-Supervision or touching assistance G. Lower body dressing 04-Supervision or touching assistance H. Putting on/taking off footwear 04-Supervision or touching assistance - Mobility A. Roll left and right 88-Not attempted due to medical condition or safety concerns B. Sit to lying 04-Supervision or touching assistance C. Lying to sitting on side of bed 03-Partial/moderate assistance D. Sit to stand 03-Partial/moderate assistance E. Chair/lyh-yh-lfjrb transfer 03-Partial/moderate assistance F. Toilet transfer 03-Partial/moderate assistance G. Car transfer 03-Partial/moderate assistance I. Walk 10 feet 88-Not attempted due to medical condition or safety concerns J. Walk 50 feet with two turns 88-Not attempted due to medical condition or safety concerns K. Walk 150 feet 88-Not attempted due to medical condition or safety concerns L. Walking 10 feet on uneven surfaces 88-Not attempted due to medical condition or safety concerns M. 1 step (curb) 88-Not attempted due to medical condition or safety concerns N. 4 steps 88-Not attempted due to medical condition or safety concerns O. 12 steps 88-Not attempted due to medical condition or safety concerns P. Picking up object 88-Not attempted due to medical condition or safety concerns R. Wheel 50 feet with two turns 88-Not attempted due to medical condition or safety concerns S. Wheel 150 feet 88-Not attempted due to medical condition or safety concerns - Bladder and Bowel Bladder continence 3-Incontinent daily Bowel continence 2-Frequently incontinent - Endurance Poor - Balance Poor - Safety Awareness Fair POTENTIAL FUNCTIONAL GOALS FOR PATIENT TO ACHIEVE BY DISCHARGE: - Safety Precaution Patient will remain free from falls or injury at time of discharge. - Bed Mobility Patient will perform bed mobility at 4-Vanna level of assistance. - Transfers Patient will complete transfers from bed to chair at 4-Vanna level of assistance. - Mobility Patient will ambulate 150 ft with 4-Vanna level of assistance with RW. PATIENT REHAB POTENTIAL Flash ESPANA is able and expected to receive 3 hours of individualized therapy daily on at least 5 of zohaib ry 7 days Flash ESPANA's prognosis for significant practical improvement within a reasonable period of time appears Good Expected level of measurable improvement will be of a practical value to Flash ESPANA's functional capaci ty or adaptations to impairments Has a viable Discharge Plan Medically appropriate; condition is sufficiently stable to participate in intensive rehab program DISCHARGE PLAN: - Estimated Length of Stay (days) 13. - Consensus on plan Discharge plan has been discussed with primary caregiver. Patient/Family is in agreement with the milton n. Primary caregiver is in agreement with the plan. - Patient/Family Goals Return home independently. - Potential barriers to discharge Any lines must be removed or patient/caregiver needs to be educated on line care. - Planned Living Setting Upon Discharge Home, to live with Family/Relatives. Transitional Living. CONCLUSION ON REHABILITATION NECESSITY: I have evaluated patient's pre-admission functional status and, comparing it to the patient's post-ad mission functional status now, I conclude that the pre-admission assessment was accurate. Patient's c ondition on admission supports the medical necessity of admission to IR[facility]. It is safe to proceed with patient's therapy program. SIGNATURE PANEL: (CDT)
[2022-03-26] MEDS: CRANBERRY FRUIT EXTRACT 400 MG CAP PO SCH (19:44)
[2022-03-26] MEDS: FERROUS SULFATE 325 MG TAB PO SCH (19:45)
[2022-03-26] MEDS: POTASSIUM CL SA 10 MEQ TAB PO SCH (19:45)
[2022-03-26] MEDS: ZINC OXIDE 20% OINTMENT 60gm TOP SCH (19:46)
[2022-03-27] MEDS: METRONIDAZOLE 500mg IVPB 500 MG/100 ML BAG IV SCH ×3 (00:38→17:02)
[2022-03-27 06:33] LABS: Magnesium 1.4 mg/dL (1.8-2.4)
[2022-03-27 06:36] LABS: Potassium 2.6 mmol/L (3.5-5.1)
[2022-03-27] MEDS ORDERED: MAGNESIUM SULFATE 1 gm IVPB 1 GM/100 ML BAG IV ONE (07:21)
[2022-03-27] MEDS ORDERED: POTASSIUM CL SA 10 MEQ TAB PO ONE (07:23)
[2022-03-27] MEDS: ZINC OXIDE 20% OINTMENT 60gm TOP SCH ×2 (07:56→19:35)
[2022-03-27] MEDS: FIDAXOMICIN 200 MG TABLET PO SCH ×2 (07:56→19:37)
[2022-03-27] MEDS: CRANBERRY FRUIT EXTRACT 400 MG CAP PO SCH ×2 (07:57→19:36)
[2022-03-27] MEDS: MUPIROCIN 2% OINT 22GM TUBE TOP SCH ×2 (07:57→19:35)
[2022-03-27] MEDS: FERROUS SULFATE 325 MG TAB PO SCH ×2 (07:57→19:36)
[2022-03-27] MEDS: GABAPENTIN 300 MG CAP PO SCH ×3 (07:57→19:36)
[2022-03-27] MEDS: MAGNESIUM OXIDE 400 MG TAB PO SCH ×2 (07:58→19:36)
[2022-03-27] MEDS: APIXABAN 5 MG TABLET PO SCH ×2 (07:58→19:36)
[2022-03-27] MEDS: SODIUM CHLORIDE 0.9% 10ML INJ IV SCH ×2 (07:58→19:37)
[2022-03-27] MEDS ORDERED: JUVEN PACKET PO SCH (08:00)
[2022-03-27] MEDS: POTASSIUM CL SA 10 MEQ TAB PO SCH ×2 (09:31→19:36)
[2022-03-27] MEDS: ENSURE ENLIVE 237 ML CAN PO SCH (19:43)
[2022-03-27 20:56] LABS: C.diff Antigen/Toxin AG NEG:TOX NEG (NEG : NEG)
[2022-03-28] MEDS: METRONIDAZOLE 500mg IVPB 500 MG/100 ML BAG IV SCH ×3 (00:25→16:20)
[2022-03-28 04:53] LABS: Absolute Lymphocytes (CBC) 1.1 K/uL (0.7-4.9); Hematocrit 22.6 % (36.0-45.0); Lymphocytes % 19.2 % (15.3-44.8); MPV 8.5 fL (7.6-11.3)
[2022-03-28 05:10] LABS: Magnesium 1.4 mg/dL (1.8-2.4); Potassium 2.7 mmol/L (3.5-5.1)
[2022-03-28] MEDS ORDERED: MAGNESIUM SULFATE 1 gm IVPB 1 GM/100 ML BAG IV ONE (06:00)
[2022-03-28] MEDS: SODIUM CHLORIDE 0.9% 10ML INJ IV SCH ×2 (07:16→20:23)
[2022-03-28] MEDS: ZINC OXIDE 20% OINTMENT 60gm TOP SCH ×2 (07:22→20:23)
[2022-03-28] MEDS: MUPIROCIN 2% OINT 22GM TUBE TOP SCH ×2 (07:22→20:23)
[2022-03-28] MEDS: MAGNESIUM OXIDE 400 MG TAB PO SCH ×2 (07:43→20:23)
[2022-03-28] MEDS: APIXABAN 5 MG TABLET PO SCH ×2 (07:43→20:24)
[2022-03-28] MEDS: POTASSIUM CL SA 10 MEQ TAB PO SCH ×2 (07:43→20:23)
[2022-03-28] MEDS: FERROUS SULFATE 325 MG TAB PO SCH ×2 (07:44→20:23)
[2022-03-28] MEDS: GABAPENTIN 300 MG CAP PO SCH ×3 (07:44→20:23)
[2022-03-28] MEDS: CRANBERRY FRUIT EXTRACT 400 MG CAP PO SCH ×2 (07:44→20:23)
[2022-03-28] MEDS: FIDAXOMICIN 200 MG TABLET PO SCH ×2 (07:44→20:24)
[2022-03-28] MEDS ORDERED: POTASSIUM CL SA 10 MEQ TAB PO ONE (08:00)
[2022-03-28] MEDS: ENSURE ENLIVE 237 ML CAN PO SCH ×2 (09:03→20:24)
[2022-03-29] MEDS: METRONIDAZOLE 500mg IVPB 500 MG/100 ML BAG IV SCH ×3 (00:26→17:13)
[2022-03-29 04:25] LABS: Magnesium 1.5 mg/dL (1.8-2.4); Potassium 3.2 mmol/L (3.5-5.1)
[2022-03-29] MEDS: MUPIROCIN 2% OINT 22GM TUBE TOP SCH ×2 (07:57→19:26)
[2022-03-29] MEDS: POTASSIUM CL SA 10 MEQ TAB PO SCH ×2 (07:58→19:27)
[2022-03-29] MEDS: SODIUM CHLORIDE 0.9% 10ML INJ IV SCH ×2 (07:58→19:29)
[2022-03-29] MEDS: ZINC OXIDE 20% OINTMENT 60gm TOP SCH ×2 (07:58→19:26)
[2022-03-29] MEDS: FE SULF/FA/VIT B COMP & C TAB PO SCH (07:59)
[2022-03-29] MEDS: FERROUS SULFATE 325 MG TAB PO SCH ×2 (07:59→19:28)
[2022-03-29] MEDS: CRANBERRY FRUIT EXTRACT 400 MG CAP PO SCH ×2 (07:59→19:28)
[2022-03-29] MEDS: GABAPENTIN 300 MG CAP PO SCH ×3 (07:59→19:26)
[2022-03-29] MEDS: MAGNESIUM OXIDE 400 MG TAB PO SCH ×2 (07:59→19:26)
[2022-03-29] MEDS: APIXABAN 5 MG TABLET PO SCH ×2 (07:59→19:26)
[2022-03-29] MEDS: FIDAXOMICIN 200 MG TABLET PO SCH (08:00)
[2022-03-29] MEDS: ENSURE ENLIVE 237 ML CAN PO SCH (08:00)
--- NOTE | 2022-03-29 11:53 | RAD REPORT ---
EXAM DESCRIPTION: CT - Chest For Pe Angio - 03/29/2022 11:37 am CLINICAL HISTORY: Chest pain. R/O PE COMPARISON: Chest For Pe Angio dated 03/12/2022 TECHNIQUE: CT angiogram of the pulmonary arteries was performed with MIP. All CT scans are performed using dose optimization technique as appropriate and may include automated exposure control or mA/KV adjustment according to patient size. FINDINGS: No evidence of pulmonary thromboembolism. No acute aortic finding demonstrated. Mild linear atelectasis is present in both lung bases. No significant pericardial or pleural fluid. No concerning bony finding. Cholecystectomy. Surgical changes of gastric sleeve also noted. IMPRESSION: No evidence of pulmonary thromboembolism. Mild linear atelectasis is present in both lung bases.
[2022-03-29] MEDS: DIPHENOX/ATROP SULF 1 TAB PO PRN (17:31)
--- NOTE | 2022-03-29 17:35 | R.PN ---
PROGRESS NOTES ENCOUNTER DATE AND TIME: 03/29/2022 17:27 (CDT) NAME OMERO ESPANA DATE OF : 1970 DATE OF ADMISSION: 03/25/2022 13:24 (CDT) C20 Malignant Neoplasm of RectumCHIEF COMPLAINT: Debility and malignant neoplasm of rectum SUBJECTIVE: Pt denied any depression. Pt denied any Shortness of Breath. WBC 5.6, Hgb 7.5, Mg 1.5, will give one gram of magnesium then mag oxide 800 mg bid, prealbumin 11.7, C.diff is negative. Ambulated 200' with CGA using a rolling walker. VITAL SIGNS Temperature: 98.4 F SBP/DBP: 101/61 Pulse: 89 Resp: 16 MEDICATION ALLERGIES: No Known Drug Allergies (NKDA) ENVIRONMENTAL ALLERGIES: - Substance Allergies None Known - Other Allergies None Known NURSING: - Shower allowing shower - PICC Line care per protocol PRECAUTIONS: - Fall Precaution Bed alarm TABS alarm Wheel chair alarm - Aspiration Precaution HOB (head of bed) elevated above 30 degrees while receiving tube feed No straws - DVT Risk due to restricted mobility and age - Bleeding Risk Eliquis - Isolation Precaution Contact precaution - Incontinence Bladder Incontinence Bowel Incontinence - Skin Breakdown Risk due to restricted mobility and age ACTIVITIES OOB only with supervision THERAPIES: - Dietary and Nutrition Adequate Nutrition. Nutritional Education. Nutritional Supplements. - Occupational Therapy Cognitive Retraining. Patient needs Occupational Therapy for a daily minimum of 1.5 hours at least 5 out of 7 days, to improve Activities of Daily Living, including: Eating, Grooming, Bathing, Dressing, Toileting, Toilet Transfers, Community Reintegration, Higher functional activities, Adaptive Equipme nt, Splinting, Household Tasks, and Other activities as determined. Visual Perceptual Training. - Speech Therapy Cognitive Training. Expressive Language Skills. Memory Strategies. Patient needs Speech Therapy for a daily minimum of 1.5 hours at least 5 out of 7 days, to improve: Swallowing, Cognition, Language Ski lls, and Compensatory Strategies. Receptive Language Skills. Speech Intelligibility Training. - Physical Therapy Patient needs Physical Therapy for a daily minimum of 1.5 hours at least 5 out of 7 days, to improve: Mobility, Strengthening, Transfers, Stretching, ROM, Endurance, Ability to manage stairs, Gait, and Balance. PHYSICAL EXAM - Gen Alert and awake Lying in bed No apparent distress Oriented to: person, time, and place - Skin No breakdown No abnormalities - Eyes No abnormalities - ENMT No abnormalities - Neck No stiffness - CVS RRR - Chest No abnormalities - Resp Clear to auscultation - Abd + bowel sounds - GI Soft Deferred - No abnormalities - Ext No significant edema - MSK 4+/5 weakness in both lower extremities. - Neuro 4/5 strength bilaterally upper and lower extremities. - Psych No abnormalities ASSESSMENT: Pt. is a 51 yo white female.On 03/19/2022 she was admitted to [facility] with diagnos is C20 Malignant Neoplasm of Rectum.Her impairment category is Medically Complex Conditions 17 - Romeo plasms (17.2).Pre-morbidly, Pt. was independent/mod-I in Locomotion, Balance, and Self-Care; and she had good Safety Awareness, Endurance, Sphincter Control, Transfers Control, and Balance.Currently, sh e has deficits of Locomotion, Safety Awareness, Balance, Transfers Control, Sphincter Control, Endura nce, and Self-Care.Pt. is now referred to [facility] for acute in-patient reha bilitation in order to maximize patient's functional independence in activities of daily living, stre ngth, ROM, and mobility.- Rehab Goal Patient has realistic goal of being discharged at assistance level 6-Margarito to reside at Home with Fam hannah/Relatives. MDM/PLAN: - Physical Therapy Gait dysfunction - to improve, our physical therapists will perform initial evaluation of pt's statu s upon admission and devise an individualized program for Gait Training, and Wheel Chair mobility Inability to transfer - to improve, our physical therapists will perform initial evaluation of pt's status upon admission and devise an individualized program for Bed mobility Need for home safety evaluation - to improve, our physical therapists will perform initial evaluatio n of pt's status upon admission and devise an individualized program for Home Evaluation Need in caregiver upon discharge - to improve, our physical therapists will perform initial evaluati on of pt's status upon admission and devise an individualized program for Caregiver Training New precaution - to improve, our physical therapists will perform initial evaluation of pt's status upon admission and devise an individualized program for Patient precaution education Edema - to improve, our physical therapists will perform initial evaluation of pt's status upon admis jayme and devise an individualized program for Elevation Training, and Lymphedema Therapy Poor balance - to improve, our physical therapists will perform initial evaluation of pt's status up on admission and devise an individualized program for Balance Training Poor endurance - to improve, our physical therapists will perform initial evaluation of pt's status upon admission and devise an individualized program for Endurance Training Weakness - to improve, our physical therapists will perform initial evaluation of pt's status upon a dmission and devise an individualized program for Aquatic Therapy, Neuromuscular Reeducation, and Str engthening Achieving independence - to improve, our physical therapists will perform initial evaluation of pt's status upon admission and devise an individualized program for Community Reintegration Activities - Occupational Therapy ADL deficits - to improve, our occupation therapists will perform initial evaluation of pt's status upon admission and devise an individualized program for Bathing, Bed mobility, Community Reintegratio n, Cooking, Dressing, Eating, Fine Motor Skills, Grooming, Homemaking, Kitchen Mobility, Laundry, Pat ient Education, Safety Awareness, Splinting - Positioning, Transfers(Toilet, Tub, Shower), and Wheel Chair Management Need for career guidance counselor - to improve, our occupation therapists will perform initial evaluation of pt's status upon admission and devise an individualized program for Caregiver Training Weakness - to improve, our occupation therapists will perform initial evaluation of pt's status upon admission and devise an individualized program for Aquatic Therapy, Balance, Endurance, UE ROM, and UE strengthening - Other See attached MAR (Medication Administration Record) - Diet Type Continue Regular - Diet - Liquid Texture Continue Regular - Tube Feed Continue N/A - Incontinence Bladder Incontinence Bowel Incontinence - Bleeding Risk Eliquis - PICC Line care per protocol - DVT Risk due to restricted mobility and age - Skin Breakdown Risk due to restricted mobility and age - Aspiration Precaution HOB (head of bed) elevated above 30 degrees while receiving tube feed No straws - Isolation Precaution Contact precaution - Fall Precaution Bed alarm TABS alarm Wheel chair alarm - Diet - Solid Texture Continue Regular - Shower allowing shower FUNCTIONAL STATUS: UPDATED AT WEEKLY TEAM CONFERENCE - Bladder Same accident frequency: 7-Ind - No accidents in the past 7 days - Bowel Same accident frequency: 7-Ind - No accidents in the past 7 days - Walking Same score based on distance walked: 0(N/A) - Wheelchair Same score based on distance traveled: 0(N/A) FUNCTIONAL STATUS: - Self-Care A. Eating Ind B. Grooming Margarito C. Bathing sup D. Dressing - Upper sup E. Dressing - Lower Vanna F. Toileting sup - Sphincter Control G. Bladder control sup H. Bowel control sup - Transfers Control I. Bed/Chair/Wheelchair sup J. Toilet sup K. Tub/Shower Vanna - Locomotion L. Walk/Wheelchair (B) Vanna M. Stairs maxA - Communication N. Comprehension (B) Ind O. Expression (B) Ind - Social Cognition P. Social Interaction Ind Q. Problem Solving Ind R. Memory Ind - Endurance Good - Balance Fair - Safety Awareness Good QI SCORES: - Self-Care A. Eating 04-Supervision or touching assistance B. Oral hygiene 04-Supervision or touching assistance C. Toileting hygiene 04-Supervision or touching assistance E. Shower/bathe self 04-Supervision or touching assistance F. Upper body dressing 04-Supervision or touching assistance G. Lower body dressing 04-Supervision or touching assistance H. Putting on/taking off footwear 04-Supervision or touching assistance - Mobility A. Roll left and right 88-Not attempted due to medical condition or safety concerns B. Sit to lying 04-Supervision or touching assistance C. Lying to sitting on side of bed 03-Partial/moderate assistance D. Sit to stand 03-Partial/moderate assistance E. Chair/mdu-ms-lbarx transfer 03-Partial/moderate assistance F. Toilet transfer 03-Partial/moderate assistance G. Car transfer 03-Partial/moderate assistance I. Walk 10 feet 88-Not attempted due to medical condition or safety concerns J. Walk 50 feet with two turns 88-Not attempted due to medical condition or safety concerns K. Walk 150 feet 88-Not attempted due to medical condition or safety concerns L. Walking 10 feet on uneven surfaces 88-Not attempted due to medical condition or safety concerns M. 1 step (curb) 88-Not attempted due to medical condition or safety concerns N. 4 steps 88-Not attempted due to medical condition or safety concerns O. 12 steps 88-Not attempted due to medical condition or safety concerns P. Picking up object 88-Not attempted due to medical condition or safety concerns R. Wheel 50 feet with two turns 88-Not attempted due to medical condition or safety concerns S. Wheel 150 feet 88-Not attempted due to medical condition or safety concerns - Bladder and Bowel Bladder continence 3-Incontinent daily Bowel continence 2-Frequently incontinent - Endurance Poor - Balance Poor - Safety Awareness Fair CURRENT [facility]. DEFICITS: Self-Care, Endurance, Balance, Safety Awareness, and Mobility SIGNATURE PANEL: (CDT)
[2022-03-29] MEDS ORDERED: MAGNESIUM SULFATE 1 gm IVPB 1 GM/100 ML BAG IV SCH ×2 (17:38→19:00)
[2022-03-29] MEDS ORDERED: NA CHLORIDE 0.9% 250 ML ONE (18:50)
[2022-03-29] MEDS: LACTOSE-REDUCED FOOD 330 ML LIQUID PO SCH (19:35)
[2022-03-30] MEDS: METRONIDAZOLE 500mg IVPB 500 MG/100 ML BAG IV SCH ×3 (00:14→18:36)
[2022-03-30 05:48] LABS: Potassium 2.9 mmol/L (3.5-5.1)
[2022-03-30 05:49] LABS: Magnesium 1.3 mg/dL (1.8-2.4)
[2022-03-30] MEDS ORDERED: MAGNESIUM SULFATE 1 gm IVPB 1 GM/100 ML BAG IV ONE ×2 (06:09→13:44)
[2022-03-30] MEDS: POTASSIUM CL SA 10 MEQ TAB PO ONE ×2 (06:14→12:31)
[2022-03-30] MEDS: CRANBERRY FRUIT EXTRACT 400 MG CAP PO SCH ×2 (07:40→19:24)
[2022-03-30] MEDS: POTASSIUM CL SA 10 MEQ TAB PO SCH (07:40)
[2022-03-30] MEDS: MAGNESIUM OXIDE 400 MG TAB PO SCH ×2 (07:40→19:24)
[2022-03-30] MEDS: FERROUS SULFATE 325 MG TAB PO SCH ×2 (07:41→19:24)
[2022-03-30] MEDS: LACTOSE-REDUCED FOOD 330 ML LIQUID PO SCH ×2 (07:41→19:24)
[2022-03-30] MEDS: SODIUM CHLORIDE 0.9% 10ML INJ IV SCH ×2 (07:41→19:25)
[2022-03-30] MEDS: GABAPENTIN 300 MG CAP PO SCH ×3 (07:41→19:24)
[2022-03-30] MEDS: APIXABAN 5 MG TABLET PO SCH ×2 (07:41→19:24)
[2022-03-30] MEDS: MUPIROCIN 2% OINT 22GM TUBE TOP SCH ×2 (07:41→08:00)
[2022-03-30] MEDS: FE SULF/FA/VIT B COMP & C TAB PO SCH (07:41)
[2022-03-30] MEDS: ZINC OXIDE 20% OINTMENT 60gm TOP SCH ×2 (07:42→19:24)
[2022-03-30] MEDS: DIPHENOX/ATROP SULF 1 TAB PO PRN (14:03)
[2022-03-30] MEDS: KCL 20 MEQ/100 mL IVPB 20 MEQ/100 ML BAG IV SCH ×2 (15:58→20:18)
--- NOTE | 2022-03-30 17:58 | R.PN ---
PROGRESS NOTES ENCOUNTER DATE AND TIME: 03/30/2022 17:53 (CDT) NAME OMERO ESPANA DATE OF : 1970 DATE OF ADMISSION: 03/25/2022 13:24 (CDT) C20 Malignant Neoplasm of RectumCHIEF COMPLAINT: Debility and malignant neoplasm of rectum SUBJECTIVE: Pt denied any depression. Pt denied any Shortness of Breath. WBC 5.6, Hgb 7.5, K+ is 2.9, Mg 1.3, will give another one gram of magnesium then mag oxide 800 mg bi d, prealbumin 11.7, C.diff is negative. Ambulated 252' with CGA using a rolling walker. VITAL SIGNS Temperature: 98.4 F SBP/DBP: 92/55 Pulse: 82 Resp: 16 MEDICATION ALLERGIES: No Known Drug Allergies (NKDA) ENVIRONMENTAL ALLERGIES: - Substance Allergies None Known - Other Allergies None Known NURSING: - Shower allowing shower - PICC Line care per protocol PRECAUTIONS: - Fall Precaution Bed alarm TABS alarm Wheel chair alarm - Aspiration Precaution HOB (head of bed) elevated above 30 degrees while receiving tube feed No straws - DVT Risk due to restricted mobility and age - Bleeding Risk Eliquis - Isolation Precaution Contact precaution - Incontinence Bladder Incontinence Bowel Incontinence - Skin Breakdown Risk due to restricted mobility and age ACTIVITIES OOB only with supervision THERAPIES: - Dietary and Nutrition Adequate Nutrition. Nutritional Education. Nutritional Supplements. - Occupational Therapy Cognitive Retraining. Patient needs Occupational Therapy for a daily minimum of 1.5 hours at least 5 out of 7 days, to improve Activities of Daily Living, including: Eating, Grooming, Bathing, Dressing, Toileting, Toilet Transfers, Community Reintegration, Higher functional activities, Adaptive Equipme nt, Splinting, Household Tasks, and Other activities as determined. Visual Perceptual Training. - Speech Therapy Cognitive Training. Expressive Language Skills. Memory Strategies. Patient needs Speech Therapy for a daily minimum of 1.5 hours at least 5 out of 7 days, to improve: Swallowing, Cognition, Language Ski lls, and Compensatory Strategies. Receptive Language Skills. Speech Intelligibility Training. - Physical Therapy Patient needs Physical Therapy for a daily minimum of 1.5 hours at least 5 out of 7 days, to improve: Mobility, Strengthening, Transfers, Stretching, ROM, Endurance, Ability to manage stairs, Gait, and Balance. PHYSICAL EXAM - Gen Alert and awake Lying in bed No apparent distress Oriented to: person, time, and place - Skin No breakdown No abnormalities - Eyes No abnormalities - ENMT No abnormalities - Neck No stiffness - CVS RRR - Chest No abnormalities - Resp Clear to auscultation - Abd + bowel sounds - GI Soft Deferred - No abnormalities - Ext No significant edema - MSK 4+/5 weakness in both lower extremities. - Neuro 4/5 strength bilaterally upper and lower extremities. - Psych No abnormalities ASSESSMENT: Pt. is a 51 yo white female.On 03/19/2022 she was admitted to [facility] with diagnos is C20 Malignant Neoplasm of Rectum.Her impairment category is Medically Complex Conditions 17 - Romeo plasms (17.2).Pre-morbidly, Pt. was independent/mod-I in Locomotion, Balance, and Self-Care; and she had good Safety Awareness, Endurance, Sphincter Control, Transfers Control, and Balance.Currently, sh e has deficits of Locomotion, Safety Awareness, Balance, Transfers Control, Sphincter Control, Endura nce, and Self-Care.Pt. is now referred to [facility] for acute in-patient reha bilitation in order to maximize patient's functional independence in activities of daily living, stre ngth, ROM, and mobility.- Rehab Goal Patient has realistic goal of being discharged at assistance level 6-Margarito to reside at Home with Fam hannah/Relatives. MDM/PLAN: - Physical Therapy Gait dysfunction - to improve, our physical therapists will perform initial evaluation of pt's statu s upon admission and devise an individualized program for Gait Training, and Wheel Chair mobility Inability to transfer - to improve, our physical therapists will perform initial evaluation of pt's status upon admission and devise an individualized program for Bed mobility Need for home safety evaluation - to improve, our physical therapists will perform initial evaluatio n of pt's status upon admission and devise an individualized program for Home Evaluation Need in caregiver upon discharge - to improve, our physical therapists will perform initial evaluati on of pt's status upon admission and devise an individualized program for Caregiver Training New precaution - to improve, our physical therapists will perform initial evaluation of pt's status upon admission and devise an individualized program for Patient precaution education Edema - to improve, our physical therapists will perform initial evaluation of pt's status upon admi ssion and devise an individualized program for Elevation Training, and Lymphedema Therapy Poor balance - to improve, our physical therapists will perform initial evaluation of pt's status up on admission and devise an individualized program for Balance Training Poor endurance - to improve, our physical therapists will perform initial evaluation of pt's status upon admission and devise an individualized program for Endurance Training Weakness - to improve, our physical therapists will perform initial evaluation of pt's status upon a dmission and devise an individualized program for Aquatic Therapy, Neuromuscular Reeducation, and Str engthening Achieving independence - to improve, our physical therapists will perform initial evaluation of pt's status upon admission and devise an individualized program for Community Reintegration Activities - Occupational Therapy ADL deficits - to improve, our occupation therapists will perform initial evaluation of pt's status upon admission and devise an individualized program for Bathing, Bed mobility, Community Reintegratio n, Cooking, Dressing, Eating, Fine Motor Skills, Grooming, Homemaking, Kitchen Mobility, Laundry, Pat ient Education, Safety Awareness, Splinting - Positioning, Transfers(Toilet, Tub, Shower), and Wheel Chair Management Need for nurse healthcare manager - to improve, our occupation therapists will perform initial evaluation of pt's status upon admission and devise an individualized program for Caregiver Training Weakness - to improve, our occupation therapists will perform initial evaluation of pt's status upon admission and devise an individualized program for Aquatic Therapy, Balance, Endurance, UE ROM, and UE strengthening - Other See attached MAR (Medication Administration Record) - Diet Type Continue Regular - Diet - Liquid Texture Continue Regular - Tube Feed Continue N/A - Incontinence Bladder Incontinence Bowel Incontinence - Bleeding Risk Eliquis - PICC Line care per protocol - DVT Risk due to restricted mobility and age - Skin Breakdown Risk due to restricted mobility and age - Aspiration Precaution HOB (head of bed) elevated above 30 degrees while receiving tube feed No straws - Isolation Precaution Contact precaution - Fall Precaution Bed alarm TABS alarm Wheel chair alarm - Diet - Solid Texture Continue Regular - Shower allowing shower FUNCTIONAL STATUS: UPDATED AT WEEKLY TEAM CONFERENCE - Bladder Same accident frequency: 7-Ind - No accidents in the past 7 days - Bowel Same accident frequency: 7-Ind - No accidents in the past 7 days - Walking Same score based on distance walked: 0(N/A) - Wheelchair Same score based on distance traveled: 0(N/A) FUNCTIONAL STATUS: - Self-Care A. Eating Ind B. Grooming Margarito C. Bathing sup D. Dressing - Upper sup E. Dressing - Lower Vanna F. Toileting sup - Sphincter Control G. Bladder control sup H. Bowel control sup - Transfers Control I. Bed/Chair/Wheelchair sup J. Toilet sup K. Tub/Shower Vanna - Locomotion L. Walk/Wheelchair (B) Vanna M. Stairs maxA - Communication N. Comprehension (B) Ind O. Expression (B) Ind - Social Cognition P. Social Interaction Ind Q. Problem Solving Ind R. Memory Ind - Endurance Good - Balance Fair - Safety Awareness Good QI SCORES: - Self-Care A. Eating 04-Supervision or touching assistance B. Oral hygiene 04-Supervision or touching assistance C. Toileting hygiene 04-Supervision or touching assistance E. Shower/bathe self 04-Supervision or touching assistance F. Upper body dressing 04-Supervision or touching assistance G. Lower body dressing 04-Supervision or touching assistance H. Putting on/taking off footwear 04-Supervision or touching assistance - Mobility A. Roll left and right 88-Not attempted due to medical condition or safety concerns B. Sit to lying 04-Supervision or touching assistance C. Lying to sitting on side of bed 03-Partial/moderate assistance D. Sit to stand 03-Partial/moderate assistance E. Chair/[id number] transfer 03-Partial/moderate assistance F. Toilet transfer 03-Partial/moderate assistance G. Car transfer 03-Partial/moderate assistance I. Walk 10 feet 88-Not attempted due to medical condition or safety concerns J. Walk 50 feet with two turns 88-Not attempted due to medical condition or safety concerns K. Walk 150 feet 88-Not attempted due to medical condition or safety concerns L. Walking 10 feet on uneven surfaces 88-Not attempted due to medical condition or safety concerns M. 1 step (curb) 88-Not attempted due to medical condition or safety concerns N. 4 steps 88-Not attempted due to medical condition or safety concerns O. 12 steps 88-Not attempted due to medical condition or safety concerns P. Picking up object 88-Not attempted due to medical condition or safety concerns R. Wheel 50 feet with two turns 88-Not attempted due to medical condition or safety concerns S. Wheel 150 feet 88-Not attempted due to medical condition or safety concerns - Bladder and Bowel Bladder continence 3-Incontinent daily Bowel continence 2-Frequently incontinent - Endurance Poor - Balance Poor - Safety Awareness Fair CURRENT [facility]. DEFICITS: Self-Care, Endurance, Balance, Safety Awareness, and Mobility SIGNATURE PANEL: (CDT)
[2022-03-30] MEDS ORDERED: KCL 20 MEQ/100 mL IVPB 20 MEQ/100 ML BAG IV SCH (20:00)
[2022-03-31] MEDS: METRONIDAZOLE 500mg IVPB 500 MG/100 ML BAG IV SCH ×3 (00:44→16:35)
[2022-03-31 06:11] LABS: Potassium 3.8 mmol/L (3.5-5.1)
[2022-03-31 06:13] LABS: Magnesium 1.4 mg/dL (1.8-2.4)
[2022-03-31] MEDS: APIXABAN 5 MG TABLET PO SCH ×2 (07:23→19:42)
[2022-03-31] MEDS ORDERED: MAGNESIUM SULFATE 1 gm IVPB 1 GM/100 ML BAG IV ONE ×2 (07:30→14:58)
[2022-03-31] MEDS: SODIUM CHLORIDE 0.9% 10ML INJ IV SCH ×2 (08:00→19:43)
[2022-03-31] MEDS: ZINC OXIDE 20% OINTMENT 60gm TOP SCH ×2 (08:00→19:43)
[2022-03-31] MEDS: LACTOSE-REDUCED FOOD 330 ML LIQUID PO SCH ×2 (08:00→19:42)
[2022-03-31] MEDS: CRANBERRY FRUIT EXTRACT 400 MG CAP PO SCH (08:36)
[2022-03-31] MEDS: FERROUS SULFATE 325 MG TAB PO SCH ×2 (08:36→19:42)
[2022-03-31] MEDS: GABAPENTIN 300 MG CAP PO SCH ×5 (08:37→19:46)
[2022-03-31] MEDS: FE SULF/FA/VIT B COMP & C TAB PO SCH (08:38)
[2022-03-31] MEDS: MAGNESIUM OXIDE 400 MG TAB PO SCH ×2 (08:38→19:42)
[2022-03-31] MEDS: DIPHENOX/ATROP SULF 1 TAB PO PRN (10:49)
--- NOTE | 2022-03-31 17:27 | R.PN ---
PROGRESS NOTES ENCOUNTER DATE AND TIME: 03/31/2022 17:23 (CDT) NAME OMERO ESPANA DATE OF : 1970 DATE OF ADMISSION: 03/25/2022 13:24 (CDT) C20 Malignant Neoplasm of RectumCHIEF COMPLAINT: Debility and malignant neoplasm of rectum SUBJECTIVE: Pt denied any depression. Pt denied any Shortness of Breath. WBC 5.6, Hgb 7.5, K+ is 2.9, Mg 1.3, will give another one gram of magnesium then mag oxide 800 mg bi d, prealbumin 11.7, C.diff is negative. Ambulated 260' with SBA using a rolling walker. Self-propelled wheelchair 100' with SBA. VITAL SIGNS Temperature: 98.0 F SBP/DBP: 99/55 Pulse: 97 Resp: 16 MEDICATION ALLERGIES: No Known Drug Allergies (NKDA) ENVIRONMENTAL ALLERGIES: - Substance Allergies None Known - Other Allergies None Known NURSING: - Shower allowing shower - PICC Line care per protocol PRECAUTIONS: - Fall Precaution Bed alarm TABS alarm Wheel chair alarm - Aspiration Precaution HOB (head of bed) elevated above 30 degrees while receiving tube feed No straws - DVT Risk due to restricted mobility and age - Bleeding Risk Eliquis - Isolation Precaution Contact precaution - Incontinence Bladder Incontinence Bowel Incontinence - Skin Breakdown Risk due to restricted mobility and age ACTIVITIES OOB only with supervision THERAPIES: - Dietary and Nutrition Adequate Nutrition. Nutritional Education. Nutritional Supplements. - Occupational Therapy Cognitive Retraining. Patient needs Occupational Therapy for a daily minimum of 1.5 hours at least 5 out of 7 days, to improve Activities of Daily Living, including: Eating, Grooming, Bathing, Dressing, Toileting, Toilet Transfers, Community Reintegration, Higher functional activities, Adaptive Equipme nt, Splinting, Household Tasks, and Other activities as determined. Visual Perceptual Training. - Speech Therapy Cognitive Training. Expressive Language Skills. Memory Strategies. Patient needs Speech Therapy for a daily minimum of 1.5 hours at least 5 out of 7 days, to improve: Swallowing, Cognition, Language Ski lls, and Compensatory Strategies. Receptive Language Skills. Speech Intelligibility Training. - Physical Therapy Patient needs Physical Therapy for a daily minimum of 1.5 hours at least 5 out of 7 days, to improve: Mobility, Strengthening, Transfers, Stretching, ROM, Endurance, Ability to manage stairs, Gait, and Balance. PHYSICAL EXAM - Gen Alert and awake Lying in bed No apparent distress Oriented to: person, time, and place - Skin No breakdown No abnormalities - Eyes No abnormalities - ENMT No abnormalities - Neck No stiffness - CVS RRR - Chest No abnormalities - Resp Clear to auscultation - Abd + bowel sounds - GI Soft Deferred - No abnormalities - Ext No significant edema - MSK 4+/5 weakness in both lower extremities. - Neuro 4/5 strength bilaterally upper and lower extremities. - Psych No abnormalities ASSESSMENT: Pt. is a 51 yo white female.On 03/19/2022 she was admitted to [facility] with diagnos is C20 Malignant Neoplasm of Rectum.Her impairment category is Medically Complex Conditions 17 - Romeo plasms (17.2).Pre-morbidly, Pt. was independent/mod-I in Locomotion, Balance, and Self-Care; and she had good Safety Awareness, Endurance, Sphincter Control, Transfers Control, and Balance.Currently, sh e has deficits of Locomotion, Safety Awareness, Balance, Transfers Control, Sphincter Control, Endura nce, and Self-Care.Pt. is now referred to [facility] for acute in-patient reha bilitation in order to maximize patient's functional independence in activities of daily living, stre ngth, ROM, and mobility.- Rehab Goal Patient has realistic goal of being discharged at assistance level 6-Margarito to reside at Home with Fam hannah/Relatives. MDM/PLAN: - Physical Therapy Gait dysfunction - to improve, our physical therapists will perform initial evaluation of pt's statu s upon admission and devise an individualized program for Gait Training, and Wheel Chair mobility Inability to transfer - to improve, our physical therapists will perform initial evaluation of pt's status upon admission and devise an individualized program for Bed mobility Need for home safety evaluation - to improve, our physical therapists will perform initial evaluatio n of pt's status upon admission and devise an individualized program for Home Evaluation Need in caregiver upon discharge - to improve, our physical therapists will perform initial evaluati on of pt's status upon admission and devise an individualized program for Caregiver Training New precaution - to improve, our physical therapists will perform initial evaluation of pt's status upon admission and devise an individualized program for Patient precaution education Edema - to improve, our physical therapists will perform initial evaluation of pt's status upon admi ssion and devise an individualized program for Elevation Training, and Lymphedema Therapy Poor balance - to improve, our physical therapists will perform initial evaluation of pt's status up on admission and devise an individualized program for Balance Training Poor endurance - to improve, our physical therapists will perform initial evaluation of pt's status upon admission and devise an individualized program for Endurance Training Weakness - to improve, our physical therapists will perform initial evaluation of pt's status upon a dmission and devise an individualized program for Aquatic Therapy, Neuromuscular Reeducation, and Str engthening Achieving independence - to improve, our physical therapists will perform initial evaluation of pt's status upon admission and devise an individualized program for Community Reintegration Activities - Occupational Therapy ADL deficits - to improve, our occupation therapists will perform initial evaluation of pt's status upon admission and devise an individualized program for Bathing, Bed mobility, Community Reintegratio n, Cooking, Dressing, Eating, Fine Motor Skills, Grooming, Homemaking, Kitchen Mobility, Laundry, Pat ient Education, Safety Awareness, Splinting - Positioning, Transfers(Toilet, Tub, Shower), and Wheel Chair Management Need for rn intensive care unit - to improve, our occupation therapists will perform initial evaluation of pt's status upon admission and devise an individualized program for Caregiver Training Weakness - to improve, our occupation therapists will perform initial evaluation of pt's status upon admission and devise an individualized program for Aquatic Therapy, Balance, Endurance, UE ROM, and UE strengthening - Other See attached MAR (Medication Administration Record) - Diet Type Continue Regular - Diet - Liquid Texture Continue Regular - Tube Feed Continue N/A - Incontinence Bladder Incontinence Bowel Incontinence - Bleeding Risk Eliquis - PICC Line care per protocol - DVT Risk due to restricted mobility and age - Skin Breakdown Risk due to restricted mobility and age - Aspiration Precaution HOB (head of bed) elevated above 30 degrees while receiving tube feed No straws - Isolation Precaution Contact precaution - Fall Precaution Bed alarm TABS alarm Wheel chair alarm - Diet - Solid Texture Continue Regular - Shower allowing shower FUNCTIONAL STATUS: UPDATED AT WEEKLY TEAM CONFERENCE - Bladder Same accident frequency: 7-Ind - No accidents in the past 7 days - Bowel Same accident frequency: 7-Ind - No accidents in the past 7 days - Walking Same score based on distance walked: 0(N/A) - Wheelchair Same score based on distance traveled: 0(N/A) FUNCTIONAL STATUS: - Self-Care A. Eating Ind B. Grooming Margarito C. Bathing sup D. Dressing - Upper sup E. Dressing - Lower Vanna F. Toileting sup - Sphincter Control G. Bladder control sup H. Bowel control sup - Transfers Control I. Bed/Chair/Wheelchair sup J. Toilet sup K. Tub/Shower Vanna - Locomotion L. Walk/Wheelchair (B) Vanna M. Stairs maxA - Communication N. Comprehension (B) Ind O. Expression (B) Ind - Social Cognition P. Social Interaction Ind Q. Problem Solving Ind R. Memory Ind - Endurance Good - Balance Fair - Safety Awareness Good QI SCORES: - Self-Care A. Eating 04-Supervision or touching assistance B. Oral hygiene 04-Supervision or touching assistance C. Toileting hygiene 04-Supervision or touching assistance E. Shower/bathe self 04-Supervision or touching assistance F. Upper body dressing 04-Supervision or touching assistance G. Lower body dressing 04-Supervision or touching assistance H. Putting on/taking off footwear 04-Supervision or touching assistance - Mobility A. Roll left and right 88-Not attempted due to medical condition or safety concerns B. Sit to lying 04-Supervision or touching assistance C. Lying to sitting on side of bed 03-Partial/moderate assistance D. Sit to stand 03-Partial/moderate assistance E. Chair/[id number] transfer 03-Partial/moderate assistance F. Toilet transfer 03-Partial/moderate assistance G. Car transfer 03-Partial/moderate assistance I. Walk 10 feet 88-Not attempted due to medical condition or safety concerns J. Walk 50 feet with two turns 88-Not attempted due to medical condition or safety concerns K. Walk 150 feet 88-Not attempted due to medical condition or safety concerns L. Walking 10 feet on uneven surfaces 88-Not attempted due to medical condition or safety concerns M. 1 step (curb) 88-Not attempted due to medical condition or safety concerns N. 4 steps 88-Not attempted due to medical condition or safety concerns O. 12 steps 88-Not attempted due to medical condition or safety concerns P. Picking up object 88-Not attempted due to medical condition or safety concerns R. Wheel 50 feet with two turns 88-Not attempted due to medical condition or safety concerns S. Wheel 150 feet 88-Not attempted due to medical condition or safety concerns - Bladder and Bowel Bladder continence 3-Incontinent daily Bowel continence 2-Frequently incontinent - Endurance Poor - Balance Poor - Safety Awareness Fair CURRENT FUNC. DEFICITS: Self-Care, Endurance, Balance, Safety Awareness, and Mobility SIGNATURE PANEL: (CDT)
[2022-03-31] MEDS: DULOXETINE 30 MG CAP PO SCH ×2 (19:42→19:47)
[2022-03-31] MEDS ORDERED: NA CHLORIDE 0.9% 250 ML ONE (20:13)
[2022-04-01] MEDS: METRONIDAZOLE 500mg IVPB 500 MG/100 ML BAG IV SCH ×3 (00:37→17:18)
[2022-04-01 04:38] LABS: Hematocrit 22.2 % (36.0-45.0); RBC Red Blood Cell Count 2.39 M/uL (3.86-4.86)
[2022-04-01 04:39] LABS: Absolute Lymphocytes (CBC) 1.2 K/uL (0.7-4.9); Lymphocytes % 19.6 % (15.3-44.8); MPV 7.8 fL (7.6-11.3)
[2022-04-01 04:53] LABS: Albumin 1.5 g/dL (3.4-5.0); Magnesium 1.6 mg/dL (1.8-2.4); Potassium 3.4 mmol/L (3.5-5.1); Prealbumin 7.2 mg/dL (20-40)
[2022-04-01] MEDS: APIXABAN 5 MG TABLET PO SCH ×2 (07:15→20:24)
[2022-04-01] MEDS: POTASSIUM CL SA 10 MEQ TAB PO ONE ×2 (08:00→08:31)
[2022-04-01] MEDS: SODIUM CHLORIDE 0.9% 10ML INJ IV SCH ×2 (08:00→20:25)
[2022-04-01] MEDS: ZINC OXIDE 20% OINTMENT 60gm TOP SCH ×2 (08:00→20:24)
[2022-04-01] MEDS: LACTOSE-REDUCED FOOD 330 ML LIQUID PO SCH ×2 (08:00→20:00)
[2022-04-01] MEDS: GABAPENTIN 300 MG CAP PO SCH ×3 (08:44→20:24)
[2022-04-01] MEDS: MAGNESIUM OXIDE 400 MG TAB PO SCH ×2 (08:45→20:23)
[2022-04-01] MEDS: FERROUS SULFATE 325 MG TAB PO SCH ×2 (10:06→20:24)
[2022-04-01] MEDS ORDERED: MAGNESIUM SULFATE 1 gm IVPB 1 GM/100 ML BAG IV ONE (11:00)
[2022-04-01] MEDS ORDERED: FE SULF/FA/VIT B COMP & C TAB PO SCH (12:00)
[2022-04-01] MEDS ORDERED: KCL 20 MEQ/100 mL IVPB 20 MEQ/100 ML BAG IV SCH (15:00)
--- NOTE | 2022-04-01 17:26 | R.PN ---
PROGRESS NOTES ENCOUNTER DATE AND TIME: 04/01/2022 17:20 (CDT) NAME OMERO ESPANA DATE OF : 1970 DATE OF ADMISSION: 03/25/2022 13:24 (CDT) C20 Malignant Neoplasm of RectumCHIEF COMPLAINT: Debility and malignant neoplasm of rectum SUBJECTIVE: Pt denied any depression. Pt denied any Shortness of Breath. WBC 6.2, Hgb 7.5, K+ is 3.4, Mg 1.6, will give another 2 grams of magnesium then mag oxide 800 mg bid , prealbumin 7.2. High protein drink. C.diff is negative. Ambulated 500' with SBA using a rolling walker. Self-propelled wheelchair 400' with SBA. Covid-19 retest is negative. VITAL SIGNS Temperature: 97.5 F SBP/DBP: 101/65 Pulse: 78 Resp: 16 MEDICATION ALLERGIES: No Known Drug Allergies (NKDA) ENVIRONMENTAL ALLERGIES: - Substance Allergies None Known - Other Allergies None Known NURSING: - Shower allowing shower - PICC Line care per protocol PRECAUTIONS: - Fall Precaution Bed alarm TABS alarm Wheel chair alarm - Aspiration Precaution HOB (head of bed) elevated above 30 degrees while receiving tube feed No straws - DVT Risk due to restricted mobility and age - Bleeding Risk Eliquis - Isolation Precaution Contact precaution - Incontinence Bladder Incontinence Bowel Incontinence - Skin Breakdown Risk due to restricted mobility and age ACTIVITIES OOB only with supervision THERAPIES: - Dietary and Nutrition Adequate Nutrition. Nutritional Education. Nutritional Supplements. - Occupational Therapy Cognitive Retraining. Patient needs Occupational Therapy for a daily minimum of 1.5 hours at least 5 out of 7 days, to improve Activities of Daily Living, including: Eating, Grooming, Bathing, Dressing, Toileting, Toilet Transfers, Community Reintegration, Higher functional activities, Adaptive Equipme nt, Splinting, Household Tasks, and Other activities as determined. Visual Perceptual Training. - Speech Therapy Cognitive Training. Expressive Language Skills. Memory Strategies. Patient needs Speech Therapy for a daily minimum of 1.5 hours at least 5 out of 7 days, to improve: Swallowing, Cognition, Language Ski lls, and Compensatory Strategies. Receptive Language Skills. Speech Intelligibility Training. - Physical Therapy Patient needs Physical Therapy for a daily minimum of 1.5 hours at least 5 out of 7 days, to improve: Mobility, Strengthening, Transfers, Stretching, ROM, Endurance, Ability to manage stairs, Gait, and Balance. PHYSICAL EXAM - Gen Alert and awake Lying in bed No apparent distress Oriented to: person, time, and place - Skin No breakdown No abnormalities - Eyes No abnormalities - ENMT No abnormalities - Neck No stiffness - CVS RRR - Chest No abnormalities - Resp Clear to auscultation - Abd + bowel sounds - GI Soft Deferred - No abnormalities - Ext No significant edema - MSK 4+/5 weakness in both lower extremities. - Neuro 4/5 strength bilaterally upper and lower extremities. - Psych No abnormalities ASSESSMENT: Pt. is a 51 yo white female.On 03/19/2022 she was admitted to [facility] with diagnos is C20 Malignant Neoplasm of Rectum.Her impairment category is Medically Complex Conditions 17 - Romeo plasms (17.2).Pre-morbidly, Pt. was independent/mod-I in Locomotion, Balance, and Self-Care; and she had good Safety Awareness, Endurance, Sphincter Control, Transfers Control, and Balance.Currently, sh e has deficits of Locomotion, Safety Awareness, Balance, Transfers Control, Sphincter Control, Endura nce, and Self-Care.Pt. is now referred to [facility] for acute in-patient reha bilitation in order to maximize patient's functional independence in activities of daily living, stre ngth, ROM, and mobility.- Rehab Goal Patient has realistic goal of being discharged at assistance level 6-Margarito to reside at Home with Fam hannah/Relatives. MDM/PLAN: - Physical Therapy Gait dysfunction - to improve, our physical therapists will perform initial evaluation of pt's statu s upon admission and devise an individualized program for Gait Training, and Wheel Chair mobility Inability to transfer - to improve, our physical therapists will perform initial evaluation of pt's status upon admission and devise an individualized program for Bed mobility Need for home safety evaluation - to improve, our physical therapists will perform initial evaluatio n of pt's status upon admission and devise an individualized program for Home Evaluation Need in caregiver upon discharge - to improve, our physical therapists will perform initial evaluati on of pt's status upon admission and devise an individualized program for Caregiver Training New precaution - to improve, our physical therapists will perform initial evaluation of pt's status upon admission and devise an individualized program for Patient precaution education Edema - to improve, our physical therapists will perform initial evaluation of pt's status upon admi ssion and devise an individualized program for Elevation Training, and Lymphedema Therapy Poor balance - to improve, our physical therapists will perform initial evaluation of pt's status up on admission and devise an individualized program for Balance Training Poor endurance - to improve, our physical therapists will perform initial evaluation of pt's status upon admission and devise an individualized program for Endurance Training Weakness - to improve, our physical therapists will perform initial evaluation of pt's status upon a dmission and devise an individualized program for Aquatic Therapy, Neuromuscular Reeducation, and Str engthening Achieving independence - to improve, our physical therapists will perform initial evaluation of pt's status upon admission and devise an individualized program for Community Reintegration Activities - Occupational Therapy ADL deficits - to improve, our occupation therapists will perform initial evaluation of pt's status upon admission and devise an individualized program for Bathing, Bed mobility, Community Reintegratio n, Cooking, Dressing, Eating, Fine Motor Skills, Grooming, Homemaking, Kitchen Mobility, Laundry, Pat ient Education, Safety Awareness, Splinting - Positioning, Transfers(Toilet, Tub, Shower), and Wheel Chair Management Need for ambulatory care - to improve, our occupation therapists will perform initial evaluation of pt's status upon admission and devise an individualized program for Caregiver Training Weakness - to improve, our occupation therapists will perform initial evaluation of pt's status upon admission and devise an individualized program for Aquatic Therapy, Balance, Endurance, UE ROM, and UE strengthening - Other See attached MAR (Medication Administration Record) - Diet Type Continue Regular - Diet - Liquid Texture Continue Regular - Tube Feed Continue N/A - Incontinence Bladder Incontinence Bowel Incontinence - Bleeding Risk Eliquis - PICC Line care per protocol - DVT Risk due to restricted mobility and age - Skin Breakdown Risk due to restricted mobility and age - Aspiration Precaution HOB (head of bed) elevated above 30 degrees while receiving tube feed No straws - Isolation Precaution Contact precaution - Fall Precaution Bed alarm TABS alarm Wheel chair alarm - Diet - Solid Texture Continue Regular - Shower allowing shower FUNCTIONAL STATUS: UPDATED AT WEEKLY TEAM CONFERENCE - Bladder Same accident frequency: 7-Ind - No accidents in the past 7 days - Bowel Same accident frequency: 7-Ind - No accidents in the past 7 days - Walking Same score based on distance walked: 0(N/A) - Wheelchair Same score based on distance traveled: 0(N/A) FUNCTIONAL STATUS: - Self-Care A. Eating Ind B. Grooming Margarito C. Bathing sup D. Dressing - Upper sup E. Dressing - Lower Vanna F. Toileting sup - Sphincter Control G. Bladder control sup H. Bowel control sup - Transfers Control I. Bed/Chair/Wheelchair sup J. Toilet sup K. Tub/Shower Vanna - Locomotion L. Walk/Wheelchair (B) Vanna M. Stairs maxA - Communication N. Comprehension (B) Ind O. Expression (B) Ind - Social Cognition P. Social Interaction Ind Q. Problem Solving Ind R. Memory Ind - Endurance Good - Balance Fair - Safety Awareness Good QI SCORES: - Self-Care A. Eating 04-Supervision or touching assistance B. Oral hygiene 04-Supervision or touching assistance C. Toileting hygiene 04-Supervision or touching assistance E. Shower/bathe self 04-Supervision or touching assistance F. Upper body dressing 04-Supervision or touching assistance G. Lower body dressing 04-Supervision or touching assistance H. Putting on/taking off footwear 04-Supervision or touching assistance - Mobility A. Roll left and right 88-Not attempted due to medical condition or safety concerns B. Sit to lying 04-Supervision or touching assistance C. Lying to sitting on side of bed 03-Partial/moderate assistance D. Sit to stand 03-Partial/moderate assistance E. Chair/[id number] transfer 03-Partial/moderate assistance F. Toilet transfer 03-Partial/moderate assistance G. Car transfer 03-Partial/moderate assistance I. Walk 10 feet 88-Not attempted due to medical condition or safety concerns J. Walk 50 feet with two turns 88-Not attempted due to medical condition or safety concerns K. Walk 150 feet 88-Not attempted due to medical condition or safety concerns L. Walking 10 feet on uneven surfaces 88-Not attempted due to medical condition or safety concerns M. 1 step (curb) 88-Not attempted due to medical condition or safety concerns N. 4 steps 88-Not attempted due to medical condition or safety concerns O. 12 steps 88-Not attempted due to medical condition or safety concerns P. Picking up object 88-Not attempted due to medical condition or safety concerns R. Wheel 50 feet with two turns 88-Not attempted due to medical condition or safety concerns S. Wheel 150 feet 88-Not attempted due to medical condition or safety concerns - Bladder and Bowel Bladder continence 3-Incontinent daily Bowel continence 2-Frequently incontinent - Endurance Poor - Balance Poor - Safety Awareness Fair [facility] DEFICITS: Self-Care, Endurance, Balance, Safety Awareness, and Mobility SIGNATURE PANEL: (CDT)
[2022-04-01] MEDS: MEGESTROL 40 MG TAB PO SCH (20:24)
[2022-04-01] MEDS: DULOXETINE 30 MG CAP PO SCH (20:25)
[2022-04-02] MEDS: METRONIDAZOLE 500mg IVPB 500 MG/100 ML BAG IV SCH ×3 (00:10→17:39)
[2022-04-02 04:37] LABS: Magnesium 1.7 mg/dL (1.8-2.4); Potassium 3.9 mmol/L (3.5-5.1)
[2022-04-02] MEDS: LACTOSE-REDUCED FOOD 330 ML LIQUID PO SCH ×2 (08:00→20:00)
[2022-04-02] MEDS ORDERED: MAGNESIUM SULFATE 1 gm IVPB 1 GM/100 ML BAG IV ONE (08:00)
[2022-04-02] MEDS: SODIUM CHLORIDE 0.9% 10ML INJ IV SCH ×2 (08:00→19:54)
[2022-04-02] MEDS: ZINC OXIDE 20% OINTMENT 60gm TOP SCH ×2 (08:36→19:55)
[2022-04-02] MEDS: MEGESTROL 40 MG TAB PO SCH ×2 (08:36→19:54)
[2022-04-02] MEDS: APIXABAN 5 MG TABLET PO SCH ×2 (08:36→19:53)
[2022-04-02] MEDS: GABAPENTIN 300 MG CAP PO SCH ×5 (08:37→20:03)
[2022-04-02] MEDS: FERROUS SULFATE 325 MG TAB PO SCH ×2 (08:37→19:54)
[2022-04-02] MEDS: MAGNESIUM OXIDE 400 MG TAB PO SCH ×2 (08:37→19:54)
--- NOTE | 2022-04-02 09:47 | P.RH.PN ---
Estimated Length of Stay: 11 Expected Discharge Date: 04/02/22 Discharge Disposition Plan: Home Family Support: Yes Snf Goal: Mobility, Transfers, Self Care Vital Signs: Last Vital Signs Temp 97.6 F 04/01/22 20:00 Pulse 87 04/01/22 20:00 Resp 18 04/01/22 20:00 BP 105/65 04/01/22 20:00 Pulse Ox 98 04/01/22 20:00 Laboratory: Laboratory Last Values WBC 6.2 K/uL (4.3-10.9) 04/01/22 04:10 RBC 2.39 M/uL (3.86-4.86) L 04/01/22 04:10 Hgb 7.5 g/dL (12.0-15.0) L 04/01/22 04:10 Hct 22.2 % (36.0-45.0) L 04/01/22 04:10 MCV 92.6 fL (80-100) 04/01/22 04:10 MCH 31.2 pg (27.0-35.0) 04/01/22 04:10 MCHC 33.7 g/dL (32.0-36.0) 04/01/22 04:10 RDW 18.5 % (12.1-15.2) H 04/01/22 04:10 Plt Count 363 K/uL (152-406) D 04/01/22 04:10 MPV 7.8 fL (7.6-11.3) 04/01/22 04:10 Neutrophils % 69.2 % (41.7-73.7) 04/01/22 04:10 Lymphocytes % 19.6 % (15.3-44.8) 04/01/22 04:10 Monocytes % 9.3 % (3.3-12.3) 04/01/22 04:10 Eosinophils % 1.1 % (0-4.4) 04/01/22 04:10 Basophils % 0.8 % (0-1.3) 04/01/22 04:10 Absolute Neutrophils 4.3 K/uL (1.8-8.0) 04/01/22 04:10 Absolute Lymphocytes 1.2 K/uL (0.7-4.9) 04/01/22 04:10 Absolute Monocytes 0.6 K/uL (0.1-1.3) 04/01/22 04:10 Absolute Eosinophils 0.1 K/uL (0-0.5) 04/01/22 04:10 Absolute Basophils 0.0 K/uL (0-0.5) 04/01/22 04:10 Sodium 138 mmol/L (136-145) 04/02/22 04:05 Potassium 3.9 mmol/L (3.5-5.1) 04/02/22 04:05 Chloride 100 mmol/L (98-107) 04/02/22 04:05 Carbon Dioxide 31 mmol/L (21-32) 04/02/22 04:05 Anion Gap 10.9 mEq/L (5.0-15.0) D 04/02/22 04:05 BUN 4 mg/dL (7-18) L 04/02/22 04:05 Creatinine 0.19 mg/dL (0.55-1.3) L 04/02/22 04:05 Est GFR (CKD-EPI) 145 ml/min (=/>90) 04/02/22 04:05 Glucose 77 mg/dL (74-106) 04/02/22 04:05 Calcium 7.5 mg/dL (8.5-10.1) L 04/02/22 04:05 Magnesium 1.7 mg/dL (1.8-2.4) L 04/02/22 04:05 Albumin 1.5 g/dL (3.4-5.0) L 04/01/22 04:10 Prealbumin 7.2 mg/dL (20-40) L 04/01/22 04:10 Urine Color Yellow (Yellow) 03/25/22 16:06 Urine Appearance Clear (Clear) 03/25/22 16:06 Urine pH 5.5 (5.0-7.0) 03/25/22 16:06 Ur Specific [place] 1.020 (1.005-1.030) 03/25/22 16:06 Glucose (UA)(Auto) Negative (Negative) 03/25/22 16:06 Urine Ketones Negative (Negative) 03/25/22 16:06 Urine Blood Negative (Negative) 03/25/22 16:06 Urine Nitrite Negative (Negative) 03/25/22 16:06 Urine Bilirubin Negative (Negative) 03/25/22 16:06 Urine Urobilinogen 0.2 mg/dL (0.2-1.0) 03/25/22 16:06 Ur Leukocyte Esterase Negative (Negative) 03/25/22 16:06 Urine RBC <5 /HPF (NONE SEEN) 03/25/22 16:06 Urine WBC <5 /HPF (<5) 03/25/22 16:06 Ur Squamous Epith Cells 5-10 /HPF (NONE SEEN) H 03/25/22 16:06 Ur Urothelial Cells Cancelled 03/25/22 15:15 Calcium Oxalate Crystal Cancelled 03/25/22 15:15 Uric Acid Crystals Cancelled 03/25/22 15:15 Triple Phos Crystals Cancelled 03/25/22 15:15 Other Crystals Cancelled 03/25/22 15:15 Amorphous Sediment 2+ /HPF (NONE SEEN) H 03/25/22 16:06 Glitter Cells Cancelled 03/25/22 15:15 Urine Bacteria 20-50 /HPF (<20) H 03/25/22 16:06 Hyaline Casts 0-5 /LPF (NONE SEEN) 03/25/22 16:06 Fine Granular Casts Cancelled 03/25/22 15:15 Coarse Granular Casts 0-5 /LPF (NONE SEEN) 03/25/22 16:06 Waxy Casts Cancelled 03/25/22 15:15 RBC Casts Cancelled 03/25/22 15:15 WBC Casts Cancelled 03/25/22 15:15 Urine Mucus 3+ /HPF (NONE SEEN) H 03/25/22 16:06 Urine Other Cancelled 03/25/22 15:15 Urine Trichomonas Cancelled 03/25/22 15:15 Urine Yeast Cancelled 03/25/22 15:15 Ur Yeast w Hyphae Cancelled 03/25/22 15:15 Urine Yeast (Budding) Cancelled 03/25/22 15:15 Urine Sperm Cancelled 03/25/22 15:15 Urine Culture Reflexed Not needed 03/25/22 16:06 Urine Total Volume Cancelled 03/25/22 15:15 Urine Total Protein Negative (Negative) 03/25/22 16:06 C. difficile Ag & Toxin Ag neg:tox neg (NEG : NEG) 03/27/22 19:21 SARS-CoV-2 Rap RNA(RT-PCR) Negative (NEGATIVE) 04/01/22 08:50 Weight: 191 lb 3.2 oz Wound Present: Yes Closed Surgical Incision Present: No Physician Update: Labs reviewed. Bed mobility, sit to stand OTTO. Walking SBA, steps SBA. Will be discharge home today. Out patient therapy. Independent with ADLs. Comment: On zinc oxide. Functional Improvement: Patient has progressed well here, and demonstrates good overall technique, balance, and safety awareness. 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 Please see the Rehabilitation Signature page for all necessary signatures.
[2022-04-02] MEDS ORDERED: KCL 20 MEQ/100 mL IVPB 20 MEQ/100 ML BAG IV SCH (10:00)
[2022-04-02] MEDS: DULOXETINE 30 MG CAP PO SCH ×2 (19:55→20:02)
[2022-04-03] MEDS: METRONIDAZOLE 500mg IVPB 500 MG/100 ML BAG IV SCH ×2 (00:37→08:56)
[2022-04-03] MEDS: APIXABAN 5 MG TABLET PO SCH (07:24)
[2022-04-03 07:52] VITALS: TEMP 97
[2022-04-03] MEDS: SODIUM CHLORIDE 0.9% 10ML INJ IV SCH (08:00)
[2022-04-03] MEDS: LACTOSE-REDUCED FOOD 330 ML LIQUID PO SCH (08:00)
[2022-04-03] MEDS: ZINC OXIDE 20% OINTMENT 60gm TOP SCH (08:00)
[2022-04-03] MEDS: MEGESTROL 40 MG TAB PO SCH (08:00)
[2022-04-03] MEDS: GABAPENTIN 300 MG CAP PO SCH (09:00)
[2022-04-03] MEDS: FERROUS SULFATE 325 MG TAB PO SCH (09:03)
[2022-04-03] MEDS: MAGNESIUM OXIDE 400 MG TAB PO SCH (09:42)
[2022-04-03 18:18] VITALS: BP 93/57
--- NOTE | 2022-04-09 18:19 | R.DS ---
DISCHARGE SUMMARY FACILITY [facility] MR# [id number] NAME OMERO ESPANA ADDRESS [address] [place] [address] [address] [id number] PHONE DATE OF 1970 AGE 51 SSN# [id number] GENDER Female DEXTERITY Unknown dexterity MARITAL STATUS Single (Never ) RACE White ENCOUNTER PHYSICIAN Dr. Clint Sandoval M.D. REFERRING DOCTOR Kelsey Belcher REFERRING FACILITY [facility] DISCHARGE DIAGNOSIS: - Medically Complex Conditions 17 - Neoplasms (17.2) C20 Malignant Neoplasm of Rectum. DISCHARGE COMORBIDITIES: - Tier 2 Enterocolitis due to Clostridium difficile (A04.7) DATE OF ADMISSION 03/25/2022 13:24 (CDT) MEDICATION ALLERGIES: No Known Drug Allergies (NKDA) ENVIRONMENTAL ALLERGIES: - Substance Allergies None Known - Other Allergies None Known DISCHARGE MEDICATIONS: Other- ContinueSee attached MAR (Medication Administration Record). NURSING: - Shower allowing shower - PICC Line care per protocol PRECAUTIONS: - Fall Precaution Bed alarm TABS alarm Wheel chair alarm - Aspiration Precaution HOB (head of bed) elevated above 30 degrees while receiving tube feed No straws - DVT Risk due to restricted mobility and age - Bleeding Risk Eliquis - Isolation Precaution Contact precaution - Incontinence Bladder Incontinence Bowel Incontinence - Skin Breakdown Risk due to restricted mobility and age ACTIVITIES OOB only with supervision THERAPIES: - Dietary and Nutrition Adequate Nutrition Nutritional Education Nutritional Supplements - Occupational Therapy Cognitive Retraining Patient needs Occupational Therapy for a daily minimum of 1.5 hours at least 5 out of 7 days, to impr ove Activities of Daily Living, including: Eating, Grooming, Bathing, Dressing, Toileting, Toilet Tra nsfers, Community Reintegration, Higher functional activities, Adaptive Equipment, Splinting, Househo ld Tasks, and Other activities as determined Visual Perceptual Training - Speech Therapy Cognitive Training Expressive Language Skills Memory Strategies Patient needs Speech Therapy for a daily minimum of 1.5 hours at least 5 out of 7 days, to improve: S wallowing, Cognition, Language Skills, and Compensatory Strategies Receptive Language Skills Speech Intelligibility Training - Physical Therapy Patient needs Physical Therapy for a daily minimum of 1.5 hours at least 5 out of 7 days, to improve: Mobility, Strengthening, Transfers, Stretching, ROM, Endurance, Ability to manage stairs, Gait, and Balance HISTORY OF PRESENT ILLNESS: Pt. is a 51 yo white female.On 03/19/2022 she was admitted to [facility] with diagnos is C20 Malignant Neoplasm of Rectum.Her impairment category is Medically Complex Conditions 17 - Romeo plasms (17.2).Pre-morbidly, Pt. was independent/mod-I in Locomotion, Balance, and Self-Care; and she had good Safety Awareness, Endurance, Sphincter Control, Transfers Control, and Balance.Currently, sh e has deficits of Locomotion, Safety Awareness, Balance, Transfers Control, Sphincter Control, Endura nce, and Self-Care.Pt. is now referred to [facility] for acute in-patient reha bilitation in order to maximize patient's functional independence in activities of daily living, stre ngth, ROM, and mobility.- Rehab Goal Patient has realistic goal of being discharged at assistance level 6-Margarito to reside at Home with Fam hannah/Relatives. ASPIRATION PRECAUTION: On 03/24/2022 the following precautions were added for the patient: Aspiration Precaution - HOB (head of bed) elevated above 30 degrees while receiving tube feed, and Aspiration Precaution - No straws. On 03/26/2022 the following precautions were added for the patient: Aspiration Precaution - HOB (hea d of bed) elevated above 30 degrees while receiving tube feed, and Aspiration Precaution - No straws . On 03/29/2022 the following precautions were removed for the patient: Aspiration Precaution - HOB (h ead of bed) elevated above 30 degrees while receiving tube feed, and Aspiration Precaution - No stra ws. On 03/30/2022 the following precautions were added for the patient: Aspiration Precaution - HOB (hea d of bed) elevated above 30 degrees while receiving tube feed, and Aspiration Precaution - No straws . On 03/24/2022 the following precautions were removed for the patient: Aspiration Precaution - HOB (he ad of bed) elevated above 30 degrees while receiving tube feed, Aspiration Precaution - No straws, As piration Precaution - HOB (head of bed) elevated above 30 degrees while receiving tube feed, and Asp iration Precaution - No straws. The following precautions were added for the patient: Bleeding Risk - Eliquis. On 03/26/2022 the following precautions were added for the patient: Bleeding Risk - Eliquis. On 03/29/2022 the following precautions were removed for the patient: Bleeding Risk - Eliquis. On 03/30/2022 the following precautions were added for the patient: Bleeding Risk - Eliquis. On 03/24/2022 the following precautions were removed for the patient: Bleeding Risk - Eliquis, and Bl eeding Risk - Eliquis. The following precautions were added for the patient: DVT Risk - due to restricted mobility and age. On 03/26/2022 the following precautions were added for the patient: DVT Risk - due to restricted mob ility and age. On 03/29/2022 the following precautions were removed for the patient: DVT Risk - due to restricted m obility and age. On 03/30/2022 the following precautions were added for the patient: DVT Risk - due to restricted mob ility and age. The following precautions were removed for the patient: DVT Risk - due to restricted mobility and age , and DVT Risk - due to restricted mobility and age. On 03/24/2022 the following precautions were added for the patient: Fall Precaution - Wheel chair ala rm, Fall Precaution - Bed alarm, and Fall Precaution - TABS alarm. On 03/29/2022 the following precautions were added for the patient: Fall Precaution - Bed alarm, Fal l Precaution - TABS alarm, and Fall Precaution - Wheel chair alarm. On 03/24/2022 the following precautions were removed for the patient: Fall Precaution - Bed alarm, Fa ll Precaution - TABS alarm, Fall Precaution - Wheel chair alarm, Fall Precaution - Bed alarm, Fall P recaution - TABS alarm, and Fall Precaution - Wheel chair alarm. The following precautions were added for the patient: Incontinence - Bladder Incontinence, and Incont inence - Bowel Incontinence. On 03/26/2022 the following precautions were added for the patient: Incontinence - Bladder Incontine nce, and Incontinence - Bowel Incontinence. On 03/29/2022 the following precautions were removed for the patient: Incontinence - Bladder Inconti nence, and Incontinence - Bowel Incontinence. On 03/30/2022 the following precautions were added for the patient: Incontinence - Bladder Incontine nce, and Incontinence - Bowel Incontinence. On 03/24/2022 the following precautions were removed for the patient: Incontinence - Bladder Incontin ence, Incontinence - Bowel Incontinence, Incontinence - Bladder Incontinence, and Incontinence - Jl wel Incontinence. The following precautions were added for the patient: Isolation Precaution - Contact precaution. On 03/26/2022 the following precautions were added for the patient: Isolation Precaution - Contact p recaution. On 03/29/2022 the following precautions were removed for the patient: Isolation Precaution - Contact precaution. On 03/30/2022 the following precautions were added for the patient: Isolation Precaution - Contact p recaution. On 03/24/2022 the following precautions were removed for the patient: Isolation Precaution - Contact precaution, and Isolation Precaution - Contact precaution. The following precautions were added for the patient: Skin Breakdown Risk - due to restricted mobilit y and age. On 03/26/2022 the following precautions were added for the patient: Skin Breakdown Risk - due to res tricted mobility and age. On 03/29/2022 the following precautions were removed for the patient: Skin Breakdown Risk - due to r estricted mobility and age. On 03/30/2022 the following precautions were added for the patient: Skin Breakdown Risk - due to res tricted mobility and age. The following precautions were removed for the patient: Skin Breakdown Risk - due to restricted mobil ity and age, and Skin Breakdown Risk - due to restricted mobility and age. BLEEDING RISK: DVT RISK: DIET - LIQUID TEXTURE: On 03/24/2022 Pt was upgraded to Regular Diet - Liquid Texture. DIET - SOLID TEXTURE: On 03/24/2022 Pt was upgraded to Regular Diet - Solid Texture. DIET TYPE: On 03/24/2022 Pt was upgraded to Regular Diet Type. FALL PRECAUTION: INCONTINENCE: ISOLATION PRECAUTION: SKIN BREAKDOWN RISK: TUBE FEED: On 03/24/2022 Pt was changed to N/A Tube Feed. DISCHARGE PHYSICAL EXAM - Gen Alert and awake Lying in bed No apparent distress Oriented to: person, time, and place - Skin No breakdown No abnormalities - Eyes No abnormalities - ENMT No abnormalities - Neck No stiffness - CVS RRR - Chest No abnormalities - Resp Clear to auscultation - Abd + bowel sounds - GI Soft Deferred - No abnormalities - Ext No significant edema - MSK 4+/5 weakness in both lower extremities. - Neuro 4/5 strength bilaterally upper and lower extremities. - Psych No abnormalities FUNCTIONAL STATUS: - Self-Care A. Eating 7-Ind B. Grooming 6-Margarito C. Bathing 6-Margarito D. Dressing - Upper 6-Margarito E. Dressing - Lower 6-Margarito F. Toileting 6-Margarito - Sphincter Control G. Bladder control 6-Margarito H. Bowel control 6-Margarito - Transfers Control I. Bed/Chair/Wheelchair 6-Margarito J. Toilet 6-Margarito K. Tub/Shower 6-Margarito - Locomotion L. Walk/Wheelchair (B) 6-Margarito M. Stairs 5-sup - Communication N. Comprehension (B) 7-Ind O. Expression (B) 7-Ind - Social Cognition P. Social Interaction 7-Ind Q. Problem Solving 7-Ind R. Memory 7-Ind - Endurance Good - Balance Good - Safety Awareness Good QI SCORES: - Self-Care A. Eating 04-Supervision or touching assistance B. Oral hygiene 04-Supervision or touching assistance C. Toileting hygiene 04-Supervision or touching assistance E. Shower/bathe self 04-Supervision or touching assistance F. Upper body dressing 04-Supervision or touching assistance G. Lower body dressing 04-Supervision or touching assistance H. Putting on/taking off footwear 04-Supervision or touching assistance - Mobility A. Roll left and right 88-Not attempted due to medical condition or safety concerns B. Sit to lying 04-Supervision or touching assistance C. Lying to sitting on side of bed 03-Partial/moderate assistance D. Sit to stand 03-Partial/moderate assistance E. Chair/lzs-to-bkhgi transfer 03-Partial/moderate assistance F. Toilet transfer 03-Partial/moderate assistance G. Car transfer 03-Partial/moderate assistance I. Walk 10 feet 88-Not attempted due to medical condition or safety concerns J. Walk 50 feet with two turns 88-Not attempted due to medical condition or safety concerns K. Walk 150 feet 88-Not attempted due to medical condition or safety concerns L. Walking 10 feet on uneven surfaces 88-Not attempted due to medical condition or safety concerns M. 1 step (curb) 88-Not attempted due to medical condition or safety concerns N. 4 steps 88-Not attempted due to medical condition or safety concerns O. 12 steps 88-Not attempted due to medical condition or safety concerns P. Picking up object 88-Not attempted due to medical condition or safety concerns R. Wheel 50 feet with two turns 88-Not attempted due to medical condition or safety concerns S. Wheel 150 feet 88-Not attempted due to medical condition or safety concerns - Bladder and Bowel Bladder continence 3-Incontinent daily Bowel continence 2-Frequently incontinent - Endurance Poor - Balance Poor - Safety Awareness Fair DISCHARGE INSTRUCTIONS: - N/A Eliquis 5 mg bid. IV magnesium 1 gram and potassium 40 meq every 2-3 days with blood work sent to Dr. Sandoval's office. Chest CT 03-29-22 shwed no evidence of pulmonary embolism. DISCHARGE PLAN, FOLLOW UP CARE PROVISIONS: - Estimated Length of Stay (days) 13. - Consensus on plan Discharge plan has been discussed with primary caregiver. Patient/Family is in agreement with the milton n. Primary caregiver is in agreement with the plan. - Patient/Family Goals Return home independently. - Potential barriers to discharge Any lines must be removed or patient/caregiver needs to be educated on line care. - Planned Living Setting Upon Discharge Home, to live with Family/Relatives. Transitional Living. SIGNATURE PANEL: (CDT)
== END 2022-04-03 10:45 | disposition home or self-care (01) | DRG 948 ==
LOC: 5TH 03-25 13:24
PROVIDERS: ADMIT Psychiatry & Neurology Neurology with Special Qualifications in Child Neurology; ATTEND Psychiatry & Neurology Neurology with Special Qualifications in Child Neurology
DX: R53.81 Other malaise (principal); C20 Malignant neoplasm of rectum; E11.9 Type 2 diabetes mellitus without complications; I10 Essential (primary) hypertension; G47.30 Sleep apnea, unspecified; Z98.84 Bariatric surgery status; Z20.822 Contact with and (suspected) exposure to COVID-19
CPT/HCPCS: 36415; 71275; 80048; 81003; 81015; 82040; 82306; 82607; 83735; 84134; 85025; 87086; 87088; 87324; 87449; 94010; 97110; 97112; 97116; 97161; 97165; 97530; J1940; J3475; J3480; J3490; J7050; J8499; Q9967; U0003

== ENCOUNTER 2022-06-03 07:45 | Day surgery (SDC) | payer BC ==
[2022-06-03] MEDS ORDERED: NA CHLORIDE 0.9% 500 ML ONE (08:07)
[2022-06-03 09:46] VITALS: TEMP 98.6
[2022-06-03 09:53] VITALS: BMI 23.3
[2022-06-03] MEDS ORDERED: ALBUTEROL 2.5 MG/3 ML NEB SOL ONE (11:25)
[2022-06-03 14:38] VITALS: BP 81/52; O2SAT 98
[2022-06-03] MEDS ORDERED: HEPARIN 500 UNIT/5 ML SYR IV ONE (14:54)
[2022-06-03 15:11] LABS: Hematocrit 24.1 % (36.0-45.0)
== END 2022-06-03 15:00 | disposition home or self-care (01) ==
LOC: DS 07:45
PROVIDERS: ATTEND Internal Medicine Hematology & Oncology
DX: D50.0 Iron deficiency anemia secondary to blood loss (chronic) (principal); D64.81 Anemia due to antineoplastic chemotherapy; C20 Malignant neoplasm of rectum; C79.31 Secondary malignant neoplasm of brain; C78.7 Secondary malignant neoplasm of liver and intrahepatic bile duct
CPT/HCPCS: 36415; 86900; 86850; 86901; 85018; 85014; 86922 ×2; 36430; J1642; P9016 ×2; J7050

== ENCOUNTER 2022-06-18 09:30 | Emergency (ER) | payer BC ==
--- OUTSIDE RECORDS SUMMARY | 2022-06-18 09:36 | XMS REPORT | Continuity of Care Document ---
:1970 Author Organization [facility] t Address [address] [place] [address] Care Team Providers Name Role Phone ALKA LOPEZ Primary Care Physician Unavailable Alka Lopez Attending Clinician Unavailable ALYSSA TAMEZ Attending Clinician Unavailable Ash Beltrán MD Attending Clinician HALLIE ALVES Attending Clinician Unavailable ANUSHA DAWSON Attending Clinician Unavailable RICHARD SANCHES Attending Clinician Unavailable ASH BELTRÁN Attending Clinician Unavailable ASH BELTRÁN Attending Clinician Unavailable DAPHNEY HOOKS Attending Clinician Unavailable ALYSSA TAMEZ Attending Clinician Unavailable MAVIS PATEL Attending Clinician Unavailable Alyssa Tamez MD Attending Clinician Jolene Cao RD Attending Clinician JOLENE CAO Attending Clinician Unavailable ALYSSA TAMEZ Admitting Clinician Unavailable RAMY SALINAS Admitting Clinician Unavailable Payers Payer Name Policy Type Policy Number Effective Date Expiration Date Asha AKBAR [id number] 2018 00:00:00 HMO/POS/OPEN ACCESS BCBS OS [id number] 2021 00:00:00 POS/PPO/EPO OPEN ACCESS [id number] HMO/POS/EPO/PPO - AETNA NETWORK OPEN [id number] ACCESS - CIGNA CVCP-AETNA [id number] AETNA [facility] [id number] 2020 00:00:00 ACCESS Problems Condition Condition Condition Status Onset Resolution Last Treating Co mments Source Name Details Category Date Date Treatment Clinician Date Rectal Rectal Disease Active [facility] cancer cancer 2-22 [place] (HCCode) (HCCode) 00:00: of 00 Medicin e Allergies, Adverse Reactions, Alerts Allergy Allergy Status Severity Reaction(s) Onset Inactive Treating Comm ents Source Name Type Date Date Clinician NO KNOWN Allergy Active [facility] Social History Social Habit Start Date Stop Date Quantity Comments Source History [facility] ge Alcohol Frequency of Medi cine History [facility] ge Alcohol Std Drinks of Med icine History [facility] Alcohol Binge of Medicine Exposure to 2022-04-16 2022-04-26 Not sure [facility] e SARS-CoV-2 (event) 00:00:00 10:59:00 of Med icine Alcohol intake 2022-04-26 2022-04-26 Current drinker [facility] 00:00:00 00:00:00 of alcohol of Medicine (finding) Cigarette 2021-08-17 2021-08-17 [facility] pack-years 00:00:00 00:00:00 of Medicine Tobacco use and 2021-08-17 2021-08-17 Smokeless tobacco [facility] exposure 00:00:00 00:00:00 non-user of Medicine Alcohol Comment 2020-10-09 2020-10-09 social [facility] 00:00:00 00:00:00 of Medicine Sex [birth year] [facility] 00:00:00 00:00:00 of Medicine Smoking Status Start Date Stop Date Source Never smoked tobacco [facility] ege of Medicine Medications Ordered Filled Start Stop Current Ordering Indication Dosage Frequency Signature Comments Components Source Medication Medication Date Date Medication? Clinician (SIG) Name Name hydrocodone Yes 1{tbl} Take 1 [facility] -acetaminop 6-20 Tablet by Col linda muro (NORCO) 11:15: mouth of 5-325 mg 56 every 4 Medicin tablet hours as e needed for Pain. gabapentin Yes 300mg Take 300 [facility] (NEURONTIN) 6-20 mg by [place] 300 MG 11:15: mouth 3 of capsule 43 times Medicin daily. e Apixaban Yes 2.5mg Take 2.5 [facility] (ELIQUIS) 6-20 mg by [place] 2.5 MG TABS 11:15: mouth two o f 43 times Medicin daily. e sertraline Yes 100mg Take 100 [facility] (ZOLOFT) 6-20 mg by [place] 100 MG 11:15: mouth of tablet 43 daily. Medicin Last dose e 07/2021 sertraline Yes 100mg Take 100 [facility] (ZOLOFT) 2-21 mg by [place] 100 MG 14:49: mouth of tablet 33 daily. Medicin Last dose e 07/2021 gabapentin Yes 300mg Take 300 [facility] (NEURONTIN) 2-21 mg by [place] 300 MG 14:46: mouth 3 of capsule 23 times Medicin daily. e Apixaban Yes 2.5mg Take 2.5 [facility] (ELIQUIS) 2-21 mg by [place] 2.5 MG TABS 14:46: mouth two o f 23 times Medicin daily. e prochlorper 2020-11 Yes 10mg Take 1 [facility] azine 2-30 Tablet by [place] (COMPAZINE) 00:00: mouth of 10 MG 00 every 6 Medicin tablet hours as e needed for Nausea for up to 30 doses. prochlorper 2020-11 Yes 10mg Take 1 [facility] azine 2-30 Tablet by [place] (COMPAZINE) 00:00: mouth of 10 MG 00 every 6 Medicin tablet hours as e needed for Nausea for up to 30 doses. Vitamin D, 2020-11 Yes 1{capsu Take 1 [facility] 0-11 le} capsule by Co llege rol, 1.25 15:23: mouth of MG (68992 06 every 7 Medicin [place]) CAPS days. e pantoprazol 2020- No 20mg Take 1 [place] [facility] e 07-30 Tablet by [place] (PROTONIX) 00:00: 05:59 mouth of 20 MG 00 :00 daily for Medicin tablet 90 days. e Take everyday for 3 months pantoprazol 2020- No 20mg Take 1 [place] [facility] e 07-30 Tablet by [place] (PROTONIX) 00:00: 05:59 mouth of 20 MG 00 :00 daily for Medicin tablet 90 days. e Take everyday for 3 months pantoprazol 2020- No 20mg Take 1 [place] [facility] e 07-30 Tablet by [place] (PROTONIX) 00:00: 05:59 mouth of 20 MG 00 :00 daily for Medicin tablet 90 days. e Take everyday for 3 months tramadol 2020- No 1{tbl} Take 1 [facility] (ULTRAM) 50 07-30 10- Tablet by Co llege MG tablet 00:00: 04:59 mouth of 00 :00 every 8 Medicin hours as e needed for Pain for up to 7 days. Take after surgery as needed for pain ondansetron 2020- No 4mg Take 1 [place] [facility] (ZOFRAN-ODT 07-30 10- Tablet by Co llege ) 4 mg 00:00: 04:59 mouth of disintegrat 00 :00 every 8 Medic in ing tablet hours as e needed for Nausea for up to 7 days. Take after surgery as needed for nausea tramadol 2020- No 1{tbl} Take 1 [facility] (ULTRAM) 50 - 10- Tablet by Co llege MG tablet 00:00: 04:59 mouth of 00 :00 every 8 Medicin hours as e needed for Pain for up to 7 days. Take after surgery as needed for pain ondansetron 2020- No 4mg Take 1 [place] [facility] (ZOFRAN-ODT 07-30 10- Tablet by Co llege ) 4 mg 00:00: 04:59 mouth of disintegrat 00 :00 every 8 Medic in ing tablet hours as e needed for Nausea for up to 7 days. Take after surgery as needed for nausea aprepitant 2020- No 40mg Take 1 [facility] (EMEND) 40 07-30-24 capsule by Co llege MG capsule 00:00: [...] surgery Scopolamine 2020- No 1{patch Place 1 [facility] 1 MG/3DAYS 07-30 } Patch onto Co llege [id number] 00:00: 04:59 the skin of 00 :00 once for 1 Medicin dose. e Apply behind ear. Remove after 3 days- take as needed for nausea Vitamin D, 2020- Yes [id number] TAKE 1 [facility] Ergocalcife 6-03 CAPSULE BY Julien moses, 1.25 00:00: MOUTH of MG (79151 00 EVERY 7 Medicin [place]) CAPS DAYS e Vitamin D, 2020- Yes [id number] TAKE 1 [facility] 6-03 CAPSULE BY Julien moses, 1.25 00:00: MOUTH of MG (58291 00 EVERY 7 Medicin UT) CAPS DAYS e Vitamin D, 2020- Yes [id number] TAKE 1 [facility] 6-03 CAPSULE BY Julien moses, 1.25 00:00: MOUTH of MG (46078 00 EVERY 7 Medicin [place]) CAPS DAYS e Vitamin D, 2020- No [id number] TAKE 1 [facility] Ergocalcife 6-03 10-11 CAPSULE BY Alfonso moses, 1.25 00:00: 00:00 MOUTH of MG (46654 00 :00 EVERY 7 Medicin UT) CAPS [...] e sertraline 2019-11 Yes 1{tbl} Take 1 [place] [facility] (ZOLOFT) 1-09 Tablet by Colleg e 100 MG 00:00: mouth of tablet 00 daily. Medicin e sertraline 2019-11 Yes 1{tbl} Take 1 [place] [facility] (ZOLOFT) 1-09 Tablet by Colleg e 100 MG 00:00: mouth of tablet 00 daily. Medicin e sertraline 2019-11 Yes 1{tbl} Take 1 [place] [facility] (ZOLOFT) 1-09 Tablet by Colleg e 100 MG 00:00: mouth of tablet 00 daily. Medicin e sertraline 2019-11 Yes 1{tbl} Take 1 [place] [facility] (ZOLOFT) 1-09 Tablet by Colleg e 100 MG 00:00: mouth of tablet 00 daily. Medicin e sertraline 2019-11 Yes 1{tbl} Take 1 [place] [facility] (ZOLOFT) 1-09 Tablet by Colleg e 100 MG 00:00: mouth of tablet 00 daily. Medicin e Continuous 2019-11 Yes 1{strip 1 Strip [facility] Blood Gluc 0-12 } See Admin Eze ege Sensor 00:00: Instructio of (FREESTYLE 00 ns. Medicin CAROL 2 e SENSOR SYSTM) [facility] Continuous 2019-11 Yes 1{strip 1 Strip [facility] Blood Gluc 0-12 } See Admin Eze ege Sensor 00:00: Instructio of (FREESTYLE 00 ns. Medicin CAROL 2 e SENSOR SYSTM) [facility] Continuous 2019-11- No 1{strip 1 Strip [facility] Blood Gluc 0-12 -23 } See Admin Col lege Sensor 00:00: 00:00 Instructio of (FREESTYLE 00 :00 ns. Medicin CAROL 2 e SENSOR SYSTM) [facility] Continuous 2019-11- No 1{strip 1 Strip [facility] Blood Gluc 0-12 23 } See Admin Col lege Sensor 00:00: 00:00 Instructio of (FREESTYLE 00 :00 ns. Medicin CAROL 2 e SENSOR SYSTM) [facility] Atorvastati Atorvastati Yes Alka 1 tablet Common n Calcium n Calcium 07-15 [facility] Sp[facility] 00:00: - [facility] 00 [facility] Zoloft Zoloft Yes Alka Take 1/2 Com mon 07-15 Lopez tab QD x 1 Spirit 00:00: week then - [facility] 00 take 1 tab [facility] Xigduo XR Xigduo XR 2020- No Alka 1 tablet Common 9-08 12-06 Lopez [facility] 00:00: 00:00 - [facility] 00 :00 [facility] Immunizations Ordered Immunization Filled Immunization Date Status Commen ts Source Name Name PNEUMAVAX 23 PNEUMAVAX 23 2020-06-24 Completed Common Spi rit 00:00:00 - [facility] Vital Signs Vital Name Observation Time Observation Value Comments Source HEIGHT 2021-08-04 06:30:00 167.6 cm WEIGHT 2021-08-04 06:30:00 114.76 kg HEIGHT 2021-08-03 08:40:00 167 cm WEIGHT 2021-08-03 08:40:00 102 kg Systolic blood 2022-04-26 16:11:00 103 mm[Hg] [facility] pressure Medicine Diastolic blood 2022-04-26 16:11:00 70 mm[Hg] [facility] Medicine Heart rate 2022-04-26 16:11:00 102 /min [facility] ollege of Medicine Body height 2022-04-26 16:11:00 [facility] Body weight 2022-04-26 16:11:00 65.772 [facility] BMI 2022-04-26 16:11:00 23.40 kg/m2 [facility] HEIGHT 2022-03-19 12:06:00 167.6 cm WEIGHT 2022-03-19 12:06:00 72.576 kg HEIGHT 2022-03-19 12:06:00 167.6 cm WEIGHT 2022-03-19 12:06:00 72.576 kg Systolic blood 2021-12-28 20:37:00 118 mm[Hg] [facility] pressure Medicine Diastolic blood 2021-12-28 20:37:00 73 mm[Hg] [facility] Medicine Heart rate 2021-12-28 20:37:00 90 /min [facility] of Medicine Body temperature 2021-12-28 20:37:00 36.89 [facility] Body height 2021-12-28 20:37:00 167.6 cm [facility] of Medicine Body weight 2021-12-28 20:37:00 85.367 [facility] BMI 2021-12-28 20:37:00 30.38 kg/m2 [facility] Systolic blood 2021-08-17 20:11:00 115 mm[Hg] [facility] pressure Medicine Diastolic blood 2021-08-17 20:11:00 75 mm[Hg] [facility] pressure Medicine Heart rate 2021-08-17 20:11:00 65 /min [facility] Body temperature 2021-08-17 20:11:00 36.83 [facility] Body height 2021-08-17 20:11:00 167.6 cm [facility] Body weight 2021-08-17 20:11:00 108.41 kg [facility] BMI 2021-08-17 20:11:00 38.58 kg/m2 [facility] HEIGHT 2021-08-04 06:30:00 167.6 cm WEIGHT 2021-08-04 06:30:00 114.76 kg HEIGHT 2021-08-03 08:40:00 167 cm WEIGHT 2021-08-03 08:40:00 102 kg Systolic blood 2021 17:49:00 116 mm[Hg] [facility] pressure Medicine Diastolic blood 2021 17:49:00 79 mm[Hg] [facility] Medicine Heart rate 2021 17:49:00 82 /min [facility] Body temperature 2021 17:49:00 36.56 [facility] Body height 2021 17:49:00 167.6 cm [facility] Body weight 2021 17:49:00 114.76 [facility] BMI 2021 17:49:00 40.84 kg/m2 [facility] Systolic blood 2020-10-09 14:14:00 117 mm[Hg] [facility] of pressure Medicine Diastolic blood 2020-10-09 14:14:00 77 mm[Hg] [facility] pressure Medicine Heart rate 2020-10-09 14:14:00 98 /min [facility] Medicine Body temperature 2020-10-09 14:14:00 36.83 [facility] [place] of Medicine Body height 2020-10-09 14:14:00 167.6 cm [facility] ol[facility] of Medicine Body weight 2020-10-09 14:14:00 108.591 kg [facility] Medicine BMI 2020-10-09 14:14:00 38.64 kg/m2 [facility] Medicine Systolic blood 2020-10-09 14:14:00 117 mm[Hg] [facility] pressure Medicine Diastolic blood 2020-10-09 14:14:00 77 mm[Hg] [facility] pressure Medicine Heart rate 2020-10-09 14:14:00 98 /min [facility] Body temperature 2020-10-09 14:14:00 36.83 [facility] [place] of Medicine Body height 2020-10-09 14:14:00 167.6 cm [facility] Body weight 2020-10-09 14:14:00 108.591 kg [facility] BMI 2020-10-09 14:14:00 38.64 kg/m2 [facility] Procedures This patient has no known procedures. Plan of Care Planned Activity Planned Date Details Comments Source Future Scheduled 2022-04-29 Screening for malignant [facility] Test 21:06:25 neoplasm of colon of Medicin e (procedure) [code = 197404388] Future Scheduled 2022-04-29 Screening for malignant [facility] Test 21:06:25 neoplasm of breast of Medici ne (procedure) [code = 925366471] Future Scheduled 2022-04-29 Hepatitis C screening Ba [facility] Test 21:06:25 (procedure) [code = of Medic ine 923962536] Future Scheduled 2022-04-29 Human immunodeficiency B [facility] Test 21:06:25 virus screening of Medicine (procedure) [code = 666199184] Future Scheduled 2022-04-29 Screening for malignant [facility] Test 21:06:25 neoplasm of cervix of Medici ne (procedure) [code = 293569421] Future Scheduled 2022-04-29 COVID-19 Vaccine (3 - [facility] [place] Test 21:06:25 Booster for Moderna of Medic ine series) [code = COVID-19 Vaccine (3 - Booster for Moderna series)] Future Scheduled 2022-04-29 FLU VACCINE > 6 MONTHS [facility] Test 21:06:25 [code = FLU VACCINE > 6 of M edicine MONTHS] Future Scheduled 2022-04-29 ZOSTER VACCINE (1 of 2) [facility] Test 21:06:25 [code = ZOSTER VACCINE of Me dicine (1 of 2)] Future Scheduled 2022-04-29 TETANUS SHOT (ADULT) [facility] Test 21:06:25 [code = TETANUS SHOT of Medi cine (ADULT)] Future Scheduled 2022-02-15 CT CHEST W ABD/PELVIS Expected: Ba [facility] Test 00:00:00 WO/W [code = 21296] 02/15/2022, of Medic ine Expires: 12/28/2022 Future Scheduled 2021-12-29 Screening for malignant [facility] Test 07:17:16 neoplasm of colon of Medicin e (procedure) [code = 426502093] Future Scheduled 2021-12-29 Screening for malignant [facility] Test 07:17:16 neoplasm of breast of Medici ne (procedure) [code = 382902231] Future Scheduled 2021-12-29 Hepatitis C screening [facility] Test 07:17:16 (procedure) [code = of Medic ine 131434252] Future Scheduled 2021-12-29 Human immunodeficiency B [facility] Test 07:17:16 virus screening of Medicine (procedure) [code = 907438787] Future Scheduled 2021-12-29 Screening for malignant [facility] Test 07:17:16 neoplasm of cervix of Medici ne (procedure) [code = 857030235] Future Scheduled 2021-12-29 COVID-19 Vaccine (3 - Ba [facility] Test 07:17:16 Booster for Moderna of Medic ine series) [code = COVID-19 Vaccine (3 - Booster for Moderna series)] Future Scheduled 2021-12-29 [facility] 07:17:16 [code = FLU VACCINE > 6 of M edicine MONTHS] Future Scheduled 2021-12-29 ZOSTER VACCINE (1 of 2) [facility] Test 07:17:16 [code = ZOSTER VACCINE of Me dicine (1 of 2)] Future Scheduled 2021-12-29 BMI FOLLOW UP PLAN [facility] Test 07:17:16 [code = BMI FOLLOW UP of Med icine PLAN] Future Scheduled 2021-12-29 TETANUS SHOT (ADULT) [place] [facility] Test 07:17:16 [code = TETANUS SHOT of Medi cine (ADULT)] Future Scheduled 2021-12-28 WILD 1 [code = NOCPT] Ordered: [facility] Test 16:04:25 12/28/2021 of Medicine Future Scheduled 2021-12-28 TEMPUS XT TISSUE NGS Ordered: [place] [facility] Test 15:52:56 [code = 62086563] 12/28/2021 of Medicin e Future Scheduled 2021-08-17 BMI FOLLOW UP PLAN [facility] Test 15:15:29 [code = BMI FOLLOW UP of Med icine PLAN] Future Scheduled 2021-08-17 Screening for malignant [facility] Test 15:13:47 neoplasm of colon of Medicin e (procedure) [code = 466556775] Future Scheduled 2021-08-17 Screening for malignant [facility] Test 15:13:47 neoplasm of breast of Medici ne (procedure) [code = 614279399] Future Scheduled 2021-08-17 TETANUS SHOT (ADULT) [place] [facility] Test 15:13:47 [code = TETANUS SHOT of Medi cine (ADULT)] Future Scheduled 2021-08-17 Hepatitis C screening [facility] Test 15:13:47 (procedure) [code = of Medic ine 695232921] Future Scheduled 2021-08-17 [facility] 15:13:47 virus screening of Medicine (procedure) [code = 813293465] Future Scheduled 2021-08-17 Screening for malignant [facility] Test 15:13:47 neoplasm of cervix of Medici ne (procedure) [code = 509039293] Future Scheduled 2021-08-17 FLU VACCINE > 6 MONTHS [facility] Test 15:13:47 [code = FLU VACCINE > 6 of M edicine MONTHS] Future Scheduled 2021-08-17 ZOSTER VACCINE (1 of 2) [facility] Test 15:13:47 [code = ZOSTER VACCINE [...] colon of Medicin e (procedure) [code = 267214458] Future Scheduled 2021 Screening for malignant [facility] Test 12:49:38 neoplasm of breast of Medici ne (procedure) [code = 901358626] Future Scheduled 2021 TETANUS SHOT (ADULT) [place] [facility] [employer] Test 12:49:38 [code = TETANUS SHOT of Medi cine (ADULT)] Future Scheduled 2021 Hepatitis C screening [facility] Test 12:49:38 (procedure) [code = of Medic ine 577238013] Future Scheduled 2021 Human immunodeficiency [facility] Test 12:49:38 virus screening of Medicine (procedure) [code = 161821053] Future Scheduled 2021 Screening for malignant [facility] Test 12:49:38 neoplasm of cervix of Medici ne (procedure) [code = 764730738] Future Scheduled 2021 FLU VACCINE > 6 [...] colon of Medicin e (procedure) [code = 615443697] Future Scheduled 2021 Screening for malignant [facility] Test 12:49:38 neoplasm of breast of Medici ne (procedure) [code = 751416933] Future Scheduled 2021 TETANUS SHOT (ADULT) [place] [facility] Test 12:49:38 [code = TETANUS SHOT of Medi cine (ADULT)] Future Scheduled 2021 Hepatitis C screening [facility] Test 12:49:38 (procedure) [code = of Medic ine 122680475] Future Scheduled 2021 Human immunodeficiency [facility] Test 12:49:38 virus screening of Medicine (procedure) [code = 173440567] Future Scheduled 2021 Screening for malignant [facility] [employer] Test 12:49:38 neoplasm of cervix of Medici ne (procedure) [code = 471630063] Future Scheduled 2021 FLU VACCINE > 6 [...] colon of Medicin e (procedure) [code = 040571356] Future Scheduled 2021-07-17 Screening for malignant [facility] [employer] Test 10:50:40 neoplasm of breast of Medici ne (procedure) [code = 242640117] Future Scheduled 2021-07-17 TETANUS SHOT (ADULT) [facility] Test 10:50:40 [code = TETANUS SHOT of Medi cine (ADULT)] Future Scheduled 2021-07-17 Hepatitis C screening [facility] Test 10:50:40 (procedure) [code = of Medic ine 954308636] Future Scheduled 2021[facility]07-17 [facility] 10:50:[facility] virus screening of Medicine (procedure) [code = 412468657] Future Scheduled 2021-07-17 Screening for malignant [facility] Test 10:50:40 neoplasm of cervix of Medici ne (procedure) [code = 311915513] Future Scheduled 2021-07-17 FLU VACCINE > 6 [...] dicine Future Scheduled [facility]AM[facility] ANNUAL [facility]NU[facility]] of Medic ine Future Scheduled TETANUS SHOT (ADULT) [place] [facility] Test [code = TETANUS SHOT of Medi cine (ADULT)] Future Scheduled HEPATITIS C SCREENING [facility] [code = HEPATITIS C of Medic ine SCREENING] Future Scheduled HIV SCREENING [code = [facility] HIV SCREENING] of Medicine Future Scheduled CERVICAL CANCER [facility] C ollege Test SCREENING 3 YEAR FOLLOW of M edicine UP [code = CERVICAL CANCER SCREENING 3 YEAR FOLLOW UP] Future Scheduled FLU VACCINE > 6 MONTHS [facility] Test [code = FLU VACCINE > 6 of M edicine MONTHS] Encounters Start End Encounter Admission Attending Care Care Encounter Source Date/Time Date/Time Type Type Clinicians Facility Department ID 2022-05-28 Outpatient Lopez, STLMLC ST[facility] [id number] Common 11:13:01 Alka [facility] 2022-04-27 Outpatient Lopez, STLMLC STLC [id number] Common 10:41:01 Alka [facility] 2022-01-26 Outpatient Lopez, STLMLC STLC [id number] Common 15:07:00 Alka [facility] 2022-01-04 Outpatient Lopez, STLMLC STLC [id number] Common 15:09:02 Alka [facility] 2021-12-08 Outpatient Lopez, STLMLC STLC [id number] Common 09:05:02 Alka [facility] 2021-12-02 Outpatient Lopez, STLMLC STLC [id number] Common 14:36:55 Alka [facility] 2021-12-02 Outpatient Lopez, STLMLC STLC [id number] Common 14:07:52 Alka [address] [facility] 2021-12-02 Outpatient Lopez, STLMLC STLC [id number] Common 14:03:52 Alka 5[address] [facility] 2021-12-02 Outpatient Lopez, STLMLC STLC [id number] Common 13:55:47 Alka [address] [facility] 2021-12-02 Outpatient Lopez, STLMLC STLC [id number] Common 13:53:17 Alka 420[address] [facility] 2021-12-02 Outpatient Lopez, STLMLC STLC [id number] Common 13:11:18 Alka 74241 [facility] 2021-12-02 Outpatient Lopez, STLMLC STLC [id number] Common 12:40:47 Alka 530[address] [facility] 2021-12-02 Outpatient Lopez, STLMLC STLMLC [id number] Common 12:36:13 Alka 50[address] [facility] 2021-12-02 Outpatient Lopez, STLMLC STLMLC [id number] Common 12:10:36 Alka 270[address] [facility] 2021-12-02 Outpatient Lopez, STLMLC STLC [id number] Common 11:38:47 Alka 313[address] [facility] 2021-12-02 Outpatient Lopez, STLMLC STLC [id number] Common 11:21:02 Alka [facility] 2021-08-16 Inpatient MATTAR, SLE Surgery [id number] [facility] 06:30:09 SAMER 2022-06-07 2022-06-07 Outpatient EL [facility] [id number] [facility] 00:00:00 00:00:00 2022-05-20 2022-05-20 Outpatient EL [facility] [id number] [facility] 10:22:21 10:22:21 2022-05-12 2022-05-12 ambulatory STLMLC STLC [id number] Common 00:00:00 00:00:00 [facility] 2022-04-26 2022-04-26 Office MAKAYLA Beltrán [id number] [facility] 10:40:00 13:41:38 Visit Faisalaz Enma [id number] Co llege [id number] of [id number] [facility] sang 504 e 2022-04-19 2022-04-19 Outpatient EL ALVES, SLEH SLEH [id number] [facility] 14:33:19 23:59:00 HALLIE 2022-04-13 2022-04-13 ambulatory STLMLC STLC [id number] Common 00:00:00 00:00:00 [facility] 2022-04-13 2022-04-13 ambulatory STLMLC STLMLC [id number] Common 00:00:00 00:00:00 [facility] 2022-04-07 2022-04-07 Outpatient EL SLEH [facility] [id number] [facility] 06:37:57 06:37:57 2022-04-07 2022-04-07 ambulatory STLMLC STLMLC [id number] Common 00:00:00 00:00:00 [facility] 2022-04-06 2022-04-06 ambulatory STLMLC STLMLC [id number] Common 00:00:00 00:00:00 [facility] 2022-03-19 2022-03-25 [id number] [facility] 00:14:00 12:12:00 [facility] 2022-03-11 2022-03-11 Outpatient EL ALVES, SLEH SLEH [id number] SLEH 00:00:00 00:00:00 [facility] 2022-03-08 2022-03-08 Outpatient EL SLEH SLEH [id number] SLEH 06:59:19 06:59:19 2022-02-26 2022-02-26 Outpatient EL ALVES, SLEH SLEH [id number] SLEH 12:02:22 23:59:00 [facility] 2022-02-26 2022-02-26 Outpatient EL SLEH SLEH [id number] SLEH 08:03:32 08:03:32 2022-02-26 2022-02-26 Outpatient EL ALVES, SLEH SLEH [id number] SLEH 00:00:00 00:00:00 [facility] 2022-02-26 2022-02-26 ambulatory STLMLC STLMLC [id number] Common 00:00:00 00:00:00 [facility] 2022-02-17 2022-02-17 Outpatient EL SLEH SLEH [id number] SLEH 07:49:49 07:49:49 2022-02-16 2022-02-16 Outpatient EL SHANDAVIDY, SLEH SLEH [id number] SLEH 00:00:00 23:59:00 FAIS[facility] 2022-02-16 2022-02-16 Outpatient ANDREI BELTRÁN SLE SLE [id number] SLE 00:00:00 00:00:00 TANNAZ 2021-12-28 2021-12-28 Office [facility]RAHMAN [facility] [id number] [facility] 14:16:03 15:50:38 Visit ASH Enma 350.1.13.21 Co llege 0.2.7.2.686 of [id number] [facility] sang 504 e 2021-12-09 2021-12-09 ambulatory STLMLC STLMLC [id number] Common 00:00:00 00:00:00 [facility] 2021-11-12 2021-11-12 Outpatient SAMUEL HOOKS MED [id number] BL 11:20:00 23:59:00 DAPHNEY 2021-11-05 2021-11-05 Outpatient BRODY TAMEZ [facility] [id number] [place] [address] 13:26:47 13:40:13 ALYSSA [facility] 2021-09-23 2021-09-23 Outpatient JORGE, [facility] [id number] [place] 00:00:00 00:00:00 MAVIS [address] 2021-09-23 2021-09-23 Outpatient JORGE, [facility] [id number] [place] 00:00:00 00:00:00 MAVIS [address] 2021-09-14 2021-09-14 ambulatory STLMLC STLMLC [id number] Common 00:00:00 00:00:00 [facility] 2021-09-09 2021-09-09 ambulatory STLMLC STLMLC [id number] Common 00:00:00 00:00:00 [facility] 2021-09-02 2021-09-02 Outpatient STLMLC STLMLC [id number] Common 00:00:00 00:00:00 [facility] 2021-09-01 2021-09-01 Outpatient STLMLC STLMLC [id number] Common 00:00:00 00:00:00 [facility] 2021-08-28 2021-08-28 Outpatient STLMLC STLMLC [id number] Common 00:00:00 00:00:00 [facility] 2021-08-20 2021-08-20 Outpatient STLMLC STLMLC [id number] Common 00:00:00 00:00:00 [facility] 2021-08-17 2021-08-17 Office BRODY TAMEZ 1.2.840.[id number] [place] [address] 14:47:06 15:14:31 Visit SAMER AMBULATOR 350.1.13.21 College Y 0.2.7.2.686 of [id number] Medi sang 805 e 2021-08-10 2021-08-10 Outpatient STLMLC STLMLC [id number] Common 00:00:00 00:00:00 [facility] 2021-08-10 2021-08-10 Outpatient STLMLC STLMLC [id number] Common 00:00:00 00:00:00 [facility] 2021-08-03 2021-08-03 Outpatient EL SLE SLE [id number] SLE 00:00:00 00:00:00 2021-07-31 2021-07-31 Outpatient STLMLC STLMLC [id number] Common 00:00:00 00:00:00 [facility] 2021 2021 Outpatient [facility] [id number] [address] [place] [address] 00:00:00 23:59:00 Wyatt 2021 2021 Office BRODY Tamez 1.2.840.114 [id number] [facility] 12:34:26 13:04:26 Visit Samer Gamil AMBULATOR 350.1.13.21 College Y 0.2.7.2.686 of [id number] Medi sang 805 e 2021 2021 Outpatient SLEH SLEH [id number] SLEH 00:00:00 00:00:00 2021 2021 Outpatient EL SLEH SLEH [id number] SLEH 00:00:00 00:00:00 2021 2021 Outpatient SLE SLE [id number] SLE 00:00:00 00:00:00 2021-07-17 2021-07-17 Office CARL Cao 1.2.840.114 [id number] [facility] 11:00:00 12:00:00 Visit Jolene AMBULATOR 350.1.13.21 College Y 0.2.7.2.686 [id number] [facility] sang 810 e 2021-05-01 2021-05-01 Outpatient STLMLC STLMLC [id number] Common 00:00:00 00:00:00 [facility] 2021-04-13 2021-04-13 Outpatient STLMLC STLMLC [id number] Common 00:00:00 00:00:00 [facility] 2021-03-27 2021-03-27 Outpatient STLMLC STLMLC [id number] Common 00:00:00 00:00:00 [facility] 2021-03-04 2021-03-04 Outpatient KILEY [facility] [id number] [facility] 09:27:48 09:43:02 JOLENE [facility] 2021-02-16 2021-02-16 Outpatient XUAN [facility] [id number] [facility] 09:30:25 09:54:09 JOLENE [employer] 2021-02-04 2021-02-04 Outpatient XUAN [facility] [id number] [facility] 14:40:19 14:57:28 JOLENE [employer] 2021-01-27 2021-01-27 Outpatient STLMLC STLMLC [id number] Common 00:00:00 00:00:00 [facility] 2021-01-27 2021-01-27 Outpatient STLMLC STLMLC [id number] Common 00:00:00 00:00:00 [facility] 2021-01-24 2021-01-24 Outpatient STLMLC STLMLC [id number] Common 00:00:00 00:00:00 [facility] 2021-01-09 2021-01-09 Outpatient STLMLC STLMLC [id number] Common 00:00:00 00:00:00 [facility] 2021-01-07 2021-01-07 Outpatient BRODY CAO [facility] [id number] [facility] 09:28:50 09:55:15 JOLENE [employer] 2020-12-10 2020-12-10 Outpatient KILEY [facility] [id number] [facility] 14:28:59 14:55:01 JOLENE [employer] 2020-11-13 2020-11-13 Outpatient STLMLC STLMLC [id number] Common 00:00:00 00:00:00 [facility] 2020-10-22 2020-10-22 Outpatient STLMLC STLMLC [id number] Common 00:00:00 00:00:00 [facility] 2020-10-22 2020-10-22 Outpatient STLMLC STLMLC [id number] Common 00:00:00 00:00:00 [facility] 2020-10-13 2020-10-13 Outpatient STLMLC STLMLC [id number] Common 00:00:00 00:00:00 [facility] 2020-10-13 2020-10-13 Outpatient STLMLC STLMLC [id number] Common 00:00:00 00:00:00 [facility] 2020-10-09 2020-10-09 Office BRODY Tamez 1.2.840.114 [id number] 08:04:19 09:04:19 Visit Samer Gamil AMBULATOR 350.1.13.21 Y 0.2.7.2.686 [id number] 2020-10-09 2020-10-09 Office BRODY Tamez 1.2.840.114 [id number] [facility] 08:04:19 09:04:19 Visit Samer Gamil AMBULATOR 350.1.13.21 College Y 0.2.7.2.686 of [id number] Medi sang 800 e 2020-10-08 2020-10-08 Outpatient STLMLC STLMLC [id number] Common 00:00:00 00:00:00 [facility] 2020-08-12 2020-08-12 Outpatient STLMLC STLMLC [id number] Common 00:00:00 00:00:00 [facility] 2020-08-08 2020-08-08 Outpatient STLMLC STLMLC [id number] Common 00:00:00 00:00:00 [facility] 2020-07-15 2020-07-15 [facility] [id number] Common 08:30:00 08:30:[address] [facility] 2020-07-10 2020-07-10 [facility] [id number] Common 08:52:00 08:52:[address] [facility] 2020-06-24 2020-06-24 [facility] [id number] Common 15:30:00 15:30:[address] [facility] Results Test Description Test Time Test Comments Results Result [facility] e Comments MR, BRAIN, WITH 2022-04-19 Thin slice MRI 19:17:00 brain for [employer] planning per [facility] Unlisted CENTERName: BOREL, Reason for Exam OMERO GANDHI : - Click Yes and 1970 Sex: Enter Reason F Below->Yes Unlisted Reason FI for Exam->mets NAL REPORT PATIENT from rectal ID: [id number] MR, cancer BRAIN, WITH \\T\\ WITHOUT CONTRAST INDICATION: Unlisted Reason for Exammets from rectal cancer Technique: MRI of the brain utilizing axial T1, T2, FLAIR, GRE, DWI, sagittal T1; and postgadolinium axial, sagittal, and coronal T1-weighted images. COMPARISON: None FINDINGS:9 mm enhancing lesion adjacent to the body of the left lateral ventricle. Remainder the brain parenchyma is within normal limits. Midline structures are normally developed. No restricted diffusion to suggest recent ischemic insult. No abnormal susceptibility. Scattered T2/FLAIR hyperintense foci within the periventricular and subcortical white matter are nonspecific, however, statistically represent chronic microvascular ischemic changes. No hydrocephalus. Orbits are within normal limits. No obstructive paranasal sinus disease. Additional findings: None. IMPRESSION: 9 mm enhancing lesion within the left centrum semiovale adjacent to the body of left lateral ventricle, presumed to represent a metastatic lesion. Signed: Becky Ojeda MDReport Verified Date/Time: 04/19/2022 19:17:50 (CELLAVISION MANUAL DIFF) 2022-03-25 07:32:12 Test Item [...] CONCENTRATION (CELLAVISION)(BEAKER) (test code = Decreased 3438) Acid Plant Helper ID - Anastasia Montoya comments: Slide comments:CBC W/PLT COUNT & AUTO [id number] 07:32:03 Test Item Value Reference Range Interpretation [...] (BEAKER) (test code = 413) BASIC METABOLIC [id number] 07:08:43 Test Item Value Reference Range Interpretation [...] S NOT APPLICABLE FOR DIALYSIS PATIEN TS. Acid Plant Helper ID - [id number] 07:04:29 Test Item Value Reference Range Interpretation Comments MAGNESIUM (BEAKER) (test code = 1.6 mg/dL 1.6-2.6 627) Acid Plant Helper ID - [id number] 07:04:29 Test Item Value Reference Range Interpretation Comments PHOSPHORUS (BEAKER) (test code = 3.4 mg/dL 2.3-4.7 604) Acid Plant Helper ID - BSPOCT-GLUCOSE [id number] 06:40:10 Test Item Value Reference Range Interpretation Comments POC-GLUCOSE METER 78 mg/dL 70-110 : TESTED A T [facility] 6720 (BEAKER) (test code = [facility], 153) 01535: Acid Plant Helper/Techni bryan ID = [id number] for JOESPH RAMIREZ POCT-GLUCOSE [id number] 18:56:48 Test Item Value Reference Range Interpretation Comments POC-GLUCOSE METER 122 mg/dL 70-110 H : TESTED A T [facility] 6720 (BEAKER) (test code = [facility], 153) 49951: Acid Plant Helper/Techni bryan ID = [id number] for CHELSY SARABIA CBC W/PLT COUNT & AUTO [id number] 14:23:23 Test Item Value Reference Range Interpretation [...] PERCENT (BEAKER) (test code = 2801) POCT-GLUCOSE [id number] 06:52:44 Test Item Value Reference Range Interpretation Comments POC-GLUCOSE METER 126 mg/dL 70-110 H : TESTED A T [facility] 6720 (BEAKER) (test code = [place], 153) 66383: Acid Plant Helper/Techni bryan ID = [id number] for GR AHAM, MANAS BASIC METABOLIC [id number] 05:25:09 Test Item Value Reference Range Interpretation [...] S NOT APPLICABLE FOR DIALYSIS PATIEN TS. Acid Plant Helper ID - DENISHA [id number] 05:14:14 Test Item Value Reference Range Interpretation Comments PHOSPHORUS (BEAKER) (test code = 2.4 mg/dL 2.3-4.7 604) Acid Plant Helper ID - DENISHA [id number] 05:14:13 Test Item Value Reference Range Interpretation Comments MAGNESIUM (BEAKER) (test code = 1.6 mg/dL 1.6-2.6 627) Acid Plant Helper ID - DENISHA GPOCT-GLUCOSE [id number] 19:15:29 Test Item Value Reference Range Interpretation Comments POC-GLUCOSE METER 143 mg/dL 70-110 H : TESTED A T [facility] 6720 (BEAKER) (test code = [facility], 153) 50705: Acid Plant Helper/Techni bryan ID = [id number] for DA VIS, KEYAIRA HEMOGLOBIN AND [id number] 17:03:28 Test Item Value Reference Range Interpretation Comments HEMOGLOBIN (BEAKER) (test code = 5.7 GM/DL 11.2-15.7 LL 410) HEMATOCRIT (BEAKER) (test code = 17.5 % 34.1-44.9 L 411) Acid Plant Helper ID - [id number] ID - [id number], [id number] 15:14:58 Test Item Value Reference Range Interpretation Comments CALCIUM IONIZED (BEAKER) (test 1.03 mmol/L 1.12-1.27 L code = 698) PH, BLOOD (BEAKER) (test code = 7.49 1810) BASIC METABOLIC [id number] 12:01:58 Test Item Value Reference Range Interpretation [...] S NOT APPLICABLE FOR DIALYSIS PATIEN TS. Acid Plant Helper ID - [id number] 09:33:29 Test Item Value Reference Range Interpretation Comments MAGNESIUM (BEAKER) 2.4 mg/dL 1.6-2.6 Specimen slightly (test code = 627) hemolyzed Acid Plant Helper ID - [id number] 09:33:29 Test Item Value Reference Range Interpretation Comments PHOSPHORUS (BEAKER) 4.3 mg/dL 2.3-4.7 Specimen slightly (test code = 604) hemolyzed Acid Plant Helper ID - DBPOCT-GLUCOSE [id number] 07:46:36 Test Item Value Reference Range Interpretation Comments POC-GLUCOSE METER 165 mg/dL 70-110 H : TESTED A T [facility] 6720 (BEAKER) (test [facility] = [facility], 1538) 34720: Acid Plant Helper/Techni bryan ID = [id number] for GR AHAM, MANAS POCT-GLUCOSE [id number] 00:17:48 Test Item Value Reference Range Interpretation Comments POC-GLUCOSE METER 141 mg/dL 70-110 H : TESTED A T [facility] 6720 (BEAKER) (test code = [facility] Gabrielle [facility], 1538) 78890: Acid Plant Helper/Techni bryan ID = [id number] for GR AHAM, MANAS POCT-GLUCOSE [id number] 19:18:48 Test Item Value Reference Range Interpretation Comments POC-GLUCOSE METER 108 mg/dL 70-110 : TESTED A T [facility] 6720 (SACHINAKER) (test code = [facility] Gabrielle [facility], 1538) 36784: Acid Plant Helper/Techni bryan ID = [id number] for Lashon Montague RAD, CHEST, 1 VIEW, NON [id number] 16:45:00Reason for exam:->post picc line insertionShould this be performed at the bedside?->Yes [facility] 1970 Sex: FFINAL REPORT Chest, one view History: Status post PICC line insertion Comparison: 11/02/2021 Findings:Clear lungs. Normal size heart. No pleural effusion or pneumothorax. A right PICCline terminates in the superior vena cava. A left-sided Port-A-Cath is also noted, which terminates near the atrial caval junction. Signed: Joseph, Fran MDReport Verified Date/Time: 03/22/2022 16:45: 25 POCT- GLUCOSE [id number] 12:34:38 Test Item Value Reference Range Interpretation Comments POC-GLUCOSE METER 182 mg/dL 70-110 H : TESTED A T [facility] 6720 (BEAKER) (test code = [facility], 1538) 60048: Acid Plant Helper/Techni bryan ID = [id number] for Lashon Montague POCT-GLUCOSE [id number] 06:27:11 Test Item Value Reference Range Interpretation Comments POC-GLUCOSE METER 125 mg/dL 70-110 H : TESTED A T [facility] 6720 (BEAKER) (test code = [facility], 1538) 18769: Acid Plant Helper/Techni bryan ID = [id number] for Ruby Ha BASIC METABOLIC [id number] 05:55:46 Test Item Value Reference Range Interpretation [...] S NOT APPLICABLE FOR DIALYSIS PATIEN TS. Acid Plant Helper ID - EDSON [id number] 05:54:39 Test Item Value Reference Range Interpretation Comments PHOSPHORUS (BEAKER) 2.5 mg/dL 2.3-4.7 Specimen slightly (test code = 604) hemolyzed Acid Plant Helper ID - EDSON [id number] 05:54:38 Test Item Value Reference Range Interpretation Comments MAGNESIUM (BEAKER) 1.8 mg/dL 1.6-2.6 Specimen slightly (test code = 627) hemolyzed Acid Plant Helper ID - EDSON WCBC (HEMOGRAM ONLY)2022-03-22 05:34:07 [...] 0-0 H (test code = 413) POCT-GLUCOSE [id number] 00:23:53 Test Item Value Reference Range Interpretation Comments POC-GLUCOSE METER 110 mg/dL 70-110 : TESTED A T [facility] 6720 (BEAKER) (test code = [facility] [place], 1538) 56753: Acid Plant Helper/Techni bryan ID = [id number] for Ruby Ha LACTIC ACID, [id number] 21:33:54 Test Item Value Reference Range Interpretation Comments LACTATE BLOOD VENOUS 1.39 mmol/L 0.50-2.20 Specime n slightly (2) (OSIEL) (test hemolyzed code = 2872) Acid Plant Helper ID - DBPOCT-GLUCOSE [id number] 18:03:59 Test Item Value Reference Range Interpretation Comments POC-GLUCOSE METER 113 mg/dL 70-110 H : TESTED A T [facility] 6720 (OSIEL) (test code = [facility] [place], 1538) 31144: Acid Plant Helper/Techni bryan ID = [id number] for Eileen Unger CT, [id number] 16:31:00Please give oral contrastUnlisted Reason for Exam - Click Yes and Enter Reason Below->NoIs this for enterography?->NoWill this procedure require oral contrast?->Yes [facility] 1970 Sex: FFINAL REPORT TECHNIQUE: CT of the abdomen and pelvis WITH intravenous contrast andWITHOUT oral contrast. Dose modulation, iterative reconstruction, and/or weight-based adjustment of the mA/kV was utilized to reduce the radiation dose to as low as reasonably achievable. INDICATION: Abdominal distension. COMPARISON: Outside facility CT from 12/16/2021. FINDINGS: LOWER THORAX: Trace bilateral pleural effusions with mild bibasilar atelectasis. The partially visualized central venous catheter has its tip in the high right atrium. HEPATOBILIARY: Prior cholecystectomy. There are at least 9 masses in the liver with examples as follow:*A mass in segment VIII on axial image 13 measures 3.7 x 5.8 cm, previously 5.5 x 7.8 cm.*A mass in segment IV measures 3.1 x 2.2 cm on axial image 19, previously 2 x 2.3 cm.*A mass in segment measures 3 x 2.6 cm on axial image 21, previously 2.7 x 2.4 cm.*A mass in segment VII on axial image 15 measures 1.3 cm, previously 0.6 cm. SPLEEN: No splenomegaly. The spleen measures 12.9 cm in length.PANCREAS: No focal masses or ductal dilatation. ADRENALS: Noadrenal nodules.KIDNEYS/URETERS: No hydronephrosis, stones, or masses.PELVIC ORGANS/BLADDER: Bladderis decompressed by Andrade catheter. PERITONEUM/RETROPERITONEUM: Small volume free fluid adjacent to the pancreatic tail. Small, fat filled left indirect inguinal hernia. LYMPH NODES: No lymphadenopathy.VESSELS: The right femoral venous catheter enters the right common femoral vein with calcifications in the right external iliac portion. Mild atherosclerosis of the infrarenal abdominal aorta. GI TRACT:There are prominent loops of large and small bowel which are filled with liquid. There is gradual decompression to the distal small bowel with small bowel wall thickening. No definite focal transition is visualized. Prior sleeve gastrectomy. Irregular rectal wall thickening. BONES AND SOFT TISSUES: Mild degenerative disc changes of visualized spine.. Diffuse anasarca with likely sites of prior medication injection the subcutaneous tissues IMPRESSION: 1.There is more liquid than usually expected in the large and small bowel with thickening of the distal ileum and no focal transition. This is most concerning for enteritis. If there is continued clinical concern for a small bowel obstruction, consider a follow-up CT of the abdomen and pelvis with oral and intravenous contrast. 2.There has been mixedresponse to treatment with decrease in size of the largest mass in segment VIII but increase in sizeof a few other metastatic liver masses. 3.The irregular rectal wall thickening is consistent with the known rectal cancer. 4.The right femoral venous catheter has adjacent calcification and some questionable hypodensity which is concerning for chronic deep venous thrombus. Further evaluation with a deep venous thrombosis ultrasound is recommended. 5.There is a small volume of free fluid adjacent to the pancreatic tail which may be incidental. However, further evaluation with serum lipase is recommended to exclude acute pancreatitis. The findings were discussed with the patient's nurse, Augustus, on 03/21/2022 at 4:28 PM. Signed: Augustus Lopez MDReport Verified Date/Time: 03/21/2022 16:31:41 Reading Location: [facility] C013Y CT Body Reading Room POCT-GLUCOSE [id number] 12:11:10 Test Item Value Reference Range Interpretation Comments POC-GLUCOSE METER 130 mg/dL 70-110 H : TESTED A T [facility] 6720 (BEAKER) (test code = [facility], 1538) 79358: Acid Plant Helper/Techni bryan ID = [id number] for Eileen Unger POCT-GLUCOSE [id number] 06:32:18 Test Item Value Reference Range Interpretation Comments POC-GLUCOSE METER 123 mg/dL 70-110 H : TESTED A T [facility] 6720 (BEAKER) (test code = [facility], 1538) 02294: Acid Plant Helper/Techni bryan ID = [id number] for Ruby Ha CARCINOEMBRYONIC ANTIGEN (CEA)2022-03-21 06:19:51 Test Item Value Reference Range Interpretation Comments CARCINOEMBRYONIC ANTIGEN (BEAKER) 2.5 ng/mL 0.0-5.0 (test code = 685) Acid Plant Helper ID - DBBASIC METABOLIC [id number] 06:03:11 Test Item Value Reference Range Interpretation [...] S NOT APPLICABLE FOR DIALYSIS PATIEN TS. Acid Plant Helper ID - [id number] 06:02:43 Test Item Value Reference Range Interpretation Comments PHOSPHORUS (BEAKER) (test code = 2.9 mg/dL 2.3-4.7 604) Acid Plant Helper ID - [id number] 06:02:42 Test Item Value Reference Range Interpretation Comments MAGNESIUM (BEAKER) (test code = 1.4 mg/dL 1.6-2.6 L 627) Acid Plant Helper ID - DBCBC (HEMOGRAM ONLY)2022-03-21 05:47:34 Test [...] 0-0 (BEAKER) (test code = 413) POCT-GLUCOSE [id number] 00:34:42 Test Item Value Reference Range Interpretation Comments POC-GLUCOSE METER 104 mg/dL 70-110 : TESTED A T [facility] 6720 (BEAKER) (test code = [place], 1538) 17253: Acid Plant Helper/Techni bryan ID = [id number] for Ruby Ha POCT-GLUCOSE [id number] 17:52:27 Test Item Value Reference Range Interpretation Comments POC-GLUCOSE METER 114 mg/dL 70-110 H : [facility] ([facility] (test code = [facility] Gabrielle [facility], 1538) 27930: Acid Plant Helper/Techni bryan ID = [id number] for Eileen Unger POCT-GLUCOSE [id number] 12:31:44 Test Item Value Reference Range Interpretation Comments POC-GLUCOSE METER 95 mg/dL 70-110 : Verify w / Lab Draw: (BEAKER) (test code = TESTED AT [facility] 6720 1538) [facility], [address]: Acid Plant Helper/Techni bryan ID = [id number] for Eileen Olson POCT-GLUCOSE [id number] 07:51:05 Test Item Value Reference Range Interpretation Comments POC-GLUCOSE METER 96 mg/dL 70-110 : [facility] (BEAKER) (test code = [facility], 1538) 93677: Acid Plant Helper/Techni bryan ID = [id number] for Eileen Olson BASIC METABOLIC [id number] 07:27:52 Test Item Value Reference Range Interpretation [...] S NOT APPLICABLE FOR DIALYSIS PATIEN TS. Acid Plant Helper ID - [id number] 07:26:36 Test Item Value Reference Range Interpretation Comments MAGNESIUM (BEAKER) (test code = 1.7 mg/dL 1.6-2.6 627) Acid Plant Helper ID - [id number] 07:26:36 Test Item Value Reference Range Interpretation Comments PHOSPHORUS (BEAKER) (test code = 3.0 mg/dL 2.3-4.7 604) Acid Plant Helper ID - BSCBC (HEMOGRAM ONLY)2022-03-20 06:52:08 Test [...] 0-0 (BEAKER) (test code = 413) CALCIUM, [id number] 06:51:10 Test Item Value Reference Range Interpretation Comments CALCIUM IONIZED (BEAKER) (test 1.07 mmol/L 1.12-1.27 L code = 698) PH, BLOOD (BEAKER) (test code = 7.47 1810) POCT-GLUCOSE [id number] 22:51:38 Test Item Value Reference Range Interpretation Comments POC-GLUCOSE METER 84 mg/dL 70-110 : TESTED A T [facility] 6720 (OSIEL) (test code = [place], 1538) 49835: Acid Plant Helper/Techni bryan ID = [id number] for MANAS SIMMS AM SARS-COV2/RT-PCR ([facility])2022-03-19 21:16:11 Test Item Value Reference Range Interpretation Comments SARS-COV2/RT-PCR (test code = Negative Negative 7445040) Negative result for this test determines that [...] under Section 564(g) of the Act.Testing was performed using [employer] [facility] SARS-CoV-2 assay.Fact Sheet for Healthcare Providers:https://www.[employer].parks/kaylee/RT SARS-CoV-2 HCP Fact Sheet 51- 207328.pdfFact Sheet for Healthcare Patients:https://www.[employer].Eloqua/kaylee/RT SARS-CoV-2 Patient Fact Sheet EN 51-900807W6.pdfLACTIC ACID, [id number] 15:13:37 Test Item Value Reference Range Interpretation Comments LACTATE BLOOD VENOUS 0.98 mmol/L 0.50-2.20 Specime n slightly (2) (BEAKER) (test hemolyzed code = 2872) Acid Plant Helper ID - BS(CELLAVISION MANUAL DIFF)2022-03-19 10:44:14 Test [...] CONCENTRATION Decreased (CELLAVISION)(BEAKER) (test code = 3438) Acid Plant Helper ID - José Luis Castillo comments: Slide comments:CBC W/PLT COUNT & AUTO [id number] 10:44:13 Test Item Value Reference Range Interpretation [...] H (BEAKER) (test code = 413) SCREEN, [id number] 09:22:00 Test Item Value Reference Range Interpretation Comments TEST URINE (BEAKER) (test Negative code = 583) [id number] 08:22:57 Test Item Value Reference Range Interpretation Comments TRIGLYCERIDES (BEAKER) (test code = 170 mg/dL 540) TRIGLYCERIDE REFERENCE RANGELow Risk <150Borderline Risk 150-199High Risk 200-499Very High Risk >=500Operator ID - ALO EPATIC FUNCTION PANEL 2022-03-19 [...] (test code = 18 U/L 6-55 347) Acid Plant Helper ID - DENISHA [id number] 05:15:06 Test Item Value Reference Range Interpretation Comments MAGNESIUM (BEAKER) (test code = 1.5 mg/dL 1.6-2.6 L 627) Acid Plant Helper ID - DENISHA [id number] 05:15:06 Test Item Value Reference Range Interpretation Comments PHOSPHORUS (BEAKER) (test code = 2.9 mg/dL 2.3-4.7 604) Acid Plant Helper ID - DENISHA GBASIC METABOLIC [id number] 05:15:05 Test Item Value Reference Range Interpretation [...] S NOT APPLICABLE FOR DIALYSIS PATIEN TS. Acid Plant Helper ID - DENISHA GHEPATITIS C [id number] 17:20:09 Test Item Value Reference Range Interpretation Comments HEPATITIS C ANTIBODY (BEAKER) Nonreactive Nonreactive (test code = 367) Acid Plant Helper ID - KERRYHEPATITIS A ANTIBODY, [id number] 17:20:09 Test Item Value Reference Range Interpretation Comments HEPATITIS A IGM ANTIBODY (BEAKER) Nonreactive Nonreactive (test code = 498) Acid Plant Helper ID - DBHEPATITIS B CORE ANTIBODY, [id number] 17:20:09 Test Item Value Reference Range Interpretation Comments HEPATITIS B CORE TOTAL ANTIBODY Nonreactive Nonreactive (BEAKER) (test code = 497) Acid Plant Helper ID - DBHEPATITIS B SURFACE [id number] 17:20:04 Test Item Value Reference Range Interpretation Comments HEPATITIS B SURFACE ANTIGEN (2) Nonreactive Nonreactive (BEAKER) (test code = 2585) Specimen is considered negative for HBsAg.HEPATITIS B SURFACE [id number] 17:20:04 Test Item Value Reference Range Interpretation Comments HEPATITIS B SURFACE ANTIBODY 408.7 mIU/mL <8.0 H (BEAKER) (test code = 647) Acid Plant Helper ID - DBTISSUE [id number] 17:14:04Surgical Pathology Report Case: [id number] Authorizing Provider: Alyssa Tamez MD Collected: 08/04/2021 08:32 AM Ordering Location: [facility] Received: 08/04/2021 10:02 AM SERVICES Pathologist: Lana Hui MD Specimen: Stomach, PARTIAL GASTRECTOMY STOMACH, PARTIAL GASTRECTOMY: - APORTION OF GASTRIC BODY WITH NO SPECIFIC PATHOLOGIC CHANGES Signing Pathologist Direct Phone Line: [phone] signed by Lana Hui MD on 08/10/2021 [...] rugal folds. No discrete lesions are identified. Therapeutic Riding Instructor sections are submitted in A1-A2.SARINA Ochoa, HT ([facility]) POCT-GLUCOSE [id number] 08:05:23 Test Item Value Reference Range Interpretation Comments POC-GLUCOSE METER 106 mg/dL 70-110 : TESTED A T [facility] 6720 (BEAKER) (test code = [facility]) [address]: Acid Plant Helper/Techni bryan ID = [id number] for NOELLE TRAN POCT-GLUCOSE [id number] 21:44:33 Test Item Value Reference Range Interpretation Comments POC-GLUCOSE METER 113 mg/dL 70-110 H : TESTED A T [facility] 6720 (BEAKER) (test code = [facility]) 14097: Acid Plant Helper/Techni bryan ID = [id number] for DA MARTELL LÓPEZA POCT-GLUCOSE [id number] 16:59:35 Test Item Value Reference Range Interpretation Comments POC-GLUCOSE METER 151 mg/dL 70-110 H : TESTED A T [facility] 6720 (BEAKER) (test code = [facility]) [address]15: Acid Plant Helper/Techni bryan ID = [id number] for An toine, Peggy POCT-GLUCOSE [id number] 13:26:55 Test Item Value Reference Range Interpretation Comments POC-GLUCOSE METER 169 mg/dL 70-110 H : TESTED A T [facility] 6720 (BEAKER) (test code = [facility], 1538) 80441: Acid Plant Helper/Techni bryan ID = [id number] for An toine, Peggy POCT-GLUCOSE [id number] 12:17:26 Test Item Value Reference Range Interpretation Comments POC-GLUCOSE METER 161 mg/dL 70-110 H : TESTED A T [facility] 6720 (BEAKER) (test code = [facility]) [address]: Acid Plant Helper/Techni bryan ID = [id number] for SUNG MARIE URINALYSIS W/ REFLEX URINE [id number] 08:05:03 Test Item Value Reference Range Interpretation [...] = 1521) SOURCE(BEAKER) (test code = 2795) Acid Plant Helper ID - [auto]Acid Plant Helper ID - techSARS-COV2/RT-PCR ([facility]) 2021 23:45:05 Test Item Value Reference Range Interpretation Comments SARS-COV2/RT-PCR (test code = Negative Negative 5449246) Negative result for this test determines that [...] under Section 564(g) of the Act.Testing was performed using the Parks SARS-CoV-2 assay.Fact Sheet for Healthcare Providers:https://www.[employer] Products.Eloqua/kaylee/RT SARS-CoV-2 HCP Fact Sheet 51- 457671.pdfFact Sheet for Healthcare Patients:https://www.Social Pulse/kaylee/RT SARS-CoV-2 Patient Fact Sheet EN 51-509920I9.rukMLFRFLCYLM6743-22-40 12:32:40 Test Item Value Reference Range Interpretation Comments CREATININE (BEAKER) 0.61 mg/dL 0.57-1.25 (test code = 358) EGFR (BEAKER) (test 104 mL/min/1.73 ESTIM ATED GFR IS code = 1092) sq m NOT ACCURATE CREATININE CLEARANCE IN PREDICTING GLOMERULAR FILTRATION RATE . ESTIMATED GFR I S NOT APPLICABLE FOR DIALYSIS PATIEN TS. Acid Plant Helper ID - TYLOR [id number] 12:32:40 Test Item Value Reference Range Interpretation Comments GLUCOSE RANDOM (BEAKER) (test code 147 mg/dL 70-105 H = 652) Acid Plant Helper ID - DOMINICOBDULIA [id number] 12:32:39 Test Item Value Reference Range Interpretation Comments BLOOD UREA NITROGEN (BEAKER) (test 11 mg/dL 7-21 code = 354) Acid Plant Helper ID - DOMINICOBDULIA [id number] 12:32:39 Test Item Value Reference Range Interpretation Comments SODIUM (BEAKER) (test code = 381) 142 meq/L 136-145 POTASSIUM (BEAKER) (test code = 4.0 meq/L 3.5-5.1 379) CHLORIDE (BEAKER) (test code = 382) 106 meq/L 98-107 CO2 (BEAKER) (test code = 355) 27 meq/L 22-29 Acid Plant Helper ID - PIAYA [id number] 12:13:22 Test Item Value Reference Range Interpretation Comments HEMOGLOBIN (BEAKER) (test code = 11.8 GM/DL 11.2-15.7 410) Acid Plant Helper ID - [id number]-COV2/RT-PCR ([facility])2020-05-12 19:10:00 Test Item Value Reference Range Interpretation Comments SARS-COV2/RT-PCR (test code = Positive Not Detected, Negative A A [id number]) SARS-COV-2 PERFORMING LAB [facility] (test code = 5577774) Results are for the detection of SARS-CoV-2 [...] for this assay is 800 copies/mL.This SARS CoV-2 test is a real-time RT-PCR test intended for the qualitative detection of nucleic acid from SARS-CoV-2 in a nasopharyngeal swab specimen collected from individuals suspected of COVID-19 by their healthcare provider.This test has not been Food and Drug Administration (FDA) cleared or approved. This is a modified version of an approvedEmergency Use Authorization (EUA) and is in the process of review by the FDA. Once authorized by theFDA, the issued EUA will be effective until the declaration that circumstances exist justifying the a uthorization of the emergency use of in vitro diagnostic tests for detection and/or diagnosis of COVID-19 is terminated under Section 564(b)(2) of the Act or the EUA is revoked under Section 564(g) of the Act.Fact Sheet for Healthcare Providers:https://www.[employer].Tipser/sites/default/files/product/documen ts/Meiz_Ujjjf_RZ_Oqrwennav_Oqmc_PKXS-VnJ-7.pdfFact Sheet for Healthcare Patients:https://www.quidel.c om/sites/default/files/product/documents/Lgnx_Vmthg_Qfhdmllx_Bnaf_YIAI-TxR-8.pdf Performing Laboratory:[facility] [place] [address]
[2022-06-18 10:13] LABS: Absolute Lymphocytes (CBC) 0.7 K/uL (0.7-4.9); Lymphocytes % 9.7 % (15.3-44.8); MCV 85.1 fL (80-100); MPV 8.1 fL (7.6-11.3); RBC Red Blood Cell Count 2.32 M/uL (3.86-4.86)
[2022-06-18 10:14] LABS: Magnesium 1.7 mg/dL (1.8-2.4)
[2022-06-18 10:15] LABS: Potassium 2.7 mmol/L (3.5-5.1)
--- NOTE | 2022-06-18 10:21 | RAD REPORT ---
EXAM DESCRIPTION: RAD - Chest Single View - 06/18/2022 10:13 am CLINICAL HISTORY: stroke Chest pain. COMPARISON: Abdomen 1 View (KUB) dated 03/17/2022; Chest Single View dated 03/14/2022; Chest Single Vie w dated 03/13/2022; Chest Single View dated 03/12/2022 FINDINGS: Portable technique limits examination quality. The lungs are grossly clear. Left port catheter has tip in the SVC near the junction of the right atr ium. The heart is normal in size. No displaced fractures. IMPRESSION: No acute intrathoracic process suspected.
[2022-06-18 10:23] LABS: Protime INR 2.3
[2022-06-18 10:24] LABS: Hematocrit 19.7 % (36.0-45.0)
[2022-06-18] MEDS ORDERED: POTASSIUM 25 MEQ EFFERV TAB ONE (10:49)
[2022-06-18] MEDS ORDERED: KCL 20 MEQ/100 mL IVPB 100 ML IV ONE (10:50)
[2022-06-18] MEDS ORDERED: CALCIUM GLUCONATE 1 GM IVPB 1 GM/50 ML BAG IV ONE (10:58)
--- NOTE | 2022-06-18 11:00 | EDPHYS ---
Physician Documentation [facility] Name: Ailin Dickson Age: 51 yrs Sex: Female : 1970 Arrival Date: 06/18/2022 Time: 09:31 Bed 6 Private MD: ED Physician Rudy Hanson HPI: 06/18 09:42 This 51 yrs old Female presents to ER via Unassigned with complaints of S/S of Possible jr11 Stroke. 09:42 The patient's problem is reported as weakness, in the right upper extremity, in the jr11 right lower extremity, aphasia . Onset: The symptoms/episode began/occurred 3 day(s) ago. Duration: This was a single incident. Context: h/o stage 4 CA. The symptoms are alleviated by nothing. The symptoms are aggravated by nothing. Associated signs and symptoms: The patient has no apparent associated signs or symptoms. Severity of symptoms: At their worst the symptoms were moderate in the emergency department the symptoms are unchanged. Pt sees Dr Sandoval . - Social history:: Smoking status: Patient/guardian denies using tobacco. ROS: 09:42 All other systems are negative. jr11 Exam: 09:42 Constitutional: appears chronically ill, cachectic Head/Face: Normocephalic, jr11 atraumatic. Eyes: Extra-ocular motions intact. Lids and lashes normal. Conjunctiva and sclera are non-icteric and not injected. Cornea within normal limits. Periorbital areas with no swelling, redness, or edema. ENT: Nares patent. No nasal discharge, no septal abnormalities noted. Oropharynx with no redness, swelling, or masses, exudates, or evidence of obstruction, uvula midline. Mucous membranes moist. Neck: Trachea midline, no thyromegaly or masses palpated, and no cervical lymphadenopathy. Supple, full range of motion without nuchal rigidity, or vertebral point tenderness. No Meningismus. Chest/axilla: Normal chest wall appearance and motion. Nontender with no deformity. No lesions are appreciated. Cardiovascular: Regular rate and rhythm with a normal S1 and S2. No gallops, murmurs, or rubs. Normal PMI, no JVD. No pulse deficits. Respiratory: Lungs have equal breath sounds bilaterally, clear to auscultation and percussion. No rales, rhonchi or wheezes noted. No increased work of breathing, no retractions or nasal flaring. Abdomen/GI: Soft, non-tender, with normal bowel sounds. No distension or tympany. No guarding or rebound. No evidence of tenderness throughout. Back: No spinal tenderness. No costovertebral tenderness. Full range of motion. MS/ Extremity: Pulses equal, no cyanosis. Neurovascular intact. Full, normal range of motion. Neuro: Awake and alert, GCS 15, oriented to person, place, time, and situation. R side weakness seem NIHSS Vital Signs: 09:30 BP 90 / 62; Pulse 92; Resp 17; Temp 97.7; Pulse Ox 100% ; Weight 58.97 kg; Height 5 ft. [facility] 5 in. (165.10 cm); Pain 2/10; 11:00 BP 92 / 62; Pulse 84; Resp 18; Pulse Ox 96% on R/A; Pain 2/10; [facility] 09:30 Body Mass Index 21.63 (58.97 kg, 165.10 cm) [facility] NIH Stroke Scale Scores: 09:35 NIHSS Score: 4 [facility] 09:42 NIHSS Score: 5 [facility] MDM: 09:39 Patient medically screened. [facility] 09:42 Differential diagnosis: CVA, TIA, metastatic disease, cerebral edema. Data reviewed: [facility] vital signs, nurses notes. ED course: Patient is a 51-year-old with metastatic stage IV adenocarcinoma, here with weakness of her right arm right leg, differential as above, likely due to metastatic disease, not a tPA candidate given that symptom onset greater than 4 hours. We will get lab work CT, discussed with Dr. Sandoval.. 09:53 ED course: CT done earlier today shows mild subtle areas of diminished density in her [facility] white matter recommending an MRI with contrast for further assessment. No acute intracranial abnormality. Will discuss findings with Dr. Sandoval once lab returns.. 10:45 ED course: Per Dr Sandoval, if unable to get GI on board, [place]. [facility] 10:50 ED course: Per Allie MADSEN, not available . [facility] 06/18 09:41 Order name: Basic Metabolic Panel; Complete Time: 10:28 [facility] 06/18 09:41 Order name: CBC with Diff; Complete Time: 10:28 [facility] 06/18 09:41 Order name: Magnesium; Complete Time: 10:28 06/18 09:41 Order name: Protime (+inr); Complete Time: 10:28 06/18 09:41 Order name: Ptt, Activated; Complete Time: 10:06/18 09:41 Order name: Stroke CXR 1 View; Complete Time: 10:28 [facility] 06/18 10:08 Order name: Glucose, Ancillary Testing; Complete Time: 10:15 EDMS 06/18 11:01 Order name: SARS RAPID; Complete Time: 14:14 eb 06/18 11:01 Order name: Type And Screen 06/18 13:20 Order name: Packed RBC Leukored [facility] 06/18 13:21 Order name: Bb Add On ss 06/18 09:41 Order name: EKG; Complete Time: 09:43 06/18 09:41 Order name: Accucheck; Complete Time: 10:06/18 09:41 Order name: Cardiac monitoring; Complete Time: 10:06/18 09:41 Order name: EKG - Nurse/Tech; Complete Time: 10:06/18 09:41 Order name: IV Saline Lock; Complete Time: 10:06/18 09:41 Order name: Labs collected and sent; Complete Time: 10:06/18 09:41 Order name: NPO; Complete Time: 10:06/18 09:41 Order name: O2 Per Protocol; Complete Time: 10:06/18 09:41 Order name: O2 Sat Monitoring; Complete Time: 10:06/18 09:41 Order name: Stroke Swallow Screen; Complete Time: 10:06/18 11:03 Order name: Consent for Blood Transfusion; Complete Time: 11:20 Administered Medications: 10:50 Drug: Calcium Gluconate 1 grams Route: IVPB; Infused Over: 60 mins; Site: Port-a-cath; [facility] 11:30 Not Given (Patient Refused): Potassium Effervescent Tablet 50 mEq PO once; dissolve in [facility] 4 ounces of water or juice 11:30 Drug: Potassium Chloride 20 mEq Route: IV; Rate: calculated rate; Site: Port-a-cath; [facility] Point of Care Testing: Blood Glucose: 09:40 Blood Glucose: 88 mg/dL; [facility] Ranges: Critical Glucose Levels:Adult <50 mg/dl or >400 mg/dl <40 mg/dl or >180 mg/dl Disposition Summary: 06/18/22 10:59 Transfer Ordered Transfer Location: [facility] jr11 Reason: Higher level of care jr11 Condition: Fair jr11 Problem: an acute exacerbation jr11 Symptoms: are unchanged jr11 Accepting Physician: Tiago Yap/ [facility](06/18/22 14:47) [facility] Diagnosis - Lower Gi Bleed jr11 - R sided weakness jr11 - Aphasia jr11 Forms: - Medication Reconciliation Form jr11 - SBAR form jr11 NIH Stroke Scale - NIH Stroke Score Date: 06/18/2022 Time: 09:35 Total Score = 4 1a. Level of Consciousness (LOC) - 0(Alert) 1b. Level of Consciousness (LOC) (Month \T\ Age) - 0(Both) 1c. LOC Commands (Open \T\ Closes Eyes/Fitter Mechanic) - 0(Both) 2. Best Gaze (Lateral Gaze Paresis) - 0(Normal) 3. Visual Field Loss - 0(No visual loss) 4. Facial Palsy - 0(Normal) 5a. Left Arm: Motor (10-second hold) - 0(No drift) 5b. Right Arm: Motor (10-second hold) - 1(Drift) 6a. Left Leg: Motor (5-second hold - always test supine) - 1(Drift) 6b. Right Leg: Motor (5-second hold - always test supine) - 1(Drift) 7. Limb Ataxia (finger/nose \T\ heel/dixon - test with eyes open) - 1(Present in one limb) 8. Sensory Loss (pinprick arms/legs/face) - 0(Normal) 9. Best Language: Aphasia (description/naming/reading) - 0(No aphasia) 10. Dysarthria (speech clarity - read or repeat words) - 0(Normal) 11. Extinction and Inattention (visual/tactile/auditory/spatial/personal) - 0(No abnormality) Initials: [facility] NIH Stroke Scale - NIH Stroke Score Date: 06/18/2022 Time: 09:42 Total Score = 5 1a. Level of Consciousness (LOC) - 0(Alert) 1b. Level of Consciousness (LOC) (Month \T\ Age) - 0(Both) 1c. LOC Commands (Open \T\ Closes Eyes/Fitter Mechanic) - 0(Both) 2. Best Gaze (Lateral Gaze Paresis) - 0(Normal) 3. Visual Field Loss - 0(No visual loss) 4. Facial Palsy - 0(Normal) 5a. Left Arm: Motor (10-second hold) - 0(No drift) 5b. Right Arm: Motor (10-second hold) - 2(Drift, some effort against gravity) 6a. Left Leg: Motor (5-second hold - always test supine) - 0(No drift) 6b. Right Leg: Motor (5-second hold - always test supine) - 2(Drift, some effort against gravity) 7. Limb Ataxia (finger/nose \T\ heel/dixon - test with eyes open) - 1(Present in one limb) 8. Sensory Loss (pinprick arms/legs/face) - 0(Normal) 9. Best Language: Aphasia (description/naming/reading) - 0(No aphasia) 10. Dysarthria (speech clarity - read or repeat words) - 0(Normal) 11. Extinction and Inattention (visual/tactile/auditory/spatial/personal) - 0(No abnormality) Initials: richard Signatures: Dispatcher [employer] EDMS Yoly Perez Jennifer, RN RN jh6 Rudy Hanson MD MD jr11 Corrections: (The following items were deleted from the chart) 09:46 09:43 CT-STROKE BRAIN W/O CONTRAST+CT.RAD.SHMUEL ordered. EDMS EDMS 11:58 10:59 [facility] jr11 14:47 11:58 Dr. Brito Monroegris/ [facility]6
--- NOTE | 2022-06-18 11:00 | ER ---
Nurse's Notes [facility] Name: Ailin Dickson Age: 51 yrs Sex: Female : 1970 Arrival Date: 06/18/2022 Time: 09:31 Bed 6 Private MD: Diagnosis: Lower Gi Bleed;R sided weakness;Aphasia Presentation: 06/18 09:30 Chief complaint: SAME DAY SURGERY RN reported that pt started having slurred speech and jh6 rt arm weakness for three days prior to coming in for iv therapy. Pt has hx of CA and comes in for iv Mag and Potassium infusions but has missed this last week. 09:30 Coronavirus screen: Vaccine status: Patient reports receiving the 2nd dose of the covid jh6 vaccine. Ebola Screen: Patient negative for fever greater than or equal to 101.5 degrees Fahrenheit, and additional compatible Ebola Virus Disease symptoms Patient denies exposure to infectious person. Patient denies travel to an Ebola-affected area in the 21 days before illness onset. An acute neurological deficit is present. The patient has been moved to a treatment area. The patients blood glucose was checked before arriving to the hospital and was found to be normal. Initial Sepsis Screen: Does the patient meet any 2 criteria? No. Patient's initial sepsis screen is negative. Does the patient have a suspected source of infection? No. Patient's initial sepsis screen is negative. Risk Assessment: Do you want to hurt yourself or someone else? Patient reports no desire to harm self or others. Onset of symptoms was June 15, 2022. 09:30 Method Of Arrival: Stretcher [facility] 09:30 Acuity: MADDI 2 [facility] Triage Assessment: 10:19 The onset of the patients symptoms was June 15, 2022 at 08:00. General: Appears jh comfortable, Behavior is cooperative, appropriate for age. Pain: Complains of pain in diaphragm Pain currently is 2 out of 10 on a pain scale. Neuro: Level of Consciousness is awake, alert, obeys commands, Oriented to person, place, time, situation, [employer] are weak on right Weakness in right hand(s) arm(s) leg(s) Speech is slurred, Reports weakness in right arm. - Social history:: Smoking status: Patient/guardian denies using tobacco. Screenin:30 Abuse screen: Denies threats or abuse. Denies injuries from another. 6 09:30 Nutritional screening: No deficits noted. Tuberculosis screening: No symptoms or risk jh6 factors identified. Fall Risk Secondary diagnosis (15 points) impaired mobility, Assessment: 09:35 VAN Scoring: Arm Drift: Minor drift Patient has been NPO before screening. The patient jh6 is alert, and able to follow commands. The patient does not exhibit slurred or garbled speech. The patient is exhibiting difficulty speaking. Provider notified of the indication for Speech Therapy consult. The patient does not exhibit difficulty understanding words. The patient is able to swallow own secretions with no drooling or need for suction. Patient tolerated one teaspoon of water. No drooling, immediate coughing, gurgling, or clearing of the throat was noted. The patient passed the bedside swallow screening. Oral medications may be given as ordered. Contact Physician for further diet orders. TNKase (Tenecteplase) Screening: Contraindications:. 11:00 Reassessment: No changes from previously documented assessment. Patient and/or family jh6 updated on plan of care and expected duration. Pain level reassessed. Patient is alert, oriented x 3, equal unlabored respirations, skin warm/dry/pink. family at bedside. 11:42 The patient tolerated 90mL of water. No drooling, immediate coughing, gurgling, or jh6 clearing of the throat was noted. 13:19 Reassessment: Patient and/or family updated on plan of care and expected duration. Pain jh6 level reassessed. Patient is alert, oriented x 3, equal unlabored respirations, skin warm/dry/pink. attempted to call report and was advised that pts nurse and charge nurse were dealing with a rapid response and to call back in 30 min. 14:45 Reassessment: spoke with Jania KENDRICK and give report. Pt has had no reaction to blood jh6 transfusion and is tolerating well. Vital Signs: 09:30 BP 90 / 62; Pulse 92; Resp 17; Temp 97.7; Pulse Ox 100% ; Weight 58.97 kg; Height 5 ft. jh6 5 in. (165.10 cm); Pain 2/10; 11:00 BP 92 / 62; Pulse 84; Resp 18; Pulse Ox 96% on R/A; Pain 2/10; jh6 09:30 Body Mass Index 21.63 (58.97 kg, 165.10 cm) [facility] NIH Stroke Scale Scores: 09:35 NIHSS Score: 4 6 09:42 NIHSS Score: 5 [facility] ED Course: 09:30 Arm band placed on left wrist. Patient placed in the treatment room, on a stretcher, on [facility] chef de froid, on pulse oximetry. 09:30 Bed in low position. Call light in reach. Side rails up X2. Adult w/ patient. 6 09:31 Patient arrived in ED. ss 09:39 Rudy Hanson MD is Attending Physician. jr11 09:45 Inserted Accessed Port-a-Cath. jh6 10:08 Grace Murillo, MIREILLE is Primary Nurse. 6 10:15 Stroke CXR 1 View In Process Unspecified. EDMS 10:19 Triage completed. 6 10:[address] Sandoval called and connected with Dr. Hanson for patient consultation.eb 10:58 initiated a transfer with Brigida from the [facility] Transfer [place]. eb 11:31 T\T\S collected, blood band applied to patient. [facility] 11:[address] Brito, the hospitalist hollow tile partition erector for [facility] with Dr. Margie clark for patient transfer center. 11:51 administrative approval given by Eulalia Thomas Rn/ patient has been accepted to [facility] rm 1051/ Dr. Tiago Brito has accepted the patient in transfer/ report to be called to [phone]. Administered Medications: 10:50 Drug: Calcium Gluconate 1 grams Route: IVPB; Infused Over: 60 mins; Site: Port-a-cath; [facility] 11:30 Not Given (Patient Refused): Potassium Effervescent Tablet 50 mEq PO once; dissolve in [facility] 4 ounces of water or juice 11:30 Drug: Potassium Chloride 20 mEq Route: IV; Rate: calculated rate; Site: Port-a-cath; [facility] Medication: 11:42 VIS not applicable for this client. [facility] Point of Care Testing: Blood Glucose: 09:40 Blood Glucose: 88 mg/dL; [facility] Ranges: Outcome: 10:59 ER care complete, transfer ordered by . [facility] 14:46 Transferred by ground EMS to [facility]. [facility] 14:46 Condition: stable 14:46 Instructed on the need for transfer. 14:47 Patient left the ED. [facility] NIH Stroke Scale - NIH Stroke Score Date: 06/18/2022 Time: 09:35 Total Score = 4 1a. Level of Consciousness (LOC) - 0(Alert) 1b. Level of Consciousness (LOC) (Month \T\ Age) - 0(Both) 1c. LOC Commands (Open \T\ Closes Eyes/Junior Underwriter) - 0(Both) 2. Best Gaze (Lateral Gaze Paresis) - 0(Normal) 3. Visual Field Loss - 0(No visual loss) 4. Facial Palsy - 0(Normal) 5a. Left Arm: Motor (10-second hold) - 0(No drift) 5b. Right Arm: Motor (10-second hold) - 1(Drift) 6a. Left Leg: Motor (5-second hold - always test supine) - 1(Drift) 6b. Right Leg: Motor (5-second hold - always test supine) - 1(Drift) 7. Limb Ataxia (finger/nose \T\ heel/dixon - test with eyes open) - 1(Present in one limb) 8. Sensory Loss (pinprick arms/legs/face) - 0(Normal) 9. Best Language: Aphasia (description/naming/reading) - 0(No aphasia) 10. Dysarthria (speech clarity - read or repeat words) - 0(Normal) 11. Extinction and Inattention (visual/tactile/auditory/spatial/personal) - 0(No abnormality) Initials: [facility] NIH Stroke Scale - NIH Stroke Score Date: 06/18/2022 Time: 09:42 Total Score = 5 1a. Level of Consciousness (LOC) - 0(Alert) 1b. Level of Consciousness (LOC) (Month \T\ Age) - 0(Both) 1c. LOC Commands (Open \T\ Closes Eyes/Junior Underwriter) - 0(Both) 2. Best Gaze (Lateral Gaze Paresis) - 0(Normal) 3. Visual Field Loss - 0(No visual loss) 4. Facial Palsy - 0(Normal) 5a. Left Arm: Motor (10-second hold) - 0(No drift) 5b. Right Arm: Motor (10-second hold) - 2(Drift, some effort against gravity) 6a. Left Leg: Motor (5-second hold - always test supine) - 0(No drift) 6b. Right Leg: Motor (5-second hold - always test supine) - 2(Drift, some effort against gravity) 7. Limb Ataxia (finger/nose \T\ heel/dixon - test with eyes open) - 1(Present in one limb) 8. Sensory Loss (pinprick arms/legs/face) - 0(Normal) 9. Best Language: Aphasia (description/naming/reading) - 0(No aphasia) 10. Dysarthria (speech clarity - read or repeat words) - 0(Normal) 11. Extinction and Inattention (visual/tactile/auditory/spatial/personal) - 0(No abnormality) Initials: jr11 Signatures: Dispatcher [employer] EDMS An Casas, RN RN Ana Mai 3 Yoly Perez Jennifer, RN RN jh6 Rudy Hanson MD MD jr11 Corrections: (The following items were deleted from the chart) 11:46 11:32 connected the hospitalist hollow tile partition erector for [facility] with Dr. Hanson for patient transfer center. eb 12:00 11:[address] Elton Turner the hospitalist hollow tile partition erector for [facility] with eb Dr. Hanson for patient transfer center. eb
[2022-06-18 12:02] LABS: SARS-CoV-2 Antigen Rapid Res Negative (Negative)
[2022-06-18] MEDS ORDERED: NA CHLORIDE 0.9% 250 ML ONE (12:28)
[2022-06-18 15:09] VITALS: TEMP 97.7
[2022-06-18 15:12] VITALS: BP 92/62; O2SAT 96
== END 2022-06-18 14:47 | disposition short-term general hospital (02) ==
LOC: ER 09:30
PROC: 30233N1 Transfusion of Nonautologous Red Blood Cells into Peripheral Vein, Percutaneous Approach (ICD-10-PCS; principal; 2022-06-18)
DX: K92.2 Gastrointestinal hemorrhage, unspecified (principal); R47.01 Aphasia; R53.1 Weakness; R29.704 NIHSS score 4; Z20.822 Contact with and (suspected) exposure to COVID-19; Z85.9 Personal history of malignant neoplasm, unspecified
CPT/HCPCS: 85025; 80048; 36415; 86900; 83735; 86850; 85610; 86901; 82947; 85730; 86922; 71045; 96375; 96374; 99285; 87811; 36430; J3480; J0610; P9016; J7050